=== PATIENT | male | born 1965 | race Caucasian/White ===

== ENCOUNTER 2020-10-07 08:02 | Outpatient (REF) | payer MEDICAID, SELFPAY | END 2020-10-07 08:03 | disposition home or self-care (01) | LOC: HO.LAB 08:02 | PROVIDERS: Visit Provider Internal Medicine | DX: Z20.828 Contact with and (suspected) exposure to other viral communicable diseases (principal) | CPT/HCPCS: C9803; U0003 ==

== ENCOUNTER 2020-10-28 08:08 | Outpatient (REF) | payer MEDICAID, SELFPAY ==
[2020-10-28 09:19] LABS: MANUAL DIFF FLAG NO
[2020-10-28 10:09] LABS: Albumin Level 3.9 g/dL (3.5-5.0); Anion Gap 13 (12-20); Blood Urea Nitrogen 25 mg/dL (9-16); Calcium 8.8 mg/dL (8.4-10.2); Carbon Dioxide 28 mmol/L (22-29); Chloride 103 mmol/L (96-108); Estimated Glomerular Filt Rate 44; Magnesium 1.9 mg/dL (1.6-2.6); Phosphorus 3.6 mg/dL (2.7-4.5); Potassium 5.1 mmol/l (3.3-5.1); Sodium 139 mmol/L (135-145)
[2020-10-28 10:45] LABS: Basophils Percent Auto 0.3 % (0-2); Eosinophils Absolute Auto 0.3 X10*3/uL (0.0-0.4); Eosinophils Percent Auto 3.9 % (0-4); Hematocrit 33.4 % (42-52); Hemoglobin 10.2 g/dl (14.0-18.0); Imm Gran Abs Auto 0.04 X10*3/uL (0.00-0.03); Imm Gran Pct Auto 0.6 % (0.0-0.4); Lymphocytes Absolute Auto 1.5 X10*3/uL (1.2-4.9); Lymphocytes Percent Auto 22.8 % (20-40); Mean Corpuscular HGB Conc 30.5 g/dl (31.0-36.0); Mean Corpuscular Hemoglobin 26.4 pg (27.0-33.0); Mean Corpuscular Volume 86.3 fL (80-98); Mean Platelet Volume 9.9 fL (9.4-12.4); Monocytes Absolute Auto 0.6 X10*3/uL (0.1-1.2); Monocytes Percent Auto 8.5 % (2-11); Neutrophils Absolute Auto 4.1 X10*3/uL (2.0-8.3); Neutrophils Percent Auto 63.9 % (45-73); Platelet Count 298 X10*3/uL (160-400); Red Blood Count 3.87 X10*6/uL (4.60-5.80); Red Cell Distribution Width 15.9 % (11.0-16.0); White Blood Count 6.5 X10*3/uL (4.8-10.8)
== END 2020-10-28 08:09 | disposition home or self-care (01) ==
LOC: HO.LAB 08:08
PROVIDERS: Visit Provider Internal Medicine Hypertension Specialist
DX: I12.9 Hypertensive chronic kidney disease with stage 1 through stage 4 chronic kidney disease, or unspecified chronic kidney disease (principal); N18.30 Chronic kidney disease, stage 3 unspecified
CPT/HCPCS: 36415; 80051; 82040; 82310; 82565; 83735; 84100; 84520; 85025; 87086

== ENCOUNTER 2021-01-02 07:37 | Emergency (ER) | payer MEDICAID, SELFPAY ==
[2021-01-02 07:41] VITALS: BP 167/108; PULSE 93; RESP 18; TEMP 37; O2SAT 99; BMI 31.0
--- NOTE | 2021-01-02 09:16 | ED_ITS ---
HPI - Eye Problem General Chief complaint: Eye Problems Stated complaint: R EYE ISSUE Time Seen by Provider: 01/02/21 07:48 Source: patient Mode of arrival: ambulatory Limitations: no limitations History of Present Illness HPI Narrative: 55-year-old male with a past medical history of hypertension, hyperlipidemia and colitis here with complaints of right eye burning, redness, drainage and itchiness for the last 2-3 days. No vision changes. Does not use contacts. Left eye is unaffected. He tells me that he had some crusting over the eye when he woke this morning. MD chief complaint: eye redness Related Data Previous Rx's Medication Instructions Recorded erythromycin 0.5 inch OPHTHALMIC (EYE) TID #3.5 01/02/21 g olopatadine 1 drp OPHTHALMIC (EYE) DAILY #2.5 01/02/21 ml Allergies Allergy/AdvReac Type Severity Reaction Status Date / Time Iodinated Contrast Media Allergy Intermediate HIVES Unverified 07/30/20 15:19 [IV CONTRAST] prednisone [PREDNISONE] Allergy Mild RASH Unverified 07/30/20 15:19 prednisolone Allergy Unknown rash Verified 06/23/20 00:00 Review of Systems Review of Systems: Yes all other systems are reviewed and are negative Constitutional: Constitutional: Reports no additional constitutional complaints, Denies body ache(s), Denies chills, Denies fever(s), Denies headache(s) and Denies weakness Eyes: Eyes: Reports no additional eye complaints, Denies change in vision, Reports eye discharge, Reports irritation and Reports photophobia ENT: Reports system reviewed and no additional complaints, except as document ed, Denies dizziness, Denies headache(s), Denies nasal congestion, Denies nasal discharge and Denies neck pain Cardiovascular: Cardiovascular: Reports no additional cardiovascular complaints, Denies chest pain, Denies leg edema and Denies dyspnea Respiratory: Respiratory: Reports no additional respiratory complaints, Denies cough and Denies dyspnea Gastrointestinal: Gastrointestinal: Reports no additional gastrointestinal complaints, Denies abdominal pain, Denies diarrhea, Denies nausea and Denies vomiting Genitourinary: Genitourinary: Denies urinary incontinence Musculoskeletal: Musculoskeletal: Reports no additional musculoskeletal complaints, Denies back pain, Denies arthralgias, Denies joint swelling, Denies neck pain, Denies numbness and Denies tingling Integumentary/Breasts: Skin/Breast: Reports system reviewed and no additional complaints, except as docu and Denies rash Neurologic: Reports system reviewed and no additional complaints, except as documented, Denies Abnormal speech present, Denies dizziness, Denies headache(s), Denies numbness, Denies tingling and Denies weakness PMFSH Past Medical History Attestation statement: The following information was validated with the patient. Source: old records reviewed and nursing notes reviewed Medical History Colitis HLD (hyperlipidemia) HTN (hypertension) Social History Social History Alcohol intake: never Smoking Status: Never smoker Use of substances other than those prescribed or required for medical reasons: No Advance Directives: No Advance Directives Information Provided: No Physical Exam Vital Signs: Vital Signs: Last Vital Signs Temp 98.6 F 01/02/21 07:41 Pulse 93 01/02/21 07:41 Resp 18 01/02/21 07:41 BP 167/108 H 01/02/21 07:41 Pulse Ox 99 01/02/21 07:41 Body Mass Index 31.0 Const: General: cooperative, healthy appearing, comfortable and no acute distress Orientation/consciousness: patient oriented x3 Limitations: no limitations HENMT: Head: Yes normal to inspection Ears: hearing grossly normal bilaterally General nose exam: Normal external nose present Face and sinus: Yes normal facial exam Mouth: Normal oral and palatal mucosa present Throat: Yes posterior oropharynx normal Eyes: Other: IOP 14 bilaterally General: appearance normal, both eyes and all related structures Visual Toney: normal visual toney by confrontation Alignment and Position: alignment normal Periorbital: periorbital findings normal Eyelids: Yes other (mild upper right eyelid swelling and erythema) Conjunctivae: conjunctival abnormal right (swelling) conjunctival injection and discharge (clear ) Sclerae: sclerae normal Corneas: corneas normal and fluorescein used (NO FB or abrasion) Pupils: Equal, round and reactive pupils present EOM: EOMs intact bilaterally Direct Ophthalmoscopy: normal light reflex and photophobia Neck: Neck: Yes normal visual inspection Chest: Chest palpation & inspection: normal inspection of the chest Resp: Effort & Inspection: normal respiratory effort Auscultation: clear to auscultation bilaterally Cardio: Rate: regular rate Rhythm: regular rhythm Peripheral pulses: Peripheral pulses 2+ throughout GI: Inspection: Yes normal to inspection Palpation (GI): Soft to palpation and nontender Auscultation: normal bowel sounds Back/Spine/Pelvis: Thoracic/Lumbar Spine: thoracic and lumbar spine normal to inspection Skin: General skin exam: no rashes or lesions noted Neuro: General: patient oriented x3, no focal motor deficits and normal sensation to monofilament Cranial nerves: Yes Equal, round and reactive pupils present Cognition (Neuro): normal cognition Speech: No Abnormal speech present Gait exam (Neuro): Normal gait present Motor exam (neuro): 5/5 motor strength present throughout Extrem: General: Yes normal to inspection Course Course Course Narrative: R eye itching, erythema, clear discharge with photophobia. No vision changes. Exam shows conjunctival injection, erythema and discharge. No visual complaints, IOP normal, no corneal FB or abrasion. Likely allergic conjunctivitis now with bacterial conjunctivitis. Reviewed worrisome signs and symptoms and when to return to the emergency department. Comfortable discharge home. Discharge Plan Discharge Clinical Impression: Bacterial conjunctivitis Allergic conjunctivitis Qualifiers: Laterality: right Qualified Code(s): H10.11 - Acute atopic conjunctivitis, right eye Patient Disposition: Home, Self-Care Instructions: Conjunctivitis (ED) Additional Instructions: Wash your hands after using your medications and prior to touching anything else Cool compresses to the eye Follow-up with opthamology as discussed Return for vision changes, vomiting, severe headache Prescriptions: New erythromycin 5 mg/gram (0.5 %) ointment 0.5 inch ophthalmic (eye) TID Qty: 3.5 RF: 0 olopatadine 0.2 % drops 1 drp ophthalmic (eye) DAILY Qty: 2.5 RF: 0 Referrals: Baldemar Munoz [Physician] - 2 days Interventions: ED Discharge Assessment Last Done: 01/02/21 09:28 Discharge Date/Time: 01/02/21 09:28
[2021-01-02] MEDS: Tetracaine HCl/PF 0.5% Oph Sol 4 ML DROPS 3 DROP EYE-RIGHT (09:17)
[2021-01-02] MEDS: Fluorescein Sodium STRIP 1 STRIP EYE-RIGHT (09:18)
== END 2021-01-02 09:28 | disposition home or self-care (01) ==
PROVIDERS: Emergency Provider Emergency Medicine; PCP Nurse Practitioner Family
DX: H10.11 Acute atopic conjunctivitis, right eye (principal); I10 Essential (primary) hypertension
CPT/HCPCS: 99283; 99284

== ENCOUNTER 2021-01-20 08:07 | Emergency (ER) | payer MEDICAID, SELFPAY ==
[2021-01-20 09:38] VITALS: BP 134/84; PULSE 63; RESP 16; TEMP 36.6; O2SAT 99; BMI 31.0
--- NOTE | 2021-01-20 10:42 | ED_ITS ---
HPI - Skin/Abscess/Foreign Bdy General Chief complaint: Skin/Abscess/Foreign Body Stated complaint: lump on abdomen Time Seen by Provider: 01/20/21 09:44 Source: patient Mode of arrival: ambulatory Limitations: no limitations History of Present Illness HPI narrative: Patient also for the last week he has had a cyst on his lower abdomen which is painful with some slight drainage. No fevers or chills. MD complaint: abscess/boil Related Data Previous Rx's Medication Instructions Recorded erythromycin 0.5 inch OPHTHALMIC (EYE) TID #3.5 01/02/21 g olopatadine 1 drp OPHTHALMIC (EYE) DAILY #2.5 01/02/21 ml acetaminophen 650 mg PO Q4H PRN #20 cap 01/20/21 doxycycline monohydrate 100 mg PO BID #14 cap 01/20/21 Allergies Allergy/AdvReac Type Severity Reaction Status Date / Time Iodinated Contrast Media Allergy Intermediate HIVES Unverified 07/30/20 15:19 [IV CONTRAST] prednisone [PREDNISONE] Allergy Mild RASH Unverified 07/30/20 15:19 prednisolone Allergy Unknown rash Verified 06/23/20 00:00 Review of Systems Review of Systems: Yes all other systems are reviewed and are negative Constitutional: Constitutional: Reports no additional constitutional complaints, Denies body ache(s), Denies chills, Denies fever(s), Denies headache(s) and Denies weakness Eyes: Eyes: Reports no additional eye complaints and Denies change in vision ENT: Reports system reviewed and no additional complaints, except as documented, Denies dizziness, Denies headache(s), Denies nasal congestion, Denies nasal discharge and Denies neck pain Cardiovascular: Cardiovascular: Reports no additional cardiovascular complaints, Denies chest pain, Denies leg edema and Denies dyspnea Respiratory: Respiratory: Reports no additional respiratory complaints, Denies cough and Denies dyspnea Gastrointestinal: Gastrointestinal: Reports no additional gastrointestinal complaints, Denies abdominal pain, Denies diarrhea, Denies nausea and Denies vomiting Genitourinary: Genitourinary: Denies urinary incontinence Musculoskeletal: Musculoskeletal: Reports no additional musculoskeletal complaints, Denies back pain, Denies arthralgias, Denies joint swelling, Denies neck pain, Denies numbness and Denies tingling Integumentary/Breasts: Skin/Breast: Reports system reviewed and no additional complaints, except as docu, Reports swelling, Reports erythema and Denies rash Neurologic: Reports system reviewed and no additional complaints, except as documented, Denies Abnormal speech present, Denies dizziness, Denies headache(s), Denies numbness, Denies tingling and Denies weakness PMFSH Past Medical History Attestation statement: The following information was validated with the patient. Source: old records reviewed and nursing notes reviewed Medical History Colitis HLD (hyperlipidemia) HTN (hypertension) Surgical History History of colostomy reversal Social History Social History Alcohol intake: never Smoking Status: Never smoker Smoked in Last 30 Days: No Use of substances other than those prescribed or required for medical reasons: No Advance Directives: Yes Advance Directives Information Provided: Yes Advance Directives on File: No Physical Exam Vital Signs: Vital Signs: Last Vital Signs Temp 97.9 F 01/20/21 09:38 Pulse 63 01/20/21 09:38 Resp 16 01/20/21 09:38 BP 134/84 01/20/21 09:38 Pulse Ox 99 01/20/21 09:38 Body Mass Index 31.0 Const: General: cooperative, healthy appearing, comfortable and no acute distress Orientation/consciousness: patient oriented x3 Limitations: no limitations HENMT: Head: Yes normal to inspection Ears: hearing grossly normal bilaterally General nose exam: Normal external nose present Face and sinus: Yes normal facial exam Mouth: Normal oral and palatal mucosa present Throat: Yes posterior oropharynx normal Eyes: General: appearance normal, both eyes and all related structures Pupils: Equal, round and reactive pupils present Neck: Neck: Yes normal visual inspection Chest: Chest palpation & inspection: normal inspection of the chest Resp: Effort & Inspection: normal respiratory effort Auscultation: clear to auscultation bilaterally Cardio: Rate: regular rate Rhythm: regular rhythm Peripheral pulses: Peripheral pulses 2+ throughout GI: Inspection: Yes normal to inspection Palpation (GI): Soft to palpation and nontender Auscultation: normal bowel sounds Back/Spine/Pelvis: Thoracic/Lumbar Spine: thoracic and lumbar spine normal to inspection Skin: Other: to the low abdomen there is a small superficial abscess with mild induration. NO fluctuance. General skin exam: no rashes or lesions noted Neuro: General: patient oriented x3, no focal motor deficits and normal sensation to monofilament Cranial nerves: Yes Equal, round and reactive pupils present Cognition (Neuro): normal cognition Speech: No Abnormal speech present Gait exam (Neuro): Normal gait present Motor exam (neuro): 5/5 motor strength present throughout Extrem: General: Yes normal to inspection Course Course Course Narrative: Very small superficial lower abdomen abscess with no fluctuance. Will start patient on oral antibiotics. Recommended warm compresses at home. Reviewed worrisome signs and symptoms of when to return to the emergency department. Comfortable discharge home. Discharge Plan Discharge Clinical Impression: Abscess of skin or subcutaneous tissue Qualifiers: Site of cutaneous abscess: trunk Site of cutaneous abscess of trunk: abdominal wall Qualified Code(s): L02.211 - Cutaneous abscess of abdominal wall Patient Disposition: Home, Self-Care Instructions: Abscess (ED) Additional Instructions: Your cyst is not ready to be drained. Apply a warm compresses or warm tea bags 4 times a day Cover it with topical antibiotic ointment and a bandage. Do not wear your pants directly on the site of the cyst. Take antibiotics as prescribed Prescriptions: New acetaminophen 325 mg capsule 650 mg PO Q4H PRN (Reason: pain) Qty: 20 RF: 0 doxycycline monohydrate 100 mg capsule 100 mg PO BID Qty: 14 RF: 0 No Action erythromycin 5 mg/gram (0.5 %) ointment 0.5 inch ophthalmic (eye) TID Qty: 3.5 RF: 0 olopatadine 0.2 % drops 1 drp ophthalmic (eye) DAILY Qty: 2.5 RF: 0 Referrals: Maikel Montenegro NP [Primary Care Provider] - 2 days Interventions: ED Discharge Assessment Last Done: 01/20/21 10:28 Discharge Date/Time: 01/20/21 10:28 Print Language: Montserratian
== END 2021-01-20 10:28 | disposition home or self-care (01) ==
PROVIDERS: Emergency Provider Emergency Medicine Emergency Medical Services; PCP Nurse Practitioner Family
DX: L02.211 Cutaneous abscess of abdominal wall (principal); I10 Essential (primary) hypertension; Z79.899 Other long term (current) drug therapy
CPT/HCPCS: 99283

== ENCOUNTER 2021-03-03 12:11 | Inpatient (IN) | payer MEDICAID, SELFPAY ==
--- NOTE | ~2021-03-03 | CT_ITS ---
EXAMINATION: CT ABDOMEN AND PELVIS WITHOUT CONTRAST CLINICAL INFORMATION: Severe diarrhea. History of colitis. COMPARISON: December 03, 2019 TECHNIQUE: Multidetector volumetric imaging was performed from the superior aspect of the liver through the pubic symphysis. Sagittal and coronal reformatted images were obtained on the technologist's workstation. This CT examination was performed using dose optimization techniques as appropriate, variously including the following: *Automated exposure control *Adjustment of mA and/or kV according to patient size (this includes techniques or standardized protocols for targeted exams where dose is matched to indication/reason for exam; i.e. extremities or head) *Use of iterative reconstruction technique DLP: 949 mGy-cm FINDINGS: LUNG BASES: There is some mild dependent atelectasis present. No pleural or pericardial effusion. Heart is upper limits of normal in size. Aortic valvular and coronary artery calcifications present. LIVER, GALLBLADDER, AND BILIARY TREE: Hepatomegaly is present with vertical span of approximately 22 cm. No focal hepatic mass or intrahepatic bile duct dilatation is identified. The gallbladder is decompressed without pericholecystic fluid or inflammatory change. PANCREAS: Unremarkable. SPLEEN: Unremarkable. A calcified granuloma is present. ADRENAL GLANDS: Unremarkable. KIDNEYS AND URETERS: The kidneys are normal in size, shape, and attenuation. No hydronephrosis, hydroureter, or calculi seen. No perinephric stranding. BLADDER: Unremarkable. GASTROINTESTINAL TRACT: No dilated loops of large or small bowel are evident. Patient status post there is a subtotal colectomy with anastomosis of small bowel to distal sigmoid colon. No free air or free fluid. There is wall thickening involving the remaining sigmoid colon with no significant adjacent soft tissue stranding. No drainable fluid collection is evident. ABDOMINAL WALL: No significant hernia is appreciated. There is a supraumbilical anterior mesh in place. LYMPH NODES: There is an enlarged but normal-appearing left periaortic lymph node at the level of the left renal vein. VASCULAR: There is mild aortoiliac calcified plaque. No abdominal aortic aneurysm. PELVIC VISCERA: Unremarkable. OSSEOUS STRUCTURES: No suspicious destructive bony lesion identified. There are changes of enthesopathy present about the pelvis. There is degenerative change of the SI joints bilaterally. There is significant degenerative disc disease seen with loss of the disc space and marginal sclerosis and spurring at the L5-S1 level. CT/CT abdomen pelvis wo con IMPRESSION: Status post colectomy with thickened wall of remaining sigmoid colon without drainable abscess collection or significant adjacent inflammatory change. Finding does have the appearance of colitis. Hepatomegaly.
[2021-03-03 12:39] VITALS: BP 110/56; PULSE 75; RESP 18; TEMP 36.7; O2SAT 96; BMI 30.2
[2021-03-03 12:54] LABS: MANUAL DIFF FLAG NO
[2021-03-03 12:59] LABS: Basophils Percent Auto 0.6 % (0-2); Eosinophils Absolute Auto 0.2 X10*3/uL (0.0-0.4); Eosinophils Percent Auto 2.3 % (0-4); Hematocrit 31.7 % (42-52); Hemoglobin 10.1 g/dl (14.0-18.0); Imm Gran Abs Auto 0.03 X10*3/uL (0.00-0.03); Imm Gran Pct Auto 0.5 % (0.0-0.4); Lymphocytes Absolute Auto 1.4 X10*3/uL (1.2-4.9); Mean Corpuscular HGB Conc 31.9 g/dl (31.0-36.0); Mean Corpuscular Hemoglobin 28.8 pg (27.0-33.0); Mean Corpuscular Volume 90.3 fL (80-98); Mean Platelet Volume 10.1 fL (9.4-12.4); Monocytes Absolute Auto 0.8 X10*3/uL (0.1-1.2); Monocytes Percent Auto 12.5 % (2-11); Neutrophils Absolute Auto 4.1 X10*3/uL (2.0-8.3); Neutrophils Percent Auto 63.1 % (45-73); Platelet Count 145 X10*3/uL (160-400); Red Blood Count 3.51 X10*6/uL (4.60-5.80); Red Cell Distribution Width 19.2 % (11.0-16.0); White Blood Count 6.4 X10*3/uL (4.8-10.8)
[2021-03-03 13:26] LABS: Anion Gap 14 (12-20); Blood Urea Nitrogen 40 mg/dL (9-16); Calcium 8.2 mg/dL (8.4-10.2); Carbon Dioxide 21 mmol/L (22-29); Chloride 107 mmol/L (96-108); Creatinine Clr Calc Pharmacy 32.9; Estimated Glomerular Filt Rate 23; Glucose Random 120 mg/dL (60-115); Potassium 3.9 mmol/L (3.3-5.1); Sodium 138 mmol/L (135-145)
[2021-03-03] MEDS: 0.9 % Sodium Chloride 1,000 ML 999 ML IVCONT (13:56)
--- NOTE | 2021-03-03 14:03 | ED_ITS ---
HPI - General Adult General Chief complaint: General Medical Stated complaint: Diarrhea Time Seen by Provider: 03/03/21 13:30 Source: patient Mode of arrival: ambulatory Limitations: no limitations History of Present Illness HPI narrative: 56 y/o male with history of Crohn's disease, s/p total colectomy at [facility] 9 years ago who presents to the ED with 1 week of profuse loose and watery, non-bloody stools. He reports some generalized abdominal discomfort and 9/10 rectal pain from going to the bathroom so frequently. He states it is very painful to wipe. No blood. He denies fever, chills, N/V, chest pain or SOB. He reports 4-5 episodes per day diarrhea. He has been eating less but trying to stay hydrated and drinking water but he is having a hard time keeping up with how often he is going. MD complaint: diarrhea x1 week Onset (ago): week(s) (1) Location: abdomen and buttocks Radiation: non-radiation Severity: severe Severity scale (1-10): 9 Quality: stabbing and aching Pain Consistency: constant Relieving factors: none Exacerbating factors: eating Associated symptoms: weakness (mild generalized) Treatments prior to arrival: none Related Data Home Medications Medication Instructions Recorded Confirmed felodipine 1 tab PO QPM 03/03/21 ferrous sulfate 1 tab PO QAM 03/03/21 gabapentin 1 cap PO TID 03/03/21 ketotifen fumarate 1 drp OPHTHALMIC-RIGHT DAILY 03/03/21 lidocaine patch TOPICAL 03/03/21 mesalamine 2 cap PO QID 03/03/21 metoprolol tartrate 1 tab PO BID 03/03/21 pantoprazole 1 tab PO QAM 03/03/21 zolpidem 1 tab PO BEDTIME 03/03/21 Previous Rx's Medication Instructions Recorded erythromycin 0.5 inch OPHTHALMIC (EYE) TID #3.5 01/02/21 g olopatadine 1 drp OPHTHALMIC (EYE) DAILY #2.5 01/02/21 ml acetaminophen 650 mg PO Q4H PRN #20 cap 01/20/21 doxycycline monohydrate 100 mg PO BID #14 cap 01/20/21 Allergies Allergy/AdvReac Type Severity Reaction Status Date / Time Iodinated Contrast Media Allergy Intermediate HIVES Unverified 07/30/20 15:19 [IV CONTRAST] prednisone [PREDNISONE] Allergy Mild RASH Unverified 07/30/20 15:19 prednisolone Allergy Unknown rash Verified 06/23/20 00:00 Review of Systems Review of Systems: Constitutional: No Fever, No Chills ENT/Mouth: No sore throat, No Rhinorrhea, No Swallowing Difficulty Cardiovascular: No Chest Pain, No SOB Respiratory: No Cough, No Sputum, No Wheezing, No dyspnea Gastrointestinal: No Nausea, No Vomiting, + Diarrhea, + abdominal Pain, No Hematochezia, No Melena Genitourinary: No Dysuria, No Urinary Frequency, No Hematuria Musculoskeletal: No joint pain, No Myalgias Skin: No Skin Lesions, No rash Neuro: + Weakness, No Numbness, No Dizziness, No Headache Psych: No Anxiety/Panic, No Depression Heme/Lymph: No Bruising, No Lymphadenopathy Endocrine: No Polyuria, No Polydipsia PMFSH Past Medical History Attestation statement: The following information was validated with the patient. Medical History (Updated 03/03/21 @ 17:05 by EDU Ayers) CKD (chronic kidney disease) Colitis HLD (hyperlipidemia) HTN (hypertension) Surgical History (Updated 03/03/21 @ 16:58 by Rebecca Houston NP) H/O cervical spine surgery H/O total colectomy History of colostomy reversal Family History Family History (Updated 03/03/21 @ 17:00 by Rebecca Houston NP) Mother Stroke Diabetes mellitus HTN (hypertension), benign Hyperlipidemia Brother Diabetes mellitus Social History Social History Alcohol intake: never Smoking Status: Never smoker Advance Directives: No Advance Directives Information Provided: No Physical Exam Vital Signs: Vital Signs: Last Vital Signs Temp 98.1 F 03/03/21 12:39 Pulse 67 03/03/21 14:10 Resp 16 03/03/21 14:10 BP 108/53 L 03/03/21 14:10 Pulse Ox 98 03/03/21 14:10 Body Mass Index 30.2 Appearance: Alert. Oriented X3. No acute distress. Eyes: Pupils equal, round and reactive to light. ENT: Pharynx normal. Neck: Normal inspection. Neck supple. CVS: Normal heart rate and rhythm. Pulses normal. Respiratory: No respiratory distress. Breath sounds normal. Abdomen: Softly distended with moderate diffuse tenderness, mostly around umbilicus. +guarding and rebound. +hyperactive BS x4, not high pitched. GUDELIA: skin around anus is mildly erythematous and raw, tender to touch, no apprecibale fistula or fissue appreciated. tender rectal examination with normal rectal tone, no masses, no bleeding. Skin: Skin warm and dry. Normal skin color. Normal skin turgor. No rashes. Extremities: No lower extremity edema. Neuro: Oriented X 3. No motor deficit. No sensory deficit. Course Course Course Narrative: 56 y/o male with history of Crohn's disease s/p total colectomy and colostomy reversal several years ago presenting to the ED wtih 5-7 days of progressively worsening diarrhea and abdominal pain. VS stable on arrival, no fevers. He is tender throughout his abdomen but it is soft. Initial labs showing CITLALY on probable CKD. Likely pre-renal due to dehydration and hypovolemia. No leukocytosis. IVF ordered. Will get dry CT for further evaluation. Doubt obstruction without N/V. Reevaluation(s) Reevaluation #1: CT scan showing: Status post colectomy with thickened wall of remaining sigmoid colon without drainable abscess collection or significant adjacent inflammatory change. Finding does have the appearance of colitis. Hepatomegaly. IV antibiotics ordered. Initial dose of IV Fentanyl helped but pain persists. Additional Fentanyl ordered. Dr. Godwin tigertexted on recs. Will plan for admission. Dr. Coreas texted for admission. Patient aware of plan and agrees to admission. Medical Decision Making Lab Data Result diagrams: 03/03/21 12:50 03/03/21 12:50 Labs: Lab Results 03/03/21 03/03/21 Range/Units 12:50 12:50 WBC 6.4 (4.8-10.8) X10*3/uL RBC 3.51 L (4.60-5.80) X10*6/uL Hgb 10.1 L (14.0-18.0) g/dl Hct 31.7 L (42-52) % MCV 90.3 (80-98) fL MCH 28.8 (27.0-33.0) pg MCHC 31.9 (31.0-36.0) g/dl RDW 19.2 H (11.0-16.0) % Plt Count 145 L D (160-400) X10*3/uL MPV 10.1 (9.4-12.4) fL Immature Gran % (Auto) 0.5 H (0.0-0.4) % Neut % (Auto) 63.1 (45-73) % Lymph % (Auto) 21.0 (20-40) % Cotton % (Auto) 12.5 H (2-11) % Eos % (Auto) 2.3 (0-4) % Baso % (Auto) 0.6 (0-2) % Lymph # (Auto) 1.4 (1.2-4.9) X10*3/uL Cotton # (Auto) 0.8 (0.1-1.2) X10*3/uL Eos # (Auto) 0.2 (0.0-0.4) X10*3/uL Baso # (Auto) 0.0 (0.0-0.2) X10*3/uL Abs Immat Gran (auto) 0.03 (0.00-0.03) X10*3/uL Absolute Neuts (auto) 4.1 (2.0-8.3) X10*3/uL Absolute Nucleated RBC 0.000 (0.0-0.012) X10*3/uL Nucleated RBC % (auto) 0.0 (0.0-0.2) /100WBC Sodium 138 (135-145) mmol/L Potassium 3.9 (3.3-5.1) mmol/L Chloride 107 (96-108) mmol/L Carbon Dioxide 21 L (22-29) mmol/L Anion Gap 14 (12-20) BUN 40 H D (9-16) mg/dL Creatinine 2.82 H (0.5-1.4) mg/dL Estim Creat Clear Calc 32.9 Estimated GFR 23 Random Glucose 120 H (60-115) mg/dL Calcium 8.2 L D (8.4-10.2) mg/dL Total Bilirubin 0.5 (0.0-1.0) mg/dL Direct Bilirubin 0.2 (0.0-0.5) mg/dL AST 39 H (5-37) U/L ALT 24 (0-40) U/L Alkaline Phosphatase 68 (39-117) U/L Total Protein 7.2 (6.5-8.0) g/dL Albumin 3.7 (3.5-5.0) g/dL Discharge Plan Discharge Clinical Impression: Colitis, Acute kidney injury superimposed on CKD, Acute dehydration Patient Disposition: Admitted As Inpatient Prescriptions: No Action erythromycin 5 mg/gram (0.5 %) ointment 0.5 inch ophthalmic (eye) TID Qty: 3.5 RF: 0 olopatadine 0.2 % drops 1 drp ophthalmic (eye) DAILY Qty: 2.5 RF: 0 acetaminophen 325 mg capsule 650 mg PO Q4H PRN (Reason: pain) Qty: 20 RF: 0 doxycycline monohydrate 100 mg capsule 100 mg PO BID Qty: 14 RF: 0 ketotifen fumarate 0.025 % (0.035 %) drops 1 drp ophthalmic-Right DAILY RF: 0 felodipine 5 mg tablet extended release 24 hr 1 tab PO QPM RF: 0 pantoprazole 40 mg tablet,delayed release (DR/EC) 1 tab PO QAM RF: 0 ferrous sulfate 325 mg (65 mg iron) tablet 1 tab PO QAM RF: 0 lidocaine 5 % adhesive patch,medicated topical RF: 0 metoprolol tartrate 50 mg tablet 1 tab PO BID RF: 0 gabapentin 100 mg capsule 1 cap PO TID RF: 0 zolpidem 10 mg tablet 1 tab PO BEDTIME RF: 0 mesalamine 400 mg capsule (with del rel tablets) 2 cap PO QID RF: 0
[2021-03-03 14:09] LABS: Alanine Aminotransferase 24 U/L (0-40); Albumin Level 3.7 g/dL (3.5-5.0); Alkaline Phosphatase 68 U/L (39-117); Aspartate Amino Transferase 39 U/L (5-37); Bilirubin Direct 0.2 mg/dL (0.0-0.5); Bilirubin Total 0.5 mg/dL (0.0-1.0); Total Protein 7.2 g/dL (6.5-8.0)
[2021-03-03 14:10] VITALS: BP 108/53; PULSE 67; RESP 16; O2SAT 98
[2021-03-03] MEDS: fentaNYL citrate/PF 100 MCG/2 ML VIAL 50 MCG IVPUSH (14:15)
[2021-03-03 16:50] VITALS: BP 116/61; PULSE 64; O2SAT 99
--- NOTE | 2021-03-03 16:54 | P.HPHOSP_ITS ---
History of Present Illness Date of Service: 03/03/21 <Rebecca Houston NP - Last Filed: 03/03/21 18:04> Chief Complaint: abdominal pain and diarrhea <Rebecca Houston NP - Last Filed: 03/03/21 18:04> 56-year-old man with history of Crohn's disease presents with complaints of diarrhea and abdominal pain over the last week. He denies any recent travel or improperly cooked foods. He has a history of colectomy approximately 9 years ago he reports that he has not had a Crohn's exacerbation in many years. He is on mesalamine chronically. He reports that he started having abdominal pain and cramping and watery stools with gas several times a day and he has been having trouble eating and sleeping. He denied chest pain, shortness of breath, nausea, vomiting. He did report when he has diarrhea he notices some blood on the toilet paper but none in the toilet. abdominal CT shows colitis to the remai leonel sigmoid colon without any abscess or fluid collection. Vital signs are stable. Creatinine is elevated 2.82. He was given Rocephin, Flagyl, IV fluid and pain medicine. He will be admitted for further management and treatment of acute colitis. <Rebecca Houston NP - Last Filed: 03/03/21 18:04> Review of Systems Review of Systems: Denies any recent fever chills or decrease in appetite respiratory denies any shortness of breath coverage production cardiovascular is adjustment of any PND or edema gastrointestinal denies any dysphagia abdominal pain nausea vomiting or diarrhea genitourinary denies any dysuria frequency or hematuria musculoskeletal denies any joint pain or swelling neuropsych denies any weakness or seizures all other systems reviewed are negative <Rebecca Houston NP - Last Filed: 03/03/21 18:04> [facility] Medical History: Medical History CKD (chronic kidney disease) Colitis HLD (hyperlipidemia) HTN (hypertension) <Rebecca Houston NP - Last Filed: 03/03/21 18:04> Family History: Family History (Updated 03/03/21 @ 17:00 by Rebecca Houston NP) Mother Stroke Diabetes mellitus HTN (hypertension), benign Hyperlipidemia Brother Diabetes mellitus <Rebecca Houston NP - Last Filed: 03/03/21 18:04> Surgical History: Surgical History H/O cervical spine surgery H/O total colectomy History of colostomy reversal <Rebecca Houston NP - Last Filed: 03/03/21 18:04> Social History: Social History Household Members: None Housing: House Do you presently have visiting nurse or other home services: No Alcohol intake: never Smoking Status: Never smoker Use of substances other than those prescribed or required for medical reasons: Yes Substance Use Type: Heroin Substance Use Frequency: Daily Last Used Substance: Days (ago) Last Used Substance Other:: 7 days Currently Displaying Signs/Symptoms of Drug Intoxication Withdrawal: No Any prior treatment program specific to substance use: Yes Do you feel safe in your current relationship?: No Current Relationship Is there a partner from a previous relationship who is making you feel unsafe now?: No Are you made to feel afraid or neglected: No Advance Directives: No Advance Directives Information Provided: No Do you have thoughts of harming others: None Do you have a plan to hurt others: No Plan Recently lost weight without trying: No <Rebecca Houston NP - Last Filed: 03/03/21 18:04> Meds Allergies/Adverse reactions: Allergies Allergy/AdvReac Type Severity Reaction Status Date / Time Iodinated Contrast Media Allergy Intermediate HIVES Unverified 07/30/20 15:19 [IV CONTRAST] prednisone [PREDNISONE] Allergy Mild RASH Unverified 07/30/20 15:19 prednisolone Allergy Unknown rash Verified 06/23/20 00:00 <Rebecca Houston NP - Last Filed: 03/03/21 18:04> Active Medications: Current Medications Generic Name Dose Route Start Last Admin Trade Name Freq PRN Reason Stop Dose Admin Ceftriaxone Sodium 1 gm/ 50 mls @ 100 mls/hr 03/04/21 15:00 Sodium Chloride IV Q24H MELVI Metronidazole 500 mg in 100 mls @ 100 mls/hr 03/03/21 22:00 Flagyl IV Q8H MELVI Dextrose/Sodium Chloride 1,000 mls @ 80 mls/hr 03/03/21 17:00 D5ns IVCONT .[id number] MELVI Morphine Sulfate 2 mg 03/03/21 16:53 Morphine Sulfate 2 Mg/Ml Cartridge IVPUSH Q4H PRN Pain, Moderate (Pain Scale 4-6 Ondansetron HCl 4 mg 03/03/21 16:50 Ondansetron Hcl 4 Mg/2 Ml Vial IVPUSH Q8H PRN Nausea and Vomiting Pharmacy Consult 1 each 03/03/21 16:45 Consult Rx Perform Med Rec MISCELLANE ONCE PRN Consult order Sodium Chloride 3 ml 03/04/21 00:00 0.9 % Sodium Chloride Flush 3 Ml Syringe IVFLUSH QSHIFT [facility] <Rebecca Houston NP - Last Filed: 03/03/21 18:04> Home medications: Home Medications Medication Instructions Recorded Confirmed Last Taken Type felodipine 1 tab PO DAILY 03/03/21 03/03/21 03/03/21 History ferrous sulfate 1 tab PO DAILY 03/03/21 03/03/21 03/03/21 History gabapentin 1 cap PO TID 03/03/21 03/03/21 03/03/21 History ketotifen fumarate 1 drp OPHTHALMIC-RIGHT DAILY 03/03/21 03/03/21 03/03/21 History lidocaine 1 patch TOPICAL DAILY 03/03/21 03/03/21 03/02/21 History mesalamine 2 cap PO TID 03/03/21 03/03/21 03/03/21 History metoprolol tartrate 1 tab PO BID 03/03/21 03/03/21 03/03/21 History pantoprazole 1 tab PO DAILY 03/03/21 03/03/21 03/03/21 History rosuvastatin 1 tab PO BEDTIME 03/03/21 03/03/21 03/02/21 History zolpidem 1 tab PO BEDTIME 03/03/21 03/03/21 03/02/21 History <Rebecca Houston NP - Last Filed: 03/03/21 18:04> Physical Exam Vital Signs and Narrative: Vital Signs: Last Vital Signs Temp 98.1 F 03/03/21 12:39 Pulse 67 03/03/21 14:10 Resp 16 03/03/21 14:10 BP 108/53 L 03/03/21 14:10 Pulse Ox 98 03/03/21 14:10 Body Mass Index 30.2 <Rebecca Houston NP - Last Filed: 03/03/21 18:04> Appearing in no acute distress head is normocephalic atraumatic eyes pupils are PERRLA sclera is anicteric mouth throat mucous membranes are intact and moist neck is supple no lymphadenopathy, no JVD noted lung sounds are clear to auscultation heart regular rate rhythm, clear S1, S2 positive bowel sounds, abdomen tender diffuse neuro patient is alert x3, no focal deficits <Rebecca Houston NP - Last Filed: 03/03/21 18:04> Results Labs CBC and Chem 7: : 03/04/21 05:40 03/04/21 05:40 <Rebecca Houston NP - Last Filed: 03/03/21 18:04> Labs: Laboratory Results - last 24 hr 03/03/21 03/03/21 12:50 12:50 MCV 90.3 MCH 28.8 MCHC 31.9 RDW 19.2 H Plt Count 145 L D MPV 10.1 Immature Gran % (Auto) 0.5 H Neut % (Auto) 63.1 Lymph % (Auto) 21.0 [place] % (Auto) 12.5 H Eos % (Auto) 2.3 Baso % (Auto) 0.6 Lymph # (Auto) 1.4 [place] # (Auto) 0.8 Eos # (Auto) 0.2 Baso # (Auto) 0.0 Abs Immat Gran (auto) 0.03 Absolute Neuts (auto) 4.1 Absolute Nucleated RBC 0.000 Nucleated RBC % (auto) 0.0 Anion Gap 14 Estim Creat Clear Calc 32.9 Estimated GFR 23 Random Glucose 120 H Calcium 8.2 L D Total Bilirubin 0.5 Direct Bilirubin 0.2 AST 39 H ALT 24 Alkaline Phosphatase 68 Total Protein 7.2 Albumin 3.7 <Rebecca Houston NP - Last Filed: 03/03/21 18:04> Imaging Radiologist's Impressions: Impressions Abdomen/Pelvis CT 03/03/21 13:30 IMPRESSION: Status post colectomy with thickened wall of remaining sigmoid colon without drainable abscess collection or significant adjacent inflammatory change. Finding does have the appearance of colitis. Hepatomegaly. <Rebecca Houston NP - Last Filed: 03/03/21 18:04> Assessment and Plan (1) Ulcerative colitis: Status: Acute <Rebecca Houston NP - Last Filed: 03/03/21 18:04> 56 year old man admitted with abdominal pain found to have colitis. Patient has had history of Crohn's with colectomy more than 9 years ago at [facility]. Colitis. Multiple episodes of diarrhea over the last week, history of Crohn's. Hold off on steroids for now as per Gastroenterology Nitza Lobo Check stool studies NPO for now IV fluids CITLALY on CKD . Likely related to diarrhea, hypokalemia. IV fluids Follow BMP closely If no improvement seen consider consulting Nephrology. Normocytic anemia /thrombocytopenia. Stool occult negative. Patient reports blood on the toilet paper but none in the stool. Trend Hypertension. Blood pressure on the softer side. Hold felodipine and metoprolol for now. Hyperlipidemia Statin DVT prophylaxis with heparin Attending: Dr. Laird <Rebecca Houston NP - Last Filed: 03/03/21 18:04> (2) Acute kidney injury superimposed on CKD: Status: Acute <Rebecca Houston NP - Last Filed: 03/03/21 18:04> (3) Acute dehydration: Status: Acute <Rebecca Houston NP - Last Filed: 03/03/21 18:04> (4) Colitis: Status: Acute <Rebecca Houston NP - Last Filed: 03/03/21 18:04> Addendum to documentation by midlevel I saw and examined the patient and participated in the arias portion of the E/M service. I agree with the history and exam as documented by EQUIPMENT MECHANIC, patient presents with abdominal pain and has colitis, renal failure. Will admit fo IV Abx, pain management and hydration. O/w I agree with A/P per H and P <Herb Laird MD - Last Filed: 03/04/21 11:16>
--- NOTE | 2021-03-03 17:34 | PC.NURSE ---
pt being admitted for acute colitis flare, came in with abd pain, IV LAC ns bolus given, seen by hospitalist
--- NOTE | 2021-03-03 18:31 | PC.NURSE ---
tech currently at bedside getting blood cultures and lactic
[2021-03-03 19:02] LABS: Lactic Acid 1.3 mmol/L (0.5-2.0)
--- NOTE | 2021-03-03 19:04 | PC.NURSE ---
attempted to call report were unable to take at this time. report given to amaya jimenez
--- NOTE | 2021-03-03 19:11 | PC.NURSE ---
Report received. PT is resting in bed, no apparent distress. PT is waiting to be transferred to a bed upstairs. Report done by NEGRO Wolff.
[2021-03-03] MEDS: Heparin Sodium,Porcine 5,000 UNIT/ML VIAL 5000 UNIT SUBCUT (19:14)
[2021-03-03] MEDS: cefTRIAXone sodium 1 GM in 0.9 % Sodium Chloride 50 ML IV (19:14)
[2021-03-03] MEDS: Morphine Sulfate 2 MG/ML CARTRIDGE IVPUSH (19:18)
[2021-03-03 19:53] VITALS: BP 161/72; PULSE 67; RESP 17; TEMP 36.6; O2SAT 98
[2021-03-03] MEDS: Zolpidem Tartrate 5 MG TABLET 10 MG PO (21:33)
[2021-03-03] MEDS: Gabapentin 100 MG CAPSULE PO (21:33)
[2021-03-03] MEDS: Mesalamine 400 MG CAP.DRTAB. 800 MG PO (21:33)
[2021-03-03] MEDS: metroNIDAZOLE/NS 500 MG/100 ML PIGGYBACK 100 MG IV (21:34)
[2021-03-03] MEDS: Dextrose 5 % and 0.9 % NaCl 1,000 ML 80 ML IVCONT (22:51)
[2021-03-03 23:28] VITALS: BP 101/58; PULSE 75; RESP 20; TEMP 36.7; O2SAT 97
[2021-03-04] MEDS: Morphine Sulfate 2 MG/ML CARTRIDGE IVPUSH ×4 (01:24→22:16)
[2021-03-04 02:46] LABS: Leukocytes Stool Qualitative NEGATIVE (NEGATIVE)
[2021-03-04 03:40] VITALS: BP 145/97; PULSE 84; RESP 20; TEMP 36.3; O2SAT 97
[2021-03-04 04:41] LABS: CDIFF Ag Negative (Negative); CDIFF Internal ctrl Dots and bkg OK (V); CDiff Toxin Negative (Negative)
[2021-03-04] MEDS: Omeprazole 20 MG CAPSULE.DR PO (05:20)
[2021-03-04] MEDS: metroNIDAZOLE/NS 500 MG/100 ML PIGGYBACK 100 MG IV ×3 (05:20→21:06)
[2021-03-04] MEDS: Heparin Sodium,Porcine 5,000 UNIT/ML VIAL 5000 UNIT SUBCUT ×2 (05:21→17:01)
[2021-03-04 06:02] LABS: MANUAL DIFF FLAG NO
[2021-03-04 06:08] LABS: Basophils Percent Auto 0.2 % (0-2); Eosinophils Absolute Auto 0.1 X10*3/uL (0.0-0.4); Eosinophils Percent Auto 2.5 % (0-4); Hematocrit 30.9 % (42-52); Hemoglobin 9.5 g/dl (14.0-18.0); Imm Gran Abs Auto 0.03 X10*3/uL (0.00-0.03); Imm Gran Pct Auto 0.6 % (0.0-0.4); Lymphocytes Absolute Auto 0.8 X10*3/uL (1.2-4.9); Mean Corpuscular HGB Conc 30.7 g/dl (31.0-36.0); Mean Corpuscular Hemoglobin 27.9 pg (27.0-33.0); Mean Corpuscular Volume 90.6 fL (80-98); Mean Platelet Volume 9.3 fL (9.4-12.4); Monocytes Absolute Auto 0.7 X10*3/uL (0.1-1.2); Monocytes Percent Auto 14.6 % (2-11); Neutrophils Absolute Auto 3.1 X10*3/uL (2.0-8.3); Neutrophils Percent Auto 65.1 % (45-73); Platelet Count 109 X10*3/uL (160-400); Red Blood Count 3.41 X10*6/uL (4.60-5.80); Red Cell Distribution Width 19.1 % (11.0-16.0); White Blood Count 4.8 X10*3/uL (4.8-10.8)
[2021-03-04 06:34] LABS: Anion Gap 14 (12-20); Blood Urea Nitrogen 32 mg/dL (9-16); Carbon Dioxide 23 mmol/L (22-29); Chloride 109 mmol/L (96-108); Estimated Glomerular Filt Rate 33; Glucose Random 85 mg/dL (60-115); Potassium 3.9 mmol/L (3.3-5.1); Sodium 142 mmol/L (135-145)
--- NOTE | 2021-03-04 07:35 | P.CDIC_ITS ---
CDI Concurrent Query Service Date: 03/04/21 Documentation Clarification: Please clarify if you are treating a proba ble/suspected/likely or confirmed: CKD, please specify stage, (1, 2, 3a, 3b, 4, 5) ESRD Provider Response: CKD Stage 3 PLEASE DO NOT DELETE/MODIFY EXISTING CONTENT Additional information is needed in order to code to the highest accuracy and appropriate Severity of Illness (SOI). Please clarify the information noted below in your progress notes and discharge summary. Risk Factors/Clinical Indicators/Treatments 56 year old male admitted with diarrhea for one week and weakness PMH: Crohns Disease with colectomy and colostomy reversal, CKD, Hypertension BUN 40 Creatinine 2.82 Per H&P Impression: Acute Ulcerative Colitis, CITLALY on CKD CDS: Kaci Gutierres RN Contact Number: [phone] Please Review the information above and exercise your independent professional judgment in responding to the query. If you concur, pleas document in the PROGRESS NOTES and DISCHARGE SUMMARY. If you do not agree with the query, please document in the query above. THIS QUERY IS PART OF THE PERMANENT MEDICAL RECORD
[2021-03-04 07:52] VITALS: BP 155/91; PULSE 83; RESP 19; TEMP 37.3; O2SAT 97
[2021-03-04] MEDS: 0.9 % Sodium Chloride Flush 3 ML SYRINGE IVFLUSH ×2 (07:55→16:26)
[2021-03-04] MEDS: Gabapentin 100 MG CAPSULE PO ×3 (07:55→21:01)
[2021-03-04] MEDS: Mesalamine 400 MG CAP.DRTAB. 800 MG PO ×3 (07:55→21:00)
[2021-03-04 08:07] LABS: Glucose, Whole Blood 86 mg/dL (60-115)
[2021-03-04] MEDS: Ketotifen Fumarate 0.025% Oph 5 ML DRPBTL 1 DROP EYE-RIGHT (11:11)
--- NOTE | 2021-03-04 11:19 | P.PNIM_ITS ---
Subjective Subjective Date of Service: 03/05/21 Interval History: Seen in f/u for colitis, citlaly/ckd. He has back pain that he attributes to covid vac[place]. Abdominal pain is better Review of Systems Gen: no fever Resp: no sob, no cough CV: no chest, no GEORGE, no leg edema GI: No n/v, no abd pain Neuro: No confusion Physical Exam Vital Signs: Vital Signs: Last Vital Signs Temp 99.2 F 03/04/21 07:52 Pulse 83 03/04/21 07:52 Resp 19 03/04/21 07:52 BP 155/91 H 03/04/21 07:52 Pulse Ox 97 03/04/21 07:52 Body Mass Index 30.2 General: AO X 3, no acute distress Resp: CTA bilateral CVS: S1,S2,RRR GI: +BS, NT, mild mid abdominal tenderness Skin: No rash Neuro: motor grossly intact Psych: appropriate affect Objective Data Current Medications Generic Name Dose Route Start Last Admin Trade Name Freq PRN Reason Stop Dose Admin Gabapentin 100 mg 03/03/21 21:00 03/04/21 07:55 Gabapentin 100 Mg Capsule PO 100 mg TID MELVI Administration Heparin Sodium (Porcine) 5,000 unit 03/03/21 18:15 03/04/21 05:21 Heparin Sodium,Porcine 5,000 Unit/Ml Vial SUBCUT 5,000 unit Q12H MELVI Administration Ceftriaxone Sodium 1 gm/ 50 mls @ 100 mls/hr 03/04/21 15:00 Sodium Chloride IV Q24H MELVI Metronidazole 500 mg in 100 mls @ 100 mls/hr 03/03/21 22:00 03/04/21 06:26 Flagyl IV Infused Q8H MELVI Infusion Dextrose/Sodium Chloride 1,000 mls @ 80 mls/hr 03/03/21 17:00 03/04/21 07:54 D5ns IVCONT Not Given .[id number] MELVI Ketotifen Fumarate 1 drop 03/04/21 09:00 03/04/21 11:11 Ketotifen Fumarate 0.025% Oph 5 Ml Drpbtl EYE-RIGHT 1 drop DAILY MELVI Administration Mesalamine 800 mg 03/03/21 21:00 03/04/21 07:55 Mesalamine 400 Mg Cap.Drtab. PO 800 mg TID MELVI Administration Morphine Sulfate 2 mg 03/03/21 16:53 03/04/21 08:00 Morphine Sulfate 2 Mg/Ml Cartridge IVPUSH 2 mg Q4H PRN Administration Pain, Moderate (Pain Scale 4-6 Omeprazole 20 mg 03/04/21 06:30 03/04/21 05:20 Omeprazole 20 Mg Capsule. PO 20 mg DAILY@0630 MELVI Administration Ondansetron HCl 4 mg 03/03/21 16:50 Ondansetron Hcl 4 Mg/2 Ml Vial IVPUSH Q8H PRN Nausea and Vomiting Pharmacy Consult 1 each 03/03/21 16:45 Consult Rx Perform Med Rec MISCELLANE ONCE PRN Consult order Sodium Chloride 3 ml 03/04/21 00:00 03/04/21 07:55 0.9 % Sodium Chloride Flush 3 Ml Syringe IVFLUSH 3 ml QSHIFT MELVI Administration Zolpidem Tartrate 10 mg 03/03/21 21:00 03/03/21 21:33 Zolpidem Tartrate 5 Mg Tablet PO 10 mg BEDTIME MELVI Administration Labs CBC & Chem 7: 03/04/21 05:40 03/04/21 05:40 Assessment and Plan (1) Ulcerative colitis: Status: Acute (2) Acute kidney injury superimposed on CKD: Status: Acute (3) Acute dehydration: Status: Acute (4) Colitis: Status: Acute Assessment and Plan: 56 year old man admitted with abdominal pain found to have colitis. Patient has had history of Crohn's with colectomy more than 9 years ago at [facility]. Colitis. stool studies penind contineu ceftriaxone and falgy gi eval CITLALY on CKD 3 . d/t pre renal from diaarrhe, Cr is presently within baseline Normocytic anemia /thrombocytopenia. Stool occult negative. Hypertension. Restart Metoporolol Hyperlipidemia Statin DVT prophylaxis with heparin
[2021-03-04 11:56] VITALS: BP 149/91; PULSE 75; RESP 17; TEMP 37.3; O2SAT 97
[2021-03-04] MEDS: Dextrose 5 % and 0.9 % NaCl 1,000 ML 80 ML IVCONT (12:13)
--- NOTE | 2021-03-04 12:45 | MHC.CM.PN ---
CM MET WITH PT WHO REPORTS HE LIVES ALONE AND IS INDEPENDENT WITH CARE AND MOBILITY. PT DENIES THE USE OF DME OR HOME SERVICES. PT COMPLETED A HCP TODAY NAMING HIS S/O, LEONCIO MOREL ([phone]) HIS AGENT. PT CONFIRMS HIS PCP IS AROLDO MAXWELL. CURRENT DC PLAN IS HOME WITH NO SERVICES PT TO SELF ARRANGE TRANSPORT
--- NOTE | 2021-03-04 13:46 | PM.GICN ---
History of Present Illness Data of Consult Service Date: 03/04/21 Requesting physician: [facility] Primary Care Provider: Maikel Montenegro NP [facility] Reason for consult: colitis 56 yr old m with hx of opioid use, HTN, and crohns disease with hx of total colectomy with stoma then reversal and anastomosis with rectum who I am asked to see for evaluation of diarrhea. He has been having numerous diarrheal stools for the last 1-2 weeks associated with RLQ discomfort and cramps. Blood noted on wiping, but not in the toilet. He denies any recent travel or improperly cooked foods, no sick contacts or recent antibiotics. He denied chest pain, shortness of breath, nausea, vomiting. He is on asacol for his crohns disease but unsure if it helps him or not. He was given Rocephin, Flagyl, IV fluid and pain medicine and today says that he has not had further diarrhea. He is worried about making sure he gets his daily methadone. Abdominal CT reported by radiologist as showing colitis to the remaining sigmoid colon without any abscess or fluid collection. His last colonoscopy was 01/2020 and he appeared to have a pouch without any sigmoid colona s noted in the CT scan, the bx of small bowel were normal, as were the pouch. There did appear to be inflammation around ileo anal area but bx were ok. I gave him cipro at the time and anti fungal cream due to maceration of anal skin due to diarrhea. Review of Systems Review of Systems: Gen: no fever Resp: no sob, no cough CV: no chest, no GEORGE, no leg edema GI: No n/v, no abd pain Neuro: No confusion Constitutional: Constitutional: Reports as per HPI [facility] Past Medical History Medical History (Updated 03/04/21 @ 16:11 by Margot Silva MD) CKD (chronic kidney disease) Colitis HLD (hyperlipidemia) HTN (hypertension) Family History Family History (Updated 03/03/21 @ 17:00 by Rebecca Houston NP) Mother Stroke Diabetes mellitus HTN (hypertension), benign Hyperlipidemia Brother Diabetes mellitus Surgical History Surgical History H/O cervical spine surgery H/O total colectomy History of colostomy reversal Social History Social History Household Members: None Housing: House Do you presently have visiting nurse or other home services: No Alcohol intake: never Smoking Status: Never smoker Use of substances other than those prescribed or required for medical reasons: Yes Substance Use Type: Heroin Substance Use Frequency: Daily Last Used Substance: Days (ago) Last Used Substance Other:: 7 days Currently Displaying Signs/Symptoms of Drug Intoxication Withdrawal: No Any prior treatment program specific to substance use: Yes Do you feel safe in your current relationship?: No Current Relationship Is there a partner from a previous relationship who is making you feel unsafe now?: No Are you made to feel afraid or neglected: No Advance Directives: No Advance Directives Information Provided: No Do you have thoughts of harming others: None Do you have a plan to hurt others: No Plan Recently lost weight without trying: No service: No Current occupational status: unemployed Meds Allergies Allergy/AdvReac Type Severity Reaction Status Date / Time Iodinated Contrast Media Allergy Intermediate HIVES Unverified 07/30/20 15:19 [IV CONTRAST] prednisone [PREDNISONE] Allergy Mild RASH Unverified 07/30/20 15:19 prednisolone Allergy Unknown rash Verified 06/23/20 00:00 Active Medications: Current Medications Generic Name Dose Route Start Last Admin Trade Name Evie PRN Reason Stop Dose Admin Gabapentin 100 mg 03/03/21 21:00 03/04/21 07:55 Gabapentin 100 Mg Capsule PO 100 mg TID MELVI Administration Heparin Sodium (Porcine) 5,000 unit 03/03/21 18:15 03/04/21 05:21 Heparin Sodium,Porcine 5,000 Unit/Ml Vial SUBCUT 5,000 unit Q12H MELVI Administration Ceftriaxone Sodium 1 gm/ 50 mls @ 100 mls/hr 03/04/21 15:00 Sodium Chloride IV Q24H MELVI Metronidazole 500 mg in 100 mls @ 100 mls/hr 03/03/21 22:00 03/04/21 06:26 Flagyl IV Infused Q8H MELVI Infusion Dextrose/Sodium Chloride 1,000 mls @ 80 mls/hr 03/03/21 17:00 03/04/21 12:13 D5ns IVCONT 80 mls/hr .[id number] MELVI Administration Ketotifen Fumarate 1 drop 03/04/21 09:00 03/04/21 11:11 Ketotifen Fumarate 0.025% Oph 5 Ml Drpbtl EYE-RIGHT 1 drop DAILY MELVI Administration Mesalamine 800 mg 03/03/21 21:00 03/04/21 07:55 Mesalamine 400 Mg Cap.Drtab. PO 800 mg TID MELVI Administration Morphine Sulfate 2 mg 03/03/21 16:53 03/04/21 12:09 Morphine Sulfate 2 Mg/Ml Cartridge IVPUSH 2 mg Q4H PRN Administration Pain, Moderate (Pain Scale 4-6 Omeprazole 20 mg 03/04/21 06:30 03/04/21 05:20 Omeprazole 20 Mg Capsule.Dr PO 20 mg DAILY@0630 MELVI Administration Ondansetron HCl 4 mg 03/03/21 16:50 Ondansetron Hcl 4 Mg/2 Ml Vial IVPUSH Q8H PRN Nausea and Vomiting Pharmacy Consult 1 each 03/03/21 16:45 Consult Rx Perform Med Rec MISCELLANE ONCE PRN Consult order Sodium Chloride 3 ml 03/04/21 00:00 03/04/21 07:55 0.9 % Sodium Chloride Flush 3 Ml Syringe IVFLUSH 3 ml QSHIFT MELVI Administration Zolpidem Tartrate 10 mg 03/03/21 21:00 03/03/21 21:33 Zolpidem Tartrate 5 Mg Tablet PO 10 mg BEDTIME MELVI Administration Home Medications Medication Instructions Recorded Confirmed Last Taken Type felodipine 1 tab PO DAILY 03/03/21 03/03/21 03/03/21 History ferrous sulfate 1 tab PO DAILY 03/03/21 03/03/21 03/03/21 History gabapentin 1 cap PO TID 03/03/21 03/03/21 03/03/21 History ketotifen fumarate 1 drp OPHTHALMIC-RIGHT DAILY 03/03/21 03/03/21 03/03/21 History lidocaine 1 patch TOPICAL DAILY 03/03/21 03/03/21 03/02/21 History mesalamine 2 cap PO TID 03/03/21 03/03/21 03/03/21 History metoprolol tartrate 1 tab PO BID 03/03/21 03/03/21 03/03/21 History pantoprazole 1 tab PO DAILY 03/03/21 03/03/21 03/03/21 History rosuvastatin 1 tab PO BEDTIME 03/03/21 03/03/21 03/02/21 History zolpidem 1 tab PO BEDTIME 03/03/21 03/03/21 03/02/21 History methadone [Methadone Intensol] 50 mg PO DAILY 03/04/21 03/04/21 Unknown History Physical Exam Vital Signs: Vital Signs: Last Vital Signs Temp 99.1 F 03/04/21 11:56 Pulse 75 03/04/21 11:56 Resp 17 03/04/21 11:56 BP 149/91 H 03/04/21 11:56 Pulse Ox 97 03/04/21 11:56 Body Mass Index 30.2 EXAM: GENERAL: The patient is well developed and nontoxic. VITAL SIGNS:see workflow HEENT: Nonicteric sclerae, PERRLA, EOMI. Oropharynx clear. Moist mucous membranes. Conjunctivae appear well perfused. No thyroid mass. CHEST: Chest wall is nontender. HEART: Regular rate and rhythm without murmurs. LUNGS: Clear to auscultation bilaterally. ABDOMEN: Soft, positive bowel sounds, nontender, no organomegaly.no flank tenderness SKIN: No rash, no excessive bruising, petechiae, or purpura. NEUROLOGIC: Cranial nerves II-XII intact without motor/sensory deficit. Psych-normal affect Extrem: General: Yes full ROM Results Labs CBC & Chem 7: 03/04/21 05:40 03/04/21 05:40 Labs: Short CBC 03/04/21 Range/Units 05:40 WBC 4.8 (4.8-10.8) X10*3/uL Hgb 9.5 L (14.0-18.0) g/dl Hct 30.9 L (42-52) % Plt Count 109 L (160-400) X10*3/uL BMP 03/04/21 05:40 Sodium 142 Potassium 3.9 Chloride 109 H Carbon Dioxide 23 BUN 32 H Creatinine 2.11 H Calcium 8.0 L Liver Function 03/03/21 Range/Units 12:50 Total Bilirubin 0.5 (0.0-1.0) mg/dL Direct Bilirubin 0.2 (0.0-0.5) mg/dL AST 39 H (5-37) U/L ALT 24 (0-40) U/L Alkaline Phosphatase 68 (39-117) U/L Albumin 3.7 (3.5-5.0) g/dL c diff negative CT personally reviewed, thickened distal intestine, atherosclerosis in aorta, hepatomeagly Assessment and Plan (1) Crohn's disease of both small and large intestine: Status: Acute 1/ Recent worsening diarrhea sx with abdominal cramps, c diff negative, could be infectious enteritis or recurrence of crohns however he reports improvement since being on ABX. 2/ Chronic anemia, could be nutritional due to malabsorption or due to chronic disease PLAN: 1/ Cont with ABX as doing, if remains in remission then would complete 7 d course of current ab rx. If sx recur or worsen then can add prednisone 40 mg with short taper and consider pouchoscopy/ileoscopy. 2/ check iron studies and b12/folic acid. 3/ check crp and trend
[2021-03-04 15:18] VITALS: BP 178/95; PULSE 69; RESP 16; TEMP 36.9; O2SAT 100
[2021-03-04] MEDS: cefTRIAXone sodium 1 GM in 0.9 % Sodium Chloride 50 ML IV (16:26)
[2021-03-04 18:17] LABS: Iron 29 mcg/dL (45-160); Percent Iron Saturation 8 % (15-50); Total Iron Binding Capacity 343 mcg/dL (228-428); Unsaturated Iron Binding 314 ug/dL
[2021-03-04 18:36] LABS: Ferritin 92 ng/mL (20-250)
[2021-03-04 18:50] LABS: Folate 13.7 ng/mL (> or = 4.0); Vitamin B12 195 pg/mL (200-900)
[2021-03-04 18:52] VITALS: BP 156/86; PULSE 77; RESP 16; TEMP 37.1; O2SAT 99
[2021-03-04] MEDS: Zolpidem Tartrate 5 MG TABLET 10 MG PO (21:01)
[2021-03-04] MEDS: Cyanocobalamin (Vitamin B-12) 1,000 MCG/ML VIAL 1000 MCG IM (21:21)
[2021-03-04 23:10] VITALS: BP 154/87; PULSE 81; RESP 20; TEMP 36.4; O2SAT 99
[2021-03-05 03:57] VITALS: BP 145/81; PULSE 76; RESP 20; TEMP 36.3; O2SAT 98
[2021-03-05] MEDS: Dextrose 5 % and 0.9 % NaCl 1,000 ML 80 ML IVCONT (04:36)
[2021-03-05] MEDS: Heparin Sodium,Porcine 5,000 UNIT/ML VIAL 5000 UNIT SUBCUT (05:57)
[2021-03-05] MEDS: Omeprazole 20 MG CAPSULE.DR PO (05:58)
[2021-03-05] MEDS: metroNIDAZOLE/NS 500 MG/100 ML PIGGYBACK 100 MG IV (05:59)
[2021-03-05 07:32] VITALS: BP 174/81; PULSE 68; RESP 20; TEMP 36.7; O2SAT 98
[2021-03-05] MEDS: Mesalamine 400 MG CAP.DRTAB. 800 MG PO ×2 (07:41→14:15)
[2021-03-05] MEDS: Gabapentin 100 MG CAPSULE PO ×2 (07:41→14:15)
[2021-03-05] MEDS: Ketotifen Fumarate 0.025% Oph 5 ML DRPBTL 1 DROP EYE-RIGHT (08:25)
--- NOTE | 2021-03-05 10:22 | P.DS_ITS ---
DS: Providers Provider Date of Service: 03/16/21 Date of admission: 03/03/21 16:50 Primary care physician: Maikel Montenegro NP Consults: 03/03/21 15:58 Consult to Gastroenterology Stat Consulting Provider: J Luis Godwin Reason for consultation: hx crohns s/p colectomy w/ diarrhea and sigmoid colitis, [place] Has provider been notified: Yes 03/03/21 18:10 Consult to Gastroenterology Routine Consulting Provider: J Luis Godwin Reason for consultation: colitis Has provider been notified: No 03/04/21 14:43 Addiction Medicine Routine Consulting Provider: Dariela Mata Reason for consultation: we can get hold of methadone clinic to verify DS: Diagnosis Discharge Diagnosis (1) Ulcerative colitis: Status: Acute (2) Acute kidney injury superimposed on CKD: Status: Acute (3) Acute dehydration: Status: Acute (4) Colitis: Status: Acute DS: Medications Discharge Medications Home Medications: Home Medications Medication Instructions Recorded Confirmed felodipine 1 tab PO DAILY 03/03/21 03/03/21 ferrous sulfate 1 tab PO DAILY 03/03/21 03/03/21 gabapentin 1 cap PO TID 03/03/21 03/03/21 ketotifen fumarate 1 drp OPHTHALMIC-RIGHT DAILY 03/03/21 03/03/21 lidocaine 1 patch TOPICAL DAILY 03/03/21 03/03/21 mesalamine 2 cap PO TID 03/03/21 03/03/21 metoprolol tartrate 1 tab PO BID 03/03/21 03/03/21 pantoprazole 1 tab PO DAILY 03/03/21 03/03/21 rosuvastatin 1 tab PO BEDTIME 03/03/21 03/03/21 zolpidem 1 tab PO BEDTIME 03/03/21 03/03/21 methadone [Methadone Intensol] 50 mg PO DAILY 03/04/21 03/04/21 Previous Rx's Medication Instructions Recorded acetaminophen 650 mg PO Q4H PRN #20 cap 01/20/21 DS: Summary Hospital Course Hospital Course: 56-year-old man with history of Crohn's disease presents with complaints of diarrhea and abdominal pain over the last week. He denies any recent travel or improperly cooked foods. He has a history of colectomy approximately 9 years ago he reports that he has not had a Crohn's exacerbation in many years. He is on mesalamine chronically. He reports that he started having abdominal pain and cramping and watery stools with gas several times a day and he has been having trouble eating and sleeping. He denied chest pain, shortness of breath, nausea, vomiting. He did report when he has diarrhea he notices some blood on the toilet paper but none in the toilet. abdominal CT shows colitis to the remaining sigmoid colon without any abscess or fluid collection. Vital signs are stable. Creatinine is elevated 2.82. He was given Rocephin, Flagyl, IV fluid and pain medicine. He will be admitted for further management and treatment Hospital course: Acute colitis in history setting of history of ulcerative colitis--He has reponded well to IV antibiotics without steroid. He has been on Flagyl and Ceftiaxone and pain has significantly improved. He has no fever and last WBC was notmal. He has been evaluated by Dr. Silva and at this point will hold of steroid, transition to oral Ceftin and Flayl for total of 7 days and to follow up with Dr. Silva of note has low Iron level and low B12 level likely from malapsorption and will get iron and Vitamin 12 replacement upon discharge. Time Spent with Patient Time attestation: Total time spent providing and/or coordinating discharge services: Discharge coordination time: Greater than 30 minutes Physical Exam Vital Signs: Vital Signs: Last Vital Signs Temp 98.0 F 03/05/21 07:32 Pulse 68 03/05/21 07:32 Resp 20 03/05/21 07:32 BP 174/81 H 03/05/21 07:32 Pulse Ox 98 03/05/21 07:32 Body Mass Index 30.2 General: AO X 3, no acute distress Resp: CTA bilateral CVS: S1,S2,RRR GI: +BS, NT, no distention Skin: No rash Neuro: motor grossly intact Psych: appropriate affect DS: Data Data Completed and Pending Labs on day of discharge: Laboratory Results - last 24 hr 03/04/21 03/04/21 17:41 17:41 Iron 29 L TIBC 343 % Saturation 8 L Unsat Iron Binding 314 Ferritin 92 Vitamin B12 195 L Folate 13.7 Preliminary micro results at discharge 03/04/21 01:29 Stool Culture - Preliminary Stool Normal so far. 03/03/21 18:34 Blood Culture - Preliminary Blood - Venous No growth after 24 hours. 03/03/21 18:29 Blood Culture - Preliminary Blood - Venous No growth after 24 hours. Discharge Plan Discharge Anticipated Discharge Date/Time: 03/05/21 10:26 Patient Disposition: Home, Self-Care Discharge Diagnosis: acute colitis Referrals: Maikel Montenegro, DENTAL SCHEDULING COORDINATOR [Primary Care Provider] - 1 Week Discharge Medications: New metronidazole [Flagyl] 500 mg tablet 500 mg PO Q8H Qty: 15 RF: 0 cefuroxime axetil 500 mg tablet 500 mg PO BID 7 Days Qty: 10 RF: 0 Continued acetaminophen 325 mg capsule 650 mg PO Q4H PRN (Reason: pain) Qty: 20 RF: 0 ketotifen fumarate 0.025 % (0.035 %) drops 1 drp ophthalmic-Right DAILY RF: 0 felodipine 5 mg tablet extended release 24 hr 1 tab PO DAILY RF: 0 pantoprazole 40 mg tablet,delayed release (DR/EC) 1 tab PO DAILY RF: 0 ferrous sulfate 325 mg (65 mg iron) tablet 1 tab PO DAILY RF: 0 lidocaine 5 % adhesive patch,medicated 1 patch topical DAILY RF: 0 metoprolol tartrate 50 mg tablet 1 tab PO BID RF: 0 gabapentin 100 mg capsule 1 cap PO TID RF: 0 zolpidem 10 mg tablet 1 tab PO BEDTIME RF: 0 mesalamine 400 mg capsule (with del rel tablets) 2 cap PO TID RF: 0 rosuvastatin 40 mg tablet 1 tab PO BEDTIME RF: 0 methadone [Methadone Intensol] 10 mg/mL Concentrate 50 mg PO DAILY RF: 0 Discharge Orders: Discharge Order (Routine); Ordered 03/05/21 Ordered By: Herb Laird Diet: advance to usual diet Activity on Discharge: As tolerated Stand Alone Forms: Patient Portal Discharge page Care Plan Goals: control of colitis Health Concerns: colitis Plan of Treatment: Take ceftin and flagyl for colitis Take Iron for iron deficiency and Vitamin B12 for vitamin 12 deficiency, follow up with Dr. Silva Assessment: Ulcerative colitis that is better with antibiotics Discharge Date/Time: 03/05/21 14:30
[2021-03-05 11:33] VITALS: BP 154/80; PULSE 74; RESP 18; TEMP 37.2; O2SAT 96
--- NOTE | 2021-03-05 14:18 | MHC.CM.PN ---
Pt will DC home today with no services.
[2021-03-06 13:51] LABS: CRP High Sensitivity >10.0 mg/L
[2021-03-07 11:36] LABS: Red Blood Cell Folate 920 ng/mL RBC (>280)
[2021-03-08 23:41] LABS: Zinc 72 mcg/dL (60-130)
== END 2021-03-05 14:30 | disposition home or self-care (01) | DRG 245 ==
LOC: HO.ED 17:05 → HO.S3 18:37
PROVIDERS: Internal Medicine Gastroenterology; Nurse Practitioner Acute Care; Physician Assistant; Admitting Provider Internal Medicine; Emergency Provider Emergency Medicine; PCP Nurse Practitioner Family; Visit Provider Internal Medicine
DX: K50.80 Crohn's disease of both small and large intestine without complications (principal); D69.6 Thrombocytopenia, unspecified; N17.9 Acute kidney failure, unspecified; F11.20 Opioid dependence, uncomplicated; N18.30 Chronic kidney disease, stage 3 unspecified; E86.0 Dehydration; E87.6 Hypokalemia; E78.5 Hyperlipidemia, unspecified; I12.9 Hypertensive chronic kidney disease with stage 1 through stage 4 chronic kidney disease, or unspecified chronic kidney disease; D63.1 Anemia in chronic kidney disease; Z79.899 Other long term (current) drug therapy
CPT/HCPCS: 36415; 74176; 80048; 80076; 82607; 82728; 82746; 82747; 82947; 83540; 83605; 84630; 85025; 86141; 87040; 87045; 87046; 87324; 87449; 87635; 89055; 96365; 96368; 96375; 99218; 99285; J0696; J2270; J3010

== ENCOUNTER 2021-05-01 20:30 | Emergency (ER) | payer MEDICAID, SELFPAY ==
--- NOTE | ~2021-05-01 | CT_ITS ---
EXAMINATION: CT ABDOMEN AND PELVIS WITHOUT CONTRAST CLINICAL INFORMATION: Diffuse abdominal pain. History of Crohn's disease. COMPARISON: 03/03/2021 TECHNIQUE: Multidetector volumetric imaging was performed from the superior aspect of the liver through the pubic symphysis. Sagittal and coronal reformatted images were obtained on the technologist's workstation. This CT examination was performed using dose optimization techniques as appropriate, variously including the following: *Automated exposure control *Adjustment of mA and/or kV according to patient size (this includes techniques or standardized protocols for targeted exams where dose is matched to indication/reason for exam; i.e. extremities or head) *Use of iterative reconstruction technique DLP: 912 mGy-cm FINDINGS: LUNG BASES: c mild hepatomegaly. Triple vessel coronary calcifications. LIVER, GALLBLADDER, AND BILIARY TREE: Liver normal in size, contour and morphology. No focal liver lesions. No intra or extrahepatic biliary dilatation. Gallbladder unremarkable. PANCREAS: Unremarkable. SPLEEN: Calcified granuloma present. Normal size. ADRENAL GLANDS: Unremarkable. KIDNEYS AND URETERS: The kidneys are normal in size, shape, and attenuation. No hydronephrosis, hydroureter, or calculi seen. No perinephric stranding. BLADDER: Unremarkable. GASTROINTESTINAL TRACT: Total colectomy with ileoanal anastomosis. Enteroenteric anastomosis is present within the right mid abdomen. No bowel obstruction. Similar appearance of wall thickening and soft tissue stranding in the region of the ileoanal anastomosis within the deep pelvis. Soft tissue stranding extends posteriorly to the sacrum, stable in appearance from prior. Stomach is unremarkable. ABDOMINAL WALL: Status post mesh ventral herniorrhaphy. No hernias. LYMPH NODES: Normal. VASCULAR: Aorta is atherosclerotic but normal caliber. PELVIC VISCERA: Unremarkable. OSSEOUS STRUCTURES: No acute or suspicious osseous abnormalities. Severe discogenic degenerative disease at L5-S1. CT/CT abdomen pelvis wo con IMPRESSION: Total colectomy with ileoanal anastomosis. There is persistent soft tissue prominence and stranding at the ileoanal anastomosis posteriorly extending to the sacrum which may represent scar tissue or chronic ongoing inflammation. No additional potential sources of inflammation evident within the abdomen or pelvis.
[2021-05-01 20:51] VITALS: BP 159/91; PULSE 64; RESP 16; TEMP 36.9; O2SAT 97; BMI 31.0
--- NOTE | 2021-05-01 22:37 | ED.ABDPAIN ---
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 This is not been associated with any fever, chills, nausea, vomiting, urinary pain/burning/frequency. Patient does have a significant history of Crohn's but does not recall the medication and is status post complete colectomy. Related Data Home Medications Medication Instructions Recorded Confirmed felodipine 1 tab PO DAILY 03/03/21 03/03/21 ferrous sulfate 1 tab PO DAILY 03/03/21 03/03/21 gabapentin 1 cap PO TID 03/03/21 03/03/21 ketotifen fumarate 1 drp OPHTHALMIC-RIGHT DAILY 03/03/21 03/03/21 lidocaine 1 patch TOPICAL DAILY 03/03/21 03/03/21 mesalamine 2 cap PO TID 03/03/21 03/03/21 metoprolol tartrate 1 tab PO BID 03/03/21 03/03/21 pantoprazole 1 tab PO DAILY 03/03/21 03/03/21 rosuvastatin 1 tab PO BEDTIME 03/03/21 03/03/21 zolpidem 1 tab PO BEDTIME 03/03/21 03/03/21 methadone [Methadone Intensol] 50 mg PO DAILY 03/04/21 03/04/21 Previous Rx's Medication Instructions Recorded acetaminophen 650 mg PO Q4H PRN #20 cap 01/20/21 cefuroxime axetil 500 mg PO BID 7 Days #10 tab 03/05/21 metronidazole [Flagyl] 500 mg PO Q8H #15 tab 03/05/21 Allergies Allergy/AdvReac Type Severity Reaction Status Date / Time Iodinated Contrast Media Allergy Intermediate HIVES Unverified 07/30/20 15:19 [IV CONTRAST] prednisone [PREDNISONE] Allergy Mild RASH Unverified 07/30/20 15:19 prednisolone Allergy Unknown rash Verified 06/23/20 00:00 Review of Systems Review of Systems Pertinent positives and negatives as stated in HPI 10 point review of systems otherwise negative. Physical Exam Vital Signs: Vital Signs: Last Vital Signs Temp 98.4 F 05/01/21 20:51 Pulse 70 05/02/21 00:25 Resp 20 05/02/21 00:25 BP 155/86 H 05/02/21 00:25 Pulse Ox 97 05/01/21 20:51 Body Mass Index 31.0 VITAL SIGNS: Reviewed. GENERAL: Well developed, well nourished, in no acute distress. HEAD: Normocephalic/atraumatic EYES: PERRLA, EOMI OROPHARYNX: no oral lesions noted, posterior pharynx clear NECK: Supple, no adenopathy LUNGS: Normal breath sounds. No adventitious sounds or accessory muscle use. SpO2<97> CARDIOVASCULAR: Regular rate and rhythm without noted murmurs, no JVD or lower extremity edema. ABDOMEN: Soft, non-tender, non-distended with bowel sounds. NEUROLOGIC: Alert and oriented x 4. Course Course Course Narrative: 56-year-old male with history and clinical presentation concerning for possible Crohn's flare although he is afebrile, so this is less likely and no evidence to suggest SBO, however there is a likelihood of possible infectious/C diff due to recent hospitalization with antibiotic use. Review of all investigations without acute findings. Diarrhea is likely secondary to patient's antibiotic use but has not resulted in evidence to support C diff. patient is otherwise afebrile, hemodynamically stable, no leukocytosis or left shift. All results were discussed with him at bedside and he was recommended to follow-up on Monday morning with his primary care provider. MDM - Abdominal Pain Lab Data Result diagrams: 05/01/21 22:24 05/01/21 22:24 Labs: Lab Results 05/01/21 05/01/21 05/01/21 Range/Units 22:24 22:24 22:24 WBC 7.0 (4.8-10.8) X10*3/uL RBC 3.74 L (4.60-5.80) X10*6/uL Hgb 10.3 L (14.0-18.0) g/dl Hct 33.2 L (42-52) % MCV 88.8 (80-98) fL MCH 27.5 (27.0-33.0) pg MCHC 31.0 (31.0-36.0) g/dl RDW 16.8 H (11.0-16.0) % Plt Count 205 D (160-400) X10*3/uL MPV 9.5 (9.4-12.4) fL Immature Gran % (Auto) 0.4 (0.0-0.4) % Neut % (Auto) 53.4 (45-73) % Lymph % (Auto) 27.4 (20-40) % [place] % (Auto) 14.5 H (2-11) % Eos % (Auto) 4.0 (0-4) % Baso % (Auto) 0.3 (0-2) % Lymph # (Auto) 1.9 (1.2-4.9) X10*3/uL [place] # (Auto) 1.0 (0.1-1.2) X10*3/uL Eos # (Auto) 0.3 (0.0-0.4) X10*3/uL Baso # (Auto) 0.0 (0.0-0.2) X10*3/uL Abs Immat Gran (auto) 0.03 (0.00-0.03) X10*3/uL Absolute Neuts (auto) 3.7 (2.0-8.3) X10*3/uL Absolute Nucleated RBC 0.000 (0.0-0.012) X10*3/uL Nucleated RBC % (auto) 0.0 (0.0-0.2) /100WBC Sodium 140 (135-145) mmol/L Potassium 4.6 (3.3-5.1) mmol/L Chloride 105 (96-108) mmol/L Carbon Dioxide 24 (22-29) mmol/L Anion Gap 16 (12-20) BUN 18 H (9-16) mg/dL Creatinine 1.93 H (0.5-1.4) mg/dL Estim Creat Clear Calc 48.6 Estimated GFR 36 Random Glucose 96 (60-115) mg/dL Calcium 8.7 D (8.4-10.2) mg/dL Total Bilirubin 0.2 (0.0-1.0) mg/dL AST 25 (5-37) U/L ALT 17 (0-40) U/L Alkaline Phosphatase 73 (39-117) U/L Total Protein 7.4 (6.5-8.0) g/dL Albumin 3.7 (3.5-5.0) g/dL Lipase 65 (8-78) U/L Urine Color YELLOW Urine Appearance CLEAR Urine pH 5.5 (5.0-8.0) Ur Specific [place]ale >= 1.030 H (1.005-1.025) Urine Protein NEG (NEG-TRACE) MG/DL Urine Glucose (UA) NEG (NEG) MG/DL Urine Ketones NEG (NEG) MG/DL Urine Blood NEG (NEG) Urine Nitrite NEG (NEG) Ur Leukocyte Esterase NEG (NEG) Stool Leukocytes, Qual (NEGATIVE) C. difficile Toxin A&B (Negative) C. difficile Antigen (Negative) C. difficile Interpret 05/02/21 05/02/21 Range/Units 01:33 01:33 WBC (4.8-10.8) X10*3/uL RBC (4.60-5.80) X10*6/uL Hgb (14.0-18.0) g/dl Hct (42-52) % MCV (80-98) fL MCH (27.0-33.0) pg MCHC (31.0-36.0) g/dl RDW (11.0-16.0) % Plt Count (160-400) X10*3/uL MPV (9.4-12.4) fL Immature Gran % (Auto) (0.0-0.4) % Neut % (Auto) (45-73) % Lymph % (Auto) (20-40) % [place] % (Auto) (2-11) % Eos % (Auto) (0-4) % Baso % (Auto) (0-2) % Lymph # (Auto) (1.2-4.9) X10*3/uL [place] # (Auto) (0.1-1.2) X10*3/uL Eos # (Auto) (0.0-0.4) X10*3/uL Baso # (Auto) (0.0-0.2) X10*3/uL Abs Immat Gran (auto) (0.00-0.03) X10*3/uL Absolute Neuts (auto) (2.0-8.3) X10*3/uL Absolute Nucleated RBC (0.0-0.012) X10*3/uL Nucleated RBC % (auto) (0.0-0.2) /100WBC Sodium (135-145) mmol/L Potassium (3.3-5.1) mmol/L Chloride (96-108) mmol/L Carbon Dioxide (22-29) mmol/L Anion Gap (12-20) BUN (9-16) mg/dL Creatinine (0.5-1.4) mg/dL Estim Creat Clear Calc Estimated GFR Random Glucose (60-115) mg/dL Calcium (8.4-10.2) mg/dL Total Bilirubin (0.0-1.0) mg/dL AST (5-37) U/L ALT (0-40) U/L Alkaline Phosphatase (39-117) U/L Total Protein (6.5-8.0) g/dL Albumin (3.5-5.0) g/dL Lipase (8-78) U/L Urine Color Urine Appearance Urine pH (5.0-8.0) Ur Specific [place] (1.005-1.025) Urine Protein (NEG-TRACE) MG/DL Urine Glucose (UA) (NEG) MG/DL Urine Ketones (NEG) MG/DL Urine Blood (NEG) Urine Nitrite (NEG) Ur Leukocyte Esterase (NEG) Stool Leukocytes, Qual NEGATIVE (NEGATIVE) C. difficile Toxin A&B Negative (Negative) C. difficile Antigen Negative (Negative) C. difficile Interpret SEE NOTE Discharge Plan Discharge Clinical Impression: Abdominal discomfort Patient Disposition: Home, Self-Care Instructions: Abdominal Pain (ED) Additional Instructions: 1. Reanude todos los medicamentos caseros seg?n lo recetado. 2. Aumente la hidrataci?n de los l?quidos, especialmente con agua. 3. Misael un seguimiento con viramontes proveedor de atenci?n primaria el lunes por la ma?camron para adan reevaluaci?n y manejo ambulatorio. Regrese a la felix de emergencias si tammy s?ntomas empeoran de manera aguda. Prescriptions: No Action acetaminophen 325 mg capsule 650 mg PO Q4H PRN (Reason: pain) Qty: 20 RF: 0 ketotifen fumarate 0.025 % (0.035 %) drops 1 drp ophthalmic-Right DAILY RF: 0 felodipine 5 mg tablet extended release 24 hr 1 tab PO DAILY RF: 0 pantoprazole 40 mg tablet,delayed release (DR/EC) 1 tab PO DAILY RF: 0 ferrous sulfate 325 mg (65 mg iron) tablet 1 tab PO DAILY RF: 0 lidocaine 5 % adhesive patch,medicated 1 patch topical DAILY RF: 0 metoprolol tartrate 50 mg tablet 1 tab PO BID RF: 0 gabapentin 100 mg capsule 1 cap PO TID RF: 0 zolpidem 10 mg tablet 1 tab PO BEDTIME RF: 0 mesalamine 400 mg capsule (with del rel tablets) 2 cap PO TID RF: 0 rosuvastatin 40 mg tablet 1 tab PO BEDTIME RF: 0 methadone [Methadone Intensol] 10 mg/mL Concentrate 50 mg PO DAILY RF: 0 metronidazole [Flagyl] 500 mg tablet 500 mg PO Q8H Qty: 15 RF: 0 cefuroxime axetil 500 mg tablet 500 mg PO BID 7 Days Qty: 10 RF: 0 Referrals: [facility] [Primary Care Provider] - 2 days Print Language: English [facility] Past Medical History Source: nursing notes reviewed Medical History CKD (chronic kidney disease) Colitis Crohn's disease of both small and large intestine HLD (hyperlipidemia) HTN (hypertension) Surgical History H/O cervical spine surgery H/O total colectomy History of colostomy reversal Family History Family History Mother Stroke Diabetes mellitus HTN (hypertension), benign Hyperlipidemia Brother Diabetes mellitus Social History Social History Household Members: None Housing: House Do you presently have visiting nurse or other home services: No Alcohol intake: never Substance Use Type: Heroin Advance Directives: No Advance Directives Information Provided: Yes service: No Current occupational status: unemployed
[2021-05-01 22:43] LABS: Basophils Percent Auto 0.3 % (0-2); Eosinophils Absolute Auto 0.3 X10*3/uL (0.0-0.4); Hematocrit 33.2 % (42-52); Hemoglobin 10.3 g/dl (14.0-18.0); Imm Gran Abs Auto 0.03 X10*3/uL (0.00-0.03); Imm Gran Pct Auto 0.4 % (0.0-0.4); Lymphocytes Absolute Auto 1.9 X10*3/uL (1.2-4.9); Lymphocytes Percent Auto 27.4 % (20-40); MANUAL DIFF FLAG NO; Mean Corpuscular Hemoglobin 27.5 pg (27.0-33.0); Mean Corpuscular Volume 88.8 fL (80-98); Mean Platelet Volume 9.5 fL (9.4-12.4); Monocytes Percent Auto 14.5 % (2-11); Neutrophils Absolute Auto 3.7 X10*3/uL (2.0-8.3); Neutrophils Percent Auto 53.4 % (45-73); Platelet Count 205 X10*3/uL (160-400); Red Blood Count 3.74 X10*6/uL (4.60-5.80); Red Cell Distribution Width 16.8 % (11.0-16.0)
[2021-05-01 23:09] LABS: Alanine Aminotransferase 17 U/L (0-40); Albumin Level 3.7 g/dL (3.5-5.0); Alkaline Phosphatase 73 U/L (39-117); Anion Gap 16 (12-20); Aspartate Amino Transferase 25 U/L (5-37); Bilirubin Total 0.2 mg/dL (0.0-1.0); Blood Urea Nitrogen 18 mg/dL (9-16); Calcium 8.7 mg/dL (8.4-10.2); Carbon Dioxide 24 mmol/L (22-29); Chloride 105 mmol/L (96-108); Creatinine Clr Calc Pharmacy 48.6; Estimated Glomerular Filt Rate 36; Glucose Random 96 mg/dL (60-115); Lipase 65 U/L (8-78); Potassium 4.6 mmol/L (3.3-5.1); Sodium 140 mmol/L (135-145); Total Protein 7.4 g/dL (6.5-8.0)
--- NOTE | 2021-05-01 23:16 | PC.NURSE ---
UA obtained and sent by program technician.
[2021-05-01 23:23] LABS: Glucose Urine UA NEG (NEG); Leukocyte Esterase Urine NEG (NEG); Nitrite Urine NEG (NEG); PH 5.5 (5.0-8.0); Specific Gravity - Urine >= 1.030 (1.005-1.025); Urine Blood NEG (NEG); Urine Ketones NEG (NEG); Urine Protein NEG (NEG-TRACE)
[2021-05-01 23:25] LABS: Appearance Urine CLEAR; Color Urine YELLOW
--- NOTE | 2021-05-02 00:03 | PC.NURSE ---
Off to CT on hospital bed.
[2021-05-02 00:25] VITALS: BP 155/86; PULSE 70; RESP 20
[2021-05-02] MEDS: Acetaminophen 325 MG TABLET PO (01:10)
[2021-05-02] MEDS: Acetaminophen 325 MG TABLET 650 MG PO (01:10)
--- NOTE | 2021-05-02 01:16 | PC.NURSE ---
Pt medicated with Tylenol for pain. Aware of pending stool sample.
[2021-05-02 02:29] LABS: CDIFF Ag Negative (Negative); CDIFF Internal ctrl Dots and bkg OK (V); CDiff Toxin Negative (Negative); Leukocytes Stool Qualitative NEGATIVE (NEGATIVE)
[2021-05-02 02:39] VITALS: BP 148/90; PULSE 70; RESP 20
== END 2021-05-02 03:07 | disposition home or self-care (01) ==
PROVIDERS: Emergency Provider Student in an Organized Health Care Education/Training Program
DX: R10.9 Unspecified abdominal pain (principal); K50.90 Crohn's disease, unspecified, without complications
CPT/HCPCS: 36415; 74176; 80053; 81003; 83690; 85025; 87324; 87449; 89055; 99284

== ENCOUNTER 2021-06-30 08:25 | Inpatient (IN) | payer MEDICAID, SELFPAY ==
[2021-06-30] VITALS (10 sets, daily range): BP systolic 122–166; BP diastolic 64–92; PULSE 60–70; RESP 15–18; TEMP 36.1–37.1; O2SAT 95–100; BMI 31.0
--- NOTE | ~2021-06-30 | CT_ITS ---
EXAMINATION: CT ABDOMEN AND PELVIS WITHOUT CONTRAST CLINICAL INFORMATION: Constipation. Pain. Evaluate for obstruction. COMPARISON: Multiple priors, most recent CT abdomen/pelvis dated 05/02/2021 TECHNIQUE: Multidetector volumetric imaging was performed from the superior aspect of the liver through the pubic symphysis. Sagittal and coronal reformatted images were obtained on the technologist's workstation. This CT examination was performed using dose optimization techniques as appropriate, variously including the following: *Automated exposure control *Adjustment of mA and/or kV according to patient size (this includes techniques or standardized protocols for targeted exams where dose is matched to indication/reason for exam; i.e. extremities or head) *Use of iterative reconstruction technique DLP: 1022 mGy-cm FINDINGS: LUNG BASES: The visualized lung bases are unremarkable. LIVER, GALLBLADDER, AND BILIARY TREE: The liver is normal in size and shape. Parenchymal hypoattenuation, consistent with steatosis. No focal hepatic lesion or biliary ductal dilatation is present. The gallbladder is nondistended with no evidence of radiopaque gallstones, gallbladder wall thickening, or obvious pericholecystic inflammatory changes. PANCREAS: Unremarkable. SPLEEN: Unremarkable. ADRENAL GLANDS: Unremarkable. KIDNEYS AND URETERS: The kidneys are normal in size, shape, and attenuation. No hydronephrosis, hydroureter, or calculi seen. No perinephric stranding. BLADDER: Nondistended. GASTROINTESTINAL TRACT: Redemonstration of a total colectomy. A bowel anastomosis is again seen within the pelvis without evidence of leak or obstruction. Redemonstration of mild wall thickening and adjacent stranding in the pelvis, similar when compared to the prior examination. Soft tissue redemonstrated extending to the sacrum, similar when compared to the prior examination. No small bowel obstruction. PERITONEAL CAVITY: No intra-abdominal free air or free fluid. ABDOMINAL WALL: Anterior abdominal wall postsurgical change consistent with mesh hernia repair. No new, recurrent abdominal wall hernia. LYMPH NODES: Redemonstration of multiple mesenteric and pelvic lymph nodes. The largest mesenteric lymph node measures 1.2 x 2.4 cm (axial image 51/95), unchanged. Right and left pelvic lymph nodes measuring up to 1.5 x 2.1 cm along the right external iliac, unchanged and 1.4 x 2.2 cm along the left pelvic wall, unchanged. No new or increasing lymphadenopathy. VASCULAR: No abdominal aortic dilatation. Scattered atherosclerotic calcifications. Unremarkable IVC. PELVIC VISCERA: The prostate and seminal vesicles are unremarkable. OSSEOUS STRUCTURES: No new lytic or blastic osseous lesion. Prominent degenerative disc disease at L5-S1, unchanged. CT/CT abdomen pelvis wo con IMPRESSION: 1. Redemonstration of postsurgical change related to a total colectomy. The ileorectal anastomosis is again noted to have circumferential wall thickening with mild adjacent stranding and posterior soft tissue, similar when compared to the prior examination. No evidence of leak or obstruction. 2. Multiple enlarged pelvic and mesenteric lymph nodes are again seen, not significantly changed when compared to the prior examination. No new or increasing lymphadenopathy. 3. No new intra-abdominal mass or ascites. 4. Hepatic steatosis is redemonstrated. No new hepatic parenchymal lesion or biliary ductal dilatation.
--- NOTE | 2021-06-30 08:32 | ED.ABDPAIN ---
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 Mode of arrival: EMS Limitations: no limitations History of Present Illness MD elicited complaint: abdominal pain Pertinent past history: other (crohn's / colitis) Onset (ago): day(s) (2) Pain Consistency: intermittent Location: suprapubic Severity: similar to previous episodes Quality: cramping Radiation: none Migration to: no migration Exacerbating factors: nothing Relieving factors: nothing Context: history of similar episodes (constipation states [employer] is not working) Associated symptoms: nausea and constipation Related Data Home Medications Medication Instructions Recorded Confirmed felodipine 5 mg tablet,extended 1 tab PO DAILY 03/03/21 03/03/21 release 24 hr ferrous sulfate 325 mg (65 mg 1 tab PO DAILY 03/03/21 03/03/21 iron) tablet gabapentin 100 mg capsule 1 cap PO TID 03/03/21 03/03/21 ketotifen fumarate 0.025 % (0.035 1 drp OPHTHALMIC-RIGHT DAILY 03/03/21 03/03/21 %) eye drops lidocaine 5 % topical patch 1 patch TOPICAL DAILY 03/03/21 03/03/21 mesalamine 400 mg capsule (with 2 cap PO TID 03/03/21 03/03/21 delayed release tablets inside) metoprolol tartrate 50 mg tablet 1 tab PO BID 03/03/21 03/03/21 pantoprazole 40 mg tablet,delayed 1 tab PO DAILY 03/03/21 03/03/21 release rosuvastatin 40 mg tablet 1 tab PO BEDTIME 03/03/21 03/03/21 zolpidem 10 mg tablet 1 tab PO BEDTIME 03/03/21 03/03/21 methadone 10 mg/mL oral 50 mg PO DAILY 03/04/21 03/04/21 concentrate (Methadone Intensol) Previous Rx's Medication Instructions Recorded acetaminophen 325 mg capsule 650 mg PO Q4H PRN #20 cap 01/20/21 cefuroxime axetil 500 mg tablet 500 mg PO BID 7 Days #10 tab 03/05/21 metronidazole 500 mg tablet 500 mg PO Q8H #15 tab 03/05/21 (Flagyl) Allergies Allergy/AdvReac Type Severity Reaction Status Date / Time Iodinated Contrast Media Allergy Intermediate HIVES Verified 06/30/21 08:33 [IV CONTRAST] prednisone [PREDNISONE] Allergy Mild RASH Verified 06/30/21 08:33 prednisolone Allergy Unknown rash Verified 06/30/21 08:33 Review of Systems Review of Systems Constitutional : No Weight loss, No Fever, No Chills ENT/Mouth : No sore throat, No Rhinorrhea Eyes: No Swelling, No Redness Cardiovascular : No Chest Pain, No SOB, NoEdema Respiratory : No Cough, No Sputum, No Wheezing Gastrointestinal : Positive Nausea, no Vomiting, no Diarrhea, positive abdominal Pain, No Hematochezia, No Melena, pos constipation Genitourinary : No Dysuria, No Urinary Frequency, No Hematuria, No Urgency Musculoskeletal : No joint pain, No Myalgias, No Joint Swelling Skin : No Skin Lesions, No rash Neuro : No Weakness, No Numbness, No Dizziness, No Headache Psych : No Anxiety/Panic, No Depression Heme/Lymph: No Bruising, No Lymphadenopathy Endocrine : No Polyuria, No Polydipsia All other systems reviewed and are negative. Physical Exam Vital Signs: Vital Signs: Last Vital Signs Temp 98.8 F 06/30/21 08:28 Pulse 70 06/30/21 09:23 Resp 18 06/30/21 09:23 BP 141/83 H 06/30/21 09:23 Pulse Ox 97 06/30/21 09:23 Body Mass Index 31.0 Appearance: Alert. Oriented X3. No acute distress. Eyes: Pupils equal, round and reactive to light. ENT: Pharynx normal. Neck: Normal inspection. Neck supple. CVS: Normal heart rate and rhythm. Pulses normal. Respiratory: No respiratory distress. Breath sounds normal. Abdomen: Soft and mmoderate ttp in LLQ no rebound or guarding Skin: Skin warm and dry. Normal skin color. Normal skin turgor. Extremities: No lower extremity edema. No calf ttp Neuro: Oriented X 3. No motor deficit. No sensory deficit. Course Course Course Narrative: no WBC count, no diarrhea, no bloody stools, no fever, unchanged CT scan from April likely chronic inflammation, no obstruction message sent to his GI doctor Shira. discussed with Dr. Silva 1155am - would admit for pain control, steroids IV solumedrol patient has allergy, IV antibiotics, Dr. Turner can see tomorrow. message forwarded to Dr. Manning renal failure is chronic not related to infection or severe sepsis, no fevers, no signs of sepsis no WBC count - IV flagyl and levofloxacin ordered MDM - Abdominal Pain MDM Narrative Medical decision making narrative: 56 yo male with hx of crohn's/colectomy on mesalamine reports constipation but flatus and nausea x 2 days hx of frequent bouts of the same in past - at this time will obtain labs, CT scan for obstruction, he states he has linzess at home but it doesn't work, dispo per results and findings. Lab Data Result diagrams: 06/30/21 08:51 06/30/21 08:51 Labs: Lab Results 06/30/21 06/30/21 Range/Units 08:51 08:51 WBC 7.8 (4.8-10.8) X10*3/uL RBC 3.92 L (4.60-5.80) X10*6/uL Hgb 10.6 L (14.0-18.0) g/dl Hct 34.1 L (42-52) % MCV 87.0 (80-98) fL MCH 27.0 (27.0-33.0) pg MCHC 31.1 (31.0-36.0) g/dl RDW 16.3 H (11.0-16.0) % Plt Count 250 (160-400) X10*3/uL MPV 9.4 (9.4-12.4) fL Immature Gran % (Auto) 0.3 (0.0-0.4) % Neut % (Auto) 72.8 (45-73) % Lymph % (Auto) 14.5 L (20-40) % [place] % (Auto) 9.8 (2-11) % Eos % (Auto) 2.3 (0-4) % Baso % (Auto) 0.3 (0-2) % Lymph # (Auto) 1.1 L (1.2-4.9) X10*3/uL [place] # (Auto) 0.8 (0.1-1.2) X10*3/uL Eos # (Auto) 0.2 (0.0-0.4) X10*3/uL Baso # (Auto) 0.0 (0.0-0.2) X10*3/uL Abs Immat Gran (auto) 0.02 (0.00-0.03) X10*3/uL Absolute Neuts (auto) 5.7 (2.0-8.3) X10*3/uL Absolute Nucleated RBC 0.000 (0.0-0.012) X10*3/uL Nucleated RBC % (auto) 0.0 (0.0-0.2) /100WBC Sodium 138 (135-145) mmol/L Potassium 4.6 (3.3-5.1) mmol/L Chloride 105 (96-108) mmol/L Carbon Dioxide 24 (22-29) mmol/L Anion Gap 14 (12-20) BUN 20 H (9-16) mg/dL Creatinine 2.06 H (0.5-1.4) mg/dL Estim Creat Clear Calc 45.6 Estimated GFR 34 Random Glucose 135 H D (60-115) mg/dL Calcium 9.0 (8.4-10.2) mg/dL Magnesium 1.8 (1.6-2.6) mg/dL Total Bilirubin 0.3 (0.0-1.0) mg/dL Direct Bilirubin < 0.2 (0.0-0.5) mg/dL AST 17 (5-37) U/L ALT 15 (0-40) U/L Alkaline Phosphatase 70 (39-117) U/L Total Protein 7.8 (6.5-8.0) g/dL Albumin 3.8 (3.5-5.0) g/dL Lipase 60 (8-78) U/L ECG Data Attestation: I personally reviewed and interpreted this ECG as follows: ECG interpretation date: 06/30/21 ECG interpretation time: 09:07 Interpretation: Rate: 64 Rhythm: NSR with 1st degree AVB [place]: left, LVH Normal P waves. Normal MARIA DE JESUS. Normal QRS complex. ST T wave : normal no PILAR qTC: normal prior studies: no acute ischemia The study has been interpreted contemporaneously by me. . Discharge Plan Discharge Clinical Impression: Abdominal pain Qualifiers: Abdominal location: left lower quadrant Qualified Code(s): R10.32 - Left lower quadrant pain Constipation Qualifiers: Constipation type: other constipation type Qualified Code(s): K59.09 - Other constipation Crohn's disease Qualifiers: Gastrointestinal tract location: unspecified location Digestive disease complication type: without complication Qualified Code(s): K50.90 - Crohn's disease, unspecified, without complications Patient Disposition: Admitted As Inpatient [facility] Past Medical History Attestation statement: The following information was validated with the patient. Medical History CKD (chronic kidney disease) Colitis Crohn's disease of both small and large intestine HLD (hyperlipidemia) HTN (hypertension) Surgical History H/O cervical spine surgery H/O total colectomy History of colostomy reversal Family History Family History Mother Stroke Diabetes mellitus HTN (hypertension), benign Hyperlipidemia Brother Diabetes mellitus Social History Social History (Updated 06/30/21 @ 08:56 by Kinza Guardado DO) Household Members: None Housing: House Do you presently have visiting nurse or other home services: No Alcohol intake: never Patient Tobacco Use Status: Never used Tobacco Substance Use Type: Heroin Advance Directives: Yes Advance Directives Information Provided: Yes Advance Directives on File: No service: No Current occupational status: unemployed
--- NOTE | 2021-06-30 08:36 | ECG_ITS ---
Test Reason : AB PAIN Blood Pressure : / mmHG Vent. Rate : 064 BPM Atrial Rate : 064 BPM P-R Int : 204 ms QRS Dur : 086 ms QT Int : 422 ms P-R-T Axes : 033 -25 -01 degrees QTc Int : 435 ms Normal sinus rhythm Minimal voltage criteria for LVH, may be normal variant Borderline ECG When compared with ECG of 12-JAN-2019 13:17, No significant change was found Referred By: Kinza Guardado Electronically Signed By:MIKE METZGER
[2021-06-30 08:58] LABS: MANUAL DIFF FLAG NO
[2021-06-30] MEDS: ondansetron HCL 4 MG/2 ML VIAL IVPUSH (08:59)
[2021-06-30 09:03] LABS: Basophils Percent Auto 0.3 % (0-2); Eosinophils Absolute Auto 0.2 X10*3/uL (0.0-0.4); Eosinophils Percent Auto 2.3 % (0-4); Hematocrit 34.1 % (42-52); Hemoglobin 10.6 g/dl (14.0-18.0); Imm Gran Abs Auto 0.02 X10*3/uL (0.00-0.03); Imm Gran Pct Auto 0.3 % (0.0-0.4); Lymphocytes Absolute Auto 1.1 X10*3/uL (1.2-4.9); Lymphocytes Percent Auto 14.5 % (20-40); Mean Corpuscular HGB Conc 31.1 g/dl (31.0-36.0); Mean Platelet Volume 9.4 fL (9.4-12.4); Monocytes Absolute Auto 0.8 X10*3/uL (0.1-1.2); Monocytes Percent Auto 9.8 % (2-11); Neutrophils Absolute Auto 5.7 X10*3/uL (2.0-8.3); Neutrophils Percent Auto 72.8 % (45-73); Platelet Count 250 X10*3/uL (160-400); Red Blood Count 3.92 X10*6/uL (4.60-5.80); Red Cell Distribution Width 16.3 % (11.0-16.0); White Blood Count 7.8 X10*3/uL (4.8-10.8)
[2021-06-30 09:57] LABS: Alanine Aminotransferase 15 U/L (0-40); Albumin Level 3.8 g/dL (3.5-5.0); Alkaline Phosphatase 70 U/L (39-117); Anion Gap 14 (12-20); Aspartate Amino Transferase 17 U/L (5-37); Bilirubin Direct < 0.2 mg/dL (0.0-0.5); Bilirubin Total 0.3 mg/dL (0.0-1.0); Blood Urea Nitrogen 20 mg/dL (9-16); Carbon Dioxide 24 mmol/L (22-29); Chloride 105 mmol/L (96-108); Creatinine Clr Calc Pharmacy 45.6; Estimated Glomerular Filt Rate 34; Glucose Random 135 mg/dL (60-115); Lipase 60 U/L (8-78); Magnesium 1.8 mg/dL (1.6-2.6); Potassium 4.6 mmol/L (3.3-5.1); Sodium 138 mmol/L (135-145); Total Protein 7.8 g/dL (6.5-8.0)
[2021-06-30] MEDS: methylPREDNISolone Sod Succ 40 MG/ML VIAL 20 MG IVPUSH (12:26)
[2021-06-30] MEDS: levoFLOXacin/D5W 250 MG/50 ML PIGGYBACK 50 MG IV (12:28)
--- NOTE | 2021-06-30 12:58 | PHA.MEDREC ---
Pharmacy Consult ? Medication Reconciliation Pharmacy has completed the medication reconciliation.spoke with patient in ED
[2021-06-30 13:29] LABS: COVID-19 Test Negative (Negative)
--- NOTE | 2021-06-30 14:59 | P.HPHOSP_ITS ---
History of Present Illness Date of Service: 06/30/21 Chief Complaint: Abdominal pain 56 year male with history of 1. Ulcerative colitis, status post total colectomy with ileal pouch-anal anastomosis in 2007. 2. Chronic kidney disease. Baseline creat in the 2?s. 3. Depression. 4. Hypertension. 5. Hyperlipide serena. 6. History of opiate use who presents to the hospital with abdominal pain that started 2 days ago, 8 to 10/10, no associated diarrhea or bloody bowel movment or diarrhea. He says this is fairly similar to past flairs of colitis. CT of the abdomen shows some bowel thickening around Anastamosis. WBC is normas , no fever. Treate with empric levaquin and flagyl and steroid. Review of Systems Review of Systems: Gen: no fever Resp: no sob, no cough CV: no chest, no GEORGE, no leg edema GI: no n/v, + abd pain Neuro: No confusion [facility] Medical History (Updated 06/30/21 @ 15:08 by Herb Laird MD) CKD (chronic kidney disease) Colitis Crohn's disease of both small and large intestine HLD (hyperlipidemia) HTN (hypertension) Family History Mother Stroke Diabetes mellitus HTN (hypertension), benign Hyperlipidemia Brother Diabetes mellitus Surgical History H/O cervical spine surgery H/O total colectomy History of colostomy reversal Social History (Updated 06/30/21 @ 08:56 by Kinza Guardado DO) Household Members: None Housing: House Do you presently have visiting nurse or other home services: No Alcohol intake: never Patient Tobacco Use Status: Never used Tobacco Substance Use Type: Heroin Advance Directives: Yes Advance Directives Information Provided: Yes Advance Directives on File: No service: No Current occupational status: unemployed Meds Allergies Allergy/AdvReac Type Severity Reaction Status Date / Time Iodinated Contrast Media Allergy Intermediate HIVES Verified 06/30/21 08:33 [IV CONTRAST] prednisone [PREDNISONE] Allergy Mild RASH Verified 06/30/21 08:33 prednisolone Allergy Unknown rash Verified 06/30/21 08:33 Active Medications: Current Medications Generic Name Dose Route Start Last Admin Trade Name Freq PRN Reason Stop Dose Admin Pharmacy Consult 1 each 06/30/21 11:52 Consult Rx Perform Med Rec MISCELLANE ONCE PRN Consult order Home Medications Medication Instructions Recorded Confirmed Last Taken Type felodipine 5 mg tablet,extended 1 tab PO DAILY 03/03/21 06/30/21 06/30/21 History release 24 hr gabapentin 100 mg capsule 1 cap PO TID 03/03/21 06/30/21 06/30/21 History ketotifen fumarate 0.025 % (0.035 1 drp OPHTHALMIC (EYE) BID 03/03/21 06/30/21 06/30/21 History %) eye drops lidocaine 5 % topical patch 1 patch TOPICAL DAILY 03/03/21 06/30/21 03/02/21 History mesalamine 400 mg capsule (with 2 cap PO TID 03/03/21 06/30/21 06/30/21 History delayed release tablets inside) metoprolol tartrate 50 mg tablet 1 tab PO BID 03/03/21 06/30/21 06/30/21 History pantoprazole 40 mg tablet,delayed 1 tab PO DAILY@0630 03/03/21 06/30/21 06/30/21 History release rosuvastatin 40 mg tablet 1 tab PO BEDTIME 03/03/21 06/30/21 06/29/21 History zolpidem 10 mg tablet 1 tab PO BEDTIME 03/03/21 06/30/21 06/29/21 History methadone 10 mg/mL oral 40 mg PO DAILY 03/04/21 06/30/21 06/29/21 History concentrate (Methadone Intensol) clotrimazole 1 % topical cream 1 appl TOPICAL BID PRN 06/30/21 06/30/21 Unknown History cyanocobalamin (vitamin B-12) 1 tab PO QAM 06/30/21 06/30/21 06/30/21 History 1,000 mcg tablet ferrous gluconate 324 mg (38 mg 1 tab PO QAM 06/30/21 06/30/21 06/30/21 History iron) tablet Physical Exam Vital Signs and Narrative: Vital Signs: Last Vital Signs Temp 98.8 F 06/30/21 12:17 Pulse 61 06/30/21 12:33 Resp 18 06/30/21 12:33 BP 138/77 06/30/21 12:33 Pulse Ox 98 06/30/21 12:33 Body Mass Index 31.0 Constitutional Awake and Alert, No apparent distress HEENT anicteric Neck Supple, No lymphadenopathy Cardiovascular RRR, No M/R/G, S1 S2, No S3 S4, No pedal edema Respiratory Lungs clear, No respiratory distress Gastrointestinal mild abdominal tenderness, Non-distended Skin No rash Neurological Alert & oriented x3 Psychological Appropriate affect Results Labs CBC and Chem 7: 06/30/21 08:51 06/30/21 08:51 Labs: Laboratory Results - last 24 hr 06/30/21 06/30/21 06/30/21 08:51 08:51 12:56 MCV 87.0 MCH 27.0 MCHC 31.1 RDW 16.3 H Plt Count 250 MPV 9.4 Immature Gran % (Auto) 0.3 Neut % (Auto) 72.8 Lymph % (Auto) 14.5 L [place] % (Auto) 9.8 Eos % (Auto) 2.3 Baso % (Auto) 0.3 Lymph # (Auto) 1.1 L [place] # (Auto) 0.8 Eos # (Auto) 0.2 Baso # (Auto) 0.0 Abs Immat Gran (auto) 0.02 Absolute Neuts (auto) 5.7 Absolute Nucleated RBC 0.000 Nucleated RBC % (auto) 0.0 Anion Gap 14 Estim Creat Clear Calc 45.6 Estimated GFR 34 Random Glucose 135 H D Calcium 9.0 Magnesium 1.8 Total Bilirubin 0.3 Direct Bilirubin < 0.2 AST 17 ALT 15 Alkaline Phosphatase 70 Total Protein 7.8 Albumin 3.8 Lipase 60 COVID-19 (NANCY) Negative COVID-19 Clin Com See Note Imaging Radiologist's Impressions: Impressions Abdomen/Pelvis CT 06/30/21 08:36 IMPRESSION: 1. Redemonstration of postsurgical change related to a total colectomy. The ileorectal anastomosis is again noted to have circumferential wall thickening with mild adjacent stranding and posterior soft tissue, similar when compared to the prior examination. No evidence of leak or obstruction. 2. Multiple enlarged pelvic and mesenteric lymph nodes are again seen, not significantly changed when compared to the prior examination. No new or increasing lymphadenopathy. 3. No new intra-abdominal mass or ascites. 4. Hepatic steatosis is redemonstrated. No new hepatic parenchymal lesion or biliary ductal dilatation. Assessment and Plan (1) Abdominal pain: Qualifiers: Abdominal location: left lower quadrant Qualified Code(s): R10.32 - Left lower quadrant pain Status: Acute (2) Ulcerative colitis: Status: Acute (3) HLD (hyperlipidemia): Status: Acute (4) HTN (hypertension): Status: Acute ?56 year old man admitted with abdominal pain found to have colitis.? Patient has had history of ulcerative colitis with colectomy more than 9 years ago at [facility]. Colitis. likely flair of ulcerative colitis -Continue Levaquin and Flagyl D1 -IVF -Morphine for pain -IV solumedrol -Check C dif if gets diarrhea -GI consult. CKD3--Creatinine within baseline, monitor Normocytic anemia--likely anemia of chronic disease, stable Hypertension. continue Metoporolol Hyperlipidemia--Statin H/o opioid dependence--Methadone once dose verified. Quality Stroke Does the patient have a stroke diagnosis?: No VTE Prior VTE?: No VTE Risk Level:: Medical - moderate - high VTE Device Contraindication: N/A - Device Ordered VTE Drug Contraindication: N/A - Med Ordered
--- NOTE | 2021-06-30 15:03 | PC.NURSE ---
pt needs frequent queuing to keep arm with iv straight.
[2021-06-30] MEDS: metroNIDAZOLE/NS 500 MG/100 ML PIGGYBACK 100 MG IV ×2 (15:15→22:17)
--- NOTE | 2021-06-30 16:26 | PC.NURSE ---
1st call to [facility]
[2021-06-30] MEDS: Heparin Sodium,Porcine 5,000 UNIT/ML VIAL 5000 UNIT SUBCUT (17:18)
[2021-06-30] MEDS: Morphine Sulfate 4 MG/ML CARTRIDGE 3 MG IVPUSH ×2 (17:18→22:14)
[2021-06-30] MEDS: 0.9 % Sodium Chloride Flush 3 ML SYRINGE IVFLUSH (17:19)
[2021-06-30] MEDS: Dextrose 5 % and 0.45 % NaCl 1,000 ML 100 ML IVCONT (17:19)
[2021-06-30] MEDS: Metoprolol Tartrate 50 MG TABLET PO (20:38)
[2021-06-30] MEDS: Mesalamine 400 MG CAP.DRTAB. 800 MG PO (20:38)
[2021-06-30] MEDS: Zolpidem Tartrate 5 MG TABLET 10 MG PO (20:38)
[2021-06-30] MEDS: Atorvastatin Calcium 80 MG TABLET PO (20:38)
[2021-06-30] MEDS: Gabapentin 100 MG CAPSULE PO (20:38)
[2021-06-30] MEDS: Ketotifen Fumarate 0.025% Oph 5 ML DRPBTL 1 DROP EYE-BOTH (22:24)
[2021-07-01] VITALS (11 sets, daily range): BP systolic 122–178; BP diastolic 66–90; PULSE 56–90; RESP 16–19; TEMP 36.1–36.4; O2SAT 97–100
[2021-07-01] MEDS: Omeprazole 20 MG CAPSULE.DR PO (05:29)
[2021-07-01] MEDS: Heparin Sodium,Porcine 5,000 UNIT/ML VIAL 5000 UNIT SUBCUT ×2 (05:29→17:24)
[2021-07-01] MEDS: Morphine Sulfate 4 MG/ML CARTRIDGE 3 MG IVPUSH ×3 (05:29→17:25)
[2021-07-01] MEDS: metroNIDAZOLE/NS 500 MG/100 ML PIGGYBACK 100 MG IV ×3 (06:32→22:28)
[2021-07-01] MEDS: methADONE HCl 20 MG/2 ML ORAL.CONC 40 MG PO (08:56)
[2021-07-01] MEDS: Mesalamine 400 MG CAP.DRTAB. 800 MG PO ×3 (08:56→22:27)
[2021-07-01] MEDS: Lidocaine 4 % Patch ADH..PATCH 1 PATCH TRANSDERMA (08:57)
[2021-07-01] MEDS: Metoprolol Tartrate 50 MG TABLET PO ×2 (08:57→22:28)
[2021-07-01] MEDS: Cyanocobalamin (Vitamin B-12) 1,000 MCG TABLET 1000 MCG PO (08:57)
[2021-07-01] MEDS: Ketotifen Fumarate 0.025% Oph 5 ML DRPBTL 1 DROP EYE-BOTH ×2 (08:57→22:40)
[2021-07-01] MEDS: amLODIPine Besylate 5 MG TABLET PO (08:57)
[2021-07-01] MEDS: Gabapentin 100 MG CAPSULE PO ×3 (08:57→22:27)
[2021-07-01] MEDS: Ferrous Sulfate 324 MG TABLET.DR PO (08:57)
[2021-07-01 09:38] LABS: Hematocrit 30.9 % (42-52); Hemoglobin 9.6 g/dl (14.0-18.0); Mean Corpuscular HGB Conc 31.1 g/dl (31.0-36.0); Mean Platelet Volume 9.4 fL (9.4-12.4); Platelet Count 229 X10*3/uL (160-400); Red Blood Count 3.55 X10*6/uL (4.60-5.80); Red Cell Distribution Width 15.9 % (11.0-16.0); White Blood Count 6.8 X10*3/uL (4.8-10.8)
[2021-07-01 10:00] LABS: Anion Gap 10 (12-20); Blood Urea Nitrogen 20 mg/dL (9-16); Calcium 8.9 mg/dL (8.4-10.2); Carbon Dioxide 28 mmol/L (22-29); Chloride 102 mmol/L (96-108); Creatinine Clr Calc Pharmacy 54.3; Estimated Glomerular Filt Rate 41; Glucose Random 130 mg/dL (60-115); Potassium 4.2 mmol/L (3.3-5.1); Sodium 136 mmol/L (135-145)
--- NOTE | 2021-07-01 11:07 | HO.PM.IMPN ---
Subjective Subjective Date of Service: 07/01/21 Interval History: Patient seen and examined at bedside, he reports some improvement in his pain but continues to have she constant pressure sent pain. He continues to have diarrhea, nonbloody. Review of Systems No fever no chills, No chest pain No shortness of breath , no cough No urinary symptom No lower extremity edema Physical Exam Vital Signs: Vital Signs: Last Vital Signs Temp 97.1 F 07/01/21 07:35 Pulse 57 07/01/21 08:57 Resp 19 07/01/21 07:35 BP 156/76 H 07/01/21 08:57 Pulse Ox 98 07/01/21 07:35 Body Mass Index 31.0 Const: General: cooperative and no acute distress Orientation/consciousness: patient oriented x3 Resp: Effort & Inspection: normal respiratory effort, able to speak in complete sentences and abnormal respiratory pattern Auscultation: clear to auscultation bilaterally Cardio: Rate: regular rate Rhythm: regular rhythm GI: Other: Moderate abdominal tenderness in the right lower quadrant Palpation (GI): Soft to palpation Auscultation: normal bowel sounds Neuro: General: patient oriented x3 Extrem: General: Yes normal to inspection and Yes no pedal edema Objective Data Current Medications Generic Name Dose Route Start Last Admin Trade Name Freq PRN Reason Stop Dose Admin Amlodipine Besylate 5 mg 07/01/21 09:00 07/01/21 08:57 Amlodipine Besylate 5 Mg Tablet PO 5 mg DAILY MELVI Administration Atorvastatin Calcium 80 mg 06/30/21 21:00 06/30/21 20:38 Atorvastatin Calcium 80 Mg Tablet PO 80 mg BEDTIME MELVI Administration Clotrimazole 1 appl 06/30/21 15:16 Clotrimazole 1 % Cream 15 Gm Tube TOPICAL BID PRN Rash Protocol Cyanocobalamin 1,000 mcg 07/01/21 09:00 07/01/21 08:57 Cyanocobalamin (Vitamin B-12) 1,000 Mcg Tablet PO 1,000 mcg DAILY MELVI Administration Ferrous Sulfate 324 mg 07/01/21 09:00 07/01/21 08:57 Ferrous Sulfate 324 Mg Tablet. PO 324 mg DAILY MELVI Administration Gabapentin 100 mg 06/30/21 21:00 07/01/21 08:57 Gabapentin 100 Mg Capsule PO 100 mg TID MELVI Administration Heparin Sodium (Porcine) 5,000 unit 06/30/21 18:00 07/01/21 05:29 Heparin Sodium,Porcine 5,000 Unit/Ml Vial SUBCUT 5,000 unit Q12H MELVI Administration Dextrose/Sodium Chloride 1,000 mls @ 100 mls/hr 06/30/21 15:15 07/01/21 03:31 D51/2ns IVCONT Infused .Q10H MELVI Infusion Metronidazole 500 mg in 100 mls @ 100 mls/hr 06/30/21 23:00 07/01/21 07:53 Flagyl IV Infused Q8H MELVI Infusion Levofloxacin 500 mg in 100 mls @ 100 mls/hr 07/01/21 12:00 Levaquin IV Q24H MELVI Ketotifen Fumarate 1 drop 06/30/21 21:00 07/01/21 08:57 Ketotifen Fumarate 0.025% Oph 5 Ml Drpbtl EYE-BOTH 1 drop BID MELVI Administration Lidocaine 1 patch 07/01/21 09:00 07/01/21 08:57 Lidocaine 4 % Patch Adh..Patch TRANSDERMA 1 patch DAILY MELVI Administration Magnesium Hydroxide 30 ml 06/30/21 15:13 Milk Of Magnesia 30 Ml Oral.Susp PO DAILY PRN Constipation Melatonin 6 mg 06/30/21 15:13 Melatonin 3 Mg Tablet PO BEDTIME PRN Insomnia Mesalamine 800 mg 06/30/21 21:00 07/01/21 08:56 Mesalamine 400 Mg Cap.Drtab. PO 800 mg TID MELVI Administration Methadone HCl 40 mg 07/01/21 09:00 07/01/21 08:56 Methadone Hcl 20 Mg/2 Ml Oral.Conc PO 40 mg DAILY MELVI Administration Metoprolol Tartrate 50 mg 06/30/21 21:00 07/01/21 08:57 Metoprolol Tartrate 50 Mg Tablet PO 50 mg BID MELVI Administration Protocol Morphine Sulfate 3 mg 06/30/21 16:45 07/01/21 05:29 Morphine Sulfate 4 Mg/Ml Cartridge IVPUSH 3 mg Q4H PRN Administration Pain, Severe (Pain Scale 7-10) Protocol Omeprazole 20 mg 07/01/21 06:30 07/01/21 05:29 Omeprazole 20 Mg Capsule.Dr PO 20 mg DAILY@0630 MELVI Administration Ondansetron HCl 4 mg 06/30/21 15:13 Ondansetron Hcl 4 Mg/2 Ml Vial IVPUSH Q8H PRN Nausea and Vomiting Pharmacy Consult 1 each 06/30/21 11:52 Consult Rx Perform Med Rec MISCELLANE ONCE PRN Consult order Sodium Chloride 3 ml 06/30/21 16:00 07/01/21 08:57 0.9 % Sodium Chloride Flush 3 Ml Syringe IVFLUSH Not Given QSHIFT MELVI Zolpidem Tartrate 10 mg 06/30/21 21:00 06/30/21 20:38 Zolpidem Tartrate 5 Mg Tablet PO 10 mg BEDTIME MELVI Administration Labs CBC & Chem 7: 07/01/21 09:29 07/01/21 09:29 Labs: Laboratory Results - last 24 hr 06/30/21 07/01/21 07/01/21 12:56 09:29 09:29 MCV 87.0 MCH 27.0 MCHC 31.1 RDW 15.9 Plt Count 229 MPV 9.4 Absolute Nucleated RBC 0.000 Nucleated RBC % (auto) 0.0 Anion Gap 10 L Estim Creat Clear Calc 54.3 Estimated GFR 41 Random Glucose 130 H Calcium 8.9 COVID-19 (NANCY) Negative COVID-19 Clin Com See Note Assessment and Plan (1) Abdominal pain: Status: Acute (2) Ulcerative colitis: Status: Acute (3) Colitis: Status: Acute (4) HTN (hypertension): Status: Acute (5) HLD (hyperlipidemia): Status: Acute (6) Constipation: Status: Acute Assessment and Plan: 56 year old man admitted with abdominal pain found to have colitis.? Patient has had history of ulcerative colitis with colectomy more than 9 years ago at [facility]. # Colitis. likely flair of ulcerative colitis -Continue Levaquin and Flagyl D2 -IVF -Morphine for pain -IV solumedrol - C diff pending -GI consult. # CKD3--Creatinine within baseline, monitor # Normocytic anemia--likely anemia of chronic disease, stable # Hypertension. continue Metoporolol # Hyperlipidemia--Statin # H/o opioid dependence--Methadone once dose verified. Quality Stroke Does the patient have a stroke diagnosis?: No VTE Prior VTE?: No VTE Risk Level:: Medical - moderate - high VTE Device Contraindication: N/A - Device Ordered VTE Drug Contraindication: N/A - Med Ordered
[2021-07-01 12:19] LABS: CDiff Gene PCR NEGATIVE (Negative)
[2021-07-01] MEDS: levoFLOXacin/D5W 500 MG/100 ML PIGGYBACK 100 MG IV (12:21)
--- NOTE | 2021-07-01 12:43 | MHC.CM.PN ---
CM MET WITH PT WHO REPORTS HE LIVES ALONE AND IS INDEPENDENT WITH SELF CARE. PT CURRENTLY HAS NO SERVICES AND NO DME ALTHOUGH HE REPORTS HE DOES NEED A HOSPITAL BED DUE TO A NECK INJURY. CM EXPLAINED HE WOULD NEED A REFERRAL FROM HIS PCP FOR THIS TO BE COVERED BY HIS INSURANCE. PT HAS A HCP ON FILE THAT HE CONFIRMS HIS ACCURATE. PT REPORTS HE DOES NOT KNOW THE NAME OF HIS PCP BUT HE GOES TO [facility]. CM WILL CALL FOR PCP INFORMATION. CURRENT DC PLAN IS HOME WITH NO SERVICES PT WILL NEED ASSISTANCE WITH TRANSPORTATION
--- NOTE | 2021-07-01 17:02 | PM.EVENT ---
Event Note Date of Service: 07/01/21 Event Note: GI Consult-Full note dictated--Hx via patient and EMR. 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 He seems to be much improved after about 24 hours of IV Levaquin and Flagyl. He received a single does of IV steroids yesterday in the ER. His lower GI sx have presently resolved and his abdominal exam is benign. Rec: I don't think he needs any steroids at this time. I would send him home on a coure of oral antibiotics with Flagyl and either Cipro or Levaquin for 7 days. He should continue his mesalamine. I told him to call to make a F/U appointment with Dr. Silva as well. He was comfortable with this plan. Thanks
[2021-07-01] MEDS: Zolpidem Tartrate 5 MG TABLET 10 MG PO (22:27)
[2021-07-01] MEDS: Dextrose 5 % and 0.45 % NaCl 1,000 ML 100 ML IVCONT (22:27)
[2021-07-01] MEDS: Atorvastatin Calcium 80 MG TABLET PO (22:27)
[2021-07-01] MEDS: 0.9 % Sodium Chloride Flush 3 ML SYRINGE IVFLUSH (22:28)
--- NOTE | 2021-07-01 23:59 | CONS_ITS ---
DATE OF SERVICE: 07/01/2021 REASON FOR CONSULTATION: Change in bowel habits with associated diarrhea and urgency. HISTORY OF PRESENT ILLNESS: This has been obtained from the patient and the medical record. The patient is a 56-year-old male, who describes a previous history of long-standing inflammatory bowel disease, for which he underwent eventual colectomy and temporary colostomy in the early at [facility] with Dr. Johns. At that time, he was being followed by Dr. Johns and Dr. Chase. More recently, has had his care here in [place]. Most recently, has been seen by Dr. Silva. 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 His last procedure with Dr. Silva was in January of 2020. This involved both upper endoscopy and pouchoscopy. The upper endoscopy did not reveal any significant findings. The pouchoscopy revealed some granularity and friability in the pouch consistent with pouchitis. At that time, he was treated with a course of Cipro. Biopsies from those procedures did reveal some nonspecific inflammation, but were negative for granulomas. The upper endoscopy biopsies did not reveal any celiac disease, H pylori, no granulomas. He was last admitted here in February. At that time, it appears he was treated with a course of some initial IV and then oral antibiotics for pouchitis symptoms. Since discharge from his February admission, he describes intermittent symptoms of some loose stool and urgency. This became particularly pronounced over the past few days, prompting his ER visit and admission. He has not noticed any hematochezia. He denies any particular abdominal pain other than cramps. He denies any nausea nor vomiting. He denies any abdominal distention. He denies any antibiotics at home, travel, nor ill contacts. He denies use of any significant NSAIDs. Since admission here, he is feeling much better after 24 hours of IV Levaquin and Flagyl. He did receive a single dose of steroids in the ER, but has not needed any further steroids. Today, he is tolerating his diet and feels much improved. MEDICATIONS: His present medications include atorvastatin, vitamin B12, iron, gabapentin, subcu heparin, eyedrops, IV Levaquin, melatonin p.r.n., mesalamine 800 mg t.i.d., methadone, metoprolol, IV Flagyl, morphine p.r.n., omeprazole, Zofran p.r.n., and Ambien. PAST MEDICAL HISTORY: Colectomy with temporary colostomy in the early as described above. Inflammatory bowel disease. History of pouchitis. Hypertension. Hyperlipidemia. Anemia. Renal insufficiency. C-spine surgery. He denies history of KS or stroke. SOCIAL HISTORY: He denies any significant alcohol use nor tobacco. FAMILY HISTORY: Noncontributory. REVIEW OF SYSTEMS: CONSTITUTIONAL: In general, he had been feeling fairly well at home other than his GI symptoms. His appetite has been good. SKIN: No rash. No pruritus. CARDIAC: No chest pain. PULMONARY: No cough. No hemoptysis. GASTROINTESTINAL: As above. He denies any significant heartburn nor dysphagia. PHYSICAL EXAMINATION: GENERAL: The patient is a pleasant, alert, comfortable appearing male, in no distress. SKIN: Warm and dry. NECK: Supple. CARDIAC: Normal S1, S2. ABDOMEN: Soft, nondistended, nontender without palpable mass nor organomegaly. LABORATORY DATA: White blood cell count 6.8, hemoglobin 9.6, MCV 87, platelets 229,000. Normal electrolytes. BUN 20, creatinine 1.7, total bilirubin 0.3, AST 17, ALT 15, alkaline phosphatase 70, albumin 3.8, lipase 60. Stool for C diff was negative. COVID was negative. He had a CAT scan of the abdomen and pelvis yesterday that did not show any sign of bowel obstruction. The anastomosis from his previous colectomy and pouch formation appeared normal. There was some mild bowel wall thickening and stranding in the region of his pelvis and previous surgery. There was no sign of any fluid collections nor abscess. Fatty liver was noted, but no other liver disease nor biliary disease was described. IMPRESSION: Given the patient's clinical history, this seems consistent with some increased symptomatology in relation to his known pouchitis. At this point, he seems to have had a significant improvement after 24 hours of IV antibiotics. At this point, I do not think he needs any further intervention such as steroids. Since he is doing well, I think he could be switched over to oral antibiotics by tomorrow and most likely be discharged at that time. I would recommend him going home on a course of Flagyl and either Cipro or Levaquin. I did advise him to continue his mesalamine as an outpatient. I do not think he needs to go home on a prednisone. I do not think any type of endoscopic intervention is presently required. I did advise him to make a followup appoint with Dr. Silva as well. I did review all this with him in detail, and he is comfortable with this plan. Thank you for the consultation. MD JUAN DANIEL Colon/CHAD / [id number]
[2021-07-02 03:50] VITALS: BP 176/77; PULSE 101; RESP 18; TEMP 36.8; O2SAT 98
[2021-07-02] MEDS: metroNIDAZOLE/NS 500 MG/100 ML PIGGYBACK 100 MG IV (06:22)
[2021-07-02] MEDS: Omeprazole 20 MG CAPSULE.DR PO (06:22)
[2021-07-02 08:00] VITALS: BP 152/96; PULSE 64; RESP 18; TEMP 36.9; O2SAT 98
[2021-07-02] MEDS: Mesalamine 400 MG CAP.DRTAB. 800 MG PO (08:56)
[2021-07-02 08:57] VITALS: BP 152/96; PULSE 64
[2021-07-02] MEDS: Metoprolol Tartrate 50 MG TABLET PO (08:57)
[2021-07-02] MEDS: Cyanocobalamin (Vitamin B-12) 1,000 MCG TABLET 1000 MCG PO (08:57)
[2021-07-02] MEDS: Gabapentin 100 MG CAPSULE PO (08:57)
[2021-07-02] MEDS: amLODIPine Besylate 5 MG TABLET PO (08:57)
[2021-07-02] MEDS: Lidocaine 4 % Patch ADH..PATCH 1 PATCH TRANSDERMA (08:57)
[2021-07-02] MEDS: Ferrous Sulfate 324 MG TABLET.DR PO (08:57)
[2021-07-02] MEDS: methADONE HCl 20 MG/2 ML ORAL.CONC 40 MG PO (08:58)
[2021-07-02] MEDS: Ketotifen Fumarate 0.025% Oph 5 ML DRPBTL 1 DROP EYE-BOTH (09:04)
--- NOTE | 2021-07-02 10:27 | P.DS_ITS ---
DS: Providers Provider Date of Service: 07/02/21 Date of admission: 06/30/21 15:13 Primary care physician: [facility] Consults: 06/30/21 12:02 Consult to Gastroenterology Routine Consulting Provider: Ramila Turner Reason for consultation: abdominal pain Has provider been notified: No DS: Diagnosis Discharge Diagnosis (1) Abdominal pain: Status: Acute (2) Ulcerative colitis: Status: Acute (3) Colitis: Status: Acute (4) HTN (hypertension): Status: Acute (5) HLD (hyperlipidemia): Status: Acute (6) Constipation: Status: Acute DS: Medications Discharge Medications Home Medications: Home Medications Medication Instructions Recorded Confirmed felodipine 5 mg tablet,extended 1 tab PO DAILY 03/03/21 06/30/21 release 24 hr gabapentin 100 mg capsule 1 cap PO TID 03/03/21 06/30/21 ketotifen fumarate 0.025 % (0.035 1 drp OPHTHALMIC (EYE) BID 03/03/21 06/30/21 %) eye drops lidocaine 5 % topical patch 1 patch TOPICAL DAILY 03/03/21 06/30/21 mesalamine 400 mg capsule (with 2 cap PO TID 03/03/21 06/30/21 delayed release tablets inside) metoprolol tartrate 50 mg tablet 1 tab PO BID 03/03/21 06/30/21 pantoprazole 40 mg tablet,delayed 1 tab PO DAILY@0630 03/03/21 06/30/21 release rosuvastatin 40 mg tablet 1 tab PO BEDTIME 03/03/21 06/30/21 zolpidem 10 mg tablet 1 tab PO BEDTIME 03/03/21 06/30/21 methadone 10 mg/mL oral 40 mg PO DAILY 03/04/21 06/30/21 concentrate (Methadone Intensol) clotrimazole 1 % topical cream 1 appl TOPICAL BID PRN 06/30/21 06/30/21 cyanocobalamin (vitamin B-12) 1 tab PO QAM 06/30/21 06/30/21 1,000 mcg tablet ferrous gluconate 324 mg (38 mg 1 tab PO QAM 06/30/21 06/30/21 iron) tablet DS: Summary Hospital Course Hospital Course: This is a 56-year-old male with past medical history of ulcerative colitis status post total colectomy with ileal pouch and anastomosis in 2007, chronic kidney disease, with a baseline creatinine of 2, depression and hypertension presents to the hospital with complaints of abdominal pain. Nausea vomiting, CT of the abdomen showed thickening around the anastomosis, and patient was treated with Levaquin and Flagyl. Patient's symptoms improved, he was evaluated by GI who recommended continuing Flagyl and Levaquin for the next 7 days. Patient able to tolerate p.o., he will be discharged home on 7 day course of Levaquin and Flagyl. Continue mesalamine. Time Spent with Patient Time attestation: Total time spent providing and/or coordinating discharge services: Discharge coordination time: Greater than 30 minutes Quality: Stroke Does the patient have a stroke diagnosis?: No Physical Exam Vital Signs: Vital Signs: Last Vital Signs Temp 98.4 F 07/02/21 08:00 Pulse 64 07/02/21 08:57 Resp 18 07/02/21 08:00 BP 152/96 H 07/02/21 08:57 Pulse Ox 98 07/02/21 08:00 Body Mass Index 31.0 Const: General: cooperative and no acute distress Resp: Effort & Inspection: normal respiratory effort, able to speak in complete sentences and abnormal respiratory pattern Auscultation: clear to auscultation bilaterally Cardio: Rate: regular rate Rhythm: regular rhythm GI: Palpation (GI): Soft to palpation Auscultation: normal bowel sounds DS: Data Data Completed and Pending Labs on day of discharge: Laboratory Results - last 24 hr 07/01/21 10:55 C. difficile Tox B Gene NEGATIVE Discharge Plan Discharge Patient Disposition: Home, Self-Care Discharge Diagnosis: Colitis Referrals: [facility] [Primary Care Provider] - 1 Week Ramila Turner MD [Physician] - 1 Week Discharge Medications: New metronidazole [Flagyl] 500 mg tablet 500 mg PO BID 7 Days Qty: 14 RF: 0 levofloxacin 750 mg tablet 750 mg PO DAILY 7 Days Qty: 7 RF: 0 polyethylene glycol 3350 [Miralax] 17 gram/dose powder 17 g PO DAILY 30 Days Qty: 510 RF: 0 Continued ketotifen fumarate 0.025 % (0.035 %) drops 1 drp ophthalmic (eye) BID RF: 0 felodipine 5 mg tablet extended release 24 hr 1 tab PO DAILY RF: 0 pantoprazole 40 mg tablet,delayed release (DR/EC) 1 tab PO DAILY@0630 RF: 0 lidocaine 5 % adhesive patch,medicated 1 patch topical DAILY RF: 0 metoprolol tartrate 50 mg tablet 1 tab PO BID RF: 0 gabapentin 100 mg capsule 1 cap PO TID RF: 0 zolpidem 10 mg tablet 1 tab PO BEDTIME RF: 0 mesalamine 400 mg capsule (with del rel tablets) 2 cap PO TID RF: 0 rosuvastatin 40 mg tablet 1 tab PO BEDTIME RF: 0 methadone [Methadone Intensol] 10 mg/mL Concentrate 40 mg PO DAILY RF: 0 cyanocobalamin (vitamin B-12) 1,000 mcg tablet 1 tab PO QAM RF: 0 ferrous gluconate 324 mg (38 mg iron) tablet 1 tab PO QAM RF: 0 clotrimazole 1 % cream 1 appl topical BID PRN (Reason: Rash) RF: 0 Discharge Orders: Discharge Order (Routine); Ordered 07/02/21 Ordered By: Beatrice Dias Diet: advance to usual diet and other Activity on Discharge: As tolerated Stand Alone Forms: Patient Portal Discharge page Care Plan Goals: Avoid hospitalilzation follow up with PCP follow up with rigger chief Health Concerns: Colitis flare Plan of Treatment: You were admitted and treated for acute colitis. You received IV antibiotics and pain medications Assessment: Please continue your antibiotics for 7 days follow up with gastroenterology in 7 days Discharge Date/Time: 07/02/21 12:02
[2021-07-02 10:52] VITALS: BP 143/93; PULSE 65; RESP 20; TEMP 36.2; O2SAT 99
--- NOTE | 2021-07-02 10:53 | PC.NURSE ---
Skin assessment completed today. No skin issues noted. Patient being discharged today.
--- NOTE | 2021-07-02 11:10 | MHC.CM.PN ---
Addendum entered by Ximena Villegas 07/02/21 11:44: CM INFORMED PT DID NOT HAVE TRANSPORTATION HOME. CM CONTACTED [facility] AND WAS INFORMED THEY COULD TAKE THE PT HOME AT 1200 HOURS. CM BROUGHT A SHUTTLE VOUCHER TO THE PT AND INFORMED HIM OF THE TIME. HE REPORTED BEING CONCERNED THAT HE WOULD NOT BE ABLE TO GO TO THE [facility] TODAY TO BOWL SANDER HIS WEEKS WORTH OF MEDICATION. [facility] STAYED WITH PT WHILE HE CALLED [facility]. THE NURSE AT [facility] INFORMED THE PT HE SHOULD GO TO THE CLINIC TOMORROW MORNING. PT WILL DC HOME TODAY AND RESUME OP [facility] TOMORROW PT WILL TAKE THE [facility] AT 1200 Original Note: PT CLEARED TO DC HOME TODAY WITH NO SERVICES
== END 2021-07-02 12:02 | disposition home or self-care (01) | DRG 245 ==
LOC: HO.ED 11:57 → HO.EDOVER 16:02 → HO.S3 16:17
PROVIDERS: Admitting Provider Internal Medicine; Emergency Provider Emergency Medicine; Visit Provider Internal Medicine
DX: K51.90 Ulcerative colitis, unspecified, without complications (principal); N18.30 Chronic kidney disease, stage 3 unspecified; F11.20 Opioid dependence, uncomplicated; K59.00 Constipation, unspecified; I12.9 Hypertensive chronic kidney disease with stage 1 through stage 4 chronic kidney disease, or unspecified chronic kidney disease; D63.1 Anemia in chronic kidney disease; E78.5 Hyperlipidemia, unspecified; Z20.822 Contact with and (suspected) exposure to COVID-19; Z79.899 Other long term (current) drug therapy
CPT/HCPCS: 36415; 74176; 80048; 80076; 83690; 83735; 85025; 85027; 87493; 87635; 93005; 96365; 96375; 96376; 99218; 99285; J1956; J2270; J2405; J2920

== ENCOUNTER 2021-07-31 08:44 | Emergency (ER) | payer MEDICAID, SELFPAY ==
--- NOTE | ~2021-07-31 | CT_ITS ---
EXAMINATION: CT ABDOMEN AND PELVIS WITHOUT CONTRAST CLINICAL INFORMATION: Abdominal pain COMPARISON: Previous CT scans most recent June 2021 TECHNIQUE: Multidetector volumetric imaging was performed from the superior aspect of the liver through the pubic symphysis. Sagittal and coronal reformatted images were obtained on the technologist's workstation. This CT examination was performed using dose optimization techniques as appropriate, variously including the following: *Automated exposure control *Adjustment of mA and/or kV according to patient size (this includes techniques or standardized protocols for targeted exams where dose is matched to indication/reason for exam; i.e. extremities or head) *Use of iterative reconstruction technique DLP: 1059 mGy-cm FINDINGS: LUNG BASES: The visualized lung bases are unremarkable. LIVER, GALLBLADDER, AND BILIARY TREE: The liver is normal in size, shape, and attenuation. No focal hepatic lesion or biliary ductal dilatation is present. The gallbladder is unremarkable with no evidence of radiopaque gallstones, gallbladder wall thickening, or obvious pericholecystic inflammatory changes. PANCREAS: Unremarkable. SPLEEN: There is a small calcification in the spleen. ADRENAL GLANDS: Unremarkable. KIDNEYS AND URETERS: The kidneys are normal in size, shape, and attenuation. No hydronephrosis, hydroureter, or calculi seen. No perinephric stranding. BLADDER: Unremarkable. GASTROINTESTINAL TRACT: There are postsurgical changes, again question total colectomy and ileoanal anastomosis. The distal small bowel in the pelvis proximal to the ileoanal anastomosis appears dilated and filled and filled stool. There is wall thickening at the ileoanal anastomosis, stranding of the surrounding fat and some thickening of the soft tissues in the presacral space. This all appears unchanged from prior exams. There is more proximal small bowel dilatation with air-fluid levels seen. Again small bowel loops are located in the right side of the abdomen. This is unchanged from previous exams. No free fluid or free air is seen. ABDOMINAL WALL: There is previous ventral hernia repair with mesh. No recurrent hernia is seen. LYMPH NODES: There is stable retroperitoneal lymphadenopathy in the abdomen and pelvis. There is no ascites. VASCULAR: Unremarkable. PELVIC VISCERA: Uterus appears to have been removed. No pelvic mass is seen. OSSEOUS STRUCTURES: There are degenerative changes of the spine. There is increased sclerosis at sacroiliac joints suggestive of sacroiliitis. CT/CT abdomen pelvis wo con IMPRESSION: Postsurgical changes from probable total colectomy and ileoanal anastomosis. There are dilated stool-filled loops of distal small bowel proximal to the ileoanal anastomosis and wall thickening at the anastomosis and stranding of the adjacent fat. This is similar to prior exams. There is dilatation of more proximal loops of small bowel with air-fluid levels. Appearance is suggestive of distal small bowel obstruction at the ileoanal anastomosis.
--- NOTE | 2021-07-31 11:07 | ED_ITS ---
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 Mode of arrival: ambulatory Limitations: no limitations History of Present Illness MD elicited complaint: abdominal pain Pertinent past history: other (ulcerative colitis s/p total colectomy with pouch anastamosis previous bouts of pouchitis last one in june treated with levofloxacin and flagyl) Onset (ago): day(s) (2) Pain Consistency: constant Location: periumbilical Severity: similar to previous episodes Quality: stabbing Radiation: none Migration to: no migration Exacerbating factors: movement Relieving factors: nothing Context: history of similar episodes Associated symptoms: nausea and constipation Related Data Home Medications Medication Instructions Recorded Confirmed felodipine 5 mg tablet,extended 1 tab PO DAILY 03/03/21 07/31/21 release 24 hr gabapentin 100 mg capsule 1 cap PO TID 03/03/21 07/31/21 ketotifen fumarate 0.025 % (0.035 1 drp OPHTHALMIC (EYE) BID 03/03/21 07/31/21 %) eye drops lidocaine 5 % topical patch 1 patch TOPICAL DAILY 03/03/21 07/31/21 mesalamine 400 mg capsule (with 2 cap PO TID 03/03/21 07/31/21 delayed release tablets inside) metoprolol tartrate 50 mg tablet 1 tab PO BID 03/03/21 07/31/21 pantoprazole 40 mg tablet,delayed 1 tab PO DAILY@0630 03/03/21 07/31/21 release rosuvastatin 40 mg tablet 1 tab PO BEDTIME 03/03/21 07/31/21 zolpidem 10 mg tablet 1 tab PO BEDTIME 03/03/21 07/31/21 methadone 10 mg/mL oral 40 mg PO DAILY 03/04/21 06/30/21 concentrate (Methadone Intensol) clotrimazole 1 % topical cream 1 appl TOPICAL BID PRN 06/30/21 07/31/21 cyanocobalamin (vitamin B-12) 1 tab PO QAM 06/30/21 07/31/21 1,000 mcg tablet ferrous gluconate 324 mg (38 mg 1 tab PO QAM 06/30/21 07/31/21 iron) tablet Previous Rx's Medication Instructions Recorded polyethylene glycol 3350 17 17 g PO DAILY 30 Days #510 g 07/02/21 gram/dose oral powder (Miralax) levofloxacin 500 mg tablet 500 mg PO DAILY #7 tab 07/31/21 metronidazole 500 mg tablet 500 mg PO BID #14 tab 07/31/21 (Flagyl) pramoxine 1 % topical foam 1 appl OK BID #15 g 07/31/21 (Proctofoam) Allergies Allergy/AdvReac Type Severity Reaction Status Date / Time Iodinated Contrast Media Allergy Intermediate HIVES Verified 06/30/21 08:33 [IV CONTRAST] prednisone [PREDNISONE] Allergy Mild RASH Verified 06/30/21 08:33 prednisolone Allergy Unknown rash Verified 06/30/21 08:33 Review of Systems Review of Systems Constitutional : No Weight loss, No Fever, No Chills ENT/Mouth : No sore throat, No Rhinorrhea Eyes: No Swelling, No Redness Cardiovascular : No Chest Pain, No SOB, NoEdema Respiratory : No Cough, No Sputum, No Wheezing Gastrointestinal : Positive Nausea, no Vomiting, no Diarrhea, positive abdominal Pain, No Hematochezia, No Melena, pos constipation Genitourinary : No Dysuria, No Urinary Frequency, No Hematuria, No Urgency Musculoskeletal : No joint pain, No Myalgias, No Joint Swelling Skin : No Skin Lesions, No rash Neuro : No Weakness, No Numbness, No Dizziness, No Headache Psych : No Anxiety/Panic, No Depression Heme/Lymph: No Bruising, No Lymphadenopathy Endocrine : No Polyuria, No Polydipsia All other systems reviewed and are negative. Physical Exam Vital Signs: Vital Signs: Last Vital Signs Temp 98 F 07/31/21 11:14 Pulse 77 07/31/21 11:14 Resp 16 07/31/21 11:14 BP 179/109 H 07/31/21 11:14 Pulse Ox 98 07/31/21 11:14 Body Mass Index 32.5 Appearance: Alert. Oriented X3. No acute distress. Eyes: Pupils equal, round and reactive to light. ENT: Pharynx normal. Neck: Normal inspection. Neck supple. CVS: Normal heart rate and rhythm. Pulses normal. Respiratory: No respiratory distress. Breath sounds normal. Abdomen: Soft and no distention diffuse lower abdominal pain no rebound or guarding Skin: Skin warm and dry. Normal skin color. Normal skin turgor. Extremities: No lower extremity edema. No calf ttp Neuro: Oriented X 3. No motor deficit. No sensory deficit. Course Course Course Narrative: surgery has seen not consistent with bowel obstruction will discuss with GI - call to Dr. Lemon likely pouchitis at this time he has no n/v no WBC count I do no think he requires admission walking around ED, told GI he had BM yesterday, passing gas not consistent with obstruction and seen by Dr. Lopez in the ED who states no obstruction MDM - Abdominal Pain MDM Narrative Medical decision making narrative: 56 yo male with UC s/p colectomy here with recurrent abdominal pain reports constipation and no flatus for 2 days. Main complaint is pain, he is on methadone at home. At this time will need labs, CT scan for obstruction, IV dilaudid for pain, will discuss with GI results. Lab Data Result diagrams: 07/31/21 12:10 07/31/21 12:34 Labs: Lab Results 07/31/21 07/31/21 07/31/21 Range/Units 12:00 12:10 12:10 WBC 10.5 (4.8-10.8) X10*3/uL RBC 4.55 L D (4.60-5.80) X10*6/uL Hgb 12.2 L D (14.0-18.0) g/dl Hct 39.0 L D (42-52) % MCV 85.7 (80-98) fL MCH 26.8 L (27.0-33.0) pg MCHC 31.3 (31.0-36.0) g/dl RDW 15.6 (11.0-16.0) % Plt Count 257 (160-400) X10*3/uL MPV 9.3 L (9.4-12.4) fL Immature Gran % (Auto) 0.3 (0.0-0.4) % Neut % (Auto) 84.9 H (45-73) % Lymph % (Auto) 8.3 L (20-40) % [place] % (Auto) 6.1 (2-11) % Eos % (Auto) 0.3 (0-4) % Baso % (Auto) 0.1 (0-2) % Lymph # (Auto) 0.9 L (1.2-4.9) X10*3/uL [place] # (Auto) 0.6 (0.1-1.2) X10*3/uL Eos # (Auto) 0.0 (0.0-0.4) X10*3/uL Baso # (Auto) 0.0 (0.0-0.2) X10*3/uL Abs Immat Gran (auto) 0.03 (0.00-0.03) X10*3/uL Absolute Neuts (auto) 8.9 H (2.0-8.3) X10*3/uL Absolute Nucleated RBC 0.000 (0.0-0.012) X10*3/uL Nucleated RBC % (auto) 0.0 (0.0-0.2) /100WBC Sodium (135-145) mmol/L Potassium (3.3-5.1) mmol/L Chloride (96-108) mmol/L Carbon Dioxide (22-29) mmol/L Anion Gap (12-20) BUN (9-16) mg/dL Creatinine (0.5-1.4) mg/dL Estim Creat Clear Calc Estimated GFR Random Glucose (60-115) mg/dL Lactic Acid 1.2 (0.5-2.0) mmol/L Calcium (8.4-10.2) mg/dL Magnesium (1.6-2.6) mg/dL Total Bilirubin (0.0-1.0) mg/dL Direct Bilirubin (0.0-0.5) mg/dL AST (5-37) U/L ALT (0-40) U/L Alkaline Phosphatase (39-117) U/L Total Protein (6.5-8.0) g/dL Albumin (3.5-5.0) g/dL Lipase (8-78) U/L COVID-19 (NANCY) Negative (Negative) COVID-19 Clin Com See Note 07/31/21 Range/Units 12:34 WBC (4.8-10.8) X10*3/uL RBC (4.60-5.80) X10*6/uL Hgb (14.0-18.0) g/dl Hct (42-52) % MCV (80-98) fL MCH (27.0-33.0) pg MCHC (31.0-36.0) g/dl RDW (11.0-16.0) % Plt Count (160-400) X10*3/uL MPV (9.4-12.4) fL Immature Gran % (Auto) (0.0-0.4) % Neut % (Auto) (45-73) % Lymph % (Auto) (20-40) % [place] % (Auto) (2-11) % Eos % (Auto) (0-4) % Baso % (Auto) (0-2) % Lymph # (Auto) (1.2-4.9) X10*3/uL [place] # (Auto) (0.1-1.2) X10*3/uL Eos # (Auto) (0.0-0.4) X10*3/uL Baso # (Auto) (0.0-0.2) X10*3/uL Abs Immat Gran (auto) (0.00-0.03) X10*3/uL Absolute Neuts (auto) (2.0-8.3) X10*3/uL Absolute Nucleated RBC (0.0-0.012) X10*3/uL Nucleated RBC % (auto) (0.0-0.2) /100WBC Sodium 137 (135-145) mmol/L Potassium 5.4 H D (3.3-5.1) mmol/L Chloride 105 (96-108) mmol/L Carbon Dioxide 20 L (22-29) mmol/L Anion Gap 17 (12-20) BUN 20 H (9-16) mg/dL Creatinine 2.04 H (0.5-1.4) mg/dL Estim Creat Clear Calc 47.0 Estimated GFR 34 Random Glucose 103 (60-115) mg/dL Lactic Acid (0.5-2.0) mmol/L Calcium 9.1 (8.4-10.2) mg/dL Magnesium 1.7 (1.6-2.6) mg/dL Total Bilirubin 0.2 (0.0-1.0) mg/dL Direct Bilirubin < 0.2 (0.0-0.5) mg/dL AST 24 D (5-37) U/L ALT 18 (0-40) U/L Alkaline Phosphatase 80 (39-117) U/L Total Protein 8.1 H (6.5-8.0) g/dL Albumin 4.0 (3.5-5.0) g/dL Lipase 48 (8-78) U/L COVID-19 (NANCY) (Negative) COVID-19 Clin Com Discharge Plan Discharge Clinical Impression: Ileal pouchitis Abdominal pain Qualifiers: Abdominal location: periumbilical Qualified Code(s): R10.33 - Periumbilical pain Patient Disposition: Home, Self-Care Instructions: Abdominal Pain (ED) Additional Instructions: return to ED for any worsening symptoms or concerns call your GI doctor this week Prescriptions: New metronidazole [Flagyl] 500 mg tablet 500 mg PO BID Qty: 14 RF: 0 levofloxacin 500 mg tablet 500 mg PO DAILY Qty: 7 RF: 0 pramoxine [Proctofoam] 1 % foam 1 appl OK BID Qty: 15 RF: 0 No Action ketotifen fumarate 0.025 % (0.035 %) drops 1 drp ophthalmic (eye) BID RF: 0 felodipine 5 mg tablet extended release 24 hr 1 tab PO DAILY RF: 0 pantoprazole 40 mg tablet,delayed release (DR/EC) 1 tab PO DAILY@0630 RF: 0 lidocaine 5 % adhesive patch,medicated 1 patch topical DAILY RF: 0 metoprolol tartrate 50 mg tablet 1 tab PO BID RF: 0 gabapentin 100 mg capsule 1 cap PO TID RF: 0 zolpidem 10 mg tablet 1 tab PO BEDTIME RF: 0 mesalamine 400 mg capsule (with del rel tablets) 2 cap PO TID RF: 0 rosuvastatin 40 mg tablet 1 tab PO BEDTIME RF: 0 methadone [Methadone Intensol] 10 mg/mL Concentrate 40 mg PO DAILY RF: 0 cyanocobalamin (vitamin B-12) 1,000 mcg tablet 1 tab PO QAM RF: 0 ferrous gluconate 324 mg (38 mg iron) tablet 1 tab PO QAM RF: 0 clotrimazole 1 % cream 1 appl topical BID PRN (Reason: Rash) RF: 0 polyethylene glycol 3350 [Miralax] 17 gram/dose powder 17 g PO DAILY 30 Days Qty: 510 RF: 0 PMFSH Past Medical History Attestation statement: The following information was validated with the patient. Medical History CKD (chronic kidney disease) Colitis Constipation Crohn's disease of both small and large intestine HLD (hyperlipidemia) HTN (hypertension) Ulcerative colitis Surgical History H/O cervical spine surgery H/O total colectomy History of colostomy reversal Family History Family History Mother Stroke Diabetes mellitus HTN (hypertension), benign Hyperlipidemia Brother Diabetes mellitus Social History Social History Household Members: None Housing: Other Housing Other:: Rents a room Do you presently have visiting nurse or other home services: No Alcohol intake: never Patient Tobacco Use Status: Never used Tobacco Substance Use Type: Heroin Advance Directives: Yes Advance Directives on File: Yes Advance Directives Date on File: 03/08/21 service: No Current occupational status: unemployed
[2021-07-31 11:14] VITALS: BP 179/109; PULSE 77; RESP 16; TEMP 36.6; O2SAT 98; BMI 32.5
[2021-07-31] MEDS: HYDROmorphone HCl 1 MG/ML SYRINGE IVPUSH ×2 (12:12→14:31)
[2021-07-31] MEDS: ondansetron HCL 4 MG/2 ML VIAL IVPUSH (12:12)
[2021-07-31] MEDS: 0.9 % Sodium Chloride 1,000 ML 999 ML IVCONT (12:13)
[2021-07-31 12:14] LABS: MANUAL DIFF FLAG NO
[2021-07-31 12:16] LABS: Basophils Percent Auto 0.1 % (0-2); Eosinophils Percent Auto 0.3 % (0-4); Hemoglobin 12.2 g/dl (14.0-18.0); Imm Gran Abs Auto 0.03 X10*3/uL (0.00-0.03); Imm Gran Pct Auto 0.3 % (0.0-0.4); Lymphocytes Absolute Auto 0.9 X10*3/uL (1.2-4.9); Lymphocytes Percent Auto 8.3 % (20-40); Mean Corpuscular HGB Conc 31.3 g/dl (31.0-36.0); Mean Corpuscular Hemoglobin 26.8 pg (27.0-33.0); Mean Corpuscular Volume 85.7 fL (80-98); Mean Platelet Volume 9.3 fL (9.4-12.4); Monocytes Absolute Auto 0.6 X10*3/uL (0.1-1.2); Monocytes Percent Auto 6.1 % (2-11); Neutrophils Absolute Auto 8.9 X10*3/uL (2.0-8.3); Neutrophils Percent Auto 84.9 % (45-73); Platelet Count 257 X10*3/uL (160-400); Red Blood Count 4.55 X10*6/uL (4.60-5.80); Red Cell Distribution Width 15.6 % (11.0-16.0); White Blood Count 10.5 X10*3/uL (4.8-10.8)
[2021-07-31 12:26] LABS: Lactic Acid 1.2 mmol/L (0.5-2.0)
[2021-07-31 12:32] LABS: COVID-19 Test Negative (Negative); IDNOW Serial# 08D9AD1C
--- NOTE | 2021-07-31 12:59 | MHC.RECOVSUP ---
Recovery Support note: Patient is a 56 year old [place] speaking male who presented to [facility] ED due to constipation and abdominal pain. This freelance writer met with patient to discuss his methadone dosing. Patient reports he goes to [facility] and gets 30mg. This freelance writer spoke with Anoop TOM at [facility] and she reports that patient was dosed 30mg on 07/29 and that he was provided with six take home bottles. Patient confirms this and reports that he took his bottle prior to coming to the hospital. If patient remains in the hospital, patient will need his methadone on 08/01. Verification form faxed to pharmacy.
[2021-07-31 13:16] LABS: Alanine Aminotransferase 18 U/L (0-40); Alkaline Phosphatase 80 U/L (39-117); Anion Gap 17 (12-20); Aspartate Amino Transferase 24 U/L (5-37); Bilirubin Direct < 0.2 mg/dL (0.0-0.5); Bilirubin Total 0.2 mg/dL (0.0-1.0); Blood Urea Nitrogen 20 mg/dL (9-16); Calcium 9.1 mg/dL (8.4-10.2); Carbon Dioxide 20 mmol/L (22-29); Chloride 105 mmol/L (96-108); Estimated Glomerular Filt Rate 34; Glucose Random 103 mg/dL (60-115); Lipase 48 U/L (8-78); Magnesium 1.7 mg/dL (1.6-2.6); Potassium 5.4 mmol/L (3.3-5.1); Sodium 137 mmol/L (135-145); Total Protein 8.1 g/dL (6.5-8.0)
--- NOTE | 2021-07-31 14:35 | P.CONGS_ITS ---
History of Present Illness Consult details Consult date: 07/31/21 Narrative: 56-year-old male seen in the ER because of abdominal pain. The patient has a history of ulcerative colitis, and underwent total colectomy with a diverting ileostomy in the in [facility]. He had the ileostomy eventually reversed and he has had a pouch since then. He said he has had problems with and constipation since the pouch. He seems that he has had worsening problems for the past several months now. He also had been admitted the hospital twice for abdominal pain last January and June,. He had a pouchoscopy with Dr. Mcallister for which showed suggestion of pouchitis. He has been on multiple courses of Cipro and Flagyl for this. He says he started abdominal pain today. He did state that he had bowel movements yesterday, as well as flatus. He says that his pain is mostly diffu se. He has had no nausea or vomiting. He denies any fever or chills. He says he has had no blood per rectum. Review of Systems Constitutional: Constitutional: Denies chills and Denies fever(s) Cardiovascular: Cardiovascular: Denies chest pain, Denies dyspnea and Denies dyspnea on exertion Respiratory: Respiratory: Denies cough, Denies dyspnea and Denies dyspnea on exertion Gastrointestinal: Gastrointestinal: Denies hematochezia and Denies change in bowel habits Genitourinary: Genitourinary: Denies hematuria and Denies difficulty urinating Musculoskeletal: Musculoskeletal: Denies back pain and Denies limited range of motion Neurologic: Denies focal weakness and Denies convulsions Psychiatric: Psychiatric: Denies depression and Denies mood swings [facility] Past Medical History Medical History CKD (chronic kidney disease) Colitis Constipation Crohn's disease of both small and large intestine HLD (hyperlipidemia) HTN (hypertension) Ulcerative colitis Family History Family History Mother Stroke Diabetes mellitus HTN (hypertension), benign Hyperlipidemia Brother Diabetes mellitus Surgical History Surgical History H/O cervical spine surgery H/O total colectomy History of colostomy reversal Social History Social History Household Members: None Housing: Other Housing Other:: Rents a room Do you presently have visiting nurse or other home services: No Alcohol intake: never Patient Tobacco Use Status: Never used Tobacco Substance Use Type: Heroin Advance Directives: Yes Advance Directives on File: Yes Advance Directives Date on File: 03/08/21 service: No Current occupational status: unemployed Meds Allergies Allergy/AdvReac Type Severity Reaction Status Date / Time Iodinated Contrast Media Allergy Intermediate HIVES Verified 06/30/21 08:33 [IV CONTRAST] prednisone [PREDNISONE] Allergy Mild RASH Verified 06/30/21 08:33 prednisolone Allergy Unknown rash Verified 06/30/21 08:33 Active Medications: Current Medications Pharmacy Consult (Consult Rx Perform Med Rec) 1 each MISCELLANE ONCE PRN PRN Reason: Consult order Home Medications Medication Instructions Recorded Confirmed Last Taken Type felodipine 5 mg tablet,extended 1 tab PO DAILY 03/03/21 07/31/21 06/30/21 History release 24 hr gabapentin 100 mg capsule 1 cap PO TID 03/03/21 07/31/21 06/30/21 History ketotifen fumarate 0.025 % (0.035 1 drp OPHTHALMIC (EYE) BID 03/03/21 07/31/21 06/30/21 History %) eye drops lidocaine 5 % topical patch 1 patch TOPICAL DAILY 03/03/21 07/31/21 03/02/21 History mesalamine 400 mg capsule (with 2 cap PO TID 03/03/21 07/31/21 06/30/21 History delayed release tablets inside) metoprolol tartrate 50 mg tablet 1 tab PO BID 03/03/21 07/31/21 06/30/21 History pantoprazole 40 mg tablet,delayed 1 tab PO DAILY@0630 03/03/21 07/31/21 06/30/21 History release rosuvastatin 40 mg tablet 1 tab PO BEDTIME 03/03/21 07/31/21 06/29/21 History zolpidem 10 mg tablet 1 tab PO BEDTIME 03/03/21 07/31/21 06/29/21 History methadone 10 mg/mL oral 40 mg PO DAILY 03/04/21 06/30/21 06/29/21 History concentrate (Methadone Intensol) clotrimazole 1 % topical cream 1 appl TOPICAL BID PRN 06/30/21 07/31/21 Unknown History cyanocobalamin (vitamin B-12) 1 tab PO QAM 06/30/21 07/31/21 06/30/21 History 1,000 mcg tablet ferrous gluconate 324 mg (38 mg 1 tab PO QAM 06/30/21 07/31/21 06/30/21 History iron) tablet Physical Exam Vital Signs: Vital Signs: Last Vital Signs Temp 98 F 07/31/21 11:14 Pulse 77 07/31/21 11:14 Resp 16 07/31/21 11:14 BP 179/109 H 07/31/21 11:14 Pulse Ox 98 07/31/21 11:14 Body Mass Index 32.5 Const: Other: Appears morbidly obese General: no acute distress Orientation/consciousness: patient oriented x3 Neck: Neck: Yes no lymphadenopathy Resp: Auscultation: clear to auscultation bilaterally Cardio: Rhythm: regular rhythm GI: Other: Distended but soft, long midline laparotomy scar and right-sided scar, mild tenderness diffusely Palpation (GI): Soft to palpation and no guarding Neuro: General: patient oriented x3 Results Labs Result diagrams: 07/31/21 12:10 07/31/21 12:34 Labs: Abnormal lab results 07/31/21 07/31/21 Range/Units 12:10 12:34 RBC 4.55 L D (4.60-5.80) X10*6/uL Hgb 12.2 L D (14.0-18.0) g/dl Hct 39.0 L D (42-52) % MCH 26.8 L (27.0-33.0) pg MPV 9.3 L (9.4-12.4) fL Neut % (Auto) 84.9 H (45-73) % Lymph % (Auto) 8.3 L (20-40) % Lymph # (Auto) 0.9 L (1.2-4.9) X10*3/uL Absolute Neuts (auto) 8.9 H (2.0-8.3) X10*3/uL Potassium 5.4 H D (3.3-5.1) mmol/L Carbon Dioxide 20 L (22-29) mmol/L BUN 20 H (9-16) mg/dL Creatinine 2.04 H (0.5-1.4) mg/dL Total Protein 8.1 H (6.5-8.0) g/dL Short CBC 07/31/21 Range/Units 12:10 WBC 10.5 (4.8-10.8) X10*3/uL Hgb 12.2 L D (14.0-18.0) g/dl Hct 39.0 L D (42-52) % Plt Count 257 (160-400) X10*3/uL BMP 07/31/21 12:34 Sodium 137 Potassium 5.4 H D Chloride 105 Carbon Dioxide 20 L BUN 20 H Creatinine 2.04 H Calcium 9.1 Liver Function 07/31/21 Range/Units 12:34 Total Bilirubin 0.2 (0.0-1.0) mg/dL Direct Bilirubin < 0.2 (0.0-0.5) mg/dL AST 24 D (5-37) U/L ALT 18 (0-40) U/L Alkaline Phosphatase 80 (39-117) U/L Albumin 4.0 (3.5-5.0) g/dL All other labs normal. Imaging Abdomen CT scan report/results: report reviewed and image reviewed CT scan - pelvis: report reviewed and image reviewed Assessment and Plan (1) Abdominal pain: Qualifiers: Abdominal location: periumbilical Qualified Code(s): R10.33 - Periumbilical pain Status: Acute He comes in today because of diffuse abdominal pain. He says that this is similar to his previous abdominal pain when he was admitted to the hospital. I have reviewed his CAT scan. This shows similar thickening of the area of the pouch and the ileal pouch-anal anastomosis seen on previous CT scan as well. There is however some small bowel dilatation proximal to this suggestive of ileus versus partial obstruction. Had bowel movements yesterday. Digital exam today shows a tight anal sphincter and low anastomosis with tenderness. He likely has pouchitis again at this time. I would recommend keeping him NPO for now. We can consult the GI service. I did tell him that if he continues to have recurrent problems, 1 option is to proceed with permanent ileostomy. He is against that at this time. I will follow along while he is in the hospital. Procedures Date of Service Date of Service: 07/31/21
== END 2021-07-31 14:40 | disposition home or self-care (01) ==
PROVIDERS: Emergency Provider Emergency Medicine
DX: K91.850 Pouchitis (principal); R10.33 Periumbilical pain; F11.90 Opioid use, unspecified, uncomplicated; I10 Essential (primary) hypertension; Z20.822 Contact with and (suspected) exposure to COVID-19; Z79.899 Other long term (current) drug therapy
CPT/HCPCS: 36415; 74176; 80048; 80076; 83605; 83690; 83735; 85025; 87040; 87635; 96361; 96374; 96375; 96376; 99283; 99284; J1170; J2405

== ENCOUNTER → 2021-08-09 10:11 | Outpatient (BNVA) | payer MEDICAID, SELFPAY | PROVIDERS: PCP Internal Medicine; Visit Provider Internal Medicine Gastroenterology ==

== ENCOUNTER 2021-08-19 11:51 | Observation (INO) | payer MEDICAID, SELFPAY ==
--- NOTE | ~2021-08-19 | CT_ITS ---
EXAMINATION: CT ABDOMEN AND PELVIS WITHOUT CONTRAST CLINICAL INFORMATION: Lower abdominal pain. Crohn's disease. COMPARISON: Previous CT scan of the abdomen and pelvis most recent July 2018 TECHNIQUE: Multidetector volumetric imaging was performed from the superior aspect of the liver through the pubic symphysis. Sagittal and coronal reformatted images were obtained on the technologist's workstation. This CT examination was performed using dose optimization techniques as appropriate, variously including the following: *Automated exposure control *Adjustment of mA and/or kV according to patient size (this includes techniques or standardized protocols for targeted exams where dose is matched to indication/reason for exam; i.e. extremities or head) *Use of iterative reconstruction technique DLP: 434 mGy-cm FINDINGS: LUNG BASES: The visualized lung bases are unremarkable. LIVER, GALLBLADDER, AND BILIARY TREE: The liver is normal in size, shape, and attenuation. No focal hepatic lesion or biliary ductal dilatation is present. The gallbladder is contracted. PANCREAS: Unremarkable. SPLEEN: There is a small calcification spleen. ADRENAL GLANDS: Unremarkable. KIDNEYS AND URETERS: The kidneys are normal in size, shape, and attenuation. No hydronephrosis, hydroureter, or calculi seen. No perinephric stranding. BLADDER: Unremarkable. GASTROINTESTINAL TRACT: There are postsurgical changes, again from question total colectomy and ileoanal anastomosis. There are dilated fluid-filled loops of proximal small bowel in the left mid and lower abdomen. More distal small bowel loops right side of the abdomen do not appear dilated. The previously identified dilated stool-filled distal small bowel at the ileoanal anastomosis on July 2021 exam is no longer seen. There is wall thickening at the ileoanal anastomosis and some stranding of the soft tissues in the presacral space that is unchanged. The stomach is dilated and fluid-filled. No free air or ascites is seen. ABDOMINAL WALL: There is evidence of previous ventral hernia repair with mesh. LYMPH NODES: There are small retroperitoneal lymph nodes and small bowel mesentery lymph nodes. VASCULAR: Unremarkable. PELVIC VISCERA: The prostate gland does not appear enlarged. OSSEOUS STRUCTURES: There are degenerative changes of the spine. Marked degenerative disc disease at L5-S1. There is increased sclerosis of the sacroiliac joints estimate of sacroiliitis. CT/CT abdomen pelvis wo con IMPRESSION: Dilated fluid-filled stomach and proximal small bowel suggestive of small bowel obstruction. Stable mild wall thickening and inflammatory changes at the ileoanal anastomosis.
--- NOTE | ~2021-08-19 | XR_ITS ---
EXAMINATION: XR ABDOMEN WITH DECUBITUS VIEWS CLINICAL INDICATION: Crohn's disease. Follow-up small bowel obstruction. COMPARISON: Previous CT of the abdomen and pelvis 08/19/2021 TECHNIQUE: Supine and upright views of the abdomen and pelvis FINDINGS: There are still dilated loops of small bowel and air-fluid levels. There may be slight interval decrease in small bowel dilatation compared to previous CT scan. There are surgical staple line in the pelvis. There is no evidence of free air. No calcifications are seen. Bony structures are unremarkable. XR/XR abdomen w decubitus IMPRESSION: Dilated small bowel and air-fluid levels. Small bowel loops may be slightly less dilated compared to 08/19/2021 CT scan.
[2021-08-19 12:19] VITALS: BP 145/99; PULSE 82; RESP 16; TEMP 36.7; O2SAT 95; BMI 31.0
--- NOTE | 2021-08-19 13:26 | ED_ITS ---
HPI - Abdominal Pain General Chief Complaint: Abdominal Pain Stated Complaint: ABD PAIN FOR 20 MINUTES PER EMS Time Seen by Provider: 08/19/21 13:17 Source: patient Limitations: no limitations History of Present Illness HPI narrative: This is a 56-year-old male with history of Crohn's disease who complains of abdominal pain that started yesterday. He says the pain is severe and constant, worse with movement. He denies any fever. Patient reports some nausea as well as vomiting at home.He has had a little diarrhea. Denies any blood in his stool. He denies any urinary symptoms. He states this is worse than prior episodes of Crohn's. He cannot say what medicines he is on for Crohn's but states he has been taking his medications. Pain is described as sharp, not worse with movement Related Data Home Medications Medication Instructions Recorded Confirmed felodipine 5 mg tablet,extended 1 tab PO DAILY 03/03/21 07/31/21 release 24 hr gabapentin 100 mg capsule 1 cap PO TID 03/03/21 07/31/21 mesalamine 400 mg capsule (with 2 cap PO TID 03/03/21 07/31/21 delayed release tablets inside) metoprolol tartrate 50 mg tablet 1 tab PO BID 03/03/21 07/31/21 pantoprazole 40 mg tablet,delayed 1 tab PO DAILY@0630 03/03/21 07/31/21 release rosuvastatin 40 mg tablet 1 tab PO BEDTIME 03/03/21 07/31/21 zolpidem 10 mg tablet 1 tab PO BEDTIME 03/03/21 07/31/21 clotrimazole 1 % topical cream 1 appl TOPICAL BID PRN 06/30/21 07/31/21 cyanocobalamin (vitamin B-12) 1 tab PO QAM 06/30/21 07/31/21 1,000 mcg tablet ferrous gluconate 324 mg (38 mg 1 tab PO QAM 06/30/21 07/31/21 iron) tablet methadone 10 mg/mL oral 28 mg PO DAILY ml 08/09/21 concentrate (Methadone Intensol) Previous Rx's Medication Instructions Recorded pramoxine 1 % topical foam 1 appl SD BID #15 g 07/31/21 (Proctofoam) tinidazole 500 mg tablet 500 mg PO BID 10 Days #20 tab 08/09/21 Allergies Allergy/AdvReac Type Severity Reaction Status Date / Time Iodinated Contrast Media Allergy Intermediate HIVES Verified 06/30/21 08:33 [IV CONTRAST] prednisone [PREDNISONE] Allergy Mild RASH Verified 06/30/21 08:33 prednisolone Allergy Unknown rash Verified 06/30/21 08:33 Review of Systems Review of Systems Yes all other systems are reviewed and are negative Constitutional: Reports as per HPI and Denies fever(s) Eyes: Reports as per HPI and Reports no additional eye complaints Reports system reviewed and no additional complaints, except as documented, Reports as per HPI, Denies nasal congestion, Denies nasal discharge and Denies sore throat Cardiovascular: Reports as per HPI, Denies chest pain and Denies dyspnea Respiratory: Reports as per HPI, Denies cough and Denies dyspnea Gastrointestinal: Reports as per HPI, Reports abdominal pain, Reports diarrhea and Denies vomiting Genitourinary: Reports as per HPI, Denies hematuria, Denies dysuria and Denies urinary frequency Musculoskeletal: Reports no additional musculoskeletal complaints and Denies numbness Skin/Breast: Reports as per HPI and Denies rash Reports as per HPI, Denies focal weakness, Denies numbness and Denies Sensory deficit (Neuro) Psychiatric: Reports no additional psychiatric complaints and Reports as per HPI Endocrine: Reports no additional endocrine complaints and Reports as per HPI Hematologic/Lymphatic: Reports no additional hematologic/lymphatic complaints, Reports as per HPI and Reports other (No peripheral edema) Physical Exam 2 Vital Signs: Vital Signs: Last Vital Signs Temp 98.9 F 08/19/21 16:35 Pulse 69 08/19/21 20:37 Resp 16 08/19/21 20:37 BP 138/86 08/19/21 20:37 Pulse Ox 95 08/19/21 20:37 Body Mass Index 31.0 Const: General: cooperative, no acute distress and alert Orientation/consciousness: patient oriented x3 HENMT: Head: Yes normal to inspection Eyes: General: appearance normal, both eyes and all related structures Eyelids: Yes eyelids normal Conjunctivae: conjunctivae normal Pupils: Equal, round and reactive pupils present Neck: Neck: Yes normal visual inspection and Yes supple Chest: Chest palpation & inspection: normal inspection of the chest Resp: Effort & Inspection: normal respiratory effort Auscultation: clear to auscultation bilaterally Cardio: Rate: regular rate Rhythm: regular rhythm Heart sounds: S1 normal heart sound present, S2 normal heart sound present, no gallops, no murmurs and no rubs GI: Inspection: Yes distended (Mild) Palpation (GI): Soft to palpation, Tenderness to palpation present (GI) (Diffusely, worse lower quadrant) and Other GI palpation findings present (Non-distended) Auscultation: bowels sounds not normal and Absent bowel sounds Skin: General skin exam: no rashes or lesions noted Neuro: General: patient oriented x3, no focal motor deficits and CN's II-XI intact bilaterally Cranial nerves: Yes Equal, round and reactive pupils present Cognition (Neuro): normal cognition Motor exam (neuro): 5/5 motor strength present throughout Sensory Exam: No Sensory deficit (Neuro) Extrem: General: Yes normal to inspection and Yes no pedal edema Psych: Appearance: grossly normal Affect: normal affect Procedures EJ/Peripheral Line Neck R: Time Out Performed: Yes Skin Cleansed in Sterile Fashion: Yes Size (gauge): 20 IV Secured and Dressing Applied: Yes Patient Tolerated Procedure: well Additional Comments: EJ by ED MD MDM - Abdominal Pain MDM Narrative Medical decision making narrative: Review the patient's records reveals he has been seen in the ED as recently as June for abdominal pain, was found to have colitis. Patient did follow-up with Gastroenterology and was put on tinidazole. Patient had previously been on Asacol without improvement. Patient has been treated in the past with Cipro and Flagyl. Patient was not vomiting in the ED, reported some nausea and few episodes of vomiting at home, a CT scan of the abdomen pelvis did show evidence of possible small bowel obstruction. Upon re-evaluation patient did have mild hyperactive bowel sounds but they are not high-pitched heard tinkly. Case was discussed with Dr. Lopez as who initially felt that the patient could be admitted to Medicine, given his Crohn's disease. Medicine however felt the patient should be admitted to surgery since he seemed to primarily have small-bowel obstruction Medical Records Attestation: I reviewed the patient's medical records. Lab Data Attestation: I reviewed the patient's lab results. Result diagrams: 08/19/21 16:08 08/19/21 16:08 Labs: Lab Results 08/19/21 08/19/21 08/19/21 Range/Units 14:21 14:21 16:08 WBC Cancelled RBC Cancelled Hgb Cancelled Hct Cancelled MCV Cancelled MCH Cancelled MCHC Cancelled RDW Cancelled Plt Count Cancelled MPV Cancelled Immature Gran % (Auto) Cancelled Neut % (Auto) Cancelled Lymph % (Auto) Cancelled [place] % (Auto) Cancelled Eos % (Auto) Cancelled Baso % (Auto) Cancelled Lymph # (Auto) Cancelled [place] # (Auto) Cancelled Eos # (Auto) Cancelled Baso # (Auto) Cancelled Abs Immat Gran (auto) Cancelled Absolute Neuts (auto) Cancelled Absolute Nucleated RBC Cancelled Nucleated RBC % (auto) Cancelled Smear Tech's Comments Cancelled Sodium 139 (135-145) mmol/L Potassium 4.2 D (3.3-5.1) mmol/L Chloride 100 (96-108) mmol/L Carbon Dioxide 29 (22-29) mmol/L Anion Gap 14 (12-20) BUN 26 H (9-16) mg/dL Creatinine 1.48 H (0.5-1.4) mg/dL Estim Creat Clear Calc 63.4 Estimated GFR 49 Random Glucose 117 H (60-115) mg/dL Calcium 9.2 (8.4-10.2) mg/dL Total Bilirubin 0.5 (0.0-1.0) mg/dL AST 18 (5-37) U/L ALT 11 (0-40) U/L Alkaline Phosphatase 62 D (39-117) U/L Total Protein 7.7 (6.5-8.0) g/dL Albumin 3.9 (3.5-5.0) g/dL Urine Color YELLOW Urine Appearance HAZY Urine pH 6.0 (5.0-8.0) Ur Specific [place] >= 1.030 H (1.005-1.025) Urine Protein 2+ H (NEG-TRACE) MG/DL Urine Glucose (UA) NEG (NEG) MG/DL Urine Ketones NEG (NEG) MG/DL Urine Blood TRACE (NEG) Urine Nitrite NEG (NEG) Ur Leukocyte Esterase NEG (NEG) Urine RBC 1-4 (0) /HPF Urine WBC 0-2 (0-4) /HPF Ur Squamous Epith Cells TRACE /LPF Urine Bacteria 1+ /LPF Hyaline Casts 0-2 /LPF 08/19/21 Range/Units 16:08 WBC 9.8 RBC 4.22 L Hgb 11.3 L Hct 36.0 L MCV 85.3 MCH 26.8 L MCHC 31.4 RDW 15.8 Plt Count 288 MPV 9.3 L Immature Gran % (Auto) 0.4 Neut % (Auto) 83.9 H Lymph % (Auto) 7.4 L [place] % (Auto) 8.2 Eos % (Auto) 0.0 Baso % (Auto) 0.1 Lymph # (Auto) 0.7 L [place] # (Auto) 0.8 Eos # (Auto) 0.0 Baso # (Auto) 0.0 Abs Immat Gran (auto) 0.04 H Absolute Neuts (auto) 8.2 Absolute Nucleated RBC 0.000 Nucleated RBC % (auto) 0.0 Smear Tech's Comments Sodium (135-145) mmol/L Potassium (3.3-5.1) mmol/L Chloride (96-108) mmol/L Carbon Dioxide (22-29) mmol/L Anion Gap (12-20) BUN (9-16) mg/dL Creatinine (0.5-1.4) mg/dL Estim Creat Clear Calc Estimated GFR Random Glucose (60-115) mg/dL Calcium (8.4-10.2) mg/dL Total Bilirubin (0.0-1.0) mg/dL AST (5-37) U/L ALT (0-40) U/L Alkaline Phosphatase (39-117) U/L Total Protein (6.5-8.0) g/dL Albumin (3.5-5.0) g/dL Urine Color Urine Appearance Urine pH (5.0-8.0) Ur Specific [place] (1.005-1.025) Urine Protein (NEG-TRACE) MG/DL Urine Glucose (UA) (NEG) MG/DL Urine Ketones (NEG) MG/DL Urine Blood (NEG) Urine Nitrite (NEG) Ur Leukocyte Esterase (NEG) Urine RBC (0) /HPF Urine WBC (0-4) /HPF Ur Squamous Epith Cells /LPF Urine Bacteria /LPF Hyaline Casts /LPF Imaging Data CT scan - abdomen: Radiologist's impression: Dilated fluid-filled stomach and proximal small bowel suggestive of small bowel obstruction. Stable mild wall thickening and inflammatory changes at the ileoanal anastomosis. Discharge Plan Discharge Clinical Impression: Abdominal pain, SBO (small bowel obstruction) Patient Disposition: Admitted as Observation [facility] Past Medical History Medical History (Updated 08/19/21 @ 18:23 by Jericho Garcia MD) CKD (chronic kidney disease) Colitis Constipation Crohn's disease of both small and large intestine HLD (hyperlipidemia) HTN (hypertension) Ulcerative colitis Surgical History (Updated 08/09/21 @ 10:12 by CACHORRO [place]) H/O cervical spine surgery H/O total colectomy History of colostomy reversal History of esophagogastroduodenoscopy (EGD) Hx of colonoscopy Family History Family History Mother Stroke Diabetes mellitus HTN (hypertension), benign Hyperlipidemia Brother Diabetes mellitus Social History Social History Household Members: None Housing: Other Housing Other:: Rents a room Do you presently have visiting nurse or other home services: No Alcohol intake: never Patient Tobacco Use Status: Never used Tobacco Substance Use Type: Heroin Advance Directives: Yes Advance Directives on File: Yes Advance Directives Date on File: 03/08/21 service: No Current occupational status: unemployed
[2021-08-19 14:33] LABS: Appearance Urine HAZY; Color Urine YELLOW; Glucose Urine UA NEG (NEG); Leukocyte Esterase Urine NEG (NEG); Nitrite Urine NEG (NEG); Specific Gravity - Urine >= 1.030 (1.005-1.025); UACC Culture Trigger NO; Urine Blood TRACE (NEG); Urine Ketones NEG (NEG); Urine Protein 2+ MG/DL (NEG-TRACE)
[2021-08-19 14:52] LABS: Bacteria Urine 1+ /LPF; Squamous Epithelial Cell Urine TRACE /LPF; WBC Urine 0-2 /HPF (0-4)
[2021-08-19 14:53] LABS: Hyaline Casts Urine 0-2 /LPF
[2021-08-19] MEDS: ondansetron HCL 4 MG/2 ML VIAL IVPUSH ×2 (15:28→18:57)
[2021-08-19] MEDS: Morphine Sulfate 4 MG/ML CARTRIDGE IVPUSH ×2 (15:28→18:57)
[2021-08-19] MEDS: 0.9 % Sodium Chloride 1,000 ML 999 ML IV (15:28)
[2021-08-19 15:35] VITALS: BP 166/101; PULSE 80; RESP 16; O2SAT 94
--- NOTE | 2021-08-19 15:36 | PC.NURSE ---
md amato initiates ij r neck. pt abd is soft and nontender with no discoloration, no bruit noted. no facial grimace or abd guarding. appears to nod of but easily arousable.
[2021-08-19 16:11] LABS: MANUAL DIFF FLAG NO
[2021-08-19 16:13] LABS: Basophils Percent Auto 0.1 % (0-2); Hemoglobin 11.3 g/dl (14.0-18.0); Imm Gran Abs Auto 0.04 X10*3/uL (0.00-0.03); Imm Gran Pct Auto 0.4 % (0.0-0.4); Lymphocytes Absolute Auto 0.7 X10*3/uL (1.2-4.9); Lymphocytes Percent Auto 7.4 % (20-40); Mean Corpuscular HGB Conc 31.4 g/dl (31.0-36.0); Mean Corpuscular Hemoglobin 26.8 pg (27.0-33.0); Mean Corpuscular Volume 85.3 fL (80-98); Mean Platelet Volume 9.3 fL (9.4-12.4); Monocytes Absolute Auto 0.8 X10*3/uL (0.1-1.2); Monocytes Percent Auto 8.2 % (2-11); Neutrophils Absolute Auto 8.2 X10*3/uL (2.0-8.3); Neutrophils Percent Auto 83.9 % (45-73); Platelet Count 288 X10*3/uL (160-400); Red Blood Count 4.22 X10*6/uL (4.60-5.80); Red Cell Distribution Width 15.8 % (11.0-16.0); White Blood Count 9.8 X10*3/uL (4.8-10.8)
[2021-08-19 16:31] LABS: Alanine Aminotransferase 11 U/L (0-40); Albumin Level 3.9 g/dL (3.5-5.0); Alkaline Phosphatase 62 U/L (39-117); Anion Gap 14 (12-20); Aspartate Amino Transferase 18 U/L (5-37); Bilirubin Total 0.5 mg/dL (0.0-1.0); Blood Urea Nitrogen 26 mg/dL (9-16); Calcium 9.2 mg/dL (8.4-10.2); Carbon Dioxide 29 mmol/L (22-29); Chloride 100 mmol/L (96-108); Creatinine Clr Calc Pharmacy 63.4; Estimated Glomerular Filt Rate 49; Glucose Random 117 mg/dL (60-115); Potassium 4.2 mmol/L (3.3-5.1); Sodium 139 mmol/L (135-145); Total Protein 7.7 g/dL (6.5-8.0)
[2021-08-19 16:35] VITALS: BP 175/107; PULSE 77; RESP 18; TEMP 37.2; O2SAT 97
--- NOTE | 2021-08-19 17:11 | PC.NURSE ---
pt resting comfortably, awaiting ct report.
--- NOTE | 2021-08-19 18:41 | PC.NURSE ---
pt reports p[ain back up to 04/22. md amato has spoken with surgery regarding admission, pt is updated as to plan of care.
[2021-08-19] MEDS: 0.9 % Sodium Chloride 1,000 ML 80 ML IVCONT (20:36)
[2021-08-19] MEDS: Heparin Sodium,Porcine 5,000 UNIT/ML VIAL 5000 UNIT SUBCUT (20:36)
[2021-08-19 20:37] VITALS: BP 138/86; PULSE 69; RESP 16; O2SAT 95
--- NOTE | 2021-08-19 20:47 | PC.NURSE ---
pt a&o no sob or chest pain. pt having loose stool at this time, provider is aware. Will continue to monitor. medicated per jan.
--- NOTE | 2021-08-19 22:11 | PM.IMHP ---
History of Present Illness Date of Service: 08/19/21 Chief Complaint: abdominal pain PMFSH Medical History (Updated 08/19/21 @ 18:23 by Jericho Garcia MD) CKD (chronic kidney disease) Colitis Constipation Crohn's disease of both small and large intestine HLD (hyperlipidemia) HTN (hypertension) Ulcerative colitis Family History Mother Stroke Diabetes mellitus HTN (hypertension), benign Hyperlipidemia Brother Diabetes mellitus Surgical History (Updated 08/09/21 @ 10:12 by CACHORRO [place]) H/O cervical spine surgery H/O total colectomy History of colostomy reversal History of esophagogastroduodenoscopy (EGD) Hx of colonoscopy Social History Household Members: None Housing: Other Housing Other:: Rents a room Do you presently have visiting nurse or other home services: No Alcohol intake: never Patient Tobacco Use Status: Never used Tobacco Substance Use Type: Heroin Advance Directives: Yes Advance Directives on File: Yes Advance Directives Date on File: 03/08/21 service: No Current occupational status: unemployed Meds Allergies Allergy/AdvReac Type Severity Reaction Status Date / Time Iodinated Contrast Media Allergy Intermediate HIVES Verified 06/30/21 08:33 [IV CONTRAST] prednisone [PREDNISONE] Allergy Mild RASH Verified 06/30/21 08:33 prednisolone Allergy Unknown rash Verified 06/30/21 08:33 Active Medications: Current Medications Heparin Sodium (Porcine) (Heparin Sodium,Porcine 5,000 Unit/Ml Vial) 5,000 unit SUBCUT Q8H COUNT INCLUDES THE [facility] Last Admin: 08/19/21 20:36 Dose: 5,000 unit Documented by: Sodium Chloride (Ns) 1,000 mls @ 80 mls/hr IVCONT .[id number] COUNT INCLUDES THE [facility] Last Admin: 08/19/21 20:36 Dose: 80 mls/hr Documented by: Morphine Sulfate (Morphine Sulfate 4 Mg/Ml Cartridge) 3 mg IVPUSH Q3H PRN; Protocol PRN Reason: pain, severe Sodium Chloride (0.9 % Sodium Chloride Flush 3 Ml Syringe) 3 ml IVFLUSH QSHIFT COUNT INCLUDES THE [facility] Zolpidem Tartrate (Zolpidem Tartrate 5 Mg Tablet) 5 mg PO BEDTIME PRN PRN Reason: Insomnia Home Medications Medication Instructions Recorded Confirmed Last Taken Type felodipine 5 mg tablet,extended 1 tab PO DAILY 03/03/21 07/31/21 06/30/21 History release 24 hr gabapentin 100 mg capsule 1 cap PO TID 03/03/21 07/31/21 06/30/21 History mesalamine 400 mg capsule (with 2 cap PO TID 03/03/21 07/31/21 06/30/21 History delayed release tablets inside) metoprolol tartrate 50 mg tablet 1 tab PO BID 03/03/21 07/31/21 06/30/21 History pantoprazole 40 mg tablet,delayed 1 tab PO DAILY@0630 03/03/21 07/31/21 06/30/21 History release rosuvastatin 40 mg tablet 1 tab PO BEDTIME 03/03/21 07/31/21 06/29/21 History zolpidem 10 mg tablet 1 tab PO BEDTIME 03/03/21 07/31/21 06/29/21 History clotrimazole 1 % topical cream 1 appl TOPICAL BID PRN 06/30/21 07/31/21 Unknown History cyanocobalamin (vitamin B-12) 1 tab PO QAM 06/30/21 07/31/21 06/30/21 History 1,000 mcg tablet ferrous gluconate 324 mg (38 mg 1 tab PO QAM 06/30/21 07/31/21 06/30/21 History iron) tablet methadone 10 mg/mL oral 28 mg PO DAILY ml 08/09/21 Unknown History concentrate (Methadone Intensol) Physical Exam Vital Signs and Narrative: Vital Signs: Last Vital Signs Temp 98.9 F 08/19/21 16:35 Pulse 69 08/19/21 20:37 Resp 16 08/19/21 20:37 BP 138/86 08/19/21 20:37 Pulse Ox 95 08/19/21 20:37 Body Mass Index 31.0 Results Labs CBC and Chem 7: 08/19/21 16:08 08/19/21 16:08 Labs: Laboratory Results - last 24 hr 08/19/21 08/19/21 08/19/21 14:21 14:21 16:08 MCV Cancelled MCH Cancelled MCHC Cancelled RDW Cancelled Plt Count Cancelled MPV Cancelled Immature Gran % (Auto) Cancelled Neut % (Auto) Cancelled Lymph % (Auto) Cancelled [place] % (Auto) Cancelled Eos % (Auto) Cancelled Baso % (Auto) Cancelled Lymph # (Auto) Cancelled [place] # (Auto) Cancelled Eos # (Auto) Cancelled Baso # (Auto) Cancelled Abs Immat Gran (auto) Cancelled Absolute Neuts (auto) Cancelled Absolute Nucleated RBC Cancelled Nucleated RBC % (auto) Cancelled Smear Tech's Comments Cancelled Anion Gap 14 Estim Creat Clear Calc 63.4 Estimated GFR 49 Random Glucose 117 H Calcium 9.2 Total Bilirubin 0.5 AST 18 ALT 11 Alkaline Phosphatase 62 D Total Protein 7.7 Albumin 3.9 Urine Color YELLOW Urine Appearance HAZY Urine pH 6.0 Ur Specific [place] >= 1.030 H Urine Protein 2+ H Urine Glucose (UA) NEG Urine Ketones NEG Urine Blood TRACE Urine Nitrite NEG Ur Leukocyte Esterase NEG Urine RBC 1-4 Urine WBC 0-2 Ur Squamous Epith Cells TRACE Urine Bacteria 1+ Hyaline Casts 0-2 08/19/21 16:08 MCV 85.3 MCH 26.8 L MCHC 31.4 RDW 15.8 Plt Count 288 MPV 9.3 L Immature Gran % (Auto) 0.4 Neut % (Auto) 83.9 H Lymph % (Auto) 7.4 L [place] % (Auto) 8.2 Eos % (Auto) 0.0 Baso % (Auto) 0.1 Lymph # (Auto) 0.7 L [place] # (Auto) 0.8 Eos # (Auto) 0.0 Baso # (Auto) 0.0 Abs Immat Gran (auto) 0.04 H Absolute Neuts (auto) 8.2 Absolute Nucleated RBC 0.000 Nucleated RBC % (auto) 0.0 Smear Tech's Comments Anion Gap Estim Creat Clear Calc Estimated GFR Random Glucose Calcium Total Bilirubin AST ALT Alkaline Phosphatase Total Protein Albumin Urine Color Urine Appearance Urine pH Ur Specific [place] Urine Protein Urine Glucose (UA) Urine Ketones Urine Blood Urine Nitrite Ur Leukocyte Esterase Urine RBC Urine WBC Ur Squamous Epith Cells Urine Bacteria Hyaline Casts Imaging Radiologist's Impressions: Impressions Abdomen/Pelvis CT 08/19/21 13:24 IMPRESSION: Dilated fluid-filled stomach and proximal small bowel suggestive of small bowel obstruction. Stable mild wall thickening and inflammatory changes at the ileoanal anastomosis. Quality VTE VTE Risk Level:: Medical - moderate - high VTE Device Contraindication: N/A - Device Ordered VTE Drug Contraindication: N/A - Med Ordered
--- NOTE | 2021-08-19 22:20 | P.CONHOSP_ITS ---
History of Present Illness Data of Consult Service Date: 08/19/21 Primary Care Provider: Unknown Physician HPI Is a 56-year-old male with past medical history of Crohn's disease, CKD, HLD, HTN, who presents to the hospital with abdominal pain. Patient found to have small-bowel obstruction for CT and will be admitted to surgical team with a consult to our team due to history of Crohn's disease. Patient reports that the pain started yesterday, sharp, constant, diffuse, worse in his usual abdominal pain associated with his inflammatory bowel disease. Patient reports some diarrhea with no blood, had nausea and few episodes of vomiting at home with no chest pain, no shortness of breath, no urinary symptoms and no lower extremity edema. Review of system otherwise negative except as mentioned Vitals on arrival reviewed which show hypertension with a blood pressure of 145/99 otherwise unremarkable Labs reviewed shows chronic abnormality including CKD and hemoglobin of 11.3 which is also at his baseline Abdominal CT shows dilated fluid-filled stomach and proximal small bowel suggestive of small bowel obstruction. Stable mild wall thickening and inflammatory changes at the ileal anal anastomosis- no changes there Patient is being admitted to surgical team for further management of small-bowel obstruction Review of Systems Review of Systems: Yes all other systems are reviewed and are negative PMFSH Medical History CKD (chronic kidney disease) Colitis Constipation Crohn's disease of both small and large intestine HLD (hyperlipidemia) HTN (hypertension) Ulcerative colitis Family History Mother Stroke Diabetes mellitus HTN (hypertension), benign Hyperlipidemia Brother Diabetes mellitus Pertinent family history: No pertinent history Surgical History H/O cervical spine surgery H/O total colectomy History of colostomy reversal History of esophagogastroduodenoscopy (EGD) Hx of colonoscopy Social History Household Members: None Housing: Other Housing Other:: Rents a room Do you presently have visiting nurse or other home services: No Alcohol intake: never Patient Tobacco Use Status: Never used Tobacco Use of substances other than those prescribed or required for medical reasons: No Substance Use Type: Heroin Advance Directives: Yes Advance Directives on File: Yes Advance Directives Date on File: 03/08/21 service: No Current occupational status: unemployed Meds Allergies Allergy/AdvReac Type Severity Reaction Status Date / Time Iodinated Contrast Media Allergy Intermediate HIVES Verified 06/30/21 08:33 [IV CONTRAST] prednisone [PREDNISONE] Allergy Mild RASH Verified 06/30/21 08:33 prednisolone Allergy Unknown rash Verified 06/30/21 08:33 Active Medications: Current Medications Heparin Sodium (Porcine) (Heparin Sodium,Porcine 5,000 Unit/Ml Vial) 5,000 unit SUBCUT Q8H [facility] Last Admin: 08/19/21 20:36 Dose: 5,000 unit Documented by: Sodium Chloride (Ns) 1,000 mls @ 80 mls/hr IVCONT .[id number] [facility] Last Admin: 08/19/21 20:36 Dose: 80 mls/hr Documented by: Morphine Sulfate (Morphine Sulfate 4 Mg/Ml Cartridge) 3 mg IVPUSH Q3H PRN; Protocol PRN Reason: pain, severe Sodium Chloride (0.9 % Sodium Chloride Flush 3 Ml Syringe) 3 ml IVFLUSH QSHIFT [facility] Zolpidem Tartrate (Zolpidem Tartrate 5 Mg Tablet) 5 mg PO BEDTIME PRN PRN Reason: Insomnia Home Medications Medication Instructions Recorded Confirmed Last Taken Type felodipine 5 mg tablet,extended 1 tab PO DAILY 03/03/21 07/31/21 06/30/21 History release 24 hr gabapentin 100 mg capsule 1 cap PO TID 03/03/21 07/31/21 06/30/21 History mesalamine 400 mg capsule (with 2 cap PO TID 03/03/21 07/31/21 06/30/21 History delayed release tablets inside) metoprolol tartrate 50 mg tablet 1 tab PO BID 03/03/21 07/31/21 06/30/21 History pantoprazole 40 mg tablet,delayed 1 tab PO DAILY@0630 03/03/21 07/31/21 06/30/21 History release rosuvastatin 40 mg tablet 1 tab PO BEDTIME 03/03/21 07/31/21 06/29/21 History zolpidem 10 mg tablet 1 tab PO BEDTIME 03/03/21 07/31/21 06/29/21 History clotrimazole 1 % topical cream 1 appl TOPICAL BID PRN 06/30/21 07/31/21 Unknown History cyanocobalamin (vitamin B-12) 1 tab PO QAM 06/30/21 07/31/21 06/30/21 History 1,000 mcg tablet ferrous gluconate 324 mg (38 mg 1 tab PO QAM 06/30/21 07/31/21 06/30/21 History iron) tablet methadone 10 mg/mL oral 28 mg PO DAILY ml 08/09/21 Unknown History concentrate (Methadone Intensol) Physical Exam Vital Signs and Narrative: Vital Signs: Last Vital Signs Temp 98.9 F 08/19/21 16:35 Pulse 69 08/19/21 20:37 Resp 16 08/19/21 20:37 BP 138/86 08/19/21 20:37 Pulse Ox 95 08/19/21 20:37 Body Mass Index 31.0 Const: General: cooperative and no acute distress Orientation/consciousness: patient oriented x3 Eyes: General: appearance normal, both eyes and all related structures Resp: Effort & Inspection: normal respiratory effort Auscultation: clear to auscultation bilaterally Cardio: Rate: regular rate Rhythm: regular rhythm GI: Other: Distended abdom, diffuse tenderness, no rebound or guarding Hyperactive bowel sounds Palpation (GI): Soft to palpation Auscultation: normal bowel sounds Skin: General skin exam: no rashes or lesions noted Neuro: General: patient oriented x3 Cognition (Neuro): normal cognition Extrem: General: Yes normal to inspection and Yes no pedal edema Results Labs CBC and Chem 7: 08/19/21 16:08 08/19/21 16:08 Labs: Laboratory Results - last 24 hr 08/19/21 08/19/21 08/19/21 14:21 14:21 16:08 MCV Cancelled MCH Cancelled MCHC Cancelled RDW Cancelled Plt Count Cancelled MPV Cancelled Immature Gran % (Auto) Cancelled Neut % (Auto) Cancelled Lymph % (Auto) Cancelled [place] % (Auto) Cancelled Eos % (Auto) Cancelled Baso % (Auto) Cancelled Lymph # (Auto) Cancelled [place] # (Auto) Cancelled Eos # (Auto) Cancelled Baso # (Auto) Cancelled Abs Immat Gran (auto) Cancelled Absolute Neuts (auto) Cancelled Absolute Nucleated RBC Cancelled Nucleated RBC % (auto) Cancelled Smear Tech's Comments Cancelled Anion Gap 14 Estim Creat Clear Calc 63.4 Estimated GFR 49 Random Glucose 117 H Calcium 9.2 Total Bilirubin 0.5 AST 18 ALT 11 Alkaline Phosphatase 62 D Total Protein 7.7 Albumin 3.9 Urine Color YELLOW Urine Appearance HAZY Urine pH 6.0 Ur Specific [place] >= 1.030 H Urine Protein 2+ H Urine Glucose (UA) NEG Urine Ketones NEG Urine Blood TRACE Urine Nitrite NEG Ur Leukocyte Esterase NEG Urine RBC 1-4 Urine WBC 0-2 Ur Squamous Epith Cells TRACE Urine Bacteria 1+ Hyaline Casts 0-2 08/19/21 16:08 MCV 85.3 MCH 26.8 L MCHC 31.4 RDW 15.8 Plt Count 288 MPV 9.3 L Immature Gran % (Auto) 0.4 Neut % (Auto) 83.9 H Lymph % (Auto) 7.4 L [place] % (Auto) 8.2 Eos % (Auto) 0.0 Baso % (Auto) 0.1 Lymph # (Auto) 0.7 L [place] # (Auto) 0.8 Eos # (Auto) 0.0 Baso # (Auto) 0.0 Abs Immat Gran (auto) 0.04 H Absolute Neuts (auto) 8.2 Absolute Nucleated RBC 0.000 Nucleated RBC % (auto) 0.0 Smear Tech's Comments Anion Gap Estim Creat Clear Calc Estimated GFR Random Glucose Calcium Total Bilirubin AST ALT Alkaline Phosphatase Total Protein Albumin Urine Color Urine Appearance Urine pH Ur Specific [place] Urine Protein Urine Glucose (UA) Urine Ketones Urine Blood Urine Nitrite Ur Leukocyte Esterase Urine RBC Urine WBC Ur Squamous Epith Cells Urine Bacteria Hyaline Casts Imaging Radiologist's Impressions: Impressions Abdomen/Pelvis CT 08/19/21 13:24 IMPRESSION: Dilated fluid-filled stomach and proximal small bowel suggestive of small bowel obstruction. Stable mild wall thickening and inflammatory changes at the ileoanal anastomosis. Assessment and Plan (1) Abdominal pain: Status: Acute (2) SBO (small bowel obstruction): Status: Acute (3) Diarrhea: Status: Acute 56-year-old male with past medical history of inflammatory bowel disease, hyperlipidemia, presents the hospital with abdominal pain found to have small- bowel obstruction # abdominal pain - secondary to small-bowel obstruction - abdominal CT showing small-bowel obstruction with stable Crohn's changes - pain control per surgical team # small-bowel obstruction - patient NPO - further management per surgical team # diarrhea - most likely secondary to his chronic Crohn's - nonbloody - C diff negative - continue his home medications of mesalamine # hypertension - elevated - most likely secondary to pain - improved spontaneously - continue home antihypertensives once patient able to take p.o. # hyperlipidemia - continue statin Thank you for this consult continue to follow patient along with you DVT prophylaxis: Per surgical team
--- NOTE | 2021-08-19 23:25 | PC.NURSE ---
pt a&O, no sob or chest pain at this time. pt is sleeping at this no apparent distress.
--- NOTE | 2021-08-19 23:35 | PC.NURSE ---
Pt is sleeping at this time, will continue to monitor. pt has had several loose stool. Hospitalist is aware.
[2021-08-19 23:52] VITALS: BP 129/82; PULSE 76; RESP 14; TEMP 36.9; O2SAT 93
[2021-08-20] VITALS (8 sets, daily range): BP systolic 131–161; BP diastolic 73–88; PULSE 56–76; RESP 15–18; TEMP 36.5–37.1; O2SAT 94–97
[2021-08-20] MEDS: Heparin Sodium,Porcine 5,000 UNIT/ML VIAL 5000 UNIT SUBCUT ×3 (04:16→20:06)
[2021-08-20] MEDS: Morphine Sulfate 4 MG/ML CARTRIDGE 3 MG IVPUSH ×4 (04:32→20:06)
--- NOTE | 2021-08-20 04:43 | PC.NURSE ---
medicated for pain. IV flushed.
[2021-08-20 05:12] LABS: CDiff Gene PCR NEGATIVE (Negative)
[2021-08-20 06:49] LABS: COVID-19 Test Negative (Negative); IDNOW Serial# 9DD0AD1C
--- NOTE | 2021-08-20 08:01 | PC.NURSE ---
Rn to RN with lucie on MEd surg
--- NOTE | 2021-08-20 08:05 | PC.NURSE ---
report recieved at 7am from Caitlyn TOM. Pt resting quietly, ringing to request morning methadone. Pharmacy present and in to speak with patient. no vomiting. no grimace. awaits transfer upstairs.
--- NOTE | 2021-08-20 08:26 | PHA.MEDREC ---
Pharmacy Consult ? Medication Reconciliation Pharmacy has completed the medication reconciliation. Patient recieved methadone from [facility]. Last dose was 27 mg on 08/19/21, confirmed with Mary. Isamar Manuel, ShruthiD
--- NOTE | 2021-08-20 08:27 | MHC.CM.PN ---
CM met with Patient at bedside. Patient lives alone in an apartment and he is functionally independent. Patient's goal is home/no services and CM has initiated and will follow for dc planning/HCP is on file and PCP is through [facility].
--- NOTE | 2021-08-20 09:00 | PM.HPGS ---
History of Present Illness History of Present Illness Date of Service: 08/20/21 <Kira Morrow PA-C - Last Filed: 08/20/21 09:39> 08/20/21 <Richard Lopez MD - Last Filed: 08/20/21 14:15> Chief complaint: abdominal pain <Kira Morrow PA-C - Last Filed: 08/20/21 09:39> Narrative: Jayden Pierce is a 56 year old male with an extensive surgical history and multiple medical comorbidities who presented to the ED with complaints of abdominal pain. The patient has a history of ulcerative colitis and underwent total colectomy with a diverting ileostomy in the at [facility], ultimately had the ileostomy reversed, and has had an ileoanal pouch since then. The patient has had multiple admissions for abdominal pain in 2020, with the most recent in July. He reports problems with constipation since the pouch with more frequent episodes of abdominal pain for the past several months. He had a pouchoscopy with Dr. Silva which showed suggestion of pouchitis.?He has been on multiple courses of Cipro and Flagyl for this. He reports he is scheduled to have another pouchoscopy with Dr. Silva soon. This current episode of pain began two days prior. It was associated with bloating and his abdomen becoming rock hard . The pain was diffuse but most significant periumbilically. He developed nausea and had one episode of vomiting in the ED. He reports his last bowel movement was last night and then he had multiple episodes of loose stool in the ED. Since this, he feels much better with less pain and bloating. He has been passing flatus occasionally. This episode of pain feels similar to his previous. In the ED, work up included a CT scan which demonstrated dilated, fluid-filled stomach and loops of proximal small bowel in the left mid and lower abdomen with wall thickening at the ileoanal anastomosis and some stranding of the soft tissues in the presacral space which is similar and unchanged to prior exams. <Kira Morrow PA-C - Last Filed: 08/20/21 09:39> Review of Systems Constitutional: Constitutional: Denies anorexia, Denies fever(s) and Denies malaise <Kira Morrow PA-C - Last Filed: 08/20/21 09:39> ENT: Denies dizziness <Kira Morrow PA-C Last Filed: 08/20/21 09:39> Cardiovascular: Cardiovascular: Denies chest pain and Denies dyspnea <Kira Morrow PA-C Last Filed: 08/20/21 09:39> Respiratory: Respiratory: Denies cough and Denies dyspnea <Kira Morrow PA-C Last Filed: 08/20/21 09:39> Gastrointestinal: Gastrointestinal: Reports as per HPI, Reports abdominal pain, Denies hematochezia, Reports loose stools, Reports nausea and Reports vomiting <Kira Morrow PA-C Last Filed: 08/20/21 09:39> Genitourinary: Genitourinary: Denies hematuria and Denies dysuria <Kira Morrow PA-C Filed: 08/20/21 09:39> Integumentary/Breasts: Skin/Breast: Denies rash <Kira Morrow PA-C Last Filed: 08/20/21 09:39> Neurologic: Denies dizziness and Denies focal weakness <Kira Morrow PA-C Last Filed: 08/20/21 09:39> PMFSH Past Medical History Medical History: Medical History CKD (chronic kidney disease) Colitis Constipation Crohn's disease of both small and large intestine HLD (hyperlipidemia) HTN (hypertension) Ulcerative colitis <Kira Morrow PA-C Filed: 08/20/21 09:39> Family History Family History: Family History Mother Stroke Diabetes mellitus HTN (hypertension), benign Hyperlipidemia Brother Diabetes mellitus <Kira Morrow PA-C Last Filed: 08/20/21 09:39> Surgical History Surgical History: Surgical History H/O cervical spine surgery H/O total colectomy History of colostomy reversal History of esophagogastroduodenoscopy (EGD) Hx of colonoscopy <Kira Morrow PA-C - Last Filed: 08/20/21 09:39> Social History Social History: Social History Household Members: None Housing: Other Housing Other:: Rents a room Do you presently have visiting nurse or other home services: No Alcohol intake: never Patient Tobacco Use Status: Never used Tobacco Substance Use Type: Heroin Advance Directives Date on File: 03/08/21 service: No Current occupational status: disabled <MILAGRO Chow Last Filed: 08/20/21 09:39> Meds Allergies/Adverse reactions: Allergies Allergy/AdvReac Type Severity Reaction Status Date / Time Iodinated Contrast Media Allergy Intermediate HIVES Verified 08/20/21 08:37 [IV CONTRAST] prednisone [PREDNISONE] Allergy Mild RASH Verified 08/20/21 08:37 prednisolone Allergy Unknown rash Verified 08/20/21 08:37 <MILAGRO Chow Last Filed: 08/20/21 09:39> Active Medications: Current Medications Heparin Sodium (Porcine) (Heparin Sodium,Porcine 5,000 Unit/Ml Vial) 5,000 unit SUBCUT Q8H [facility] Last Admin: 08/20/21 04:16 Dose: 5,000 unit Documented by: Sodium Chloride (Ns) 1,000 mls @ 80 mls/hr IVCONT .[id number] [facility] Last Admin: 08/20/21 08:23 Dose: Not Given Documented by: Morphine Sulfate (Morphine Sulfate 4 Mg/Ml Cartridge) 3 mg IVPUSH Q3H PRN; Protocol PRN Reason: pain, severe Last Admin: 08/20/21 04:32 Dose: 3 mg Documented by: Sodium Chloride (0.9 % Sodium Chloride Flush 3 Ml Syringe) 3 ml IVFLUSH QSHIFT [facility] Last Admin: 08/20/21 08:05 Dose: Not Given Documented by: Zolpidem Tartrate (Zolpidem Tartrate 5 Mg Tablet) 5 mg PO BEDTIME PRN PRN Reason: Insomnia <MILAGRO Chow Last Filed: 08/20/21 09:39> Home medications: Home Medications Medication Instructions Recorded Confirmed Last Taken Type felodipine 5 mg tablet,extended 1 tab PO DAILY 03/03/21 08/20/2121 History release 24 hr gabapentin 100 mg capsule 1 cap PO TID 03/03/21 08/20/21 08/19/21 History mesalamine 400 mg capsule (with 2 cap PO TID 03/03/21 08/20/21 08/19/21 History delayed release tablets inside) metoprolol tartrate 50 mg tablet 1 tab PO BID 03/03/21 08/20/21 08/19/21 History pantoprazole 40 mg tablet,delayed 1 tab PO DAILY@0630 03/03/21 08/20/21 08/19/21 History release rosuvastatin 40 mg tablet 1 tab PO BEDTIME 03/03/21 08/20/21 08/19/21 History zolpidem 10 mg tablet 1 tab PO BEDTIME 03/03/21 08/20/21 08/19/21 History clotrimazole 1 % topical cream 1 appl TOPICAL BID PRN 06/30/21 08/20/21 08/19/21 History cyanocobalamin (vitamin B-12) 1 tab PO QAM 06/30/21 08/20/21 08/19/21 History 1,000 mcg tablet ferrous gluconate 324 mg (38 mg 1 tab PO QAM 06/30/21 08/20/21 08/19/21 History iron) tablet methadone 10 mg/mL oral 27 mg PO DAILY ml 08/09/21 08/20/21 08/19/21 History concentrate (Methadone Intensol) lidocaine 5 % topical patch 1 patch TOPICAL DAILY 08/20/21 08/20/21 08/19/21 History <Kira Morrow PA-C - Last Filed: 08/20/21 09:39> Physical Exam Vital Signs: Vital Signs: Last Vital Signs Temp 98.6 F 08/20/21 08:28 Pulse 76 08/20/21 08:28 Resp 18 08/20/21 08:28 BP 145/83 H 08/20/21 08:28 Pulse Ox 97 08/20/21 08:28 Body Mass Index 31.0 <Kira Morrow PA-C - Last Filed: 08/20/21 09:39> Const: General: comfortable, no acute distress, well developed and alert <Kira Morrow PA-C - Last Filed: 08/20/21 09:39> Orientation/consciousness: patient oriented x3 <Kira Yuandeau MILAGRO Villalobos Last Filed: 08/20/21 09:39> Eyes: Sclerae: sclerae normal <Kira Yuandeau MILAGRO Villalobos Last Filed: 08/20/21 09:39> Resp: Effort & Inspection: normal respiratory effort <Kira YuandeauEDULeonor Villalobos Last Filed: 08/20/21 09:39> GI: Inspection: Yes distended and Yes scar <Kira Yuandeau MILAGRO Villalobos Last Filed: 08/20/21 09:39> Palpation (GI): Soft to palpation, Tenderness to palpation present (GI) periumbilically; Negative for with no rebound tenderness, no guarding and not rigid <Kira Francoemy MILAGRO Villalobos Last Filed: 08/20/21 09:39> Skin: General skin exam: no rashes or lesions noted <Kira FrancoEDU quevedoLeonor Villalobos Last Filed: 08/20/21 09:39> Neuro: General: patient oriented x3 <Kira Francobodeau MILAGRO Villalobos Last Filed: 08/20/21 09:39> Extrem: General: Yes no clubbing, cyanosis or edema <Kira Francoemy MILAGRO Villalobos Last Filed: 08/20/21 09:39> Results Results Labs: Short CBC 08/19/21 08/19/21 Range/Units 14:21 16:08 WBC Cancelled 9.8 Hgb Cancelled 11.3 L Hct Cancelled 36.0 L Plt Count Cancelled 288 BMP 08/19/21 16:08 Sodium 139 Potassium 4.2 D Chloride 100 Carbon Dioxide 29 BUN 26 H Creatinine 1.48 H Calcium 9.2 Liver Function 08/19/21 Range/Units 16:08 Total Bilirubin 0.5 (0.0-1.0) mg/dL AST 18 (5-37) U/L ALT 11 (0-40) U/L Alkaline Phosphatase 62 D (39-117) U/L Albumin 3.9 (3.5-5.0) g/dL Urine 08/19/21 Range/Units 14:21 Urine Color YELLOW Urine Appearance HAZY Urine pH 6.0 (5.0-8.0) Ur Specific [place] >= 1.030 H (1.005-1.025) Urine Protein 2+ H (NEG-TRACE) MG/DL Urine Glucose (UA) NEG (NEG) MG/DL <Kira Morrow PA-C - Last Filed: 08/20/21 09:39> Assessment and Plan (1) SBO (small bowel obstruction): Status: Acute <Kira Morrow PA-C - Last Filed: 08/20/21 09:39> Patient admitted last night Seen and examined early this morning Has chronic similar symptoms Feels better this morning Review of CT scan suggests chronic proctitis, but may have narrowing in the ileal pouch anal anastomosis Keep on clear liquids for today GI consult - patient is being followed by Dr. Silva Agree with EDU Morrow <Richard Lopez MD - Last Filed: 08/20/21 14:15> (2) Inflammation of ileoanal pouch: Status: Acute <Kira Morrow PA-C - Last Filed: 08/20/21 09:39> 56-year-old male with past medical history of CKD, HLD, HTN and Crohns disease requiring total colectomy and ileostomy which was subsequently reversed and now has ileoanal pouch. He has underwent pouchoscopy with Dr. 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 He has had ongoing problems with abdominal pain with increasing frequency of episodes within the last year. Currently, he also seems to have a SBO as this episode of abdominal pain is associated with nausea, vomiting and distention. His CT scan shows dilated, fluid filled stomach and small bowel and unchanged wall thickening at the ileoanal anastomosis and some stranding of the soft tissues in the presacral space. The obstruction is likely partial and appears to be resolving now as he has had multiple episodes of loose stools and reports improvement in his abdominal pain. His abdomen is benign. Will continue nonoperative measures and begin clear liquids and gentle IVF. Will also obtain GI consult. He reports plans for repeat pouchoscopy with biopsy with Dr. Silva. Appreciate hospitalist input. <Kira Morrow PA-C - Last Filed: 08/20/21 09:39> Quality Stroke Does the patient have a stroke diagnosis?: No <Kira Morrow PA-C - Last Filed: 08/20/21 09:39> VTE Prior VTE?: No <Kira Morrow PA-C - Last Filed: 08/20/21 09:39> VTE Risk Level:: Medical - moderate - high <Kira Morrow PA-C - Last Filed: 08/20/21 09:39> VTE Device Contraindication: N/A - Device Ordered <Kira Morrow PA-C - Last Filed: 08/20/21 09:39> VTE Drug Contraindication: N/A - Med Ordered <Kira Morrow PA-C - Last Filed: 08/20/21 09:39> Procedures Date of Service Date of Service: 08/20/21 <Kira Morrow PA-C - Last Filed: 08/20/21 09:39>
--- NOTE | 2021-08-20 10:12 | P.PNIM_ITS ---
Subjective Subjective Date of Service: 08/20/21 Interval History: Seen and examined this morning Follow-up for medical consultation Abdominal pain improved as compared to yesterday Reports 3 or 4 episodes of diarrhea. Vomiting resolved Review of Systems Review of Systems: Yes all other systems are reviewed and are negative Constitutional Constitutional: Denies chills and Denies fever(s) Cardiovascular Cardiovascular: Denies chest pain Respiratory Respiratory: Denies cough Physical Exam Vital Signs: Vital Signs: Last Vital Signs Temp 98.6 F 08/20/21 08:28 Pulse 76 08/20/21 08:28 Resp 18 08/20/21 08:28 BP 145/83 H 08/20/21 08:28 Pulse Ox 97 08/20/21 08:28 Body Mass Index 31.0 Const: Nutritional Appearance: well nourished Orientation/consciousness: patient oriented x3 HENMT: Head: Yes normocephalic and Yes atraumatic Eyes: Sclerae: sclerae normal Chest: Chest palpation & inspection: normal inspection of the chest Resp: Effort & Inspection: normal respiratory effort and no respiratory distress Cardio: Rate: regular rate Rhythm: regular rhythm GI: Other: generalized TTP, soft, non-distended; hyperactive bowel sounds Neuro: General: patient oriented x3 Cranial nerves: Yes CN's II-XII intact bilaterally and Yes Bilaterally intact EOM present Objective Data Active Medications Heparin Sodium (Porcine) (Heparin Sodium,Porcine 5,000 Unit/Ml Vial) 5,000 unit SUBCUT Q8H [facility] Last Admin: 08/20/21 04:16 Dose: 5,000 unit Documented by: NATASHA Sodium Chloride (Ns) 1,000 mls @ 80 mls/hr IVCONT .[id number] [facility] Last Infusion: 08/20/21 09:15 Dose: 0 mls/hr Documented by: AZEB Morphine Sulfate (Morphine Sulfate 4 Mg/Ml Cartridge) 3 mg IVPUSH Q3H PRN; Protocol PRN Reason: pain, severe Last Admin: 08/20/21 09:51 Dose: 3 mg Documented by: AZEB Sodium Chloride (0.9 % Sodium Chloride Flush 3 Ml Syringe) 3 ml IVFLUSH QSHIFT [facility] Last Admin: 08/20/21 08:05 Dose: Not Given Documented by: JUAN Non-Admin Reason: Not In Room Zolpidem Tartrate (Zolpidem Tartrate 5 Mg Tablet) 5 mg PO BEDTIME PRN PRN Reason: Insomnia Labs CBC & Chem 7: 08/19/21 16:08 08/19/21 16:08 Labs: Laboratory Results - last 24 hr 08/19/21 08/19/21 08/19/21 14:21 14:21 16:08 MCV Cancelled MCH Cancelled MCHC Cancelled RDW Cancelled Plt Count Cancelled MPV Cancelled Immature Gran % (Auto) Cancelled Neut % (Auto) Cancelled Lymph % (Auto) Cancelled [place] % (Auto) Cancelled Eos % (Auto) Cancelled Baso % (Auto) Cancelled Lymph # (Auto) Cancelled [place] # (Auto) Cancelled Eos # (Auto) Cancelled Baso # (Auto) Cancelled Abs Immat Gran (auto) Cancelled Absolute Neuts (auto) Cancelled Absolute Nucleated RBC Cancelled Nucleated RBC % (auto) Cancelled Smear Tech's Comments Cancelled Anion Gap 14 Estim Creat Clear Calc 63.4 Estimated GFR 49 Random Glucose 117 H Calcium 9.2 Total Bilirubin 0.5 AST 18 ALT 11 Alkaline Phosphatase 62 D Total Protein 7.7 Albumin 3.9 Urine Color YELLOW Urine Appearance HAZY Urine pH 6.0 Ur Specific [place] >= 1.030 H Urine Protein 2+ H Urine Glucose (UA) NEG Urine Ketones NEG Urine Blood TRACE Urine Nitrite NEG Ur Leukocyte Esterase NEG Urine RBC 1-4 Urine WBC 0-2 Ur Squamous Epith Cells TRACE Urine Bacteria 1+ Hyaline Casts 0-2 C. difficile Tox B Gene COVID-19 ([facility]) COVID-19 Clin Com 08/19/21 08/20/21 08/20/21 16:08 04:19 06:31 MCV 85.3 MCH 26.8 L MCHC 31.4 RDW 15.8 Plt Count 288 MPV 9.3 L Immature Gran % (Auto) 0.4 Neut % (Auto) 83.9 H Lymph % (Auto) 7.4 L [place] % (Auto) 8.2 Eos % (Auto) 0.0 Baso % (Auto) 0.1 Lymph # (Auto) 0.7 L [place] # (Auto) 0.8 Eos # (Auto) 0.0 Baso # (Auto) 0.0 Abs Immat Gran (auto) 0.04 H Absolute Neuts (auto) 8.2 Absolute Nucleated RBC 0.000 Nucleated RBC % (auto) 0.0 Smear Tech's Comments Anion Gap Estim Creat Clear Calc Estimated GFR Random Glucose Calcium Total Bilirubin AST ALT Alkaline Phosphatase Total Protein Albumin Urine Color Urine Appearance Urine pH Ur Specific [place] Urine Protein Urine Glucose (UA) Urine Ketones Urine Blood Urine Nitrite Ur Leukocyte Esterase Urine RBC Urine WBC Ur Squamous Epith Cells Urine Bacteria Hyaline Casts C. difficile Tox B Gene NEGATIVE COVID-19 ([facility]) Negative COVID-19 Clin Com See Note Assessment and Plan (1) Diarrhea: Status: Acute (2) Abdominal pain: Status: Acute (3) SBO (small bowel obstruction): Status: Acute Assessment and Plan: 56-year-old male with past medical history of inflammatory bowel disease, hyperlipidemia, presents the hospital with abdominal pain found to have small- bowel obstruction small-bowel obstruction h/o underlying IBD, agree with GI consult on clear liquids diarrhea h/o IBD C diff negative continue mesalamine hypertension BP improved. Continue formulary equivalent for felodipine, metoprolol CKD3 Creatinine at baseline hyperlipidemia -hold statin h/o OUD -continue methadone Attending: Dr. Pederson Quality Stroke Does the patient have a stroke diagnosis?: No VTE Prior VTE?: No VTE Risk Level:: Medical - moderate - high VTE Device Contraindication: N/A - Device Ordered VTE Drug Contraindication: N/A - Med Ordered
[2021-08-20] MEDS: methADONE HCl 20 MG/2 ML ORAL.CONC 25 MG PO (10:56)
--- NOTE | 2021-08-20 14:15 | PM.EVENT ---
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
[2021-08-20] MEDS: Gabapentin 100 MG CAPSULE PO ×2 (14:54→20:15)
[2021-08-20] MEDS: Mesalamine 400 MG CAP.DRTAB. 800 MG PO ×2 (14:54→20:06)
[2021-08-20] MEDS: 0.9 % Sodium Chloride 1,000 ML 80 ML IVCONT (14:55)
--- NOTE | 2021-08-20 15:23 | PM.GICN ---
History of Present Illness Data of Consult Service Date: 08/20/21 Requesting physician: Kira Morrow Primary Care Provider: Unknown Physician HPI Reason for consult: Crohn's disease 56 YM with hx of opioid use, HTN, and crohns disease with hx of total colectomy with stoma then reversal and anastomosis with rectum. Dxed with Crohn's disease > 10 yrs ago and had total colectomy with stoma then reversal and anastomosis with rectum He has been followed in Gi by Dr Silva since Nov, 2019. [place] [facility] [place]: HPI narrative: This is a 56-year-old male with history of Crohn's disease who complains of abdominal pain that started yesterday.? He says the pain is severe and constant, worse with movement.? He denies any fever.? Patient reports some nausea as well as vomiting at home.He has had a little diarrhea.? Denies any blood in his stool.? He denies any urinary symptoms.? He states this is worse than prior episodes of Crohn's.? He cannot say what medicines he is on for Crohn's but states he has been taking his medications.? Pain is described as sharp, not worse with movement Pt was admitted for management of SBO. He notes partial improvement in abd pain today and has been passing gas and has a BM earlier today. Abdominal distention has improved. Patient denies symptoms of heartburn, dysphagia, nausea, vomiting, change in appetite or weight. He has 3-4 soft BM daily (prior to current episode of SBO) and denies black stools or rectal bleeding. Patient denies major cardiac or pulmonary problems. Denies being on chronic anticoagulation. Patient denies known family history of IBD, colon polyps, colon cancer or other GI malignancies. ENDOSCOPIC STUDIES: 01/2020 EGD AND POUCHOSCOPY SHOWED: Mild gastritis. There was granular appearance and friability to pouch and some mild ulceration, biopsies taken. Afferent and efferent limbs appeared normal, bx taken. some inflammation around the ileoanal area, bx taken. Anal skin macerated and slightly irriated probably from diarrhea. Pt was treated with Ciprofloxacin for pouchitis. BIOPSIES SHOWED: A. Duodenum, biopsies: Mild, focal active duodenitis; negative for granulomas; negative for dysplasia/malignancy. B. Stomach, biopsies: Gastric mucosa with moderate chronic, inactive gastritis; negative for Helicobacter; negative for intestinal metaplasia/dysplasia. C. Pouch, biopsies: Mild active inflammation; no overt evidence of chronic changes; negative for granulomas; negative for dysplasia/malignancy. D. Small-bowel, afferent, biopsies: Small bowel mucosa with mild active inflammation; no overt evidence of chronic changes; negative for granulomas; negative dysplasia/malignancy. E. Small bowel, efferent, biopsies: Small bowel mucosa within normal limits; negative for granulomas; negative for dysplasia/malignancy. F. Ileo-anal junction, biopsies: Mild active inflammation; no overt evidence of chronic changes; negative for granulomas; negative for dysplasia/malignancy. IMAGING STUDIES: 08/19/[address] SCAN SHOWED: Dilated fluid-filled stomach and proximal small bowel suggestive of small bowel obstruction. Stable mild wall thickening and inflammatory changes at the ileoanal anastomosis. PAST GI HX BY REVIEW OF MEDICAL RECORDS: Elevated CRP 0.72 and Sed rate 39 in the past Elevated fecal calprotectin of 255.7 in 2019 C Diff toxin was negative Fecal pancreatic elastase >500 08/09/21 Pt had a TV with Dr Silva: RECAP: ? He had been having numerous diarrheal stools for 1-2 weeks associated with RLQ discomfort and cramps. Blood noted on wiping, but not in the toilet. He denies any recent travel or improperly cooked foods, no sick contacts or recent antibiotics. He denied chest pain, shortness of breath, nausea, vomiting. He was on asacol for his crohns disease but unsure if it helps him or not. He was given Rocephin, Flagyl, IV fluid and pain medicine and his sx improved. Abdominal CT reported by radiologist as showing colitis to the remaining sigmoid colon without any abscess or fluid collection. His last colonoscopy was 01/2020 and he appeared to have a pouch without any sigmoid colon as noted in the CT scan, the bx of small bowel were normal, as were the pouch. There did appear to be inflammation around ileo anal area but bx were ok. I gave him cipro at the time and anti fungal cream due to maceration of anal skin due to diarrhea. He had repeat admission for diarrhea and treated for pouchitis 06/2021--wiht Ct revealing mild bowel wall thickening and stranding in pelvis. He went to Ed again for abdo pain and nausea and was givne ABx again INTERIM: He finished the ABx and feels the sx are worse again but had bene good for as long as he was on ABX pain is sharp in the lower abdomen he has urgency and tenesmus no blood in stool food can make the pain worse denies nausea or vomting feels he is constipated as well he still takes methadone --going down on dose A/P: 1/ Recurrent pouchitis, possibly infectious vs recurrence of IBD in pouch or crohns PLAN: 1/ repat ABx and try tinidazole for 10 d instead 2/ Add probiotic VSL #5 indefinitely 3/ repeat pouchoscopy wt biopsy, might need bioloigic if IBD still suspected? --prep for this is enemas Review of Systems Constitutional: Constitutional: Denies fever(s), Denies headache(s) and Denies weight loss Eyes: Eyes: Denies eye discharge and Denies irritation ENT: Reports Normal hearing present, Denies dysphagia, Denies dizziness and Denies headache(s) Cardiovascular: Cardiovascular: Denies chest pain, Denies leg edema and Denies dyspnea on exertion Respiratory: Respiratory: Denies cough, Denies dyspnea on exertion and Denies wheezing Gastrointestinal: Gastrointestinal: Reports abdominal pain, Reports bloating, Denies change in bowel habits, Denies dysphagia, Denies heartburn and Reports nausea Genitourinary: Genitourinary: Denies dysuria Musculoskeletal: Musculoskeletal: Denies back pain and Denies arthralgias Integumentary/Breasts: Skin/Breast: Denies pruritus, Denies rash and Denies jaundice Neurologic: Reports Normal hearing present, Denies Abnormal speech present, Denies dizziness, Denies headache(s) and Denies seizure-like activity Psychiatric: Psychiatric: Denies anxiety, Denies depression and Denies panic attacks Endocrine: Endocrine: Denies cold intolerance, Denies flushing and Denies heat intolerance Hematologic/Lymphatic: Hematologic/Lymphatic: Denies easy bleeding and Denies easy bruising Allergic/Immunologic: Allergic/Immunologic: Denies wheezing PMFSH Past Medical History Medical History CKD (chronic kidney disease) Colitis Constipation Crohn's disease of both small and large intestine HLD (hyperlipidemia) HTN (hypertension) Opioid use disorder Ulcerative colitis Family History Family History Mother Stroke Diabetes mellitus HTN (hypertension), benign Hyperlipidemia Brother Diabetes mellitus Surgical History Surgical History H/O cervical spine surgery H/O total colectomy History of colostomy reversal History of esophagogastroduodenoscopy (EGD) Hx of colonoscopy Social History Social History Household Members: None Housing: Other Housing Other:: Rents a room Do you presently have visiting nurse or other home services: No Alcohol intake: never Patient Tobacco Use Status: Never used Tobacco Substance Use Type: Heroin Advance Directives Date on File: 03/08/21 service: No Current occupational status: disabled Meds Allergies Allergy/AdvReac Type Severity Reaction Status Date / Time Iodinated Contrast Media Allergy Intermediate HIVES Verified 12/27/21 10:21 [IV CONTRAST] prednisone [PREDNISONE] Allergy Mild RASH Verified 12/27/21 10:21 Active Medications: Current Medications Amlodipine Besylate (Amlodipine Besylate 5 Mg Tablet) 5 mg PO DAILY [facility] Gabapentin (Gabapentin 100 Mg Capsule) 100 mg PO TID [facility] Last Admin: 08/20/21 14:54 Dose: 100 mg Documented by: Heparin Sodium (Porcine) (Heparin Sodium,Porcine 5,000 Unit/Ml Vial) 5,000 unit SUBCUT Q8H [facility] Last Admin: 08/20/21 14:54 Dose: 5,000 unit Documented by: Sodium Chloride (Ns) 1,000 mls @ 80 mls/hr IVCONT .[id number] [facility] Last Admin: 08/20/21 14:55 Dose: 80 mls/hr Documented by: Lidocaine (Lidocaine 4 % Patch Adh..Patch) 1 patch TRANSDERMA DAILY [facility] Mesalamine (Mesalamine 400 Mg Cap.Drtab.) 800 mg PO TID [facility] Last Admin: 08/20/21 14:54 Dose: 800 mg Documented by: Methadone HCl (Methadone Hcl 20 Mg/2 Ml Oral.Conc) 25 mg PO DAILY [facility] Last Admin: 08/20/21 10:56 Dose: 25 mg Documented by: Metoprolol Tartrate (Metoprolol Tartrate 50 Mg Tablet) 50 mg PO BID [facility]ELVI; Protocol Morphine Sulfate (Morphine Sulfate 4 Mg/Ml Cartridge) 3 mg IVPUSH Q3H PRN; Protocol PRN Reason: pain, severe Last Admin: 08/20/21 09:51 Dose: 3 mg Documented by: Omeprazole (Omeprazole 20 Mg Capsule.Dr) 20 mg PO DAILY@0630 [facility] Sodium Chloride (0.9 % Sodium Chloride Flush 3 Ml Syringe) 3 ml IVFLUSH QSHIFT [facility] Last Admin: 08/20/21 08:05 Dose: Not Given Documented by: Zolpidem Tartrate (Zolpidem Tartrate 5 Mg Tablet) 5 mg PO BEDTIME PRN PRN Reason: Insomnia Zolpidem Tartrate (Zolpidem Tartrate 5 Mg Tablet) 5 mg PO BEDTIME [facility] Home Medications Medication Instructions Recorded Confirmed Last Taken Type felodipine 5 mg tablet,extended 1 tab PO DAILY 03/03/21 08/20/21 08/19/21 History release 24 hr gabapentin 100 mg capsule 1 cap PO TID 03/03/21 08/20/21 08/19/21 History mesalamine 400 mg capsule (with 2 cap PO TID 03/03/21 08/20/21 08/19/21 History delayed release tablets inside) metoprolol tartrate 50 mg tablet 1 tab PO BID 03/03/21 08/20/21 08/19/21 History pantoprazole 40 mg tablet,delayed 1 tab PO DAILY@0630 03/03/21 08/20/21 08/19/21 History release rosuvastatin 40 mg tablet 1 tab PO BEDTIME 03/03/21 08/20/21 08/19/21 History zolpidem 10 mg tablet 1 tab PO BEDTIME 03/03/21 08/20/21 08/19/21 History clotrimazole 1 % topical cream 1 appl TOPICAL BID PRN 06/30/21 08/20/21 08/19/21 History cyanocobalamin (vitamin B-12) 1 tab PO QAM 06/30/21 08/20/21 08/19/21 History 1,000 mcg tablet ferrous gluconate 324 mg (38 mg 1 tab PO QAM 06/30/21 08/20/21 08/19/21 History iron) tablet lidocaine 5 % topical patch 1 patch TOPICAL DAILY 08/20/21 08/20/21 08/19/21 History Physical Exam Vital Signs: Vital Signs: Last Vital Signs Temp 98.6 F 08/20/21 08:28 Pulse 76 08/20/21 08:28 Resp 18 08/20/21 08:28 BP 145/83 H 08/20/21 08:28 Pulse Ox 97 08/20/21 08:28 Body Mass Index 31.0 Const: General: healthy appearing and no acute distress Nutritional Appearance: obese Orientation/consciousness: patient oriented x3 Limitations: no limitations HENMT: Head: Yes normal to inspection Ears: hearing grossly normal bilaterally Mouth: Normal oral and palatal mucosa present Eyes: Sclerae: sclerae normal Pupils: Equal, round and reactive pupils present Neck: Neck: Yes normal visual inspection Chest: Chest palpation & inspection: normal inspection of the chest Resp: Effort & Inspection: normal respiratory effort Auscultation: clear to auscultation bilaterally Cardio: Palpation: normal PMI Rate: regular rate Rhythm: regular rhythm Heart sounds: S1 normal heart sound present, S2 normal heart sound present and no murmurs GI: Inspection: Yes distended and Yes scar (Healed RLQ scar of past ileostomy, lower midline scar of past colectomy.) Palpation (GI): Soft to palpation, Tenderness to palpation present (GI) (Mild diffuse abdominal tenderness without rebound) and No hepatosplenomegaly present Auscultation: normal bowel sounds Rectal Exam - Male: Yes deferred Skin: General skin exam: no rashes or lesions noted Neuro: General: patient oriented x3, gait normal and moves all extremities Cranial nerves: Yes Equal, round and reactive pupils present and Yes Normal hearing present Speech: No Abnormal speech present Psych: Appearance: grossly normal Mental Status: mental status grossly normal Results Labs CBC & Chem 7: 08/22/21 05:24 08/22/21 05:24 Labs: Short CBC 08/19/21 Range/Units 16:08 WBC 9.8 (4.8-10.8) X10*3/uL Hgb 11.3 L (14.0-18.0) g/dl Hct 36.0 L (42-52) % Plt Count 288 (160-400) X10*3/uL BMP 08/19/21 16:08 Sodium 139 Potassium 4.2 D Chloride 100 Carbon Dioxide 29 BUN 26 H Creatinine 1.48 H Calcium 9.2 Liver Function 08/19/21 Range/Units 16:08 Total Bilirubin 0.5 (0.0-1.0) mg/dL AST 18 (5-37) U/L ALT 11 (0-40) U/L Alkaline Phosphatase 62 D (39-117) U/L Albumin 3.9 (3.5-5.0) g/dL Assessment and Plan (1) Inflammation of ileoanal pouch: Status: Acute (2) Abdominal pain: Status: Resolved (3) SBO (small bowel obstruction): Status: Resolved Plan 56 YM with hx of opioid use, HTN, and crohns disease admitted with SBO - likely related to adhesions from past abd surgeries. Dxed with Crohn's disease > 10 yrs ago and had total colectomy with stoma then reversal and anastomosis with rectum He has been followed in GI by Dr Silva since Nov, 2019. Pt has been passing gas and had a BM earlier today with improvement in abdominal pain and distension. He has been tolerating a clear liquid diet. RECOMMENDATIONS: 1. Continue to advance diet slowly as tolerated. 2. Pain control with IV pain medications 3. Resume mesalamine 800 mg TID. 4. CRP and Sed rate with am labs to determine if he has active CD - order placed. 5. Pt has a FU appt on 09/20/21 in the GI clinic with Dr Silva Procedures Date of Service Date of Service: 08/20/21
[2021-08-20] MEDS: amLODIPine Besylate 5 MG TABLET PO (16:19)
[2021-08-20] MEDS: Metoprolol Tartrate 50 MG TABLET PO ×2 (16:19→20:13)
[2021-08-20] MEDS: 0.9 % Sodium Chloride Flush 3 ML SYRINGE IVFLUSH (20:07)
[2021-08-20] MEDS: Zolpidem Tartrate 5 MG TABLET PO (20:14)
[2021-08-21] VITALS (8 sets, daily range): BP systolic 140–159; BP diastolic 77–81; PULSE 56–59; RESP 16–18; TEMP 36.2–36.8; O2SAT 96–98
[2021-08-21] MEDS: Heparin Sodium,Porcine 5,000 UNIT/ML VIAL 5000 UNIT SUBCUT ×3 (03:34→17:59)
[2021-08-21] MEDS: Omeprazole 20 MG CAPSULE.DR PO (07:01)
[2021-08-21 07:19] LABS: C Reactive Protein 4.03 mg/dL (< or = 0.50)
[2021-08-21 07:35] LABS: Erythrocyte Sedimentation Rate 44 MM/HR (0-15)
--- NOTE | 2021-08-21 07:52 | P.PNGS_ITS ---
Subjective Subjective Date of Service: 08/21/21 Interval history: Reports abdominal pain, but passing flatus; no BM other than a small amount of liquid. Feels bloated; was able to tolerate clear liquids and asking for more food. He lost his IV last night, and his access is difficult. He is currently off IVFs. Physical Exam Vital Signs: Vital Signs: Last Vital Signs Temp 98.0 F 08/21/21 07:47 Pulse 59 08/21/21 07:47 Resp 18 08/21/21 07:47 BP 149/81 H 08/21/21 07:47 Pulse Ox 96 08/21/21 07:47 Body Mass Index 31.0 Const: Other: appear uncomfortable, but in no acute distress Resp: Other: breathing comfortably on room air GI: Other: distended, mild tympany to percussion. High-pitched bowel sounds present Skin: Other: warm, dry, no rash Procedures Date of Service Date of Service: 08/21/21 Progress Note: A&P Assessment and plan (1) Abdominal pain: Status: Acute (2) Inflammation of ileoanal pouch: Status: Acute (3) SBO (small bowel obstruction): Status: Acute Assessment and Plan: The patient has persistent abdominal pain but is passing flatus and a small amount of liquid stool. Abdomen is distended today with tympany to percussion. Will check an abdominal x-ray. The patient is requesting an increase in food. I will advance him to a full liquid diet but cautioned him to eat slowly. He was encouraged to get out of bed and ambulate. He will need a new IV. Fall Risk Details Current Medications: Current Medications Amlodipine Besylate (Amlodipine Besylate 5 Mg Tablet) 5 mg PO DAILY [facility] Last Admin: 08/20/21 16:19 Dose: 5 mg Documented by: Gabapentin (Gabapentin 100 Mg Capsule) 100 mg PO TID [facility] Last Admin: 08/20/21 20:15 Dose: 100 mg Documented by: Heparin Sodium (Porcine) (Heparin Sodium,Porcine 5,000 Unit/Ml Vial) 5,000 unit SUBCUT Q8H [facility] Last Admin: 08/21/21 03:34 Dose: 5,000 unit Documented by: Sodium Chloride (Ns) 1,000 mls @ 80 mls/hr IVCONT .[id number] [facility] Last Infusion: 08/21/21 07:21 Dose: Infused Documented by: Lidocaine (Lidocaine 4 % Patch Adh..Patch) 1 patch TRANSDERMA DAILY [facility] Mesalamine (Mesalamine 400 Mg Cap.Drtab.) 800 mg PO TID [facility] Last Admin: 08/20/21 20:06 Dose: 800 mg Documented by: Methadone HCl (Methadone Hcl 20 Mg/2 Ml Oral.Conc) 25 mg PO DAILY [facility] Last Admin: 08/20/21 10:56 Dose: 25 mg Documented by: Metoprolol Tartrate (Metoprolol Tartrate 50 Mg Tablet) 50 mg PO BID [facility]; Protocol Last Admin: 08/20/21 20:13 Dose: 50 mg Documented by: Morphine Sulfate (Morphine Sulfate 4 Mg/Ml Cartridge) 3 mg IVPUSH Q3H PRN; Protocol PRN Reason: pain, severe Last Admin: 08/20/21 20:06 Dose: 3 mg Documented by: Omeprazole (Omeprazole 20 Mg Capsule.Dr) 20 mg PO DAILY@0630 [facility] Last Admin: 08/21/21 07:01 Dose: 20 mg Documented by: Sodium Chloride (0.9 % Sodium Chloride Flush 3 Ml Syringe) [facility] Last Admin: 08/21/21 07:21 Dose: Not Given Documented by: Zolpidem Tartrate (Zolpidem Tartrate 5 Mg Tablet) 5 mg PO BEDTIME PRN PRN Reason: Insomnia Zolpidem Tartrate (Zolpidem Tartrate 5 Mg Tablet) 5 mg PO BEDTIME [facility] Last Admin: 08/20/21 20:14 Dose: 5 mg Documented by: Time Spent With Patient Time: Total time spent is greater than 50% in coordination of care (as documented) at patient's floor/unit and/or counseling patient: Time with patient: 15 - 24 minutes Quality Stroke Does the patient have a stroke diagnosis?: No VTE Prior VTE?: No VTE Risk Level:: Medical - moderate - high VTE Device Contraindication: N/A - Device Ordered VTE Drug Contraindication: N/A - Med Ordered
[2021-08-21] MEDS: Gabapentin 100 MG CAPSULE PO ×3 (09:53→21:05)
[2021-08-21] MEDS: Mesalamine 400 MG CAP.DRTAB. 800 MG PO ×3 (09:53→21:05)
[2021-08-21] MEDS: Lidocaine 4 % Patch ADH..PATCH 1 PATCH TRANSDERMA (09:53)
[2021-08-21] MEDS: amLODIPine Besylate 5 MG TABLET PO (09:54)
[2021-08-21] MEDS: methADONE HCl 20 MG/2 ML ORAL.CONC 25 MG PO (09:54)
[2021-08-21] MEDS: Metoprolol Tartrate 50 MG TABLET PO ×2 (09:54→21:05)
[2021-08-21] MEDS: Morphine Sulfate 4 MG/ML CARTRIDGE 3 MG IVPUSH ×4 (10:01→21:13)
[2021-08-21] MEDS: 0.9 % Sodium Chloride 1,000 ML 80 ML IVCONT ×3 (10:02→22:07)
--- NOTE | 2021-08-21 11:37 | HO.PM.IMPN ---
Subjective Subjective Date of Service: 08/21/21 <EDU Mitchell - Last Filed: 08/21/21 11:43> 08/21/21 <Herb Laird MD - Last Filed: 08/21/21 12:29> Interval History: Seen and examined this morning Follow-up consult for abdominal pain, SBO no overnight events abdominal pain improving; passing flatus, liquid stool <EDU Mitchell - Last Filed: 08/21/21 11:43> Review of Systems Review of Systems: Yes all other systems are reviewed and are negative <EDU Mitchell - Last Filed: 08/21/21 11:43> Constitutional Constitutional: Denies chills and Denies fever(s) <EDU Mitchell - Last Filed: 08/21/21 11:43> Cardiovascular Cardiovascular: Denies chest pain <EDU Mitchell - Last Filed: 08/21/21 11:43> Respiratory Respiratory: Denies cough <EDU Mitchell - Last Filed: 08/21/21 11:43> Physical Exam Vital Signs: Vital Signs: Last Vital Signs Temp 98.0 F 08/21/21 07:47 Pulse 59 08/21/21 09:54 Resp 17 08/21/21 10:01 BP 149/81 H 08/21/21 09:54 Pulse Ox 96 08/21/21 07:47 Body Mass Index 31.0 <EDU Mitchell - Last Filed: 08/21/21 11:43> Const: Nutritional Appearance: well nourished <EDU Mitchell - Last Filed: 08/21/21 11:43> Orientation/consciousness: patient oriented x3 <EDU Mitchell Last Filed: 08/21/21 11:43> HENMT: Head: Yes normocephalic and Yes atraumatic <EDU Mitchell Last Filed: 08/21/21 11:43> Eyes: Sclerae: sclerae normal <EDU Mitchell Last Filed: 08/21/21 11:43> Chest: Chest palpation & inspection: normal inspection of the chest <EDU Mitchell - Last Filed: 08/21/21 11:43> Resp: Effort & Inspection: normal respiratory effort and no respiratory distress <EDU Mitchell Last Filed: 08/21/21 11:43> Cardio: Rate: regular rate <EDU Mitchell Last Filed: 08/21/21 11:43> Rhythm: regular rhythm <EDU Mitchell Last Filed: 08/21/21 11:43> GI: Other: generalized TTP, soft, non-distended; hyperactive bowel sounds <EDU Mitchell Last Filed: 08/21/21 11:43> Neuro: General: patient oriented x3 <EDU Mitchell Last Filed: 08/21/21 11:43> Cranial nerves: Yes CN's II-XII intact bilaterally and Yes Bilaterally intact EOM present <EDU Mitchell Last Filed: 08/21/21 11:43> Objective Data Active Medications Amlodipine Besylate (Amlodipine Besylate 5 Mg Tablet) 5 mg PO DAILY [facility] Last Admin: 08/21/21 09:54 Dose: 5 mg Documented by: COTEMA Gabapentin (Gabapentin 100 Mg Capsule) 100 mg PO TID [facility] Last Admin: 08/21/21 09:53 Dose: 100 mg Documented by: COTEMA Heparin Sodium (Porcine) (Heparin Sodium,Porcine 5,000 Unit/Ml Vial) 5,000 unit SUBCUT Q8H [facility] Last Admin: 08/21/21 11:25 Dose: 5,000 unit Documented by: COTEMA Sodium Chloride (Ns) 1,000 mls @ 80 mls/hr IVCONT .[id number] [facility] Last Admin: 08/21/21 10:02 Dose: 80 mls/hr Documented by: FELIPEEMA Lidocaine (Lidocaine 4 % Patch Adh..Patch) 1 patch TRANSDERMA DAILY [facility] Last Admin: 08/21/21 09:53 Dose: 1 patch Documented by: COTEMA Mesalamine (Mesalamine 400 Mg Cap.Drtab.) 800 mg PO TID [facility] Last Admin: 08/21/21 09:53 Dose: 800 mg Documented by: COTEMA Methadone HCl (Methadone Hcl 20 Mg/2 Ml Oral.Conc) 25 mg PO DAILY [facility] Last Admin: 08/21/21 09:54 Dose: 25 mg Documented by: COTEMA Metoprolol Tartrate (Metoprolol Tartrate 50 Mg Tablet) 50 mg PO BID [facility]; Protocol Last Admin: 08/21/21 09:54 Dose: 50 mg Documented by: COTEMA Morphine Sulfate (Morphine Sulfate 4 Mg/Ml Cartridge) 3 mg IVPUSH Q3H PRN; Protocol PRN Reason: pain, severe Last Admin: 08/21/21 10:01 Dose: 3 mg Documented by: COTEMA Omeprazole (Omeprazole 20 Mg Capsule.Dr) 20 mg PO DAILY@0630 [facility] Last Admin: 08/21/21 07:01 Dose: 20 mg Documented by: LABELLN Sodium Chloride (0.9 % Sodium Chloride Flush 3 Ml Syringe) 3 ml IVFLUSH QSHIFT [facility] Last Admin: 08/21/21 07:21 Dose: Not Given Documented by: COTEMA Non-Admin Reason: No Access Zolpidem Tartrate (Zolpidem Tartrate 5 Mg Tablet) 5 mg PO BEDTIME PRN PRN Reason: Insomnia Zolpidem Tartrate (Zolpidem Tartrate 5 Mg Tablet) 5 mg PO BEDTIME [facility] Last Admin: 08/20/21 20:14 Dose: 5 mg Documented by: LABELLN <EDU Mitchell - Last Filed: 08/21/21 11:43> Labs CBC & Chem 7: : 08/19/21 16:08 08/19/21 16:08 <EDU Mitchell - Last Filed: 08/21/21 11:43> Labs: Laboratory Results - last 24 hr 08/21/21 08/21/21 05:49 05:50 ESR 44 H C-Reactive Protein 4.03 H <EDU Mitchell - Last Filed: 08/21/21 11:43> Assessment and Plan (1) HTN (hypertension): Status: Acute <EDU Mitchell - Last Filed: 08/21/21 11:43> Assessment and Plan: 56-year-old male with past medical history of inflammatory bowel disease, hyperlipidemia, OUD on methadone presents the hospital with abdominal pain found to have small-bowel obstruction, admitted to the surgical service hospitalists were consulted for small-bowel obstruction Management per surgical team GI following hypertension BP stable Continue formulary equivalent for felodipine (amlodipine) and metoprolol CKD3 Creatinine at baseline Follow BMP hyperlipidemia -hold statin h/o OUD -continue methadone Attending: Dr. Laird <EDU Mitchell - Last Filed: 08/21/21 11:43> 56-year-old male with past medical history of inflammatory bowel disease, hyperlipidemia, OUD on methadone presents the hospital with abdominal pain found to have small-bowel obstruction, admitted to the surgical service hospitalists were consulted for small-bowel obstruction Management per surgical team GI following hypertension BP stable Continue formulary equivalent for felodipine (amlodipine) and metoprolol CKD3 Creatinine at baseline Follow BMP hyperlipidemia -hold statin h/o OUD -continue methadone Attending: Dr. Laird Patient and examined and discussed all finding with EDU and I agree with above. --MD Tracee <Herb Laird MD - Last Filed: 08/21/21 12:29> Quality Stroke Does the patient have a stroke diagnosis?: No <EDU Mitchell - Last Filed: 08/21/21 11:43> VTE Prior VTE?: No <EDU Mitchell - Last Filed: 08/21/21 11:43> VTE Risk Level:: Medical - moderate - high <EDU Mitchell - Last Filed: 08/21/21 11:43> VTE Device Contraindication: N/A - Device Ordered <EDU Mitchell - Last Filed: 08/21/21 11:43> VTE Drug Contraindication: N/A - Med Ordered <EDU Mitchell - Last Filed: 08/21/21 11:43>
[2021-08-21] MEDS: Zolpidem Tartrate 5 MG TABLET PO (21:05)
[2021-08-22] VITALS (7 sets, daily range): BP systolic 135–170; BP diastolic 76–91; PULSE 60–65; RESP 16–18; TEMP 36.3–37.1; O2SAT 96–99
[2021-08-22] MEDS: Heparin Sodium,Porcine 5,000 UNIT/ML VIAL 5000 UNIT SUBCUT ×3 (02:51→20:47)
[2021-08-22] MEDS: Morphine Sulfate 4 MG/ML CARTRIDGE 3 MG IVPUSH ×3 (02:51→10:19)
[2021-08-22] MEDS: Omeprazole 20 MG CAPSULE.DR PO (05:41)
[2021-08-22 05:57] LABS: MANUAL DIFF FLAG NO
[2021-08-22 06:29] LABS: Basophils Percent Auto 0.3 % (0-2); Eosinophils Absolute Auto 0.2 X10*3/uL (0.0-0.4); Eosinophils Percent Auto 4.9 % (0-4); Hematocrit 32.5 % (42-52); Hemoglobin 10.3 g/dl (14.0-18.0); Imm Gran Abs Auto 0.01 X10*3/uL (0.00-0.03); Imm Gran Pct Auto 0.3 % (0.0-0.4); Lymphocytes Absolute Auto 1.5 X10*3/uL (1.2-4.9); Lymphocytes Percent Auto 38.8 % (20-40); Mean Corpuscular HGB Conc 31.7 g/dl (31.0-36.0); Mean Corpuscular Hemoglobin 26.9 pg (27.0-33.0); Mean Corpuscular Volume 84.9 fL (80-98); Mean Platelet Volume 9.5 fL (9.4-12.4); Monocytes Absolute Auto 0.4 X10*3/uL (0.1-1.2); Monocytes Percent Auto 10.6 % (2-11); Neutrophils Absolute Auto 1.8 X10*3/uL (2.0-8.3); Neutrophils Percent Auto 45.1 % (45-73); Platelet Count 241 X10*3/uL (160-400); Red Blood Count 3.83 X10*6/uL (4.60-5.80); Red Cell Distribution Width 15.4 % (11.0-16.0); White Blood Count 3.9 X10*3/uL (4.8-10.8)
[2021-08-22 06:36] LABS: Anion Gap 12 (12-20); Blood Urea Nitrogen 16 mg/dL (9-16); Calcium 8.7 mg/dL (8.4-10.2); Carbon Dioxide 28 mmol/L (22-29); Chloride 103 mmol/L (96-108); Creatinine Clr Calc Pharmacy 71.1; Estimated Glomerular Filt Rate 56; Glucose Random 85 mg/dL (60-115); Potassium 4.1 mmol/L (3.3-5.1); Sodium 139 mmol/L (135-145)
[2021-08-22] MEDS: 0.9 % Sodium Chloride 1,000 ML 80 ML IVCONT (07:46)
--- NOTE | 2021-08-22 08:20 | P.PNGS_ITS ---
Subjective Subjective Date of Service: 08/22/21 Interval history: Patient feels improved with decreased abdominal pain, moving bowels passing flatus. He tolerated a full liquid diet yesterday and is hungry. Physical Exam Vital Signs: Vital Signs: Last Vital Signs Temp 97.4 F 08/22/21 07:38 Pulse 61 08/22/21 07:38 Resp 18 08/22/21 07:38 BP 135/76 08/22/21 07:38 Pulse Ox 99 08/22/21 07:38 Body Mass Index 31.0 Resp: Other: Breathing comfortably on room air, no respiratory distress GI: Other: much softer, nontender to deep palpation, no tympany to percussion, normal bowel sounds. Skin: Other: Warm, dry, no rash Extrem: Other: no edema Procedures Date of Service Date of Service: 08/22/21 Progress Note: A&P Assessment and plan (1) Inflammation of ileoanal pouch: Status: Acute (2) Abdominal pain: Status: Acute (3) SBO (small bowel obstruction): Status: Acute Assessment and Plan: patient is much improved with decreased abdominal pain and decreased abdominal distension. He is now moving his bowels better and feels much improved. I will advance him to a regular diet. Possible discharge in a.m. if this is well tolerated. Fall Risk Details Current Medications: Current Medications Amlodipine Besylate (Amlodipine Besylate 5 Mg Tablet) 5 mg PO DAILY [facility] Last Admin: 08/21/21 09:54 Dose: 5 mg Documented by: Gabapentin (Gabapentin 100 Mg Capsule) 100 mg PO TID [facility] Last Admin: 08/21/21 21:05 Dose: 100 mg Documented by: Heparin Sodium (Porcine) (Heparin Sodium,Porcine 5,000 Unit/Ml Vial) 5,000 unit SUBCUT Q8H [facility] Last Admin: 08/22/21 02:51 Dose: 5,000 unit Documented by: Sodium Chloride (Ns) 1,000 mls @ 80 mls/hr IVCONT .[id number] [facility] Last Admin: 08/22/21 07:46 Dose: 80 mls/hr Documented by: Lidocaine (Lidocaine 4 % Patch Adh..Patch) 1 patch TRANSDERMA DAILY [facility] Last Admin: 08/21/21 09:53 Dose: 1 patch Documented by: Mesalamine (Mesalamine 400 Mg Cap.Drtab.) 800 mg PO TID [facility] Last Admin: 08/21/21 21:05 Dose: 800 mg Documented by: Methadone HCl (Methadone Hcl 20 Mg/2 Ml Oral.Conc) 25 mg PO DAILY [facility] Last Admin: 08/21/21 09:54 Dose: 25 mg Documented by: Metoprolol Tartrate (Metoprolol Tartrate 50 Mg Tablet) 50 mg PO BID [facility]; Protocol Last Admin: 08/21/21 21:05 Dose: 50 mg Documented by: Morphine Sulfate (Morphine Sulfate 4 Mg/Ml Cartridge) 3 mg IVPUSH Q3H PRN; Protocol PRN Reason: pain, severe Last Admin: 08/22/21 05:55 Dose: 3 mg Documented by: Omeprazole (Omeprazole 20 Mg Capsule.Dr) 20 mg PO DAILY@0630 [facility] Last Admin: 08/22/21 05:41 Dose: 20 mg Documented by: Sodium Chloride (0.9 % Sodium Chloride Flush 3 Ml Syringe) 3 ml IVFLUSH QSHIFT [facility] Last Admin: 08/22/21 07:08 Dose: Not Given Documented by: Zolpidem Tartrate (Zolpidem Tartrate 5 Mg Tablet) 5 mg PO BEDTIME PRN PRN Reason: Insomnia Zolpidem Tartrate (Zolpidem Tartrate 5 Mg Tablet) 5 mg PO BEDTIME [facility] Last Admin: 08/21/21 21:05 Dose: 5 mg Documented by: Time Spent With Patient Time: Total time spent is greater than 50% in coordination of care (as documented) at patient's floor/unit and/or counseling patient: Time with patient: 15 - 24 minutes Quality Stroke Does the patient have a stroke diagnosis?: No VTE Prior VTE?: No VTE Risk Level:: Medical - moderate - high VTE Device Contraindication: N/A - Device Ordered VTE Drug Contraindication: N/A - Med Ordered
[2021-08-22] MEDS: Metoprolol Tartrate 50 MG TABLET PO ×2 (08:32→20:47)
[2021-08-22] MEDS: Gabapentin 100 MG CAPSULE PO ×3 (08:32→20:48)
[2021-08-22] MEDS: methADONE HCl 20 MG/2 ML ORAL.CONC 25 MG PO (08:32)
[2021-08-22] MEDS: Lidocaine 4 % Patch ADH..PATCH 1 PATCH TRANSDERMA (08:32)
[2021-08-22] MEDS: Mesalamine 400 MG CAP.DRTAB. 800 MG PO ×3 (08:32→20:47)
[2021-08-22] MEDS: amLODIPine Besylate 5 MG TABLET PO (08:32)
--- NOTE | 2021-08-22 10:26 | P.PNIM_ITS ---
Subjective Subjective Date of Service: 08/22/21 Interval History: seen and and this morning Abdominal pain improved, was able to tolerate full liquid diet No specific complaints Review of Systems Review of Systems: Yes all other systems are reviewed and are negative Constitutional Constitutional: Denies chills and Denies fever(s) Cardiovascular Cardiovascular: Denies chest pain Respiratory Respiratory: Denies cough Physical Exam Vital Signs: Vital Signs: Last Vital Signs Temp 97.4 F 08/22/21 07:38 Pulse 61 08/22/21 08:32 Resp 18 08/22/21 10:19 BP 135/76 08/22/21 08:32 Pulse Ox 99 08/22/21 07:38 Body Mass Index 31.0 Const: Nutritional Appearance: well nourished Orientation/consciousness: patient oriented x3 HENMT: Head: Yes normocephalic and Yes atraumatic Eyes: Sclerae: sclerae normal Chest: Chest palpation & inspection: normal inspection of the chest Resp: Effort & Inspection: normal respiratory effort and no respiratory distress Cardio: Rate: regular rate Rhythm: regular rhythm GI: Other: soft, non-distended; non-tender Neuro: General: patient oriented x3 Cranial nerves: Yes CN's II-XII intact bilaterally and Yes Bilaterally intact EOM present Objective Data Active Medications Amlodipine Besylate (Amlodipine Besylate 5 Mg Tablet) 5 mg PO DAILY [facility] Last Admin: 08/22/21 08:32 Dose: 5 mg Documented by: COTEMA Gabapentin (Gabapentin 100 Mg Capsule) 100 mg PO TID [facility] Last Admin: 08/22/21 08:32 Dose: 100 mg Documented by: COTEMA Heparin Sodium (Porcine) (Heparin Sodium,Porcine 5,000 Unit/Ml Vial) 5,000 unit SUBCUT Q8H [facility] Last Admin: 08/22/21 10:19 Dose: 5,000 unit Documented by: COTEMA Sodium Chloride (Ns) 1,000 mls @ 80 mls/hr IVCONT .[id number] [facility] Last Admin: 08/22/21 07:46 Dose: 80 mls/hr Documented by: FELIPEEMA Lidocaine (Lidocaine 4 % Patch Adh..Patch) 1 patch TRANSDERMA DAILY [facility] Last Admin: 08/22/21 08:32 Dose: 1 patch Documented by: COTEMA Mesalamine (Mesalamine 400 Mg Cap.Drtab.) 800 mg PO TID [facility] Last Admin: 08/22/21 08:32 Dose: 800 mg Documented by: COTEMA Methadone HCl (Methadone Hcl 20 Mg/2 Ml Oral.Conc) 25 mg PO DAILY [facility] Last Admin: 08/22/21 08:32 Dose: 25 mg Documented by: COTEMA Metoprolol Tartrate (Metoprolol Tartrate 50 Mg Tablet) 50 mg PO BID [facility]; Prot ocol Last Admin: 08/22/21 08:32 Dose: 50 mg Documented by: COTEMA Morphine Sulfate (Morphine Sulfate 4 Mg/Ml Cartridge) 3 mg IVPUSH Q3H PRN; Protocol PRN Reason: pain, severe Last Admin: 08/22/21 10:19 Dose: 3 mg Documented by: COTEMA Omeprazole (Omeprazole 20 Mg Capsule.Dr) 20 mg PO DAILY@0630 [facility] Last Admin: 08/22/21 05:41 Dose: 20 mg Documented by: KYLEE Sodium Chloride (0.9 % Sodium Chloride Flush 3 Ml Syringe) [facility] Last Admin: 08/22/21 07:08 Dose: Not Given Documented by: PAWAN Non-Admin Reason: IV Running Zolpidem Tartrate (Zolpidem Tartrate 5 Mg Tablet) 5 mg PO BEDTIME PRN PRN Reason: Insomnia Zolpidem Tartrate (Zolpidem Tartrate 5 Mg Tablet) 5 mg PO BEDTIME [facility] Last Admin: 08/21/21 21:05 Dose: 5 mg Documented by: KYLEE Labs CBC & Chem 7: 08/22/21 05:24 08/22/21 05:24 Labs: Laboratory Results - last 24 hr 08/22/21 08/22/21 05:24 05:24 MCV 84.9 MCH 26.9 L MCHC 31.7 RDW 15.4 Plt Count 241 MPV 9.5 Immature Gran % (Auto) 0.3 Neut % (Auto) 45.1 Lymph % (Auto) 38.8 [place] % (Auto) 10.6 Eos % (Auto) 4.9 H Baso % (Auto) 0.3 Lymph # (Auto) 1.5 [place] # (Auto) 0.4 Eos # (Auto) 0.2 Baso # (Auto) 0.0 Abs Immat Gran (auto) 0.01 Absolute Neuts (auto) 1.8 L Absolute Nucleated RBC 0.000 Nucleated RBC % (auto) 0.0 Anion Gap 12 Estim Creat Clear Calc 71.1 Estimated GFR 56 Random Glucose 85 Calcium 8.7 Assessment and Plan (1) Inflammation of ileoanal pouch: Status: Acute (2) SBO (small bowel obstruction): Status: Acute Assessment and Plan: 56-year-old male with past medical history of inflammatory bowel disease, hyperlipidemia, OUD on methadone presents the hospital with abdominal pain found to have small-bowel obstruction, admitted to the surgical service hospitalists were consulted for small-bowel obstruction Management per surgical team GI following Improving with conservative management hypertension BP stable Continue formulary equivalent for felodipine (amlodipine) and metoprolol CKD3 Creatinine at baseline Follow BMP hyperlipidemia -hold statin h/o OUD -continue methadone No other acute medication conditions at this time. Will sign off. Please feel free to us of any other medical issues arise. Attending: Dr. Alvarez Quality Stroke Does the patient have a stroke diagnosis?: No VTE Prior VTE?: No VTE Risk Level:: Medical - moderate - high VTE Device Contraindication: N/A - Device Ordered VTE Drug Contraindication: N/A - Med Ordered
--- NOTE | 2021-08-22 11:28 | PC.NURSE ---
Patient IV access infiltrated, IV fluids disconnected and IV removed. Patient is difficult to obtain IV access. Patient is tolerating regular diet, drinking fluids, and pain is decreased. Dr. Briceno made aware, IV fluids discontinued, pain medications changed to PO. Per Dr. Briceno patient is okay to not have IV access.
[2021-08-22] MEDS: oxyCODONE HCl Immed Release 5 MG TABLET PO (14:12)
[2021-08-22] MEDS: oxyCODONE HCl Immed Release 5 MG TABLET 10 MG PO (20:02)
[2021-08-22] MEDS: Zolpidem Tartrate 5 MG TABLET PO (20:47)
[2021-08-23] MEDS: oxyCODONE HCl Immed Release 5 MG TABLET 10 MG PO ×3 (01:54→09:41)
[2021-08-23] MEDS: Heparin Sodium,Porcine 5,000 UNIT/ML VIAL 5000 UNIT SUBCUT (05:14)
[2021-08-23] MEDS: Omeprazole 20 MG CAPSULE.DR PO (05:14)
[2021-08-23 07:33] VITALS: BP 149/71; PULSE 58; RESP 18; TEMP 36.6; O2SAT 96
[2021-08-23 08:08] VITALS: BP 149/71; PULSE 58
[2021-08-23] MEDS: Mesalamine 400 MG CAP.DRTAB. 800 MG PO (08:08)
[2021-08-23] MEDS: amLODIPine Besylate 5 MG TABLET PO (08:08)
[2021-08-23 08:09] VITALS: BP 149/71; PULSE 58
[2021-08-23] MEDS: Gabapentin 100 MG CAPSULE PO (08:09)
[2021-08-23] MEDS: Metoprolol Tartrate 50 MG TABLET PO (08:09)
[2021-08-23] MEDS: Lidocaine 4 % Patch ADH..PATCH 1 PATCH TRANSDERMA (08:09)
[2021-08-23] MEDS: methADONE HCl 20 MG/2 ML ORAL.CONC 25 MG PO (08:09)
--- NOTE | 2021-08-23 09:09 | P.PNGS_ITS ---
Subjective Subjective Date of Service: 08/23/21 Interval history: says he continues to do well passing flatus, has BMs tolerating diet Physical Exam Vital Signs: Vital Signs: Last Vital Signs Temp 97.9 F 08/23/21 07:33 Pulse 58 08/23/21 08:09 Resp 18 08/23/21 07:33 BP 149/71 H 08/23/21 08:09 Pulse Ox 96 08/23/21 07:33 Body Mass Index 31.0 Const: Other: Chemistry 08/22/21 05:24 Sodium 139 Potassium 4.1 Carbon Dioxide 28 BUN 16 Creatinine 1.32 Calcium 8.7 Hematology 08/22/21 05:24 WBC 3.9 L Hgb 10.3 L Plt Count 241 General: comfortable and no acute distress Nutritional Appearance: malnourished and obese Resp: Effort & Inspection: normal respiratory effort and able to speak in complete sentences Cardio: Rate: regular rate GI: Palpation (GI): Soft to palpation, not firm, nontender and no guarding Procedures Date of Service Date of Service: 08/23/21 Progress Note: A&P Assessment and plan (1) Inflammation of ileoanal pouch: Status: Acute Assessment and Plan: much improved clinically tolerating diet good GI function wants to go home instructed him to ffup with his GI - Dr. Silva he understands that he may need permanent ileostomy if this becomes a recurrent problem Fall Risk Details Current Medications: Current Medications Amlodipine Besylate (Amlodipine Besylate 5 Mg Tablet) 5 mg PO DAILY [facility] Last Admin: 08/23/21 08:08 Dose: 5 mg Documented by: Gabapentin (Gabapentin 100 Mg Capsule) 100 mg PO TID [facility] Last Admin: 08/23/21 08:09 Dose: 100 mg Documented by: Heparin Sodium (Porcine) (Heparin Sodium,Porcine 5,000 Unit/Ml Vial) 5,000 unit SUBCUT Q8H [facility] Last Admin: 08/23/21 05:14 Dose: 5,000 unit Documented by: Lidocaine (Lidocaine 4 % Patch Adh..Patch) 1 patch TRANSDERMA DAILY [facility] Last Admin: 08/23/21 08:09 Dose: 1 patch Documented by: Mesalamine (Mesalamine 400 Mg Cap.Drtab.) 800 mg PO TID [facility] Last Admin: 08/23/21 08:08 Dose: 800 mg Documented by: Methadone HCl (Methadone Hcl 20 Mg/2 Ml Oral.Conc) 25 mg PO DAILY [facility] Last Admin: 08/23/21 08:09 Dose: 25 mg Documented by: Metoprolol Tartrate (Metoprolol Tartrate 50 Mg Tablet) 50 mg PO BID [facility]; Protocol Last Admin: 08/23/21 08:09 Dose: 50 mg Documented by: Omeprazole (Omeprazole 20 Mg Capsule.Dr) 20 mg PO DAILY@0630 [facility] Last Admin: 08/23/21 05:14 Dose: 20 mg Documented by: Oxycodone HCl (Oxycodone Hcl Immed Release 5 Mg Tablet) 10 mg PO Q4H PRN PRN Reason: Pain, Severe (Pain Scale 7-10) Last Admin: 08/23/21 05:57 Dose: 10 mg Documented by: Oxycodone HCl (Oxycodone Hcl Immed Release 5 Mg Tablet) 5 mg PO Q4H PRN PRN Reason: Pain, Moderate (Pain Scale 4-6 Last Admin: 08/22/21 14:12 Dose: 5 mg Documented by: Zolpidem Tartrate (Zolpidem Tartrate 5 Mg Tablet) 5 mg PO BEDTIME PRN PRN Reason: Insomnia Zolpidem Tartrate (Zolpidem Tartrate 5 Mg Tablet) 5 mg PO BEDTIME [facility] Last Admin: 08/22/21 20:47 Dose: 5 mg Documented by: Time Spent With Patient Time: Total time spent is greater than 50% in coordination of care (as documented) at patient's floor/unit and/or counseling patient: Time with patient: 15 - 24 minutes Quality Stroke Does the patient have a stroke diagnosis?: No VTE Prior VTE?: No VTE Risk Level:: Medical - moderate - high VTE Device Contraindication: N/A - Device Ordered VTE Drug Contraindication: N/A - Med Ordered
--- NOTE | 2021-08-23 09:33 | MHC.CM.PN ---
PATIENT IS DISCHARGED HOME - SELF CARE. NO C TRANSPORT AVAILABLE TODAY AND PATIENT TELLS RN THAT HE IS WALKING HOME.
--- NOTE | 2021-08-24 15:04 | PM.DS ---
DS: Providers Provider Date of Service: 08/23/21 Date of admission: 08/19/21 19:39 Primary care physician: Unknown Physician Attending physician on admission: Richard Lopez Consults: 08/19/21 19:43 Consult to Hospitalist Routine Consulting Provider: Hospitalist Reason For Exam: hypertension 08/20/21 08:15 Consult to Gastroenterology Routine Consulting Provider: Margot Silva Reason for consultation: pt known to you, ileoanal anastomosis Has provider been notified: No Attending physician on discharge: Richard Lopez DS: Diagnosis Discharge Diagnosis (1) Inflammation of ileoanal pouch: Status: Acute DS: Summary Hospital Course Hospital Course: BRIEF HPI: ? Jayden Pierce is a 56 year old male with an extensive surgical history and multiple medical comorbidities who presented to the ED with complaints of abdominal pain. The patient has a history of ulcerative colitis and underwent total colectomy with a diverting ileostomy in the at [facility], ultimately had the ileostomy reversed, and has had an ileoanal pouch since then. The patient has had multiple admissions for abdominal pain in 2020, with the most recent in July.? He reports problems with constipation since the pouch with more frequent episodes of abdominal pain for the past several months. He had a pouchoscopy with Dr. Silva which showed suggestion of pouchitis.?He has been on multiple courses of Cipro and Flagyl for this. He reports he is scheduled to have another pouchoscopy with Dr. Silva soon. This current episode of pain began two days prior. It was associated with bloating and his abdomen becoming rock hard . The pain was diffuse but most significant periumbilically. He developed nausea and had one episode of vomiting in the ED. He reports his last bowel movement was last night and then he had multiple episodes of loose stool in the ED. Since this, he feels much better with less pain and bloating. He has been passing flatus occasionally. This episode of pain feels similar to his previous. In the ED, work up included a CT scan which demonstrated dilated, fluid-filled stomach and loops of proximal small bowel in the left mid and lower abdomen with wall thickening at the ileoanal anastomosis and some stranding of the soft tissues in the presacral space which is similar and unchanged to prior exams. HOSPITAL COURSE: A hospitalist and GI consult were obtained. His home medications were resumed. The patient had an uncomplicated hospital stay. He slowly improved symptomatically and clinically with decreasing abdominal pain and distention with conservative management. He began to pass more flatus and eventually bowel movements. His diet was advanced to full liquid and then low residue. On the day of discharge, he was tolerating a solid diet without any abdominal pain, N/V. He had good GI function. His abdomen was benign. He felt ready for discharge. He was discharged to home on 08/23/21 in stable condition. He has a follow up appointment with Dr. Silva in a few weeks. Status at Discharge Functional status at discharge: independent ambulation Overall status at discharge: patient is back to baseline Time Spent with Patient Time attestation: Total time spent providing and/or coordinating discharge services: Discharge coordination time: Greater than 30 minutes Quality: Stroke Does the patient have a stroke diagnosis?: No Physical Exam Vital Signs: Vital Signs: Last Vital Signs Temp 97.9 F 08/23/21 07:33 Pulse 58 08/23/21 08:09 Resp 18 08/23/21 07:33 BP 149/71 H 08/23/21 08:09 Pulse Ox 96 08/23/21 07:33 Body Mass Index 31.0 Discharge Plan Discharge Patient Disposition: Home, Self-Care Discharge Diagnosis: inflammation of ileal pouch Referrals: Margot Silva MD [Physician] - 1 Week Physician,Unknown J [Primary Care Provider] - 1 Week Discharge Medications: New oxycodone 5 mg tablet 5 mg PO Q6H PRN (Reason: pain) Qty: 10 RF: 0 Continued pramoxine [Proctofoam] 1 % foam 1 appl [place] BID Qty: 15 RF: 0 felodipine 5 mg tablet extended release 24 hr 1 tab PO DAILY RF: 0 pantoprazole 40 mg tablet,delayed release (DR/EC) 1 tab PO DAILY@0630 RF: 0 metoprolol tartrate 50 mg tablet 1 tab PO BID RF: 0 gabapentin 100 mg capsule 1 cap PO TID RF: 0 zolpidem 10 mg tablet 1 tab PO BEDTIME RF: 0 mesalamine 400 mg capsule (with del rel tablets) 2 cap PO TID RF: 0 rosuvastatin 40 mg tablet 1 tab PO BEDTIME RF: 0 methadone [Methadone Intensol] 10 mg/mL concentrate 27 mg PO DAILY RF: 0 cyanocobalamin (vitamin B-12) 1,000 mcg tablet 1 tab PO QAM RF: 0 ferrous gluconate 324 mg (38 mg iron) tablet 1 tab PO QAM RF: 0 clotrimazole 1 % cream 1 appl topical BID PRN (Reason: Rash) RF: 0 lidocaine 5 % adhesive patch,medicated 1 patch topical DAILY RF: 0 tinidazole 500 mg tablet 500 mg PO BID 10 Days Qty: 20 RF: 0 Discharge Orders: Discharge Order (Routine); Ordered 08/23/21 Ordered By: Richard Lopez Diet: other Activity on Discharge: As tolerated Stand Alone Forms: Patient Portal Discharge page Care Plan Goals: Control pouchitis and recurrent abdominal pain Health Concerns: Recurrent abdominal pain Plan of Treatment: Follow-up with GI Assessment: Doing well overall Discharge Date/Time: 08/23/21 09:42
== END 2021-08-23 09:42 | disposition home or self-care (01) ==
LOC: HO.ED 12:59 → HO.EDOVER 19:50 → HO.S3 08-20 07:15
PROVIDERS: Emergency Medicine Emergency Medical Services; Internal Medicine; Internal Medicine Gastroenterology; Surgery; Admitting Provider Surgery; Emergency Provider Emergency Medicine; Visit Provider Surgery
DX: R10.9 Unspecified abdominal pain (principal); K56.609 Unspecified intestinal obstruction, unspecified as to partial versus complete obstruction; R19.7 Diarrhea, unspecified; K91.850 Pouchitis; K51.90 Ulcerative colitis, unspecified, without complications; I12.9 Hypertensive chronic kidney disease with stage 1 through stage 4 chronic kidney disease, or unspecified chronic kidney disease; N18.9 Chronic kidney disease, unspecified; E78.5 Hyperlipidemia, unspecified; F11.20 Opioid dependence, uncomplicated; Z90.49 Acquired absence of other specified parts of digestive tract; Z88.8 Allergy status to other drugs, medicaments and biological substances; Z91.041 Radiographic dye allergy status; Z79.899 Other long term (current) drug therapy
CPT/HCPCS: 36415; 74021; 74176; 80048; 80053; 81001; 85025; 85652; 86140; 87493; 87635; 96361; 96372; 96374; 96375; 96376; 99218; 99285; J2270; J2405

== ENCOUNTER → 2021-10-19 09:47 | Outpatient (BNVA) | payer MEDICAID, SELFPAY | PROVIDERS: Visit Provider Internal Medicine | DX: Z51.81 Encounter for therapeutic drug level monitoring (principal); F11.20 Opioid dependence, uncomplicated | CPT/HCPCS: 80305; 99212 ==

== ENCOUNTER 2021-10-27 13:28 | Outpatient (REF) | payer MEDICAID, SELFPAY ==
[2021-10-27 17:31] LABS: Fentanyl, urine POSITIVE (Not Detect)
== END 2021-10-27 13:29 | disposition home or self-care (01) ==
LOC: HO.LNP 13:28
PROVIDERS: Visit Provider Internal Medicine
DX: F11.20 Opioid dependence, uncomplicated (principal); Z79.899 Other long term (current) drug therapy
CPT/HCPCS: 80305; 80307; 99212

== ENCOUNTER → 2021-11-01 10:43 | Outpatient (BNVA) | payer MEDICAID, SELFPAY | PROVIDERS: Visit Provider Internal Medicine | DX: Z51.81 Encounter for therapeutic drug level monitoring (principal); F11.20 Opioid dependence, uncomplicated | CPT/HCPCS: 80305; 99212 ==

== ENCOUNTER 2021-11-08 10:33 | Emergency (ER) | payer MEDICAID, SELFPAY | END 2021-11-08 13:35 | disposition left against medical advice (07) | PROVIDERS: Emergency Provider Emergency Medicine | DX: R68.89 Other general symptoms and signs (principal) ==

== ENCOUNTER → 2021-11-15 09:44 | Outpatient (BNVA) | payer MEDICAID, SELFPAY | DX: Z51.81 Encounter for therapeutic drug level monitoring (principal); F11.20 Opioid dependence, uncomplicated | CPT/HCPCS: 80305; 99211 ==

== ENCOUNTER 2021-11-22 10:38 | Outpatient (REF) | payer MEDICAID, SELFPAY ==
[2021-11-22 17:18] LABS: Fentanyl, urine POSITIVE (Not Detect)
== END 2021-11-22 10:39 | disposition home or self-care (01) ==
LOC: HO.LNP 10:38
PROVIDERS: Visit Provider Internal Medicine
DX: F11.20 Opioid dependence, uncomplicated (principal)
CPT/HCPCS: 80305; 80307; 99212

== ENCOUNTER → 2021-11-29 10:51 | Outpatient (BNVA) | payer MEDICAID, SELFPAY | PROVIDERS: Visit Provider Internal Medicine | DX: Z51.81 Encounter for therapeutic drug level monitoring (principal); F11.20 Opioid dependence, uncomplicated | CPT/HCPCS: 99212 ==

== ENCOUNTER 2021-12-13 10:33 | Outpatient (REF) | payer MEDICAID, SELFPAY ==
[2021-12-13 17:48] LABS: Fentanyl, urine POSITIVE (Not Detect)
== END 2021-12-13 10:34 | disposition home or self-care (01) ==
LOC: HO.LNP 10:33
PROVIDERS: Visit Provider Internal Medicine
DX: F11.20 Opioid dependence, uncomplicated (principal); Z51.81 Encounter for therapeutic drug level monitoring; Z79.899 Other long term (current) drug therapy
CPT/HCPCS: 80305; 80307; 99212

== ENCOUNTER 2021-12-27 10:18 | Outpatient (REF) | payer MEDICAID, SELFPAY ==
[2021-12-27 18:32] LABS: Fentanyl, urine POSITIVE (Not Detect)
[2022-01-05 08:13] LABS: Buprenorphine >2000; Naloxone >2000; Norbuprenorphine 56
== END 2021-12-27 10:19 | disposition home or self-care (01) ==
LOC: HO.LNP 10:18
PROVIDERS: Visit Provider Internal Medicine
DX: F11.20 Opioid dependence, uncomplicated (principal); Z79.899 Other long term (current) drug therapy
CPT/HCPCS: 80305; 80307; 80348; 80362; 99212

== ENCOUNTER → 2022-04-04 10:50 | Outpatient (BNVA) | payer MEDICAID, SELFPAY | PROVIDERS: Visit Provider Internal Medicine | DX: Z51.81 Encounter for therapeutic drug level monitoring (principal); F11.20 Opioid dependence, uncomplicated | CPT/HCPCS: 80305; 99212 ==

== ENCOUNTER → 2022-04-12 12:56 | Outpatient (BNVA) | payer MEDICAID, SELFPAY | PROVIDERS: Visit Provider Internal Medicine | DX: Z51.81 Encounter for therapeutic drug level monitoring (principal); F11.20 Opioid dependence, uncomplicated | CPT/HCPCS: 80305; 99212 ==

== ENCOUNTER 2022-04-22 11:12 | Emergency (ER) | payer MEDICAID, SELFPAY ==
[2022-04-22 11:24] VITALS: BP 170/90; PULSE 110
[2022-04-22 11:29] VITALS: BP 150/105; PULSE 119; RESP 18; TEMP 37.8; O2SAT 89; BMI 31.3
--- NOTE | 2022-04-22 11:45 | ED.OVERDOSE ---
HPI - Overdose General Chief Complaint: General Medical Stated Complaint: ?od Time Seen by Provider: 04/22/22 11:18 Source: patient and EMS Mode of arrival: EMS Limitations: other (Poor historian Singaporean-speaking) History of Present Illness HPI Narrative: 57-year-old male who is Singaporean-speaking and poor historian c a PMHx of ulcerative colitis status post total colectomy with pouch anastomosis previous bouts of pouchitis, Crohn's disease, HTN, HLD, CKD and opioid use disorder who is currently on an ankle monitoring bracelet presenting to the ED via EMS after possible accidental overdose although patient reports he does not do any drugs or alcohol. Reports he feels completely fine. Reports that he would like to be discharged as he has the renal appointment at 02:30 today. Reports that he just sat down because he was tired and did not sleep well last night. He denies any SI/HI/auditory visualizations thoughts of self-injury. He denies any dizziness, headaches, recent falls or trauma, chest pain or shortness of breath, sore throat, cough, dyspnea on exertion, orthopnea, palpitations, paresthesias, nausea/vomiting/diarrhea constipation, black or bloody stools, dysuria, hematuria, abnormal penile discharge, rashes, lower extremity edema or calf tenderness, recent travel or sick contacts or any other symptoms complaints or concerns at this time. 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) Timing confirmed by: other (Bystander) Treatments Prior to Arrival: none Related Data Home Medications Medication Instructions Recorded Confirmed felodipine 5 mg tablet,extended 1 tab PO DAILY 03/03/21 08/20/21 release 24 hr gabapentin 100 mg capsule 1 cap PO TID 03/03/21 08/20/21 mesalamine 400 mg capsule (with 2 cap PO TID 03/03/21 08/20/21 delayed release tablets inside) metoprolol tartrate 50 mg tablet 1 tab PO BID 03/03/21 08/20/21 pantoprazole 40 mg tablet,delayed 1 tab PO DAILY@0630 03/03/21 08/20/21 release rosuvastatin 40 mg tablet 1 tab PO BEDTIME 03/03/21 08/20/21 zolpidem 10 mg tablet 1 tab PO BEDTIME 03/03/21 08/20/21 ferrous gluconate 324 mg (38 mg 1 tab PO QAM 06/30/21 08/20/21 iron) tablet lidocaine 5 % topical patch 1 patch topical DAILY 08/20/21 08/20/21 Previous Rx's Medication Instructions Recorded tinidazole 500 mg tablet 500 mg PO BID 10 days #20 tabs 08/09/21 hydroxyzine pamoate 25 mg capsule 25 mg PO TID PRN itching 1 day #3 10/19/21 (Vistaril) caps buprenorphine 8 mg-naloxone 2 mg 2 film sublingual DAILY 14 days 04/12/22 sublingual film (Suboxone) #28 ea Allergies Allergy/AdvReac Type Severity Reaction Status Date / Time Iodinated Contrast Media Allergy Intermediate HIVES Verified 04/22/22 11:29 [IV CONTRAST] prednisone [PREDNISONE] Allergy Mild RASH Verified 04/22/22 11:29 Review of Systems Review of Systems: Constitutional : No Weight loss, No Fever, No Chills, No Night Sweats, No Fatigue, No Malaise ENT/Mouth : No Hearing loss, No Ear Pain, No Nasal Congestion, No Sinus Pain, No Hoarseness, No sore throat, No Rhinorrhea, No Swallowing Difficulty Eyes: No Eye Pain, No Swelling, No Redness, No Foreign Body, No Discharge, No Vision Changes Cardiovascular : No Chest Pain, No SOB, No Dyspnea on Exertion, No Orthopnea, No Edema, No Palpitations Respiratory : No Cough, No Sputum, No Wheezing, No Smoke Exposure, No Dyspnea Gastrointestinal : No Nausea, No Vomiting, No Diarrhea, No Constipation, No abdominal Pain, No Hematochezia, No Melena Genitourinary : no irregular bleeding, No Dysuria, No Urinary Frequency, No Hematuria, No Urinary Incontinence, No Urgency, No Flank Pain, No Urinary Flow Changes, No Hesitancy Musculoskeletal : No joint pain, No Myalgias, No Joint Swelling Skin : No Skin Lesions, No rash Neuro : No Weakness, No Numbness, No Paresthesias, No Loss of Consciousness, No Dizziness, No Headache Psych : No Anxiety/Panic, No Depression, No SI/HI/AH/VH, No Social Issues, Heme/Lymph: No Bruising, No Bleeding,No Lymphadenopathy Endocrine : No Polyuria, No Polydipsia, No Temperature Intolerance Yes all other systems are reviewed and are negative PMFSH Past Medical History Attestation statement: The following information was validated with the patient. Source: old records reviewed and nursing notes reviewed Medical History CKD (chronic kidney disease) Colitis Constipation Crohn's disease of both small and large intestine HLD (hyperlipidemia) HTN (hypertension) Opioid use disorder Ulcerative colitis Surgical History H/O cervical spine surgery H/O total colectomy History of colostomy reversal History of esophagogastroduodenoscopy (EGD) Hx of colonoscopy Family History Family History Mother Stroke Diabetes mellitus HTN (hypertension), benign Hyperlipidemia Brother Diabetes mellitus Social History Social History Household Members: None Housing: Other Housing Other:: Rents a room Do you presently have visiting nurse or other home services: No Alcohol intake: never Patient Tobacco Use Status: Never used Tobacco Substance Use Type: Heroin Advance Directives: Yes Advance Directives on File: Yes Advance Directives Date on File: 03/08/21 service: No Current occupational status: disabled Physical Exam Vital Signs: Vital Signs: Last Vital Signs Temp 100.1 F 04/22/22 11:29 Pulse 119 H 04/22/22 11:29 Resp 18 04/22/22 11:29 BP 150/105 H 04/22/22 11:29 Pulse Ox 89 L 04/22/22 11:29 O2 Del Method 04/22/22 11:29 BMI result Body Mass Index 31.3 vital signs have been reviewed as normal and appeared to be correct. Blood pressure 150/105. Heart rate 119. Respiration rate normal. Temperature normal. Oxygen saturation 89. Appearance: Alert although intermittently falls asleep in mid conversation/somnolence although easily arousable. Oriented X3. Appears diaphoretic. No acute distress. Head: Normal external exam. Normocephalic. Atraumatic. No [place] signs noted. No raccoon eyes noted Eyes: PERRLA. EOMI. Conjunctiva and sclera normal. Eyelids normal. ENT: EAC normal. TM's Normal. No septal hematoma noted. No hemotympanum noted. Pharynx normal. Uvula midline. Moist mucous membranes. No lesions/ulcerations or masses noted on the tongue. Normal voice. No trismus noted. No drooling noted. No muffled voice noted. Neck: Normal inspection. Neck supple. FROM. No adenopathy. Thyroid Normal. No tracheal deviation noted. No crepitus is noted. No meningeal signs. No neck mass noted. No signs of trauma noted. CVS: Normal heart rate and rhythm. Heart sound normal. Pulses normal throughout. No murmurs/rales/gallops. Respiratory: No respiratory distress. Painless inspiration. Breath sounds normal. No wheezes/rales/rhonchi noted. Chest nontender. No crepitus is noted. No signs of trauma noted. No accessory muscle usage noted or decreased air movement noted. No signs of trauma. Abdomen: Soft and nontender. Bowel sounds normal in all 4 quadrants. No distention noted. No organomegaly noted. No visible injury noted. Back: No CVA tenderness. Full range of motion noted. Nontender. No signs of trauma. Patient neuro intact bilaterally and distally on all 4 extremities. Patient's reflexes intact bilaterally and distally on all 4 extremities. No rashes/lesion/induration/fluctuance or signs of infection noted. Skin: Skin warm and dry. Normal skin color. Normal skin turgor. No rashes/lesions/lacerations noted. Extremities: No lower extremity edema. No calf tenderness is noted. Extremities exhibit normal range of motion and nontender. Neuro: Oriented X 3. No motor deficit. No sensory deficit. Reflexes normal. Normal steady gait. No focal neuro deficits noted. CN's II-XII intact bilaterally? Vascular: + radial pulses/+ 2 distal pedal pulses/+2 dorsalis pedis b/l. Normal cap refill. No cyanosis noted to upper extremity nails and lower extremity toes nails. Course Course Course Narrative: 11:30am - 57-year-old male who is Singaporean-speaking and poor historian c a PMHx of ulcerative colitis status post total colectomy with pouch anastomosis previous bouts of pouchitis, Crohn's disease, HTN, HLD, CKD and opioid use disorder who is currently on an ankle monitoring bracelet presenting to the ED via EMS after possible accidental overdose although patient reports he does not do any drugs or alcohol. Reports he feels completely fine. Reports that he would like to be discharged as he has the renal appointment at 02:30 today. Reports that he just sat down because he was tired and did not sleep well last night. Plan: labs, CXR, EKG, UA, Drug urine screen, covid swab and re-evaluate Reevaluation(s) Reevaluation #1: - we attempted to draw the patient's labs and he is refusing. He did come out positive for fentanyl and opioids. He reports that he has an appointment at 02:30 and he has to get out of here to go to his appointment on time and he does not want any blood work any chest x-ray or an EKG he reports that he knows where he is he knows the date and the president and he is alert oriented to self as well. Clinically sober able to ambulate to the bathroom without any difficulties. I will place the care team consult although patient reports that he does not want to wait for them he wants to leave does not want detox. Will place the order and will also give him a take-home Narcan. Therefore at this time patient will be discharged against medical advice. Time: 12:12 MDM - Overdose Medical Records Attestation: I reviewed the patient's medical records. Lab Data Attestation: I reviewed the patient's lab results. Labs: Lab Results 04/22/22 04/22/22 Range/Units 11:37 11:37 Urine Color YELLOW Urine Appearance CLEAR Urine pH 6.0 (5.0-8.0) Ur Specific [place] >= 1.030 H (1.005-1.025) Urine Protein 2+ H (NEG-TRACE) MG/DL Urine Glucose (UA) NEG (NEG) MG/DL Urine Ketones NEG (NEG) MG/DL Urine Blood NEG (NEG) Urine Nitrite NEG (NEG) Ur Leukocyte Esterase NEG (NEG) Urine RBC 0-2 (0) /HPF Urine WBC 0-2 (0-4) /HPF Ur Squamous Epith Cells TRACE /LPF Urine Bacteria 1+ /LPF Hyaline Casts 0-2 /LPF Granular Casts 0-2 /LPF Urine Opiates Screen POSITIVE H (Not Detect) Urine Fentanyl Screen POSITIVE H (Not Detect) Ur Barbiturates Screen Not Detected (Not Detect) Ur Phencyclidine Scrn Not Detected (Not Detect) Ur Amphetamines Screen Not Detected (Not Detect) U Benzodiazepines Scrn Not Detected (Not Detect) Urine Cocaine Screen Not Detected (Not Detect) U Marijuana (THC) Screen Not Detected (Not Detect) Critical Care Time Critical Care Time Critical Care Time: Yes Total Critical Care Time: 60 Attestation: I personally attest to this time spent taking care of the patient Discharge Plan Discharge Clinical Impression: Active substance abuse, Left against medical advice Patient Disposition: Left Against Medical Advice Prescriptions: No Action felodipine 5 mg tablet extended release 24 hr 1 tab PO DAILY pantoprazole 40 mg tablet,delayed release (DR/EC) 1 tab PO DAILY@0630 metoprolol tartrate 50 mg tablet 1 tab PO BID gabapentin 100 mg capsule 1 cap PO TID zolpidem 10 mg tablet 1 tab PO BEDTIME mesalamine 400 mg capsule (with del rel tablets) 2 cap PO TID rosuvastatin 40 mg tablet 1 tab PO BEDTIME ferrous gluconate 324 mg (38 mg iron) tablet 1 tab PO QAM lidocaine 5 % adhesive patch,medicated 1 patch topical DAILY tinidazole 500 mg tablet 500 mg PO BID 10 Days Qty: 20 0RF hydroxyzine pamoate [Vistaril] 25 mg capsule 25 mg PO TID PRN (Reason: itching) 1 Days Qty: 3 0RF buprenorphine-naloxone [Suboxone] 8-2 mg film 2 film sublingual DAILY 14 Days Qty: 28 0RF Rx Instructions: place 1 strip/tab under (each) side of tongue Interventions: ED Discharge Assessment Last Done: 04/22/22 12:24 Discharge Date/Time: 04/22/22 12:25
[2022-04-22 11:46] LABS: Appearance Urine CLEAR; Color Urine YELLOW; Glucose Urine UA NEG (NEG); Leukocyte Esterase Urine NEG (NEG); Nitrite Urine NEG (NEG); Specific Gravity - Urine >= 1.030 (1.005-1.025); UACC Culture Trigger NO; Urine Blood NEG (NEG); Urine Ketones NEG (NEG); Urine Protein 2+ MG/DL (NEG-TRACE)
[2022-04-22 11:59] LABS: Amphetamine Screen Urine Not Detected (Not Detect); Barbiturates, Urine Not Detected (Not Detect); Benzodiazepines Screen Urine Not Detected (Not Detect); Cannabinoid Screen Urine Not Detected (Not Detect); Cocaine Screen Urine Not Detected (Not Detect); Fentanyl, urine POSITIVE (Not Detect); Opiate Screen Urine POSITIVE (Not Detect); Phencyclidine Screen Urine Not Detected (Not Detect)
[2022-04-22 12:23] LABS: Bacteria Urine 1+ /LPF; Squamous Epithelial Cell Urine TRACE /LPF
[2022-04-22] MEDS: Naloxone HCl Nasal TAKE HOME 4 MG SPRAY NOSTRILALT (12:23)
[2022-04-22 12:24] LABS: RBC Urine 0-2 /HPF (0); WBC Urine 0-2 /HPF (0-4)
[2022-04-22 12:25] LABS: Granular Casts Urine 0-2 /LPF; Hyaline Casts Urine 0-2 /LPF
== END 2022-04-22 12:25 | disposition left against medical advice (07) ==
PROVIDERS: Physician Assistant Medical; Emergency Provider Emergency Medicine
DX: F11.10 Opioid abuse, uncomplicated (principal); I12.9 Hypertensive chronic kidney disease with stage 1 through stage 4 chronic kidney disease, or unspecified chronic kidney disease; N18.9 Chronic kidney disease, unspecified; K50.90 Crohn's disease, unspecified, without complications
CPT/HCPCS: 80307; 81001; 99283

== ENCOUNTER → 2022-04-26 11:32 | Outpatient (BNVA) | payer MEDICAID, SELFPAY | PROVIDERS: Visit Provider Internal Medicine | DX: F11.20 Opioid dependence, uncomplicated (principal) | CPT/HCPCS: 80305; 80307; 99212 ==

== ENCOUNTER 2022-04-26 16:10 | Outpatient (REF) | payer MEDICAID, SELFPAY ==
[2022-04-26 16:47] LABS: Fentanyl, urine POSITIVE (Not Detect)
== END 2022-04-26 16:11 | disposition home or self-care (01) ==
LOC: HO.LNP 16:10
PROVIDERS: Visit Provider Internal Medicine
DX: F11.20 Opioid dependence, uncomplicated (principal); Z79.899 Other long term (current) drug therapy
CPT/HCPCS: 80307

== ENCOUNTER → 2022-05-06 10:49 | Outpatient (BNVA) | payer MEDICAID, SELFPAY | PROVIDERS: Visit Provider Internal Medicine | DX: F11.20 Opioid dependence, uncomplicated (principal) | CPT/HCPCS: 80305; 99212 ==

== ENCOUNTER 2022-05-09 11:46 | Emergency (ER) | payer MEDICAID, SELFPAY ==
[2022-05-09 11:51] VITALS: BP 170/88; PULSE 106; O2SAT 96
[2022-05-09 11:59] VITALS: BP 128/96; PULSE 106; RESP 22; O2SAT 94; BMI 43.7
--- NOTE | 2022-05-09 12:21 | PC.NURSE ---
[place] counter and nodding off. per ems pt denied etoh/substance use. this teletypewriter operator currently at pt's bedside and note pt nodding off during triage. bilateral pupils pin point, pt diaphoretic, speech clear but rapid. he denies etoh/substance use. pt currently requesting to leave stated nothing is wrong with me, I want to go . he also states that he wants to leave on his own will. SHASHI Steele aware.
--- NOTE | 2022-05-09 12:22 | ED_ITS ---
HPI - General Adult General Chief complaint: General Medical Stated complaint: substance abuse Time Seen by Provider: 05/09/22 12:22 Source: patient and EMS Mode of arrival: EMS Limitations: no limitations History of Present Illness HPI narrative: Patient presents to the emergency department via EMS, [place] rubbing his forehead on the counter and nodding off. He denied any substance or alcohol usage to EMS. No Narcan was administered. Patient has been alert and verbal since transfer via EMS. Patient refusing to have any workup at this time, requesting to leave against medical advise Related Data Home Medications Medication Instructions Recorded Confirmed felodipine 5 mg tablet,extended 1 tab PO DAILY 03/03/21 08/20/21 release 24 hr gabapentin 100 mg capsule 1 cap PO TID 03/03/21 08/20/21 mesalamine 400 mg capsule (with 2 cap PO TID 03/03/21 08/20/21 delayed release tablets inside) metoprolol tartrate 50 mg tablet 1 tab PO BID 03/03/21 08/20/21 pantoprazole 40 mg tablet,delayed 1 tab PO DAILY@0630 03/03/21 08/20/21 release rosuvastatin 40 mg tablet 1 tab PO BEDTIME 03/03/21 08/20/21 zolpidem 10 mg tablet 1 tab PO BEDTIME 03/03/21 08/20/21 ferrous gluconate 324 mg (38 mg 1 tab PO QAM 06/30/21 08/20/21 iron) tablet lidocaine 5 % topical patch 1 patch topical DAILY 08/20/21 08/20/21 Previous Rx's Medication Instructions Recorded tinidazole 500 mg tablet 500 mg PO BID 10 days #20 tabs 08/09/21 hydroxyzine pamoate 25 mg capsule 25 mg PO TID PRN itching 1 day #3 10/19/21 (Vistaril) caps buprenorphine 8 mg-naloxone 2 mg 2 film sublingual DAILY 21 days 05/06/22 sublingual film (Suboxone) #42 ea Allergies Allergy/AdvReac Type Severity Reaction Status Date / Time Iodinated Contrast Media Allergy Intermediate HIVES Verified 05/06/22 10:53 [IV CONTRAST] prednisone [PREDNISONE] Allergy Mild RASH Verified 05/06/22 10:53 Review of Systems Review of Systems: Constitutional: No weight loss, fever, chills, weakness or fatigue. Skin: No rash or itching. Cardiovascular: No chest pain Respiratory: No shortness of breath Gastrointestinal: No nausea, vomiting or diarrhea. No abdominal pain Genitourinary: No burning micturition. No urinary frequency or incontinence. Musculoskeletal: No muscle pain, back pain, joint pain or stiffness. Psychiatric: No depression or anxiety. Yes all other systems are reviewed and are negative PMFSH Past Medical History Attestation statement: The following information was validated with the patient. Source: old records reviewed Medical History Colitis Constipation Crohn's disease of both small and large intestine HLD (hyperlipidemia) Ulcerative colitis Surgical History H/O cervical spine surgery H/O total colectomy History of colostomy reversal History of esophagogastroduodenoscopy (EGD) Hx of colonoscopy Family History Family History Mother Stroke Diabetes mellitus HTN (hypertension), benign Hyperlipidemia Brother Diabetes mellitus Social History Social History Household Members: None Housing: Other Housing Other:: Rents a room Do you presently have visiting nurse or other home services: No Alcohol intake: never Patient Tobacco Use Status: Never used Tobacco Substance Use Type: Heroin Advance Directives: Yes Advance Directives on File: Yes Advance Directives Date on File: 03/08/21 service: No Current occupational status: disabled Physical Exam ED Vital Signs: Vital Signs - 24 hr 05/09/22 11:59 Pulse Rate 106 H Respiratory Rate 22 H Blood Pressure 128/96 H Pulse Oximetry 94 Oxygen Delivery Method Room Air BMI result Body Mass Index 43.7 Vital signs have been reviewed and appeared to be correct. Mild hypertension, mild tachycardia..? Respiration rate normal. Temperature normal.? Oxygen saturation normal. Appearance: Alert.?Oriented to person, place and time. Disoriented to events preceding arrival to hospital. No acute distress.?Normal affect. Eyes: Pupils equal, round and reactive to light.? ENT: Pharynx normal.?? Neck: Normal inspection.? Neck supple.?? CVS: Heart sounds normal. Normal heart rate and rhythm.? Pulses normal.? Diaphoretic.? Respiratory: No respiratory distress.? Lung sounds clear to auscultation bilaterally?? Abdomen: Soft and non-tender. Normoactive bowel sounds. Skin: Skin warm and dry.? Normal skin color.? ? Extremities: No lower extremity edema.? Neuro: Moves all extremities spontaneously. Sensation intact bilaterally. CN II- XII intact. No focal neuro deficits. Ambulates with normal steady gait. Course Course Course Narrative: Patient is a 57-year-old male with a past medical history of CKD, colitis, Crohn's disease, hyperlipidemia, hypertension, opioid use disorder, ulcerative colitis. He presents to emergency department [place] lethargic. Upon my exam he is diaphoretic, however he is alert and oriented to person place and time. Disoriented to event stating that he was trying to go and see a friend, denies recollection of being at the bus station. He is refusing any serum labs, urinalysis, EKG. I discussed that without being related to obtain these, I cannot evaluate for any cause of his symptoms, advised that he may be suffering a potentially life-threatening condition. Patient verbalizes understanding of this, he states that he would like to leave on ?his own free will?. patient advised that he is leaving against medical advice at this time, he verbalizes understanding, discussed reasons that he should return back to the emergency department. He has been in the department for 45 minutes has remained alert and verbal, ambulatory with a steady gait. Medical Decision Making Medical Records Medical records reviewed: Yes I reviewed the patient's medical records. Discharge Plan Discharge Clinical Impression: Left against medical advice Patient Disposition: Left Against Medical Advice Instructions: Against Medical Advice (ED) Additional Instructions: You were brought to the emergency department via ambulance because you were found at the bus station rubbing your head on the counter and you were lethargic. As we discussed, the exact cause of your symptoms are unknown, you denied any use of drugs or alcohol today. It is possible that you may have a life-threatening condition, however you declined to have any blood work or EKG performed, therefore the exact cause of your symptoms today are unknown. You requested to leave against medical advice. Please return to the emergency department with any new or worsening symptoms or concerns. Prescriptions: No Action felodipine 5 mg tablet extended release 24 hr 1 tab PO DAILY pantoprazole 40 mg tablet,delayed release (DR/EC) 1 tab PO DAILY@0630 metoprolol tartrate 50 mg tablet 1 tab PO BID gabapentin 100 mg capsule 1 cap PO TID zolpidem 10 mg tablet 1 tab PO BEDTIME mesalamine 400 mg capsule (with del rel tablets) 2 cap PO TID rosuvastatin 40 mg tablet 1 tab PO BEDTIME ferrous gluconate 324 mg (38 mg iron) tablet 1 tab PO QAM lidocaine 5 % adhesive patch,medicated 1 patch topical DAILY tinidazole 500 mg tablet 500 mg PO BID 10 Days Qty: 20 0RF hydroxyzine pamoate [Vistaril] 25 mg capsule 25 mg PO TID PRN (Reason: itching) 1 Days Qty: 3 0RF buprenorphine-naloxone [Suboxone] 8-2 mg film 2 film sublingual DAILY 21 Days Qty: 42 0RF Rx Instructions: place 1 strip/tab under (each) side of tongue Interventions: ED Discharge Assessment Last Done: 05/09/22 12:32 Discharge Date/Time: 05/09/22 12:35
== END 2022-05-09 12:35 | disposition left against medical advice (07) ==
PROVIDERS: Emergency Provider Emergency Medicine Emergency Medical Services
DX: R41.82 Altered mental status, unspecified (principal); Z79.899 Other long term (current) drug therapy
CPT/HCPCS: 99282

== ENCOUNTER 2022-05-09 14:41 | Emergency (ER) | payer MEDICAID, SELFPAY ==
[2022-05-09 14:47] VITALS: BP 90/50; PULSE 111; O2SAT 91
--- NOTE | 2022-05-09 15:16 | ECG_ITS ---
Test Reason : general medical Blood Pressure : / mmHG Vent. Rate : 100 BPM Atrial Rate : 100 BPM P-R Int : 178 ms QRS Dur : 084 ms QT Int : 350 ms P-R-T Axes : 028 -31 019 degrees QTc Int : 451 ms Normal sinus rhythm Left axis deviation Abnormal ECG When compared with ECG of 30-JUN-2021 08:59, Vent. rate has increased BY 36 BPM Referred By: Ivette Villarreal Electronically Signed By:ABDI PAULA
[2022-05-09 15:28] VITALS: BP 126/60; PULSE 100; RESP 16; TEMP 36.3; O2SAT 94; BMI 36.9
--- NOTE | 2022-05-09 15:37 | ED_ITS ---
HPI - Psych General Chief Complaint: ETOH/Substance Use Stated Complaint: drug use Time Seen by Provider: 05/09/22 14:51 Source: patient and EMS Mode of arrival: EMS Limitations: altered mental status History of Present Illness HPI Narrative: Patient was brought to the emergency department by EMS, was reportedly ?acting strange? in the community. Reports a history of substance abuse. Patient currently denies any drug or alcohol usage. He was here in the emergency department earlier today for the same. At that time he left against medical advice refusing any interventions. 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 It proved to have EKG obtain, but is refusing any blood work. Related Data Home Medications Medication Instructions Recorded Confirmed felodipine 5 mg tablet,extended 1 tab PO DAILY 03/03/21 08/20/21 release 24 hr gabapentin 100 mg capsule 1 cap PO TID 03/03/21 08/20/21 mesalamine 400 mg capsule (with 2 cap PO TID 03/03/21 08/20/21 delayed release tablets inside) metoprolol tartrate 50 mg tablet 1 tab PO BID 03/03/21 08/20/21 pantoprazole 40 mg tablet,delayed 1 tab PO DAILY@0630 03/03/21 08/20/21 release rosuvastatin 40 mg tablet 1 tab PO BEDTIME 03/03/21 08/20/21 zolpidem 10 mg tablet 1 tab PO BEDTIME 03/03/21 08/20/21 ferrous gluconate 324 mg (38 mg 1 tab PO QAM 06/30/21 08/20/21 iron) tablet lidocaine 5 % topical patch 1 patch topical DAILY 08/20/21 08/20/21 Previous Rx's Medication Instructions Recorded tinidazole 500 mg tablet 500 mg PO BID 10 days #20 tabs 08/09/21 hydroxyzine pamoate 25 mg capsule 25 mg PO TID PRN itching 1 day #3 10/19/21 (Vistaril) caps buprenorphine 8 mg-naloxone 2 mg 2 film sublingual DAILY 21 days 05/06/22 sublingual film (Suboxone) #42 ea Allergies Allergy/AdvReac Type Severity Reaction Status Date / Time Iodinated Contrast Media Allergy Intermediate HIVES Verified 05/06/22 10:53 [IV CONTRAST] prednisone [PREDNISONE] Allergy Mild RASH Verified 05/06/22 10:53 Review of Systems Review of Systems: Constitutional:?No weight loss, fever, chills, weakness or fatigue. Skin: No rash or itching. Cardiovascular: No chest pain Respiratory:?No shortness of breath Gastrointestinal: No nausea, vomiting or diarrhea. No abdominal pain Genitourinary: No burning micturition. No urinary frequency or incontinence. Musculoskeletal: No muscle pain, back pain, joint pain or stiffness. Psychiatric: No depression or anxiety.? Yes all other systems are reviewed and are negative [facility] Past Medical History Medical History Colitis Constipation Crohn's disease of both small and large intestine HLD (hyperlipidemia) Ulcerative colitis Surgical History H/O cervical spine surgery H/O total colectomy History of colostomy reversal History of esophagogastroduodenoscopy (EGD) Hx of colonoscopy Family History Family History Mother Stroke Diabetes mellitus HTN (hypertension), benign Hyperlipidemia Brother Diabetes mellitus Social History Social History Household Members: None Housing: Other Housing Other:: Rents a room Do you presently have visiting nurse or other home services: No Alcohol intake: never Patient Tobacco Use Status: Never used Tobacco Substance Use Type: Heroin Advance Directives: Yes Advance Directives on File: Yes Advance Directives Date on File: 03/08/21 service: No Current occupational status: disabled Physical Exam Vital Signs: Vital Signs: Last Vital Signs Temp 97.3 F 05/09/22 15:28 Pulse 100 05/09/22 15:28 Resp 16 05/09/22 15:28 BP 126/60 05/09/22 15:28 Pulse Ox 94 05/09/22 15:28 O2 Del Method 05/09/22 15:28 BMI result Body Mass Index 36.9 Appearance:?Alert.?Oriented? to person, place and time. No acute distress.?Normal affect. Eyes:?Pupils equal, round and reactive to light, 2mm bilaterally? ENT: Pharynx normal.?? Neck:?Normal inspection.? Neck supple.?? CVS:? Heart sounds normal. Normal heart rate and rhythm.? Pulses normal.? Diaphoretic.? Respiratory:?No respiratory distress.? Lung sounds clear to auscultation bilaterally?? Abdomen:?Soft and non-tender. Normoactive bowel sounds. Skin:?Skin warm and dry.? Normal skin color.? ? Extremities:?No lower extremity edema.? Neuro:?Moves all extremities spontaneously. Sensation intact bilaterally. No focal neuro deficits. Ambulates with normal steady gait. Course Course Course Narrative: Patient is a 57-year-old male with a past medical history of CKD, colitis, Crohn's disease, hyperlipidemia, hypertension, opioid use disorder, ulcerative colitis.? He presents to emergency department after being found at the bus stati on lethargic. Patient was brought to the emergency department earlier this morning with similar concerns, left against medical advice without any interventions.? Upon my exam he is diaphoretic yet again, he agreed to have an EKG obtained which reveals normal sinus rhythm, no acute ischemic findings. He is alert and oriented to person place and time, ambulatory with a steady gait, tolerating oral fluids without complication, agitated requesting to leave against medical advise. He is refusing any serum labs, urinalysis.? I discussed that without being able to obtain these, I cannot evaluate for any cause of his symptoms, advised that he may be suffering a potentially life-threatening condition.? Patient verbalizes understanding of this, he states that he would like to leave.? patient advised that he is leaving against medical advice at this time, he verbalizes understanding, discussed reasons that he should return back to the emergency department.? I reviewed this case with Dr. Aguirre, who agrees with recommendations, however, disposition is patient leaving AMA. [facility] - Psych Medical Records Attestation: I reviewed the patient's medical records. ECG Data Attestation: I personally reviewed and interpreted this ECG as follows: ECG interpretation date: 05/09/22 Interpretation: Rate: 100 Rhythm:? Normal sinus rhythm [place]:? Left axis deviation Normal P waves.? Normal [facility] [place] JESUS.?? Normal QRS complex.?? ST T wave :??No ST elevation, no ST depression or qTC: 451 The study has been interpreted contemporaneously by me. Discharge Plan Discharge Clinical Impression: Left against medical advice, Bizarre behavior Patient Disposition: Left Against Medical Advice Instructions: Against Medical Advice (ED) Additional Instructions: You were brought to the emergency department via ambulance because you were found acting bizarrely in public. As we discussed, the exact cause of your symptoms are unknown, you denied any use of drugs or alcohol today.? It was recommended that you remain in the hospital for further evaluation, as it is possible that you may have a life-threatening condition, however you declined to have any blood work performed, therefore the exact cause of your symptoms today are unknown.? You requested to leave against medical advice.? Please return to the emergency department with any new or worsening symptoms or concerns. Prescriptions: No Action felodipine 5 mg tablet extended release 24 hr 1 tab PO DAILY pantoprazole 40 mg tablet,delayed release (DR/EC) 1 tab PO DAILY@0630 metoprolol tartrate 50 mg tablet 1 tab PO BID gabapentin 100 mg capsule 1 cap PO TID zolpidem 10 mg tablet 1 tab PO BEDTIME mesalamine 400 mg capsule (with del rel tablets) 2 cap PO TID rosuvastatin 40 mg tablet 1 tab PO BEDTIME ferrous gluconate 324 mg (38 mg iron) tablet 1 tab PO QAM lidocaine 5 % adhesive patch,medicated 1 patch topical DAILY tinidazole 500 mg tablet 500 mg PO BID 10 Days Qty: 20 0RF hydroxyzine pamoate [Vistaril] 25 mg capsule 25 mg PO TID PRN (Reason: itching) 1 Days Qty: 3 0RF buprenorphine-naloxone [Suboxone] 8-2 mg film 2 film sublingual DAILY 21 Days Qty: 42 0RF Rx Instructions: place 1 strip/tab under (each) side of tongue Interventions: ED Discharge Assessment Last Done: 05/09/22 15:49 Discharge Date/Time: 05/09/22 15:52
--- NOTE | 2022-05-09 15:45 | PC.NURSE ---
PT refused bloodwork. RN aware.
--- NOTE | 2022-05-09 15:47 | PC.NURSE ---
PT EVALUATED BY PROVIDER. PT AWAKE, ALERT. ORIENTED. AMBULATORY IN ER, GAIT STEADY. ANSWERING QUESTIONS APPROPRIATELY. TOLERATING PO FLUIDS. EKG COMPLETED. PT REFUSING TO STAY. DENIES SI/HI PROVIDER AT BEDSIDE AND PLAN FOR DC HOME
== END 2022-05-09 15:52 | disposition left against medical advice (07) ==
PROVIDERS: Emergency Provider Emergency Medicine
DX: R53.83 Other fatigue (principal); F11.10 Opioid abuse, uncomplicated; R94.31 Abnormal electrocardiogram [ECG] [EKG]; Z79.899 Other long term (current) drug therapy
CPT/HCPCS: 93005; 99283

== ENCOUNTER → 2022-05-31 11:39 | Outpatient (BNVA) | payer MEDICAID, SELFPAY | PROVIDERS: Visit Provider Internal Medicine | DX: F11.20 Opioid dependence, uncomplicated (principal) | CPT/HCPCS: 80305; 99212 ==

== ENCOUNTER 2022-06-21 14:28 | Outpatient (REF) | payer MEDICAID, SELFPAY ==
[2022-06-21 14:48] LABS: Fentanyl, urine POSITIVE (Not Detect)
== END 2022-06-21 14:29 | disposition home or self-care (01) ==
LOC: HO.LNP 14:28
PROVIDERS: Visit Provider Internal Medicine
DX: F11.20 Opioid dependence, uncomplicated (principal); Z79.899 Other long term (current) drug therapy
CPT/HCPCS: 80307; 99212

== ENCOUNTER 2023-02-17 10:41 | Inpatient (IN) | payer MEDICAID, SELFPAY ==
--- NOTE | ~2023-02-17 | CT_ITS ---
EXAMINATION: CT ABDOMEN AND PELVIS WITHOUT CONTRAST CLINICAL INFORMATION: History of IBD, diffuse abdominal pain. COMPARISON: CT abdomen and pelvis without contrast 08/19/2021 TECHNIQUE: Multidetector volumetric imaging was performed from the superior aspect of the liver through the pubic symphysis. Sagittal and coronal reformatted images were obtained on the technologist's workstation. This CT examination was performed using dose optimization techniques as appropriate, variously including the following: *Automated exposure control *Adjustment of mA and/or kV according to patient size (this includes techniques or standardized protocols for targeted exams where dose is matched to indication/reason for exam; i.e. extremities or head) *Use of iterative reconstruction technique DLP: 696 mGy-cm FINDINGS: LUNG BASES: The visualized lung bases are unremarkable. LIVER, GALLBLADDER, AND BILIARY TREE: The liver is normal in size, shape, and attenuation. No focal hepatic lesion or biliary ductal dilatation is present. The gallbladder is unremarkable with no evidence of radiopaque gallstones, gallbladder wall thickening, or obvious pericholecystic inflammatory changes. PANCREAS: The spleen is unremarkable except for a punctate calcification. SPLEEN: Unremarkable. ADRENAL GLANDS: Unremarkable. KIDNEYS AND URETERS: The kidneys are normal in size, shape, and attenuation. No hydronephrosis, hydroureter, or calculi seen. No perinephric stranding. BLADDER: The bladder is undistended. GASTROINTESTINAL TRACT: There is total colectomy with annular sutures at the proximal ileal rectal anastomosis. The lumen is widely patent. No dilated small bowel loops seen at this time. There is a surgical anastomosis in the right lower abdomen with patent lumen. The stomach is nondistended and appears unremarkable. No free air or free fluid seen. ABDOMINAL WALL: There is anterior abdominal wall hernia repair with mesh in place. LYMPH NODES: Benign lymph nodes are seen in the retroperitoneum. VASCULAR: The abdominal aorta is of normal caliber.. PELVIC VISCERA: No free air or free fluid seen. OSSEOUS STRUCTURES: No aggressive lytic or sclerotic process seen. There are degenerative disc changes with spondylosis and endplate sclerosis L5-S1 disc level. CT/CT abdomen pelvis wo IV con IMPRESSION: Total colectomy with anastomotic sites widely patent. No small bowel distention seen. No free air or free fluid seen. There are degenerative disc changes with spondylosis and endplate sclerosis L5-S1 disc level. Fleischner guidelines were followed.
[2023-02-17 10:51] VITALS: BP 111/75; BP 136/86; PULSE 109; PULSE 119; RESP 13; TEMP 36.8; O2SAT 100; O2SAT 95; BMI 33.7
[2023-02-17 11:42] LABS: MANUAL DIFF FLAG NO
[2023-02-17 11:44] LABS: Basophils Percent Auto 0.2 % (0-2); Eosinophils Percent Auto 0.3 % (0-4); Hematocrit 45.4 % (42.0-52.0); Hemoglobin 14.6 g/dl (14.0-18.0); Imm Gran Abs Auto 0.03 X10*3/uL (0.00-0.03); Imm Gran Pct Auto 0.5 % (0.0-0.4); Lymphocytes Absolute Auto 1.2 X10*3/uL (1.2-4.9); Lymphocytes Percent Auto 17.4 % (20-40); Mean Corpuscular HGB Conc 32.2 g/dl (31.0-36.0); Mean Corpuscular Hemoglobin 28.6 pg (27.0-33.0); Mean Corpuscular Volume 88.8 fL (80.0-98.0); Mean Platelet Volume 10.3 fL (9.4-12.4); Monocytes Absolute Auto 0.7 X10*3/uL (0.1-1.2); Monocytes Percent Auto 10.5 % (2-11); Neutrophils Absolute Auto 4.7 x10*3/uL (2.0-8.3); Neutrophils Percent Auto 71.1 % (45-73); Platelet Count 178 X10*3/uL (160-400); Red Blood Count 5.11 X10*6/uL (4.60-5.80); Red Cell Distribution Width 17.9 % (11.0-16.0); White Blood Count 6.7 X10*3/uL (4.8-10.8)
--- NOTE | 2023-02-17 12:08 | ED_ITS ---
HPI - Abdominal Pain General Chief Complaint: Abdominal Pain Stated Complaint: Abd pain, chest pain, N/V per EMS Time Seen by Provider: 02/17/23 11:22 Source: patient Mode of arrival: ambulatory Limitations: no limitations History of Present Illness MD elicited complaint: abdominal pain Onset (ago): day(s) (3) Pain Consistency: constant Location: other (Generalized) Severity: moderate Quality: dull and other (pressure) Radiation: none Migration to: no migration Exacerbating factors: nothing Relieving factors: eating (soup) Associated symptoms: nausea, vomiting and diarrhea Related Data Home Medications Medication Instructions Recorded Confirmed felodipine 5 mg tablet,extended 1 tab PO BEDTIME 03/03/21 02/17/23 release 24 hr mesalamine 400 mg capsule (with 2 cap PO TID 03/03/21 07/07/22 delayed release tablets inside) metoprolol tartrate 50 mg tablet 1 tab PO BID 03/03/21 02/17/23 pantoprazole 40 mg tablet,delayed 1 tab PO DAILY@0630 03/03/21 07/07/22 release rosuvastatin 40 mg tablet 1 tab PO BEDTIME 03/03/21 02/17/23 zolpidem 10 mg tablet 1 tab PO BEDTIME 03/03/21 02/17/23 ferrous gluconate 324 mg (38 mg 1 tab PO QAM 06/30/21 02/17/23 iron) tablet lidocaine 5 % topical patch 1 patch topical DAILY 08/20/21 02/17/23 cyanocobalamin (vitamin B-12) 1 tab PO QAM 07/07/22 02/17/23 1,000 mcg tablet gabapentin 300 mg capsule 300 mg PO TID 02/17/23 Previous Rx's Medication Instructions Recorded hydroxyzine pamoate 25 mg capsule 25 mg PO TID PRN itching 1 day #3 10/19/21 (Vistaril) caps Allergies Allergy/AdvReac Type Severity Reaction Status Date / Time Iodinated Contrast Media Allergy Intermediate HIVES Verified 07/07/22 14:36 [IV CONTRAST] prednisone [PREDNISONE] Allergy Mild RASH Verified 07/07/22 14:36 PMFSH Past Medical History Medical History CKD (chronic kidney disease) Colitis Constipation Crohn's disease of both small and large intestine HLD (hyperlipidemia) HTN (hypertension) On beta shannon at home Opioid use disorder Ulcerative colitis Surgical History H/O cervical spine surgery H/O total colectomy History of colostomy reversal History of esophagogastroduodenoscopy (EGD) Hx of colonoscopy Family History Family History Mother Stroke Diabetes mellitus HTN (hypertension), benign Hyperlipidemia Brother Diabetes mellitus Social History Social History Household Members: None Housing: Other Housing Other:: Rents a room Do you presently have visiting nurse or other home services: No Alcohol intake: never Patient Tobacco Use Status: Never used Tobacco Substance Use Type: Heroin Advance Directives: Yes Advance Directives on File: Yes Advance Directives Date on File: 03/08/21 service: No Current occupational status: disabled Physical Exam ED Vital Signs: Vital Signs - 24 hr 02/17/23 10:51 Temperature 98.2 F Pulse Rate 109 H Respiratory Rate 13 Blood Pressure 111/75 Pulse Oximetry 95 Oxygen Delivery Method Room Air BMI result Body Mass Index 33.7 GEN: Well developed, no acute distress, alert, oriented HEENT: Normocephalic, atraumatic, normal external ears, nose appears normal, no oropharyngeal edema or exudates Eyes: Normal to appearance Neck: Supple, no lymphadenopathy Respiratory: Talks in complete sentences, no respiratory distress, clear to auscultation bilaterally Cardiovascular: Regular rate and rhythm, no murmurs rubs or gallops Abdomen: Diffusely tender and distended, no rebound or guarding, no palpable masses Back: No CVA tenderness Extremities: No clubbing cyanosis or edema Neurologic: No focal neurologic deficits, cranial nerves 2-12 intact, strength is 5/5 bilaterally, gait normal Skin: No rash Course Course Course Narrative: 57-year-old male presents with abdominal pain, distension, nausea, vomiting and diarrhea. Symptoms have been going on for 3-4 days. He describes symptoms as moderate in nature. Exam revealed distention without rebound or guarding but generalized tenderness. He does have a history of Crohn's disease. He has had non bloody emesis or diarrhea. He has a history of colostomy which was taking down. Will start with an x-ray of the abdomen, routine laboratory analysis, analgesia, antiemetics and IV fluids. Will re-evaluate patient. Would have a low threshold to perform a CT scan. Reevaluation(s) Reevaluation #1: patient to be admitted for acuyte kidney failure. Time: 13:42 Medical Decision Making Medical Decision Making [facility] Narrative: 57-year-old male presents with abdominal pain, distension, nausea, vomiting and diarrhea. Symptoms have been going on for 3-4 days. He describes symptoms as moderate in nature. Exam revealed distention without rebound or guarding but generalized tenderness. He does have a history of Crohn's disease. He has had non bloody emesis or diarrhea. He has a history of colostomy which was taking down. Will start with an x-ray of the abdomen, routine laboratory analysis, analgesia, antiemetics and IV fluids. Will re-evaluate patient. Would have a low threshold to perform a CT scan. Differential Diagnosis Differential Diagnoses: The differential diagnosis associated with the presentation includes (Gastroenteritis, small-bowel obstruction, ulcerative colitis/Crohn's flare up, IBD, IBS, bacterial overgrowth, dysmotility) Admission/Observation Consideration of admission/observation: Escalation of care including admission/observation considered Lab Data [facility] Lab Attestation statement: I reviewed the patient's lab results. 02/17/23 11:33 02/17/23 11:33 Labs: Lab Results 02/17/23 02/17/23 02/17/23 Range/Units 11:33 12:20 12:33 WBC 6.7 (4.8-10.8) X10*3/uL RBC 5.11 (4.60-5.80) X10*6/uL Hgb 14.6 (14.0-18.0) g/dl Hct 45.4 (42.0-52.0) % MCV 88.8 (80.0-98.0) fL MCH 28.6 (27.0-33.0) pg MCHC 32.2 (31.0-36.0) g/dl RDW 17.9 H (11.0-16.0) % Plt Count 178 (160-400) X10*3/uL MPV 10.3 (9.4-12.4) fL Immature Gran % (Auto) 0.5 H (0.0-0.4) % Neut % (Auto) 71.1 (45-73) % Lymph % (Auto) 17.4 L (20-40) % [place] % (Auto) 10.5 (2-11) % Eos % (Auto) 0.3 (0-4) % Baso % (Auto) 0.2 (0-2) % Lymph # (Auto) 1.2 (1.2-4.9) X10*3/uL [place] # (Auto) 0.7 (0.1-1.2) X10*3/uL Eos # (Auto) 0.0 (0.0-0.4) X10*3/uL Baso # (Auto) 0.0 (0.0-0.2) X10*3/uL Abs Immat Gran (auto) 0.03 (0.00-0.03) X10*3/uL Absolute Neuts (auto) 4.7 (2.0-8.3) x10*3/uL Absolute Nucleated RBC 0.000 (0.0-0.012) X10*3/uL Nucleated RBC % (auto) 0.0 (0.0-0.2) /100WBC Sodium 133 L (135-145) mmol/L Potassium 4.0 (3.3-5.1) mmol/L Chloride 104 (96-108) mmol/L Carbon Dioxide 16 L (22-29) mmol/L Anion Gap 17 (12-20) BUN 79 H (9-16) mg/dL Creatinine 10.12 H* (0.5-1.4) mg/dL Estim Creat Clear Calc 9.5 Estimated GFR 5 Random Glucose 113 (60-115) mg/dL Calcium 8.1 L D (8.4-10.2) mg/dL Total Bilirubin 0.7 (0.0-1.0) mg/dL Direct Bilirubin 0.3 (0.0-0.5) mg/dL AST 43 H (5-37) U/L ALT 30 (0-40) U/L Alkaline Phosphatase 92 (39-117) U/L Total Protein 7.9 (6.5-8.0) g/dL Albumin 4.0 (3.5-5.0) g/dL Lipase 286 H (8-78) U/L Urine Color Dark Yellow Urine Appearance Cloudy Urine pH 5.0 (5.0-9.0) Ur Specific [place] 1.020 (1.005-1.025) Urine Protein 100 (2+) H (Neg-Trace) mg/dL Urine Glucose (UA) Negative (Negative) mg/dL Urine Ketones Trace (Negative) mg/dL Urine Blood Small (1+) H (Negative) Urine Nitrite Negative (Negative) Ur Leukocyte Esterase Negative (Negative) Urine RBC 0-2 (0-2) /HPF Urine WBC 0-5 (0-5) /HPF Ur Squamous Epith Cells 6-10 (0-2) /HPF Other Crystals Present Urine Bacteria None Seen (None Seen) Hyaline Casts 11-20 (0-2) /LPF COVID-19 (NANCY) (Negative) COVID-19 Clin Com 02/17/23 Range/Units 13:07 WBC (4.8-10.8) X10*3/uL RBC (4.60-5.80) X10*6/uL Hgb (14.0-18.0) g/dl Hct (42.0-52.0) % MCV (80.0-98.0) fL MCH (27.0-33.0) pg MCHC (31.0-36.0) g/dl RDW (11.0-16.0) % Plt Count (160-400) X10*3/uL MPV (9.4-12.4) fL Immature Gran % (Auto) (0.0-0.4) % Neut % (Auto) (45-73) % Lymph % (Auto) (20-40) % [place] % (Auto) (2-11) % Eos % (Auto) (0-4) % Baso % (Auto) (0-2) % Lymph # (Auto) (1.2-4.9) X10*3/uL [place] # (Auto) (0.1-1.2) X10*3/uL Eos # (Auto) (0.0-0.4) X10*3/uL Baso # (Auto) (0.0-0.2) X10*3/uL Abs Immat Gran (auto) (0.00-0.03) X10*3/uL Absolute Neuts (auto) (2.0-8.3) x10*3/uL Absolute Nucleated RBC (0.0-0.012) X10*3/uL Nucleated RBC % (auto) (0.0-0.2) /100WBC Sodium (135-145) mmol/L Potassium (3.3-5.1) mmol/L Chloride (96-108) mmol/L Carbon Dioxide (22-29) mmol/L Anion Gap (12-20) BUN (9-16) mg/dL Creatinine (0.5-1.4) mg/dL Estim Creat Clear Calc Estimated GFR Random Glucose (60-115) mg/dL Calcium (8.4-10.2) mg/dL Total Bilirubin (0.0-1.0) mg/dL Direct Bilirubin (0.0-0.5) mg/dL AST (5-37) U/L ALT (0-40) U/L Alkaline Phosphatase (39-117) U/L Total Protein (6.5-8.0) g/dL Albumin (3.5-5.0) g/dL Lipase (8-78) U/L Urine Color Urine Appearance Urine pH (5.0-9.0) Ur Specific [place] (1.005-1.025) Urine Protein (Neg-Trace) mg/dL Urine Glucose (UA) (Negative) mg/dL Urine Ketones (Negative) mg/dL Urine Blood (Negative) Urine Nitrite (Negative) Ur Leukocyte Esterase (Negative) Urine RBC (0-2) /HPF Urine WBC (0-5) /HPF Ur Squamous Epith Cells (0-2) /HPF Other Crystals Urine Bacteria (None Seen) Hyaline Casts (0-2) /LPF COVID-19 (NANCY) Negative (Negative) COVID-19 Clin Com See Note Independent Interpretation I performed an independent interpretation of an: Plain X-Ray and CT Scan (NAD) Radiology Impression Discussion of test interpretation with radiology: I have reviewed the radiologist's reading. ( CT/CT abdomen pelvis wo IV con IMPRESSION: Total colectomy with anastomotic sites widely patent. No small bowel distention seen. No free air or free fluid seen. There are degenerative disc changes with spondylosis and endplate sclerosis L5-S1 disc level. Fleischner guidelines we) Tests considered The following testing was considered but not selected: CT scan Prescription Management I considered prescription management with: Pain Medication Chronic Conditions Patient?s care impacted by: Other (IBD) Medications Administered Discontinued Medications Generic Name Dose Route Start Last Admin Trade Name Rudiq PRN Reason Stop Dose Admin Famotidine 20 mg 02/17/23 12:07 02/17/23 12:35 Famotidine/Pf 20 Mg/2 Ml Vial IVPUSH 02/17/23 12:08 20 mg ONCE ONE Administration Sodium Chloride 1,000 mls @ 999 mls/hr 02/17/23 12:15 02/17/23 12:35 Ns IV 02/17/23 13:15 999 mls/hr .Q1H1M MELVI Administration Ketorolac Tromethamine 15 mg 02/17/23 12:07 02/17/23 12:34 Ketorolac Tromethamine 15 Mg/Ml Vial IVPUSH 02/17/23 12:08 15 mg ONCE ONE Administration Ondansetron HCl 4 mg 02/17/23 12:07 02/17/23 12:35 Ondansetron Hcl 4 Mg/2 Ml Vial IVPUSH 02/17/23 12:08 4 mg ONCE ONE Administration Discharge Plan Discharge Clinical Impression: Abdominal pain, Acute kidney failure Patient Disposition: Admitted As Inpatient Prescriptions: No Action felodipine 5 mg tablet extended release 24 hr 1 tab PO BEDTIME pantoprazole 40 mg tablet,delayed release (DR/EC) 1 tab PO DAILY@0630 metoprolol tartrate 50 mg tablet 1 tab PO BID zolpidem 10 mg tablet 1 tab PO BEDTIME mesalamine 400 mg capsule (with del rel tablets) 2 cap PO TID rosuvastatin 40 mg tablet 1 tab PO BEDTIME ferrous gluconate 324 mg (38 mg iron) tablet 1 tab PO QAM cyanocobalamin (vitamin B-12) 1,000 mcg tablet 1 tab PO QAM lidocaine 5 % adhesive patch,medicated 1 patch topical DAILY gabapentin 300 mg capsule 300 mg PO TID hydroxyzine pamoate [Vistaril] 25 mg capsule 25 mg PO TID PRN (Reason: itching) 1 Days Qty: 3 0RF
[2023-02-17] MEDS: Ketorolac Tromethamine 15 MG/ML VIAL IVPUSH (12:34)
[2023-02-17] MEDS: 0.9 % Sodium Chloride 1,000 ML 999 ML IV (12:35)
[2023-02-17] MEDS: ondansetron HCL 4 MG/2 ML VIAL IVPUSH (12:35)
[2023-02-17] MEDS: Famotidine/PF 20 MG/2 ML VIAL IVPUSH (12:35)
[2023-02-17 12:40] LABS: Appearance Urine Cloudy; Color Urine Dark Yellow; Glucose Urine UA Negative (Negative); Leukocyte Esterase Urine Negative (Negative); Nitrite Urine Negative (Negative); UMIC TRIGGER UACC YES; Urine Blood Small (1+) (Negative); Urine Ketones Trace mg/dL (Negative); Urine Protein 100 (2+) mg/dL (Neg-Trace)
[2023-02-17 12:46] LABS: Alanine Aminotransferase 30 U/L (0-40); Alkaline Phosphatase 92 U/L (39-117); Anion Gap 17 (12-20); Aspartate Amino Transferase 43 U/L (5-37); Bilirubin Direct 0.3 mg/dL (0.0-0.5); Bilirubin Total 0.7 mg/dL (0.0-1.0); Blood Urea Nitrogen 79 mg/dL (9-16); Calcium 8.1 mg/dL (8.4-10.2); Carbon Dioxide 16 mmol/L (22-29); Chloride 104 mmol/L (96-108); Creatinine Clr Calc Pharmacy 9.5; Estimated Glomerular Filt Rate 5; Glucose Random 113 mg/dL (60-115); Lipase 286 U/L (8-78); Sodium 133 mmol/L (135-145); Total Protein 7.9 g/dL (6.5-8.0)
[2023-02-17 12:52] LABS: Bacteria Urine None Seen (None Seen); Other Crystals Urine Present; RBC Urine 0-2 /HPF (0-2); WBC Urine 0-5 /HPF (0-5)
[2023-02-17 13:32] LABS: COVID-19 Test Negative (Negative); IDNOW Serial# 6674DD1D
--- NOTE | 2023-02-17 13:58 | PHA.MEDREC ---
Pharmacy Consult ? Medication Reconciliation Pharmacy has completed the medication reconciliation. Patient does not know medication because he uses [facility] at [facility] pharmacy. Contacted pharmacy to confirm medications in [facility]. Isamar Manuel, ShruthiD
--- NOTE | 2023-02-17 14:19 | PM.IMHP ---
History of Present Illness Date of Service: 02/17/23 Attending physician on admission: Mela Bates Chief Complaint: Vomiting and diarrhea Pt is a 57-year-old male with a PMH significant for?ulcerative colitis s/p total colectomy with ileal pouch to anal anastomosis in 2007, CKD, depression, HTN, HLD, and history of opioid use disorder who presents to the ED with?three days of intractable nausea, vomiting, and diarrhea. Patient has an extensive abdominal surgical history and multiple admissions for abdominal pain in the past, though nothing for the past year. Pt states that symptoms began 3 days ago with sudden-onset on intractable nausea, vomiting, and diarrhea. No fever, some chills, but no initial abdominal pain. Vomit was clear liquid without signs of blood. Diarrhea was green-colored without evidence of blood, was experiencing 7-10 episodes daily. Pt eventually developed diffuse abdominal pain after vomiting multiple times. Pt also complains of generalized weakness. He notes he could not eat or drink anything without it immediately going through him. Pt says he is now feeling much better, and is seen eating a sandwich and drinking juice, which he is now tolerating. No current N/V/D. Complains of lower back pain. No chest pain/pressure, palpitations. No shortness of breath In the ED patient was afebrile but tachycardic at 109. Labs were significant for sodium of 133, coronary acid of 16, BUN elevated 79, creatinine elevated 10.12 (up from 1.32 on 08/22/21), lipase elevated at 286. UA negative for UTI but showed elevated hyaline casts at 11-20. CT?of the abdomen and pelvis showed no acute abdominal processes, no free air or free fluid. Did note some degenerative disc changes with spondylolysis and and endplate sclerosis L5 through S1. Pt was treated with ketorolac, IVF, ondansetron, famotidine. Pt will be admitted to the hospital for severe acute kidney failure. Review of Systems Review of Systems: Nausea, vomiting x3 days Intractable diarrhea x3 days Abdominal pain Lower back pain Generalized weakness Denies hematemesis, hematochezia Chills, but no fever Denies chest pain/pressure, palpitations No shortness of breath Yes all other systems are reviewed and are negative PMFSH Medical History CKD (chronic kidney disease) Colitis Constipation Crohn's disease of both small and large intestine HLD (hyperlipidemia) HTN (hypertension) On beta shannon at home Opioid use disorder Ulcerative colitis Family History Mother Stroke Diabetes mellitus HTN (hypertension), benign Hyperlipidemia Brother Diabetes mellitus Surgical History H/O cervical spine surgery H/O total colectomy History of colostomy reversal History of esophagogastroduodenoscopy (EGD) Hx of colonoscopy Social History Household Members: None Housing: Apartment Housing Other:: Rents a room Do you presently have visiting nurse or other home services: No Alcohol intake: never Patient Tobacco Use Status: Never used Tobacco Smoked in Last 30 Days: No e-Cigarette/Vaping Use: Never Used Patient Interested in Nicotine Replacement: No Patient Given Instructions on How to Stop Smoking: No Second Hand Smoke Exposure: No Use of substances other than those prescribed or required for medical reasons: No Substance Use Type: Heroin Currently Displaying Signs/Symptoms of Drug Intoxication Withdrawal: No Any prior treatment program specific to substance use: No Have you been hit, kicked, punched, or otherwise hurt by someone within the past year? If so, by whom?: No Do you feel safe in your current relationship?: No Is there a partner from a previous relationship who is making you feel unsafe now?: No Are you made to feel afraid or neglected: No Advance Directives: Yes Advance Directives on File: Yes Advance Directives Date on File: 03/08/21 Do you have thoughts of harming others: None Recently lost weight without trying: Yes Eating poorly because of decreased appetite: No Nutrition Risks: No Nutritional Risk Poor oral hygiene: No service: No Current occupational status: unemployed Meds Allergies Allergy/AdvReac Type Severity Reaction Status Date / Time Iodinated Contrast Media Allergy Intermediate HIVES Verified 07/07/22 14:36 [IV CONTRAST] prednisone [PREDNISONE] Allergy Mild RASH Verified 07/07/22 14:36 Active Medications: Current Medications Pharmacy Consult (Consult Rx Perform Med Rec) 1 each MISCELLANE ONCE PRN PRN Reason: Consult order Home Medications Medication Instructions Recorded Confirmed Last Taken Type felodipine 5 mg tablet,extended 1 tab PO BEDTIME 03/03/21 02/17/23 08/19/21 History release 24 hr mesalamine 400 mg capsule (with 2 cap PO TID 03/03/21 02/17/23 08/19/21 History delayed release tablets inside) metoprolol tartrate 50 mg tablet 1 tab PO BID 03/03/21 02/17/23 08/19/21 History pantoprazole 40 mg tablet,delayed 1 tab PO DAILY@0630 03/03/21 02/17/23 08/19/21 History release rosuvastatin 40 mg tablet 1 tab PO BEDTIME 03/03/21 02/17/23 08/19/21 History zolpidem 10 mg tablet 1 tab PO BEDTIME 03/03/21 02/17/23 08/19/21 History ferrous gluconate 324 mg (38 mg 1 tab PO QAM 06/30/21 02/17/23 08/19/21 History iron) tablet lidocaine 5 % topical patch 1 patch topical DAILY 08/20/21 02/17/23 08/19/21 History cyanocobalamin (vitamin B-12) 1 tab PO QAM 07/07/22 02/17/23 Unknown History 1,000 mcg tablet gabapentin 300 mg capsule 300 mg PO TID 02/17/23 02/17/23 Unknown History methadone 10 mg/mL oral concentrate 44 mg PO DAILY 02/17/23 02/17/23 02/17/23 History Physical Exam Vital Signs and Narrative: Vital Signs: Last Vital Signs Temp 98.2 F 02/17/23 10:51 Pulse 109 H 02/17/23 10:51 Resp 13 02/17/23 10:51 BP 111/75 02/17/23 10:51 Pulse Ox 95 02/17/23 10:51 O2 Del Method Room Air 02/17/23 10:51 BMI result Body Mass Index 33.7 Constitutional: Alert, in no acute distress. Mental Status: Oriented to person, place and time. Eyes: Pupils are equal, round, and reactive to light. Ear, Nose, and Throat: Oropharynx clear, mucous membranes dry. Ears and nose without deformities. Trachea midline. Respiratory: Clear to auscultation bilaterally. No wheezing, rales, or rhonchi. Cardiovascular: S1, S2 regular. No murmurs, rubs, or gallops. Gastrointestinal: Abdomen soft, obese, non-distended, diffusely tender. Normal bowel sounds. Neurologic: Cranial nerves II-XII are grossly intact bilaterally. No focal neurological deficits. Moves all extremities spontaneously. Skin: No rashes or lesions noted. Musculoskeletal: Diffuse tenderness of lower back, particularly on lower right and left quadrants. Extremities: No edema. Psychiatric: Normal mood and affect. Results Labs 02/17/23 11:33 02/17/23 12:20 Labs: Laboratory Results - last 24 hr 02/17/23 02/17/23 02/17/23 11:33 12:20 12:33 MCV 88.8 MCH 28.6 MCHC 32.2 RDW 17.9 H Plt Count 178 MPV 10.3 Immature Gran % (Auto) 0.5 H Neut % (Auto) 71.1 Lymph % (Auto) 17.4 L Cedar % (Auto) 10.5 Eos % (Auto) 0.3 Baso % (Auto) 0.2 Lymph # (Auto) 1.2 Cedar # (Auto) 0.7 Eos # (Auto) 0.0 Baso # (Auto) 0.0 Abs Immat Gran (auto) 0.03 Absolute Neuts (auto) 4.7 Absolute Nucleated RBC 0.000 Nucleated RBC % (auto) 0.0 Anion Gap 17 Estim Creat Clear Calc 9.5 Estimated GFR 5 Random Glucose 113 Calcium 8.1 L D Total Bilirubin 0.7 Direct Bilirubin 0.3 AST 43 H ALT 30 Alkaline Phosphatase 92 Total Protein 7.9 Albumin 4.0 Lipase 286 H Urine Color Dark Yellow Urine Appearance Cloudy Urine pH 5.0 Ur Specific [place] 1.020 Urine Protein 100 (2+) H Urine Glucose (UA) Negative Urine Ketones Trace Urine Blood Small (1+) H Urine Nitrite Negative Ur Leukocyte Esterase Negative Urine RBC 0-2 Urine WBC 0-5 Ur Squamous Epith Cells 6-10 Other Crystals Present Urine Bacteria None Seen Hyaline Casts 11-20 COVID-19 (NA[facility]) COVID-19 Clin Com 02/17/23 13:07 MCV MCH MCHC RDW Plt Count MPV Immature Gran % (Auto) Neut % (Auto) Lymph % (Auto) Cedar % (Auto) Eos % (Auto) Baso % (Auto) Lymph # (Auto) Cedar # (Auto) Eos # (Auto) Baso # (Auto) Abs Immat Gran (auto) Absolute Neuts (auto) Absolute Nucleated RBC Nucleated RBC % (auto) Anion Gap Estim Creat Clear Calc Estimated GFR Random Glucose Calcium Total Bilirubin Direct Bilirubin AST ALT Alkaline Phosphatase Total Protein Albumin Lipase Urine Color Urine Appearance Urine pH Ur Specific [place] Urine Protein Urine Glucose (UA) Urine Ketones Urine Blood Urine Nitrite Ur Leukocyte Esterase Urine RBC Urine WBC Ur Squamous Epith Cells Other Crystals Urine Bacteria Hyaline Casts COVID-19 (NANC[facility]) Negative COVID-19 Clin Com See Note Imaging Radiologist's Impressions: Impressions Abdomen/Pelvis CT 02/17/23 12:50 IMPRESSION: Total colectomy with anastomotic sites widely patent. No small bowel distention seen. No free air or free fluid seen. There are degenerative disc changes with spondylosis and endplate sclerosis L5-S1 disc level. Fleischner guidelines were followed. Assessment and Plan (1) Diarrhea: Status: Acute (2) Abdominal pain: Status: Acute (3) Acute kidney failure: Status: Acute Plan Pt is a 57-year-old male with a PMH significant for?ulcerative colitis s/p total colectomy with ileal pouch to anal anastomosis in 2007, CKD, depression, HTN, HLD, and history of opioid use disorder who presents to the ED with?three days of intractable nausea, vomiting, and diarrhea. CITLALY superimposed on CKD Patient with creatinine of 10.12, baseline likely somewhere around 2.00 Possibly secondary to dehydration due to vomiting, diarrhea, reduced p.o. intake Patient still making urine Patient given IVF in ED Continue IVF: Lactated Ringer's Nephrology consult Intractable nausea, vomiting, diarrhea Etiology unclear: no obvious source of infection, no WBC, pt afebrile Will check GI panel, C diff Will check ESR, CRP Continue pantroprazole, mesalamine Ondansetron p.r.n. IVF Patient diet as tolerated Peripheral neuropathy Reduce gabapentin to 100mg tid Insomnia Continue zolpidem HLD Continue statin HTN Continue felodipine, metoprolol Full Code Attending:?Dr. Bates DVT Prophylaxis: Heparin Pt will require a hospitalization of at least two nights for treatment of?CITLALY with IVF. Time Spent With Patient Time: Total time managing care of this patient today ____ minutes. Quality Stroke Does the patient have a stroke diagnosis?: No VTE Prior VTE?: No VTE Risk Level:: Medical - moderate - high VTE Device Contraindication: Treatment Not Indicated VTE Drug Contraindication: N/A - Med Ordered
[2023-02-17 14:36] LABS: Sodium Urine Random < 20.0 mmol/L
[2023-02-17 14:37] LABS: Phosphorus 5.9 mg/dL (2.7-4.5)
[2023-02-17 15:37] VITALS: BP 120/71; PULSE 88; RESP 14; TEMP 36.7; O2SAT 97
--- NOTE | 2023-02-17 15:39 | PC.NURSE ---
Alert and oriented, resp even and unlabored. Lower abd pain, 9/10 pain. Awaiting admission orders. Pt sleeping in stretcher at this time with call maria in reach.
[2023-02-17] MEDS: Heparin Sodium,Porcine 5,000 UNIT/ML VIAL 5000 UNIT SUBCUT ×2 (16:24→23:23)
[2023-02-17] MEDS: Lactated Ringers 1,000 ML 100 ML IVCONT (16:24)
--- NOTE | 2023-02-17 16:31 | PC.NURSE ---
LR infusing, sandwich and juice provided for the patient. No complaints at this time, watching tv call maria in reach
[2023-02-17 16:44] LABS: C Reactive Protein 1.24 mg/dL (< or = 0.50)
[2023-02-17 17:03] LABS: Erythrocyte Sedimentation Rate 17 MM/HR (0-15)
[2023-02-17 18:04] VITALS: BP 116/68; PULSE 86; RESP 16; TEMP 36.2; O2SAT 99
[2023-02-17 19:37] VITALS: BP 114/68; PULSE 81; RESP 16; TEMP 36.3; O2SAT 99
[2023-02-17] MEDS: traMADoL HCL 50 MG TABLET PO (19:59)
[2023-02-17] MEDS: 0.9 % Sodium Chloride Flush 3 ML SYRINGE IVFLUSH (20:01)
[2023-02-18] MEDS: Lactated Ringers 1,000 ML 100 ML IVCONT (01:07)
[2023-02-18 03:07] VITALS: BP 114/62; PULSE 82; RESP 16; TEMP 36.6; O2SAT 98
[2023-02-18] MEDS: oxyCODONE HCl Immed Release 5 MG TABLET PO (03:44)
[2023-02-18] MEDS: Acetaminophen 325 MG TABLET 650 MG PO (03:44)
--- NOTE | 2023-02-18 03:59 | MHC.PIE ---
p; 02/17 1930; pt c/o pain 06/22 abd shahana, pt also c/o diarrhea-unable to take sampled/t contamination i; dr shrestha notified; new order ultram now p; 02/18 315; pt c/o apin 08/22 sharp to abd. pt also c/o diarrhea - sample taken and sent to lab i; dr shrestha notified; new order oxy 5mg po now e; will cont to [facility]
[2023-02-18 04:22] LABS: Amphetamine Screen Urine Not Detected (Not Detect); Barbiturates, Urine Not Detected (Not Detect); Benzodiazepines Screen Urine Not Detected (Not Detect); Cannabinoid Screen Urine Not Detected (Not Detect); Cocaine Screen Urine POSITIVE (Not Detect); Fentanyl, urine POSITIVE (Not Detect); Opiate Screen Urine POSITIVE (Not Detect); Phencyclidine Screen Urine Not Detected (Not Detect)
[2023-02-18 05:10] LABS: CDiff Gene PCR POSITIVE (Negative)
[2023-02-18 05:42] LABS: CDIFF Internal ctrl Dots and bkg OK (V); CDiff Toxin Negative (Negative)
[2023-02-18 06:13] LABS: Hematocrit 37.2 % (42.0-52.0); Mean Corpuscular HGB Conc 32.3 g/dl (31.0-36.0); Mean Corpuscular Hemoglobin 28.6 pg (27.0-33.0); Mean Corpuscular Volume 88.8 fL (80.0-98.0); Mean Platelet Volume 10.9 fL (9.4-12.4); Red Blood Count 4.19 X10*6/uL (4.60-5.80); Red Cell Distribution Width 17.8 % (11.0-16.0); White Blood Count 4.2 X10*3/uL (4.8-10.8)
[2023-02-18 06:14] LABS: Platelet Count 96 X10*3/uL (160-400)
[2023-02-18 06:21] LABS: Anion Gap 19 (12-20); Blood Urea Nitrogen 72 mg/dL (9-16); Calcium 7.3 mg/dL (8.4-10.2); Carbon Dioxide 11 mmol/L (22-29); Chloride 110 mmol/L (96-108); Creatinine Clr Calc Pharmacy 12.7; Estimated Glomerular Filt Rate 7; Glucose Random 88 mg/dL (60-115); Potassium 4.1 mmol/L (3.3-5.1); Sodium 136 mmol/L (135-145)
[2023-02-18 06:57] VITALS: BP 120/71; PULSE 80; RESP 18; TEMP 35.8; O2SAT 99
[2023-02-18] MEDS: Lidocaine 4 % Patch ADH..PATCH 1 PATCH TRANSDERMA (08:41)
[2023-02-18] MEDS: Gabapentin 100 MG CAPSULE PO ×3 (08:41→19:45)
[2023-02-18] MEDS: Heparin Sodium,Porcine 5,000 UNIT/ML VIAL 5000 UNIT SUBCUT ×3 (08:41→23:34)
[2023-02-18] MEDS: Cyanocobalamin (Vitamin B-12) 1,000 MCG TABLET 1000 MCG PO (08:41)
[2023-02-18] MEDS: Metoprolol Tartrate 50 MG TABLET PO ×2 (08:41→19:45)
[2023-02-18] MEDS: Omeprazole 20 MG CAPSULE.DR PO (08:41)
[2023-02-18] MEDS: 0.9 % Sodium Chloride Flush 3 ML SYRINGE IVFLUSH (08:41)
[2023-02-18] MEDS: methADONE HCl 20 MG/2 ML ORAL.CONC 44 MG PO (09:22)
[2023-02-18] MEDS: traMADoL HCL 50 MG TABLET PO (09:22)
[2023-02-18] MEDS: Mesalamine 400 MG CAP.DRTAB. 800 MG PO ×3 (09:22→19:45)
[2023-02-18] MEDS: Sodium Bicarbonate 8.4% 150 MEQ in Dextrose 5 % 850 ML 100 MEQ IV ×2 (09:22→18:04)
--- NOTE | 2023-02-18 09:31 | MHC.CM.PN ---
PT REPORTS HE LIVES ALONE AND IS INDEPENDENT WITH CARE HE HAS NO DME AND NO SERVICES HE IS COVID [place] HCP ON FILE PCP @ [facility], HE DOES NOT KNOW NAME DCP: HOME NO SERVICES VIA SELF ARRANGED TRANSPORT
[2023-02-18 11:03] LABS: Adenovirus F 40/41 Not Detected (Not Detect.); Astrovirus Not Detected (Not Detect.); Campylobacter Not Detected (Not Detect.); Cryptosporidium Not Detected (Not Detect.); Cyclospora cayetanensis Not Detected (Not Detect.); E. coli EAEC Not Detected (Not Detect.); E. coli EPEC Not Detected (Not Detect.); E. coli ETEC Not Detected (Not Detect.); E. coli STEC Not Detected (Not Detect.); Entamoeba histolytica Not Detected (Not Detect.); Giardia lamblia Not Detected (Not Detect.); Norovirus GI/GII Not Detected (Not Detect.); Plesiomonas shigelloides Not Detected (Not Detect.); Rotavirus A Detected (Not Detect.); Salmonella Not Detected (Not Detect.); Sapovirus Not Detected (Not Detect.); Shigella sp./EIEC Not Detected (Not Detect.); Vibrio Not Detected (Not Detect.); Vibrio Cholerae Not Detected (Not Detect.); Yersinia enterocolitica Not Detected (Not Detect.)
--- NOTE | 2023-02-18 11:04 | HE.PHANOTE ---
Methadone confirmation from receieved from [facility] fredrick. 44mg last taken 02/16
--- NOTE | 2023-02-18 11:20 | P.PNIM_ITS ---
Subjective Subjective Date of Service: 02/18/23 Interval History: seen and evaluated still reporting diarrhea stoon panel +ve for rota virus Cr improving no other overnight events Review of Systems Review of Systems: Yes all other systems are reviewed and are negative Physical Exam Vital Signs: Vital Signs: Last Vital Signs Temp 96.5 F L 02/18/23 06:57 Pulse 80 02/18/23 06:57 Resp 18 02/18/23 06:57 BP 120/71 02/18/23 06:57 Pulse Ox 99 02/18/23 06:57 O2 Del Method Room Air 02/18/23 06:57 BMI result Body Mass Index 33.7 Const: Other: Constitutional : Awake, interactive, not in distress Neck : Normal inspection, Supple Cardiovascular : RRR, no JVP, no lower extremity edema Respiratory : good bilateral air entry, no crackles, wheezes or rhonchi Gastrointestinal: soft, lax, Normal bowel sounds, Non tender Skin : Warm, Dry Neurological : Alert & oriented x3, No focal deficit Objective Data Active Medications Acetaminophen (Acetaminophen 325 Mg Tablet) 650 mg PO Q6H PRN PRN Reason: Pain, Mild (Pain Scale 1-3) Last Admin: 02/18/23 03:44 Dose: 650 mg Documented By: KIKO Amlodipine Besylate (Amlodipine Besylate 5 Mg Tablet) 5 mg PO BEDTIME [facility] Atorvastatin Calcium (Atorvastatin Calcium 80 Mg Tablet) 80 mg PO BEDTIME [facility] Cyanocobalamin (Cyanocobalamin (Vitamin B-12) 1,000 Mcg Tablet) 1,000 mcg PO DAILY [facility] Last Admin: 02/18/23 08:41 Dose: 1,000 mcg Documented By: FIDE Gabapentin (Gabapentin 100 Mg Capsule) 100 mg PO TID [facility] Last Admin: 02/18/23 08:41 Dose: 100 mg Documented By: FIDE Heparin Sodium (Porcine) (Heparin Sodium,Porcine 5,000 Unit/Ml Vial) 5,000 unit SUBCUT Q8H [facility] Last Admin: 02/18/23 08:41 Dose: 5,000 unit Documented By: FIDE Hydroxyzine HCl (Hydroxyzine Hcl 25 Mg Tablet) 25 mg PO TID PRN PRN Reason: itching Sodium Bicarbonate 150 meq/ (Dextrose) 1,000 mls @ 100 mls/hr IV .Q10H [facility] Last Admin: 02/18/23 09:22 Dose: 100 mls/hr Documented By: FIDE Lidocaine (Lidocaine 4 % Patch Adh..Patch) 1 patch TRANSDERMA DAILY [facility] Last Admin: 02/18/23 08:41 Dose: 1 patch Documented By: FIDE Mesalamine (Mesalamine 400 Mg Cap.Drtab.) 800 mg PO TID [facility] Last Admin: 02/18/23 09:22 Dose: 800 mg Documented By: FIDE Methadone HCl (Methadone Hcl 20 Mg/2 Ml Oral.Conc) 44 mg PO DAILY [facility] Last Admin: 02/18/23 09:22 Dose: 44 mg Documented By: FIDE Metoprolol Tartrate (Metoprolol Tartrate 50 Mg Tablet) 50 mg PO BID [facility]; Protocol Last Admin: 02/18/23 08:41 Dose: 50 mg Documented By: FIDE Omeprazole (Omeprazole 20 Mg Capsule.Dr) 20 mg PO DAILY@0630 [facility] Last Admin: 02/18/23 08:41 Dose: 20 mg Documented By: FIDE Ondansetron HCl (Ondansetron Hcl 4 Mg/2 Ml Vial) 4 mg IVPUSH Q8H PRN PRN Reason: Nausea and Vomiting Pharmacy Consult (Consult Rx Perform Med Rec) 1 each MISCELLANE ONCE PRN PRN Reason: Consult order Sodium Chloride (0.9 % Sodium Chloride Flush 3 Ml Syringe) 3 ml IVFLUSH QSHIFT [facility] Last Admin: 02/18/23 08:41 Dose: 3 ml Documented By: FIDE Tramadol HCl (Tramadol Hcl 50 Mg Tablet) 50 mg PO Q6H PRN PRN Reason: Pain, Severe (Pain Scale 7-10) Last Admin: 02/18/23 09:22 Dose: 50 mg Documented By: FIDE Zolpidem Tartrate (Zolpidem Tartrate 5 Mg Tablet) 10 mg PO BEDTIME [facility] Labs 02/18/23 05:17 02/18/23 05:17 Labs: Laboratory Results - last 24 hr 02/17/23 02/17/23 02/17/23 11:33 11:33 12:20 MCV 88.8 MCH 28.6 MCHC 32.2 RDW 17.9 H Plt Count 178 MPV 10.3 Immature Gran % (Auto) 0.5 H Neut % (Auto) 71.1 Lymph % (Auto) 17.4 L [place] % (Auto) 10.5 Eos % (Auto) 0.3 Baso % (Auto) 0.2 Lymph # (Auto) 1.2 [place] # (Auto) 0.7 Eos # (Auto) 0.0 Baso # (Auto) 0.0 Abs Immat Gran (auto) 0.03 Absolute Neuts (auto) 4.7 Absolute Nucleated RBC 0.000 Nucleated RBC % (auto) 0.0 ESR 17 H Anion Gap 17 Estim Creat Clear Calc 9.5 Estimated GFR 5 Random Glucose 113 Calcium 8.1 L D Phosphorus 5.9 H Total Bilirubin 0.7 Direct Bilirubin 0.3 AST 43 H ALT 30 Alkaline Phosphatase 92 Total Creatine Kinase C-Reactive Protein 1.24 H Total Protein 7.9 Albumin 4.0 Lipase 286 H Urine Color Urine Appearance Urine pH Ur Specific [place] Urine Protein Urine Glucose (UA) Urine Ketones Urine Blood Urine Nitrite Ur Leukocyte Esterase Urine RBC Urine WBC Ur Squamous Epith Cells Other Crystals Urine Bacteria Hyaline Casts Ur Random Sodium Urine Creatinine Stl C. cayetanensis PCR Stool Rotavirus A PCR Stl Adenov F 40/41 PCR Stool Astrovirus (PCR) Stool Campylobacter PCR Stool Cryptosporidium PCR Stl Sh Tox Pr E STEC PCR Stool E coli O157 PCR Stl Enterotoxigenic E PCR Stool EPEC (PCR) Stool EAEC (PCR) Stl E. histolytica PCR Stool Giardia Lamblia PCR Stl P. shigelloides PCR Stool Salmonella PCR Stool Sapovirus (PCR) Stl Shigella/EIEC PCR St Y.enterocolitica PCR Stool Vibrio (PCR) Stl Vibrio cholerae PCR Stl Norovirus GI/GII PCR Urine Opiates Screen Urine Fentanyl Screen Ur Barbiturates Screen Ur Phencyclidine Scrn Ur Amphetamines Screen U Benzodiazepines Scrn Urine Cocaine Screen U Marijuana (THC) Screen C. difficile Tox B Gene C. difficile Toxin A&B C. difficile Interpret COVID-19 ([facility]) COVID-19 Clin Com 02/17/23 02/17/23 02/17/23 12:33 12:33 13:07 MCV MCH MCHC RDW Plt Count MPV Immature Gran % (Auto) Neut % (Auto) Lymph % (Auto) [place] % (Auto) Eos % (Auto) Baso % (Auto) Lymph # (Auto) [place] # (Auto) Eos # (Auto) Baso # (Auto) Abs Immat Gran (auto) Absolute Neuts (auto) Absolute Nucleated RBC Nucleated RBC % (auto) ESR Anion Gap Estim Creat Clear Calc Estimated GFR Random Glucose Calcium Phosphorus Total Bilirubin Direct Bilirubin AST ALT Alkaline Phosphatase Total Creatine Kinase C-Reactive Protein Total Protein Albumin Lipase Urine Color Dark Yellow Urine Appearance Cloudy Urine pH 5.0 Ur Specific [place] 1.020 Urine Protein 100 (2+) H Urine Glucose (UA) Negative Urine Ketones Trace Urine Blood Small (1+) H Urine Nitrite Negative Ur Leukocyte Esterase Negative Urine RBC 0-2 Urine WBC 0-5 Ur Squamous Epith Cells 6-10 Other Crystals Present Urine Bacteria None Seen Hyaline Casts 11-20 Ur Random Sodium < 20.0 Urine Creatinine 379.60 Stl C. cayetanensis PCR Stool Rotavirus A PCR Stl Adenov F 40/ PCR Stool Astrovirus (PCR) Stool Campylobacter PCR Stool Cryptosporidium PCR Stl Sh Tox Pr E STEC PCR Stool E coli O157 PCR Stl Enterotoxigenic E PCR Stool EPEC (PCR) Stool EAEC (PCR) Stl E. histolytica PCR Stool Giardia Lamblia PCR Stl P. shigelloides PCR Stool Salmonella PCR Stool Sapovirus (PCR) Stl Shigella/EIEC PCR St Y.enterocolitica PCR Stool Vibrio (PCR) Stl Vibrio cholerae PCR Stl Norovirus GI/GII PCR Urine Opiates Screen Urine Fentanyl Screen Ur Barbiturates Screen Ur Phencyclidine Scrn Ur Amphetamines Screen U Benzodiazepines Scrn Urine Cocaine Screen U Marijuana (THC) Screen C. difficile Tox B Gene C. difficile Toxin A&B C. difficile Interpret COVID-19 ([facility]) Negative COVID-19 Clin Com See Note 02/18/23 02/18/23 02/18/23 03:50 03:50 03:50 MCV MCH MCHC RDW Plt Count MPV Immature Gran % (Auto) Neut % (Auto) Lymph % (Auto) [place] % (Auto) Eos % (Auto) Baso % (Auto) Lymph # (Auto) [place] # (Auto) Eos # (Auto) Baso # (Auto) Abs Immat Gran (auto) Absolute Neuts (auto) Absolute Nucleated RBC Nucleated RBC % (auto) ESR Anion Gap Estim Creat Clear Calc Estimated GFR Random Glucose Calcium Phosphorus Total Bilirubin Direct Bilirubin AST ALT Alkaline Phosphatase Total Creatine Kinase C-Reactive Protein Total Protein Albumin Lipase Urine Color Urine Appearance Urine pH Ur Specific [place] Urine Protein Urine Glucose (UA) Urine Ketones Urine Blood Urine Nitrite Ur Leukocyte Esterase Urine RBC Urine WBC Ur Squamous Epith Cells Other Crystals Urine Bacteria Hyaline Casts Ur Random Sodium Urine Creatinine Stl C. cayetanensis PCR Not Detected Stool Rotavirus A PCR Detected A Stl Adenov F 40/41 PCR Not Detected Stool Astrovirus (PCR) Not Detected Stool Campylobacter PCR Not Detected Stool Cryptosporidium PCR Not Detected Stl Sh Tox Pr E STEC PCR Not Detected Stool E coli O157 PCR Not applicable Stl Enterotoxigenic E PCR Not Detected Stool EPEC (PCR) Not Detected Stool EAEC (PCR) Not Detected Stl E. histolytica PCR Not Detected Stool Giardia Lamblia PCR Not Detected Stl P. shigelloides PCR Not Detected Stool Salmonella PCR Not Detected Stool Sapovirus (PCR) Not Detected Stl Shigella/EIEC PCR Not Detected St Y.enterocolitica PCR Not Detected Stool Vibrio (PCR) Not Detected Stl Vibrio cholerae PCR Not Detected Stl Norovirus GI/GII PCR Not Detected Urine Opiates Screen POSITIVE H Urine Fentanyl Screen POSITIVE H Ur Barbiturates Screen Not Detected Ur Phencyclidine Scrn Not Detected Ur Amphetamines Screen Not Detected U Benzodiazepines Scrn Not Detected Urine Cocaine Screen POSITIVE H U Marijuana (THC) Screen Not Detected C. difficile Tox B Gene POSITIVE A* C. difficile Toxin A&B Negative C. difficile Interpret SEE NOTE COVID-19 ([facility]) COVID-19 Clin Com 02/18/23 02/18/23 05:17 05:17 MCV 88.8 MCH 28.6 MCHC 32.3 RDW 17.8 H Plt Count 96 L D MPV 10.9 Immature Gran % (Auto) Neut % (Auto) Lymph % (Auto) [place] % (Auto) Eos % (Auto) Baso % (Auto) Lymph # (Auto) [place] # (Auto) Eos # (Auto) Baso # (Auto) Abs Immat Gran (auto) Absolute Neuts (auto) Absolute Nucleated RBC 0.000 Nucleated RBC % (auto) 0.0 ESR Anion Gap 19 Estim Creat Clear Calc 12.7 Estimated GFR 7 Random Glucose 88 Calcium 7.3 L D Phosphorus Total Bilirubin Direct Bilirubin AST ALT Alkaline Phosphatase Total Creatine Kinase 212 H C-Reactive Protein Total Protein Albumin Lipase Urine Color Urine Appearance Urine pH Ur Specific [place] Urine Protein Urine Glucose (UA) Urine Ketones Urine Blood Urine Nitrite Ur Leukocyte Esterase Urine RBC Urine WBC Ur Squamous Epith Cells Other Crystals Urine Bacteria Hyaline Casts Ur Random Sodium Urine Creatinine Stl C. cayetanensis PCR Stool Rotavirus A PCR Stl Adenov F 40/41 PCR Stool Astrovirus (PCR) Stool Campylobacter PCR Stool Cryptosporidium PCR Stl Sh Tox Pr E STEC PCR Stool E coli O157 PCR Stl Enterotoxigenic E PCR Stool EPEC (PCR) Stool EAEC (PCR) Stl E. histolytica PCR Stool Giardia Lamblia PCR Stl P. shigelloides PCR Stool Salmonella PCR Stool Sapovirus (PCR) Stl Shigella/EIEC PCR St Y.enterocolitica PCR Stool Vibrio (PCR) Stl Vibrio cholerae PCR Stl Norovirus GI/GII PCR Urine Opiates Screen Urine Fentanyl Screen Ur Barbiturates Screen Ur Phencyclidine Scrn Ur Amphetamines Screen U Benzodiazepines Scrn Urine Cocaine Screen U Marijuana (THC) Screen C. difficile Tox B Gene C. difficile Toxin A&B C. difficile Interpret COVID-19 ([facility]) COVID-19 Clin Com Assessment and Plan (1) Acute kidney failure: Status: Acute (2) Diarrhea: Status: Acute Plan Pt is a 57-year-old male with a PMH significant for?ulcerative colitis s/p total colectomy with ileal pouch to anal anastomosis in 2007, CKD, depression, HTN, HLD, and history of opioid use disorder who presents to the ED with?three days of intractable nausea, vomiting, and diarrhea. CITLALY superimposed on CKD with metabolic acidosis likely secondary to dehydration , drug usage improving to 7.8 still making urine Change IVF to NaHCo3 Nephrology consult follow BMP Intractable nausea, vomiting, diarrhea 2/2 rota virus infx Continue pantroprazole, mesalamine Ondansetron p.r.n. Patient diet as tolerated Peripheral neuropathy Reduce gabapentin to 100mg tid Insomnia Continue zolpidem HLD Continue statin HTN Continue felodipine, metoprolol Full Code DVT Prophylaxis: Heparin Pt will require a hospitalization of overnight for treatment of?CITLALY pending nephrology evaluation Time Spent With Patient Time: Total time managing care of this patient today ____ minutes. Quality Stroke Does the patient have a stroke diagnosis?: No VTE Prior VTE?: No VTE Risk Level:: Medical - moderate - high VTE Device Contraindication: Treatment Not Indicated VTE Drug Contraindication: N/A - Med Ordered
[2023-02-18] MEDS: vancomycin HCL 125 MG CAPSULE PO ×3 (13:56→23:34)
[2023-02-18 14:59] LABS: Anion Gap 14 (12-20); Blood Urea Nitrogen 69 mg/dL (9-16); Calcium 7.2 mg/dL (8.4-10.2); Carbon Dioxide 18 mmol/L (22-29); Chloride 110 mmol/L (96-108); Creatinine Clr Calc Pharmacy 14.3; Estimated Glomerular Filt Rate 9; Glucose Random 89 mg/dL (60-115); Potassium 3.6 mmol/L (3.3-5.1); Sodium 138 mmol/L (135-145)
[2023-02-18 15:01] VITALS: BP 110/64; PULSE 65; RESP 16; TEMP 36.9; O2SAT 98
--- NOTE | 2023-02-18 15:14 | P.EN_ITS ---
Event Note Date of Service: 02/18/23 Event Note: Pt seen and examined Full consult dictated Pt is a 57-year-old male with a PMH significant for?ulcerative colitis s/p total colectomy with ileal pouch to anal anastomosis in 2007, CKD3 , depression, HTN, HLD, and history of opioid use disorder who presents to the ED with?three days of intractable nausea, vomiting, and diarrhea. CITLALY - Prerenal No [place] on CT CKD 3 at baseline- Cr around 1.3 - 1.5 AG metabolic acidosis CR improving to 7.8 Making urine IVF with NaHCo3 Urine studies ordered [place] Nephrotoxins follow BMP Time Spent With Patient Time: Total time managing care of this patient today ____ minutes.
[2023-02-18 19:27] VITALS: BP 116/74; PULSE 70; RESP 16; TEMP 36.6; O2SAT 98
[2023-02-18] MEDS: Zolpidem Tartrate 5 MG TABLET 10 MG PO (19:45)
[2023-02-18] MEDS: amLODIPine Besylate 5 MG TABLET PO (19:45)
[2023-02-18] MEDS: Atorvastatin Calcium 80 MG TABLET PO (19:45)
[2023-02-19] MEDS: Sodium Bicarbonate 8.4% 150 MEQ in Dextrose 5 % 850 ML 100 MEQ IV (02:22)
[2023-02-19 04:02] VITALS: BP 140/80; PULSE 68; RESP 16; TEMP 36
[2023-02-19 05:29] LABS: Hematocrit 37.3 % (42.0-52.0); Hemoglobin 12.1 g/dl (14.0-18.0); Mean Corpuscular HGB Conc 32.4 g/dl (31.0-36.0); Mean Corpuscular Hemoglobin 28.3 pg (27.0-33.0); Mean Corpuscular Volume 87.4 fL (80.0-98.0); Mean Platelet Volume 9.8 fL (9.4-12.4); Platelet Count 127 X10*3/uL (160-400); Red Blood Count 4.27 X10*6/uL (4.60-5.80); Red Cell Distribution Width 17.9 % (11.0-16.0); White Blood Count 5.2 X10*3/uL (4.8-10.8)
[2023-02-19] MEDS: Omeprazole 20 MG CAPSULE.DR PO (05:55)
[2023-02-19] MEDS: vancomycin HCL 125 MG CAPSULE PO ×4 (05:55→23:48)
[2023-02-19 06:15] LABS: Anion Gap 13 (12-20); Blood Urea Nitrogen 59 mg/dL (9-16); Calcium 7.1 mg/dL (8.4-10.2); Carbon Dioxide 27 mmol/L (22-29); Chloride 103 mmol/L (96-108); Creatinine Clr Calc Pharmacy 19.2; Estimated Glomerular Filt Rate 12; Glucose Random 84 mg/dL (60-115); Potassium 3.1 mmol/L (3.3-5.1); Sodium 140 mmol/L (135-145)
[2023-02-19 07:38] VITALS: BP 132/81; PULSE 65; RESP 18; O2SAT 100
[2023-02-19] MEDS: Cyanocobalamin (Vitamin B-12) 1,000 MCG TABLET 1000 MCG PO (07:39)
[2023-02-19] MEDS: methADONE HCl 20 MG/2 ML ORAL.CONC 44 MG PO (07:39)
[2023-02-19] MEDS: Heparin Sodium,Porcine 5,000 UNIT/ML VIAL 5000 UNIT SUBCUT ×3 (07:39→23:48)
[2023-02-19] MEDS: Lidocaine 4 % Patch ADH..PATCH 1 PATCH TRANSDERMA (07:40)
[2023-02-19] MEDS: Metoprolol Tartrate 50 MG TABLET PO ×2 (07:40→19:51)
[2023-02-19] MEDS: Mesalamine 400 MG CAP.DRTAB. 800 MG PO ×3 (07:40→19:51)
[2023-02-19] MEDS: Gabapentin 100 MG CAPSULE PO ×3 (07:40→19:51)
[2023-02-19] MEDS: Potassium Chloride Packet 20 MEQ PACKET 40 MEQ PO ×2 (09:01→10:33)
[2023-02-19] MEDS: traMADoL HCL 50 MG TABLET PO (09:01)
[2023-02-19] MEDS: Lactated Ringers 1,000 ML 100 ML IVCONT ×2 (09:01→18:20)
--- NOTE | 2023-02-19 11:31 | P.PNIM_ITS ---
Subjective Subjective Date of Service: 02/19/23 Interval History: seen and evaluated still reporting diarrhea stoon panel +ve for rota virus and C.Diff carrier Cr improving no other overnight events Review of Systems Review of Systems: Yes all other systems are reviewed and are negative Physical Exam Vital Signs: Vital Signs: Last Vital Signs Temp 96.8 F 02/19/23 04:02 Pulse 65 02/19/23 07:38 Resp 18 02/19/23 07:38 BP 132/81 02/19/23 07:38 Pulse Ox 100 02/19/23 07:38 O2 Del Method Room Air 02/19/23 07:38 BMI result Body Mass Index 33.7 Const: Other: Constitutional : Awake, interactive, not in distress Neck : Normal inspection, Supple Cardiovascular : RRR, no JVP, no lower extremity edema Respiratory : good bilateral air entry, no crackles, wheezes or rhonchi Gastrointestinal: soft, lax, Normal bowel sounds, Non tender Skin : Warm, Dry Neurological : Alert & oriented x3, No focal deficit Objective Data Active Medications Acetaminophen (Acetaminophen 325 Mg Tablet) 650 mg PO Q6H PRN PRN Reason: Pain, Mild (Pain Scale 1-3) Last Admin: 02/18/23 03:44 Dose: 650 mg Documented By: KIKO Amlodipine Besylate (Amlodipine Besylate 5 Mg Tablet) 5 mg PO BEDTIME [facility] Last Admin: 02/18/23 19:45 Dose: 5 mg Documented By: KIKO Atorvastatin Calcium (Atorvastatin Calcium 80 Mg Tablet) 80 mg PO BEDTIME [facility] Last Admin: 02/18/23 19:45 Dose: 80 mg Documented By: KIKO Cyanocobalamin (Cyanocobalamin (Vitamin B-12) 1,000 Mcg Tablet) 1,000 mcg PO DAILY [facility] Last Admin: 02/19/23 07:39 Dose: 1,000 mcg Documented By: FIDE Gabapentin (Gabapentin 100 Mg Capsule) 100 mg PO TID [facility] Last Admin: 02/19/23 07:40 Dose: 100 mg Documented By: FIDE Heparin Sodium (Porcine) (Heparin Sodium,Porcine 5,000 Unit/Ml Vial) 5,000 unit SUBCUT Q8H [facility] Last Admin: 02/19/23 07:39 Dose: 5,000 unit Documented By: FIDE Hydroxyzine HCl (Hydroxyzine Hcl 25 Mg Tablet) 25 mg PO TID PRN PRN Reason: itching Lactated Ringer's (Lr) 1,000 mls @ 100 mls/hr IVCONT .Q10H [facility] Last Admin: 02/19/23 09:01 Dose: 100 mls/hr Documented By: FIDE Lidocaine (Lidocaine 4 % Patch Adh..Patch) 1 patch TRANSDERMA DAILY [facility] Last Admin: 02/19/23 07:40 Dose: 1 patch Documented By: FIDE Mesalamine (Mesalamine 400 Mg Cap.Drtab.) 800 mg PO TID [facility] Last Admin: 02/19/23 07:40 Dose: 800 mg Documented By: FIDE Methadone HCl (Methadone Hcl 20 Mg/2 Ml Oral.Conc) 44 mg PO DAILY [facility] Last Admin: 02/19/23 07:39 Dose: 44 mg Documented By: FIDE Metoprolol Tartrate (Metoprolol Tartrate 50 Mg Tablet) 50 mg PO BID [facility]; Protocol Last Admin: 02/19/23 07:40 Dose: 50 mg Documented By: FIDE Omeprazole (Omeprazole 20 Mg Capsule.Dr) 20 mg PO DAILY@0630 [facility] Last Admin: 02/19/23 05:55 Dose: 20 mg Documented By: KIKO Ondansetron HCl (Ondansetron Hcl 4 Mg/2 Ml Vial) 4 mg IVPUSH Q8H PRN PRN Reason: Nausea and Vomiting Pharmacy Consult (Consult Rx Perform Med Rec) 1 each MISCELLANE ONCE PRN PRN Reason: Consult order Sodium Chloride (0.9 % Sodium Chloride Flush 3 Ml Syringe) 3 ml IVFLUSH QSHIFT [facility] Last Admin: 02/19/23 07:47 Dose: Not Given Documented By: FIDE Non-Admin Reason: IV Running Tramadol HCl (Tramadol Hcl 50 Mg Tablet) 50 mg PO Q6H PRN PRN Reason: Pain, Severe (Pain Scale 7-10) Last Admin: 02/19/23 09:01 Dose: 50 mg Documented By: FIDE Vancomycin HCl (Vancomycin Hcl 125 Mg Capsule) 125 mg PO Q6H [facility] Last Admin: 02/19/23 05:55 Dose: 125 mg Documented By: KIKO Zolpidem Tartrate (Zolpidem Tartrate 5 Mg Tablet) 10 mg PO BEDTIME [facility] Last Admin: 02/18/23 19:45 Dose: 10 mg Documented By: KIKO Labs 02/19/23 05:18 02/19/23 05:18 Labs: Laboratory Results - last 24 hr 02/18/23 02/19/23 02/19/23 14:02 05:18 05:18 MCV 87.4 MCH 28.3 MCHC 32.4 RDW 17.9 H Plt Count 127 L D MPV 9.8 Absolute Nucleated RBC 0.000 Nucleated RBC % (auto) 0.0 Anion Gap 14 13 Estim Creat Clear Calc 14.3 19.2 Estimated GFR 9 12 Random Glucose 89 84 Calcium 7.2 L 7.1 L Assessment and Plan (1) Diarrhea: Status: Acute (2) Acute kidney failure: Status: Acute Plan Pt is a 57-year-old male with a PMH significant for?ulcerative colitis s/p total colectomy with ileal pouch to anal anastomosis in 2007, CKD, depression, HTN, HLD, and history of opioid use disorder who presents to the ED with?three days of intractable nausea, vomiting, and diarrhea. CITLALY superimposed on CKD with metabolic acidosis likely secondary to dehydration , drug usage improving to 5 still making urine Change IVF to LR Nephrology consult follow BMP Intractable nausea, vomiting, diarrhea 2/2 rota virus infx Continue pantroprazole, mesalamine Ondansetron p.r.n. Patient diet as tolerated C.Diff carrier no evidence of colitis to cover with po Vanco given ongoing diarrhea acute hypokalemia replacement follow BMP Peripheral neuropathy Reduce gabapentin to 100mg tid Insomnia Continue zolpidem HLD Continue statin HTN Continue felodipine, metoprolol Full Code DVT Prophylaxis: Heparin Pt will require a hospitalization of overnight for treatment of?CITLALY pending improvement Time Spent With Patient Time: Total time managing care of this patient today ____ minutes. Quality Stroke Does the patient have a stroke diagnosis?: No VTE Prior VTE?: No VTE Risk Level:: Medical - moderate - high VTE Device Contraindication: Treatment Not Indicated VTE Drug Contraindication: N/A - Med Ordered
--- NOTE | 2023-02-19 14:13 | PM.PNNEP ---
Subjective Subjective Date of Service: 02/19/23 Interval history: seen and evaluated + diarrhea Cr improving no other overnight events Physical Exam Vital Signs: Vital Signs: Last Vital Signs Temp 96.8 F 02/19/23 04:02 Pulse 65 02/19/23 07:38 Resp 18 02/19/23 07:38 BP 132/81 02/19/23 07:38 Pulse Ox 100 02/19/23 07:38 O2 Del Method Room Air 02/19/23 07:38 BMI result Body Mass Index 33.7 Const: Other: Constitutional : Awake, interactive, not in distress Neck : Normal inspection, Supple Cardiovascular : RRR, no JVP, no lower extremity edema Respiratory : good bilateral air entry, no crackles, wheezes or rhonchi Gastrointestinal: soft, lax, Normal bowel sounds, Non tender Skin : Warm, Dry Neurological : Alert & oriented x3, No focal deficit Objective Data Labs 02/19/23 05:18 02/19/23 05:18 Labs: Laboratory Results - last 24 hr 02/18/23 02/19/23 02/19/23 14:02 05:18 05:18 WBC 5.2 RBC 4.27 L Hgb 12.1 L Hct 37.3 L MCV 87.4 MCH 28.3 MCHC 32.4 RDW 17.9 H Plt Count 127 L D MPV 9.8 Absolute Nucleated RBC 0.000 Nucleated RBC % (auto) 0.0 Sodium 138 140 Potassium 3.6 3.1 L Chloride 110 H 103 Carbon Dioxide 18 L 27 Anion Gap 14 13 BUN 69 H 59 H Creatinine 6.74 H* 5.02 H* Estim Creat Clear Calc 14.3 19.2 Estimated GFR 9 12 Random Glucose 89 84 Calcium 7.2 L 7.1 L Procedures Date of Service Date of Service: 02/19/23 Assessment & Plan Assessment and plan (1) Acute kidney failure: Status: Acute (2) CKD (chronic kidney disease): Status: Acute (3) Diarrhea: Status: Acute Plan Pt is a 57-year-old male with a PMH significant for?ulcerative colitis s/p total colectomy with ileal pouch to anal anastomosis in 2007, CKD3 , depression, HTN, HLD, and history of opioid use disorder who presents to the ED with?three days of intractable nausea, vomiting, and diarrhea. CITLALY - Prerenal- Cr better No [place] on CT CKD 3 at baseline- Cr around 1.3 - 1.5 AG? metabolic acidosis- resolved Low Ca/ K _ in the setting of Hydration with Bicarb CR improving Making urine D/c IVF with Bicarb - Can Use LR Urine studies reviewed Avoid Nephrotoxins d/w Medical team follow BMP Time Spent With Patient Time: Total time managing care of this patient today ____ minutes. Progress Note: Quality Stroke Does the patient have a stroke diagnosis?: No
--- NOTE | 2023-02-19 14:51 | MHC.RECOVRN ---
This fiction and nonfiction writer prose met w/ patient after addiction consult was placed. Patient was sitting in chair by window, awake, alert. Patient reports on 45mg MTD for past 3 months at [facility]. Patient reports 2 weeks, self directed to decrease from 65mg to 40mg MTD, patient states upon steve, started using opiates. Patient reports past 2 weeks, using daily 3 bags heroin [place], patient reports AQUILINO occasionally. 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 Patient states plans to follow up with [facility] clinic upon discharge to review steve. Patient familiar with accessing recovery supports and levels of treatment, patient reports all set w/ recovery supports.
[2023-02-19] MEDS: 0.9 % Sodium Chloride Flush 3 ML SYRINGE IVFLUSH (15:16)
[2023-02-19 16:00] VITALS: BP 154/91; PULSE 67; RESP 20; TEMP 36.2; O2SAT 98
[2023-02-19] MEDS: Zolpidem Tartrate 5 MG TABLET 10 MG PO (19:51)
[2023-02-19] MEDS: Atorvastatin Calcium 80 MG TABLET PO (19:51)
[2023-02-19] MEDS: amLODIPine Besylate 5 MG TABLET PO (19:52)
[2023-02-19 20:00] VITALS: BP 141/80; PULSE 70; RESP 16; TEMP 36.6; O2SAT 96
[2023-02-20] MEDS: Lactated Ringers 1,000 ML 100 ML IVCONT ×2 (03:10→13:27)
[2023-02-20 03:39] VITALS: BP 145/82; PULSE 85; RESP 16; TEMP 36.4; O2SAT 99
[2023-02-20] MEDS: Omeprazole 20 MG CAPSULE.DR PO (06:26)
[2023-02-20] MEDS: vancomycin HCL 125 MG CAPSULE PO ×3 (06:26→21:14)
[2023-02-20 07:37] VITALS: BP 141/89; PULSE 73; RESP 16; TEMP 36.1; O2SAT 98
[2023-02-20] MEDS: Heparin Sodium,Porcine 5,000 UNIT/ML VIAL 5000 UNIT SUBCUT ×3 (08:11→23:50)
[2023-02-20] MEDS: Metoprolol Tartrate 50 MG TABLET PO ×2 (08:11→21:15)
[2023-02-20] MEDS: Cyanocobalamin (Vitamin B-12) 1,000 MCG TABLET 1000 MCG PO (08:12)
[2023-02-20] MEDS: methADONE HCl 20 MG/2 ML ORAL.CONC 44 MG PO (08:12)
[2023-02-20] MEDS: Lidocaine 4 % Patch ADH..PATCH 1 PATCH TRANSDERMA (08:12)
[2023-02-20] MEDS: Gabapentin 100 MG CAPSULE PO ×3 (08:12→21:14)
[2023-02-20] MEDS: Mesalamine 400 MG CAP.DRTAB. 800 MG PO ×3 (08:12→21:14)
[2023-02-20 08:27] LABS: Anion Gap 15 (12-20); Blood Urea Nitrogen 39 mg/dL (9-16); Carbon Dioxide 29 mmol/L (22-29); Chloride 104 mmol/L (96-108); Creatinine Clr Calc Pharmacy 34.6; Estimated Glomerular Filt Rate 24; Glucose Random 127 mg/dL (60-115); Potassium 3.7 mmol/L (3.3-5.1); Sodium 144 mmol/L (135-145)
--- NOTE | 2023-02-20 09:15 | CONS_ITS ---
DATE OF SERVICE: 02/18/2023 REASON FOR CONSULTATION: Consult requested by the medical team to evaluate and help in management of patient with severe acute kidney injury. HISTORY OF PRESENT ILLNESS: The patient is a 57-year-old male with past medical history of ulcerative colitis, status post total colectomy, ileal pouch-anal anastomosis in 2007, chronic kidney disease, depression, hypertension, who presents to the hospital with complaints of 3 days of intractable nausea, vomiting, and diarrhea. He has had extensive abdominal surgeries and multiple admissions for abdominal pain in the past. The patient stated that the symptoms began 3 days ago with sudden onset of intractable nausea, vomiting, and diarrhea. There is no fever. There was some chills, but no abdominal pain. Vomitus was apparently clear without signs of blood. Diarrhea was green colored without evidence of blood. The patient eventually developed diffuse abdominal pain after vomiting multiple times. In the ER, patient was tachycardic. His sodium was low at 133. BUN is significantly elevated at 79 with a creatinine of 10.12. His creatinine at baseline was around 1.3 in 2000. He had elevated lipase. Urine suggestive of UTI. CT of the abdomen did not show any acute process. There was no hydronephrosis. The patient was given IV fluids, famotidine, and unfortunately he was also given ketorolac. He was admitted for further evaluation. His creatinine is hemodynamically stable at the present time when I saw him and he is continuing to have diarrhea. He is nonoliguric with output of around 1800 cc. His creatinine had improved to 6.74. There is no history of renal stones. REVIEW OF SYSTEMS: As noted above. Other systems reviewed and negative. PAST MEDICAL HISTORY: History of chronic kidney disease stage 3 at baseline, colitis, constipation, Crohn disease with both small and large intestine, hyperlipidemia, hypertension, beta-blockers at home, opioid use, and ulcerative colitis. FAMILY HISTORY: Includes history of mother having stroke, diabetes, hypertension, hyperlipidemia. Brother having diabetes mellitus. PAST SURGICAL HISTORY: History of cervical spine surgery, total colectomy, history of colorectal reversal, esophagogastrojejunostomy, and history of colonoscopy. PERSONAL AND SOCIAL HISTORY: Patient does not drink alcohol, does not smoke, does not use drugs. ALLERGIES: PATIENT HAS ALLERGIES TO IV CONTRAST AND PREDNISONE. MEDICATIONS: At home include felodipine, mesalamine, metoprolol, pantoprazole, rosuvastatin, zolpidem, ferrous gluconate, lidocaine, cyanocobalamin, gabapentin, methadone. PHYSICAL EXAMINATION: GENERAL: Patient is resting in the bed. Awake, alert, oriented x3. VITAL SIGNS: Blood pressure was 120/71, pulse 80, afebrile. HEENT: Shows pupils equal bilaterally to light. No jugular venous distention is noted. Mucosa dry. There is no scleral icterus or conjunctival congestion. NECK: Supple. No thyromegaly is noted. CARDIOVASCULAR SYSTEM: S1, S2 without rub or murmur. RESPIRATORY SYSTEM: Decreased in bases. ABDOMEN: Distended, soft, nontender. No guarding. No rigidity. Bowel sounds normal. EXTREMITIES: Showed no edema. There is no peripheral cyanosis or clubbing. LABORATORY DATA: Done recently; sodium 136, potassium 4.1, chloride 110, CO2 of 11, BUN 72, creatinine 7.58 and repeat later today was 6.74. Hemoglobin 12, hematocrit 37, platelets were 96. IMPRESSION: 1. A 57-year-old male with acute kidney injury. Acute kidney injury in this patient likely secondary to severe prerenal azotemia/dehydration in the setting of GI fluid losses. He is not on any nephrotoxic agents based on the information available to me. Imaging studies of his kidneys, which include CT scan of the abdomen and pelvis did not show any evidence of hydronephrosis. There are no renal calculi. Urine testing did not show any evidence of acute GN/interstitial disease. Urine sodium was also low, which is pointing towards prerenal state and his renal function improved with hydration. 2. Chronic kidney disease stage 3 at baseline in the setting of longstanding hypertension and hypertensive nephrosclerosis. 3. Non-anion gap metabolic acidosis. At the present time, initially anion-gap metabolic acidosis which is improving. 4. Hyponatremia which is hypovolemic, which is again improved. 5. Rotavirus infection will cause GI fluid losses. 6. Hypertension. Blood pressure was acceptable. RECOMMENDATIONS: At this juncture, I would recommend continuation of aggressive IV dehydration. I agree with using bicarbonate in the IV fluids as the patient has bicarb loss with diarrhea. We should avoid using nephrotoxic agents and continue the present antihypertensive regimen. I would recommend checking renal function and electrolytes closely. We should also check and replace as needed. Check renal function again in a.m. There is no immediate need for renal replacement therapy at this juncture. Thank you for allowing me to participate in medical management of the patient. MD SONAL Benavides/CHAD / [phone]
--- NOTE | 2023-02-20 10:38 | P.PNNP_ITS ---
Subjective Subjective Date of Service: 02/20/23 Interval history: Events noted; All recent labs reviewed. Renal functions better Physical Exam Vital Signs: Vital Signs: Last Vital Signs Temp 97.0 F 02/20/23 07:37 Pulse 73 02/20/23 07:37 Resp 16 02/20/23 07:37 BP 141/89 H 02/20/23 07:37 Pulse Ox 98 02/20/23 07:37 O2 Del Method Room Air 02/20/23 07:37 BMI result Body Mass Index 33.7 Const: General: no acute distress Eyes: EOM: EOMs intact bilaterally Neck: Neck: Yes supple Resp: Auscultation: diminished lung sounds Cardio: Rate: regular rate GI: Palpation (GI): Soft to palpation Neuro: General: moves all extremities Objective Data Labs 02/19/23 05:18 02/20/23 08:03 Labs: Laboratory Results - last 24 hr 02/20/23 08:03 Sodium 144 Potassium 3.7 Chloride 104 Carbon Dioxide 29 Anion Gap 15 BUN 39 H Creatinine 2.79 H Estim Creat Clear Calc 34.6 Estimated GFR 24 Random Glucose 127 H Calcium 7.0 L Procedures Date of Service Date of Service: 02/20/23 Assessment & Plan Assessment and plan (1) Acute kidney failure: Status: Acute Assessment and Plan: 57-year-old male with a PMH significant for?ulcerative colitis s/p total colectomy with ileal pouch to anal anastomosis in 2007, CKD3 , depression, HTN, HLD, and history of opioid use disorder who presents to the ED with?three days of intractable nausea, vomiting, and diarrhea. Renal function improving No [place] on CT CKD 3 at baseline(1.3 - 1.5) No indication for renal replacement C/w rest of current management Progress Note: Quality Stroke Does the patient have a stroke diagnosis?: No
--- NOTE | 2023-02-20 10:55 | P.PNIM_ITS ---
Subjective Subjective Date of Service: 02/20/23 Interval History: seen and evaluated Creatinine improving still reporting diarrhea stoon panel +ve for rota virus and C.Diff carrier no other overnight events Review of Systems Review of Systems: Yes all other systems are reviewed and are negative Physical Exam Vital Signs: Vital Signs: Last Vital Signs Temp 97.0 F 02/20/23 07:37 Pulse 73 02/20/23 07:37 Resp 16 02/20/23 07:37 BP 141/89 H 02/20/23 07:37 Pulse Ox 98 02/20/23 07:37 O2 Del Method Room Air 02/20/23 07:37 BMI result Body Mass Index 33.7 Const: Other: Constitutional : Awake, interactive, not in distress Neck : Normal inspection, Supple Cardiovascular : RRR, no JVP, no lower extremity edema Respiratory : good bilateral air entry, no crackles, wheezes or rhonchi Gastrointestinal: soft, lax, Normal bowel sounds, Non tender Skin : Warm, Dry Neurological : Alert & oriented x3, No focal deficit Objective Data Active Medications Acetaminophen (Acetaminophen 325 Mg Tablet) 650 mg PO Q6H PRN PRN Reason: Pain, Mild (Pain Scale 1-3) Last Admin: 02/18/23 03:44 Dose: 650 mg Documented By: KIKO Amlodipine Besylate (Amlodipine Besylate 5 Mg Tablet) 5 mg PO BEDTIME [facility] Last Admin: 02/19/23 19:52 Dose: 5 mg Documented By: KIKO Atorvastatin Calcium (Atorvastatin Calcium 80 Mg Tablet) 80 mg PO BEDTIME [facility] Last Admin: 02/19/23 19:51 Dose: 80 mg Documented By: KIKO Cyanocobalamin (Cyanocobalamin (Vitamin B-12) 1,000 Mcg Tablet) 1,000 mcg PO DAILY [facility] Last Admin: 02/20/23 08:12 Dose: 1,000 mcg Documented By: HILLARY Gabapentin (Gabapentin 100 Mg Capsule) 100 mg PO TID [facility] Last Admin: 02/20/23 08:12 Dose: 100 mg Documented By: HILLARY Heparin Sodium (Porcine) (Heparin Sodium,Porcine 5,000 Unit/Ml Vial) 5,000 unit SUBCUT Q8H [facility] Last Admin: 02/20/23 08:11 Dose: 5,000 unit Documented By: HILLARY Hydroxyzine HCl (Hydroxyzine Hcl 25 Mg Tablet) 25 mg PO TID PRN PRN Reason: itching Lactated Ringer's (Lr) 1,000 mls @ 100 mls/hr IVCONT .Q10H [facility] Last Admin: 02/20/23 03:10 Dose: 100 mls/hr Documented By: KIKO Lidocaine (Lidocaine 4 % Patch Adh..Patch) 1 patch TRANSDERMA DAILY [facility] Last Admin: 02/20/23 08:12 Dose: 1 patch Documented By: HILLARY Mesalamine (Mesalamine 400 Mg Cap.Drtab.) 800 mg PO TID [facility] Last Admin: 02/20/23 08:12 Dose: 800 mg Documented By: HILLARY Methadone HCl (Methadone Hcl 20 Mg/2 Ml Oral.Conc) 44 mg PO DAILY [facility] Last Admin: 02/20/23 08:12 Dose: 44 mg Documented By: HILLARY Metoprolol Tartrate (Metoprolol Tartrate 50 Mg Tablet) 50 mg PO BID [facility]; Gisselle col Last Admin: 02/20/23 08:11 Dose: 50 mg Documented By: HILLARY Omeprazole (Omeprazole 20 Mg Capsule.Dr) 20 mg PO DAILY@0630 [facility] Last Admin: 02/20/23 06:26 Dose: 20 mg Documented By: KIKO Ondansetron HCl (Ondansetron Hcl 4 Mg/2 Ml Vial) 4 mg IVPUSH Q8H PRN PRN Reason: Nausea and Vomiting Pharmacy Consult (Consult Rx Perform Med Rec) 1 each MISCELLANE ONCE PRN PRN Reason: Consult order Sodium Chloride (0.9 % Sodium Chloride Flush 3 Ml Syringe) 3 ml IVFLUSH QSHIFT [facility] Last Admin: 02/20/23 07:39 Dose: Not Given Documented By: HILLARY Non-Admin Reason: IV Running Tramadol HCl (Tramadol Hcl 50 Mg Tablet) 50 mg PO Q6H PRN PRN Reason: Pain, Severe (Pain Scale 7-10) Last Admin: 02/19/23 09:01 Dose: 50 mg Documented By: FIDE Vancomycin HCl (Vancomycin Hcl 125 Mg Capsule) 125 mg PO Q6H [facility] Last Admin: 02/20/23 06:26 Dose: 125 mg Documented By: KIKO Zolpidem Tartrate (Zolpidem Tartrate 5 Mg Tablet) 10 mg PO BEDTIME [facility] Last Admin: 02/19/23 19:51 Dose: 10 mg Documented By: KIKO Labs 02/19/23 05:18 02/20/23 08:03 Labs: Laboratory Results - last 24 hr 02/20/23 08:03 Anion Gap 15 Estim Creat Clear Calc 34.6 Estimated GFR 24 Random Glucose 127 H Calcium 7.0 L Assessment and Plan (1) Diarrhea: Status: Acute (2) Acute kidney failure: Status: Acute Plan Pt is a 57-year-old male with a PMH significant for?ulcerative colitis s/p total colectomy with ileal pouch to anal anastomosis in 2007, CKD, depression, HTN, HLD, and history of opioid use disorder who presents to the ED with?three days of intractable nausea, vomiting, and diarrhea. CITLALY superimposed on CKD with metabolic acidosis likely secondary to dehydration , drug usage improving to 2.8 still making urine continue LR Nephrology consult follow BMP Intractable nausea, vomiting, diarrhea still having up to 10 episodes of diarrhea daily 2/2 rota virus infx Continue pantroprazole, mesalamine Ondansetron p.r.n. Patient diet as tolerated C.Diff carrier no evidence of colitis to cover with po Vanco given ongoing diarrhea acute hypokalemia replacement follow BMP Peripheral neuropathy Reduce gabapentin to 100mg tid Insomnia Continue zolpidem HLD Continue statin HTN Continue felodipine, metoprolol Full Code DVT Prophylaxis: Heparin Pt will require a hospitalization of overnight for treatment of?CITLALY pending improvement Time Spent With Patient Time: Total time managing care of this patient today ____ minutes. Quality Stroke Does the patient have a stroke diagnosis?: No VTE Prior VTE?: No VTE Risk Level:: Medical - moderate - high VTE Device Contraindication: Treatment Not Indicated VTE Drug Contraindication: N/A - Med Ordered
--- NOTE | 2023-02-20 15:02 | MHC.CM.PN ---
per rounds today pt will likely be dcd monday dc plan remains home no servceis
[2023-02-20] MEDS: 0.9 % Sodium Chloride Flush 3 ML SYRINGE IVFLUSH (16:44)
[2023-02-20 19:23] VITALS: BP 165/92; PULSE 76; RESP 18; TEMP 36.4; O2SAT 100
[2023-02-20] MEDS: amLODIPine Besylate 5 MG TABLET PO (21:14)
[2023-02-20] MEDS: Zolpidem Tartrate 5 MG TABLET 10 MG PO (21:14)
[2023-02-20] MEDS: Atorvastatin Calcium 80 MG TABLET PO (21:14)
[2023-02-21] MEDS: vancomycin HCL 125 MG CAPSULE PO ×2 (01:18→06:38)
[2023-02-21] MEDS: Lactated Ringers 1,000 ML 100 ML IVCONT (02:00)
[2023-02-21 03:28] VITALS: BP 158/88; PULSE 77; RESP 18; TEMP 36.3; O2SAT 98
[2023-02-21 06:23] LABS: Anion Gap 15 (12-20); Blood Urea Nitrogen 31 mg/dL (9-16); Carbon Dioxide 27 mmol/L (22-29); Chloride 105 mmol/L (96-108); Creatinine Clr Calc Pharmacy 46.3; Estimated Glomerular Filt Rate 33; Glucose Random 87 mg/dL (60-115); Potassium 3.9 mmol/L (3.3-5.1); Sodium 143 mmol/L (135-145)
[2023-02-21] MEDS: Omeprazole 20 MG CAPSULE.DR PO (06:38)
[2023-02-21 07:32] VITALS: BP 148/82; PULSE 75; RESP 18; TEMP 36.7; O2SAT 98
--- NOTE | 2023-02-21 07:34 | P.CDIM_ITS ---
PROVIDER RESPONSE TEXT: To clarify, the appropriate diagnosis supported by the clinical indicators: Acute QUERY TEXT: PHYSICIAN'S DOCUMENTATION REQUEST Date of Query: 02/20/2023 02:18 PM EDT Patient Name: Jayden Pierce Admit Date: 02/17/2023 Dear Mela Bates, A review of the medical record indicates additional documentation may be needed. Please review below and update the documentation accordingly. Clinical Indicators: Per MD progress note 02/20/23: metabolic acidosis Clarify which of the following accurately represents the acuity of the metabolic acidosis. Possible options might include: Acute Acute on chronic Compensated Chronic stable condition Remission Other (explain) Clinically unable to determine (explain) Thank you, Kaci Gutierres RN Use of terms such as suspected, likely, concern for, or probable (associated with a specific diagnosi s that is being evaluated, monitored, or treated as if it exists) are acceptable and can be coded in the inpatient se tting, when documented at the time of discharge. Please use your independent medical judgment in providing your response. THIS QUERY IS PART OF THE PERMANENT MEDICAL RECORD
[2023-02-21] MEDS: Mesalamine 400 MG CAP.DRTAB. 800 MG PO (08:21)
[2023-02-21] MEDS: Lidocaine 4 % Patch ADH..PATCH 1 PATCH TRANSDERMA (08:21)
[2023-02-21] MEDS: Metoprolol Tartrate 50 MG TABLET PO (08:21)
[2023-02-21] MEDS: Heparin Sodium,Porcine 5,000 UNIT/ML VIAL 5000 UNIT SUBCUT (08:21)
[2023-02-21] MEDS: Gabapentin 100 MG CAPSULE PO (08:21)
[2023-02-21] MEDS: Cyanocobalamin (Vitamin B-12) 1,000 MCG TABLET 1000 MCG PO (08:22)
[2023-02-21] MEDS: methADONE HCl 20 MG/2 ML ORAL.CONC 44 MG PO (08:22)
--- NOTE | 2023-02-21 10:09 | P.DS_ITS ---
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 DS: Diagnosis Discharge Diagnosis (1) Diarrhea: Status: Acute (2) Acute kidney failure: Status: Acute (3) Clostridium difficile carrier: Status: Acute DS: Summary Hospital Course Hospital Course: Admission note HPI Pt is a 57-year-old male with a PMH significant for?ulcerative colitis s/p total colectomy with ileal pouch to anal anastomosis in 2007, CKD, depression, HTN, HLD, and history of opioid use disorder who presents to the ED with?three days of intractable nausea, vomiting, and diarrhea. Patient has an extensive abdominal surgical history and multiple admissions for abdominal pain in the past, though nothing for the past year. Pt states that symptoms began 3 days ago with sudden-onset on intractable nausea, vomiting, and diarrhea. No fever, some chills, but no initial abdominal pain. Vomit was clear liquid without signs of blood. Diarrhea was green-colored without evidence of blood, was experiencing 7- 10 episodes daily. Pt eventually developed diffuse abdominal pain after vomiting multiple times. Pt also complains of generalized weakness. He notes he could not eat or drink anything without it immediately going through him. Pt says he is now feeling much better, and is seen eating a sandwich and drinking juice, which he is now tolerating. No current N/V/D. Complains of lower back pain. No chest pain/pressure, palpitations.? No shortness of breath In the ED patient was afebrile but tachycardic at 109.? Labs were significant for sodium of 133, coronary acid of 16, BUN elevated 79, creatinine elevated 10.12 (up from 1.32 on 08/22/21), lipase elevated at 286.? UA negative for UTI but showed elevated hyaline casts at 11-20. CT?of the abdomen and pelvis showed no acute abdominal processes, no free air or free fluid.? Did note some degenerative disc changes with spondylolysis and and endplate sclerosis L5 through S1. Pt was treated with ketorolac, IVF, ondansetron, famotidine. Pt will be admitted to the hospital for severe acute kidney failure. Hospital course The patient was admitted to the hospital with CITLALY superimposed on CKD with metabolic acidosis with creatinine of 10. believed to be secondary to dehydration from ongoing diarrhea secondary to Rota virus infection and evidence of C.Diff carrier status. treated with IV fluids, nausea meds and oral vancomycin with improvement over the course of hispital stay as Cr improved to 2. followed by nephrology team who recommended outpatient follow up. Acute hypokalemia corrected as he was able to tolerate diet. Continue Antibiotics as prescribed drink plenty of fluids To follow up with dr George as outpatient for chronic kidney disease To repeat blood test next week Time Spent with Patient Time attestation: Total time managing care of this patient today ____ minutes. Discharge coordination time: Greater than 30 minutes Quality: Safe Use of Opioids Does Pt have an Active Cancer Diagnosis on the Problem List?: No Quality: Stroke Does the patient have a stroke diagnosis?: No Physical Exam Vital Signs: Vital Signs: Last Vital Signs Temp 98.0 F 02/21/23 07:32 Pulse 75 02/21/23 07:32 Resp 18 02/21/23 07:32 BP 148/82 H 02/21/23 07:32 Pulse Ox 98 02/21/23 07:32 O2 Del Method Room Air 02/21/23 07:32 BMI result Body Mass Index 33.7 Const: Other: Constitutional : Awake, interactive, not in distress Neck : Normal inspection, Supple Cardiovascular : RRR, no JVP, no lower extremity edema Respiratory : good bilateral air entry, no crackles, wheezes or rhonchi Gastrointestinal: soft, lax, Normal bowel sounds, Non tender Skin : Warm, Dry Neurological : Alert & oriented x3, No focal deficit , CN 2-12 within normal DS: Data Data Completed and Pending Labs on day of discharge: Laboratory Results - last 24 hr 02/21/23 05:00 Sodium 143 Potassium 3.9 Chloride 105 Carbon Dioxide 27 Anion Gap 15 BUN 31 H Creatinine 2.09 H Estim Creat Clear Calc 46.3 Estimated GFR 33 Random Glucose 87 Calcium 7.0 L Imaging US - abdomen: Radiologist's impression: ITS Impressions Abdomen/Pelvis CT 02/17/23 12:50 IMPRESSION: Total colectomy with anastomotic sites widely patent. No small bowel distention seen. No free air or free fluid seen. There are degenerative disc changes with spondylosis and endplate sclerosis L5-S1 disc level. Fleischner guidelines were followed. Discharge Plan Discharge Anticipated Discharge Date/Time: 02/21/23 09:46 Patient Disposition: Home, Self-Care Discharge Diagnosis: Acute kidney injury Referrals: [facility] [Primary Care Provider] - 1 Week Discharge Medications: New vancomycin 125 mg Capsule 125 mg PO Q6H 10 Days Qty: 40 0RF Continued felodipine 5 mg tablet extended release 24 hr 1 tab PO BEDTIME pantoprazole 40 mg tablet,delayed release (DR/EC) 1 tab PO DAILY@0630 metoprolol tartrate 50 mg tablet 1 tab PO BID zolpidem 10 mg tablet 1 tab PO BEDTIME mesalamine 400 mg capsule (with del rel tablets) 2 cap PO TID rosuvastatin 40 mg tablet 1 tab PO BEDTIME ferrous gluconate 324 mg (38 mg iron) tablet 1 tab PO QAM cyanocobalamin (vitamin B-12) 1,000 mcg tablet 1 tab PO QAM lidocaine 5 % adhesive patch,medicated 1 patch topical DAILY gabapentin 300 mg capsule 300 mg PO TID methadone 10 mg/mL Concentrate 44 mg PO DAILY hydroxyzine pamoate [Vistaril] 25 mg capsule 25 mg PO TID PRN (Reason: itching) 1 Days Qty: 3 0RF Discharge Orders: Discharge Order (Routine); Ordered 02/21/23 Ordered By: Mela Bates Diet: Advance to usual diet Activity on Discharge: As tolerated Stand Alone Forms: Patient Portal Discharge page Other Ambulatory Orders: Basic Metabolic Panel (Routine) Timeframe: 1 Week Facility: [facility] - Location: Laboratory Ordered By: Mela Bates Care Plan Goals: Read below Health Concerns: Read below Plan of Treatment: Read below Assessment: You were admitted to the hospital for evaluation of acute kidney injury and diarrhea. Found to have infection of Rota virus and evidence of Clostridum difficle carrier status. treated with IV fluids, Oral antibiotics and seen by cutter operator brick. your kidney function improved during the hospital stay as diarrhea resolved. Continue Antibiotics as prescribed drink plenty of fluids To follow up with dr George as outpatient for chronic kidney disease To repeat blood test next week
--- NOTE | 2023-02-21 10:13 | MHC.CM.PN ---
pt dcd home no skilled servcies ordered by
--- NOTE | 2023-02-21 11:46 | P.PNNP_ITS ---
Subjective Subjective Date of Service: 02/21/23 Interval history: Events noted; Creatinine improving Physical Exam Vital Signs: Vital Signs: Last Vital Signs Temp 98.0 F 02/21/23 07:32 Pulse 75 02/21/23 07:32 Resp 18 02/21/23 07:32 BP 148/82 H 02/21/23 07:32 Pulse Ox 98 02/21/23 07:32 O2 Del Method Room Air 02/21/23 07:32 BMI result Body Mass Index 33.7 Const: General: no acute distress Orientation/consciousness: patient oriented x3 Eyes: EOM: EOMs intact bilaterally Neck: Neck: Yes supple Resp: Auscultation: diminished lung sounds Cardio: Rate: regular rate GI: Palpation (GI): Soft to palpation Skin: General skin exam: no rashes or lesions noted Neuro: General: patient oriented x3 Objective Data Labs 02/19/23 05:18 02/21/23 05:00 Labs: Laboratory Results - last 24 hr 02/21/23 05:00 Sodium 143 Potassium 3.9 Chloride 105 Carbon Dioxide 27 Anion Gap 15 BUN 31 H Creatinine 2.09 H Estim Creat Clear Calc 46.3 Estimated GFR 33 Random Glucose 87 Calcium 7.0 L Procedures Date of Service Date of Service: 02/21/23 Assessment & Plan Assessment and plan (1) Acute kidney failure: Status: Acute Plan 57-year-old male with a PMH significant for?ulcerative colitis s/p total colectomy with ileal pouch to anal anastomosis in 2007, CKD3 , depression, HTN, HLD, and history of opioid use disorder who presents to the ED with?three days of intractable nausea, vomiting, and diarrhea. Renal function improving No [place] on CT CKD 3 at baseline(1.3 - 1.5) No indication for renal replacement C/w rest of current management Shall arrange office F/U when D/Eric Progress Note: Quality Stroke Does the patient have a stroke diagnosis?: No
== END 2023-02-21 12:05 | disposition home or self-care (01) | DRG 249 ==
LOC: HO.ED 13:53 → HO.EDOVER 16:01 → HO.S3 16:03
PROVIDERS: Admitting Provider Student in an Organized Health Care Education/Training Program; Emergency Provider Emergency Medicine; PCP Internal Medicine; Visit Provider Student in an Organized Health Care Education/Training Program
DX: A08.0 Rotaviral enteritis (principal); N17.9 Acute kidney failure, unspecified; E87.1 Hypo-osmolality and hyponatremia; I12.9 Hypertensive chronic kidney disease with stage 1 through stage 4 chronic kidney disease, or unspecified chronic kidney disease; F11.20 Opioid dependence, uncomplicated; N18.30 Chronic kidney disease, stage 3 unspecified; E86.0 Dehydration; E78.5 Hyperlipidemia, unspecified; E87.21 Acute metabolic acidosis; E87.6 Hypokalemia; G47.00 Insomnia, unspecified; G62.9 Polyneuropathy, unspecified; Z22.1 Carrier of other intestinal infectious diseases; Z20.822 Contact with and (suspected) exposure to COVID-19; Z91.041 Radiographic dye allergy status; Z88.8 Allergy status to other drugs, medicaments and biological substances; Z79.899 Other long term (current) drug therapy
CPT/HCPCS: 36415; 74176; 80048; 80053; 80076; 80307; 81001; 82550; 83690; 84100; 84300; 85025; 85027; 85652; 86140; 87324; 87493; 87507; 87635; 99285; J1643; J1885; J2405

== ENCOUNTER 2023-05-02 10:59 | Observation (INO) | payer MEDICAID, SELFPAY ==
[2023-05-02] VITALS (8 sets, daily range): BP systolic 131–168; BP diastolic 77–107; PULSE 57–87; RESP 16–19; TEMP 36.4–37.1; O2SAT 96–99; BMI 31.0
--- NOTE | ~2023-05-02 | CT_ITS ---
EXAMINATION: CT ABDOMEN AND PELVIS WITHOUT CONTRAST CLINICAL INFORMATION: Rule out obstruction COMPARISON: Previous CT of the abdomen and pelvis most recent February 2023 TECHNIQUE: Multidetector volumetric imaging was performed from the superior aspect of the liver through the pubic symphysis. Sagittal and coronal reformatted images were obtained on the technologist's workstation. This CT examination was performed using dose optimization techniques as appropriate, variously including the following: *Automated exposure control *Adjustment of mA and/or kV according to patient size (this includes techniques or standardized protocols for targeted exams where dose is matched to indication/reason for exam; i.e. extremities or head) *Use of iterative reconstruction technique DLP: 789 mGy-cm FINDINGS: LUNG BASES: The visualized lung bases are unremarkable. LIVER, GALLBLADDER, AND BILIARY TREE: Mild fatty infiltration of the liver.. No focal hepatic lesion or biliary ductal dilatation is present. The gallbladder is unremarkable with no evidence of radiopaque gallstones, gallbladder wall thickening, or obvious pericholecystic inflammatory changes. PANCREAS: Unremarkable. SPLEEN: Small calcification in the spleen. ADRENAL GLANDS: Unremarkable. KIDNEYS AND URETERS: The kidneys are normal in size, shape, and attenuation. No hydronephrosis, hydroureter, or calculi seen. No perinephric stranding. BLADDER: Not optimally distended. GASTROINTESTINAL TRACT: Postsurgical changes from total colectomy. There is dilatation of distal small bowel. There is fecalization and wall thickening of the distal small bowel extending to the ileoanal anastomosis. Appearances are questionable for obstruction or stricture at the ileoanal anastomosis. There are numerous small adjacent lymph nodes. There is some stranding of the adjacent fat. No free air or abscess. There is chronic stranding of the fat in the presacral space that appears unchanged. There are surgical clips suggestive of previous surgery to the more proximal small bowel. The small bowel is otherwise normal. The stomach is normal. ABDOMINAL WALL: Previous ventral hernia repair with mesh. LYMPH NODES: Small lower abdominal and pelvic retroperitoneal lymph nodes. Small lymph nodes adjacent to the VASCULAR: Unremarkable. PELVIC VISCERA: Unremarkable. OSSEOUS STRUCTURES: Degenerative changes CT/CT abdomen pelvis wo IV con IMPRESSION: Dilated stool-filled distal small bowel down to the ileoanal anastomosis questionable for obstruction at the ileoanal anastomosis. Fleischner guidelines were followed.
--- NOTE | 2023-05-02 11:01 | ED.GENADULT ---
HPI - General Adult General Chief complaint: Abdominal Pain Stated complaint: constipated Time Seen by Provider: 05/02/23 11:28 Source: patient, RN notes reviewed and old records reviewed Mode of arrival: ambulatory History of Present Illness HPI narrative: 50-year-old male with a past medical history of CKD, Crohn's s/p colectomy with reversal, HLD, HTN, presenting to the ED complaining of abdominal pain and constipation without BM x2 days. Denies fever, chills, nausea/vomiting, diarrhea, dysuria/hematuria, melena, bloody stools Onset (ago): day(s) Related Data Home Medications Medication Instructions Recorded Confirmed felodipine 5 mg tablet,extended 1 tab PO BEDTIME 03/03/21 05/02/23 release 24 hr mesalamine 400 mg capsule (with 2 cap PO TID 03/03/21 05/02/23 delayed release tablets inside) metoprolol tartrate 50 mg tablet 1 tab PO BID 03/03/21 05/02/23 pantoprazole 40 mg tablet,delayed 1 tab PO DAILY@0630 03/03/21 05/02/23 release rosuvastatin 40 mg tablet 1 tab PO BEDTIME 03/03/21 05/02/23 zolpidem 10 mg tablet 1 tab PO BEDTIME 03/03/21 05/02/23 ferrous gluconate 324 mg (38 mg 1 tab PO QAM 06/30/21 05/02/23 iron) tablet lidocaine 5 % topical patch 1 patch topical DAILY 08/20/21 05/02/23 cyanocobalamin (vitamin B-12) 1 tab PO DAILY 07/07/22 05/02/23 1,000 mcg tablet gabapentin 300 mg capsule 300 mg PO TID 02/17/23 05/02/23 methadone 10 mg/mL oral concentrate 44 mg PO DAILY 02/17/23 02/17/23 Allergies Allergy/AdvReac Type Severity Reaction Status Date / Time Iodinated Contrast Media Allergy Intermediate HIVES Verified 05/02/23 11:04 [IV CONTRAST] prednisone [PREDNISONE] Allergy Mild RASH Verified 05/02/23 11:04 Review of Systems Review of Systems: Constitutional:No Fever, No Chills, No Fatigue, No Malaise ENT/Mouth: No Ear Pain, No sore throat, No Rhinorrhea, No Swallowing Difficulty Eyes: No Eye Pain, No Swelling, No Redness, No Vision Changes Cardiovascular: No Chest Pain, No SOB, No Edema, No Palpitations Respiratory: No Cough, No Sputum, No Dyspnea Gastrointestinal: No Nausea, No Vomiting, No Diarrhea, + Constipation, + Abdominal pain, No Hematochezia, No Melena Genitourinary: No Dysuria, No Urinary Frequency, No Hematuria, No Flank Pain Musculoskeletal: No joint pain, No Myalgias, No Joint Swelling Skin: No Skin Lesions, No rash Neuro: No Weakness, No Dizziness, No Headache Yes all other systems are reviewed and are negative Constitutional: Constitutional: Reports as per [facility] Past Medical History Attestation statement: The following information was validated with the patient. Source: old records reviewed Medical History (Updated 05/02/23 @ 14:20 by Kenrick Barakat MD) CKD (chronic kidney disease) Colitis Constipation Crohn's disease of both small and large intestine HLD (hyperlipidemia) HTN (hypertension) On beta shannon at home Opioid use disorder Ulcerative colitis Surgical History H/O cervical spine surgery H/O total colectomy History of colostomy reversal History of esophagogastroduodenoscopy (EGD) Hx of colonoscopy Family History Family History Mother Stroke Diabetes mellitus HTN (hypertension), benign Hyperlipidemia Brother Diabetes mellitus Social History Social History Household Members: None Housing: Apartment Housing Other:: Rents a room Do you presently have visiting nurse or other home services: No Alcohol intake: never Patient Tobacco Use Status: Never used Tobacco Smoked in Last 30 Days: No e-Cigarette/Vaping Use: Never Used Second Hand Smoke Exposure: No Use of substances other than those prescribed or required for medical reasons: No Substance Use Type: Heroin Advance Directives: Yes Advance Directives on File: Yes Advance Directives Date on File: 03/08/21 service: No Current occupational status: unemployed Physical Exam ED Vital Signs: Vital Signs - 24 hr 05/02/23 11:01 05/02/23 11:32 05/02/23 13:21 Temperature 97.5 F 98.0 F 98.7 F Pulse Rate 71 63 87 Respiratory Rate 18 17 16 Blood Pressure 151/100 H 139/87 131/107 H Pulse Oximetry 96 97 98 Oxygen Delivery Method Room Air Room Air Room Air BMI result Body Mass Index 31.0 Const General: cooperative, healthy appearing and no acute distress Orientation/consciousness: patient oriented x3 Limitations: no limitations HENMT Head: Yes normal to inspection and Yes atraumatic Ears: hearing grossly normal bilaterally General nose exam: Normal external nose present Face and sinus: Yes normal facial exam Eyes General: appearance normal, both eyes and all related structures EOM: EOMs intact bilaterally Neck Neck: Yes normal visual inspection and Yes no meningeal signs Resp Effort & Inspection: normal respiratory effort and no respiratory distress Auscultation: clear to auscultation bilaterally Cardio Rate: regular rate Heart sounds: S1 normal heart sound present and S2 normal heart sound present GI Other: Old incisional scars noted Inspection: Yes normal to inspection and No distended Palpation (GI): Soft to palpation, nontender, no guarding and not rigid Skin Rashes: no rashes Wounds: no wounds Neuro General: patient oriented x3, tone normal and no meningeal signs Gait exam (Neuro): Normal gait present Extrem General: Yes normal to inspection Course Course Course Narrative: RME- 58-year-old male presents for evaluation of constipation. He reports that he has bowel movement 2 days. He states he is still passing gas. Reports a history of colectomy/colostomy status post reversal related to Crohn's disease. Plan for labs, CT scan the abdomen pelvis. He has IV contrast allergy so he will be scan without contrast -1255--no leukocytosis. H&H stable. Chronic CKD (better than baseline) -1346--CT abdomen pelvis wo IV con IMPRESSION: Dilated stool-filled distal small bowel down to the ileoanal anastomosis questionable for obstruction at the ileoanal anastomosis. ? Fleischner guidelines were followed. > surgery, Dr. Barakat consulted and evaluated patient, reports patient not surgical candidate at this time, recommended GI consult, he left a message with Dr. Lazcano, GI >1523--spoke with Dr. Lazcano will schedule patient for flex sigmoidoscopy tomorrow. plan to admit for further management Medications Administered Discontinued Medications Generic Name Dose Route Start Last Admin Trade Name Freq PRN Reason Stop Dose Admin Barium Sulfate 900 ml 05/02/23 12:06 05/02/23 12:06 Barium Sulfate Oral (Vanilla) 450 Ml Oral.Susp PO 05/02/23 12:07 900 ml ONCE ONE Administration Sodium Chloride 1,000 mls @ 999 mls/hr 05/02/23 13:00 05/02/23 13:07 Ns IV 05/02/23 14:00 999 mls/hr .Q1H1M MELVI Administration Morphine Sulfate 2 mg 05/02/23 13:14 05/02/23 13:56 Morphine Sulfate 2 Mg/Ml Cartridge IVPUSH 05/02/23 13:15 2 mg ONCE ONE Administration Protocol Medical Decision Making Medical Decision Making MDM Narrative: 50-year-old male with a past medical history of CKD, Crohn's s/p colectomy with reversal, HLD, HTN, presenting to the ED complaining of abdominal pain and constipation without BM x2 days. On exam initially hypertensive likely from discomfort, NAD, nontoxic appearing, abdomen soft, nontender, nondistended, old surgical scars noted without erythema. Concern for colitis vs diverticulitis vs constipation or SBO. Lower suspicion for appendicitis, or UTI or ACS Plan: Labs, UA, CT AP Please refer to course for remaining clinical decision making, interpretation of labs/imaging results, and discussions with consultants and/or family members. Differential Diagnosis Differential Diagnoses: The differential diagnosis associated with the presentation includes As above Admission/Observation Consideration of admission/observation: Escalation of care including admission/observation considered Lab Data [facility] Lab Attestation statement: I reviewed the patient's lab results. 05/02/23 11:48 05/02/23 11:48 Labs: Lab Results 05/02/23 05/02/23 05/02/23 Range/Units 11:48 11:48 11:48 WBC 6.8 (4.8-10.8) X10*3/uL RBC 4.04 L (4.60-5.80) X10*6/uL Hgb 11.7 L (14.0-18.0) g/dl Hct 36.4 L (42.0-52.0) % MCV 90.1 (80.0-98.0) fL MCH 29.0 (27.0-33.0) pg MCHC 32.1 (31.0-36.0) g/dl RDW 14.4 (11.0-16.0) % Plt Count 243 D (160-400) X10*3/uL MPV 9.4 (9.4-12.4) fL Immature Gran % (Auto) 0.3 (0.0-0.4) % Neut % (Auto) 60.2 (45-73) % Lymph % (Auto) 26.6 (20-40) % Jack % (Auto) 8.4 (2-11) % Eos % (Auto) 4.1 H (0-4) % Baso % (Auto) 0.4 (0-2) % Lymph # (Auto) 1.8 (1.2-4.9) X10*3/uL Jack # (Auto) 0.6 (0.1-1.2) X10*3/uL Eos # (Auto) 0.3 (0.0-0.4) X10*3/uL Baso # (Auto) 0.0 (0.0-0.2) X10*3/uL Abs Immat Gran (auto) 0.02 (0.00-0.03) X10*3/uL Absolute Neuts (auto) 4.1 (2.0-8.3) x10*3/uL Absolute Nucleated RBC 0.000 (0.0-0.012) X10*3/uL Nucleated RBC % (auto) 0.0 (0.0-0.2) /100WBC PT 10.5 (10.0-13.1) SEC INR 0.9 (0.9-1.1) APTT 26.6 (26.0-36.4) SEC Sodium 139 (135-145) mmol/L Potassium 4.3 (3.3-5.1) mmol/L Chloride 105 (96-108) mmol/L Carbon Dioxide 23 (22-29) mmol/L Anion Gap 15 (12-20) BUN 19 H (9-16) mg/dL Creatinine 1.65 H (0.5-1.4) mg/dL Estim Creat Clear Calc 55.5 Estimated GFR 43 Random Glucose 99 (60-115) mg/dL Calcium 9.5 D (8.4-10.2) mg/dL Total Bilirubin 0.3 (0.0-1.0) mg/dL AST 22 (5-37) U/L ALT 16 (0-40) U/L Alkaline Phosphatase 74 (39-117) U/L Total Protein 8.0 (6.5-8.0) g/dL Albumin 3.7 (3.5-5.0) g/dL Lipase 46 (8-78) U/L Blood Type Antibody Screen 05/02/23 Range/Units 11:48 WBC (4.8-10.8) X10*3/uL RBC (4.60-5.80) X10*6/uL Hgb (14.0-18.0) g/dl Hct (42.0-52.0) % MCV (80.0-98.0) fL MCH (27.0-33.0) pg MCHC (31.0-36.0) g/dl RDW (11.0-16.0) % Plt Count (160-400) X10*3/uL MPV (9.4-12.4) fL Immature Gran % (Auto) (0.0-0.4) % Neut % (Auto) (45-73) % Lymph % (Auto) (20-40) % Jack % (Auto) (2-11) % Eos % (Auto) (0-4) % Baso % (Auto) (0-2) % Lymph # (Auto) (1.2-4.9) X10*3/uL Jack # (Auto) (0.1-1.2) X10*3/uL Eos # (Auto) (0.0-0.4) X10*3/uL Baso # (Auto) (0.0-0.2) X10*3/uL Abs Immat Gran (auto) (0.00-0.03) X10*3/uL Absolute Neuts (auto) (2.0-8.3) x10*3/uL Absolute Nucleated RBC (0.0-0.012) X10*3/uL Nucleated RBC % (auto) (0.0-0.2) /100WBC PT (10.0-13.1) SEC INR (0.9-1.1) APTT (26.0-36.4) SEC Sodium (135-145) mmol/L Potassium (3.3-5.1) mmol/L Chloride (96-108) mmol/L Carbon Dioxide (22-29) mmol/L Anion Gap (12-20) BUN (9-16) mg/dL Creatinine (0.5-1.4) mg/dL Estim Creat Clear Calc Estimated GFR Random Glucose (60-115) mg/dL Calcium (8.4-10.2) mg/dL Total Bilirubin (0.0-1.0) mg/dL AST (5-37) U/L ALT (0-40) U/L Alkaline Phosphatase (39-117) U/L Total Protein (6.5-8.0) g/dL Albumin (3.5-5.0) g/dL Lipase (8-78) U/L Blood Type A Negative Antibody Screen NEGATIVE Radiology Impression Discussion of test interpretation with radiology: I have reviewed the radiologist's reading. External Record Review External record reviewed: Inpatient record, Office record, Outpatient record, Prior outpatient labs, Prior outpatient radiology, Primary care record and Outside ED record Tests considered The following testing was considered but not selected: As above Discharge Plan Discharge Clinical Impression: Small bowel obstruction Patient Disposition: Admitted As Inpatient
[2023-05-02 11:53] LABS: MANUAL DIFF FLAG NO
[2023-05-02 11:55] LABS: Basophils Percent Auto 0.4 % (0-2); Eosinophils Absolute Auto 0.3 X10*3/uL (0.0-0.4); Eosinophils Percent Auto 4.1 % (0-4); Hematocrit 36.4 % (42.0-52.0); Hemoglobin 11.7 g/dl (14.0-18.0); Imm Gran Abs Auto 0.02 X10*3/uL (0.00-0.03); Imm Gran Pct Auto 0.3 % (0.0-0.4); Lymphocytes Absolute Auto 1.8 X10*3/uL (1.2-4.9); Lymphocytes Percent Auto 26.6 % (20-40); Mean Corpuscular HGB Conc 32.1 g/dl (31.0-36.0); Mean Corpuscular Volume 90.1 fL (80.0-98.0); Mean Platelet Volume 9.4 fL (9.4-12.4); Monocytes Absolute Auto 0.6 X10*3/uL (0.1-1.2); Monocytes Percent Auto 8.4 % (2-11); Neutrophils Absolute Auto 4.1 x10*3/uL (2.0-8.3); Neutrophils Percent Auto 60.2 % (45-73); Platelet Count 243 X10*3/uL (160-400); Red Blood Count 4.04 X10*6/uL (4.60-5.80); Red Cell Distribution Width 14.4 % (11.0-16.0); White Blood Count 6.8 X10*3/uL (4.8-10.8)
[2023-05-02 12:05] LABS: INTERNATIONAL NORM RATIO 0.9 (0.9-1.1); Prothrombin Time 10.5 SEC (10.0-13.1)
[2023-05-02] MEDS: Barium Sulfate Oral (Vanilla) 450 ML ORAL.SUSP 900 ML PO (12:06)
[2023-05-02 12:07] LABS: Partial Thromboplastin Time 26.6 SEC (26.0-36.4)
[2023-05-02 12:21] LABS: Alanine Aminotransferase 16 U/L (0-40); Albumin Level 3.7 g/dL (3.5-5.0); Alkaline Phosphatase 74 U/L (39-117); Anion Gap 15 (12-20); Aspartate Amino Transferase 22 U/L (5-37); Bilirubin Total 0.3 mg/dL (0.0-1.0); Blood Urea Nitrogen 19 mg/dL (9-16); Calcium 9.5 mg/dL (8.4-10.2); Carbon Dioxide 23 mmol/L (22-29); Chloride 105 mmol/L (96-108); Creatinine Clr Calc Pharmacy 55.5; Estimated Glomerular Filt Rate 43; Glucose Random 99 mg/dL (60-115); Lipase 46 U/L (8-78); Potassium 4.3 mmol/L (3.3-5.1); Sodium 139 mmol/L (135-145)
--- NOTE | 2023-05-02 13:01 | MHC.EDTECH ---
PT REFUSED SECOND BLOOD DRAW. RN AND PROVIDER AWARE.
[2023-05-02] MEDS: 0.9 % Sodium Chloride 1,000 ML 999 ML IV (13:07)
[2023-05-02] MEDS: Morphine Sulfate 2 MG/ML CARTRIDGE IVPUSH (13:56)
--- NOTE | 2023-05-02 14:15 | PM.CNGS ---
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 Patient notes that he is passing gas and been having problems with multiple episodes of diarrhea/loose stool 6-7 times at night. His is at the bedside and he notes that even with his Asacol, he is having symptoms. His last bowel movement was yesterday and he denies any rectal bleeding. He has requested a medication to deal with his nightly frequent diarrhea and notes that he has not followed up with anyone at [place] or locally since his last hospitalization. Review of Systems Review of Systems: Yes all other systems are reviewed and are negative Constitutional: Constitutional: Reports as per [facility] Past Medical History Medical History (Updated 05/02/23 @ 14:20 by Kenrick Barakat MD) CKD (chronic kidney disease) Colitis Constipation Crohn's disease of both small and large intestine HLD (hyperlipidemia) HTN (hypertension) On beta shannon at home Opioid use disorder Ulcerative colitis Family History Family History Mother Stroke Diabetes mellitus HTN (hypertension), benign Hyperlipidemia Brother Diabetes mellitus Surgical History Surgical History H/O cervical spine surgery H/O total colectomy History of colostomy reversal History of esophagogastroduodenoscopy (EGD) Hx of colonoscopy Social History Social History Household Members: None Housing: Apartment Housing Other:: Rents a room Do you presently have visiting nurse or other home services: No Alcohol intake: never Patient Tobacco Use Status: Never used Tobacco Smoked in Last 30 Days: No e-Cigarette/Vaping Use: Never Used Second Hand Smoke Exposure: No Use of substances other than those prescribed or required for medical reasons: No Substance Use Type: Heroin Advance Directives: Yes Advance Directives on File: Yes Advance Directives Date on File: 03/08/21 service: No Current occupational status: unemployed Meds Allergies Allergy/AdvReac Type Severity Reaction Status Date / Time Iodinated Contrast Media Allergy Intermediate HIVES Verified 05/02/23 11:04 [IV CONTRAST] prednisone [PREDNISONE] Allergy Mild RASH Verified 05/02/23 11:04 Home Medications Medication Instructions Recorded Confirmed Last Taken Type felodipine 5 mg tablet,extended 1 tab PO BEDTIME 03/03/21 02/17/23 08/19/21 History release 24 hr mesalamine 400 mg capsule (with 2 cap PO TID 03/03/21 02/17/23 08/19/21 History delayed release tablets inside) metoprolol tartrate 50 mg tablet 1 tab PO BID 03/03/21 02/17/23 08/19/21 History pantoprazole 40 mg tablet,delayed 1 tab PO DAILY@0630 03/03/21 02/17/23 08/19/21 History release rosuvastatin 40 mg tablet 1 tab PO BEDTIME 03/03/21 02/17/23 08/19/21 History zolpidem 10 mg tablet 1 tab PO BEDTIME 03/03/21 02/17/23 08/19/21 History ferrous gluconate 324 mg (38 mg 1 tab PO QAM 06/30/21 02/17/23 08/19/21 History iron) tablet lidocaine 5 % topical patch 1 patch topical DAILY 08/20/21 02/17/23 08/19/21 History cyanocobalamin (vitamin B-12) 1 tab PO QAM 07/07/22 02/17/23 Unknown History 1,000 mcg tablet gabapentin 300 mg capsule 300 mg PO TID 02/17/23 02/17/23 Unknown History methadone 10 mg/mL oral concentrate 44 mg PO DAILY 02/17/23 02/17/23 02/17/23 History Physical Exam Vital Signs: Vital Signs: Last Vital Signs Temp 98.0 F 05/02/23 11:32 Pulse 63 05/02/23 11:32 Resp 17 05/02/23 11:32 BP 139/87 05/02/23 11:32 Pulse Ox 97 05/02/23 11:32 O2 Del Method Room Air 05/02/23 11:32 BMI result Body Mass Index 31.0 The patient is non-toxic & in no acute distress NC/AT, PERRLA, EOMI Mood, affect & judgment all appear appropriate Sclera anicteric conjunctiva pink and moist Oropharynx is clear with no aphthous ulcers, Mallampati class 4, mucous membranes moist Neck is supple with no masses, adenopathy or bruits Heart is regular, normal S1-S2 no rubs or murmurs Lungs are clear and equal anteriorly with no audible wheezing, rubs or dullness to percussion Abdomen is obese with no demonstrable hernias. He has vague diffuse discomfort and no HSM, rebound, rigidity, guarding, masses or bruits are present. No inguinal or incisional hernias are appreciated Rectal exam is deferred Skin has good turgor and is free of rashes Extremities free of cyanosis clubbing edema Results Labs 05/02/23 11:48 05/02/23 11:48 Labs: Abnormal lab results 05/02/23 05/02/23 Range/Units 11:48 11:48 RBC 4.04 L (4.60-5.80) X10*6/uL Hgb 11.7 L (14.0-18.0) g/dl Hct 36.4 L (42.0-52.0) % Eos % (Auto) 4.1 H (0-4) % BUN 19 H (9-16) mg/dL Creatinine 1.65 H (0.5-1.4) mg/dL Short CBC 05/02/23 Range/Units 11:48 WBC 6.8 (4.8-10.8) X10*3/uL Hgb 11.7 L (14.0-18.0) g/dl Hct 36.4 L (42.0-52.0) % Plt Count 243 D (160-400) X10*3/uL BMP 05/02/23 11:48 Sodium 139 Potassium 4.3 Chloride 105 Carbon Dioxide 23 BUN 19 H Creatinine 1.65 H Calcium 9.5 D Liver Function 05/02/23 Range/Units 11:48 Total Bilirubin 0.3 (0.0-1.0) mg/dL AST 22 (5-37) U/L ALT 16 (0-40) U/L Alkaline Phosphatase 74 (39-117) U/L Albumin 3.7 (3.5-5.0) g/dL All other labs normal. Imaging Abdomen CT scan report/results: report reviewed and image reviewed CT scan - pelvis: report reviewed and image reviewed Assessment and Plan (1) Pouchitis: Status: Acute (2) Crohn's disease of both small and large intestine: Status: Acute (3) HTN (hypertension): Status: Acute (4) Inflammation of ileoanal pouch: Status: Acute Plan Clinically, the patient states he is passing gas and has been having frequent stools. This is likely consistent with his prior history of pouchitis and I have recommended a consultation to Gastroenterology. There is no acute surgical pathology requiring exploration and antibiotics and possible medical management of this presentation is in order. Please call me if there is specific surgical questions. Will follow while he is in the hospital. Time Spent With Patient Time: Total time managing care of this patient today ____ minutes. Procedures Date of Service Date of Service: 05/02/23
--- NOTE | 2023-05-02 14:40 | PHA.MEDREC ---
Pharmacy Consult ? Medication Reconciliation Pharmacy has completed the medication reconciliation.
--- NOTE | 2023-05-02 15:25 | P.CNGI_ITS ---
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 Pt reports that for a month he has been having intermittent abdominal pain and cramping tyra shortly after a meal associated with small but frequent watery BMs up to 6-7 times a day. Night time sx +. No blood in stool that he has noted. Appetite is unchanged with this, no N/V. Yesterday, he had sudden onset of lower abdominal pain with cramping associated with nausea and constipation. States has not had any BM in a day, but is passing flatus. No vomiting, was tolerating diet before coming to ER. Had a similar admission In terms of therapy, he is in PO Asacol. 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 Has also had similar admissions in the past for partial SBO which has been man aged with conservative measures. Last endoscopic evaluation 2020: Gastritis. Friability and ulceration of pouch. Path: A.? Duodenum, biopsies:? Mild, focal active duodenitis; negative for granulomas ;? negative for dysplasia/malignancy. B.? Stomach, biopsies:? Gastric mucosa with moderate chronic, inactive gastritis;? negative for Helicobacter; negative for intestinal metaplasia/dysplasia. C.? Pouch, biopsies:? Mild active inflammation; no overt evidence of chronic changes; ?negative for granulomas; negative for dysplasia/malignancy. ???D.? Small-bowel, afferent, biopsies:? Small bowel mucosa with mild active inflammation; ?no overt evidence of chronic changes; negative for granulomas; negative dysplasia/malignancy. ???E.? Small bowel, efferent, biopsies:? Small bowel mucosa within normal limits; negative for granulomas; negative for dysplasia/malignancy. ? F.? Ileo-anal junction, biopsies:? Mild active inflammation; no overt evidence of chronic changes; negative for granulomas; negative for dysplasia/malignancy. Review of Systems Review of Systems: Yes all other systems are reviewed and are negative [facility] Past Medical History Medical History CKD (chronic kidney disease) Colitis Constipation Crohn's disease of both small and large intestine HLD (hyperlipidemia) HTN (hypertension) Opioid use disorder Ulcerative colitis Family History Family History Mother Stroke Diabetes mellitus HTN (hypertension), benign Hyperlipidemia Brother Diabetes mellitus Surgical History Surgical History H/O cervical spine surgery H/O total colectomy History of colostomy reversal History of esophagogastroduodenoscopy (EGD) Hx of colonoscopy Social History Social History Household Members: None Housing: Apartment Housing Other:: Rents a room Do you presently have visiting nurse or other home services: No Alcohol intake: never Patient Tobacco Use Status: Never used Tobacco Smoked in Last 30 Days: No e-Cigarette/Vaping Use: Never Used Second Hand Smoke Exposure: No Use of substances other than those prescribed or required for medical reasons: No Substance Use Type: Heroin Advance Directives: Yes Advance Directives on File: Yes Advance Directives Date on File: 03/08/21 service: No Current occupational status: unemployed Meds Allergies Allergy/AdvReac Type Severity Reaction Status Date / Time Iodinated Contrast Media Allergy Intermediate HIVES Verified 05/02/23 11:04 [IV CONTRAST] prednisone [PREDNISONE] Allergy Mild RASH Verified 05/02/23 11:04 Home Medications Medication Instructions Recorded Confirmed Last Taken Type felodipine 5 mg tablet,extended 1 tab PO BEDTIME 03/03/21 05/02/23 05/01/23 History release 24 hr mesalamine 400 mg capsule (with 2 cap PO TID 03/03/21 05/02/23 05/02/23 History delayed release tablets inside) metoprolol tartrate 50 mg tablet 1 tab PO BID 03/03/21 05/02/23 05/02/23 History pantoprazole 40 mg tablet,delayed 1 tab PO DAILY@0630 03/03/21 05/02/23 05/02/23 History release rosuvastatin 40 mg tablet 1 tab PO BEDTIME 03/03/21 05/02/23 05/02/23 History zolpidem 10 mg tablet 1 tab PO BEDTIME 03/03/21 05/02/23 05/01/23 History ferrous gluconate 324 mg (38 mg 1 tab PO QAM 06/30/21 05/02/23 05/02/23 History iron) tablet lidocaine 5 % topical patch 1 patch topical DAILY 08/20/21 05/02/23 05/02/23 History cyanocobalamin (vitamin B-12) 1 tab PO DAILY 07/07/22 05/02/23 05/02/23 History 1,000 mcg tablet gabapentin 300 mg capsule 300 mg PO TID 02/17/23 05/02/23 05/02/23 History methadone 10 mg/mL oral concentrate 44 mg PO DAILY 02/17/23 02/17/23 05/02/23 History Physical Exam Vital Signs: Vital Signs: Last Vital Signs Temp 97.6 F 05/02/23 15:21 Pulse 67 05/02/23 15:21 Resp 17 05/02/23 15:21 BP 146/81 H 05/02/23 15:21 Pulse Ox 98 05/02/23 15:21 O2 Del Method Room Air 05/02/23 15:21 BMI result Body Mass Index 31.0 Gen appear: No acute distress, nontoxic appearing HEENT: no icterus, no cervical lymphadenopathy Chest: No overt resp distress CVS: S1/S2, regular Abd: soft, tender, distended, bowel sounds present Psych: Stable affect, answering questions appropriately Neuro: A/Ox3 noted to move all extremities spontaneously Ext: no peripheral edema Results Labs 05/02/23 11:48 05/02/23 11:48 Labs: Short CBC 05/02/23 Range/Units 11:48 WBC 6.8 (4.8-10.8) X10*3/uL Hgb 11.7 L (14.0-18.0) g/dl Hct 36.4 L (42.0-52.0) % Plt Count 243 D (160-400) X10*3/uL BMP 05/02/23 11:48 Sodium 139 Potassium 4.3 Chloride 105 Carbon Dioxide 23 BUN 19 H Creatinine 1.65 H Calcium 9.5 D Liver Function 05/02/23 Range/Units 11:48 Total Bilirubin 0.3 (0.0-1.0) mg/dL AST 22 (5-37) U/L ALT 16 (0-40) U/L Alkaline Phosphatase 74 (39-117) U/L Albumin 3.7 (3.5-5.0) g/dL Imaging CT scan - abdomen: Radiologist's impression: Postsurgical changes from total colectomy. There is dilatation of distal small bowel. There is fecalization and wall thickening of the distal small bowel extending to the ileoanal anastomosis. Appearances are questionable for obstruction or stricture at the ileoanal anastomosis. There are numerous small adjacent lymph nodes. There is some s tranding of the adjacent fat. No free air or abscess. There is chronic stranding of the fat in the presacral space that appears unchanged. There are surgical clips suggestive of previous surgery to the more proximal small bowel. The small bowel is otherwise normal. The stomach is normal. Assessment and Plan (1) Pouchitis: Status: Acute (2) Small bowel obstruction: Status: Acute (3) Crohn's disease: Qualifiers: Digestive disease complication type: without complication Gastrointestinal tract location: unspecified location Qualified Code(s): K50.90 - Crohn's disease, unspecified, without complications Status: Inactive Plan Presentation consistent with partial SBO due to inflammation of the pouch tyra near the ileoanal anastomosis. Ddx includes idiopathic pouchitis vs cuffitis vs crohns of pouch (although despite reported hx of crohns no chronic inflammation noted on small bowel bx on pouchoscopy 2019.) and ischemic pouchitis tyra as findings most prominent at the site of ileoanal anastomosis. Plan: - Diagnostic flex sig tomorrow - can receive one tap water enema if pt able to tolerate prior to procedure (avoid fleets due to kidney injury) - Start Cipro 500mg BID - Start VSL enemas - again if able to tolerate - Keep NPO - Low threshold to place NGT if pt develops vomiting. - Check CRP. - If pt passes BM, pls send for fecal calpro, C Diff and GI panel Thank you for the consultation. Please do not hesitate to contact for any questi ons or concerns. Time Spent With Patient Time: Total time managing care of this patient today ____ minutes. Procedures Date of Service Date of Service: 05/02/23
--- NOTE | 2023-05-02 15:42 | P.HPHOSP_ITS ---
History of Present Illness Date of Service: 05/02/23 Chief Complaint: Abdominal pain Review of Systems Review of Systems: Denies any recent fever chills or decrease in appetite respiratory denies any shortness of breath coverage production cardiovascular is adjustment of any PND or edema gastrointestinal denies any dysphagia abdominal pain nausea vomiting or diarrhea genitourinary denies any dysuria frequency or hematuria musculoskeletal denies any joint pain or swelling neuropsych denies any weakness or seizures all other systems reviewed are negative [facility] Medical History (Updated 05/02/23 @ 15:43 by Rebecca Houston NP) CKD (chronic kidney disease) Colitis Constipation Crohn's disease of both small and large intestine HLD (hyperlipidemia) HTN (hypertension) Opioid use disorder Ulcerative colitis Family History Mother Stroke Diabetes mellitus HTN (hypertension), benign Hyperlipidemia Brother Diabetes mellitus Surgical History H/O cervical spine surgery H/O total colectomy History of colostomy reversal History of esophagogastroduodenoscopy (EGD) Hx of colonoscopy Social History Household Members: None Housing: Apartment Housing Other:: Rents a room Do you presently have visiting nurse or other home services: No Alcohol intake: never Patient Tobacco Use Status: Never used Tobacco Smoked in Last 30 Days: No e-Cigarette/Vaping Use: Never Used Second Hand Smoke Exposure: No Use of substances other than those prescribed or required for medical reasons: No Substance Use Type: Heroin Advance Directives: Yes Advance Directives on File: Yes Advance Directives Date on File: 03/08/21 service: No Current occupational status: unemployed Meds Allergies Allergy/AdvReac Type Severity Reaction Status Date / Time Iodinated Contrast Media Allergy Intermediate HIVES Verified 05/02/23 11:04 [IV CONTRAST] prednisone [PREDNISONE] Allergy Mild RASH Verified 05/02/23 11:04 Home Medications Medication Instructions Recorded Confirmed Last Taken Type felodipine 5 mg tablet,extended 1 tab PO BEDTIME 03/03/21 05/02/23 05/01/23 History release 24 hr mesalamine 400 mg capsule (with 2 cap PO TID 03/03/21 05/02/23 05/02/23 History delayed release tablets inside) metoprolol tartrate 50 mg tablet 1 tab PO BID 03/03/21 05/02/23 05/02/23 History pantoprazole 40 mg tablet,delayed 1 tab PO DAILY@0630 03/03/21 05/02/23 05/02/23 History release rosuvastatin 40 mg tablet 1 tab PO BEDTIME 03/03/21 05/02/23 05/02/23 History zolpidem 10 mg tablet 1 tab PO BEDTIME 03/03/21 05/02/23 05/01/23 History ferrous gluconate 324 mg (38 mg 1 tab PO QAM 06/30/21 05/02/23 05/02/23 History iron) tablet lidocaine 5 % topical patch 1 patch topical DAILY 08/20/21 05/02/23 05/02/23 History cyanocobalamin (vitamin B-12) 1 tab PO DAILY 07/07/22 05/02/23 05/02/23 History 1,000 mcg tablet gabapentin 300 mg capsule 300 mg PO TID 02/17/23 05/02/23 05/02/23 History methadone 10 mg/mL oral concentrate 44 mg PO DAILY 02/17/23 02/17/23 05/02/23 History Physical Exam Vital Signs and Narrative: Vital Signs: Last Vital Signs Temp 97.6 F 05/02/23 15:21 Pulse 67 05/02/23 15:21 Resp 17 05/02/23 15:21 BP 146/81 H 05/02/23 15:21 Pulse Ox 98 05/02/23 15:21 O2 Del Method Room Air 05/02/23 15:21 BMI result Body Mass Index 31.0 Appearing in no acute distress head is normocephalic atraumatic eyes pupils are PERRLA sclera is anicteric mouth throat mucous membranes are intact and moist neck is supple no lymphadenopathy, no JVD noted lung sounds are clear to auscultation heart regular rate rhythm, clear S1, S2 positive bowel sounds, abdomen is soft, nontender neuro patient is alert x3, no focal deficits Results Labs 05/02/23 11:48 05/02/23 11:48 Labs: Laboratory Results - last 24 hr 05/02/23 05/02/23 05/02/23 11:48 11:48 11:48 MCV 90.1 MCH 29.0 MCHC 32.1 RDW 14.4 Plt Count 243 D MPV 9.4 Immature Gran % (Auto) 0.3 Neut % (Auto) 60.2 Lymph % (Auto) 26.6 [place] % (Auto) 8.4 Eos % (Auto) 4.1 H Baso % (Auto) 0.4 Lymph # (Auto) 1.8 [place] # (Auto) 0.6 Eos # (Auto) 0.3 Baso # (Auto) 0.0 Abs Immat Gran (auto) 0.02 Absolute Neuts (auto) 4.1 Absolute Nucleated RBC 0.000 Nucleated RBC % (auto) 0.0 PT 10.5 INR 0.9 APTT 26.6 Anion Gap 15 Estim Creat Clear Calc 55.5 Estimated GFR 43 Random Glucose 99 Calcium 9.5 D Total Bilirubin 0.3 AST 22 ALT 16 Alkaline Phosphatase 74 Total Protein 8.0 Albumin 3.7 Lipase 46 Blood Type Antibody Screen 05/02/23 11:48 MCV MCH MCHC RDW Plt Count MPV Immature Gran % (Auto) Neut % (Auto) Lymph % (Auto) [place] % (Auto) Eos % (Auto) Baso % (Auto) Lymph # (Auto) [place] # (Auto) Eos # (Auto) Baso # (Auto) Abs Immat Gran (auto) Absolute Neuts (auto) Absolute Nucleated RBC Nucleated RBC % (auto) PT INR APTT Anion Gap Estim Creat Clear Calc Estimated GFR Random Glucose Calcium Total Bilirubin AST ALT Alkaline Phosphatase Total Protein Albumin Lipase Blood Type A Negative Antibody Screen NEGATIVE Imaging Radiologist's Impressions: Impressions Abdomen/Pelvis CT 05/02/23 12:10 IMPRESSION: Dilated stool-filled distal small bowel down to the ileoanal anastomosis questionable for obstruction at the ileoanal anastomosis. Fleischner guidelines were followed. Assessment and Plan Plan 58 year old man admitted with possible SBO SBO seen and evaluated by general surgery, not thought to be SBO Plan for flex sig in the am as per GI NPO for now pain management IV fluids PPI HTN Stable BP continue DVT prophylaxis with Attending Dr. Bates Full code Time Spent With Patient Time: Total time managing care of this patient today ____ minutes.
--- NOTE | 2023-05-02 15:59 | PM.IMHP ---
History of Present Illness Date of Service: 05/02/23 Chief Complaint: Abd pain a 57-year-old male with a PMH significant for?ulcerative colitis s/p total colectomy with ileal pouch to anal anastomosis in 2007, CKD, depression, HTN, HLD, and history of opioid use disorder on methadone who presents to the ED with?three days of abdominal pain. he reports doing fairly well until 3 days ago when he started to have abdominal pain, sharp, mid-abdomen, not radiating, related with nausea but no vomiting or diarrhea. No fever, chills or urinary symptoms. In ED CT scan was consistent with possible obstruction of small bowel. evaluated by surgeon who felt it is more of pouchitis than actual obstruction. Admitted for observation and GI eval. Review of Systems Review of Systems: No fever, chills or weakness No chest pain, palpitation No shortness of breath or coughing having abdominal pain, no nausea or vomiting No urinary symptoms No any rash or wounds PMFSH Medical History CKD (chronic kidney disease) Colitis Constipation Crohn's disease of both small and large intestine HLD (hyperlipidemia) HTN (hypertension) Opioid use disorder Ulcerative colitis Family History Mother Stroke Diabetes mellitus HTN (hypertension), benign Hyperlipidemia Brother Diabetes mellitus Surgical History H/O cervical spine surgery H/O total colectomy History of colostomy reversal History of esophagogastroduodenoscopy (EGD) Hx of colonoscopy Social History Household Members: None Housing: Apartment Housing Other:: Rents a room Do you presently have visiting nurse or other home services: No Alcohol intake: never Patient Tobacco Use Status: Never used Tobacco Smoked in Last 30 Days: No e-Cigarette/Vaping Use: Never Used Second Hand Smoke Exposure: No Use of substances other than those prescribed or required for medical reasons: No Substance Use Type: Heroin Advance Directives: Yes Advance Directives on File: Yes Advance Directives Date on File: 03/08/21 service: No Current occupational status: unemployed Meds Allergies Allergy/AdvReac Type Severity Reaction Status Date / Time Iodinated Contrast Media Allergy Intermediate HIVES Verified 05/02/23 11:04 [IV CONTRAST] prednisone [PREDNISONE] Allergy Mild RASH Verified 05/02/23 11:04 Active Medications: Current Medications Acetaminophen (Acetaminophen 325 Mg Tablet) 650 mg PO Q6H PRN PRN Reason: Pain, Mild (Pain Scale 1-3) Enoxaparin Sodium (Enoxaparin Sodium 40 Mg/0.4 Ml Syringe) 40 mg SUBCUT Q24H [facility] Gabapentin (Gabapentin 300 Mg Capsule) 300 mg PO TID [facility] Sodium Chloride (Ns) 1,000 mls @ 100 mls/hr IVCONT .Q10H [facility] Mesalamine (Mesalamine 400 Mg Cap.Drtab.) 800 mg PO TID [facility] Metoprolol Tartrate (Metoprolol Tartrate 50 Mg Tablet) 50 mg PO BID [facility]; Protocol Morphine Sulfate (Morphine Sulfate 4 Mg/Ml Cartridge) 2 mg IVPUSH Q4H PRN; Protocol PRN Reason: Pain, Severe (Pain Scale 7-10) Non-Formulary Medication (Felodipine) 1 tab PO BEDTIME [facility] Non-Formulary Medication (Lidocaine) 1 patch TOPICAL DAILY [facility] Non-Formulary Medication (Pantoprazole) 1 tab PO DAILY@0630 [facility] Non-Formulary Medication (Rosuvastatin) 1 tab PO BEDTIME [facility] Ondansetron HCl (Ondansetron Hcl 4 Mg/2 Ml Vial) 4 mg IVPUSH Q8H PRN PRN Reason: Nausea and Vomiting Sodium Chloride (0.9 % Sodium Chloride Flush 3 Ml Syringe) [facility] Zolpidem Tartrate (Zolpidem Tartrate 5 Mg Tablet) 10 mg PO BEDTIME [facility] Home Medications Medication Instructions Recorded Confirmed Last Taken Type felodipine 5 mg tablet,extended 1 tab PO BEDTIME 03/03/21 05/02/23 05/01/23 History release 24 hr mesalamine 400 mg capsule (with 2 cap PO TID 03/03/21 05/02/23 05/02/23 History delayed release tablets inside) metoprolol tartrate 50 mg tablet 1 tab PO BID 03/03/21 05/02/23 05/02/23 History pantoprazole 40 mg tablet,delayed 1 tab PO DAILY@0630 03/03/21 05/02/2305/02/23 History release rosuvastatin 40 mg tablet 1 tab PO BEDTIME 03/03/21 05/02/23 05/02/23 History zolpidem 10 mg tablet 1 tab PO BEDTIME 03/03/21 05/02/23 05/01/23 History ferrous gluconate 324 mg (38 mg 1 tab PO QAM 06/30/21 05/02/23 05/02/23 History iron) tablet lidocaine 5 % topical patch 1 patch topical DAILY 08/20/21 05/02/23 05/02/23 History cyanocobalamin (vitamin B-12) 1 tab PO DAILY 07/07/22 05/02/23 05/02/23 History 1,000 mcg tablet gabapentin 300 mg capsule 300 mg PO TID 02/17/23 05/02/23 05/02/23 History methadone 10 mg/mL oral concentrate 44 mg PO DAILY 02/17/23 02/17/23 05/02/23 History Physical Exam Vital Signs and Narrative: Vital Signs: Last Vital Signs Temp 97.6 F 05/02/23 15:21 Pulse 67 05/02/23 15:21 Resp 17 05/02/23 15:21 BP 146/81 H 05/02/23 15:21 Pulse Ox 98 05/02/23 15:21 O2 Del Method Room Air 05/02/23 15:21 BMI result Body Mass Index 31.0 Const: Other: Constitutional : Awake, interactive, not in distress Neck : Normal inspection, Supple Cardiovascular : RRR, no JVP, no lower extremity edema Respiratory : good bilateral air entry, no crackles, wheezes or rhonchi Gastrointestinal: soft, lax, Normal bowel sounds, mild gen abd tenderness, no surgical signs Skin : Warm, Dry Neurological : Alert & oriented x3, No focal deficit Results Labs 05/02/23 11:48 05/02/23 11:48 Labs: Laboratory Results - last 24 hr 05/02/23 05/02/23 05/02/23 11:48 11:48 11:48 MCV 90.1 MCH 29.0 MCHC 32.1 RDW 14.4 Plt Count 243 D MPV 9.4 Immature Gran % (Auto) 0.3 Neut % (Auto) 60.2 Lymph % (Auto) 26.6 [place] % (Auto) 8.4 Eos % (Auto) 4.1 H Baso % (Auto) 0.4 Lymph # (Auto) 1.8 [place] # (Auto) 0.6 Eos # (Auto) 0.3 Baso # (Auto) 0.0 Abs Immat Gran (auto) 0.02 Absolute Neuts (auto) 4.1 Absolute Nucleated RBC 0.000 Nucleated RBC % (auto) 0.0 PT 10.5 INR 0.9 APTT 26.6 Anion Gap 15 Estim Creat Clear Calc 55.5 Estimated GFR 43 Random Glucose 99 Calcium 9.5 D Total Bilirubin 0.3 AST 22 ALT 16 Alkaline Phosphatase 74 Total Protein 8.0 Albumin 3.7 Lipase 46 Blood Type Antibody Screen 05/02/23 11:48 MCV MCH MCHC RDW Plt Count MPV Immature Gran % (Auto) Neut % (Auto) Lymph % (Auto) [place] % (Auto) Eos % (Auto) Baso % (Auto) Lymph # (Auto) [place] # (Auto) Eos # (Auto) Baso # (Auto) Abs Immat Gran (auto) Absolute Neuts (auto) Absolute Nucleated RBC Nucleated RBC % (auto) PT INR APTT Anion Gap Estim Creat Clear Calc Estimated GFR Random Glucose Calcium Total Bilirubin AST ALT Alkaline Phosphatase Total Protein Albumin Lipase Blood Type A Negative Antibody Screen NEGATIVE Imaging Radiologist's Impressions: Impressions Abdomen/Pelvis CT 05/02/23 12:10 IMPRESSION: Dilated stool-filled distal small bowel down to the ileoanal anastomosis questionable for obstruction at the ileoanal anastomosis. Fleischner guidelines were followed. Assessment and Plan (1) Pouchitis: Status: Acute Plan a 58-year-old male with a PMH significant for?ulcerative colitis s/p total colectomy with ileal pouch to anal anastomosis in 2007, CKD, depression, HTN, HLD, and history of opioid use disorder on methadone who presents to the ED with?three days of abdominal pain. Abdominal pain 2/[address] scan reporting possible small bowel obstruction No surgical cause per surgery team, likely pouchitis Keep NPO Gentle IVF Zofran PRN GI eval advance diet as tolerated C.Diff carrier no evidence of colitis Peripheral neuropathy gabapentin tid Insomnia Continue zolpidem HLD Continue statin HTN Continue felodipine, metoprolol Full Code DVT Prophylaxis: Lovenox Time Spent With Patient Time: Total time managing care of this patient today ____ minutes. Quality Stroke Does the patient have a stroke diagnosis?: No VTE Prior VTE?: No VTE Risk Level:: Medical - moderate - high VTE Device Contraindication: Treatment Not Indicated VTE Drug Contraindication: N/A - Med Ordered
[2023-05-02] MEDS: Acetaminophen 325 MG TABLET 650 MG PO (16:51)
[2023-05-02] MEDS: Morphine Sulfate 4 MG/ML CARTRIDGE 2 MG IVPUSH ×2 (16:51→22:44)
[2023-05-02] MEDS: 0.9 % Sodium Chloride Flush 3 ML SYRINGE IVFLUSH (16:52)
[2023-05-02] MEDS: 0.9 % Sodium Chloride 1,000 ML 100 ML IVCONT (16:52)
[2023-05-02] MEDS: Enoxaparin Sodium 30 MG/0.3 ML SYRINGE SUBCUT (17:06)
--- NOTE | 2023-05-02 18:15 | PC.NURSE ---
rn to rn report given to negrito. pt aware of plan of care for admission
[2023-05-02] MEDS: Zolpidem Tartrate 5 MG TABLET PO (20:28)
[2023-05-02] MEDS: amLODIPine Besylate 5 MG TABLET PO (20:28)
[2023-05-02] MEDS: Atorvastatin Calcium 80 MG TABLET PO (20:30)
[2023-05-02] MEDS: Mesalamine 400 MG CAP.DRTAB. 800 MG PO (20:30)
[2023-05-02] MEDS: Gabapentin 300 MG CAPSULE PO (20:32)
[2023-05-02] MEDS: Metoprolol Tartrate 50 MG TABLET PO (20:41)
[2023-05-03] VITALS (11 sets, daily range): BP systolic 130–169; BP diastolic 79–96; PULSE 60–74; RESP 16–18; TEMP 36.1–36.9; O2SAT 94–100
--- NOTE | 2023-05-03 | ECG_ITS ---
Test Reason : qtc check Blood Pressure : / mmHG Vent. Rate : 065 BPM Atrial Rate : 065 BPM P-R Int : 206 ms QRS Dur : 092 ms QT Int : 442 ms P-R-T Axes : 037 -30 005 degrees QTc Int : 459 ms Normal sinus rhythm Left axis deviation Moderate voltage criteria for LVH, may be normal variant ( R in aVL , Noble product ) Abnormal ECG When compared with ECG of 09-MAY-2022 15:27, Vent. rate has decreased BY 35 BPM Referred By: Mela Bates Electronically Signed By:ABDI PAULA
[2023-05-03 04:04] LABS: Appearance Urine Clear; Color Urine Yellow; Glucose Urine UA Negative (Negative); Leukocyte Esterase Urine Moderate (2+) (Negative); Nitrite Urine Negative (Negative); UMIC TRIGGER UACC YES; Urine Blood Negative (Negative); Urine Ketones Negative (Negative); Urine Protein Trace mg/dL (Neg-Trace)
[2023-05-03 04:09] LABS: Bacteria Urine None Seen (None Seen); Hyaline Casts Urine 0-2 /LPF (0-2); RBC Urine 0-2 /HPF (0-2); Squamous Epithelial Cell Urine 0-2 /HPF (0-2); UACC Culture Trigger YES
[2023-05-03] MEDS: 0.9 % Sodium Chloride 1,000 ML 100 ML IVCONT ×2 (05:35→17:54)
[2023-05-03] MEDS: Omeprazole 20 MG CAPSULE.DR PO (05:37)
[2023-05-03 05:50] LABS: Hematocrit 35.6 % (42.0-52.0); Hemoglobin 11.6 g/dl (14.0-18.0); Mean Corpuscular HGB Conc 32.6 g/dl (31.0-36.0); Mean Corpuscular Hemoglobin 29.6 pg (27.0-33.0); Mean Corpuscular Volume 90.8 fL (80.0-98.0); Mean Platelet Volume 9.5 fL (9.4-12.4); Platelet Count 228 X10*3/uL (160-400); Red Blood Count 3.92 X10*6/uL (4.60-5.80); Red Cell Distribution Width 14.6 % (11.0-16.0); White Blood Count 5.8 X10*3/uL (4.8-10.8)
[2023-05-03 06:07] LABS: Anion Gap 13 (12-20); Blood Urea Nitrogen 19 mg/dL (9-16); Calcium 9.3 mg/dL (8.4-10.2); Carbon Dioxide 25 mmol/L (22-29); Chloride 105 mmol/L (96-108); Creatinine Clr Calc Pharmacy 59.9; Estimated Glomerular Filt Rate 47; Glucose Random 77 mg/dL (60-115); Potassium 4.3 mmol/L (3.3-5.1); Sodium 139 mmol/L (135-145)
--- NOTE | 2023-05-03 07:54 | P.PNGS_ITS ---
Subjective Subjective Date of Service: 05/03/23 Patient reports: no new complaints and feels better Interval history: The patient reports that he has had liquidy bowel movements overnight and denies any significant pain. He otherwise denies chest pain, difficulty breathing or shortness of breath. We discussed current treatment plan including a flexible sigmoidoscopy to assess his pouch and evidence of ongoing Crohn's that may require medication change. We also discussed surgical options including diversion ileostomy which he vehemently refused stating that he does not want to wear a bag again. He has not seen a colorectal surgeon who did his pouch proceed, but if his desire to avoid an ileostomy persists, the other option is for him to talk to a colorectal surgeon about a low stricturoplasty, which is beyond my skill level. Physical Exam Vital Signs: Vital Signs: Last Vital Signs Temp 98.4 F 05/03/23 07:26 Pulse 74 05/03/23 07:26 Resp 18 05/03/23 07:26 BP 151/96 H 05/03/23 07:26 Pulse Ox 97 05/03/23 07:26 O2 Del Method Room Air 05/03/23 07:26 BMI result Body Mass Index 31.0 The patient appears comfortable He is in no acute respiratory distress His abdomen remains obese and soft with no significant tenderness or peritoneal sign Objective Data Active Medications Acetaminophen (Acetaminophen 325 Mg Tablet) 650 mg PO Q6H PRN PRN Reason: Pain, Mild (Pain Scale 1-3) Last Admin: 05/02/23 16:51 Dose: 650 mg Documented By: JADA Amlodipine Besylate (Amlodipine Besylate 5 Mg Tablet) 5 mg PO BEDTIME [facility] Last Admin: 05/02/23 20:28 Dose: 5 mg Documented By: HIWOT Atorvastatin Calcium (Atorvastatin Calcium 80 Mg Tablet) 80 mg PO BEDTIME [facility] Last Admin: 05/02/23 20:30 Dose: 80 mg Documented By: HIWOT Enoxaparin Sodium (Enoxaparin Sodium 30 Mg/0.3 Ml Syringe) 30 mg SUBCUT Q24H [facility] Last Admin: 05/02/23 17:06 Dose: 30 mg Documented By: JADA Gabapentin (Gabapentin 300 Mg Capsule) 300 mg PO TID [facility] Last Admin: 05/02/23 20:32 Dose: 300 mg Documented By: HIWOT Sodium Chloride (Ns) 1,000 mls @ 100 mls/hr IVCONT .Q10H [facility] Last Admin: 05/03/23 05:35 Dose: 100 mls/hr Documented By: HIWOT Levofloxacin (Levaquin) 500 mg in 100 mls @ 100 mls/hr IV Q24H [facility] Lidocaine (Lidocaine 4 % Patch Adh..Patch) 1 patch TRANSDERMA DAILY [facility] Mesalamine (Mesalamine 400 Mg Cap.Drtab.) 800 mg PO TID [facility] Last Admin: 05/02/23 20:30 Dose: 800 mg Documented By: HIWOT Metoprolol Tartrate (Metoprolol Tartrate 50 Mg Tablet) 50 mg PO BID [facility]; Protocol Last Admin: 05/02/23 20:41 Dose: 50 mg Documented By: HIWOT Morphine Sulfate (Morphine Sulfate 4 Mg/Ml Cartridge) 2 mg IVPUSH Q4H PRN; Protocol PRN Reason: Pain, Severe (Pain Scale 7-10) Last Admin: 05/02/23 22:44 Dose: 2 mg Documented By: HIWOT Omeprazole (Omeprazole 20 Mg Capsule.Dr) 20 mg PO DAILY@0630 [facility] Last Admin: 05/03/23 05:37 Dose: 20 mg Documented By: HIWOT Ondansetron HCl (Ondansetron Hcl 4 Mg/2 Ml Vial) 4 mg IVPUSH Q8H PRN PRN Reason: Nausea and Vomiting Sodium Chloride (0.9 % Sodium Chloride Flush 3 Ml Syringe) 3 ml IVFLUSH QSHIFT [facility] Last Admin: 05/02/23 23:21 Dose: Not Given Documented By: HIWOT Non-Admin Reason: IV Running Zolpidem Tartrate (Zolpidem Tartrate 5 Mg Tablet) 5 mg PO BEDTIME [facility] Last Admin: 05/02/23 20:28 Dose: 5 mg Documented By: HIWOT Labs 05/03/23 05:34 05/03/23 05:34 Labs: Laboratory Results - last 24 hr 05/02/23 05/02/23 05/02/23 11:48 11:48 11:48 MCV 90.1 MCH 29.0 MCHC 32.1 RDW 14.4 Plt Count 243 D MPV 9.4 Immature Gran % (Auto) 0.3 Neut % (Auto) 60.2 Lymph % (Auto) 26.6 [place] % (Auto) 8.4 Eos % (Auto) 4.1 H Baso % (Auto) 0.4 Lymph # (Auto) 1.8 [place] # (Auto) 0.6 Eos # (Auto) 0.3 Baso # (Auto) 0.0 Abs Immat Gran (auto) 0.02 Absolute Neuts (auto) 4.1 Absolute Nucleated RBC 0.000 Nucleated RBC % (auto) 0.0 PT 10.5 INR 0.9 APTT 26.6 Anion Gap 15 Estim Creat Clear Calc 55.5 Estimated GFR 43 Random Glucose 99 Calcium 9.5 D Total Bilirubin 0.3 AST 22 ALT 16 Alkaline Phosphatase 74 Total Protein 8.0 Albumin 3.7 Lipase 46 Urine Color Urine Appearance Urine pH Ur Specific [place] Urine Protein Urine Glucose (UA) Urine Ketones Urine Blood Urine Nitrite Ur Leukocyte Esterase Urine RBC Urine WBC Urine WBC Clumps Ur Squamous Epith Cells Ur Transition Epith Cell Ur Renal Epithelial Cell Calcium Oxalate Crystal Leucine Crystals Cystine Crystals Tyrosine Crystals Other Crystals Urine Bacteria Urine Parasites Bilirubin Casts Epithelial Casts Fatty Casts Hyaline Casts Granular Casts Waxy Casts Broad Casts RBC Casts WBC Casts Other Casts Urine Trichomonas Urine Yeast Blood Type Antibody Screen 05/02/23 05/03/23 05/03/23 11:48 03:46 03:46 MCV MCH MCHC RDW Plt Count MPV Immature Gran % (Auto) Neut % (Auto) Lymph % (Auto) [place] % (Auto) Eos % (Auto) Baso % (Auto) Lymph # (Auto) [place] # (Auto) Eos # (Auto) Baso # (Auto) Abs Immat Gran (auto) Absolute Neuts (auto) Absolute Nucleated RBC Nucleated RBC % (auto) PT INR APTT Anion Gap Estim Creat Clear Calc Estimated GFR Random Glucose Calcium Total Bilirubin AST ALT Alkaline Phosphatase Total Protein Albumin Lipase Urine Color Yellow Cancelled Urine Appearance Clear Cancelled Urine pH 6.0 Cancelled Ur Specific [place] 1.020 Cancelled Urine Protein Trace Cancelled Urine Glucose (UA) Negative Cancelled Urine Ketones Negative Cancelled Urine Blood Negative Cancelled Urine Nitrite Negative Cancelled Ur Leukocyte Esterase Moderate (2+) H Cancelled Urine RBC 0-2 Cancelled Urine WBC 11-20 H Cancelled Urine WBC Clumps Cancelled Ur Squamous Epith Cells 0-2 Cancelled Ur Transition Epith Cell Cancelled Ur Renal Epithelial Cell Cancelled Calcium Oxalate Crystal Cancelled Leucine Crystals Cancelled Cystine Crystals Cancelled Tyrosine Crystals Cancelled Other Crystals Cancelled Urine Bacteria None Seen Cancelled Urine Parasites Cancelled Bilirubin Casts Cancelled Epithelial Casts Cancelled Fatty Casts Cancelled Hyaline Casts 0-2 Cancelled Granular Casts Cancelled Waxy Casts Cancelled Broad Casts Cancelled RBC Casts Cancelled WBC Casts Cancelled Other Casts Cancelled Urine Trichomonas Cancelled Urine Yeast Cancelled Blood Type A Negative Antibody Screen NEGATIVE 05/03/23 05/03/23 05:34 05:34 MCV 90.8 MCH 29.6 MCHC 32.6 RDW 14.6 Plt Count 228 MPV 9.5 Immature Gran % (Auto) Neut % (Auto) Lymph % (Auto) [place] % (Auto) Eos % (Auto) Baso % (Auto) Lymph # (Auto) [place] # (Auto) Eos # (Auto) Baso # (Auto) Abs Immat Gran (auto) Absolute Neuts (auto) Absolute Nucleated RBC 0.000 Nucleated RBC % (auto) 0.0 PT INR APTT Anion Gap 13 Estim Creat Clear Calc 59.9 Estimated GFR 47 Random Glucose 77 Calcium 9.3 Total Bilirubin AST ALT Alkaline Phosphatase Total Protein Albumin Lipase Urine Color Urine Appearance Urine pH Ur Specific [place] Urine Protein Urine Glucose (UA) Urine Ketones Urine Blood Urine Nitrite Ur Leukocyte Esterase Urine RBC Urine WBC Urine WBC Clumps Ur Squamous Epith Cells Ur Transition Epith Cell Ur Renal Epithelial Cell Calcium Oxalate Crystal Leucine Crystals Cystine Crystals Tyrosine Crystals Other Crystals Urine Bacteria Urine Parasites Bilirubin Casts Epithelial Casts Fatty Casts Hyaline Casts Granular Casts Waxy Casts Broad Casts RBC Casts WBC Casts Other Casts Urine Trichomonas Urine Yeast Blood Type Antibody Screen Procedures Date of Service Date of Service: 05/03/23 Progress Note: A&P Assessment and plan (1) Crohn's disease of both small and large intestine: Status: Acute (2) Pouchitis: Status: Acute (3) Inflammation of ileoanal pouch: Status: Acute (4) HTN (hypertension): Status: Acute Plan Await results of endoscopy today. Continue medical management. The patient is not interested in discussing surgical options. Time Spent With Patient Time: Total time managing care of this patient today ____ minutes. Quality Stroke Does the patient have a stroke diagnosis?: No VTE Prior VTE?: No VTE Risk Level:: Medical - moderate - high VTE Device Contraindication: Treatment Not Indicated VTE Drug Contraindication: N/A - Med Ordered
[2023-05-03] MEDS: levoFLOXacin/D5W 500 MG/100 ML PIGGYBACK 100 MG IV (08:05)
[2023-05-03] MEDS: Lidocaine 4 % Patch ADH..PATCH 1 PATCH TRANSDERMA (08:05)
[2023-05-03] MEDS: Mesalamine 400 MG CAP.DRTAB. 800 MG PO ×2 (08:05→21:13)
[2023-05-03] MEDS: Metoprolol Tartrate 50 MG TABLET PO ×2 (08:05→21:12)
[2023-05-03] MEDS: Gabapentin 300 MG CAPSULE PO ×2 (08:05→21:12)
[2023-05-03 08:15] LABS: C Reactive Protein 0.82 mg/dL (< or = 0.50)
[2023-05-03] MEDS: Morphine Sulfate 4 MG/ML CARTRIDGE 2 MG IVPUSH ×2 (08:25→18:02)
--- NOTE | 2023-05-03 08:46 | HE.PHANOTE ---
Methadone verification form received 05/03/23, patient dose 40 mg and last taken 05/02/23
--- NOTE | 2023-05-03 09:54 | P.PNIM_ITS ---
Subjective Subjective Date of Service: 05/03/23 Interval History: Seen and evaluated this morning passing less gas No fever or chills Abd pain around the same Plan for colonoscopy today no other overnight events Review of Systems Review of Systems: Yes all other systems are reviewed and are negative Physical Exam Vital Signs: Vital Signs: Last Vital Signs Temp 98.4 F 05/03/23 07:26 Pulse 74 05/03/23 07:26 Resp 18 05/03/23 07:26 BP 146/81 H 05/03/23 08:58 Pulse Ox 97 05/03/23 07:26 O2 Del Method Room Air 05/03/23 07:26 BMI result Body Mass Index 31.0 Const: Other: Constitutional : Awake, interactive, not in distress Neck : Normal inspection, Supple Cardiovascular : RRR, no JVP, no lower extremity edema Respiratory : good bilateral air entry, no crackles, wheezes or rhonchi Gastrointestinal: soft, lax, Normal bowel sounds, mild gen abd tenderness, no surgical signs Skin : Warm, Dry Neurological : Alert & oriented x3, No focal deficit Objective Data Active Medications Acetaminophen (Acetaminophen 325 Mg Tablet) 650 mg PO Q6H PRN PRN Reason: Pain, Mild (Pain Scale 1-3) Last Admin: 05/02/23 16:51 Dose: 650 mg Documented By: JADA Amlodipine Besylate (Amlodipine Besylate 5 Mg Tablet) 5 mg PO BEDTIME [facility] Last Admin: 05/02/23 20:28 Dose: 5 mg Documented By: HIWOT Atorvastatin Calcium (Atorvastatin Calcium 80 Mg Tablet) 80 mg PO BEDTIME [facility] Last Admin: 05/02/23 20:30 Dose: 80 mg Documented By: HIWOT Enoxaparin Sodium (Enoxaparin Sodium 30 Mg/0.3 Ml Syringe) 30 mg SUBCUT Q24H [facility] Last Admin: 05/02/23 17:06 Dose: 30 mg Documented By: JADA Gabapentin (Gabapentin 300 Mg Capsule) 300 mg PO TID [facility] Last Admin: 05/03/23 08:05 Dose: 300 mg Documented By: KANE Sodium Chloride (Ns) 1,000 mls @ 100 mls/hr IVCONT .Q10H [facility] Last Admin: 05/03/23 05:35 Dose: 100 mls/hr Documented By: HIWOT Levofloxacin (Levaquin) 500 mg in 100 mls @ 100 mls/hr IV Q24H [facility] Last Infusion: 05/03/23 09:09 Dose: 0 mls/hr Documented By: KANE Lidocaine (Lidocaine 4 % Patch Adh..Patch) 1 patch TRANSDERMA DAILY [facility] Last Admin: 05/03/23 08:05 Dose: 1 patch Documented By: KANE Mesalamine (Mesalamine 400 Mg Cap.Drtab.) 800 mg PO TID [facility] Last Admin: 05/03/23 08:05 Dose: 800 mg Documented By: KANE Methadone HCl (Methadone Hcl 20 Mg/2 Ml Oral.Conc) 40 mg PO DAILY [facility] Metoprolol Tartrate (Metoprolol Tartrate 50 Mg Tablet) 50 mg PO BID [facility]; Protocol Last Admin: 05/03/23 08:05 Dose: 50 mg Documented By: KANE Morphine Sulfate (Morphine Sulfate 4 Mg/Ml Cartridge) 2 mg IVPUSH Q4H PRN; Protocol PRN Reason: Pain, Severe (Pain Scale 7-10) Last Admin: 05/03/23 08:25 Dose: 2 mg Documented By: KANE Omeprazole (Omeprazole 20 Mg Capsule.Dr) 20 mg PO DAILY@0630 [facility] Last Admin: 05/03/23 05:37 Dose: 20 mg Documented By: HIWOT Ondansetron HCl (Ondansetron Hcl 4 Mg/2 Ml Vial) 4 mg IVPUSH Q8H PRN PRN Reason: Nausea and Vomiting Sodium Chloride (0.9 % Sodium Chloride Flush 3 Ml Syringe) 3 ml IVFLUSH QSHIFT [facility] Last Admin: 05/03/23 08:05 Dose: Not Given Documented By: KANE Non-Admin Reason: IV Running Zolpidem Tartrate (Zolpidem Tartrate 5 Mg Tablet) 5 mg PO BEDTIME [facility] Last Admin: 05/02/23 20:28 Dose: 5 mg Documented By: HIWOT Labs 05/03/23 05:34 05/03/23 05:34 Labs: Laboratory Results - last 24 hr 05/02/23 05/02/23 05/02/23 11:48 11:48 11:48 MCV 90.1 MCH 29.0 MCHC 32.1 RDW 14.4 Plt Count 243 D MPV 9.4 Immature Gran % (Auto) 0.3 Neut % (Auto) 60.2 Lymph % (Auto) 26.6 [place] % (Auto) 8.4 Eos % (Auto) 4.1 H Baso % (Auto) 0.4 Lymph # (Auto) 1.8 [place] # (Auto) 0.6 Eos # (Auto) 0.3 Baso # (Auto) 0.0 Abs Immat Gran (auto) 0.02 Absolute Neuts (auto) 4.1 Absolute Nucleated RBC 0.000 Nucleated RBC % (auto) 0.0 PT 10.5 INR 0.9 APTT 26.6 Anion Gap 15 Estim Creat Clear Calc 55.5 Estimated GFR 43 Random Glucose 99 Calcium 9.5 D Total Bilirubin 0.3 AST 22 ALT 16 Alkaline Phosphatase 74 C-Reactive Protein Total Protein 8.0 Albumin 3.7 Lipase 46 Urine Color Urine Appearance Urine pH Ur Specific [place] Urine Protein Urine Glucose (UA) Urine Ketones Urine Blood Urine Nitrite Ur Leukocyte Esterase Urine RBC Urine WBC Urine WBC Clumps Ur Squamous Epith Cells Ur Transition Epith Cell Ur Renal Epithelial Cell Calcium Oxalate Crystal Leucine Crystals Cystine Crystals Tyrosine Crystals Other Crystals Urine Bacteria Urine Parasites Bilirubin Casts Epithelial Casts Fatty Casts Hyaline Casts Granular Casts Waxy Casts Broad Casts RBC Casts WBC Casts Other Casts Urine Trichomonas Urine Yeast Blood Type Antibody Screen 05/02/23 05/03/23 05/03/23 11:48 03:46 03:46 MCV MCH MCHC RDW Plt Count MPV Immature Gran % (Auto) Neut % (Auto) Lymph % (Auto) [place] % (Auto) Eos % (Auto) Baso % (Auto) Lymph # (Auto) [place] # (Auto) Eos # (Auto) Baso # (Auto) Abs Immat Gran (auto) Absolute Neuts (auto) Absolute Nucleated RBC Nucleated RBC % (auto) PT INR APTT Anion Gap Estim Creat Clear Calc Estimated GFR Random Glucose Calcium Total Bilirubin AST ALT Alkaline Phosphatase C-Reactive Protein Total Protein Albumin Lipase Urine Color Yellow Cancelled Urine Appearance Clear Cancelled Urine pH 6.0 Cancelled Ur Specific [place] 1.020 Cancelled Urine Protein Trace Cancelled Urine Glucose (UA) Negative Cancelled Urine Ketones Negative Cancelled Urine Blood Negative Cancelled Urine Nitrite Negative Cancelled Ur Leukocyte Esterase Moderate (2+) H Cancelled Urine RBC 0-2 Cancelled Urine WBC 11-20 H Cancelled Urine WBC Clumps Cancelled Ur Squamous Epith Cells 0-2 Cancelled Ur Transition Epith Cell Cancelled Ur Renal Epithelial Cell Cancelled Calcium Oxalate Crystal Cancelled Leucine Crystals Cancelled Cystine Crystals Cancelled Tyrosine Crystals Cancelled Other Crystals Cancelled Urine Bacteria None Seen Cancelled Urine Parasites Cancelled Bilirubin Casts Cancelled Epithelial Casts Cancelled Fatty Casts Cancelled Hyaline Casts 0-2 Cancelled Granular Casts Cancelled Waxy Casts Cancelled Broad Casts Cancelled RBC Casts Cancelled WBC Casts Cancelled Other Casts Cancelled Urine Trichomonas Cancelled Urine Yeast Cancelled Blood Type A Negative Antibody Screen NEGATIVE 05/03/23 05/03/23 05:34 05:34 MCV 90.8 MCH 29.6 MCHC 32.6 RDW 14.6 Plt Count 228 MPV 9.5 Immature Gran % (Auto) Neut % (Auto) Lymph % (Auto) [place] % (Auto) Eos % (Auto) Baso % (Auto) Lymph # (Auto) [place] # (Auto) Eos # (Auto) Baso # (Auto) Abs Immat Gran (auto) Absolute Neuts (auto) Absolute Nucleated RBC 0.000 Nucleated RBC % (auto) 0.0 PT INR APTT Anion Gap 13 Estim Creat Clear Calc 59.9 Estimated GFR 47 Random Glucose 77 Calcium 9.3 Total Bilirubin AST ALT Alkaline Phosphatase C-Reactive Protein 0.82 H Total Protein Albumin Lipase Urine Color Urine Appearance Urine pH Ur Specific [place] Urine Protein Urine Glucose (UA) Urine Ketones Urine Blood Urine Nitrite Ur Leukocyte Esterase Urine RBC Urine WBC Urine WBC Clumps Ur Squamous Epith Cells Ur Transition Epith Cell Ur Renal Epithelial Cell Calcium Oxalate Crystal Leucine Crystals Cystine Crystals Tyrosine Crystals Other Crystals Urine Bacteria Urine Parasites Bilirubin Casts Epithelial Casts Fatty Casts Hyaline Casts Granular Casts Waxy Casts Broad Casts RBC Casts WBC Casts Other Casts Urine Trichomonas Urine Yeast Blood Type Antibody Screen Assessment and Plan (1) Pouchitis: Status: Acute (2) Clostridium difficile carrier: Status: Acute Plan a 58-year-old male with a PMH significant for?ulcerative colitis s/p total colectomy with ileal pouch to anal anastomosis in 2007, CKD, depression, HTN, HLD, and history of opioid use disorder on methadone who presents to the ED with?three days of abdominal pain. Abdominal pain 2/[address] scan reporting possible small bowel obstruction No surgical cause per surgery team, likely pouchitis Keep NPO Gentle IVF Zofran PRN Levaquin IV Stool studies GI input appreciated, to do colonoscopy advance diet as tolerated C.Diff carrier no evidence of colitis prophylactic Vancomycin while on Abx Peripheral neuropathy gabapentin tid Insomnia Continue zolpidem HLD Continue statin HTN Continue felodipine, metoprolol Full Code DVT Prophylaxis: Lovenox Time Spent With Patient Time: Total time managing care of this patient today ____ minutes. Quality Stroke Does the patient have a stroke diagnosis?: No VTE Prior VTE?: No VTE Risk Level:: Medical - moderate - high VTE Device Contraindication: Treatment Not Indicated VTE Drug Contraindication: N/A - Med Ordered
[2023-05-03] MEDS: methADONE HCl 20 MG/2 ML ORAL.CONC 40 MG PO (10:14)
--- NOTE | 2023-05-03 10:41 | MHC.CM.PN ---
Addendum entered by Justine Washburn 05/03/23 10:46: MTD @ [facility]. Original Note: EDITH 05/03/23 Male 58 DX Abdominal pain. He lives w .. He states that he is independent with all functional mobility. A HCP is on file. Patient MTD 45MG Methadone QD. PT will need a last dose letter. DP home self care. Patient will arrange for transport home.
[2023-05-03 14:46] LABS: Adenovirus F 40/41 Not Detected (Not Detect.); Astrovirus Not Detected (Not Detect.); Campylobacter Not Detected (Not Detect.); Cryptosporidium Not Detected (Not Detect.); Cyclospora cayetanensis Not Detected (Not Detect.); E. coli EAEC Not Detected (Not Detect.); E. coli EPEC Not Detected (Not Detect.); E. coli ETEC Not Detected (Not Detect.); E. coli STEC Not Detected (Not Detect.); Entamoeba histolytica Not Detected (Not Detect.); Giardia lamblia Not Detected (Not Detect.); Norovirus GI/GII Detected (Not Detect.); Plesiomonas shigelloides Not Detected (Not Detect.); Rotavirus A Not Detected (Not Detect.); Salmonella Not Detected (Not Detect.); Shigella sp./EIEC Not Detected (Not Detect.); Vibrio Not Detected (Not Detect.); Vibrio Cholerae Not Detected (Not Detect.); Yersinia enterocolitica Not Detected (Not Detect.)
--- NOTE | 2023-05-03 14:49 | MHC.IC ---
Patient is positive for NOROVIRUS. Strict handwashing with soap and water after all contact and use bleach to clean surfaces.
[2023-05-03 14:52] LABS: Sapovirus Not Detected (Not Detect.)
--- NOTE | 2023-05-03 15:04 | MHC.SHP ---
Pre-Procedural Eval Section A Date of Service: 05/03/23 The patient is an INPATIENT: Yes The History & Physical has been completed within 30 days and I have reviewed it.: Yes Section B Chief Complaint: Ileoanal anastomosis stricture Allergies: Allergies Allergy/AdvReac Type Severity Reaction Status Date / Time Iodinated Contrast Media Allergy Intermediate HIVES Verified 05/02/23 11:04 [IV CONTRAST] prednisone [PREDNISONE] Allergy Mild RASH Verified 05/02/23 11:04 Plan Diagnosis/Plan: Unchanged I have reviewed the history and physical and performed a pertinent physical examination on my patient. No changes have occurred unless specified. Time Spent With Patient Time: Total time managing care of this patient today ____ minutes.
--- NOTE | 2023-05-03 15:06 | P.OP_ITS ---
Operative Note Operative Note Date of Service: 05/03/23 Narrative: Procedure: Flexible sigmoidoscopy Indication: Pouchitis Endoscopist: Taryn Lazcano MD Anesthesia Provider: Dr Elaine Armas Anesthesia type: MAC Instrument: Olympus [id number] Consent: Indication, risks vs benefits, and alternatives were discussed with the patient who gave written informed consent to proceed. EKG, pulse, pulse oximetry and blood pressure were monitored throughout the procedure. Please see anesthesia flowsheet. Procedure: The patient was brought to the procedure room and placed in the left lateral decubitus position. IV medications were administered by the anesthesia provider in attendance. A digital rectal exam was performed which was abnormal for tight anal canal. The gastroscope was then inserted through the anus and advanced through the ileum at 50 cm. Mucosa was carefully examined under high de finition white light as the instrument was slowly withdrawn in a retrograde panoramic fashion. Retroflexion was performed in the J pouch. The procedure was not difficult. There were no immediate obvious complications. Limitations: No limitations. Findings: Mucosa: The ileoanal anastomosis was tight but could be traversed with the gastroscope. The length of the J pouch was measured at 16 cm. The mucosa of the J pouch was normal appearing however there was friability and ulceration at the at the inlet at 20 cm. The mucosa of afferent and efferent limb appeared normal. There was a small fistulous/sinus tract opening noted just distal to dentate line in the rectal cuff. Cold forceps biopsies were taken from afferent and efferent limb, pouch as well as inlet (labeled as anastomosis). Additional intervention: A wire guided balloon was used (measured 5.5 cm in length) with the guidewire removed, to dilate the ileoanal canal gradually from 10 mm to 12 mm. Impression: 1. J pouch inlet with erythema, friability and ulceration (biopsy) 2. Pouch, efferent and afferent limb appeared endoscopically normal (biopsy) 3. 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 Narrowing at ileoanal anastamosis (dilation) Recommendations: - Appearance highly suggestive of crohns disease - Will likely need therapy escalated to anti-TNF vs Vedo. TSPOT and hep serologies ordered. - Would also recommend MRI pelvis for further evaluation of the fistula - Can advance diet to clears and progress as tolerated - Cont VSL enema and Cipro
--- NOTE | 2023-05-03 15:31 | P.CONAN_ITS ---
HPI - Anesthesia Eval Consult details Narrative: pouchitis PMFSH Active Problems Active Problems: All Active Problems (Updated 05/02/23 @ 15:43 by Rebecca Houston NP) Pouchitis (Acute) Crohn's disease of both small and large intestine (Acute) Small bowel obstruction (Acute) Clostridium difficile carrier (Acute) Inflammation of ileoanal pouch (Acute) Opioid use disorder (Acute) HTN (hypertension) (Acute) Past Medical History Medical History CKD (chronic kidney disease) Colitis Constipation Crohn's disease of both small and large intestine HLD (hyperlipidemia) HTN (hypertension) Opioid use disorder Ulcerative colitis Family History Family History Mother Stroke Diabetes mellitus HTN (hypertension), benign Hyperlipidemia Brother Diabetes mellitus Family history of problems with anesthesia: No Surgical History Surgical History H/O cervical spine surgery H/O total colectomy History of colostomy reversal History of esophagogastroduodenoscopy (EGD) Hx of colonoscopy History of Problems with Anesthesia: No Social History Social History Household Members: None Housing: Apartment Housing Other:: Rents a room Do you presently have visiting nurse or other home services: No Alcohol intake: never Patient Tobacco Use Status: Never used Tobacco e-Cigarette/Vaping Use: Never Used Second Hand Smoke Exposure: No Substance Use Type: Heroin Advance Directives Date on File: 03/08/21 service: No Current occupational status: unemployed Meds Allergies Allergy/AdvReac Type Severity Reaction Status Date / Time Iodinated Contrast Media Allergy Intermediate HIVES Verified 05/02/23 11:04 [IV CONTRAST] prednisone [PREDNISONE] Allergy Mild RASH Verified 05/02/23 11:04 Active Medications: Current Medications Acetaminophen (Acetaminophen 325 Mg Tablet) 650 mg PO Q6H PRN PRN Reason: Pain, Mild (Pain Scale 1-3) Last Admin: 05/02/23 16:51 Dose: 650 mg Amlodipine Besylate (Amlodipine Besylate 5 Mg Tablet) 5 mg PO BEDTIME MELVI Last Admin: 05/02/23 20:28 Dose: 5 mg Atorvastatin Calcium (Atorvastatin Calcium 80 Mg Tablet) 80 mg PO BEDTIME [facility] Last Admin: 05/02/23 20:30 Dose: 80 mg Enoxaparin Sodium (Enoxaparin Sodium 30 Mg/0.3 Ml Syringe) 30 mg SUBCUT Q24H [facility] Last Admin: 05/02/23 17:06 Dose: 30 mg Gabapentin (Gabapentin 300 Mg Capsule) 300 mg PO TID [facility] Last Admin: 05/03/23 08:05 Dose: 300 mg Sodium Chloride (Ns) 1,000 mls @ 100 mls/hr IVCONT .Q10H [facility] Last Admin: 05/03/23 15:02 Dose: Not Given Levofloxacin (Levaquin) 500 mg in 100 mls @ 100 mls/hr IV Q24H [facility] Last Infusion: 05/03/23 09:09 Dose: Infused Lidocaine (Lidocaine 4 % Patch Adh..Patch) 1 patch TRANSDERMA DAILY [facility] Last Admin: 05/03/23 08:05 Dose: 1 patch Mesalamine (Mesalamine 400 Mg Cap.Drtab.) 800 mg PO TID [facility] Last Admin: 05/03/23 08:05 Dose: 800 mg Methadone HCl (Methadone Hcl 20 Mg/2 Ml Oral.Conc) 40 mg PO DAILY [facility] Last Admin: 05/03/23 10:14 Dose: 40 mg Metoprolol Tartrate (Metoprolol Tartrate 50 Mg Tablet) 50 mg PO BID [facility]; Protocol Last Admin: 05/03/23 08:05 Dose: 50 mg Morphine Sulfate (Morphine Sulfate 4 Mg/Ml Cartridge) 2 mg IVPUSH Q4H PRN; Protocol PRN Reason: Pain, Severe (Pain Scale 7-10) Last Admin: 05/03/23 08:25 Dose: 2 mg Omeprazole (Omeprazole 20 Mg Capsule.Dr) 20 mg PO DAILY@0630 [facility] Last Admin: 05/03/23 05:37 Dose: 20 mg Ondansetron HCl (Ondansetron Hcl 4 Mg/2 Ml Vial) 4 mg IVPUSH Q8H PRN PRN Reason: Nausea and Vomiting Sodium Chloride (0.9 % Sodium Chloride Flush 3 Ml Syringe) 3 ml IVFLUSH QSHIFT [facility] Last Admin: 05/03/23 08:05 Dose: Not Given Vancomycin HCl (Vancomycin Hcl 125 Mg Capsule) 125 mg PO Q6H [facility] Last Admin: 05/03/23 15:02 Dose: Not Given Zolpidem Tartrate (Zolpidem Tartrate 5 Mg Tablet) 5 mg PO BEDTIME [facility] Last Admin: 05/02/23 20:28 Dose: 5 mg Home Medications Medication Instructions Recorded Confirmed Last Taken Type felodipine 5 mg tablet,extended 1 tab PO BEDTIME 03/03/21 05/02/23 05/01/23 History release 24 hr mesalamine 400 mg capsule (with 2 cap PO TID 03/03/21 05/02/23 05/02/23 History delayed release tablets inside) metoprolol tartrate 50 mg tablet 1 tab PO BID 03/03/21 05/02/23 05/02/23 History pantoprazole 40 mg tablet,delayed 1 tab PO DAILY@0630 03/03/21 05/02/23 05/02/23 History release rosuvastatin 40 mg tablet 1 tab PO BEDTIME 03/03/21 05/02/23 05/02/23 History zolpidem 10 mg tablet 1 tab PO BEDTIME 03/03/21 05/02/23 05/01/23 History ferrous gluconate 324 mg (38 mg 1 tab PO QAM 06/30/21 05/02/23 05/02/23 History iron) tablet lidocaine 5 % topical patch 1 patch topical DAILY 08/20/21 05/02/23 05/02/23 History cyanocobalamin (vitamin B-12) 1 tab PO DAILY 07/07/22 05/02/23 05/02/23 History 1,000 mcg tablet gabapentin 300 mg capsule 300 mg PO TID 02/17/23 05/02/23 05/02/23 History methadone 10 mg/mL oral concentrate 44 mg PO DAILY 02/17/23 02/17/23 05/02/23 History Exam Exam Date and Time: May 03, 2023 1531 Height,Weight and Vital Signs: Height 5 ft 9 in Weight 95.254 kg Last Vital Signs Temp 98.0 F 05/03/23 14:38 Pulse 72 05/03/23 14:38 Resp 16 05/03/23 14:38 BP 169/94 H 05/03/23 14:38 Pulse Ox 95 05/03/23 14:38 O2 Del Method Room Air 05/03/23 14:38 Pertinent Lab Results Pertinent Lab Results: Laboratory Tests 05/02/23 05/02/23 05/02/23 11:48 11:48 11:48 WBC 6.8 RBC 4.04 L Hgb 11.7 L Hct 36.4 L MCV 90.1 MCH 29.0 MCHC 32.1 RDW 14.4 Plt Count 243 D MPV 9.4 Immature Gran % (Auto) 0.3 Neut % (Auto) 60.2 Lymph % (Auto) 26.6 [place] % (Auto) 8.4 Eos % (Auto) 4.1 H Baso % (Auto) 0.4 Lymph # (Auto) 1.8 [place] # (Auto) 0.6 Eos # (Auto) 0.3 Baso # (Auto) 0.0 Abs Immat Gran (auto) 0.02 Absolute Neuts (auto) 4.1 Absolute Nucleated RBC 0.000 Nucleated RBC % (auto) 0.0 PT 10.5 INR 0.9 APTT 26.6 Sodium 139 Potassium 4.3 Chloride 105 Carbon Dioxide 23 Anion Gap 15 BUN 19 H Creatinine 1.65 H Estim Creat Clear Calc 55.5 Estimated GFR 43 Random Glucose 99 Calcium 9.5 D Total Bilirubin 0.3 AST 22 ALT 16 Alkaline Phosphatase 74 C-Reactive Protein Total Protein 8.0 Albumin 3.7 Lipase 46 Urine Color Urine Appearance Urine pH Ur Specific [place] Urine Protein Urine Glucose (UA) Urine Ketones Urine Blood Urine Nitrite Ur Leukocyte Esterase Urine RBC Urine WBC Urine WBC Clumps Ur Squamous Epith Cells Ur Transition Epith Cell Ur Renal Epithelial Cell Calcium Oxalate Crystal Leucine Crystals Cystine Crystals Tyrosine Crystals Other Crystals Urine Bacteria Urine Parasites Bilirubin Casts Epithelial Casts Fatty Casts Hyaline Casts Granular Casts Waxy Casts Broad Casts RBC Casts WBC Casts Other Casts Urine Trichomonas Urine Yeast Stl C. cayetanensis PCR Stool Rotavirus A PCR Stl Adenov F 40/41 PCR Stool Astrovirus (PCR) Stool Campylobacter PCR Stool Cryptosporidium PCR Stl Sh Tox Pr E STEC PCR Stool E coli O157 PCR Stl Enterotoxigenic E PCR Stool EPEC (PCR) Stool EAEC (PCR) Stl E. histolytica PCR Stool Giardia Lamblia PCR Stl P. shigelloides PCR Stool Salmonella PCR Stool Sapovirus (PCR) Stl Shigella/EIEC PCR St Y.enterocolitica PCR Stool Vibrio (PCR) Stl Vibrio cholerae PCR Stl Norovirus GI/GII PCR Blood Type Antibody Screen 05/02/23 05/03/23 05/03/23 11:48 03:46 03:46 WBC RBC Hgb Hct MCV MCH MCHC RDW Plt Count MPV Immature Gran % (Auto) Neut % (Auto) Lymph % (Auto) [place] % (Auto) Eos % (Auto) Baso % (Auto) Lymph # (Auto) [place] # (Auto) Eos # (Auto) Baso # (Auto) Abs Immat Gran (auto) Absolute Neuts (auto) Absolute Nucleated RBC Nucleated RBC % (auto) PT INR APTT Sodium Potassium Chloride Carbon Dioxide Anion Gap BUN Creatinine Estim Creat Clear Calc Estimated GFR Random Glucose Calcium Total Bilirubin AST ALT Alkaline Phosphatase C-Reactive Protein Total Protein Albumin Lipase Urine Color Yellow Cancelled Urine Appearance Clear Cancelled Urine pH 6.0 Cancelled Ur Specific [place] 1.020 Cancelled Urine Protein Trace Cancelled Urine Glucose (UA) Negative Cancelled Urine Ketones Negative Cancelled Urine Blood Negative Cancelled Urine Nitrite Negative Cancelled Ur Leukocyte Esterase Moderate (2+) H Cancelled Urine RBC 0-2 Cancelled Urine WBC 11-20 H Cancelled Urine WBC Clumps Cancelled Ur Squamous Epith Cells 0-2 Cancelled Ur Transition Epith Cell Cancelled Ur Renal Epithelial Cell Cancelled Calcium Oxalate Crystal Cancelled Leucine Crystals Cancelled Cystine Crystals Cancelled Tyrosine Crystals Cancelled Other Crystals Cancelled Urine Bacteria None Seen Cancelled Urine Parasites Cancelled Bilirubin Casts Cancelled Epithelial Casts Cancelled Fatty Casts Cancelled Hyaline Casts 0-2 Cancelled Granular Casts Cancelled Waxy Casts Cancelled Broad Casts Cancelled RBC Casts Cancelled WBC Casts Cancelled Other Casts Cancelled Urine Trichomonas Cancelled Urine Yeast Cancelled Stl C. cayetanensis PCR Stool Rotavirus A PCR Stl Adenov F 40/41 PCR Stool Astrovirus (PCR) Stool Campylobacter PCR Stool Cryptosporidium PCR Stl Sh Tox Pr E STEC PCR Stool E coli O157 PCR Stl Enterotoxigenic E PCR Stool EPEC (PCR) Stool EAEC (PCR) Stl E. histolytica PCR Stool Giardia Lamblia PCR Stl P. shigelloides PCR Stool Salmonella PCR Stool Sapovirus (PCR) Stl Shigella/EIEC PCR St Y.enterocolitica PCR Stool Vibrio (PCR) Stl Vibrio cholerae PCR Stl Norovirus GI/GII PCR Blood Type A Negative Antibody Screen NEGATIVE 05/03/23 05/03/23 05/03/23 05:34 05:34 10:55 WBC 5.8 RBC 3.92 L Hgb 11.6 L Hct 35.6 L MCV 90.8 MCH 29.6 MCHC 32.6 RDW 14.6 Plt Count 228 MPV 9.5 Immature Gran % (Auto) Neut % (Auto) Lymph % (Auto) [place] % (Auto) Eos % (Auto) Baso % (Auto) Lymph # (Auto) [place] # (Auto) Eos # (Auto) Baso # (Auto) Abs Immat Gran (auto) Absolute Neuts (auto) Absolute Nucleated RBC 0.000 Nucleated RBC % (auto) 0.0 PT INR APTT Sodium 139 Potassium 4.3 Chloride 105 Carbon Dioxide 25 Anion Gap 13 BUN 19 H Creatinine 1.53 H Estim Creat Clear Calc 59.9 Estimated GFR 47 Random Glucose 77 Calcium 9.3 Total Bilirubin AST ALT Alkaline Phosphatase C-Reactive Protein 0.82 H Total Protein Albumin Lipase Urine Color Urine Appearance Urine pH Ur Specific [place] Urine Protein Urine Glucose (UA) Urine Ketones Urine Blood Urine Nitrite Ur Leukocyte Esterase Urine RBC Urine WBC Urine WBC Clumps Ur Squamous Epith Cells Ur Transition Epith Cell Ur Renal Epithelial Cell Calcium Oxalate Crystal Leucine Crystals Cystine Crystals Tyrosine Crystals Other Crystals Urine Bacteria Urine Parasites Bilirubin Casts Epithelial Casts Fatty Casts Hyaline Casts Granular Casts Waxy Casts Broad Casts RBC Casts WBC Casts Other Casts Urine Trichomonas Urine Yeast Stl C. cayetanensis PCR Not Detected Stool Rotavirus A PCR Not Detected Stl Adenov F 40/41 PCR Not Detected Stool Astrovirus (PCR) Not Detected Stool Campylobacter PCR Not Detected Stool Cryptosporidium PCR Not Detected Stl Sh Tox Pr E STEC PCR Not Detected Stool E coli O157 PCR Not applicable Stl Enterotoxigenic E PCR Not Detected Stool EPEC (PCR) Not Detected Stool EAEC (PCR) Not Detected Stl E. histolytica PCR Not Detected Stool Giardia Lamblia PCR Not Detected Stl P. shigelloides PCR Not Detected Stool Salmonella PCR Not Detected Stool Sapovirus (PCR) Not Detected Stl Shigella/EIEC PCR Not Detected St Y.enterocolitica PCR Not Detected Stool Vibrio (PCR) Not Detected Stl Vibrio cholerae PCR Not Detected Stl Norovirus GI/GII PCR Detected A Blood Type Antibody Screen Airway Mallampati Class: III TM Dist: >3cm Neck ROM: Full Loose/Missing/Broken Teeth: No Heart: rr Lungs: cta Assessment and Plan Assessment Anesthesia Assessment: Anesthesia Plan Discussed and Chart Reviewed Final Anesthetic Review Family History of Problems with Anesthesia: No History of Problems with Anesthesia: No NPO: Yes ASA Class: III and Emergency Final Preanesthetic Review: No Changes in Pt Med Stat, Meds/Allgs Chart Reviewed, Consent Obtained/Reviewed and Anes Risks/Benef Reviewed Patient Risk: Intermediate Procedure Risk: Low Anesthetic Plan Anesthetic Plan: MAC: Disposition: Standard PACU
[2023-05-03] MEDS: Enoxaparin Sodium 30 MG/0.3 ML SYRINGE SUBCUT (18:20)
[2023-05-03] MEDS: vancomycin HCL 125 MG CAPSULE PO (18:20)
[2023-05-03] MEDS: Atorvastatin Calcium 80 MG TABLET PO (21:12)
[2023-05-03] MEDS: Zolpidem Tartrate 5 MG TABLET PO (21:12)
[2023-05-03] MEDS: amLODIPine Besylate 5 MG TABLET PO (21:13)
[2023-05-04] MEDS: vancomycin HCL 125 MG CAPSULE PO ×3 (00:04→11:02)
[2023-05-04 04:00] VITALS: BP 154/82; PULSE 69; RESP 18; TEMP 36.7; O2SAT 96
[2023-05-04] MEDS: 0.9 % Sodium Chloride 1,000 ML 100 ML IVCONT (04:25)
[2023-05-04] MEDS: Omeprazole 20 MG CAPSULE.DR PO (06:07)
[2023-05-04 07:38] VITALS: BP 167/83; PULSE 69; RESP 18; TEMP 37.1; O2SAT 95
[2023-05-04] MEDS: levoFLOXacin/D5W 500 MG/100 ML PIGGYBACK 100 MG IV (08:42)
[2023-05-04] MEDS: Metoprolol Tartrate 50 MG TABLET PO (08:42)
[2023-05-04] MEDS: Mesalamine 400 MG CAP.DRTAB. 800 MG PO (08:42)
[2023-05-04] MEDS: methADONE HCl 20 MG/2 ML ORAL.CONC 40 MG PO (08:42)
[2023-05-04] MEDS: Gabapentin 300 MG CAPSULE PO (08:42)
[2023-05-04] MEDS: Lidocaine 4 % Patch ADH..PATCH 1 PATCH TRANSDERMA (11:02)
[2023-05-04 11:30] VITALS: BP 158/83; PULSE 68; RESP 19; TEMP 36.7
--- NOTE | 2023-05-04 11:30 | PM.DS ---
DS: Providers Provider Date of Service: 05/04/23 Date of admission: 05/02/23 15:51 Primary care physician: Dariela Scott MD Consults: 05/02/23 15:51 Consult to Gastroenterology Routine Consulting Provider: Taryn Lazcano Reason for consultation: Abd pain, suspected pouchitis DS: Diagnosis Discharge Diagnosis (1) Pouchitis: Status: Acute (2) Clostridium difficile carrier: Status: Acute (3) Crohn's disease of both small and large intestine: Status: Acute (4) Inflammation of ileoanal pouch: Status: Acute DS: Summary Hospital Course Hospital Course: Admission note HPI a 57-year-old male with a PMH significant for?ulcerative colitis s/p total colectomy with ileal pouch to anal anastomosis in 2007, CKD, depression, HTN, HLD, and history of opioid use disorder on methadone who presents to the ED with?three days of abdominal pain. he reports doing fairly well until 3 days ago when he started to have abdominal pain, sharp, mid-abdomen, not radiating, related with nausea but no vomiting or diarrhea. No fever, chills or urinary symptoms. In ED CT scan was consistent with possible obstruction of small bowel. evaluated by surgeon who felt it is more of pouchitis than actual obstruction. Admitted for observation and GI eval. Hospital course The patient was admitted for treatment of abdominal pain secondary to acute pouchitis as CT scan reporting possible small bowel obstruction that was not a surgical cause per surgery team who believed it was likely pouchitis. Kept NPO and treated with IV fluids and IV antibiotics. Vancomycin PO added as prophylaxis for CDiff as he is a carrier. evaluated by cattle dehorner who did a colonoscopy showing evidence of pouchitis, suspected fistula\sinus and narrowing of the anastamosis area that was dilated with appearance suggestive of crohns disease, Biopsies were taken and still pending. tolerated diet well and had bowel movements. To do pelvis MRI as outpatient for evaluation of possible fistula. Continue Ciprofloxacin for 2 weeks Continue Vancomycin for 2 weeks as a prophylaxis To follow with GI after the 2 weeks for biopsy results and further management Time Spent with Patient Time attestation: Total time managing care of this patient today ____ minutes. Discharge coordination time: Greater than 30 minutes Quality: Safe Use of Opioids Does Pt have an Active Cancer Diagnosis on the Problem List?: No Quality: Stroke Does the patient have a stroke diagnosis?: No Physical Exam Vital Signs: Vital Signs: Last Vital Signs Temp 98.8 F 05/04/23 07:38 Pulse 69 05/04/23 07:38 Resp 18 05/04/23 07:38 BP 167/83 H 05/04/23 07:38 Pulse Ox 95 05/04/23 07:38 O2 Del Method Room Air 05/04/23 07:38 O2 Flow Rate 6 05/03/23 15:57 BMI result Body Mass Index 31.0 Const: Other: Constitutional : Awake, interactive, not in distress Neck : Normal inspection, Supple Cardiovascular : RRR, no JVP, no lower extremity edema Respiratory : good bilateral air entry, no crackles, wheezes or rhonchi Gastrointestinal: soft, lax, Normal bowel sounds, no tenderness, no surgical signs Skin : Warm, Dry Neurological : Alert & oriented x3, No focal deficit DS: Data Data Completed and Pending Pending studies at discharge: Pending at discharge 05/03/23 15:33 Surgical [PTH] Routine Labs on day of discharge: Laboratory Results - last 24 hr 05/03/23 10:55 Stl C. cayetanensis PCR Not Detected Stool Rotavirus A PCR Not Detected Stl Adenov F 40/41 PCR Not Detected Stool Astrovirus (PCR) Not Detected Stool Campylobacter PCR Not Detected Stool Cryptosporidium PCR Not Detected Stl Sh Tox Pr E STEC PCR Not Detected Stool E coli O157 PCR Not applicable Stl Enterotoxigenic E PCR Not Detected Stool EPEC (PCR) Not Detected Stool EAEC (PCR) Not Detected Stl E. histolytica PCR Not Detected Stool Giardia Lamblia PCR Not Detected Stl P. shigelloides PCR Not Detected Stool Salmonella PCR Not Detected Stool Sapovirus (PCR) Not Detected Stl Shigella/EIEC PCR Not Detected St Y.enterocolitica PCR Not Detected Stool Vibrio (PCR) Not Detected Stl Vibrio cholerae PCR Not Detected Stl Norovirus GI/GII PCR Detected A Imaging CT scan - abdomen: Radiologist's impression: ITS Impressions Abdomen/Pelvis CT 05/02/23 12:10 IMPRESSION: Dilated stool-filled distal small bowel down to the ileoanal anastomosis questionable for obstruction at the ileoanal anastomosis. Fleischner guidelines were followed. Discharge Plan Discharge Anticipated Discharge Date/Time: 05/04/23 11:26 Patient Disposition: Home, Self-Care Discharge Diagnosis: Acute Pouchitis Referrals: Dariela Zapata MD [Primary Care Provider] - 1 Week Discharge Medications: New vancomycin 125 mg Capsule 125 mg PO Q6H 12 Days Qty: 48 0RF ciprofloxacin HCl 500 mg tablet 500 mg PO BID Qty: 24 0RF Continued felodipine 5 mg tablet extended release 24 hr 1 tab PO BEDTIME pantoprazole 40 mg tablet,delayed release (DR/EC) 1 tab PO DAILY@0630 metoprolol tartrate 50 mg tablet 1 tab PO BID zolpidem 10 mg tablet 1 tab PO BEDTIME mesalamine 400 mg capsule (with del rel tablets) 2 cap PO TID rosuvastatin 40 mg tablet 1 tab PO BEDTIME ferrous gluconate 324 mg (38 mg iron) tablet 1 tab PO QAM cyanocobalamin (vitamin B-12) 1,000 mcg tablet 1 tab PO DAILY lidocaine 5 % adhesive patch,medicated 1 patch topical DAILY gabapentin 300 mg capsule 300 mg PO TID methadone 10 mg/mL Concentrate 44 mg PO DAILY Discharge Orders: Discharge Order (Routine); Ordered 05/04/23 Ordered By: Mela Bates Diet: Advance to usual diet Activity on Discharge: As tolerated Stand Alone Forms: Patient Portal Discharge page Care Plan Goals: Read below Health Concerns: Read below Plan of Treatment: Read below Assessment: You were admitted to the hospital for evaluation of abdominal pain. CT abdomen showed small bowel inflammation evaluated by surgery and gastroenterology as a colonoscopy was done showing an evidence of inflammation in the anatamosis area. treated with IV antibiotics and fluids with good response. Continue Ciprofloxacin for 2 weeks Continue Vancomycin for 2 weeks as a prophylaxis To follow with GI after the 2 weeks for biopsy results and further management
--- NOTE | 2023-05-04 13:00 | MHC.CM.PN ---
Patient is tolerating advanced diet. Discharge today to home self care. Patient will arrange for a ride home.
--- NOTE | 2023-05-04 13:59 | HO.POSTANES ---
Post Anesthesia Evaluation Post Anesthesia Evaluation Date of Service: 05/04/23 Vital Signs: Vital Signs Temp Pulse Resp BP Pulse Ox O2 Del Method 05/04/23 11:30 98.0 F 68 19 158/83 H 05/04/23 07:38 98.8 F 69 18 167/83 H 95 Room Air 05/04/23 04:00 98.1 F 69 18 154/82 H 96 Room Air Anesthesia: Monitored Mental Status: Awake Pain Control: Satisfactory Nausea/Vomiting: None Hydration: Adequate Anesthesia-Related Issues: No Anes. Related Issues
[2023-05-05 05:48] LABS: HBS Num1 127.84 mIU/mL (0-7.99); HBsAGNum1 0.44 S/CO (0.00-0.99); Hepatitis B Core Antibody Nonreactive (Nonreactive); Hepatitis B Surface Antigen Negative (Negative); ~HepC Num1 0.39 S/CO (0.00-0.79); ~Hepatitis B Surface Antibody REACTIVE (Nonreactive); ~Hepatitis C Antibody Nonreactive (Nonreactive)
[2023-05-06 16:29] LABS: TS Negative Control Passed; TS Panel A 0; TS Panel B 1; TS Positive Control Passed; TSpotTB Negative (Negative)
[2023-05-09 18:38] LABS: Calprotectin, Fecal 1500 mcg/g
== END 2023-05-04 13:18 | disposition home or self-care (01) ==
LOC: HO.ED 13:50 → HO.EDOVER 16:01 → HO.S3 17:18
PROVIDERS: Internal Medicine; Physician Assistant; Admitting Provider Student in an Organized Health Care Education/Training Program; Emergency Provider Emergency Medicine; PCP Internal Medicine; Visit Provider Student in an Organized Health Care Education/Training Program
PROC: 0DJD8ZZ Inspection of Lower Intestinal Tract, Via Natural or Artificial Opening Endoscopic (ICD-10-PCS; CPT 45330; principal; 2023-05-03 15:00)
DX: K91.850 Pouchitis (principal); K50.80 Crohn's disease of both small and large intestine without complications; K56.609 Unspecified intestinal obstruction, unspecified as to partial versus complete obstruction; Z22.1 Carrier of other intestinal infectious diseases; I12.9 Hypertensive chronic kidney disease with stage 1 through stage 4 chronic kidney disease, or unspecified chronic kidney disease; N18.9 Chronic kidney disease, unspecified; E78.5 Hyperlipidemia, unspecified; Z98.0 Intestinal bypass and anastomosis status; F11.20 Opioid dependence, uncomplicated
CPT/HCPCS: 45331; 45340; 36415; 74176; 80048; 80053; 81001; 83690; 83993; 85025; 85027; 85610; 85730; 86140; 86481; 86704; 86706; 86803; 86850; 86900; 86901; 87086; 87340; 87507; 88305; 88342; 93005; 96361; 96365; 96366; 96372; 96375; 96376; 99221; 99285; C1726; J1650; J1956; J2270

== ENCOUNTER 2023-07-24 13:46 | Outpatient (REF) | payer MEDICAID, SELFPAY | END 2023-07-24 13:47 | disposition home or self-care (01) | LOC: HO.LAB 13:46 | PROVIDERS: PCP Internal Medicine; Visit Provider Internal Medicine Gastroenterology | DX: K50.10 Crohn's disease of large intestine without complications (principal) | CPT/HCPCS: 99212 ==

== ENCOUNTER 2023-07-24 13:46 | Outpatient (AMB) | payer MEDICAID, SELFPAY ==
[2023-07-24 13:53] VITALS: BP 139/81; PULSE 78; BMI 37.8
--- NOTE | 2023-07-24 13:53 | MHC.OFFVIS ---
Intake Vital Signs 07/24/23 13:53 Height 5 ft 9 in Weight 255 lb 11.779 oz BMI 37.8 BP 139/81 Blood Pressure Location Lt brachial Position Sitting Pulse 78 Intake Visit Reasons: [facility] [place] Intake Note: Jayden presents in the office as a follow up colonoscopy. CC: He states that he is here for results and he wants to know if he can have something loose stools at night and it is making him have a hard time sleeping. He ran out of medications and needs refills. Enamel Dipper Required: Yes Enamel Dipper Name: [id number] Jesika Allergies Iodinated Contrast Media [IV CONTRAST] Allergy (Intermediate, Verified 07/24/23 13:56) HIVES prednisone [PREDNISONE] Allergy (Mild, Verified 07/24/23 13:56) RASH HPI [facility] [place] HPI Details 58 yr old m here for f/u RECAP: I last saw him 07/2021 ? He had been having numerous diarrheal stools for 1-2 weeks associated with RLQ discomfort and cramps. Blood noted on wiping, but not in the toilet. He was on asacol for his crohns disease He was given Rocephin, Flagyl, IV fluid and pain medicine and his sx improved with in patient treatment ?Abdominal CT reported by radiologist as showing colitis to the remaining sigmoid colon without any abscess or fluid collection. Colonoscopy: 01/2020 appeared to have a pouch without any sigmoid colon a s noted in the CT scan, the bx of small bowel were normal, as were the pouch. There did appear to be inflammation around ileo anal area but bx were ok. I gave him cipro at the time and anti fungal cream due to maceration of anal skin due to diarrhea. He had repeat admission for diarrhea and treated for pouchitis 06/2021--wiht Ct revealing mild bowel wall thickening and stranding in pelvis. He went to Ed again for abdo pain and nausea and was givne ABx again He was admitted with suspected SBO vs pouchitis 04/2023 and had pouchoscopy done by Dr Lazcano with possible fistula noted and tight J pouch needed dilation --Bx revealed chronic ileocolitis INTERIM: he has diarrhea and abdominal pain no nausea no vomiting no fevers no joint pains stopped smoking and drus 5-6 months ago EXAM: GENERAL: The patient is well developed and nontoxic. VITAL SIGNS:see workflow HEENT: Nonicteric sclerae, PERRLA, EOMI. Oropharynx clear. Moist mucous membranes. Conjunctivae appear well perfused. No thyroid mass. CHEST: Chest wall is nontender. HEART: Regular rate and rhythm without murmurs. LUNGS: Clear to auscultation bilaterally. ABDOMEN: Soft, positive bowel sounds, nontender, no organomegaly.no flank tenderness SKIN: No rash, no excessive bruising, petechiae, or purpura. NEUROLOGIC: Cranial nerves II-XII intact without motor/sensory deficit. Psych: nml A/P: 1/ Recurrent pouchitis, recent path consistent with crohns PLAN: 1/ open capsule budesonide 2/ apply for entyvio 3/ check labs incl stool lacto for baseline and to monitor response [facility] Medical History CKD (chronic kidney disease) Colitis Constipation Crohn's disease of both small and large intestine HLD (hyperlipidemia) HTN (hypertension) Opioid use disorder Ulcerative colitis Surgical History H/O cervical spine surgery H/O total colectomy History of colostomy reversal History of esophagogastroduodenoscopy (EGD) Hx of colonoscopy Family History Mother Stroke Diabetes mellitus HTN (hypertension), benign Hyperlipidemia Brother Diabetes mellitus Social History Household Members: None Housing: Apartment Housing Other:: Rents a room Do you presently have visiting nurse or other home services: No Alcohol intake: never Patient Tobacco Use Status: Never used Tobacco e-Cigarette/Vaping Use: Never Used Second Hand Smoke Exposure: No Substance Use Type: Heroin Advance Directives Date on File: 03/08/21 service: No Current occupational status: unemployed Physical Exam Vital Signs: Last Vital Signs Pulse 78 07/24/23 13:53 BP 139/81 07/24/23 13:53 BMI result Body Mass Index 37.8 Assessment & Plan Assessment & Plan (1) Crohn's colitis: Code(s): K50.10 - Crohn's disease of large intestine without complications Orders: Orders Hepatitis A,B,C Profile Today K50.10 - Crohn's disease of large intestine without complications Comprehensive Met. Panel Today K50.10 - Crohn's disease of large intestine without complications, K75.81 - Nonalcoholic steatohepatitis (WEST) Lactoferrin, Fecal, Quant. Today K50.10 - Crohn's disease of large intestine without complications, K51.50 - Left sided colitis without complications CDiff Gene PCR Today K50.10 - Crohn's disease of large intestine without complications Giardia Ag Stool EIA Today K50.10 - Crohn's disease of large intestine without complications Vitamin C Today K50.10 - Crohn's disease of large intestine without complications Vitamin B12 and Folate Today K50.10 - Crohn's disease of large intestine without complications Vitamin B1 Today K50.10 - Crohn's disease of large intestine without complications Vitamin A Today K50.10 - Crohn's disease of large intestine without complications T Spot TB Today K50.10 - Crohn's disease of large intestine without complications Complete Blood Count Auto Diff Today K50.10 - Crohn's disease of large intestine without complications C Reactive Protein Today K50.10 - Crohn's disease of large intestine without complications GI Panel Today K50.10 - Crohn's disease of large intestine without complications, R19.7 - Diarrhea, unspecified Zinc Today K50.10 - Crohn's disease of large intestine without complications Medications: New budesonide ER open capsules and mix with apple sauce 9 mg (3 x 3 mg) PO DAILY 90 ea 1RF Coding Level of Care Code Est Pt Level 4 (60707) Diagnoses Crohn's colitis K50.10
== END 2023-07-24 14:13 | disposition home or self-care (01) ==
PROVIDERS: PCP Internal Medicine; Visit Provider Internal Medicine Gastroenterology
DX: K50.10 Crohn's disease of large intestine without complications (principal)
CPT/HCPCS: 99214

== ENCOUNTER 2023-08-01 11:45 | Outpatient (REF) | payer MEDICAID, SELFPAY ==
[2023-08-01 12:13] LABS: MANUAL DIFF FLAG NO
[2023-08-01 12:53] LABS: Basophils Percent Auto 0.5 % (0-2); Eosinophils Absolute Auto 0.2 X10*3/uL (0.0-0.4); Eosinophils Percent Auto 2.2 % (0-4); Hematocrit 35.4 % (42.0-52.0); Hemoglobin 11.1 g/dl (14.0-18.0); Imm Gran Abs Auto 0.08 X10*3/uL (0.00-0.03); Lymphocytes Absolute Auto 1.9 X10*3/uL (1.2-4.9); Lymphocytes Percent Auto 23.2 % (20-40); Mean Corpuscular HGB Conc 31.4 g/dl (31.0-36.0); Mean Corpuscular Hemoglobin 28.1 pg (27.0-33.0); Mean Corpuscular Volume 89.6 fL (80.0-98.0); Mean Platelet Volume 9.6 fL (9.4-12.4); Monocytes Absolute Auto 0.8 X10*3/uL (0.1-1.2); Neutrophils Absolute Auto 5.2 x10*3/uL (2.0-8.3); Neutrophils Percent Auto 63.1 % (45-73); Platelet Count 219 X10*3/uL (160-400); Red Blood Count 3.95 X10*6/uL (4.60-5.80); Red Cell Distribution Width 14.7 % (11.0-16.0); White Blood Count 8.2 X10*3/uL (4.8-10.8)
[2023-08-01 14:05] LABS: Alanine Aminotransferase 45 U/L (0-40); Albumin Level 3.8 g/dL (3.5-5.0); Alkaline Phosphatase 81 U/L (39-117); Anion Gap 13 (12-20); Aspartate Amino Transferase 34 U/L (5-37); Bilirubin Total 0.2 mg/dL (0.0-1.0); Blood Urea Nitrogen 22 mg/dL (9-16); C Reactive Protein 0.37 mg/dL (< or = 0.50); Calcium 8.6 mg/dL (8.4-10.2); Carbon Dioxide 26 mmol/L (22-29); Chloride 103 mmol/L (96-108); Estimated Glomerular Filt Rate 40; Glucose Random 228 mg/dL (60-115); Potassium 4.5 mmol/L (3.3-5.1); Sodium 137 mmol/L (135-145); Total Protein 7.8 g/dL (6.5-8.0)
[2023-08-01 14:36] LABS: Folate 11.9 ng/mL (> or = 4.0); Vitamin B12 911 pg/mL (200-900)
[2023-08-02 08:54] LABS: HBS Num1 111.74 mIU/mL (0-7.99); HBc Num1 0.94 S/CO (0.00-0.79); Hepatitis A Antibody IgM 0.25 Index (0-0.79); Hepatitis B Surface Antigen Negative (Negative); ~HepC Num1 0.71 S/CO (0.00-0.79); ~Hepatitis A Antibody IgM Nonreactive (Nonreactive); ~Hepatitis B Surface Antibody REACTIVE (Nonreactive); ~Hepatitis C Antibody Nonreactive (Nonreactive)
[2023-08-02 11:04] LABS: HBc Num2 0.13 S/CO; HBc Num3 0.34 S/CO; Hepatitis B Core Antibody Nonreactive (Nonreactive)
[2023-08-03 20:15] LABS: TS Negative Control Passed; TS Panel A 0; TS Panel B 0; TS Positive Control Passed; TSpotTB Negative (Negative)
[2023-08-04 07:13] LABS: Zinc 65 mcg/dL (60-130)
[2023-08-07 00:14] LABS: Vitamin C 0.4 mg/dL (0.2-2.1)
[2023-08-08 05:54] LABS: Vitamin B1 29 nmol/L (8-30)
[2023-08-08 17:14] LABS: Vitamin A 57 mcg/dL (38-98)
== END 2023-08-01 11:46 | disposition home or self-care (01) ==
LOC: HO.LAB 11:45
PROVIDERS: Student in an Organized Health Care Education/Training Program; Visit Provider Internal Medicine Gastroenterology
DX: Z11.1 Encounter for screening for respiratory tuberculosis (principal); K50.10 Crohn's disease of large intestine without complications; K75.81 Nonalcoholic steatohepatitis (NASH)
CPT/HCPCS: 36415; 80053; 82180; 82607; 82746; 84425; 84590; 84630; 85025; 86140; 86481; 86704; 86706; 86709; 86803; 87340

== ENCOUNTER 2023-08-04 15:44 | Outpatient (REF) | payer MEDICAID, SELFPAY ==
[2023-08-04 16:57] LABS: CDiff Gene PCR NEGATIVE (Negative)
[2023-08-05 11:51] LABS: Adenovirus F 40/41 Not Detected (Not Detect.); Astrovirus Not Detected (Not Detect.); Campylobacter Not Detected (Not Detect.); Cryptosporidium Not Detected (Not Detect.); Cyclospora cayetanensis Not Detected (Not Detect.); E. coli EAEC Not Detected (Not Detect.); E. coli EPEC Not Detected (Not Detect.); E. coli ETEC Not Detected (Not Detect.); E. coli STEC Not Detected (Not Detect.); Entamoeba histolytica Not Detected (Not Detect.); Giardia lamblia Not Detected (Not Detect.); Norovirus GI/GII Not Detected (Not Detect.); Plesiomonas shigelloides Not Detected (Not Detect.); Rotavirus A Not Detected (Not Detect.); Salmonella Not Detected (Not Detect.); Sapovirus Not Detected (Not Detect.); Shigella sp./EIEC Not Detected (Not Detect.); Vibrio Not Detected (Not Detect.); Vibrio Cholerae Not Detected (Not Detect.); Yersinia enterocolitica Not Detected (Not Detect.)
[2023-08-12 17:13] LABS: Lactoferrin, Fecal, Quant. 36.29 mcg/mL (<7.25)
== END 2023-08-04 15:45 | disposition home or self-care (01) ==
LOC: HO.LNP 15:44
PROVIDERS: Visit Provider Internal Medicine Gastroenterology
DX: K51.50 Left sided colitis without complications (principal); K50.10 Crohn's disease of large intestine without complications
CPT/HCPCS: 83631; 87329; 87493; 87507

== ENCOUNTER 2023-09-19 13:44 | Outpatient (REF) | payer MEDICAID, SELFPAY | END 2023-09-19 13:45 | disposition home or self-care (01) | LOC: HO.MDS 13:44 | PROVIDERS: Visit Provider Internal Medicine Gastroenterology | DX: K50.10 Crohn's disease of large intestine without complications (principal) | CPT/HCPCS: 96365; J3380 ==

== ENCOUNTER 2023-10-03 12:19 | Outpatient (REF) | payer MEDICAID, SELFPAY | END 2023-10-03 12:20 | disposition home or self-care (01) | LOC: HO.MDS 12:19 | PROVIDERS: Visit Provider Internal Medicine Gastroenterology | DX: K50.10 Crohn's disease of large intestine without complications (principal) | CPT/HCPCS: 96365; J3380 ==

== ENCOUNTER 2023-10-26 23:36 | Emergency (ER) | payer MEDICAID, SELFPAY ==
[2023-10-26 23:51] VITALS: PULSE 120; O2SAT 95; BMI 40.3
[2023-10-27 00:19] VITALS: BP 144/97; PULSE 102; RESP 18; TEMP 36.9; O2SAT 93
--- NOTE | 2023-10-27 00:21 | PC.NURSE ---
security at bedside doing pt post exchange manager- pt belongings in [place]
--- NOTE | 2023-10-27 00:23 | PC.NURSE ---
pt denying drug use at this time. pt denies si/hi.
--- NOTE | 2023-10-27 00:29 | ED_ITS ---
HPI - Overdose General Chief Complaint: ETOH/Substance Use Stated Complaint: ETOH/shortness of breath Time Seen by Provider: 10/27/23 00:19 Source: patient Mode of arrival: EMS Limitations: no limitations History of Present Illness HPI Narrative: Patient with history of cocaine abuse with cocaine outdated reports anxiety shortness of breath initial saturating 95% on 4 L during stay in the ER saturating 93% at room air patient also complaining of chronic diarrhea which is going on for last few months 6 to 7 times a day watery without any significant abdominal cramps also patient has skin lesions on the abdomen or which been coming off and on no fever no chills Related Data Home Medications Medication Instructions Recorded Confirmed felodipine 5 mg tablet,extended 1 tab PO BEDTIME 03/03/21 05/02/23 release 24 hr metoprolol tartrate 50 mg tablet 1 tab PO BID 03/03/21 05/02/23 rosuvastatin 40 mg tablet 1 tab PO BEDTIME 03/03/21 05/02/23 zolpidem 10 mg tablet 1 tab PO BEDTIME 03/03/21 05/02/23 ferrous gluconate 324 mg (38 mg 1 tab PO QAM 06/30/21 05/02/23 iron) tablet lidocaine 5 % topical patch 1 patch topical DAILY 08/20/21 05/02/23 cyanocobalamin (vitamin B-12) 1 tab PO DAILY 07/07/22 05/02/23 1,000 mcg tablet gabapentin 300 mg capsule 300 mg PO TID 02/17/23 05/02/23 methadone 10 mg/mL oral concentrate 44 mg PO DAILY 02/17/23 02/17/23 vancomycin 125 mg capsule 125 mg PO Q6H 07/24/23 Previous Rx's Medication Instructions Recorded budesonide 3 mg 9 mg (3 x 3 mg) PO DAILY #90 caps 09/21/23 capsule,delayed,extended release doxycycline hyclate 100 mg tablet 100 mg PO BID #20 tabs 10/27/23 loperamide 2 mg tablet (Imodium 2 mg PO Q8H PRN loose stool #30 10/27/23 A-D) tabs Allergies Allergy/AdvReac Type Severity Reaction Status Date / Time Iodinated Contrast Media Allergy Intermediate HIVES Verified 10/27/23 00:04 [IV CONTRAST] prednisone [PREDNISONE] Allergy Mild RASH Verified 10/27/23 00:04 Review of Systems Review of Systems: Yes all other systems are reviewed and are negative [facility] Past Medical History Medical History Clostridium difficile carrier Opioid use disorder Constipation Crohn's disease of both small and large intestine CKD (chronic kidney disease) Ulcerative colitis HLD (hyperlipidemia) Colitis HTN (hypertension) Surgical History History of esophagogastroduodenoscopy (EGD) Hx of colonoscopy H/O total colectomy H/O cervical spine surgery History of colostomy reversal Family History Family History Mother Stroke Diabetes mellitus HTN (hypertension), benign Hyperlipidemia Brother Diabetes mellitus Social History Social History Household Members: None Housing: Apartment Housing Other:: Rents a room Do you presently have visiting nurse or other home services: No Alcohol intake: never Patient Tobacco Use Status: Never used Tobacco Smoked in Last 30 Days: No e-Cigarette/Vaping Use: Never Used Second Hand Smoke Exposure: No Use of substances other than those prescribed or required for medical reasons: No Substance Use Type: Heroin Advance Directives: Yes Advance Directives on File: Yes Advance Directives Date on File: 03/08/21 service: No Current occupational status: unemployed Physical Exam Vital Signs: Vital Signs: Last Vital Signs Temp 98.5 F 10/27/23 00:19 Pulse 102 H 10/27/23 00:19 Resp 18 10/27/23 00:19 BP 144/97 H 10/27/23 00:19 Pulse Ox 93 10/27/23 00:19 O2 Del Method Room Air 10/27/23 00:19 BMI result Body Mass Index 40.3 Appearance: Alert. Oriented X3. No acute distress. Eyes: PERRLA, No Nystagmus ENT: Pharynx normal. Oral Mucosa moist Neck: Normal inspection. Neck supple. CVS: Normal heart rate and rhythm. Pulses normal. Respiratory: No respiratory distress. Equal air entry bilateral, no wheezing/rales/rhonchi Abdomen: Soft and nontender. Bowel sounds are present, no mass palpable, no CVA tenderness Skin: Skin warm and dry. Normal skin color. Normal skin turgor. Suspicious skin lesions on the abdominal wall likely MRSA infection Extremities: No lower extremity edema. No calf tenderness Neuro: Oriented X 3. No motor deficit. No sensory deficit.No cerebellar signs , cranial nerves II-XII intact Medical Decision Making Medical Decision Making MDM Narrative: Patient with substance abuse alert oriented x3 at this time does not want any detox at this time discharge patient home Discharge Plan Discharge Clinical Impression: Cocaine abuse, Chronic diarrhea, MRSA (methicillin resistant Staphylococcus aureus) infection Patient Disposition: Home, Self-Care Instructions: MRSA (Methicillin-Resistant Staphylococcus Aureus) (ED), Cocaine Abuse (ED), Chronic Diarrhea (ED) Additional Instructions: You possibly have MRSA infection Take antibiotic as prescribed Imodium for diarrhea as prescribed Stop using cocaine If indeed help follow with detox Prescriptions: New loperamide [Imodium A-D] 2 mg tablet 2 mg PO Q8H PRN (Reason: loose stool) Qty: 30 0RF doxycycline hyclate 100 mg tablet 100 mg PO BID Qty: 20 0RF No Action budesonide 3 mg capsule,delayed,extend.release 9 mg PO DAILY Qty: 90 1RF felodipine 5 mg tablet extended release 24 hr 1 tab PO BEDTIME metoprolol tartrate 50 mg tablet 1 tab PO BID zolpidem 10 mg tablet 1 tab PO BEDTIME rosuvastatin 40 mg tablet 1 tab PO BEDTIME ferrous gluconate 324 mg (38 mg iron) tablet 1 tab PO QAM cyanocobalamin (vitamin B-12) 1,000 mcg tablet 1 tab PO DAILY lidocaine 5 % adhesive patch,medicated 1 patch topical DAILY gabapentin 300 mg capsule 300 mg PO TID methadone 10 mg/mL Concentrate 44 mg PO DAILY vancomycin 125 mg capsule 125 mg PO Q6H
[2023-10-27] MEDS: Doxycycline Monohydrate 100 MG CAPSULE PO (01:19)
[2023-10-27] MEDS: Loperamide HCl 2 MG CAPSULE PO (01:19)
[2023-10-27 01:24] VITALS: PULSE 99; RESP 18; O2SAT 94
== END 2023-10-27 01:24 | disposition home or self-care (01) ==
PROVIDERS: Emergency Provider Internal Medicine
DX: F14.10 Cocaine abuse, uncomplicated (principal); R19.7 Diarrhea, unspecified; A49.02 Methicillin resistant Staphylococcus aureus infection, unspecified site; R06.02 Shortness of breath; Z79.899 Other long term (current) drug therapy
CPT/HCPCS: 99283; 99284

== ENCOUNTER 2023-10-31 11:48 | Outpatient (REF) | payer MEDICAID, SELFPAY | END 2023-10-31 11:49 | disposition home or self-care (01) | LOC: HO.MDS 11:48 | PROVIDERS: Visit Provider Internal Medicine Gastroenterology | DX: K50.10 Crohn's disease of large intestine without complications (principal) | CPT/HCPCS: 96365; J3380 ==

== ENCOUNTER 2023-12-26 | Outpatient (REF) | payer MEDICAID, SELFPAY | END 2023-12-26 00:01 | disposition home or self-care (01) | LOC: HO.MDS | PROVIDERS: Visit Provider Internal Medicine Gastroenterology | DX: K50.10 Crohn's disease of large intestine without complications (principal) | CPT/HCPCS: 96365; J3380 ==

== ENCOUNTER 2024-01-10 12:40 | Emergency (ER) | payer MEDICAID, SELFPAY ==
--- NOTE | 2024-01-10 12:46 | ED.GENADULT ---
HPI - General Adult General Chief complaint: Wound/Laceration Stated complaint: Cyst in Buttock Area Time Seen by Provider: 01/10/24 13:01 Source: patient Mode of arrival: ambulatory Limitations: no limitations History of Present Illness HPI narrative: Patient is a 58 year old male with a history Crohn's disease and OUD, presenting with a 3-4 month history of rectal pain. Patient endorses having hard stools and pain in the area with defecation. Patient also endorses that the site will intermittently leak puss or a clear liquid that causes a burning pain to the surrounding rectal tissue. Patient reports a history of pilonidal cysts that have been drained in the past. MD complaint: Rectal pain Onset (ago): month(s) (3-4 month history) Location: buttocks (entry way to rectal orifice) Radiation: non-radiation Severity: mild Severity scale (1-10): 3 Quality: burning Pain Consistency: intermittent Relieving factors: none Exacerbating factors: none Associated symptoms: denies other symptoms Treatments prior to arrival: none Related Data Home Medications Medication Instructions Recorded Confirmed felodipine 5 mg tablet,extended 1 tab PO BEDTIME 03/03/21 05/02/23 release 24 hr metoprolol tartrate 50 mg tablet 1 tab PO BID 03/03/21 05/02/23 rosuvastatin 40 mg tablet 1 tab PO BEDTIME 03/03/21 05/02/23 zolpidem 10 mg tablet 1 tab PO BEDTIME 03/03/21 05/02/23 ferrous gluconate 324 mg (38 mg 1 tab PO QAM 06/30/21 05/02/23 iron) tablet lidocaine 5 % topical patch 1 patch topical DAILY 08/20/21 05/02/23 cyanocobalamin (vitamin B-12) 1 tab PO DAILY 07/07/22 05/02/23 1,000 mcg tablet gabapentin 300 mg capsule 300 mg PO TID 02/17/23 05/02/23 methadone 10 mg/mL oral concentrate 44 mg PO DAILY 02/17/23 02/17/23 vancomycin 125 mg capsule 125 mg PO Q6H 07/24/23 Previous Rx's Medication Instructions Recorded budesonide 3 mg 9 mg (3 x 3 mg) PO DAILY #90 caps 09/21/23 capsule,delayed,extended release doxycycline hyclate 100 mg tablet 100 mg PO BID #20 tabs 10/27/23 loperamide 2 mg tablet (Imodium 2 mg PO Q8H PRN loose stool #30 10/27/23 A-D) tabs lidocaine HCl 2 % mucosal solution 1.2 ml mucous membrane TID PRN 01/10/24 (Lidocaine Viscous) pain #100 mL pramoxine 1 % topical foam 1 appl VT TID #15 grams 01/10/24 (Proctofoam) Allergies Allergy/AdvReac Type Severity Reaction Status Date / Time Iodinated Contrast Media Allergy Intermediate HIVES Verified 01/10/24 12:47 [IV CONTRAST] prednisone [PREDNISONE] Allergy Mild RASH Verified 01/10/24 12:47 Review of Systems Constitutional: Constitutional: Reports no additional constitutional complaints, Denies chills, Denies fever(s) and Denies night sweats Eyes: Eyes: Reports no additional eye complaints, Denies blurry vision, Denies change in vision, Denies diplopia, Denies eye discharge, Denies loss of vision and Denies eye pain ENT: Denies dizziness Cardiovascular: Cardiovascular: Reports no additional cardiovascular complaints, Denies chest pain, Denies lightheadedness, Denies Loss of Consciousness and Denies dyspnea Respiratory: Respiratory: Reports no additional respiratory complaints and Denies dyspnea Gastrointestinal: Gastrointestinal: Reports no additional gastrointestinal complaints, Denies abdominal pain, Denies melena, Denies hematochezia, Denies change in bowel habits and Denies change in stool character Comments: rectal pain, hard stools Genitourinary: Genitourinary: Reports no additional male genitourinary complaints, Denies hematuria, Denies oliguria, Denies difficulty urinating, Denies dysuria, Denies urinary frequency, Denies urinary hesitancy, Denies urinary incontinence and Denies urinary urgency Musculoskeletal: Musculoskeletal: Reports no additional musculoskeletal complaints, Denies numbness and Denies tingling Neurologic: Denies dizziness, Denies loss of vision, Denies numbness and Denies tingling Psychiatric: Psychiatric: Reports no additional psychiatric complaints Endocrine: Endocrine: Reports no additional endocrine complaints Hematologic/Lymphatic: Hematologic/Lymphatic: Reports no additional hematologic/lymphatic complaints Allergic/Immunologic: Allergic/Immunologic: Reports no additional allergic/immunologic complaints PMFSH Past Medical History Attestation statement: The following information was validated with the patient. Source: old records reviewed and nursing notes reviewed Medical History Clostridium difficile carrier Opioid use disorder Constipation Crohn's disease of both small and large intestine CKD (chronic kidney disease) Ulcerative colitis HLD (hyperlipidemia) Colitis HTN (hypertension) Surgical History History of esophagogastroduodenoscopy (EGD) Hx of colonoscopy H/O total colectomy H/O cervical spine surgery History of colostomy reversal Family History Family History Mother Stroke Diabetes mellitus HTN (hypertension), benign Hyperlipidemia Brother Diabetes mellitus Social History Social History Household Members: None Housing: Apartment Housing Other:: Rents a room Do you presently have visiting nurse or other home services: No Alcohol intake: never Patient Tobacco Use Status: Never used Tobacco e-Cigarette/Vaping Use: Never Used Second Hand Smoke Exposure: No Substance Use Type: Heroin Advance Directives: Yes Advance Directives on File: Yes Advance Directives Date on File: 03/08/21 service: No Current occupational status: unemployed Physical Exam ED Vital Signs: Vital Signs - 24 hr 01/10/24 12:47 Temperature 98 F Pulse Rate 89 Respiratory Rate 19 Blood Pressure 151/108 H Pulse Oximetry 98 Oxygen Delivery Method Room Air BMI result Body Mass Index 31.6 Const General: cooperative, no acute distress, alert and awake Nutritional Appearance: well nourished Orientation/consciousness: patient oriented x3 Limitations: no limitations HENMT Head: Yes normal to inspection and Yes atraumatic Ears: hearing grossly normal bilaterally and external ears normal General nose exam: Normal external nose present, no nasal discharge noted and no epistaxis Face and sinus: Yes normal facial exam, No abrasion and No laceration Mouth: Normal oral and palatal mucosa present, no drooling and no muffled voice Eyes General: appearance normal, both eyes and all related structures Periorbital: periorbital findings normal Eyelids: Yes eyelids normal Conjunctivae: conjunctivae normal Pupils: Equal, round and reactive pupils present EOM: EOMs intact bilaterally Neck Neck: Yes normal visual inspection, Yes full ROM and Yes no lymphadenopathy Chest Chest palpation & inspection: normal inspection of the chest Resp Effort & Inspection: normal respiratory effort and able to speak in complete sentences GI Inspection: Yes normal to inspection Rectal Exam - Male: Yes other (sheering of the skin around the anus) Neuro General: patient oriented x3 and moves all extremities Cranial nerves: Yes Equal, round and reactive pupils present Cognition (Neuro): normal cognition Motor exam (neuro): 5/5 motor strength present throughout Sensory Exam: Normal double simultaneous stimulation for sensation Coordination: [id number] test normal Extrem General: Yes normal to inspection, Yes full ROM and Yes capillary refill normal Psych Appearance: grossly normal Mental Status: mental status grossly normal Affect: normal affect Attitude: cooperative Thought process: Normal thought process present Thought content: Normal thought content present Insight: Good insight present (Psych) Course Course Course Narrative: This is a rapid medical exam: Additional HPI, ROS, PE not included below will be deferred to primary provider. Patient is a 58-year-old Armenian speaking male with history of Crohn's colitis presenting to the ED with complaint of area on left side of anus draining purulent/bloody fluid for 3-4 months. Denies fevers. Area not visualized in triage due to privacy concerns. Plan: labs Medical Decision Making Medical Decision Making MDM Narrative: Patient is a 58 year old assigned male at with a history of crohn's disease and OUD presenting to the emergency department today with anal pain. Patient's physical exam showed sheering of the skin around the anus with no evidence of fluctuance or infection. I explained my physical exam findings to the patient. I answered all questions asked by the patient. I stressed the importance of the patient taking his medication as prescribed. I stressed the importance of the patient following up with his primary care provider and GI Specailist. I stressed the importance of the patient returning to the emergency department immediately if his symptoms were to worsen or if he were to develop any dizziness, shortness of breath, difficulty breathing, chest pain, blurry vision, loss of vision, nausea, vomiting, abdominal pain, fever, chills, back pain, or any other complaints. Patient verbalized agreement and understanding with this treatment plan and discharge. Differential Diagnosis Differential Diagnoses: The differential diagnosis associated with the presentation includes Rectal pain Anal pain Abrasion Admission/Observation Consideration of admission/observation: Escalation of care including admission/observation considered Patient would have been admitted to the hospital had his clinical presentation warranted hospital admission. Discharge Plan Discharge Clinical Impression: Anal pain Patient Disposition: Home, Self-Care Instructions: Rectal Pain (ED) Additional Instructions: Follow up with your primary care provider and GI specialist. Return to the emergency department immediately if your symptoms worsen or if you develop any dizziness, shortness of breath, difficulty breathing, chest pain, blurry vision, loss of vision, nausea, vomiting, abdominal pain, fever, chills, back pain, or any other complaints. Prescriptions: New pramoxine [Proctofoam] 1 % foam 1 appl VT TID Qty: 15 0RF lidocaine HCl [Lidocaine Viscous] 2 % solution 1.2 ml mucous membrane TID PRN (Reason: pain) Qty: 100 0RF Rx Instructions: Apply to the outside of the anus for pain. No Action budesonide 3 mg capsule,delayed,extend.release 9 mg PO DAILY Qty: 90 1RF felodipine 5 mg tablet extended release 24 hr 1 tab PO BEDTIME metoprolol tartrate 50 mg tablet 1 tab PO BID zolpidem 10 mg tablet 1 tab PO BEDTIME rosuvastatin 40 mg tablet 1 tab PO BEDTIME ferrous gluconate 324 mg (38 mg iron) tablet 1 tab PO QAM cyanocobalamin (vitamin B-12) 1,000 mcg tablet 1 tab PO DAILY lidocaine 5 % adhesive patch,medicated 1 patch topical DAILY gabapentin 300 mg capsule 300 mg PO TID methadone 10 mg/mL Concentrate 44 mg PO DAILY loperamide [Imodium A-D] 2 mg tablet 2 mg PO Q8H PRN (Reason: loose stool) Qty: 30 0RF doxycycline hyclate 100 mg tablet 100 mg PO BID Qty: 20 0RF vancomycin 125 mg capsule 125 mg PO Q6H Referrals: [facility] [Primary Care Provider] - Print Language: Armenian
[2024-01-10 12:47] VITALS: BP 151/108; PULSE 89; RESP 19; TEMP 36.6; O2SAT 98; BMI 31.6
== END 2024-01-10 13:45 | disposition home or self-care (01) ==
PROVIDERS: Emergency Provider Emergency Medicine
DX: K62.89 Other specified diseases of anus and rectum (principal); K50.90 Crohn's disease, unspecified, without complications; I12.9 Hypertensive chronic kidney disease with stage 1 through stage 4 chronic kidney disease, or unspecified chronic kidney disease; N18.9 Chronic kidney disease, unspecified; F11.90 Opioid use, unspecified, uncomplicated
CPT/HCPCS: 99281

== ENCOUNTER 2024-05-13 09:02 | Outpatient (REF) | payer MEDICAID, SELFPAY ==
[2024-05-13 11:46] LABS: MANUAL DIFF FLAG NO
[2024-05-13 12:01] LABS: Basophils Percent Auto 0.4 % (0-2); Eosinophils Absolute Auto 0.1 X10*3/uL (0.0-0.4); Eosinophils Percent Auto 1.5 % (0-4); Hemoglobin 14.4 g/dl (14.0-18.0); Imm Gran Abs Auto 0.03 X10*3/uL (0.00-0.03); Imm Gran Pct Auto 0.3 % (0.0-0.4); Lymphocytes Percent Auto 22.3 % (20-40); Mean Corpuscular Volume 90.5 fL (80.0-98.0); Mean Platelet Volume 10.7 fL (9.4-12.4); Monocytes Absolute Auto 0.6 X10*3/uL (0.1-1.2); Neutrophils Absolute Auto 6.2 x10*3/uL (2.0-8.3); Neutrophils Percent Auto 68.5 % (45-73); Platelet Count 263 X10*3/uL (160-400); Red Blood Count 4.97 X10*6/uL (4.60-5.80); Red Cell Distribution Width 14.2 % (11.0-16.0); White Blood Count 9.1 X10*3/uL (4.8-10.8)
[2024-05-13 12:12] LABS: Estimated Average Glucose 123 mg/dL; Hemoglobin A1c % 5.9 % (<6.0)
[2024-05-13 12:27] LABS: Alanine Aminotransferase 21 U/L (0-40); Albumin Level 4.4 g/dL (3.5-5.0); Alkaline Phosphatase 75 U/L (39-117); Anion Gap 16 (12-20); Aspartate Amino Transferase 27 U/L (5-37); Bilirubin Direct 0.1 mg/dL (0.0-0.5); Bilirubin Total 0.3 mg/dL (0.0-1.0); Blood Urea Nitrogen 21 mg/dL (9-16); Calcium 10.1 mg/dL (8.4-10.2); Carbon Dioxide 23 mmol/L (22-29); Chloride 106 mmol/L (96-108); Cholesterol 320 mg/dL (<200); Estimated Glomerular Filt Rate 24; Glucose Random 101 mg/dL (60-115); HDL Cholesterol 35 mg/dL (>40); LDL Cholesterol Calculated 223 mg/dL (<100); Potassium 3.8 mmol/L (3.3-5.1); Sodium 141 mmol/L (135-145); Total Protein 9.2 g/dL (6.5-8.0); Triglycerides 310 mg/dL (<150)
[2024-05-13 12:36] LABS: TSH reflex Free T4 2.37 uIU/mL (0.32-4.0)
[2024-05-13 12:43] LABS: ~HepC Num1 0.61 S/CO (0.00-0.79); ~Hepatitis C Antibody Nonreactive (Nonreactive)
[2024-05-16 16:54] LABS: HIV RNA PCR Qn Copies Not Detected Copies/mL; HIV RNA PCR Qn Log Copies Not Detected Log cps/mL
== END 2024-05-13 09:03 | disposition home or self-care (01) ==
LOC: HO.HHCL 09:02
PROVIDERS: Visit Provider Internal Medicine
DX: Z00.00 Encounter for general adult medical examination without abnormal findings (principal)
CPT/HCPCS: 36415; 80048; 80061; 80076; 83036; 84443; 85025; 86803; 87536; 87900

== ENCOUNTER 2024-09-06 11:59 | Outpatient (REF) | payer MEDICAID, SELFPAY ==
[2024-09-09 18:14] LABS: TS Negative Control Passed; TS Panel A 0; TS Panel B 0; TS Positive Control Passed; TSpotTB Negative (Negative)
== END 2024-09-06 12:00 | disposition home or self-care (01) ==
LOC: HO.LAB 11:59
PROVIDERS: PCP Internal Medicine; Visit Provider Internal Medicine
DX: Z11.1 Encounter for screening for respiratory tuberculosis (principal)
CPT/HCPCS: 36415; 86481

== ENCOUNTER 2024-09-24 09:47 | Emergency (ER) | payer MEDICAID, SELFPAY ==
--- NOTE | ~2024-09-24 | XR_ITS ---
EXAMINATION: XR CHEST CLINICAL INFORMATION: Cough COMPARISON: 05/23/2020. 03/13/2020. TECHNIQUE: Frontal view of the chest was obtained. FINDINGS: The cardiac, hilar, and mediastinal contours are normal. There is opacity in the superior segment left lower lobe as well as the lateral and basal regions. Findings are highly suspicious for pneumonia. Cannot exclude underlying mass given the appearance. Probable small left effusion, likely parapneumonic. Right lung is clear. 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 No suspicious bony abnormalities. XR/XR chest 1V IMPRESSION: 1. Opacity in the superior segment left lower lobe with associated small effusion highly suspicious for left lower lobe pneumonia with a small parapneumonic effusion. Cannot definitively exclude mass given the appearance of the left perihilar abnormality, and would correlate with patient's clinical presentation. 2. 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 Electronically signed by: Rojelio Julien MD 09/24/2024 10:44 AM [facility]
[2024-09-24 10:14] VITALS: BP 159/91; PULSE 98; RESP 18; TEMP 37.4; O2SAT 91; BMI 33.2
[2024-09-24 11:11] LABS: Influenza A PCR NEGATIVE (Negative); Influenza B PCR NEGATIVE (Negative); Resp Syncy Virus RNA Qual PCR NEGATIVE (Negative); SARS COV2 PCR INHOUSE NEGATIVE (Negative)
[2024-09-24 18:52] VITALS: BP 140/84; PULSE 96; RESP 16; TEMP 36.4; O2SAT 94
--- NOTE | 2024-09-24 19:48 | ED_ITS ---
HPI - General Adult General Chief complaint: Upper Respiratory Symptoms Stated complaint: coughing green stuff Time Seen by Provider: 09/24/24 19:00 History of Present Illness HPI narrative: Patient complains of 3 days of productive cough with green sputum and frequent cough, possible fever for 1 day no shortness of breath no chest pain no nausea vomiting or diarrhea no fainting no feeling faint no sore throat, he is eating and drinking normally, no history of smoking He has no nausea vomiting or diarrhea, he does have a mild runny nose, he has a mild intermittent frontal headache but no stiff neck no abrupt onset headache, no confusion no loss of balance no weakness no changes to bowel or bladder Related Data Home Medications ?Medication ?Instructions ?Recorded ?Confirmed felodipine 5 mg tablet,extended 1 tab PO BEDTIME 03/03/21 05/02/23 release 24 hr metoprolol tartrate 50 mg tablet 1 tab PO BID 03/03/21 05/02/23 rosuvastatin 40 mg tablet 1 tab PO BEDTIME 03/03/21 05/02/23 zolpidem 10 mg tablet 1 tab PO BEDTIME 03/03/21 05/02/23 ferrous gluconate 324 mg (38 mg 1 tab PO QAM 06/30/21 05/02/23 iron) tablet lidocaine 5 % topical patch 1 patch topical DAILY 08/20/21 05/02/23 cyanocobalamin (vitamin B-12) 1 tab PO DAILY 07/07/22 05/02/23 1,000 mcg tablet gabapentin 300 mg capsule 300 mg PO TID 02/17/23 05/02/23 methadone 10 mg/mL oral concentrate 44 mg PO DAILY 02/17/23 02/17/23 vancomycin 125 mg capsule 125 mg PO Q6H 07/24/23 Previous Rx's ?Medication ?Instructions ?Recorded budesonide 3 mg 9 mg (3 x 3 mg) PO DAILY #90 caps 09/21/23 capsule,delayed,extended release doxycycline hyclate 100 mg tablet 100 mg PO BID #20 tabs 10/27/23 loperamide 2 mg tablet (Imodium 2 mg PO Q8H PRN loose stool #30 10/27/23 A-D) tabs lidocaine HCl 2 % mucosal solution 1.2 ml mucous membrane TID PRN 01/10/24 (Lidocaine Viscous) pain #100 mL pramoxine 1 % topical foam 1 appl TX TID #15 grams 01/10/24 (Proctofoam) amoxicillin 875 mg-potassium 1 tab PO BID #20 tabs 09/24/24 clavulanate 125 mg tablet doxycycline hyclate 100 mg tablet 100 mg PO BID 10 days #20 tabs 09/24/24 Allergies Allergy/AdvReac Type Severity Reaction Status Date / Time Iodinated Contrast Media Allergy Intermediate HIVES Verified 09/24/24 10:15 [IV CONTRAST] prednisone [PREDNISONE] Allergy Mild RASH Verified 09/24/24 10:15 PMF Past Medical History Source: nursing notes reviewed Medical History Clostridium difficile carrier Opioid use disorder Constipation Crohn's disease of both small and large intestine CKD (chronic kidney disease) Ulcerative colitis HLD (hyperlipidemia) Colitis HTN (hypertension) Surgical History History of esophagogastroduodenoscopy (EGD) Hx of colonoscopy H/O total colectomy H/O cervical spine surgery History of colostomy reversal Family History Family History Mother Stroke Diabetes mellitus HTN (hypertension), benign Hyperlipidemia Brother Diabetes mellitus Social History Social History Household Members: None Housing: Apartment Housing Other:: Rents a room Do you presently have visiting nurse or other home services: No Alcohol intake: never Patient Tobacco Use Status: Never used Tobacco e-Cigarette/Vaping Use: Never Used Second Hand Smoke Exposure: No Substance Use Type: Heroin Advance Directives: Yes Advance Directives on File: Yes Advance Directives Date on File: 03/08/21 Do you have a plan to hurt others: No Plan service: No Current occupational status: unemployed Physical Exam ED Vital Signs: Vital Signs - 24 hr 09/24/24 10:14 09/24/24 18:52 09/24/24 19:56 Temperature 99.4 F 97.6 F 97.8 F Pulse Rate 98 96 91 Respiratory Rate 18 16 16 Blood Pressure 159/91 H 140/84 H 148/78 H Pulse Oximetry 91 L 94 92 Oxygen Delivery Method Room Air Room Air Room Air 09/24/24 20:15 Temperature 97.8 F Pulse Rate 91 Respiratory Rate 16 Blood Pressure 148/78 H Pulse Oximetry 92 Oxygen Delivery Method Room Air BMI result Body Mass Index 33.2 O2 sat of 92% is noted, over the course of the visit it waned between 91% to 94% with no complaint of difficulty breathing or respiratory distress General appearance comfortable no distress speaking full sentences The sinuses are nontender The pharynx is clear without redness swelling or exudate, membranes are moist, voice is normal The neck is supple The chest is clear to auscultation bilateral no wheezing The heart no murmur Abdomen is soft and nontender Extremities full range of motion x4, no edema no calf tenderness or swelling Neuro gait and balance are normal, comprehension and expression are normal, motor is 5/5 x4, cranial nerves 2-12 intact as tested Course Course Course Narrative: Patient had chest x-ray which showed opacity in the superior segment of the left lower lobe as well as the lateral and basal regions, findings highly suspicious for pneumonia but can not exclude underlying mass given the appearance as well as a possible small left effusion likely from the pneumonia Patient has good follow-up with primary care and he is informed he will need a repeat x-ray to make sure that as pneumonia gets better the spot is cleared and he understood this, he is otherwise well-appearing breathing comfortably speaking full sentences no respiratory distress His O2 sat fluctuated between 91 and 94% throughout the visit with a respiratory rate around 18-20 with no subjective feeling of shortness of breath, no respiratory distress I observed him being tested as he walked to see if he developed respiratory distress or significant drop in his oxygen saturation and he walked up and down the [place] with the O2 sat remaining comfortably within 91 and 93, he did not develop any shortness of breath with walking and felt very safe to go home and wanted to go home Patient is discharged diagnosis pneumonia COVID and flu testing were negative Medications Administered Discontinued Medications Generic Name Dose Route Start Last Admin Trade Name Freq PRN Reason Stop Dose Admin Amoxicillin/Clavulanate Potassium 875 mg 09/24/24 19:52 09/24/24 19:57 Amoxicillin/Potassium Clav 875 Mg Tablet PO 09/24/24 19:53 875 mg ONCE ONE Administration Doxycycline Monohydrate 100 mg 09/24/24 19:52 09/24/24 19:57 Doxycycline Monohydrate 100 Mg Capsule PO 09/24/24 19:53 100 mg ONCE ONE Administration Medical Decision Making Lab Data Labs: Lab Results 09/24/24 Range/Units 10:25 Influenza Type A (PCR) NEGATIVE (Negative) Influenza Type B (PCR) NEGATIVE (Negative) RSV RNA Qual (PCR) NEGATIVE (Negative) SARS-CoV-2 RNA (RT-PCR) NEGATIVE (Negative) Discharge Plan Discharge Clinical Impression: Pneumonia Patient Disposition: Home, Self-Care Additional Instructions: X-ray showed a likely pneumonia, but radiologist recommended repeat imaging to make sure the spot clears and to confirm there is no underlying malignancy or cancer So call primary doctor and make an appointment for several weeks and he will order a follow-up x-ray Return to the ER at any time for difficulty breathing feeling faint chest pain any worse condition or any concerns Make sure to take full course of antibiotics Prescriptions: New doxycycline hyclate 100 mg tablet 100 mg PO BID 10 Days Qty: 20 0RF amoxicillin-pot clavulanate 875-125 mg tablet 1 tab PO BID Qty: 20 0RF No Action budesonide 3 mg capsule,delayed,extend.release 9 mg PO DAILY Qty: 90 1RF felodipine 5 mg tablet extended release 24 hr 1 tab PO BEDTIME metoprolol tartrate 50 mg tablet 1 tab PO BID zolpidem 10 mg tablet 1 tab PO BEDTIME rosuvastatin 40 mg tablet 1 tab PO BEDTIME ferrous gluconate 324 mg (38 mg iron) tablet 1 tab PO QAM cyanocobalamin (vitamin B-12) 1,000 mcg tablet 1 tab PO DAILY lidocaine 5 % adhesive patch,medicated 1 patch topical DAILY gabapentin 300 mg capsule 300 mg PO TID methadone 10 mg/mL Concentrate 44 mg PO DAILY pramoxine [Proctofoam] 1 % foam 1 appl TX TID Qty: 15 0RF lidocaine HCl [Lidocaine Viscous] 2 % solution 1.2 ml mucous membrane TID PRN (Reason: pain) Qty: 100 0RF Rx Instructions: Apply to the outside of the anus for pain. loperamide [Imodium A-D] 2 mg tablet 2 mg PO Q8H PRN (Reason: loose stool) Qty: 30 0RF doxycycline hyclate 100 mg tablet 100 mg PO BID Qty: 20 0RF vancomycin 125 mg capsule 125 mg PO Q6H Interventions: ED Discharge Assessment Last Done: 09/24/24 20:15 Print Language: [place]
[2024-09-24 19:56] VITALS: BP 148/78; PULSE 91; RESP 16; TEMP 36.6; O2SAT 92
[2024-09-24] MEDS: Doxycycline Monohydrate 100 MG CAPSULE PO (19:57)
[2024-09-24] MEDS: Amoxicillin/Potassium Clav 875 MG TABLET PO (19:57)
[2024-09-24 20:15] VITALS: BP 148/78; PULSE 91; RESP 16; TEMP 36.6; O2SAT 92
== END 2024-09-24 20:21 | disposition home or self-care (01) ==
PROVIDERS: Emergency Provider Emergency Medicine; PCP Internal Medicine
DX: J18.9 Pneumonia, unspecified organism (principal); R05.9 Cough, unspecified; R50.9 Fever, unspecified; R51.9 Headache, unspecified; I12.9 Hypertensive chronic kidney disease with stage 1 through stage 4 chronic kidney disease, or unspecified chronic kidney disease; N18.9 Chronic kidney disease, unspecified; K50.90 Crohn's disease, unspecified, without complications; Z79.899 Other long term (current) drug therapy
CPT/HCPCS: 0241U; 71045; 99283

== ENCOUNTER → 2024-09-24 10:28 | Outpatient (BNV) | payer MEDICAID, SELFPAY | PROVIDERS: PCP Internal Medicine; Visit Provider Radiology Diagnostic Radiology | DX: R05.9 Cough, unspecified (principal) | CPT/HCPCS: 71045 ==

== ENCOUNTER 2024-10-17 09:50 | Outpatient (REF) | payer MEDICAID, SELFPAY ==
--- NOTE | ~2024-10-17 | XR_ITS ---
EXAMINATION: XR CHEST CLINICAL INFORMATION: Cough. COMPARISON: Chest radiograph dated 09/24/2024. TECHNIQUE: 2 views of the chest were obtained. FINDINGS: Left perihilar and basilar opacities, unchanged which may represent atelectasis versus scarring. An underlying lesion cannot be excluded. No new or increasing airspace consolidation. No pleural effusion or pneumothorax. Stable cardiomediastinal silhouette. XR/XR chest 2V IMPRESSION: 1. Left perihilar and basilar opacities, unchanged which may represent atelectasis versus scarring. An underlying lesion cannot be excluded. 2. No new or increasing airspace consolidation. Electronically signed by: Alexis Kiran MD 10/17/2024 03:04 PM [facility] [place]
== END 2024-10-17 09:51 | disposition home or self-care (01) ==
LOC: HO.HHCX 09:50
PROVIDERS: Visit Provider General Practice
DX: Z87.01 Personal history of pneumonia (recurrent) (principal); R05.9 Cough, unspecified
CPT/HCPCS: 71046

== ENCOUNTER 2024-11-01 08:56 | Outpatient (AMB) | payer MEDICAID, SELFPAY ==
[2024-11-01 09:28] VITALS: BP 134/84; PULSE 92; BMI 35.7
--- NOTE | 2024-11-01 09:28 | A.OFFVIS_ITS ---
Vital Signs 11/01/24 09:28 Height 5 ft 9 in Weight 242 lb BMI 35.7 BP 134/84 Blood Pressure Location Lt brachial Position Sitting Pulse 92 Intake Visit Reasons: f/u crohns Intake Note: Patient in office today in follow up of Cron's and lab results. CC: Patient reports that he wakes up 6-7 times at night to go to the bathroom and has loose stools. He c/o lower abdominal pain and a lot of gas. [employer] Required: Yes [employer] Language: Hebrew Allergies Iodinated Contrast Media [IV CONTRAST] Allergy (Intermediate, Verified 11/01/24 09:32) HIVES prednisone [PREDNISONE] Allergy (Mild, Verified 11/01/24 09:32) RASH HPI HPI f/u crohns: Details: 58 yr old m here for f/u RECAP: I last saw him 07/2021 He had been having numerous diarrheal stools for 1-2 weeks associated with RLQ discomfort and cramps. Blood noted on wiping, but not in the toilet. He was on asacol for his crohns disease He was given Rocephin, Flagyl, IV fluid and pain medicine and his sx improved with in patient treatment Abdominal CT reported by radiologist as showing colitis to the remaining sigmoid colon without any abscess or fluid collection. Colonoscopy: 01/2020 appeared to have a pouch without any sigmoid colon a s noted in the CT scan, the bx of small bowel were normal, as were the pouch. There did appear to be inflammation around ileo anal area but bx were ok. I gave him cipro at the time and anti fungal cream due to maceration of anal skin due to diarrhea. He had repeat admission for diarrhea and treated for pouchitis 06/2021--wiht Ct revealing mild bowel wall thickening and stranding in pelvis. He went to Ed again for abdo pain and nausea and was givne ABx again He was admitted with suspected SBO vs pouchitis 04/2023 and had pouchoscopy done by Dr Lazcano with possible fistula noted and tight J pouch needed dilation --Bx revealed chronic ileocolitis INTERIM: he has been on entyvio for 6 months or so he has diarrhea 4-6 times a day and abdominal pain same as before, no nausea no vomiting no fevers no joint pains no longer smoking and taking drugs EXAM: GENERAL: The patient is well developed and nontoxic. VITAL SIGNS:see workflow HEENT: Nonicteric sclerae, PERRLA, EOMI. Oropharynx clear. Moist mucous membranes. Conjunctivae appear well perfused. No thyroid mass. CHEST: Chest wall is nontender. HEART: Regular rate and rhythm without murmurs. LUNGS: Clear to auscultation bilaterally. ABDOMEN: Soft, positive bowel sounds, nontender, no organomegaly.no flank tenderness SKIN: No rash, no excessive bruising, petechiae, or purpura. NEUROLOGIC: Cranial nerves II-XII intact without motor/sensory deficit. Psych: nml A/P: 1/ Recurrent pouchitis, recent path consistent with crohns--on entyvio now, he actually looks much better, might have irritable pouch PLAN: 1/ recheck fecal lactoferrin, c diff, GI panle-- depedning on that will decide on further w/u- with CT or pouchoscopy [facility] Medical History Clostridium difficile carrier Opioid use disorder Constipation Crohn's disease of both small and large intestine CKD (chronic kidney disease) Ulcerative colitis HLD (hyperlipidemia) Colitis HTN (hypertension) Surgical History History of esophagogastroduodenoscopy (EGD) Hx of colonoscopy H/O total colectomy H/O cervical spine surgery History of colostomy reversal Family History Mother Stroke Diabetes mellitus HTN (hypertension), benign Hyperlipidemia Brother Diabetes mellitus Social History Household Members: None Housing: Apartment Housing Other:: Rents a room Do you presently have visiting nurse or other home services: No Alcohol intake: never Patient Tobacco Use Status: Never used Tobacco e-Cigarette/Vaping Use: Never Used Second Hand Smoke Exposure: No Substance Use Type: Heroin Advance Directives Date on File: 03/08/21 service: No Current occupational status: unemployed Physical Exam Vital Signs: Last Vital Signs Pulse 92 11/01/24 09:28 BP 134/84 11/01/24 09:28 BMI result Body Mass Index 35.7 Assessment & Plan Assessment & Plan (1) Crohn's colitis: Code(s): K50.10 - Crohn's disease of large intestine without complications Category: Medical Plan: see above Orders: Orders Lactoferrin, Fecal, Quant. Today K51.50 - Left sided colitis without comp lications CDiff Gene PCR Today R19.7 - Diarrhea, unspecified GI Panel Today R19.7 - Diarrhea, unspecified Coding Level of Care Code Est Pt Level 3 (15461) Diagnoses Crohn's colitis K50.10
== END 2024-11-01 10:49 | disposition home or self-care (01) ==
PROVIDERS: Visit Provider Internal Medicine Gastroenterology
DX: K50.10 Crohn's disease of large intestine without complications (principal)
CPT/HCPCS: 99213

== ENCOUNTER → 2024-11-01 08:56 | Outpatient (BNVA) | payer MEDICAID, SELFPAY | PROVIDERS: Visit Provider Internal Medicine Gastroenterology | DX: K50.10 Crohn's disease of large intestine without complications (principal) | CPT/HCPCS: 99212 ==

== ENCOUNTER 2024-11-11 13:46 | Outpatient (REF) | payer MEDICAID, SELFPAY ==
[2024-11-11 15:37] LABS: Adenovirus F 40/41 Not Detected (Not Detect.); Astrovirus Not Detected (Not Detect.); Campylobacter Not Detected (Not Detect.); Cryptosporidium Not Detected (Not Detect.); Cyclospora cayetanensis Not Detected (Not Detect.); E. coli EAEC Not Detected (Not Detect.); E. coli EPEC Not Detected (Not Detect.); E. coli ETEC Not Detected (Not Detect.); E. coli STEC Not Detected (Not Detect.); Entamoeba histolytica Not Detected (Not Detect.); Giardia lamblia Not Detected (Not Detect.); Norovirus GI/GII Not Detected (Not Detect.); Plesiomonas shigelloides Not Detected (Not Detect.); Rotavirus A Not Detected (Not Detect.); Salmonella Not Detected (Not Detect.); Sapovirus Not Detected (Not Detect.); Shigella sp./EIEC Not Detected (Not Detect.); Vibrio Not Detected (Not Detect.); Vibrio Cholerae Not Detected (Not Detect.); Yersinia enterocolitica Not Detected (Not Detect.)
== END 2024-11-11 13:47 | disposition home or self-care (01) ==
LOC: HO.LNP 13:46
PROVIDERS: Visit Provider Internal Medicine Gastroenterology
DX: R19.7 Diarrhea, unspecified (principal)
CPT/HCPCS: 87507

== ENCOUNTER 2024-11-12 13:18 | Outpatient (REF) | payer MEDICAID, SELFPAY ==
[2024-11-12 14:43] LABS: CDiff Gene PCR NEGATIVE (Negative)
[2024-11-16 13:43] LABS: Lactoferrin, Fecal, Quant. 20.35 mcg/mL (<7.25)
== END 2024-11-12 13:19 | disposition home or self-care (01) ==
LOC: HO.LNP 13:18
PROVIDERS: Visit Provider Internal Medicine Gastroenterology
DX: K51.50 Left sided colitis without complications (principal); R19.7 Diarrhea, unspecified
CPT/HCPCS: 83631; 87493

== ENCOUNTER 2024-12-23 10:00 | Outpatient (RCR) | payer MEDICAID, SELFPAY ==
[2024-03-05 10:53] VITALS: BP 144/85; PULSE 81; RESP 20; TEMP 36.9; O2SAT 98
[2024-03-05] MEDS: 0.9 % Sodium Chloride Flush 10 ML SYRINGE 5 ML IVFLUSH (11:04)
[2024-03-05] MEDS: Vedolizumab 300 MG in 0.9 % Sodium Chloride 250 ML 510 MG IV (12:05)
[2024-03-05 12:11] VITALS: BP 156/78; PULSE 72; RESP 16; TEMP 37.1; O2SAT 97
[2024-05-02 13:50] VITALS: BP 117/56; PULSE 63; RESP 16; TEMP 36.9; O2SAT 94
[2024-05-02] MEDS: Vedolizumab 300 MG in 0.9 % Sodium Chloride 250 ML 510 MG IV (15:13)
[2024-05-02] MEDS: 0.9 % Sodium Chloride Flush 10 ML SYRINGE 5 ML IVFLUSH (15:44)
[2024-05-24 11:10] VITALS: BP 155/72; PULSE 63; RESP 18; TEMP 36.6
[2024-05-24] MEDS: Vedolizumab 300 MG in 0.9 % Sodium Chloride 250 ML 510 MG IV (12:07)
[2024-05-24] MEDS: Acetaminophen 325 MG TABLET 650 MG PO (12:12)
[2024-07-08 10:15] VITALS: BP 135/68; PULSE 64; RESP 16; TEMP 36.6; O2SAT 96
[2024-07-08] MEDS: Acetaminophen 325 MG TABLET 650 MG PO (10:20)
[2024-07-08] MEDS: Vedolizumab 300 MG in 0.9 % Sodium Chloride 250 ML 510 MG IV (11:24)
[2024-07-08] MEDS: 0.9 % Sodium Chloride Flush 10 ML SYRINGE 5 ML IVFLUSH (12:02)
[2024-09-02 09:44] VITALS: BP 173/85; PULSE 54; RESP 14; TEMP 36.4; O2SAT 87
[2024-09-02] MEDS: Vedolizumab 300 MG in 0.9 % Sodium Chloride 250 ML 510 MG IV (10:34)
[2024-09-02] MEDS: 0.9 % Sodium Chloride Flush 10 ML SYRINGE 5 ML IVFLUSH (11:24)
[2024-10-28 10:32] VITALS: BP 169/85; PULSE 98; RESP 16; TEMP 36.8; O2SAT 94
[2024-10-28] MEDS: Vedolizumab 300 MG in 0.9 % Sodium Chloride 250 ML 510 MG IV (11:18)
[2024-12-23 08:57] VITALS: BP 144/68; PULSE 74; RESP 20; TEMP 37.2; O2SAT 96
[2024-12-23] MEDS: Vedolizumab 300 MG in 0.9 % Sodium Chloride 250 ML 510 MG IV (09:57)
[2024-12-23] MEDS: 0.9 % Sodium Chloride Flush 10 ML SYRINGE 5 ML IVFLUSH (10:34)
== END 2025-01-06 14:41 | disposition home or self-care (01) ==
LOC: HO.INF 10:00
PROVIDERS: Visit Provider Internal Medicine Gastroenterology
DX: K50.10 Crohn's disease of large intestine without complications (principal)
CPT/HCPCS: 36415; 80280; 82542; 96365; J3380

== ENCOUNTER 2025-01-13 08:58 | Outpatient (RCR) | payer MEDICAID, SELFPAY ==
[2025-01-13 09:09] VITALS: BP 99/56; PULSE 69; RESP 16; TEMP 36.6; O2SAT 94
[2025-01-13] MEDS: Ustekinumab 520 MG in 0.9 % Sodium Chloride 146 ML 250 MG IV (09:58)
== END 2025-01-13 11:09 | disposition home or self-care (01) ==
LOC: HO.INF 08:58
PROVIDERS: Visit Provider Internal Medicine Gastroenterology
DX: K50.10 Crohn's disease of large intestine without complications (principal)
CPT/HCPCS: 96365; J3358

== ENCOUNTER 2025-05-07 11:41 | Inpatient (IN) | payer MEDICAID, SELFPAY ==
--- NOTE | ~2025-05-07 | XR_ITS ---
EXAMINATION: XR CHEST CLINICAL INFORMATION: cough, CP COMPARISON: 10/17/2024, 09/24/2024. TECHNIQUE: PA view of the chest was obtained. FINDINGS: The cardiac, hilar, and mediastinal contours are normal. Mild aortic calcifications. Lungs demonstrate subtle increased bibasilar opacities. Mid and upper lungs clear. No pneumothorax or effusion. No focal osseous or soft tissue abnormality. There are degenerative changes in the spine and involving the right greater than left shoulder joints. XR/XR chest 1V IMPRESSION: Subtly increased bibasilar opacities suspicious for bibasilar pneumonia in the appropriate clinical setting. Electronically signed by: Rojelio Julien MD 05/07/2025 12:10 PM EDT
--- NOTE | ~2025-05-07 | CT_ITS ---
EXAMINATION: CT CHEST WITHOUT IV CONTRAST INDICATION: PNA COMPARISON: Correlation is made with an AP portable view of the chest dated 05/07/2025. TECHNIQUE: Helical CT scan of the chest was performed without intravenous contrast. Coronal and sagittal reformatted images were generated and reviewed. This CT exam was performed with one or more of the following dose reduction techniques: automated exposure control, adjustment of the mA and/or kV according to patient size, use of iterative reconstruction technique. DLP: 304 mGy-cm CHEST: THYROID: The thyroid is unremarkable. LUNGS: There is bronchial wall thickening in both lower lobes with associated patchy airspace opacities, consistent with pneumonia. The upper lobes are clear. MEDIASTINUM: There are subcentimeter paratracheal and AP window lymph nodes. MARGUERITE: Evaluation of the hilar regions is limited by lack of intravenous contrast material. CARDIOVASCULATURE: The heart is normal in size. There is no pericardial effusion. The thoracic aorta is normal in caliber. DEGREE OF CORONARY CALCIFICATION: moderate PLEURA: There is no pleural effusion. No pneumothorax. AXILLA: There is no axillary lymphadenopathy. BONES AND SOFT TISSUES: There is degenerative disc disease of the spine. UPPER ABDOMEN: The visualized portions of the liver, spleen, and adrenals have an unremarkable unenhanced appearance. CT/CT chest wo IV con IMPRESSION: Bronchial wall thickening in both lower lobes with associated patchy airspace opacities, compatible with pneumonia. Follow-up is recommended to document resolution. Electronically signed by: J Luis Hugo MD 05/08/2025 12:11 PM EDT
--- NOTE | 2025-05-07 11:44 | ECG_ITS ---
Test Reason : cp Blood Pressure : */* mmHG Vent. Rate : 103 BPM Atrial Rate : 103 BPM P-R Int : 180 ms QRS Dur : 88 ms QT Int : 352 ms P-R-T Axes : 35 -38 44 degrees QTcB Int : 461 ms Sinus tachycardia Left axis deviation Minimal voltage criteria for LVH, may be normal variant ( [place] product ) Abnormal ECG When compared with ECG of 03-May-2023 08:43, Vent. rate has increased by 38 bpm Nonspecific T wave abnormality no longer evident in Inferior leads Referred By: Gerardo Navarro Electronically Signed By: ABDI PAULA
--- NOTE | 2025-05-07 11:44 | ED.CHESTPAIN ---
HPI - Chest Pain General Chief Complaint: Chest Pain Stated Complaint: Chest Pain, coughing, weak, Heat exaution? Time Seen by Provider: 05/07/25 13:35 Source: patient Mode of arrival: ambulatory Limitations: no limitations History of Present Illness ED Provider: LYNDON BRUNER PA-C HPI narrative: 60-year-old Malay-speaking male with pmhx significant for HTN, HLD, GERD, Crohn's disease, opioid use disorder on methadone, heroin and cocaine abuse, stage 3 CKD, presents to the ED today for evaluation of chest pain, cough and shortness of breath x2-3 days. Cough is productive of yellow/white sputum. Chest pain is present at all times not just on coughing. No know sick contacts. Denies fever, chills. Denies history of asthma/COPD. Denies tobacco use. Admits to drinking 3-4 beers daily. Denies history of withdrawal or withdrawal seizures. Admits to abusing heroin and cocaine, last used these 2 weeks ago. Denies IV drug use. Related Data Home Medications ?Medication ?Instructions ?Recorded ?Confirmed metoprolol tartrate 50 mg tablet 1 tab PO BID 03/03/21 05/02/23 rosuvastatin 40 mg tablet 1 tab PO BEDTIME 03/03/21 05/02/23 zolpidem 10 mg tablet 1 tab PO BEDTIME 03/03/21 05/02/23 ferrous gluconate 324 mg (38 mg 1 tab PO QAM 06/30/21 05/02/23 iron) tablet lidocaine 5 % topical patch 1 patch topical DAILY 08/20/21 05/02/23 cyanocobalamin (vitamin B-12) 1 tab PO DAILY 07/07/22 05/02/23 1,000 mcg tablet gabapentin 300 mg capsule 300 mg PO TID 02/17/23 05/02/23 methadone 10 mg/mL oral concentrate 44 mg PO DAILY 02/17/23 02/17/23 vancomycin 125 mg capsule 125 mg PO Q6H 07/24/23 lisinopril 20 mg tablet 20 mg PO QAM 11/01/24 pantoprazole 40 mg tablet,delayed 40 mg PO QAM 11/01/24 release Previous Rx's ?Medication ?Instructions ?Recorded budesonide 3 mg 9 mg (3 x 3 mg) PO DAILY #90 caps 09/21/23 capsule,delayed,extended release doxycycline hyclate 100 mg tablet 100 mg PO BID #20 tabs 10/27/23 loperamide 2 mg tablet (Imodium 2 mg PO Q8H PRN loose stool #30 10/27/23 A-D) tabs lidocaine HCl 2 % mucosal solution 1.2 ml mucous membrane TID PRN 01/10/24 (Lidocaine Viscous) pain #100 mL pramoxine 1 % topical foam 1 appl CA TID #15 grams 01/10/24 (Proctofoam) Allergies Allergy/AdvReac Type Severity Reaction Status Date / Time Iodinated Contrast Media (IV Allergy Intermediate HIVES Verified 05/07/25 11:56 CONTRAST) prednisone (PREDNISONE) Allergy Mild RASH Verified 05/07/25 11:56 Review of Systems Review of Systems: Constitutional: No fever, chills, fatigue, night sweats, weight changes ENT/Mouth: No ear pain, hearing loss, nasal congestion, sinus pain, rhinorrhea, sore throat Eyes: No eye pain, swelling, redness, vision changes, discharge Cardio: No palpitations, GEORGE, orthopnea, peripheral edema, +chest pain Pulm: No wheezing, dyspnea, hemoptysis, +productive cough, +shortness of breath GI: No nausea, vomiting, hematemesis, abdominal pain, diarrhea, constipation, hematochezia, melena : No irregular bleeding, dysuria, frequency, urgency, hesitancy, hematuria, flank pain, urinary flow changes, urinary incontinence or retention MSK: No back pain, neck pain, joint pain, myalgias Skin: No lesions, rashes Neuro: No weakness, numbness, paresthesias, LOC, dizziness, headache Psych: No anxiety/panic, depression, SI/HI, AH/VH All other systems reviewed and are negative. [facility] Past Medical History Attestation statement: The following information was validated with the patient. Source: old records reviewed and nursing notes reviewed Medical History Clostridium difficile carrier Opioid use disorder Constipation Crohn's disease of both small and large intestine CKD (chronic kidney disease) Ulcerative colitis HLD (hyperlipidemia) Colitis HTN (hypertension) Surgical History History of esophagogastroduodenoscopy (EGD) Hx of colonoscopy H/O total colectomy H/O cervical spine surgery History of colostomy reversal Family History Family History Mother Stroke Diabetes mellitus HTN (hypertension), benign Hyperlipidemia Brother Diabetes mellitus Social History Social History Household Members: None Housing: Apartment Housing Other:: Rents a room Do you presently have visiting nurse or other home services: No Alcohol intake: current Alcohol intake frequency: does not drink Patient Tobacco Use Status: Never used Tobacco Smoked in Last 30 Days: No e-Cigarette/Vaping Use: Never Used Second Hand Smoke Exposure: No Use of substances other than those prescribed or required for medical reasons: No Substance Use Type: Heroin Advance Directives: Yes Advance Directives on File: Yes Advance Directives Date on File: 03/08/21 service: No Current occupational status: unemployed Physical Exam Vital Signs: Vital Signs: Last Vital Signs Temp 98.3 F 05/07/25 15:06 Pulse 86 05/07/25 15:06 Resp 19 05/07/25 15:06 BP 121/74 05/07/25 15:06 Pulse Ox 94 05/07/25 15:06 O2 Del Method Room Air 05/07/25 15:06 BMI result Body Mass Index 33.4 Satting 93% on room air at rest General: Well appearing, in no acute distress. Skin: Warm, dry, intact. No rashes or lesions. Head: Normocephalic, atraumatic. EENT: Hearing is intact b/l. Conjunctiva clear. PERRLA. EOM intact. Moist mucous membranes.? Neck: Supple without LAD Cardiac: Chest wall symmetric. RRR Lungs: Normal respiratory effort, no accessory muscle use, no tripoding. Congested cough noted. Lungs with diffuse expiratory wheezes and rhonchi. Abdomen: Soft, non-tender, non-distended. No rebound tenderness or guarding. Positive BS x4. Back: No midline spinous or paraspinal tenderness. No step off deformity. Ext: Upper and lower extremities atraumatic, without tenderness, deformity, swelling or erythema. No pitting edema. No calf tenderness bilaterally. Neuro: AOx3. Normal speech. Ambulating with steady gait Course Course Course Narrative: This is an RME: Additional HPI, ROS, PE not included below will be deferred to primary provider. RME assessment and note performed by: Gerardo Navarro PA-C 60 yo M coming in for cough and yellow sputum. Was evaluated 11/05 and was encouraged to follow up with PCP for evaluation, has not done so. Still having cough with phlegm, denies SOB. Plan: Labs, CXR, viral serology Reevaluation(s) Reevaluation #1: CBC without leukocytosis or left shift. Normocytic anemia, H and H appears to be around patient's baseline when compared to priors. Chemistry without acute electrolyte abnormality requiring intervention. Acute on chronic kidney injury with a BUN of 33 and creatinine of 3.25. Troponin wnl. EKG showing sinus tachycardia with a rate of 103 beats per minute, no acute ischemic changes or ST elevations. Chest x-ray consistent with pneumonia. Sepsis alert called at 2:24 p.m. IV ceftriaxone and azithromycin ordered. Fluids running. Lactic/blood cultures pending. UA/urine drug screen pending. 1511 -- lactic WNL at 1.3. Spoke with hospitalist Dr. Bates. Patient will be admitted to medicine for acute hypoxic respiratory failure in the setting of pneumonia along with acute on chronic kidney injury. patient is agreeable. Medications Administered Discontinued Medications Generic Name Dose Route Start Last Admin Trade Name Freq PRN Reason Stop Dose Admin Ceftriaxone Sodium 1 gm 05/07/25 14:03 05/07/25 15:10 Ceftriaxone Sodium 1 Gm Vial IVPUSH 05/07/25 14:04 1 gm ONCE ONE Administration Albuterol Sulfate 2.5 mg/ 0 mg 05/07/25 14:28 05/07/25 14:35 Albuterol/Ipratropium 3 ml INHALE 05/07/25 14:29 5 dose ONCE ONE Administration Sodium Chloride 1,000 mls @ 999 mls/hr 05/07/25 13:45 05/07/25 15:00 Ns IV 05/07/25 14:45 999 mls/hr .Q1H1M MELVI Administration Magnesium Sulfate 2 gm in 50 mls @ 150 mls/hr 05/07/25 14:17 05/07/25 15:13 Magnesium Sulfate/H2o IV 05/07/25 14:36 150 mls/hr ONCE ONE Administration Methylprednisolone Sodium Succinate 125 mg 05/07/25 14:22 05/07/25 15:12 Methylprednisolone Sod Succ 125 Mg/2 Ml Vial IVPUSH 05/07/25 14:23 125 mg ONCE ONE Administration Medical Decision Making Medical Decision Making [facility] Narrative: 60-year-old Malay-speaking male with pmhx significant for HTN, HLD, GERD, Crohn's disease, opioid use disorder on methadone, heroin and cocaine abuse, stage 3 CKD, presents to the ED today for evaluation of chest pain, cough and shortness of breath x2-3 days. BP soft on arrival, 95/59. Tachycardic to 105. Satting 93% on room air. On ambulatory O2 trial, patient desatted to 87-88% and endorsed feeling short of breath. On exam, normal respiratory effort, no accessory muscle use, no tripoding. Congested cough noted. Lungs with diffuse expiratory wheezes and rhonchi. There is no peripheral edema or calf tenderness bilaterally. No JVD. Differential diagnosis includes anemia, electrolyte abnormality, bronchitis, pneumonia, viral syndrome, ACS, arrhythmia, pleural effusion. Lower suspicion for PE. Plan for labs, EKG, chest x-ray, viral swabs, UA, re-evaluation. Differential Diagnosis Differential Diagnoses: The differential diagnosis associated with the presentation includes as above Admission/Observation Consideration of admission/observation: Escalation of care including admission/observation considered Patient admitted to medicine for management of acute hypoxic respiratory failure in the setting of pneumonia along with acute on chronic kidney injury Consult Healthcare Provider Management of the patient was discussed with: Hospitalist (dr. bates) Lab Data [facility] Lab Attestation statement: I reviewed the patient's lab results. as above. 05/07/25 12:30 05/07/25 12:30 Labs: Lab Results 05/07/25 05/07/25 Range/Units 12:30 14:31 WBC 5.5 (4.8-10.8) X10*3/uL RBC 3.99 L (4.60-5.80) X10*6/uL Hgb 12.0 L (14.0-18.0) g/dl Hct 37.2 L (42.0-52.0) % MCV 93.2 (80.0-98.0) fL MCH 30.1 (27.0-33.0) pg MCHC 32.3 (31.0-36.0) g/dl RDW 15.5 (11.0-16.0) % Plt Count 130 L D (160-400) X10*3/uL MPV 9.6 (9.4-12.4) fL Immature Gran % (Auto) 0.4 (0.0-0.4) % Neut % (Auto) 58.7 (45-73) % Lymph % (Auto) 27.8 (20-40) % [place] % (Auto) 10.5 (2-11) % Eos % (Auto) 2.2 (0-4) % Baso % (Auto) 0.4 (0-2) % Lymph # (Auto) 1.5 (1.2-4.9) X10*3/uL [place] # (Auto) 0.6 (0.1-1.2) X10*3/uL Eos # (Auto) 0.1 (0.0-0.4) X10*3/uL Baso # (Auto) 0.0 (0.0-0.2) X10*3/uL Abs Immat Gran (auto) 0.02 (0.00-0.03) X10*3/uL Absolute Neuts (auto) 3.2 (2.0-8.3) x10*3/uL Absolute Nucleated RBC 0.000 (0.0-0.012) X10*3/uL Nucleated RBC % (auto) 0.0 (0.0-0.2) /100WBC Sodium 141 (135-145) mmol/L Potassium 4.3 (3.3-5.1) mmol/L Chloride 113 H (96-108) mmol/L Carbon Dioxide 17 L (22-29) mmol/L Anion Gap 15 (12-20) BUN 33 H (9-16) mg/dL Creatinine 3.25 H (0.5-1.4) mg/dL Estim Creat Clear Calc 28.5 Estimated GFR 20 Random Glucose 103 (60-115) mg/dL Lactic Acid 1.3 (0.5-2.0) mmol/L Calcium 8.7 D (8.4-10.2) mg/dL Magnesium 1.6 (1.6-2.6) mg/dL Total Bilirubin 0.5 (0.0-1.0) mg/dL AST 25 (5-37) U/L ALT 14 (0-40) U/L Alkaline Phosphatase 80 (39-117) U/L Troponin I High Sens 5.3 (<3.5-35.0) ng/L Total Protein 8.1 H (6.5-8.0) g/dL Albumin 4.0 (3.5-5.0) g/dL Independent Interpretation I performed an independent interpretation of an: EKG and Plain X-Ray Interpretation: EKG showing sinus tachycardia rate of 103 beats per minute, QT 334, QTC 461, no acute ischemic changes or ST elevations Chest x-ray with bibasilar opacities Radiology Impression Discussion of test interpretation with radiology: I have reviewed the radiologist's reading. Radiologist Impression: Date of Service: 05/07/25 Procedure(s): XR chest 1V Accession Number(s): [id number] cc: Gerardo Navarro PA-C; [facility] EXAMINATION: XR CHEST CLINICAL INFORMATION: cough, CP COMPARISON: 10/17/2024, 09/24/2024. TECHNIQUE: PA view of the chest was obtained. FINDINGS: The cardiac, hilar, and mediastinal contours are normal. Mild aortic calcifications. Lungs demonstrate subtle increased bibasilar opacities. Mid and upper lungs clear. No pneumothorax or effusion. No focal osseous or soft tissue abnormality. There are degenerative changes in the spine and involving the right greater than left shoulder joints. XR/XR chest 1V IMPRESSION: Subtly increased bibasilar opacities suspicious for bibasilar pneumonia in the appropriate clinical setting. Electronically signed by: Rojelio Julien MD 05/07/2025 12:10 PM EDT External Record Review External record reviewed: Inpatient record Prescription Management I considered prescription management with: Antibiotic Chronic Conditions Patient?s care impacted by: Other (polysubstance use) Social Determinants Patient?s care significantly limited by Social Determinants of Health including: Alcoholism and drug addiction in family and Other Social Determinant of Health Critical Care Time Critical Care Time Critical Care Time: Yes Total Critical Care Time: 35 Attestation: Critical care time in the amount of 35 minutes has been provided to the patient in terms of direct patient care, frequent reevaluation, consultation with hospitalist, review and interpretation of medical data and results, and management of potentially life-threatening conditions. This is all outside of any medical procedures. Discharge Plan Discharge Clinical Impression: Acute hypoxic respiratory failure, Bilateral pneumonia, Acute kidney injury superimposed on CKD Patient Disposition: Admitted As Inpatient Print Language: Malay
[2025-05-07 11:52] VITALS: BP 95/59; PULSE 105; RESP 20; TEMP 36.8; O2SAT 93; BMI 33.4
[2025-05-07 12:33] LABS: MANUAL DIFF FLAG NO
[2025-05-07 12:48] LABS: Basophils Percent Auto 0.4 % (0-2); Eosinophils Absolute Auto 0.1 X10*3/uL (0.0-0.4); Eosinophils Percent Auto 2.2 % (0-4); Hematocrit 37.2 % (42.0-52.0); Imm Gran Abs Auto 0.02 X10*3/uL (0.00-0.03); Imm Gran Pct Auto 0.4 % (0.0-0.4); Lymphocytes Absolute Auto 1.5 X10*3/uL (1.2-4.9); Lymphocytes Percent Auto 27.8 % (20-40); Mean Corpuscular HGB Conc 32.3 g/dl (31.0-36.0); Mean Corpuscular Hemoglobin 30.1 pg (27.0-33.0); Mean Corpuscular Volume 93.2 fL (80.0-98.0); Mean Platelet Volume 9.6 fL (9.4-12.4); Monocytes Absolute Auto 0.6 X10*3/uL (0.1-1.2); Monocytes Percent Auto 10.5 % (2-11); Neutrophils Absolute Auto 3.2 x10*3/uL (2.0-8.3); Neutrophils Percent Auto 58.7 % (45-73); Platelet Count 130 X10*3/uL (160-400); Red Blood Count 3.99 X10*6/uL (4.60-5.80); Red Cell Distribution Width 15.5 % (11.0-16.0); White Blood Count 5.5 X10*3/uL (4.8-10.8)
[2025-05-07 12:53] LABS: Alanine Aminotransferase 14 U/L (0-40); Alkaline Phosphatase 80 U/L (39-117); Anion Gap 15 (12-20); Aspartate Amino Transferase 25 U/L (5-37); Bilirubin Total 0.5 mg/dL (0.0-1.0); Blood Urea Nitrogen 33 mg/dL (9-16); Calcium 8.7 mg/dL (8.4-10.2); Carbon Dioxide 17 mmol/L (22-29); Chloride 113 mmol/L (96-108); Creatinine Clr Calc Pharmacy 28.5; Estimated Glomerular Filt Rate 20; Glucose Random 103 mg/dL (60-115); Magnesium 1.6 mg/dL (1.6-2.6); Potassium 4.3 mmol/L (3.3-5.1); Sodium 141 mmol/L (135-145); Total Protein 8.1 g/dL (6.5-8.0)
[2025-05-07] MEDS: Albuterol Sulfate 2.5 MG, Albuterol/Iprat 2.5/0.5MG 3 ML 3 ML INHALE (14:35)
[2025-05-07 14:36] VITALS: PULSE 90; RESP 17; O2SAT 99
[2025-05-07 14:50] LABS: Troponin-I High Sensitivity 5.3 ng/L (<3.5-35.0)
[2025-05-07 14:55] LABS: Lactic Acid 1.3 mmol/L (0.5-2.0)
[2025-05-07] MEDS: 0.9 % Sodium Chloride 1,000 ML 999 ML IV (15:00)
[2025-05-07 15:06] VITALS: BP 121/74; PULSE 86; RESP 19; TEMP 36.8; O2SAT 94
[2025-05-07] MEDS: cefTRIAXone sodium 1 GM VIAL IVPUSH (15:10)
[2025-05-07] MEDS: methylPREDNISolone Sod Succ 125 MG/2 ML VIAL IVPUSH (15:12)
[2025-05-07] MEDS: Magnesium Sulfate/H2O 2 GM/50 ML PIGGYBACK IV (15:13)
[2025-05-07] MEDS: Azithromycin 500 MG in 0.9 % Sodium Chloride 250 ML 125 MG IV (15:19)
[2025-05-07 15:20] LABS: Appearance Urine Clear; Color Urine Yellow; Glucose Urine UA Negative (Negative); Leukocyte Esterase Urine Negative (Negative); Nitrite Urine Negative (Negative); Specific Gravity - Urine >= 1.030 (1.005-1.025); UMIC TRIGGER UACC YES; Urine Blood Negative (Negative); Urine Ketones Negative (Negative); Urine Protein 100 (2+) mg/dL (Neg-Trace)
--- NOTE | 2025-05-07 15:27 | PC.NURSE ---
Delay in administration of abx d/t pt being diff stick and not having iv access.
[2025-05-07 15:31] LABS: Amphetamine Screen Urine Not Detected (Not Detect); Barbiturates, Urine Not Detected (Not Detect); Benzodiazepines Screen Urine Not Detected (Not Detect); Buprenorphine Scr Not Detected (Not Detect); Cannabinoid Screen Urine Not Detected (Not Detect); Cocaine Screen Urine POSITIVE (Not Detect); Fentanyl, urine POSITIVE (Not Detect); Methadone Screen, Urine Positive (Not Detect); Opiate Screen Urine POSITIVE (Not Detect); Oxycodone Screen Urine Not Detected (Not Detect); Phencyclidine Screen Urine Not Detected (Not Detect)
[2025-05-07 15:38] LABS: Bacteria Urine None Seen (None Seen); RBC Urine 0-2 /HPF (0-2); WBC Urine 0-5 /HPF (0-5)
--- NOTE | 2025-05-07 16:02 | PM.IMHP ---
History of Present Illness Date of Service: 05/07/25 Chief Complaint: PNA 60-year-old Cook Islander-speaking male with PMH significant for HTN, HLD, GERD, Crohn's disease, SP reversal of ileostomy 10 years ago, total colectomy, opioid use disorder on methadone, heroin and cocaine abuse, stage 3 CKD, presents to the ED today for evaluation of chest pain, cough and shortness of breath x2-3 days. Patient reports that he developed a cough with yellow white sputum approximately 2-3 days ago, no sick contacts, reports that he had chest pain when he came to the ED which is now improved. Patient denies any history of asthma, COPD, prior pneumonia. Denies any tobacco use, does not smoke marijuana, does not smoke any cocaine. Patient reports that he has frequent diarrhea at baseline, but reports up to 7-8 X day which is more than usual for him. In the ED was tachycardic, desatting to the high 80s on room air, lactic acid was 1.3, BUN 33, creatinine 3.25, blood cultures were sent. Viral panel negative. he received IV fluids, ceftriaxone, azithromycin, and respiratory treatments as well as Solu-Medrol and magnesium in the ER. He will be admitted for further care. Review of Systems Review of Systems: Denies any shortness of breath, chest pain, dizziness, lightheadedness, abdominal pain or discomfort, nausea vomiting or diarrhea PMFSH Medical History Clostridium difficile carrier Opioid use disorder Constipation Crohn's disease of both small and large intestine CKD (chronic kidney disease) Ulcerative colitis HLD (hyperlipidemia) Colitis HTN (hypertension) Family History Mother Stroke Diabetes mellitus HTN (hypertension), benign Hyperlipidemia Brother Diabetes mellitus Surgical History History of esophagogastroduodenoscopy (EGD) Hx of colonoscopy H/O total colectomy H/O cervical spine surgery History of colostomy reversal Social History Household Members: None Housing: Apartment Housing Other:: Rents a room Do you presently have visiting nurse or other home services: No Alcohol intake: current Alcohol intake frequency: does not drink Patient Tobacco Use Status: Never used Tobacco Smoked in Last 30 Days: No e-Cigarette/Vaping Use: Never Used Second Hand Smoke Exposure: No Use of substances other than those prescribed or required for medical reasons: No Substance Use Type: Heroin Advance Directives: Yes Advance Directives on File: Yes Advance Directives Date on File: 03/08/21 service: No Current occupational status: unemployed Meds Allergies Allergy/AdvReac Type Severity Reaction Status Date / Time Iodinated Contrast Media (IV Allergy Intermediate HIVES Verified 05/07/25 11:56 CONTRAST) prednisone (PREDNISONE) Allergy Mild RASH Verified 05/07/25 11:56 Active Medications: Current Medications Azithromycin 500 mg/ Sodium (Chloride) 250 mls @ 125 mls/hr IV ONCE ONE Stop: 05/07/25 16:02 Last Admin: 05/07/25 15:19 Dose: 125 mls/hr Home Medications ?Medication ?Instructions ?Recorded ?Confirmed ?Last Taken ?Type metoprolol tartrate 50 mg tablet 50 mg PO BID 03/03/21 05/02/23 05/02/23 History rosuvastatin 40 mg tablet 40 mg PO BEDTIME 03/03/21 05/02/23 05/02/23 History zolpidem 10 mg tablet 1 tab PO BEDTIME 03/03/21 05/02/23 05/01/23 History ferrous gluconate 324 mg (38 mg 1 tab PO QAM 06/30/21 05/02/23 05/02/23 History iron) tablet lidocaine 5 % topical patch 1 patch topical DAILY 08/20/21 05/02/23 05/02/23 History cyanocobalamin (vitamin B-12) 1 tab PO DAILY 07/07/22 05/02/23 05/02/23 History 1,000 mcg tablet gabapentin 300 mg capsule 300 mg PO TID 02/17/23 05/02/23 05/02/23 History methadone 10 mg/mL oral concentrate 44 mg PO DAILY 02/17/23 02/17/23 05/02/23 History lisinopril 20 mg tablet 20 mg PO DAILY 11/01/24 Unknown History pantoprazole 40 mg tablet,delayed 40 mg PO DAILY@0630 11/01/24 Unknown History release acetaminophen 650 mg 650 mg PO Q8H PRN mild pain 05/07/25 Unknown History tablet,extended release felodipine 5 mg tablet,extended 5 mg PO QPM 05/07/25 Unknown History release 24 hr Physical Exam Vital Signs and Narrative: Vital Signs: Last Vital Signs Temp 98.3 F 05/07/25 15:06 Pulse 86 05/07/25 15:06 Resp 19 05/07/25 15:06 BP 121/74 05/07/25 15:06 Pulse Ox 94 05/07/25 15:06 O2 Del Method Room Air 05/07/25 15:06 BMI result Body Mass Index 33.4 CONST: Alert and oriented, in NAD. Well nourished HEENT: Normocephalic, atraumatic, MMM, Eyes clear, Neck supple RESP: Lungs with wheezing throughout. No use of accessory muscles, no increased work of breathing. Continues to cough HEART:,RRR, S1, S2. No murmur, no edema GI:Abdomen Soft NT, ND. + BS times four :Deferred SKIN: Warm dry and intact, no visible lesions or rashes NEURO:CN II-XII Intact bilaterally, Sensation intact. Speech clear PSYCH: Normal affect Results Labs 05/07/25 12:30 05/07/25 12:30 Labs: Laboratory Results - last 24 hr 05/07/25 05/07/25 05/07/25 12:30 14:31 15:03 MCV 93.2 MCH 30.1 MCHC 32.3 RDW 15.5 Plt Count 130 L D MPV 9.6 Immature Gran % (Auto) 0.4 Neut % (Auto) 58.7 Lymph % (Auto) 27.8 [place] % (Auto) 10.5 Eos % (Auto) 2.2 Baso % (Auto) 0.4 Lymph # (Auto) 1.5 [place] # (Auto) 0.6 Eos # (Auto) 0.1 Baso # (Auto) 0.0 Abs Immat Gran (auto) 0.02 Absolute Neuts (auto) 3.2 Absolute Nucleated RBC 0.000 Nucleated RBC % (auto) 0.0 Anion Gap 15 Estim Creat Clear Calc 28.5 Estimated GFR 20 Random Glucose 103 Lactic Acid 1.3 Calcium 8.7 D Magnesium 1.6 Total Bilirubin 0.5 AST 25 ALT 14 Alkaline Phosphatase 80 Troponin I High Sens 5.3 Total Protein 8.1 H Albumin 4.0 Urine Color Yellow Urine Appearance Clear Urine pH 6.0 Ur Specific Muse >= 1.030 H Urine Protein 100 (2+) H Urine Glucose (UA) Negative Urine Ketones Negative Urine Blood Negative Urine Nitrite Negative Ur Leukocyte Esterase Negative Urine RBC 0-2 Urine WBC 0-5 Ur Squamous Epith Cells 6-10 Urine Bacteria None Seen Hyaline Casts 6-10 Urine Opiates Screen POSITIVE H Ur Buprenorphine Scrn Not Detected Ur Oxycodone Screen Not Detected Urine Methadone Screen Positive H Urine Fentanyl Screen POSITIVE H Ur Barbiturates Screen Not Detected Ur Phencyclidine Scrn Not Detected Ur Amphetamines Screen Not Detected U Benzodiazepines Scrn Not Detected Urine Cocaine Screen POSITIVE H U Marijuana (THC) Screen Not Detected Imaging Radiologist's Impressions: Impressions Chest X-Ray 05/07/25 11:04 IMPRESSION: Subtly increased bibasilar opacities suspicious for bibasilar pneumonia in the appropriate clinical setting. Electronically signed by: Rojelio Julien MD 05/07/2025 12:10 PM EDT RP Assessment and Plan (1) Bilateral pneumonia: Status: Acute Plan 60-year-old male with past medical history of hypertension, hyperlipidemia, GERD, Crohn's disease, status post reversal of ileostomy 10 years ago, total colectomy, chronic diarrhea, opioid use disorder on methadone, states she kind of kidney disease presents to the ED for chest pain, cough and shortness of breath for 2-3 days. He was found to have a bibasilar pneumonia, we will be admitted for further care. Medications not reconciled at time of dictation. Acute hypoxic respiratory failure secondary to pneumonia Patient with no history of COPD, asthma or smoking. Chest x-ray demonstrated bibasilar opacities suspicious for pneumonia, no leukocytosis Blood cultures pending, Lactate 1.3, no leukocytosis. Continue with wheezing throughout Continue ceftriaxone and azithromycin Continue oxygen as needed Continue Solu-Medrol twice daily Acute on chronic renal failure Creatinine increased to 3.25 Last creatinine done May 2024 noted to be 2.71, patient has not followed up with renal Baseline creatinine noted to be 1.3 to 1.5 per last Nephrology note in 2022. Will consult nephrology Continue IVF Diarrhea.History of CDIFF Patient with a history of Chrohn's, Total colectomy and reversal of ileostomy, now with chronic diarrhea Per patient has been having increase in diarrhea GI panel and CDIFF pending Hypertension/HLD Continue home meds Polysubstance abuse on methadone Reports history of heroin and cocaine abuse Patient denies history of smoking Continue methadone home dosing CODE STATUS: FULL CODE VTE Prophylaxis: Lovenox. Quality Stroke Does the patient have a stroke diagnosis?: No VTE Prior VTE?: No VTE Risk Level:: Medical - moderate - high VTE Device Contraindication: Treatment Not Indicated VTE Drug Contraindication: N/A - Med Ordered
[2025-05-07 16:21] VITALS: BP 135/79; PULSE 91; RESP 12; TEMP 37.1; O2SAT 95
--- OUTSIDE RECORDS SUMMARY | 2025-05-07 16:35 | XMS_ITS | Encounter Summary ---
Author Organization [employer] Address [address] [facility] [address] [place] [address] Care Team Providers Care Library Clerical Assistant Name Role Phone Dariela Zapata MD Primary Care Provide r Reason for Visit * Reason Onset Date Comments mail appt slip 03/11/2025 Encounter Details Date Type Department Care Team ([facility] st Contact Info) Description 03/11/2025 Telephone [facility] ADULT DENTAL [address] [place] [address] Leroy Joel DDS [address] [place] [address] mail appt slip Social History Tobacco Use Types Packs/Day Years Used Date Smoking Tobacco: Never Passive Smoke Exposure: Never Smokeless Tobacco: Never Alcohol Use Standard Drinks/Week Comments Not Currently 0 (1 standard drink = 0.6 oz pur e alcohol) Depression Answer Date Recorded Patient Health Questionnaire-9 Score 0 03/25/2024 Patient Health Questionnaire-9 Score 0 03/25/2024 Last PHQ-9: Questionnaire Data Not on file 0 03/25/2024 Housing Stability Answer Date Recorded What is your housing situation today? I have carlos cardona 09/19/[address] you li ve. Do you have problems with any of the following? None of the above 09/19/2024 Food Insecurity Answer Date Recorded Within the past 12 months, y ou worried that your food would run out before you got money to buy more: Sometimes True 2023 Within the past 12 months,th e food you bought just didn't last and you didn't have enough money to get more: Sometimes True 09/19/2024 Transportation Answer Date Recorded In the past 12 months, has l ack of transportation kept you from medical appts, meetings, work or from getting things needed for daily living? No 09/19/2024 Utilities Answer Date Recorded In the past 12 months, has t he electric, gas, oil or water company threatened to shut off services in your home? No 09/19/2024 Depression Answer Date Recorded Patient Health Questionnaire-2 Score 0 03/25/2024 Internet Access Answer Date Recorded Internet Access Q1 No 09/19/2024 Internet Access Q2 I cannot afford it 09/19/2024 Sex and Gender Information Value Date Recorded Sex Assigned at Male 09/12/2022 10:23 AM EDT Legal Sex Male 10:23 AM EDT Gender Identity Male 09/12/2022 10:23 AM EDT Sexual Orientation Straight 09/12/2022 10 :23 AM EDT documented as of this encounter Miscellaneous Notes * Telephone Encounter - Alona Reagan - 03/11/2025 3:12 PM EDT Patient would like appt slip mailed to his home DR documented in this encounter Plan of Treatment Upcoming Encounters Date Type Department Care Team (Late st Contact Info) Description 07/15/2025 9:30 AM EDT Office Visit [facility] MEDICINE [address] [place] [address] Dariela Zapata MD [address] [place] [address] documented as of this encounter Visit Diagnoses Not on filedocumented in this encounter Additional Health Concerns Assessment Noted Time PHQ-9 Depression Total Score: 0 03/25/20 24 2:34 PM EDT documented as of this encounter Care Teams Library Clerical Assistant Relationship Specialty Start Date End Date Dariela Zapata MD [address] [place] [address] PCP - General Family Medicine 10/14/19 documented as of this encounter
[2025-05-07 17:05] VITALS: BMI 33.4
--- NOTE | 2025-05-07 17:14 | PHA.MEDREC ---
Addendum entered by Bárbara Garcia RPh 05/07/25 17:38: REVIEWED BY [facility] Original Note: Pharmacy Consult ? Medication Reconciliation Pharmacy has completed the medication reconciliation. Spoke with pt and he was able to confirm his medicaitons. Pt confirmed his Methadone and confirmed he takes 50mg of that daily. He also confirmed he is still taking Mesalamine 400mg tab 2 TID as needed for flare up's with his Crohns.
[2025-05-07 17:16] VITALS: BP 135/75; PULSE 93; RESP 18; TEMP 36.5; O2SAT 94
[2025-05-07] MEDS: 0.9 % Sodium Chloride 1,000 ML 100 ML IVCONT (17:38)
[2025-05-07] MEDS: Enoxaparin Sodium 40 MG/0.4 ML SYRINGE SUBCUT (17:40)
--- NOTE | 2025-05-07 17:50 | PC.NURSE ---
Sepsis fluids infusing upon transfer, accepting RN made aware will have to follow up with two bp's following completion of infusion.
[2025-05-07 19:24] VITALS: BP 160/84; PULSE 82; RESP 18; TEMP 36.8; O2SAT 93
[2025-05-07] MEDS: Mesalamine 400 MG CAP.DRTAB. 800 MG PO (20:56)
[2025-05-07] MEDS: Metoprolol Tartrate 50 MG TABLET PO (20:56)
[2025-05-07] MEDS: Atorvastatin Calcium 80 MG TABLET PO (20:56)
[2025-05-07] MEDS: Gabapentin 300 MG CAPSULE PO (20:57)
[2025-05-07] MEDS: Zolpidem Tartrate 5 MG TABLET PO (20:59)
[2025-05-07 22:21] LABS: CDiff Gene PCR NEGATIVE (Negative)
[2025-05-07] MEDS: methylPREDNISolone Sod Succ 40 MG VIAL IVPUSH (23:48)
[2025-05-07] MEDS: Melatonin 3 MG TABLET PO (23:48)
[2025-05-08] MEDS: 0.9 % Sodium Chloride 1,000 ML 100 ML IVCONT (02:56)
[2025-05-08 03:29] VITALS: PULSE 76; RESP 18; O2SAT 95
[2025-05-08] MEDS: Albuterol/Iprat 2.5/0.5MG 3 ML AMPUL.NEB INHALE ×2 (03:29→20:34)
[2025-05-08 03:42] VITALS: BP 166/78; PULSE 75; RESP 17; TEMP 36.4; O2SAT 95
[2025-05-08] MEDS: Omeprazole 20 MG CAPSULE.DR PO (05:13)
[2025-05-08 06:01] LABS: MANUAL DIFF FLAG NO
[2025-05-08 06:20] LABS: Basophils Percent Auto 0.2 % (0-2); Hematocrit 34.2 % (42.0-52.0); Hemoglobin 11.1 g/dl (14.0-18.0); Imm Gran Abs Auto 0.04 X10*3/uL (0.00-0.03); Imm Gran Pct Auto 0.9 % (0.0-0.4); Lymphocytes Absolute Auto 0.5 X10*3/uL (1.2-4.9); Lymphocytes Percent Auto 11.3 % (20-40); Mean Corpuscular HGB Conc 32.5 g/dl (31.0-36.0); Mean Corpuscular Hemoglobin 29.8 pg (27.0-33.0); Mean Corpuscular Volume 91.7 fL (80.0-98.0); Mean Platelet Volume 9.4 fL (9.4-12.4); Monocytes Absolute Auto 0.1 X10*3/uL (0.1-1.2); Monocytes Percent Auto 2.6 % (2-11); Platelet Count 121 X10*3/uL (160-400); Red Blood Count 3.73 X10*6/uL (4.60-5.80); Red Cell Distribution Width 14.9 % (11.0-16.0); White Blood Count 4.7 X10*3/uL (4.8-10.8)
[2025-05-08 06:30] LABS: Anion Gap 16 (12-20); Blood Urea Nitrogen 32 mg/dL (9-16); Calcium 8.2 mg/dL (8.4-10.2); Carbon Dioxide 17 mmol/L (22-29); Chloride 107 mmol/L (96-108); Creatinine Clr Calc Pharmacy 43.3; Estimated Glomerular Filt Rate 32; Glucose Random 217 mg/dL (60-115); Potassium 4.6 mmol/L (3.3-5.1); Sodium 135 mmol/L (135-145)
--- NOTE | 2025-05-08 07:12 | PC.NURSE ---
verify Methadone 50mg, [facility] in [place]. Faxed to Pharmacy.
--- NOTE | 2025-05-08 07:16 | HE.PHANOTE ---
Re Methadone Received dose verification from nursing. Pt gets 50mg from [facility] [address], and was given 5 take home bottles on 05/02/2025.
[2025-05-08 07:29] VITALS: BP 167/86; PULSE 78; RESP 18; TEMP 36.6; O2SAT 96
[2025-05-08] MEDS: methADONE HCl 20 MG/2 ML ORAL.CONC 50 MG PO (07:46)
[2025-05-08] MEDS: Mesalamine 400 MG CAP.DRTAB. 800 MG PO ×3 (07:47→20:27)
[2025-05-08] MEDS: lisinopriL 20 MG TABLET PO (07:48)
[2025-05-08] MEDS: Gabapentin 300 MG CAPSULE PO ×3 (07:48→20:26)
[2025-05-08] MEDS: Cyanocobalamin (Vitamin B-12) 1,000 MCG TABLET 1000 MCG PO (07:48)
[2025-05-08] MEDS: Metoprolol Tartrate 50 MG TABLET PO ×2 (07:48→20:26)
[2025-05-08 08:57] LABS: Adenovirus F 40/41 Not Detected (Not Detect.); Astrovirus Not Detected (Not Detect.); Campylobacter Not Detected (Not Detect.); Cryptosporidium Not Detected (Not Detect.); Cyclospora cayetanensis Not Detected (Not Detect.); E. coli EAEC Not Detected (Not Detect.); E. coli EPEC Not Detected (Not Detect.); E. coli ETEC Not Detected (Not Detect.); E. coli STEC Not Detected (Not Detect.); Entamoeba histolytica Not Detected (Not Detect.); Giardia lamblia Not Detected (Not Detect.); Norovirus GI/GII Not Detected (Not Detect.); Plesiomonas shigelloides Not Detected (Not Detect.); Rotavirus A Not Detected (Not Detect.); Salmonella Not Detected (Not Detect.); Sapovirus Not Detected (Not Detect.); Shigella sp./EIEC Not Detected (Not Detect.); Vibrio Not Detected (Not Detect.); Vibrio Cholerae Not Detected (Not Detect.); Yersinia enterocolitica Not Detected (Not Detect.)
--- NOTE | 2025-05-08 09:05 | P.CONNP_ITS ---
History of Present Illness Reason for Consult Consult date: 05/08/25 Chief Complaint Chief complaint: Hypoxemia,Pneumonia History of Present Illness Narrative: 60 y/o male with HTN, HLD, GERD, Crohn's disease, SP reversal of ileostomy 10 years ago, total colectomy, opioid use disorder on methadone, heroin and cocaine abuse, stage 3 CKD. Presented 05/07 with 3 days of chest pain, cough and shortness of breath. Creatinine elevated to 3.25, baseline 1.5-2.0 Nephrology consulted for CITLALY. patient states he was is feeling better, though still wheezing. patient has been receiving IVF, creatinine 2.14 this a.m. he denies additional concerns/complaints. Review of Systems Constitutional: Reports no additional constitutional complaints Denies dizziness Cardiovascular: Denies chest pain, Denies leg edema, Denies lightheadedness and Reports dyspnea Respiratory: Reports cough and Reports dyspnea Gastrointestinal: Denies abdominal pain, Denies diarrhea, Denies nausea and Denies vomiting Genitourinary: Denies hematuria, Denies oliguria, Denies difficulty urinating, Denies dysuria and Denies flank pain Musculoskeletal: Denies arthralgias and Denies joint swelling Skin/Breast: Denies rash Denies dizziness and Denies tremor(s) [facility] Past Medical History Medical History Clostridium difficile carrier Opioid use disorder Constipation Crohn's disease of both small and large intestine CKD (chronic kidney disease) Ulcerative colitis HLD (hyperlipidemia) Colitis HTN (hypertension) Family History Family History Mother Stroke Diabetes mellitus HTN (hypertension), benign Hyperlipidemia Brother Diabetes mellitus Surgical History Surgical History History of esophagogastroduodenoscopy (EGD) Hx of colonoscopy H/O total colectomy H/O cervical spine surgery History of colostomy reversal Social History Social History Household Members: None Housing: Apartment Housing Other:: Rents a room Do you presently have visiting nurse or other home services: No Alcohol intake: current Alcohol intake frequency: does not drink Comment: Christopher Patient Tobacco Use Status: Never used Tobacco Smoked in Last 30 Days: No e-Cigarette/Vaping Use: Never Used Second Hand Smoke Exposure: No Use of substances other than those prescribed or required for medical reasons: No Substance Use Type: Heroin Currently Displaying Signs/Symptoms of Drug Intoxication Withdrawal: No Have you been hit, kicked, punched, or otherwise hurt by someone within the past year? If so, by whom?: No Do you feel safe in your current relationship?: Yes Is there a partner from a previous relationship who is making you feel unsafe now?: No Are you made to feel afraid or neglected: No Advance Directives: Yes Advance Directives on File: Yes Advance Directives Date on File: 03/08/21 Do you have a plan to hurt others: No Plan Recently lost weight without trying: No How much weight loss: Not applicable Eating poorly because of decreased appetite: No Nutrition screen score: 0 Nutrition Risks: No Nutritional Risk Poor oral hygiene: No service: No Current occupational status: unemployed Meds Allergies Allergy/AdvReac Type Severity Reaction Status Date / Time Iodinated Contrast Media (IV Allergy Intermediate HIVES Verified 05/07/25 11:56 CONTRAST) prednisone (PREDNISONE) Allergy Mild RASH Verified 05/07/25 11:56 Active Medications: Current Medications Acetaminophen (Acetaminophen 325 Mg Tablet) 650 mg PO Q6H PRN PRN Reason: Pain, Mild 1-3,fever,headache Albuterol/Ipratropium (Albuterol/Iprat 2.5/0.5mg 3 Ml Ampul.Neb) 3 ml INHALE Q6H PRN PRN Reason: Shortness of Breath/Wheezing Last Admin: 05/08/25 03:29 Dose: 3 ml Atorvastatin Calcium (Atorvastatin Calcium 80 Mg Tablet) 80 mg PO BEDTIME [facility] Last Admin: 05/07/25 20:56 Dose: 80 mg Calcium Carbonate (Calcium Carbonate 750 Mg Tab.Chew) 750 mg PO Q4H PRN PRN Reason: Heartburn Ceftriaxone Sodium (Ceftriaxone Sodium 1 Gm Vial) 1 gm IVPUSH Q24H [facility] Cyanocobalamin (Cyanocobalamin (Vitamin B-12) 1,000 Mcg Tablet) 1,000 mcg PO DAILY [facility] Last Admin: 05/08/25 07:48 Dose: 1,000 mcg Enoxaparin Sodium (Enoxaparin Sodium 40 Mg/0.4 Ml Syringe) 40 mg SUBCUT Q24H [facility] Last Admin: 05/07/25 17:40 Dose: 40 mg Gabapentin (Gabapentin 300 Mg Capsule) 300 mg PO TID [facility] Last Admin: 05/08/25 07:48 Dose: 300 mg Azithromycin 250 mg/ Sodium (Chloride) 250 mls @ 125 mls/hr IV Q24H [facility] Sodium Chloride (Ns) 1,000 mls @ 100 mls/hr IVCONT .Q10H [facility] Last Admin: 05/08/25 02:56 Dose: 100 mls/hr Lisinopril (Lisinopril 20 Mg Tablet) 20 mg PO DAILY [facility]; Protocol Last Admin: 05/08/25 07:48 Dose: 20 mg Magnesium Hydroxide (Milk Of Magnesia 30 Ml Oral.Susp) 30 ml PO DAILY PRN PRN Reason: Constipation Melatonin (Melatonin 3 Mg Tablet) 3 mg PO BEDTIME PRN PRN Reason: Insomnia Last Admin: 05/07/25 23:48 Dose: 3 mg Mesalamine (Mesalamine 400 Mg Cap.Drtab.) 800 mg PO TID [facility] Last Admin: 05/08/25 07:47 Dose: 800 mg Methadone HCl (Methadone Hcl 20 Mg/2 Ml Oral.Conc) 50 mg PO DAILY [facility] Last Admin: 05/08/25 07:46 Dose: 50 mg Methylprednisolone Sodium Succinate (Methylprednisolone Sod Succ 40 Mg Vial) 40 mg IVPUSH Q12H [facility] Last Admin: 05/07/25 23:48 Dose: 40 mg Metoprolol Tartrate (Metoprolol Tartrate 50 Mg Tablet) 50 mg PO BID [facility]; Protocol Last Admin: 05/08/25 07:48 Dose: 50 mg Omeprazole (Omeprazole 20 Mg Capsule.Dr) 20 mg PO DAILY@0630 [facility] Last Admin: 05/08/25 05:13 Dose: 20 mg Sodium Chloride (0.9 % Sodium Chloride Flush 3 Ml Syringe) 3 ml IVFLUSH QSHIFT [facility] Last Admin: 05/08/25 07:48 Dose: Not Given Zolpidem Tartrate (Zolpidem Tartrate 5 Mg Tablet) 5 mg PO BEDTIME [facility] Last Admin: 05/07/25 20:59 Dose: 5 mg Home Medications ?Medication ?Instructions ?Recorded ?Confirmed ?Last Taken ?Type metoprolol tartrate 50 mg tablet 50 mg PO BID 03/03/21 05/07/25 05/06/25 History rosuvastatin 40 mg tablet 40 mg PO BEDTIME 03/03/2105/06/25 History zolpidem 10 mg tablet 1 tab PO BEDTIME 03/03/2105/06/25 History ferrous gluconate 324 mg (38 mg 1 tab PO DAILY 1 05/07/25 05/06/25 History iron) tablet lidocaine 5 % topical patch 1 patch topical DAILY 07/0305/07/25 05/06/25 History cyanocobalamin (vitamin B-12) 1 tab PO DAILY 07/07/22 05/07/25 05/06/25 History 1,000 mcg tablet gabapentin 300 mg capsule 300 mg PO TID 02/17/2305/0705/06/25 History methadone 10 mg/mL oral concentrate 50 mg PO DAILY 06/0405/08/25 05/07/25 History lisinopril 20 mg tablet 20 mg PO DAILY 11/01/2404/1405/06/25 History pantoprazole 40 mg tablet,delayed 40 mg PO DAILY@0630 11/01/24 05/07/25 05/06/25 History release acetaminophen 650 mg 650 mg PO Q8H PRN mild pain 05/07/25 05/07/25 Unknown History tablet,extended release felodipine 5 mg tablet,extended 5 mg PO BEDTIME 05/07/25 05/06/25 History release 24 hr mesalamine 400 mg capsule (with 800 mg PO TID 05/07/25 05/07/25 05/06/25 History delayed release tablets inside) Physical Exam Vital Signs: Last Vital Signs Temp 97.8 F 05/08/25 07:29 Pulse 78 05/08/25 07:29 Resp 18 05/08/25 07:29 BP 167/86 H 05/08/25 07:29 Pulse Ox 96 05/08/25 07:29 O2 Del Method Room Air 05/08/25 07:29 BMI result Body Mass Index 33.4 Const General: no acute distress, alert and awake Resp Effort & Inspection: normal respiratory effort and able to speak in complete sentences Auscultation: clear to auscultation bilaterally Cardio Rate: regular rate Rhythm: regular rhythm Heart sounds: S1 normal heart sound present and S2 normal heart sound present GI Palpation (GI): Soft to palpation and nontender General: Yes no CVA tenderness Back/Spine/Pelvis Back: no CVA tenderness Skin Rashes: no rashes Extrem General: No edema and No pedal edema Results Lab Results 05/08/25 05:52 05/08/25 05:52 Lab results: Chemistry 05/07/25 05/08/25 12:30 05:52 Sodium 141 135 Potassium 4.3 4.6 Carbon Dioxide 17 L 17 L BUN 33 H 32 H Creatinine 3.25 H 2.14 H Calcium 8.7 D 8.2 L Hematology 05/07/25 05/08/25 12:30 05:52 WBC 5.5 4.7 L Hgb 12.0 L 11.1 L Plt Count 130 L D 121 L Urinalysis 05/07/25 15:03 Urine Color Yellow Urine Appearance Clear Urine pH 6.0 Ur Specific [place] >= 1.030 H Urine Protein 100 (2+) H Urine Glucose (UA) Negative Urine Ketones Negative Urine Blood Negative Urine Nitrite Negative Ur Leukocyte Esterase Negative Urine RBC 0-2 Urine WBC 0-5 Ur Squamous Epith Cells 6-10 Hyaline Casts 6-10 Assessment and Plan (1) Acute kidney injury superimposed on CKD: Status: Acute Plan CITLALY likely multifactorial- hemodynamic CITLALY in combination with dehydration in setting of almas inhibitor use. improving recommend continuing to encourage hydration recommend avoiding hypotension recommend holding lisinopril until creatinine returns to baseilne may consider adding amlodipine given blood pressure remains suboptimally controlled continue supportive care. Will arrange for outpatient follow up upon discharge. Discussed with Dr Cisneros. Procedures Date of Service Date of Service: 05/08/25
[2025-05-08] MEDS: methylPREDNISolone Sod Succ 40 MG VIAL IVPUSH ×2 (10:26→23:22)
--- NOTE | 2025-05-08 10:29 | HO.PM.IMPN ---
Subjective Subjective Date of Service: 05/08/25 Interval History: Admitted for CITLALY and PNA. Patient reports that he feels hungry. Patient continue with significant wheezing, no increased work of breathing, reports that he feels overall better. Denies any abdominal pain or discomfort. Loose bowels continue at baseline. Renal FX improving. Review of Systems Denies any shortness of breath, chest pain, dizziness, lightheadedness, abdominal pain or discomfort, nausea vomiting or diarrhea Physical Exam Vital Signs: Vital Signs: Last Vital Signs Temp 97.8 F 05/08/25 07:29 Pulse 78 05/08/25 07:29 Resp 18 05/08/25 07:29 BP 167/86 H 05/08/25 07:29 Pulse Ox 96 05/08/25 07:29 O2 Del Method Room Air 05/08/25 07:29 BMI result Body Mass Index 33.4 CONST: Alert and oriented, in NAD. Well nourished HEENT: Normocephalic, atraumatic, MMM, Eyes clear, Neck supple RESP: Lungs with wheezing throughout. No increased WOB. HEART:,RRR, S1, S2. no edema GI:Abdomen Soft NT, ND. + BS times four :Deferred SKIN: Warm dry and intact, no visible lesions or rashes NEURO:CN II-XII Intact bilaterally, Sensation intact. Speech clear PSYCH: Normal affect Objective Data Active Medications Acetaminophen (Acetaminophen 325 Mg Tablet) 650 mg PO Q6H PRN PRN Reason: Pain, Mild 1-3,fever,headache Albuterol/Ipratropium (Albuterol/Iprat 2.5/0.5mg 3 Ml Ampul.Neb) 3 ml INHALE Q6H PRN PRN Reason: Shortness of Breath/Wheezing Last Admin: 05/08/25 03:29 Dose: 3 ml Documented By: VILMA Atorvastatin Calcium (Atorvastatin Calcium 80 Mg Tablet) 80 mg PO BEDTIME [facility] Last Admin: 05/07/25 20:56 Dose: 80 mg Documented By: JOHAN Calcium Carbonate (Calcium Carbonate 750 Mg Tab.Chew) 750 mg PO Q4H PRN PRN Reason: Heartburn Ceftriaxone Sodium (Ceftriaxone Sodium 1 Gm Vial) 1 gm IVPUSH Q24H [facility] Cyanocobalamin (Cyanocobalamin (Vitamin B-12) 1,000 Mcg Tablet) 1,000 mcg PO DAILY [facility] Last Admin: 05/08/25 07:48 Dose: 1,000 mcg Documented By: LAVON Enoxaparin Sodium (Enoxaparin Sodium 40 Mg/0.4 Ml Syringe) 40 mg SUBCUT Q24H [facility] Last Admin: 05/07/25 17:40 Dose: 40 mg Documented By: GRAZIC Gabapentin (Gabapentin 300 Mg Capsule) 300 mg PO TID [facility] Last Admin: 05/08/25 07:48 Dose: 300 mg Documented By: LAVON Azithromycin 250 mg/ Sodium (Chloride) 250 mls @ 125 mls/hr IV Q24H [facility] Sodium Chloride (Ns) 1,000 mls @ 100 mls/hr IVCONT .Q10H [facility] Last Admin: 05/08/25 02:56 Dose: 100 mls/hr Documented By: JOHAN Lisinopril (Lisinopril 20 Mg Tablet) 20 mg PO DAILY [facility]; Protocol Last Admin: 05/08/25 07:48 Dose: 20 mg Documented By: LAVON Magnesium Hydroxide (Milk Of Magnesia 30 Ml Oral.Susp) 30 ml PO DAILY PRN PRN Reason: Constipation Melatonin (Melatonin 3 Mg Tablet) 3 mg PO BEDTIME PRN PRN Reason: Insomnia Last Admin: 05/07/25 23:48 Dose: 3 mg Documented By: JOHAN Mesalamine (Mesalamine 400 Mg Cap.Drtab.) 800 mg PO TID [facility] Last Admin: 05/08/25 07:47 Dose: 800 mg Documented By: LAVON Methadone HCl (Methadone Hcl 20 Mg/2 Ml Oral.Conc) 50 mg PO DAILY [facility] Last Admin: 05/08/25 07:46 Dose: 50 mg Documented By: LAVON Co-signed By: SIMIN Methylprednisolone Sodium Succinate (Methylprednisolone Sod Succ 40 Mg Vial) 40 mg IVPUSH Q12H [facility] Last Admin: 05/08/25 10:26 Dose: 40 mg Documented By: LAVON Metoprolol Tartrate (Metoprolol Tartrate 50 Mg Tablet) 50 mg PO BID [facility]; Protocol Last Admin: 05/08/25 07:48 Dose: 50 mg Documented By: LAVON Omeprazole (Omeprazole 20 Mg Capsule.Dr) 20 mg PO DAILY@0630 [facility] Last Admin: 05/08/25 05:13 Dose: 20 mg Documented By: JOHAN Sodium Chloride (0.9 % Sodium Chloride Flush 3 Ml Syringe) 3 ml IVFLUSH QSHIFT [facility] Last Admin: 05/08/25 07:48 Dose: Not Given Documented By: LAVON Non-Admin Reason: IV Running Zolpidem Tartrate (Zolpidem Tartrate 5 Mg Tablet) 5 mg PO BEDTIME [facility] Last Admin: 05/07/25 20:59 Dose: 5 mg Documented By: JOHAN Labs 05/08/25 05:52 05/08/25 05:52 Labs: Laboratory Results - last 24 hr 05/07/25 05/07/25 05/07/25 12:30 14:31 15:03 MCV 93.2 MCH 30.1 MCHC 32.3 RDW 15.5 Plt Count 130 L D MPV 9.6 Immature Gran % (Auto) 0.4 Neut % (Auto) 58.7 Lymph % (Auto) 27.8 [place] % (Auto) 10.5 Eos % (Auto) 2.2 Baso % (Auto) 0.4 Lymph # (Auto) 1.5 [place] # (Auto) 0.6 Eos # (Auto) 0.1 Baso # (Auto) 0.0 Abs Immat Gran (auto) 0.02 Absolute Neuts (auto) 3.2 Absolute Nucleated RBC 0.000 Nucleated RBC % (auto) 0.0 Anion Gap 15 Estim Creat Clear Calc 28.5 Estimated GFR 20 Random Glucose 103 Lactic Acid 1.3 Calcium 8.7 D Magnesium 1.6 Total Bilirubin 0.5 AST 25 ALT 14 Alkaline Phosphatase 80 Troponin I High Sens 5.3 Total Protein 8.1 H Albumin 4.0 Urine Color Yellow Urine Appearance Clear Urine pH 6.0 Ur Specific [place] >= 1.030 H Urine Protein 100 (2+) H Urine Glucose (UA) Negative Urine Ketones Negative Urine Blood Negative Urine Nitrite Negative Ur Leukocyte Esterase Negative Urine RBC 0-2 Urine WBC 0-5 Ur Squamous Epith Cells 6-10 Urine Bacteria None Seen Hyaline Casts 6-10 Stl C. cayetanensis PCR Stool Rotavirus A PCR Stl Adenov F 40/41 PCR Stool Astrovirus (PCR) Stool Campylobacter PCR Stool Cryptosporidium PCR Stl Sh Tox Pr E STEC PCR Stool E coli O157 PCR Stl Enterotoxigenic E PCR Stool EPEC (PCR) Stool EAEC (PCR) Stl E. histolytica PCR Stool Giardia Lamblia PCR Stl P. shigelloides PCR Stool Salmonella PCR Stool Sapovirus (PCR) Stl Shigella/EIEC PCR St Y.enterocolitica PCR Stool Vibrio (PCR) Stl Vibrio cholerae PCR Stl Norovirus GI/GII PCR Urine Opiates Screen POSITIVE H Ur Buprenorphine Scrn Not Detected Ur Oxycodone Screen Not Detected Urine Methadone Screen Positive H Urine Fentanyl Screen POSITIVE H Ur Barbiturates Screen Not Detected Ur Phencyclidine Scrn Not Detected Ur Amphetamines Screen Not Detected U Benzodiazepines Scrn Not Detected Urine Cocaine Screen POSITIVE H U Marijuana (THC) Screen Not Detected C. difficile Tox B Gene 05/07/25 05/08/25 21:00 05:52 MCV 91.7 MCH 29.8 MCHC 32.5 RDW 14.9 Plt Count 121 L MPV 9.4 Immature Gran % (Auto) 0.9 H Neut % (Auto) 85.0 H Lymph % (Auto) 11.3 L [place] % (Auto) 2.6 Eos % (Auto) 0.0 Baso % (Auto) 0.2 Lymph # (Auto) 0.5 L [place] # (Auto) 0.1 Eos # (Auto) 0.0 Baso # (Auto) 0.0 Abs Immat Gran (auto) 0.04 H Absolute Neuts (auto) 4.0 Absolute Nucleated RBC 0.000 Nucleated RBC % (auto) 0.0 Anion Gap 16 Estim Creat Clear Calc 43.3 Estimated GFR 32 Random Glucose 217 H Lactic Acid Calcium 8.2 L Magnesium Total Bilirubin AST ALT Alkaline Phosphatase Troponin I High Sens Total Protein Albumin Urine Color Urine Appearance Urine pH Ur Specific [place] Urine Protein Urine Glucose (UA) Urine Ketones Urine Blood Urine Nitrite Ur Leukocyte Esterase Urine RBC Urine WBC Ur Squamous Epith Cells Urine Bacteria Hyaline Casts Stl C. cayetanensis PCR Not Detected Stool Rotavirus A PCR Not Detected Stl Adenov F 40/41 PCR Not Detected Stool Astrovirus (PCR) Not Detected Stool Campylobacter PCR Not Detected Stool Cryptosporidium PCR Not Detected Stl Sh Tox Pr E STEC PCR Not Detected Stool E coli O157 PCR Not applicable Stl Enterotoxigenic E PCR Not Detected Stool EPEC (PCR) Not Detected Stool EAEC (PCR) Not Detected Stl E. histolytica PCR Not Detected Stool Giardia Lamblia PCR Not Detected Stl P. shigelloides PCR Not Detected Stool Salmonella PCR Not Detected Stool Sapovirus (PCR) Not Detected Stl Shigella/EIEC PCR Not Detected St Y.enterocolitica PCR Not Detected Stool Vibrio (PCR) Not Detected Stl Vibrio cholerae PCR Not Detected Stl Norovirus GI/GII PCR Not Detected Urine Opiates Screen Ur Buprenorphine Scrn Ur Oxycodone Screen Urine Methadone Screen Urine Fentanyl Screen Ur Barbiturates Screen Ur Phencyclidine Scrn Ur Amphetamines Screen U Benzodiazepines Scrn Urine Cocaine Screen U Marijuana (THC) Screen C. difficile Tox B Gene NEGATIVE Assessment and Plan (1) Acute kidney injury superimposed on CKD: Status: Acute (2) Bilateral pneumonia: Status: Acute Plan 60-year-old male with past medical history of hypertension, hyperlipidemia, GERD, Crohn's disease, status post reversal of ileostomy 10 years ago, total colectomy, chronic diarrhea, opioid use disorder on methadone, states she kind of kidney disease presents to the ED for chest pain, cough and shortness of breath for 2-3 days. He was found to have a bibasilar pneumonia and CITLALY. Acute hypoxic respiratory failure secondary to pneumonia Patient with no history of COPD, asthma or smoking. Chest x-ray demonstrated bibasilar opacities suspicious for pneumonia, no leukocytosis. Will obtain Chest CT Still wheezing Continue ceftriaxone and azithromycin Continue oxygen as needed Continue Solu-Medrol twice daily Pulmonology Consult Acute on chronic renal failure Seen by nephrology- Recommendations appreciated Creatinine improved to 2.14 Baseline creatinine 1.5-2 Continue IVF Hold lisinopril. Will need follow up with nephrology oupatient Diarrhea Patient with a history of Crohn's, Total colectomy and reversal of ileostomy, now with chronic diarrhea CDIFF negative Resume Home immodium Hypertension/HLD Start Feldopine at hs. Lisinopril on hold. Polysubstance abuse on methadone Reports history of heroin and cocaine abuse Patient denies history of smoking Continue methadone home dosing CODE STATUS: FULL CODE VTE Prophylaxis: Lovenox. Quality Stroke Does the patient have a stroke diagnosis?: No VTE Prior VTE?: No VTE Risk Level:: Medical - moderate - high VTE Device Contraindication: Treatment Not Indicated VTE Drug Contraindication: N/A - Med Ordered Quality Stroke Does the patient have a stroke diagnosis?: No VTE Prior VTE?: No VTE Risk Level:: Medical - moderate - high VTE Device Contraindication: Treatment Not Indicated VTE Drug Contraindication: N/A - Med Ordered
[2025-05-08 11:39] LABS: B Type Natriuretic Peptide 171 pg/mL (<100)
[2025-05-08] MEDS: Furosemide 20 MG/2 ML VIAL IVPUSH (12:10)
--- NOTE | 2025-05-08 12:16 | P.CONPL_ITS ---
History of Present Illness History of Present Illness Consult date: 05/08/25 Chief complaint: Hypoxemia,Pneumonia Narrative: 60-year-old gentleman, nonsmoker, with underlying hypertension, hyperlipidemia, Crohn's/uses status post colectomy with ileostomy and ileostomy reversal, polysubstance abuse, CKD admitted on 05/07/2025 with hypoxemia and treated for empiric pneumonia. Today patient with normal O2 saturation on room air, no leukocytosis, and no respiratory complaints, however with adventitious lung sounds for which pulmonary evaluation is requested. Review of Systems 2 Constitutional: Constitutional: Denies daytime sleepiness, Denies excessive sweating, Denies fatigue, Denies fever(s), Denies lethargy, Denies malaise, Denies night sweats, Denies snoring and Denies weight loss Eyes: Eyes: Denies blurry vision and Denies itchy eyes ENT: Denies nasal congestion, Denies post nasal drip, Denies sinus pain, Denies sinus pressure and Denies other ( Thrush) Cardiovascular: Cardiovascular: Denies chest pain, Denies pedal edema, Denies dyspnea, Denies orthopnea and Denies paroxysmal nocturnal dyspnea Respiratory: Respiratory: Denies cough, Denies hemoptysis, Denies excessive phlegm production, Denies dyspnea, Denies snoring and Denies wheezing Gastrointestinal: Gastrointestinal: Denies abdominal pain and Denies heartburn Musculoskeletal: Musculoskeletal: Denies myalgias, Denies arthralgias and Denies joint swelling Integumentary/Breasts: Skin/Breast: Denies rash Neurologic: Denies memory loss and Denies seizure-like activity Psychiatric: Psychiatric: Denies abnormal sleep pattern, Denies anxiety and Denies memory loss Endocrine: Endocrine: Denies excessive sweating, Denies fatigue and Denies heat intolerance Hematologic/Lymphatic: Hematologic/Lymphatic: Denies easy bruising Allergic/Immunologic: Allergic/Immunologic: Denies itchy eyes, Denies seasonal rhinorrhea and Denies wheezing PMFSH Past Medical History Medical History Clostridium difficile carrier Opioid use disorder Constipation Crohn's disease of both small and large intestine CKD (chronic kidney disease) Ulcerative colitis HLD (hyperlipidemia) Colitis HTN (hypertension) Family History Family History Mother Stroke Diabetes mellitus HTN (hypertension), benign Hyperlipidemia Brother Diabetes mellitus Surgical History Surgical History History of esophagogastroduodenoscopy (EGD) Hx of colonoscopy H/O total colectomy H/O cervical spine surgery History of colostomy reversal Social History Social History Household Members: None Housing: Apartment Housing Other:: Rents a room Do you presently have visiting nurse or other home services: No Alcohol intake: current Alcohol intake frequency: does not drink Comment: Chirag Patient Tobacco Use Status: Never used Tobacco Smoked in Last 30 Days: No e-Cigarette/Vaping Use: Never Used Second Hand Smoke Exposure: No Use of substances other than those prescribed or required for medical reasons: No Substance Use Type: Heroin Currently Displaying Signs/Symptoms of Drug Intoxication Withdrawal: No Have you been hit, kicked, punched, or otherwise hurt by someone within the past year? If so, by whom?: No Do you feel safe in your current relationship?: Yes Is there a partner from a previous relationship who is making you feel unsafe now?: No Are you made to feel afraid or neglected: No Advance Directives: Yes Advance Directives on File: Yes Advance Directives Date on File: 03/08/21 Do you have a plan to hurt others: No Plan Recently lost weight without trying: No How much weight loss: Not applicable Eating poorly because of decreased appetite: No Nutrition screen score: 0 Nutrition Risks: No Nutritional Risk Poor oral hygiene: No service: No Current occupational status: unemployed Meds Allergies Allergy/AdvReac Type Severity Reaction Status Date / Time Iodinated Contrast Media (IV Allergy Intermediate HIVES Verified 05/07/25 11:56 CONTRAST) prednisone (PREDNISONE) Allergy Mild RASH Verified 05/07/25 11:56 Active Medications: Current Medications Acetaminophen (Acetaminophen 325 Mg Tablet) 650 mg PO Q6H PRN PRN Reason: Pain, Mild 1-3,fever,headache Albuterol/Ipratropium (Albuterol/Iprat 2.5/0.5mg 3 Ml Ampul.Neb) 3 ml INHALE Q6H PRN PRN Reason: Shortness of Breath/Wheezing Last Admin: 05/08/25 03:29 Dose: 3 ml Amlodipine Besylate (Amlodipine Besylate 5 Mg Tablet) 5 mg PO BEDTIME [facility] Atorvastatin Calcium (Atorvastatin Calcium 80 Mg Tablet) 80 mg PO BEDTIME [facility] Last Admin: 05/07/25 20:56 Dose: 80 mg Calcium Carbonate (Calcium Carbonate 750 Mg Tab.Chew) 750 mg PO Q4H PRN PRN Reason: Heartburn Ceftriaxone Sodium (Ceftriaxone Sodium 1 Gm Vial) 1 gm IVPUSH Q24H [facility] Cyanocobalamin (Cyanocobalamin (Vitamin B-12) 1,000 Mcg Tablet) 1,000 mcg PO DAILY [facility] Last Admin: 05/08/25 07:48 Dose: 1,000 mcg Enoxaparin Sodium (Enoxaparin Sodium 40 Mg/0.4 Ml Syringe) 40 mg SUBCUT Q24H [facility] Last Admin: 05/07/25 17:40 Dose: 40 mg Ferrous Sulfate (Ferrous Sulfate 324 Mg Tablet.Dr) 324 mg PO DAILY [facility] Gabapentin (Gabapentin 300 Mg Capsule) 300 mg PO TID [facility] Last Admin: 05/08/25 07:48 Dose: 300 mg Azithromycin 250 mg/ Sodium (Chloride) 250 mls @ 125 mls/hr IV Q24H [facility] Sodium Chloride (Ns) 1,000 mls @ 100 mls/hr IVCONT .Q10H [facility] Last Admin: 05/08/25 12:12 Dose: Not Given Lisinopril (Lisinopril 20 Mg Tablet) 20 mg PO DAILY [facility]; Protocol On Hold: 05/08/25 10:49 Last Admin: 05/08/25 07:48 Dose: 20 mg Loperamide HCl (Loperamide Hcl 2 Mg Capsule) 2 mg PO Q8H PRN PRN Reason: loose stool Magnesium Hydroxide (Milk Of Magnesia 30 Ml Oral.Susp) 30 ml PO DAILY PRN PRN Reason: Constipation Melatonin (Melatonin 3 Mg Tablet) 3 mg PO BEDTIME PRN PRN Reason: Insomnia Last Admin: 05/07/25 23:48 Dose: 3 mg Mesalamine (Mesalamine 400 Mg Cap.Drtab.) 800 mg PO TID [facility] Last Admin: 05/08/25 07:47 Dose: 800 mg Methadone HCl (Methadone Hcl 20 Mg/2 Ml Oral.Conc) 50 mg PO DAILY [facility] Last Admin: 05/08/25 07:46 Dose: 50 mg Methylprednisolone Sodium Succinate (Methylprednisolone Sod Succ 40 Mg Vial) 40 mg IVPUSH Q12H [facility] Last Admin: 05/08/25 10:26 Dose: 40 mg Metoprolol Tartrate (Metoprolol Tartrate 50 Mg Tablet) 50 mg PO BID [facility]; Protocol Last Admin: 05/08/25 07:48 Dose: 50 mg Omeprazole (Omeprazole 20 Mg Capsule.Dr) 20 mg PO DAILY@0630 [facility] Last Admin: 05/08/25 05:13 Dose: 20 mg Sodium Chloride (0.9 % Sodium Chloride Flush 3 Ml Syringe) 3 ml IVFLUSH QSHIFT [facility] Last Admin: 05/08/25 07:48 Dose: Not Given Zolpidem Tartrate (Zolpidem Tartrate 5 Mg Tablet) 5 mg PO BEDTIME [facility] Last Admin: 05/07/25 20:59 Dose: 5 mg Home Medications ?Medication ?Instructions ?Recorded ?Confirmed ?Last Taken ?Type metoprolol tartrate 50 mg tablet 50 mg PO BID 03/03/21 05/07/25 05/06/25 History rosuvastatin 40 mg tablet 40 mg PO BEDTIME 03/03/2105/06/25 History zolpidem 10 mg tablet 1 tab PO BEDTIME 03/03/2105/06/25 History ferrous gluconate 324 mg (38 mg 1 tab PO DAILY 1 05/07/25 05/06/25 History iron) tablet lidocaine 5 % topical patch 1 patch topical DAILY 07/0305/07/25 05/06/25 History cyanocobalamin (vitamin B-12) 1 tab PO DAILY 07/07/22 05/07/25 05/06/25 History 1,000 mcg tablet gabapentin 300 mg capsule 300 mg PO TID 02/17/2305/0705/06/25 History methadone 10 mg/mL oral concentrate 50 mg PO DAILY 06/0405/08/25 05/07/25 History lisinopril 20 mg tablet 20 mg PO DAILY 11/01/2404/1405/06/25 History pantoprazole 40 mg tablet,delayed 40 mg PO DAILY@0630 11/01/24 05/07/25 05/06/25 History release acetaminophen 650 mg 650 mg PO Q8H PRN mild pain 05/07/25 05/07/25 Unknown History tablet,extended release felodipine 5 mg tablet,extended 5 mg PO BEDTIME 05/07/25 05/06/25 History release 24 hr mesalamine 400 mg capsule (with 800 mg PO TID 05/07/25 05/07/25 05/06/25 History delayed release tablets inside) Physical Exam 2 Vital Signs: Vital Signs: Last Vital Signs Temp 97.8 F 05/08/25 07:29 Pulse 78 05/08/25 07:29 Resp 18 05/08/25 07:29 BP 167/86 H 05/08/25 07:29 Pulse Ox 96 05/08/25 07:29 O2 Del Method Room Air 05/08/25 07:29 BMI result Body Mass Index 33.4 Const: General: no acute distress and alert Nutritional Appearance: not obese Orientation/consciousness: Other orientation findings ( oriented) HEENT: Head: Yes atraumatic Eyes: General: appearance normal, both eyes and all related structures S clerae: sclerae normal EOM: EOMs intact bilaterally Neck: Neck: Yes supple Lymphatic: no lymphadenopathy noted Resp: Effort & Inspection: normal respiratory effort and no use of accessory muscles Auscultation: crackles Cardio: Rate: regular rate Rhythm: regular rhythm Heart sounds: no gallops, no murmurs and no rubs Skin: General skin exam: other ( warm) Extrem: General: No clubbing, No cyanosis and No edema Results Laboratory Findings 05/08/25 05:52 05/08/25 05:52 Abnormal lab findings: Abnormal Labs 05/07/25 05/07/25 05/08/25 12:30 15:03 05:52 WBC 4.7 L RBC 3.99 L 3.73 L Hgb 12.0 L 11.1 L Hct 37.2 L 34.2 L Plt Count 130 L D 121 L Immature Gran % (Auto) 0.9 H Neut % (Auto) 85.0 H Lymph % (Auto) 11.3 L Lymph # (Auto) 0.5 L Abs Immat Gran (auto) 0.04 H Chloride 113 H Carbon Dioxide 17 L 17 L BUN 33 H 32 H Creatinine 3.25 H 2.14 H Random Glucose 217 H Calcium 8.2 L B-Natriuretic Peptide Total Protein 8.1 H Ur Specific [place] >= 1.030 H Urine Protein 100 (2+) H Urine Opiates Screen POSITIVE H Urine Methadone Screen Positive H Urine Fentanyl Screen POSITIVE H Urine Cocaine Screen POSITIVE H 05/08/25 11:13 WBC RBC Hgb Hct Plt Count Immature Gran % (Auto) Neut % (Auto) Lymph % (Auto) Lymph # (Auto) Abs Immat Gran (auto) Chloride Carbon Dioxide BUN Creatinine Random Glucose Calcium B-Natriuretic Peptide 171 H Total Protein Ur Specific [place] Urine Protein Urine Opiates Screen Urine Methadone Screen Urine Fentanyl Screen Urine Cocaine Screen Assessment and Plan (1) Acute hypoxic respiratory failure: Status: Acute Plan Impression: 60-year-old gentleman with underlying CKD, UC/Crohn's, polysubstance abuse admitted with transient hypoxemia that is now resolved. CT chest with no underlying interstitial lung disease or lobar pneumonia. Patient essentially at baseline respiratory status at this time. Initial symptoms may be related to transient aspiration on the background of polysubstance abuse. Currently with no wheezing on respiratory exam, but mild bilateral crackles. Recommendation: No evidence of pneumonia, consider discontinuation of empiric antibiotics, may have had aspiration component initially. Consider 2D echocardiogram, empiric diuresis, and brief systemic glucocorticoids course. Procedures Date of Service Date of Service: 05/08/25
[2025-05-08 12:40] LABS: Influenza A PCR NEGATIVE (Negative); Influenza B PCR NEGATIVE (Negative); Resp Syncy Virus RNA Qual PCR NEGATIVE (Negative); SARS COV2 PCR INHOUSE NEGATIVE (Negative)
--- NOTE | 2025-05-08 13:45 | PM.EVENT ---
Event Note Date of Service: 05/08/25 Event Note: Patient seen by pulmonology, recommendations appreciated. We will DC antibiotics, continue Solu-Medrol, we will obtain 2D echo, BNP mildly elevated 171. Patient received 1 dose of IV Lasix. DC IV fluids Time Spent With Patient Time: Total time managing care of this patient today ____ minutes.
[2025-05-08 15:27] VITALS: BP 180/87; PULSE 70; RESP 16; TEMP 36.6; O2SAT 97
[2025-05-08] MEDS: 0.9 % Sodium Chloride Flush 3 ML SYRINGE IVFLUSH ×2 (15:53→20:31)
[2025-05-08 16:55] LABS: Creatinine Urine 15.69 mg/dL; Total Protein Urine Random < 7 mg/dL (<12)
[2025-05-08] MEDS: Enoxaparin Sodium 40 MG/0.4 ML SYRINGE SUBCUT (16:55)
[2025-05-08 19:34] VITALS: BP 149/98; PULSE 67; RESP 18; TEMP 36.6; O2SAT 96
[2025-05-08] MEDS: Atorvastatin Calcium 80 MG TABLET PO (20:26)
[2025-05-08] MEDS: Zolpidem Tartrate 5 MG TABLET PO (20:26)
[2025-05-08] MEDS: amLODIPine Besylate 5 MG TABLET PO (20:26)
[2025-05-08 20:34] VITALS: PULSE 82; RESP 16; O2SAT 97
--- NOTE | 2025-05-08 20:37 | PC.RT ---
RN called to see pt for increased sob. Pt was sob wtih Exp wheezes and fine crackles. Pt has no copd/asthma but + polysubstance abuse. + lobar PNA as well. pt marcio well. if pt requests another tx tonight, then pt should be on scheduled neb tx's.
[2025-05-08] MEDS: Melatonin 3 MG TABLET PO (23:27)
[2025-05-09 03:24] VITALS: BP 161/73; PULSE 71; RESP 20; TEMP 36.7; O2SAT 98
[2025-05-09 05:13] VITALS: PULSE 66; RESP 20; O2SAT 95
[2025-05-09] MEDS: Albuterol/Iprat 2.5/0.5MG 3 ML AMPUL.NEB INHALE (05:13)
[2025-05-09] MEDS: Omeprazole 20 MG CAPSULE.DR PO (05:42)
--- NOTE | 2025-05-09 07:00 | CA_ITS ---
Transthoracic Echocardiogram Patient (Last, First, Middle): Jayden Pierce, Gender: Male Date of : 1965 Age: 60 Procedure Date: 05/09/2025 Procedure Type: Transthoracic Echocardiogram Location: S3E Height: 175.26 cm Weight: 102.06 kg BSA: 2.17 m2 Heart Rate: bpm BP: 159 / 82 mmHg Manager Cardiac: Referring MD: Malina Mcnally DNP Symptoms: SOB Study Quality: Adequate ECG Rhythm: Sinus Conclusions: - The left ventricular systolic function is normal. The calculated ejection fraction is 63% by biplane method. - No obvious valvular pathology seen on this study. - There is mild dilatation of the ascending aorta measuring 4.20 cm. Findings Left Ventricle Normal left ventricular cavity size. There is mildly increased left ventricular wall thickness. The left ventricular systolic function is normal. The calculated ejection fraction is 63% by biplane method. There is no evidence of regional wall motion abnormalities. Diastolic function is normal for age. Right Ventricle Normal right ventricular cavity size and systolic function. Atria Both atria are normal in size. Aortic Valve The aortic valve structure and function is likely normal. There is a normal trileaflet aortic valve. There is no aortic valve stenosis. There is no aortic valve regurgitation. Mitral Valve The mitral valve appears normal. There is no mitral valve regurgitation. There is no mitral valve stenosis. Pulmonic Valve The pulmonic valve is likely normal. Tricuspid Valve There is trace tricuspid valve regurgitation. There is no evidence of pulmonary hypertension. Great Vessels There is mild dilatation of the ascending aorta measuring 4.20 cm. Venous The inferior vena cava is normal in size and collapses greater than 50% with inspiration. Pericardium/Pleural There is no evidence of pericardial effusion. Prior Study Comparison No prior study available for comparison. Recommendations, Care & Conclusions No obvious valvular pathology seen on this study. Measurements 2D Linear Measurements IVSd: 1.27 0.6-0.9/0.6-1.0 cm LVIDd: 4.78 3.9-5.3/4.2-5.9 cm LVIDd Index: 2.20 2.4-3.2/2.2-3.1 cm/m2 LVIDs: 2.90 2.0-3.6 cm LVPWd: 1.36 0.7-1.1 cm Ao Root: 4.10 2.1-3.5 cm LA Diam: 3.80 2.7-3.8/3.0-4.0 cm LAIDs Index: 1.75 1.5-2.3 cm/m2 LV Mass: 309.56 67-162/88-224 g LV Mass Index: 142.65 43-95/49-115 g/m2 LVOT Diam: 2.20 3.0+(-)1.3 cm 2D Systolic Function EF 4C: 66.40 >55% EF 2C: 58.20 >55% EF BiP: 63.20 >55% Mitral Valve MV Pk E: 0.49 MV PK A: 0.70 MV Decel Time: 199.00 E/A: 0.70 E'Lateral: 4.68 E'Medial: 6.96 E/E' Med: 7.00 E/E' Lat: 10.40 PHT: 58.00 MVA PHT: 3.79 Decel [place]: 2.46 Aortic Valve AoV Pk Fran: 1.37 AoV Mn Fran: 0.89 AoV VTI: 0.32 AoV Pk Grad: 8.00 Aov Mn Grad: 4.00 JEANNA Cont.VTI: 2.71 LVOT LVOT Pk Fran: 0.89 LVOT Mn Fran: 0.63 LVOT VTI: 0.23 LVOT Pk Grad: 3.00 LVOT Mn Grad: 2.00 LVOT Diam: 2.20 LVOT Area: 3.80 Diastolic Function MV Pk E: 0.49 MV Pk A: 0.70 E/A: 0.70 E'Medial: 6.96 E/E' Med: 7.00 E' Laterial: 4.68 E/E' Lat: 10.40 Right Ventricle TAPSE (mm): 21.00 TVS' Fran: 9.00 Tricuspid Valve TR Pk Fran: 1.46 TR Pk Grad: 9.00 RA Press: 3.00 Great Vessels Aorta Ao Root-2D: 4.10 2.0-3.7 cm Ao Asc: 4.20 2.1-3.4 cm Pulmonary Valve PV Pk Fran: 1.01 Peak PV Grad: 4.00 Updated in Other Vendor System with Status of Final Babar Marquez MD electronically signed on 05/09/2025 3:53:19 PM with status of Final
[2025-05-09 07:15] VITALS: BP 159/82; PULSE 74; RESP 16; TEMP 36.7; O2SAT 97
[2025-05-09] MEDS: 0.9 % Sodium Chloride Flush 3 ML SYRINGE IVFLUSH (07:51)
[2025-05-09] MEDS: Mesalamine 400 MG CAP.DRTAB. 800 MG PO (08:00)
[2025-05-09] MEDS: Ferrous Sulfate 324 MG TABLET.DR PO (08:00)
[2025-05-09] MEDS: Metoprolol Tartrate 50 MG TABLET PO (08:00)
[2025-05-09] MEDS: Gabapentin 300 MG CAPSULE PO (08:00)
[2025-05-09] MEDS: Cyanocobalamin (Vitamin B-12) 1,000 MCG TABLET 1000 MCG PO (08:01)
[2025-05-09] MEDS: methADONE HCl 20 MG/2 ML ORAL.CONC 50 MG PO (08:01)
[2025-05-09 09:30] LABS: MANUAL DIFF FLAG NO
[2025-05-09 09:32] LABS: Basophils Percent Auto 0.1 % (0-2); Hematocrit 36.3 % (42.0-52.0); Imm Gran Abs Auto 0.14 X10*3/uL (0.00-0.03); Imm Gran Pct Auto 1.8 % (0.0-0.4); Lymphocytes Absolute Auto 0.8 X10*3/uL (1.2-4.9); Lymphocytes Percent Auto 9.6 % (20-40); Mean Corpuscular HGB Conc 33.1 g/dl (31.0-36.0); Mean Corpuscular Hemoglobin 29.9 pg (27.0-33.0); Mean Corpuscular Volume 90.3 fL (80.0-98.0); Mean Platelet Volume 10.1 fL (9.4-12.4); Monocytes Absolute Auto 0.6 X10*3/uL (0.1-1.2); Monocytes Percent Auto 7.3 % (2-11); Neutrophils Absolute Auto 6.4 x10*3/uL (2.0-8.3); Neutrophils Percent Auto 81.2 % (45-73); Platelet Count 141 X10*3/uL (160-400); Red Blood Count 4.02 X10*6/uL (4.60-5.80); Red Cell Distribution Width 14.8 % (11.0-16.0); White Blood Count 7.9 X10*3/uL (4.8-10.8)
[2025-05-09 09:47] LABS: Anion Gap 15 (12-20); Blood Urea Nitrogen 35 mg/dL (9-16); Calcium 8.3 mg/dL (8.4-10.2); Carbon Dioxide 19 mmol/L (22-29); Chloride 105 mmol/L (96-108); Creatinine Clr Calc Pharmacy 50.1; Estimated Glomerular Filt Rate 37; Glucose Random 114 mg/dL (60-115); Potassium 4.6 mmol/L (3.3-5.1); Sodium 134 mmol/L (135-145)
--- NOTE | 2025-05-09 10:04 | PM.DS ---
DS: Providers Provider Date of Service: 05/09/25 Date of admission: 05/07/25 15:15 Date of discharge: 05/09/25 Primary care physician: [facility] Consults: 05/07/25 16:29 Consult to Nephrology Routine Consulting Provider: [facility] Reason for consultation: Acute on chronic RF 05/08/25 10:37 Consult to Pulmonology Routine Consulting Provider: [facility] Reason for consultation: PNA Has provider been notified: Yes Attending physician on discharge: [facility] Discharging clinician: Malina Mcnally DS: Diagnosis Discharge Diagnosis (1) Acute hypoxic respiratory failure: Start date: 05/07/25 Status: Acute DS: Summary Hospital Course Hospital Course: 60-year-old Barbadian-speaking male with PMH significant for HTN, HLD, GERD, Crohn's disease, SP reversal of ileostomy 10 years ago, total colectomy, opioid use disorder on methadone, heroin and cocaine abuse, stage 3 CKD, presents to the ED today for evaluation of chest pain, cough and shortness of breath x2-3 days. Chest Xray initially suspicious for bibasilar PNA. Patient received Ceftriaxone, azithromycin, steroids and respiratory treatments in the ED. Patient was seen by pulmonology who determined there was no evidence of PNA and AMANDA was discontinued. Patient continued on IV steroids and will be Discharged on a prednisone taper. Additionally patient was found to have an CITLALY. Patient has a history of CKD stage 3 and Creatinine noted to be 3.25. Patient received IVF and Lisinopril was held. Creatinine improved to 1.85 at time of discharge. Patients baseline Creatinine is 1.5-2.0 and Lisinopril can be resumed on DC. CITLALY related to dehydration due to diarrhea and lisinopril. Patient will need followup with nephrology. Patient reported frequent loose stools. Stool studies negative. Final diagnoses: Acute hypoxic respiratory failure due to reactive airway from substance use Citlaly Mild fluid overload Status at Discharge Functional status at discharge: independent ambulation Overall status at discharge: patient is back to baseline Time Attestation Discharge Coordination Time (in mins): 40 Quality: Safe Use of Opioids Does Pt have an Active Cancer Diagnosis on the Problem List?: No Quality: Stroke Does the patient have a stroke diagnosis?: No Physical Exam Vital Signs: Vital Signs: Last Vital Signs Temp 98.0 F 05/09/25 07:15 Pulse 74 05/09/25 07:15 Resp 16 05/09/25 07:15 BP 159/82 H 05/09/25 07:15 Pulse Ox 97 05/09/25 07:15 O2 Del Method Room Air 05/09/25 07:15 BMI result Body Mass Index 33.4 CONST: Alert and oriented, in NAD. Well nourished HEENT: Normocephalic, atraumatic, MMM RESP: Lungs clear, RRR even and regular HEART:,RRR, S1, S2. No murmur, no edema GI:Abdomen Soft NT, ND. + BS times four :Deferred SKIN: Warm dry and intact, no visible lesions or rashes NEURO:CN II-XII Intact bilaterally, Sensation intact. Speech clear PSYCH: Normal affect DS: Data Data Completed and Pending Completed studies during hospitalization [Text1]: ECHO, CHEST XRAY Labs on day of discharge: Laboratory Results - last 24 hr 05/08/25 05/08/25 05/08/25 11:13 11:55 15:00 WBC RBC Hgb Hct MCV MCH MCHC RDW Plt Count MPV Immature Gran % (Auto) Neut % (Auto) Lymph % (Auto) [place] % (Auto) Eos % (Auto) Baso % (Auto) Lymph # (Auto) [place] # (Auto) Eos # (Auto) Baso # (Auto) Abs Immat Gran (auto) Absolute Neuts (auto) Absolute Nucleated RBC Nucleated RBC % (auto) Sodium Potassium Chloride Carbon Dioxide Anion Gap BUN Creatinine Estim Creat Clear Calc Estimated GFR Random Glucose Calcium B-Natriuretic Peptide 171 H U Random Total Protein < 7 Urine Creatinine 15.69 Protein/Creatinin Ratio TNP Influenza Type A (PCR) NEGATIVE Influenza Type B (PCR) NEGATIVE RSV RNA Qual (PCR) NEGATIVE SARS-CoV-2 RNA (RT-PCR) NEGATIVE 05/09/25 08:25 WBC 7.9 RBC 4.02 L Hgb 12.0 L Hct 36.3 L MCV 90.3 MCH 29.9 MCHC 33.1 RDW 14.8 Plt Count 141 L MPV 10.1 Immature Gran % (Auto) 1.8 H Neut % (Auto) 81.2 H Lymph % (Auto) 9.[address] [place] % (Auto) 7.3 Eos % (Auto) 0.0 Baso % (Auto) 0.1 Lymph # (Auto) 0.[address] [place] # (Auto) 0.6 Eos # (Auto) 0.0 Baso # (Auto) 0.0 Abs Immat Gran (auto) 0.14 H Absolute Neuts (auto) 6.4 Absolute Nucleated RBC 0.000 Nucleated RBC % (auto) 0.0 Sodium 134 L Potassium 4.6 Chloride 105 Carbon Dioxide 19 L Anion Gap 15 BUN 35 H Creatinine 1.85 H Estim Creat Clear Calc 50.1 Estimated GFR 37 Random Glucose 114 Calcium 8.3 L B-Natriuretic Peptide U Random Total Protein Urine Creatinine Protein/Creatinin Ratio Influenza Type A (PCR) Influenza Type B (PCR) RSV RNA Qual (PCR) SARS-CoV-2 RNA (RT-PCR) Preliminary micro results at discharge 05/07/25 15:01 Blood Culture - Preliminary Blood - Venous No growth after 24 hours. 05/07/25 14:31 Blood Culture - Preliminary Blood - Venous No growth after 24 hours. Imaging Chest x-ray: Radiologist's impression: ITS Impressions Chest X-Ray 05/07/25 11:04 IMPRESSION: Subtly increased bibasilar opacities suspicious for bibasilar pneumonia in the appropriate clinical setting. Electronically signed by: Rojelio Julien MD 05/07/2025 12:10 PM EDT RP Chest CT 05/08/25 11:31 IMPRESSION: Bronchial wall thickening in both lower lobes with associated patchy airspace opacities, compatible with pneumonia. Follow-up is recommended to document resolution. Electronically signed by: J Luis Hugo MD 05/08/2025 12:11 PM EDT Discharge Plan Discharge Anticipated Discharge Date/Time: 05/09/25 10:26 Patient Disposition: Home, Self-Care Discharge Diagnosis: Aspiration Pneumonitis, CITLALY Referrals: [place] [Primary Care Provider, Medical] - 1 Week Discharge Medications: New methylprednisolone [Medrol (Donavan)] 4 mg tablets,dose pack See Rx Instructions .ROUTE .COMPLEX Qty: 21 0RF Rx Instructions: As directed Continued metoprolol tartrate 50 mg tablet 50 mg PO BID zolpidem 10 mg tablet 1 tab PO BEDTIME rosuvastatin 40 mg tablet 40 mg PO BEDTIME ferrous gluconate 324 mg (38 mg iron) tablet 1 tab PO DAILY cyanocobalamin (vitamin B-12) 1,000 mcg tablet 1 tab PO DAILY lidocaine 5 % adhesive patch,medicated 1 patch topical DAILY gabapentin 300 mg capsule 300 mg PO TID methadone 10 mg/mL Concentrate 50 mg PO DAILY loperamide [Imodium A-D] 2 mg tablet 2 mg PO Q8H PRN (Reason: loose stool) Qty: 30 0RF felodipine 5 mg tablet extended release 24 hr 5 mg PO BEDTIME acetaminophen 650 mg tablet extended release 650 mg PO Q8H PRN (Reason: mild pain) mesalamine 400 mg capsule (with del rel tablets) 800 mg PO TID pantoprazole 40 mg tablet,delayed release (DR/EC) 40 mg PO DAILY@0630 lisinopril 20 mg tablet 20 mg PO DAILY Discharge Orders: Discharge Order (Routine); Ordered 05/09/25 Ordered By: Malina Mcnally Diet: Low fat, low cholesterol Activity on Discharge: As tolerated Stand Alone Forms: Patient Portal Discharge page Print Language: Barbadian Care Plan Goals: recovery from acute hypoxic resp failure d/t reactive airway from drug use Health Concerns: Respiratory failure that has now resolved, Acute on chronic Renal Failure Improved substance use Plan of Treatment: Complete prednisone taper as directed Follow up with Nephrology in 1 week, call to make appointment Assessment: see above Patient Instructions: Pneumonia (DC)
--- NOTE | 2025-05-09 11:06 | MHC.CM.PN ---
Addendum entered by Rosaline Padilla 05/09/25 11:11: DP: PT HAS BEEN MEDICALLY CLEARED FOR DC HOME, NO SERVICES. BROTHER WILL TRANSPORT Original Note: CM MET WITH PT AT BEDSIDE WITH OPERATIONS AND INTELLIGENCE ASSISTANT, PT STATES HE IS ABLE TO SPEAK AND UNDERSTAND [place]. PT LIVES ALONE AND IS FUNCTIONALLY INDEPENDENT. NO DME OR SERVICES. PCP AT [facility]. PT RECEIVES METHADONE FROM [facility]. DP: HOME, NO SERVICES ANTICIPATED. PT 'S BROTHER WILL TRANSPORT HOME. CM WILL CONTINUE TO FOLLOW FOR ANY CHANGE TO DC PLAN.
[2025-05-09] MEDS: methylPREDNISolone Sod Succ 40 MG VIAL IVPUSH (11:07)
== END 2025-05-09 11:59 | disposition home or self-care (01) | DRG 812 ==
LOC: HO.ED 15:18 → HO.EDOVER 15:23 → HO.S3 16:09
PROVIDERS: Internal Medicine; Nurse Practitioner Family; Physician Assistant Medical; Admitting Provider Student in an Organized Health Care Education/Training Program; Emergency Provider Emergency Medicine; PCP General Practice; Visit Provider Nurse Practitioner Family
DX: T50.901A Poisoning by unspecified drugs, medicaments and biological substances, accidental (unintentional), initial encounter (principal); J96.01 Acute respiratory failure with hypoxia; J69.0 Pneumonitis due to inhalation of food and vomit; N17.9 Acute kidney failure, unspecified; I12.9 Hypertensive chronic kidney disease with stage 1 through stage 4 chronic kidney disease, or unspecified chronic kidney disease; E86.0 Dehydration; F19.10 Other psychoactive substance abuse, uncomplicated; F14.10 Cocaine abuse, uncomplicated; N18.30 Chronic kidney disease, stage 3 unspecified; F11.20 Opioid dependence, uncomplicated; Z20.822 Contact with and (suspected) exposure to COVID-19; Z79.899 Other long term (current) drug therapy
CPT/HCPCS: 0241U; 36415; 71045; 71250; 80048; 80053; 80307; 81001; 82570; 83605; 83735; 83880; 84156; 84484; 85025; 87040; 87493; 87507; 93005; 93306; 94640; 99285; J0456; J0696; J1650; J1938; J2919; J3475

== ENCOUNTER → 2025-05-07 11:44 | Outpatient (BNV) | payer MEDICAID, SELFPAY | PROVIDERS: Admitting Provider Student in an Organized Health Care Education/Training Program; Emergency Provider Emergency Medicine; Visit Provider Internal Medicine | DX: R00.0 Tachycardia, unspecified (principal) | CPT/HCPCS: 93010 ==

== ENCOUNTER → 2025-05-07 11:58 | Outpatient (BNV) | payer MEDICAID, SELFPAY | PROVIDERS: Visit Provider Radiology Diagnostic Radiology | DX: R91.8 Other nonspecific abnormal finding of lung field (principal) | CPT/HCPCS: 71045 ==

== ENCOUNTER 2025-05-07 15:15 | Outpatient (BNV) | payer MEDICAID, SELFPAY | END 2025-05-09 07:00 | PROVIDERS: Admitting Provider Student in an Organized Health Care Education/Training Program; Emergency Provider Emergency Medicine; PCP General Practice; Visit Provider Internal Medicine | DX: I71.21 Aneurysm of the ascending aorta, without rupture (principal) | CPT/HCPCS: 93306 ==

== ENCOUNTER 2025-05-07 15:15 | Outpatient (BNV) | payer MEDICAID, SELFPAY | END 2025-05-08 11:31 | PROVIDERS: Admitting Provider Student in an Organized Health Care Education/Training Program; Emergency Provider Emergency Medicine; Visit Provider Radiology Diagnostic Radiology | DX: J98.09 Other diseases of bronchus, not elsewhere classified (principal) | CPT/HCPCS: 71250 ==

== ENCOUNTER → 2025-05-07 15:15 | Outpatient (BNV) | payer MEDICAID, SELFPAY | PROVIDERS: Admitting Provider Student in an Organized Health Care Education/Training Program; Emergency Provider Emergency Medicine; Visit Provider Internal Medicine | DX: N17.9 Acute kidney failure, unspecified (principal); N18.9 Chronic kidney disease, unspecified; J18.9 Pneumonia, unspecified organism | CPT/HCPCS: 99223; 99232; 99499 ==

== ENCOUNTER → 2025-05-07 15:15 | Outpatient (BNV) | payer MEDICAID, SELFPAY | PROVIDERS: Admitting Provider Student in an Organized Health Care Education/Training Program; Emergency Provider Emergency Medicine; Visit Provider Nurse Practitioner Family | DX: N17.9 Acute kidney failure, unspecified (principal); N18.9 Chronic kidney disease, unspecified | CPT/HCPCS: 99221 ==

== ENCOUNTER → 2025-05-07 15:15 | Outpatient (BNV) | payer MEDICAID, SELFPAY | PROVIDERS: Admitting Provider Student in an Organized Health Care Education/Training Program; Emergency Provider Emergency Medicine; Visit Provider Internal Medicine Pulmonary Disease | DX: J96.01 Acute respiratory failure with hypoxia (principal) | CPT/HCPCS: 99223 ==

== ENCOUNTER 2025-07-30 10:40 | Emergency (ER) | payer MEDICAID, SELFPAY ==
[2025-07-30 11:10] VITALS: BP 208/106; PULSE 86; RESP 16; TEMP 36.7; O2SAT 98; BMI 38.4
--- NOTE | 2025-07-30 11:27 | ED.GENADULT ---
HPI - General Adult General Chief complaint: Wound/Laceration Stated complaint: painful ulcer bleeding Time Seen by Provider: 07/30/25 12:33 Source: patient and project developer Mode of arrival: ambulatory Limitations: language barrier History of Present Illness ED Provider: HPI narrative: 60-year-old male has chronic diarrhea, history of Crohn's, presenting with perianal irritation, states has liquid stools 10-12 times a day for the past 3 months, seeing his GI provider early next week. No fevers or chills no abdominal pain. Has been using baby wipes Related Data Home Medications ?Medication ?Instructions ?Recorded ?Confirmed metoprolol tartrate 50 mg tablet 50 mg PO BID 03/03/21 05/07/25 rosuvastatin 40 mg tablet 40 mg PO BEDTIME 03/03/21 05/07/25 zolpidem 10 mg tablet 1 tab PO BEDTIME 03/03/21 05/07/25 ferrous gluconate 324 mg (38 mg 1 tab PO DAILY 06/30/21 05/07/25 iron) tablet lidocaine 5 % topical patch 1 patch topical DAILY 08/20/21 05/07/25 cyanocobalamin (vitamin B-12) 1 tab PO DAILY 07/07/22 05/07/25 1,000 mcg tablet gabapentin 300 mg capsule 300 mg PO TID 02/17/23 05/07/25 methadone 10 mg/mL oral concentrate 50 mg PO DAILY 02/17/23 05/08/25 lisinopril 20 mg tablet 20 mg PO DAILY 11/01/24 05/07/25 pantoprazole 40 mg tablet,delayed 40 mg PO DAILY@0630 11/01/24 05/07/25 release acetaminophen 650 mg 650 mg PO Q8H PRN mild pain 05/07/25 05/07/25 tablet,extended release felodipine 5 mg tablet,extended 5 mg PO BEDTIME 05/07/25 05/07/25 release 24 hr mesalamine 400 mg capsule (with 800 mg PO TID 05/07/25 05/07/25 delayed release tablets inside) Previous Rx's ?Medication ?Instructions ?Recorded loperamide 2 mg tablet (Imodium 2 mg PO Q8H PRN loose stool #30 10/27/23 A-D) tabs methylprednisolone 4 mg tablets in See Rx Instructions .Route 05/09/25 a dose pack (Medrol (Donavan)) .COMPLEX #21 ea pramoxine 1 % topical foam 1 appl TN TID 7 days #15 grams 07/30/25 (Proctofoam) Allergies Allergy/AdvReac Type Severity Reaction Status Date / Time Iodinated Contrast Media (IV Allergy Intermediate HIVES Verified 07/30/25 11:13 CONTRAST) prednisone (PREDNISONE) Allergy Mild RASH Verified 07/30/25 11:13 Review of Systems Constitutional: Constitutional: Reports as per [facility] Past Medical History Medical History Clostridium difficile carrier Opioid use disorder Constipation Crohn's disease of both small and large intestine CKD (chronic kidney disease) Ulcerative colitis HLD (hyperlipidemia) Colitis HTN (hypertension) Surgical History History of esophagogastroduodenoscopy (EGD) Hx of colonoscopy H/O total colectomy H/O cervical spine surgery History of colostomy reversal Family History Family History Mother Stroke Diabetes mellitus HTN (hypertension), benign Hyperlipidemia Brother Diabetes mellitus Social History Social History Household Members: None Housing: Apartment Housing Other:: Rents a room Do you presently have visiting nurse or other home services: No Alcohol intake: current Alcohol intake frequency: does not drink Comment: Chirag Patient Tobacco Use Status: Never used Tobacco e-Cigarette/Vaping Use: Never Used Second Hand Smoke Exposure: No Substance Use Type: Heroin Advance Directives: Yes Advance Directives on File: Yes Advance Directives Date on File: 03/08/21 service: No Current occupational status: unemployed Physical Exam ED Vital Signs: Vital Signs - 24 hr 07/30/25 11:10 07/30/25 12:33 07/30/25 14:37 Temperature 98.0 F 98.1 F 98.1 F Pulse Rate 86 78 78 Respiratory Rate 16 16 16 Blood Pressure 208/106 H 148/92 H 148/92 H Pulse Oximetry 98 97 97 Oxygen Delivery Method Room Air Room Air Room Air BMI result Body Mass Index 38.4 Const Other: Gen: ?Overall well-appearing patient HEENT: PERRLA, EOMI, MMM, Neck: Supple, no LAD CV: RRR, no obvious murmurs appreciated Resp: ?No wheezing rales rhonchi no stridor moving air well Abd: ?Bowel sounds are present, no tenderness no rebound no rigidity Rectal: Perianal irritation and Rivas's, moist appearing skin, no spreading rash, restless exam is unremarkable MSK: FROM, strength 5/5 all extremities Skin: Warm, dry, intact, Neuro: ?Alert and oriented x3, moving upper and lower extremities symmetrically, no obvious facial asymmetry noted Course Course Course Narrative: RME: 60-year-old male presents to ED for painful buttock abscess that is draining and bleeding with yellow pus discharge. Patient states no fever or chills. Patient to be evaluated [facility] Medical Decision Making Medical Decision Making [facility] Narrative: 1:21 PM 07/30/2025 (Dr. Omar Lo): Physical examination is consistent with frequent rubbing, moisture buildup, seeing his GI provider on Monday next week to evaluate why he is having chronic diarrhea, has been seen for the same in the past. Differential Diagnosis Differential Diagnoses: The differential diagnosis associated with the presentation includes (Abscess, cellulitis, herpes, hemorrhoids, colitis flare) Lab Data [facility] Lab Attestation statement: I reviewed the patient's lab results. 07/30/25 12:32 07/30/25 12:32 Labs: Lab Results 07/30/25 Range/Units 12:32 WBC 7.4 (4.8-10.8) X10*3/uL RBC 3.37 L (4.60-5.80) X10*6/uL Hgb 10.2 L (14.0-18.0) g/dl Hct 30.9 L (42.0-52.0) % MCV 91.7 (80.0-98.0) fL MCH 30.3 (27.0-33.0) pg MCHC 33.0 (31.0-36.0) g/dl RDW 14.6 (11.0-16.0) % Plt Count 229 D (160-400) X10*3/uL MPV 9.4 (9.4-12.4) fL Immature Gran % (Auto) 0.5 H (0.0-0.4) % Neut % (Auto) 65.9 (45-73) % Lymph % (Auto) 22.0 (20-40) % [place] % (Auto) 7.9 (2-11) % Eos % (Auto) 3.3 (0-4) % Baso % (Auto) 0.4 (0-2) % Lymph # (Auto) 1.6 (1.2-4.9) X10*3/uL [place] # (Auto) 0.6 (0.1-1.2) X10*3/uL Eos # (Auto) 0.2 (0.0-0.4) X10*3/uL Baso # (Auto) 0.0 (0.0-0.2) X10*3/uL Abs Immat Gran (auto) 0.04 H (0.00-0.03) X10*3/uL Absolute Neuts (auto) 4.9 (2.0-8.3) x10*3/uL Absolute Nucleated RBC 0.000 (0.0-0.012) X10*3/uL Nucleated RBC % (auto) 0.0 (0.0-0.2) /100WBC ESR 64 H (0-15) MM/HR Sodium 142 (135-145) mmol/L Potassium 4.7 (3.3-5.1) mmol/L Chloride 106 (96-108) mmol/L Carbon Dioxide 28 (22-29) mmol/L Anion Gap 13 (12-20) BUN 15 (9-16) mg/dL Creatinine 1.82 H (0.5-1.4) mg/dL Estim Creat Clear Calc 54.6 Estimated GFR 38 Random Glucose 93 (60-115) mg/dL Calcium 8.7 (8.4-10.2) mg/dL Total Bilirubin 0.1 (0.0-1.0) mg/dL AST 26 (5-37) U/L ALT 15 (0-40) U/L Alkaline Phosphatase 63 (39-117) U/L C-Reactive Protein 0.78 H (< or = 0.50) mg/dL Total Protein 7.7 (6.5-8.0) g/dL Albumin 3.7 (3.5-5.0) g/dL Prescription Management I considered prescription management with: Pain Medication and Antibiotic Discharge Plan Discharge Clinical Impression: Anal irritation Patient Disposition: Home, Self-Care Additional Instructions: Use Vaseline after each loose bowel movemen, clean your anal area with water, pat fully dry gently and apply Vaseline, use Proctofoam 3 times a day ( instead of vaseline ) for the next week to decrease irritation See your home health caregiver The rest of the workup has been reassuring Prescriptions: New pramoxine [Proctofoam] 1 % foam 1 appl TN TID 7 Days Qty: 15 0RF No Action metoprolol tartrate 50 mg tablet 50 mg PO BID zolpidem 10 mg tablet 1 tab PO BEDTIME rosuvastatin 40 mg tablet 40 mg PO BEDTIME ferrous gluconate 324 mg (38 mg iron) tablet 1 tab PO DAILY cyanocobalamin (vitamin B-12) 1,000 mcg tablet 1 tab PO DAILY lidocaine 5 % adhesive patch,medicated 1 patch topical DAILY gabapentin 300 mg capsule 300 mg PO TID methadone 10 mg/mL Concentrate 50 mg PO DAILY loperamide [Imodium A-D] 2 mg tablet 2 mg PO Q8H PRN (Reason: loose stool) Qty: 30 0RF felodipine 5 mg tablet extended release 24 hr 5 mg PO BEDTIME acetaminophen 650 mg tablet extended release 650 mg PO Q8H PRN (Reason: mild pain) mesalamine 400 mg capsule (with del rel tablets) 800 mg PO TID methylprednisolone [Medrol (Donavan)] 4 mg tablets,dose pack See Rx Instructions .ROUTE .COMPLEX Qty: 21 0RF Rx Instructions: As directed pantoprazole 40 mg tablet,delayed release (DR/EC) 40 mg PO DAILY@0630 lisinopril 20 mg tablet 20 mg PO DAILY Interventions: ED Discharge Assessment Last Done: 07/30/25 14:37 Discharge Date/Time: 07/30/25 14:38 Print Language: Sami
[2025-07-30 12:33] VITALS: BP 148/92; PULSE 78; RESP 16; TEMP 36.7; O2SAT 97
[2025-07-30 12:40] LABS: MANUAL DIFF FLAG NO
[2025-07-30 12:43] LABS: Hematocrit 30.9 % (42.0-52.0); Hemoglobin 10.2 g/dl (14.0-18.0); Imm Gran Abs Auto 0.04 X10*3/uL (0.00-0.03); Imm Gran Pct Auto 0.5 % (0.0-0.4); Lymphocytes Absolute Auto 1.6 X10*3/uL (1.2-4.9); Mean Corpuscular HGB Conc 33.0 g/dl (31.0-36.0); Mean Corpuscular Hemoglobin 30.3 pg (27.0-33.0); Mean Corpuscular Volume 91.7 fL (80.0-98.0); NRBC Abs Auto 0.000 X10*3/uL (0.0-0.012); NRBC Pct Auto 0.0 /100WBC (0.0-0.2); Platelet Count 229 X10*3/uL (160-400); Red Blood Count 3.37 X10*6/uL (4.60-5.80); White Blood Count 7.4 X10*3/uL (4.8-10.8)
[2025-07-30 12:56] LABS: Alanine Aminotransferase 15 U/L (0-40); Albumin Level 3.7 g/dL (3.5-5.0); Alkaline Phosphatase 63 U/L (39-117); Anion Gap 13 (12-20); Aspartate Amino Transferase 26 U/L (5-37); Blood Urea Nitrogen 15 mg/dL (9-16); Calcium 8.7 mg/dL (8.4-10.2); Carbon Dioxide 28 mmol/L (22-29); Chloride 106 mmol/L (96-108); Creatinine Clr Calc Pharmacy 54.6; Estimated Glomerular Filt Rate 38; Potassium 4.7 mmol/L (3.3-5.1); Sodium 142 mmol/L (135-145); Total Protein 7.7 g/dL (6.5-8.0)
[2025-07-30 14:37] VITALS: BP 148/92; PULSE 78; RESP 16; TEMP 36.7; O2SAT 97
--- OUTSIDE RECORDS SUMMARY | 2025-07-30 15:27 | XMS_ITS | Encounter Summary ---
Author Organization [employer] Address [address] [place] [id number] Care Team Providers Care Copy Operator Name Role Phone Dariela Zapata MD Primary Care Provide r Reason for Visit * Reason Comments Med Refill Encounter Details Date Type Department Care Team ([facility] st Contact Info) Description 01/05/2024 Refill [facility] [address] [place] [address] Dariela Zapata MD [address] [place] [address] Low back pain at multiple sites Social History Tobacco Use Types Packs/Day Years Used Date Smoking Tobacco: Never Assessed Housing Stability Answer Date Recorded What is your housing situation today? I do not have housing (Staying with others, in a hotel, in a senior living, living outside on the street, on a beach, in a car, or in a park 08/20/[address] you li ve. Do you have problems with any of the following? None of the above 08/20/2023 Food Insecurity Answer Date Recorded Within the past 12 months, y ou worried that your food would run out before you got money to buy more: Often true 08/31/2023 Within the past 12 months,th e food you bought just didn't last and you didn't have enough money to get more: Often true Transportation Answer Date Recorded In the past 12 months, has l ack of transportation kept you from medical appts, meetings, work or from getting things needed for daily living? Yes, it has kept me from medical appointments or getting medications. 08/20/2023 Utilities Answer Date Recorded In the past 12 months, has t he electric, gas, oil or water company threatened to shut off services in your home? No 08/31/2023 Sex and Gender Information Value Date Recorded Sex Assigned at Male 09/12/2022 10:23 AM EDT Legal Sex Male 10:23 AM EDT Gender Identity Male 09/12/2022 10:23 AM EDT Sexual Orientation Straight 09/12/2022 10 :23 AM EDT documented as of this encounter Plan of Treatment Not on file documented as of this encounter Visit Diagnoses Diagnosis Low back pain at multiple sites documented in this encounter Care Teams Copy Operator Relationship Specialty Start Date End Date Dariela Zapata MD [address] [place] [id number] PCP - General Family Medicine 10/14/19 documented as of this encounter
--- OUTSIDE RECORDS SUMMARY | 2025-07-30 15:27 | XMS_ITS | Encounter Summary ---
Author Organization [employer] Address [address] [place] [address] [address] [place] [address] Care Team Providers Care Pocket Creaser Name Role Phone Dariela Zapata MD Primary Care Provide r Reason for Visit * Reason Comments Med Refill Encounter Details Date Type Department Care Team ([facility] st Contact Info) Description 07/06/2023 Refill [facility] [address] [place] [address] Dariela Zapata MD [address] [place] [address] Insomnia, unspecified type Social History Tobacco Use Types Packs/Day Years Used Date Smoking Tobacco: Never Assessed Sex and Gender Information Value Date Recorded Sex Assigned at Male 09/12/2022 10:23 AM EDT Legal Sex Male 10:23 AM EDT Gender Identity Male 09/12/2022 10:23 AM EDT Sexual Orientation Straight 09/12/2022 10 :23 AM EDT documented as of this encounter Plan of Treatment Not on file documented as of this encounter Visit Diagnoses Diagnosis Insomnia, unspecified type documented in this encounter Care Teams Pocket Creaser Relationship Specialty Start Date End Date Dariela Zapata MD [address] [place] [address] PCP - General Family Medicine 10/14/19 documented as of this encounter
--- OUTSIDE RECORDS SUMMARY | 2025-07-30 15:27 | XMS_ITS | Encounter Summary ---
Author Organization [facility] Address [address] [facility] 7t [place] [address] Care Team Providers Care Cork Grinder Name Role Phone Dariela Zapata MD Primary Care Provide r Reason for Visit * Reason Onset Date Comments mail appt slip 03/11/2025 Encounter Details Date Type Department Care Team ([facility] st Contact Info) Description 03/11/2025 Telephone [facility] [address] [place] [address] Leroy Joel DDS [address] [place] [address] mail appt slip Social History Tobacco Use [...] documented in this encounter Plan of Treatment Not on file documented as of this encounter Visit Diagnoses Not on filedocumented in this encounter Additional Health Concerns Assessment Noted Time PHQ-9 Depression Total Score: 0 03/25/20 24 2:34 PM EDT documented as of this encounter Care Teams Cork Grinder Relationship Specialty Start Date End Date Dariela Zapata MD [address] [place] [address] PCP - General Family Medicine 10/14/19 documented as of this encounter
--- OUTSIDE RECORDS SUMMARY | 2025-07-30 15:27 | XMS_ITS | Encounter Summary ---
Author Organization [employer] Address [address] [place] [address] 7t [place] [address] Care Team Providers Care Teradata Solution Architect Name Role Phone Dariela Zapata MD Primary Care Provide r Reason for Visit * Reason Comments Med Refill Encounter Details Date Type Department Care Team ([facility] st Contact Info) Description 06/08/2023 Refill [facility] MEDICINE [address] [place] [address] Dariela Zapata MD [address] [place] [address] Insomnia, unspecified type Social History Tobacco Use [...] type documented in this encounter Care Teams Teradata Solution Architect Relationship Specialty Start Date End Date Dariela Zapata MD [address] [place], [place] [phone] PCP - General Family Medicine 10/14/19 documented as of this encounter
--- OUTSIDE RECORDS SUMMARY | 2025-07-30 15:27 | XMS_ITS | Encounter Summary ---
Author Organization [employer] Address [address] [facility] [address]t h Floor [place] [id number] Care Team Providers Care Tipple Repairer Name Role Phone Dariela Zapata MD Primary Care Provide r Reason for Visit * Reason Comments Med Refill Encounter Details Date Type Department Care Team ([facility] st Contact Info) Description 06/16/2024 Refill [facility] MED[facility]INE [address] [place] [address] Dariela Zapata MD [address] [place] [address] Cervicalgia Social History Tobacco Use Types Packs/Day Years Used Date Smoking Tobacco: Never Passive Smoke Exposure: Never Smokeless Tobacco: Never Depression Answer Date Recorded Patient Health Questionnaire-9 [...] off services in your home? No 08/31/2023 Depression Answer Date Recorded Patient Health Questionnaire-2 Score 0 03/25/2024 Sex and Gender Information Value Date Recorded Sex Assigned at Male 09/12/2022 10:23 AM EDT Legal Sex Male 10:23 AM EDT Gender Identity Male 09/12/2022 10:23 AM EDT Sexual Orientation Straight 09/12/2022 10 :23 AM EDT documented as of this encounter Plan of Treatment Not on file documented as of this encounter Visit Diagnoses Diagnosis Cervicalgia documented in this encounter Additional Health Concerns Assessment Noted Time PHQ-9 Depression Total Score: 0 03/25/20 24 2:34 PM EDT documented as of this encounter Care Teams Tipple Repairer Relationship Specialty Start Date End Date Dariela Zapata MD [address] [place] [id number] PCP - General Family Medicine 10/14/19 documented as of this encounter
--- OUTSIDE RECORDS SUMMARY | 2025-07-30 15:27 | XMS_ITS | Encounter Summary ---
Author Organization [employer] Address [address] [facility] 7t [place] [address] Care Team Providers Care Sorter Pricer Name Role Phone Dariela Zapata MD Primary Care Provide r Encounter Details Date Type Department Care Team (Late st Contact Info) Description 01/14/2025 Orders Only [facility] MEDICINE [address] [place] [address] Dariela Zapata MD [address] [place] [address] Social History Tobacco Use Types Packs/Day Years [...] documented as of this encounter Care Teams Sorter Pricer Relationship Specialty Start Date End Date Dariela Zapata MD [address] [place] [id number] PCP - General Family Medicine 10/14/19 documented as of this encounter
--- OUTSIDE RECORDS SUMMARY | 2025-07-30 15:27 | XMS_ITS | Encounter Summary ---
Author Organization [employer] Address [address] [facility] 7t [place] [address] Care Team Providers Care Grails Web Application Developer Name Role Phone Dariela Zapata MD Primary Care Provide r Reason for Visit * Reason Comments Med Refill Encounter Details Date Type Department Care Team ([facility] st Contact Info) Description 11/10/2024 Refill [facility] MEDICINE [address] [place] [address] Dariela Zapata MD [address] [place] [address] Insomnia, unspecified type Social History Tobacco Use [...] Insomnia, unspecified type documented in this encounter Additional Health Concerns Assessment Noted Time PHQ-9 Depression Total Score: 0 03/25/20 24 2:34 PM EDT documented as of this encounter Care Teams Grails Web Application Developer Relationship Specialty Start Date End Date Dariela Zapata MD [address] [place] [phone] PCP - General Family Medicine 10/14/19 documented as of this encounter
--- OUTSIDE RECORDS SUMMARY | 2025-07-30 15:27 | XMS_ITS | Encounter Summary ---
Author Organization [employer] Address [address] [facility] 7t h Floor [place] [id number] Care Team Providers Care Keg Header Name Role Phone Dariela Zapata MD Primary Care Provide r Reason for Visit * Reason Comments Med Refill Encounter Details Date Type Department Care Team ([facility] st Contact Info) Description 01/17/2024 Refill [facility] MEDICINE [address] [place] [address] Dariela Zapata MD [address] [place] [address] Low back pain at multiple sites; Pain; Crohn's disease with complication, unspecified gastrointestinal tract location (CMS/HCC); Insomnia, unspecified type Social History Tobacco Use Types Packs/Day Years Used Date Smoking Tobacco: Never Assessed Housing Stability Answer Date Recorded What is your housing situation today? I do not have housing (Staying with others, in a hotel, in a penitentiary, living outside on the street, on a [...] Diagnosis Low back pain at multiple sites Pain Generalized pain Crohn's disease with complication, unspecified gastrointestinal tract location (CMS/HCC) Insomnia, unspecified type documented in this encounter Care Teams Keg Header Relationship Specialty Start Date End Date Dariela Zapata MD [address] [place] [address] PCP - General Family Medicine 10/14/19 documented as of this encounter
--- OUTSIDE RECORDS SUMMARY | 2025-07-30 15:27 | XMS_ITS | Encounter Summary ---
Author Organization [employer] Address [address] [facility] 7t h Floor [place] [phone] Care Team Providers Care Trust Administrator Name Role Phone Dariela Zapata MD Primary Care Provide r Reason for Visit * Reason Comments Med Refill Encounter Details Date Type Department Care Team ([facility] st Contact Info) Description 01/08/2024 Refill [facility] MEDICINE [address] [place] [address] Dariela Zapata MD [address] [place] [address] Low back pain at multiple sites Social [...] sites documented in this encounter Care Teams Trust Administrator Relationship Specialty Start Date End Date Dariela Zapata MD [address] [place] [phone] PCP - General Family Medicine 10/14/19 documented as of this encounter
--- OUTSIDE RECORDS SUMMARY | 2025-07-30 15:27 | XMS_ITS | Encounter Summary ---
Author Organization [employer] Address 75 [facility] 7t [place] [address] Care Team Providers Care Stem Roller Or Crusher Operator Name Role Phone Dariela Zapata MD Primary Care Provide r Reason for Referral * Imaging (Routine) - Closed Specialty Diagnoses / Procedures Referred By Edwin t Referred To Contact Radiology Diagnoses Abnormal CXR Procedures CT Chest w/o Contrast Rayne Fierro MD [address] [place] [address] Phone: tel: fax: [address] Phone: tel: fax: Referral ID Status Reason Start Date Expiration Date Visits Re quested Visits Authorized [id number] Closed 10/18/2024 10/18/2025 1 1 Encounter Details Date Type Department Care Team (Late st Contact Info) Description 10/18/2024 Orders Only [facility] MEDICINE [address] [place], [place] [phone] Rayne Fierro MD [address] [place], [place] [phone] Abnormal CXR (Primary Dx) Social History Tobacco Use Types Packs/Day Years [...] as of this encounter Plan of Treatment Scheduled Orders Name Type Priority Associated Diagnoses Orde r Schedule CT Chest w/o Contrast Imaging Routine Abnormal CXR Expected: 10/18/2024, Expires: 10/18/2025 documented as of this encounter Visit Diagnoses Diagnosis Abnormal CXR- Primary Nonspecific (abnormal) findings on radiological and other examination of lung field documented in this encounter Additional Health Concerns Assessment Noted Time PHQ-9 Depression Total Score: 0 03/25/20 24 2:34 PM EDT documented as of this encounter Care Teams Stem Roller Or Crusher Operator Relationship Specialty Start Date End Date Dariela Zapata MD [address] [place] [address] PCP - General Family Medicine 10/14/19 documented as of this encounter
--- OUTSIDE RECORDS SUMMARY | 2025-07-30 15:27 | XMS_ITS | Encounter Summary ---
Author Organization [employer] Address [address] [facility] 7t [place] [address] Care Team Providers Care Broomcorn Thresher Name Role Phone Dariela Zapata MD Primary Care Provide r Reason for Visit * Reason Onset Date Comments Med Refill 11/21/2024 Encounter Details Date Type Department Care Team ([facility] st Contact Info) Description 11/21/2024 Telephone [facility] MEDICINE [address] [place] [address] Dariela Zapata MD [address] [place] [address] Med Refill Social History Tobacco Use Types Packs/Day Years [...] encounter Miscellaneous Notes * Telephone Encounter - Celena Cannon LPN - 11/21/2024 8:37 AM EST Gabapentin and tylenol sent to [facility] on 11/20/24. Ambien pended to PCP. * Telephone Encounter - Gretchen Phillips - 11/21/2024 8:13 AM EST TC from pt requesting medication refill. Medications needing refill :gabapentin (Neurontin) 300 MG capsule zolpidem (Ambien) 10 MG tablet acetaminophen (Tylenol 8 Hour) 650 MG ER tablet To be sent to: [facility] documented in this encounter Plan of Treatment Not on file documented as of this encounter Visit Diagnoses Not on filedocumented in this encounter Additional Health Concerns Assessment Noted Time PHQ-9 Depression Total Score: 0 03/25/20 24 2:34 PM EDT documented as of this encounter Care Teams Broomcorn Thresher Relationship Specialty Start Date End Date Dariela Zapata MD [address] [place] [phone] PCP - General Family Medicine 10/14/19 documented as of this encounter
--- OUTSIDE RECORDS SUMMARY | 2025-07-30 15:27 | XMS_ITS | Clinical Summary ---
Author Organization [employer] Address [address] [facility] [address] [place] [address] Care Team Providers Care Index Editor Name Role Phone Dariela Zapata MD Primary Care Provide r Allergies Active Allergy Reactions Criticality Noted Date Comments Iodinated Contrast Media Hives High 05/02/2023 Prednisolone 09/27/2013 Medications * This document contains information received from the source organization and may not represent a complete record from that organization. Blood Pressure Monitoring (Blood Pressure Cuff) miscIndications:Ess ential hypertension 1 each Once daily. 1 each 024 Active doxycycline (Vibra-Tabs) 100 MG tablet Take 100 mg by mouth 2 times daily. 024 Active lidocaine (Xylocaine) 2 % solution PLEASE SEE ATTACHED FOR DETAILED DIRECTIONS 024 Active mesalamine (Delzicol) [address] capsuleIndications: Crohn's disease with complication, unspecified gastrointestinal tract location (CMS/HCC) TAKE 2 CAPSULES BY MOUTH THREE TIMES DAILY IN THE MORNING, AT NOON AND AT BEDTIME ON ON AN EMPTY STOMACH 180 capsule 025 Active chlorhexidine (Peridex) 0.12 % solutionIndications :Dental attrition, excessive, extending into pulp,Pain, dental,Dental abrasion extending into pulp Swish 15 mL morning and night for 1 minute. Spit, do not swallow. Do not eat or drink for 30 minutes following use. 473 mL 025 Active ferrous gluconate (Fergon) 324 (38 Fe) MG tablet TAKE 1 TABLET BY MOUTH EVERY MORNING 90 tablet 1 025 Active lisinopril 20 MG tabletIndications:E ssential hypertension TAKE 1 TABLET BY MOUTH EVERY MORNING 90 tablet 1 025 Active pantoprazole (ProtoNix) 40 MG EC tablet TAKE 1 TABLET BY MOUTH EVERY MORNING 90 tablet 1 Active chlorhexidine (Peridex) 0.12 % solution Swish 15 mL morning and night for 1 minute. Spit, do not swallow. Do not eat or drink for 30 minutes following use. 473 mL 025 Active acetaminophen (Tylenol 8 Hour) 650 MG ER tabletIndications:C ervicalgia TAKE 1 TABLET BY MOUTH EVERY 8 HOURS NEEDED FOR MILD PAIN 30 tablet Active cyanocobalamin (Vitamin B-12) 1000 MCG tablet TAKE 1 TABLET BY MOUTH EVERY MORNING 90 tablet 1 Active felodipine ER (Plendil) 5 MG 24 hr tabletIndications:H ypertension, unspecified type TAKE 1 TABLET BY MOUTH EVERY EVENING 90 tablet 1 025 Active rosuvastatin (Crestor) 40 MG tabletIndications:H ypertension, unspecified type TAKE 1 TABLET BY MOUTH EVERY EVENING 90 tablet 1 025 Active metoprolol tartrate (Lopressor) 50 MG tabletIndications:H ypertension, unspecified type TAKE 1 TABLET BY MOUTH TWICE DAILY IN THE MORNING AND IN THE EVENING 180 tablet 1 025 Active zolpidem (Ambien) 10 MG tabletIndications:I nsomnia, unspecified type Take 1 tablet (10 mg) by mouth at bedtime. 30 tablet 1 Active gabapentin (Neurontin) 300 MG capsuleIndications: Pain Take 1 capsule (300 mg) by mouth 2 times daily. 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 85 g 2 025 Active polycarbophil (FiberCon) 625 MG tabletIndications:C rohn's disease of both small and large intestine with fistula (CMS/HCC) Take 1 tablet (625 mg) by mouth Once per day. 30 tablet 025 2025 Active gabapentin (Neurontin) 300 MG capsuleIndications: Pain TAKE 1 CAPSULE BY MOUTH EVERY 6 HOURS 90 capsule 025 2024 Discontinued zolpidem (Ambien) 10 MG tabletIndications:I nsomnia, unspecified type TAKE 1 TABLET BY MOUTH AT BEDTIME 30 tablet 025 2024 Discontinued(R eorder (will not trigger notification to Pharmacy)) lidocaine (Lidoderm) 5 % patchIndications:Lo w back pain at multiple sites APPLY 1 PATCH TOPICALLY TO SKIN, LEAVE ON FOR 12 HOURS AND OFF FOR 12 HOURS DIRECTED 30 patch 025 2024 Discontinued(R eorder (will not trigger notification to Pharmacy)) amoxicillin (Amoxil) 500 MG capsule Take 1 capsule (500 mg) by mouth every 8 (eight) hours for 7 days. 21 capsule 025 2024 ibuprofen 800 MG tablet Take 1 tablet (800 mg) by mouth every 8 (eight) hours if needed for mild pain for up to 10 days. 15 tablet 025 2024 acetaminophen (Tylenol 8 Hour) 650 MG ER tablet Take 1 tablet (650 mg) by mouth every 8 (eight) hours if needed for moderate pain for up to 10 days. Do not crush, chew, or split. 15 tablet 025 2024 Active Problems Problem Noted Date Diagnosed Date Perianal fistula due to Crohn's disease 07/15/20 25 Assessment & Plan (07/15/2025 10:02 AM EDT): I will refer the patient stat to surgery Fecal incontinence 07/15/2025 Assessment & Plan (07/15/2025 10:01 AM EDT): I will prescribe for patient portable toilet Low back pain at multiple sites 07/15/2025 Assessment & Plan (07/15/2025 10:02 AM EDT): I explained the patient had to reduce the dose of gabapentin in light of his renal function he understood and agreed He may take acetaminophen as needed and use lidocaine patches Stage 3b chronic kidney disease 07/15/2025 Assessment & Plan (07/15/2025 10:06 AM EDT): I advised patient to maintain hydration to drink plenty of water, I also advised not to take medications that are nephrotoxic's like NSAIDs, he tells me he has an upcoming appointment with nephrology advised not to miss his appointment Dental attrition, excessive, extending into pulp 02/19/2025 Pain, dental 02/19/2025 Dental abrasion extending into pulp 02/19/2025 Small bowel obstruction 10/16/2024 Pouchitis 10/16/2024 Crohn's disease of both small and large intestin e 10/16/2024 Inflammation of ileoanal pouch 10/16/2024 Opioid use disorder 10/16/2024 Clostridium difficile carrier 10/16/2024 Encounter for preventive health examination 03/13 Assessment & Plan (03/25/2024 4:56 PM EDT): Se HPI Cervicalgia 03/25/2024 Assessment & Plan (03/25/2024 4:57 PM EDT): Apply heat on affected area Acetaminophen PRN I explain I can not go up on his gabapentin until I see his blood work results Inflammatory bowel diseases (IBD) 04/21/2023 Blurring of visual image 04/20/2023 Colitis 04/20/2023 Constipation 04/20/2023 Hordeolum externum of upper eyelid 04/20/2023 Chronic kidney disease 04/20/2023 Assessment & Plan (03/25/2024 4:58 PM EDT): BMP ordered after results I will possibly refer back patient to nephrology Hypertensive renal disease 03/19/2021 Crohn's disease 06/23/2017 Assessment & Plan (07/15/2025 10:01 AM EDT): I will refer him back to gastroenterology I will prescribe 5 fiber tablets to help with diarrhea and fecal incontinence Assessment & Plan (03/25/2024 4:56 PM EDT): Continue to be follow closely by GI Essential hypertension 06/23/2017 Assessment & Plan (07/15/2025 10:01 AM EDT): Advised low-sodium diet weight reduction and take his medications every day without missing any dose Assessment & Plan (03/25/2024 4:56 PM EDT): Blood pressure is very high today, he tells me he did took his blood pressure medication in the morning, I advise low Na diet and weight reduction, I will add lisinopril 20mg, I advise to pick it up right away and start medciaton, I also prescribed BP cuff and advise to monitor his BP at home and come back for nurse visit for BP check, plan is if BP not at goal to add hydrochlorothiazide Opioid dependence 06/23/2017 Hypertensive disorder 06/05/2013 Encounters Date Type Department Care Team Description 07/30/2025 Orders Only GENERIC EXTERNAL DATA DEPARTMENT Provider, Generic External Data 07/15/2025 9:30 AM EDT Office Visit [facility] [address] [place] [phone] Dariela Zapata MD Essential hypertension (Primary Dx); Crohn's disease of both small and large intestine with fistula (CMS/HCC); Perianal fistula due to Crohn's disease (CMS/HCC); Incontinence of feces, unspecified fecal incontinence type; Insomnia, unspecified type; Pain; Low back pain at multiple sites; Encounter for immunization; Stage 3b chronic kidney disease (CMS/HCC) 07/15/2025 Telephone [facility] [address] [place] [address] Dariela Zapata MD Durable Medical Equipment (DME Order: [employer]) 07/15/2025 Travel 07/11/2025 Telephone [facility] [address], [place] [phone] Dariela Zapata MD Chart Prep 07/07/2025 Patient Outreach [facility] [address], [place] [phone] Dariela Zapata MD Care Coordination (CH[facility] outreach SDOH pest control - LVM ) 07/07/2025 Patient Outreach [facility] [address] [place] [phone] Dariela Zapata MD Pre-visit Planning ((SDOH screening positive tobacco screening negative) ) 07/04/2025 Telephone [facility] [address] [place] [phone] Dariela Zapata MD Durable Medical Equipment 06/24/2025 8:00 AM EDT Office Visit [facility] [address] [place] [address] Aliji, Nunez Pain, dental (Primary Dx); Dental caries; Periapical abscess without sinus 06/23/2025 11:00 AM EDT Office Visit [facility] [address] [place] [address] Aliji, Nunez Pain, dental (Primary Dx) 06/20/2025 Refill [facility] [address] [place] [address] Dariela Zapata MD Low back pain at multiple sites 06/19/2025 Refill [facility] [address] [place] [address] Dariela Zapata MD Insomnia, unspecified type 06/02/2025 Refill [facility] [address] [place] [address] Dariela Zapata MD Hypertension, unspecified type 05/22/2025 Refill [facility] [address] [place] [address] Dariela Zapata MD Cervicalgia 05/19/2025 Refill [facility] [address] [place] [address] Dariela Zapata MD Pain 05/15/2025 Refill [facility] [address] [place] [address] Rayne Fierro MD Insomnia, unspecified type 05/07/2025 Orders Only [facility] External Provider, [facility] from Last 3 Months Immunizations Immunization Administration Dates Next Due Hep A, Adult 01/29/2020 Hep B, adult 09/23/2021, 0,12/04/2018,2017 Influenza Injectable Quadriv alant Preservative Free IIV4 MDCK 10/20/2020 Influenza injectable quadriv alent IIV4 with preservative 09/01/2017 Influenza injectable quadriv alent preservative free 08/25/2023,08/09/2021,11/19/2019 Influenza, IIV3, injectable 09/17/2013 Influenza, injectable, quadr ivalent, preservative free, pediatric 09/17/2013 Moderna Covid-19 Vaccine 6+ Bivalent 11/08/2022 Pneumococcal Conjugate PCV 20 07/15/2025 Tdap 09/26/2017,09/17/2013 Zoster, Recombinant 10/20/2020,08/12/2020 Social History Tobacco Use Types Packs/Day Years Used Date Smoking Tobacco: Never Passive Smoke Exposure: Never Smokeless Tobacco: Never Tobacco Cessation:Counseling Given: Not Answered Alcohol Use Standard Drinks/Week Comments Not Currently 0 (1 standard drink = 0.6 oz pur e alcohol) Depression Answer Date Recorded Patient Health Questionnaire-9 Score 6 07/15/2025 Patient Health Questionnaire-9 Score 6 07/15/2025 Last PHQ-9: Questionnaire Data Not on file 0 07/15/2025 Housing Stability Answer Date Recorded What is your housing situation today? I have carlos cardona 07/07/[address] you li ve. Do you have problems with any of the following? Pests such as bugs, ants, or mice 07/07/2025 Food Insecurity Answer Date Recorded Within the past 12 months, y ou worried that your food would run out before you got money to buy more: Never True 07/07/2025 Within the past 12 months,th e food you bought just didn't last and you didn't have enough money to get more: Never True Transportation Answer Date Recorded In the past 12 months, has l ack of transportation kept you from medical appts, meetings, work or from getting things needed for daily living? No 09/19/2024 Utilities Answer Date Recorded In the past 12 months, has t he electric, gas, oil or water [employer] threatened to shut off services in your home? No 09/19/2024 Depression Answer Date Recorded Patient Health Questionnaire-2 Score 3 07/15/2025 Internet Access Answer Date Recorded Internet Access Q1 Yes 07/07/2025 Internet Access Q2 I cannot afford it 07/07/2025 Sex and Gender Information Value Date Recorded Sex Assigned at Male 09/12/2022 10:23 AM EDT Legal Sex Male 10:23 AM EDT Gender Identity Male 09/12/2022 10:23 AM EDT Sexual Orientation Straight 09/12/2022 10 :23 AM EDT Last Filed Vital Signs Vital Sign Reading Time Taken Comments Blood Pressure 138/86 07/15/2025 9:53 AM EDT Pulse 81 07/15/2025 9:17 AM EDT Temperature 36.9 C (98.5 F) 07/15/2025 9:17 AM EDT Respiratory Rate 20 07/15/2025 9:17 AM EDT Oxygen Saturation 95% 07/15/2025 9:17 AM EDT Inhaled Oxygen Concentration - - Weight 109 kg (241 lb 6.4 oz) 07/15/2025 9:17 AM EDT Height 175.3 cm (5' 9 ) 07/15/2025 9:17 AM EDT Body Mass Index 35.65 07/15/2025 9:17 AM EDT Plan of Treatment Health Maintenance Due Date Last Done Comments CT Colonography 1965 FIT DNA/Cologuard 1965 FIT 1965 FOBT 1965 HIV Screening 1965 Sigmoidoscopy 1965 Dental Prophylaxis 03/17/2015 09/16/2014, 0 03/10/2014, 09/20/2012 Dental X-Ray: Full Mouth 08/24/2015 08/23/2012 Dental Oral Exam 02/20/2016 08/20/2015, 12/2013, 09/04/2013, Additional history exists Colonoscopy 10/26/2021 10/26/2016 Colorectal Cancer Screening 10/26/2021 COVID-19 Vaccine ( season) 2025 11/08/2022, 11/11/2021, 03/03/2021, Additional history exists Dental X-Ray: Bitewings 02/20/2026 02/20/20, 08/20/2015, 09/16/2014, Additional history exists SDOH Screening 07/07/2026 07/07/2025 Alcohol/Substance Use Screening 07/15/2026 07/15/2025 Depression Screening 07/15/2026 07/15/2025, 07/15/20 Disability Screening 07/15/2026 07/15/2025 Tobacco Screening 07/15/2026 07/15/2025 DTaP/Tdap/Td Vaccines (3 - Td or Tdap) 09/26/2027 09/26/2017, 09/17/2013 Lipid Panel 05/13/2029 05/13/2024 RSV Patients and Patients Aged 60 years or older (1 - 1-dose 75+ series) 02/27/2040 Hepatitis A Vaccines Aged Out 01/29/2020 No long er eligible based on patient's age to complete this topic Zoster Vaccines Completed 10/20/2020, 08/12/2020 Hepatitis B Vaccines Completed 09/23/2021, 01/29/2020, 12/04/2018, Additional history exists Hepatitis C Screening Completed 05/13/2024 Influenza Vaccine Completed 07/14/2025, , 08/25/2023, Additional history exists Pneumococcal Vaccine: 50+ Years Completed 07/15/2025 HIB Vaccines Aged Out No longer eligi ble based on patient's age to complete this topic HPV Vaccines Aged Out No longer eligi ble based on patient's age to complete this topic IPV Vaccines Aged Out No longer eligi ble based on patient's age to complete this topic Meningococcal B Vaccine Aged Out No l onger eligible based on patient's age to complete this topic Meningococcal Vaccine Aged Out No corwin afshin eligible based on patient's age to complete this topic RSV under 20 months Aged Out No longe r eligible based on patient's age to complete this topic Rotavirus Vaccines Aged Out No longer eligible based on patient's age to complete this topic Procedures Procedure Name Priority Date/Time Associated Diagnosis Comments SED RATE BY MODIFIED DANIKAERGREN Routine 07/30/2025 12:32 PM EDT C-REACTIVE PROTEIN Routine 07/30/2025 12 :32 PM EDT COMPREHENSIVE METABOLIC PANEL Routine 07/30/2025 12:32 PM EDT CBC WITH AUTO DIFFERENTIAL Routine 07/30/2025 12:32 PM EDT 20 EXTRACTION, ERUPTED TOOTH OR EXPOSED ROOT (ELEVATION/FORCEPS REMOVAL) Routine 06/24/2025 8:00 AM EDT CASE PRESENTATION, DETAILED AND EXTENSIVE TREATMENT PLANNING Routine 06/24/2025 8:00 AM EDT INTRAORAL - PERIAPICAL FIRST RADIOGRAPHIC IMAGE Routine 06/23/2025 11:00 AM EDT CASE PRESENTATION, DETAILED AND EXTENSIVE TREATMENT PLANNING Routine 06/23/2025 11:00 AM EDT LIMITED ORAL EVALUATION - PROBLEM FOCUSED Routine 06/23/2025 11:[address] CHEST WO CONTRAST Routine 05/08/2025 11:31 AM EDT LACTIC ACID Routine 05/07/2025 2:31 PM EDT HIGH SENSITIVITY TROPONIN I Routine 05/07/2025 12:30 PM EDT MAGNESIUM Routine 05/07/2025 12:30 PM EDT COMPREHENSIVE METABOLIC PANEL Routine 05/07/2025 12:30 PM EDT CBC WITH AUTO DIFFERENTIAL Routine 05/07/2025 12:30 PM EDT XR CHEST 1 VIEW Routine 05/07/2025 11:04 AM EDT BITEWING - SINGLE RADIOGRAPHIC IMAGE Routine 02/19/2025 1:00 PM EDT HEPATITIS C AB W/REFL TO HCV RNA, QN, PCR Routine 05/13/2024 9:05 AM EDT Encounter for preventive health examination LIPID PANEL, STANDARD Routine 05/13/2024 9:05 AM EDT Encounter for preventive health examination HM COLONOSCOPY Routine 10/26/2016 PERIODIC ORAL EVALUATION - ESTABLISHED PATIENT Routine 08/20/2015 12:00 AM EDT PROPHYLAXIS - ADULT Routine 09/16/2014 1 2:00 AM EST INTRAORAL - COMPLETE SERIES OF RADIOGRAPHIC IMAGES Routine 08/23/2012 12:00 AM EDT from Last 3 Months or Most Recently Relevant to Health Maintenance Results * (ABNORMAL) CBC auto differential (07/30/2025 12:32 PM EDT) Only the most recent of2 resultswithin the time period is included. White Blood Count 7.4 4.8 - 10.8 X10*3/uL [facility] Red Blood Count 3.37(L) 4.60 - 5.80 X10*6/uL [facility] Hemoglobin 10.2(L) 14.0 - 18.0 g/dl [facility] Hematocrit 30.9(L) 42.0 - 52.0 % [facility] Mean Corpuscular Volume 91.7 80.0 - 98.0 fL [facility] Mean Corpuscular Hemoglobin 30.3 27.0 - 33.0 pg [facility] Mean Corpuscular HGB Conc 33.0 31.0 - 36.0 g/dl [facility] Red Cell Distribution Width 14.6 11.0 - 16.0 % [facility] Platelet Count 229 160 - 400 X10*3/uL [facility] Mean Platelet Volume 9.4 9.4 - 12.4 fL [facility] Neutrophils Percent Auto 65.9 45 - 73 % [facility] Imm Gran Pct Auto 0.5(H) 0.0 - 0.4 % [facility] Lymphocytes Percent Auto 22.0 20 - 40 % [facility] Monocytes Percent Auto 7.9 2 - 11 % [facility] Eosinophils Percent Auto 3.3 0 - 4 % [facility] Basophils Percent Auto 0.4 0 - 2 % [facility] NRBC Pct Auto 0.0 0.0 - 0.2 /100WBC [facility] Neutrophils Absolute Auto 4.9 2.0 - 8.3 x10*3/uL [facility] Imm Gran Abs Auto 0.04(H) 0.00 - 0.03 X10*3/uL [facility] Lymphocytes Absolute Auto 1.6 1.2 - 4.9 X10*3/uL [facility] Monocytes Absolute Auto 0.6 0.1 - 1.2 X10*3/uL [facility] Eosinophils Absolute Auto 0.2 0.0 - 0.4 X10*3/uL [facility] Basophils Absolute Auto 0.0 0.0 - 0.2 X10*3/uL [facility] NRBC Abs Auto 0.000 0.0 - 0.012 X10*3/uL [facility] 07/30/2025 12:3 2 PM EDT 07/30/2025 12:40 PM EDT Generic External Data Provider LAB BLOOD ORDERAB LES Final Result Performing Organization Address [facility] Co de Phone Number [facility] [address] [place] [phone] * (ABNORMAL) Sed Rate by Modified Falguniren (07/30/2025 12:32 PM EDT) Erythrocyte Sedimentation Rate 64(H) 0 - 15 MM/HR [facility] Comment:Patients with polycy themia and many hemoglobin abnormalitiesmay have depressed sed rates whereas patients with anemiamay have elevated sed rates. 07/30/2025 12:3 2 PM EDT 07/30/2025 12:40 PM EDT Generic External Data Provider LAB BLOOD ORDERAB LES Final Result Performing Organization Address [facility] Co de Phone Number [facility] [address] [place] [phone] * (ABNORMAL) C-reactive Protein (07/30/2025 12:32 PM EDT) C Reactive Protein 0.78(H) < or = 0.50 mg/dL [facility] 07/30/2025 12:3 2 PM EDT 07/30/2025 12:40 PM EDT us Generic External Data Provider LAB BLOOD ORDERAB LES Final Result [facility] [address], [place] [phone] * (ABNORMAL) Comprehensive Metabolic Panel (07/30/2025 12:32 PM EDT) Only the most recent of2 resultswithin the time period is included. Sodium 142 135 - 145 mmol/L [facility] Potassium 4.7 3.3 - 5.1 mmol/L [facility] Chloride 106 96 - 108 mmol/L [facility] Carbon Dioxide 28 22 - 29 mmol/L [facility] Anion Gap 13 12 - 20 [facility] Urea Nitrogen (BUN) 15 9 - 16 mg/dL [facility] Creatinine, Serum 1.82(H) 0.5 - 1.4 mg/dL [facility] Creatinine Clr Calc Pharmacy 54.6 [facility] Comment:eGFR (calculated fro m the MDRD study equation) and eCrCl(calculated from the Cockcroft-Gault equation) are based ondifferent parameters and may not yield comparable results.If eCrCl result is absurd, please check patient'sheight/weight. Estimated Glomerular Filt Rate 38 [facility] Comment:Chronic Kidney Disea se: Estimated GFR < 60 mL/min/1.21a4Ghkevk Kidney Disease: Estimated GFR < 15 mL/min/1.73m2 Glucose 93 60 - 115 mg/dL [facility] Calcium 8.7 8.4 - 10.2 mg/dL [facility] Bilirubin, Total 0.1 0.0 - 1.0 mg/dL [facility] Aspartate Amino Transferase 26 5 - 37 U/L [facility] Alanine Aminotransferase 15 0 - 40 U/L [facility] Total Protein 7.7 6.5 - 8.0 g/dL [facility] Albumin Level 3.7 3.5 - 5.0 g/dL [facility] Alkaline Phosphatase 63 39 - 117 U/L [facility] 07/30/2025 12:3 2 PM EDT 07/30/2025 12:40 PM EDT us Generic External Data Provider LAB BLOOD ORDERAB LES Final Result [facility] [address] [place] [phone] * CT Chest w/o Contrast (05/08/2025 11:31 AM EDT) Anatomical Region Laterality Modality Body, Chest Computed Tomogra phy 05/08/2025 11:3 1 AM EDT Narrative 05/08/2025 12:14 PM EDT [address] [address] [address] Scan Report Signed Patient: Jayden Pierce MR#: [id number] : 1965 Acct:[id number] Age/Sex: 60 / M ADM Date: 05/07/25 Loc: HO.S3 363-[address]: Malina Mcnally DNP Ordering Physician: Malina Mcnally DNP Date of Service: 05/08/25 Procedure(s): CT chest wo IV con Accession Number(s): [id number] cc: [facility]; Malina Mcnally DNP Report Number: [id number]: Total DLP = 304.00 mGy-cm EXAMINATION: CT CHEST WITHOUT IV CONTRAST INDICATION: PNA COMPARISON: Correlation is made with an AP portable view of the chest dated 05/07/2025. TECHNIQUE: Helical CT scan of the chest was performed without intravenous contrast. Coronal and sagittal reformatted images were generated and reviewed. This CT exam was performed with one or more of the following dose reduction techniques: automated exposure control, adjustment of the mA and/or kV according to patient size, use of iterative reconstruction technique. DLP: 304 mGy-cm CHEST: THYROID: The thyroid is unremarkable. LUNGS: There is bronchial wall thickening in both lower lobes with associated patchy airspace opacities, consistent with pneumonia. The upper lobes are clear. MEDIASTINUM: There are subcentimeter paratracheal and AP window lymph nodes. MARGUERITE: Evaluation of the hilar regions is limited by lack of intravenous contrast material. CARDIOVASCULATURE: The heart is normal in size. There is no pericardial effusion. The thoracic aorta is normal in caliber. DEGREE OF CORONARY CALCIFICATION: moderate PLEURA: There is no pleural effusion. No pneumothorax. AXILLA: There is no axillary lymphadenopathy. BONES AND SOFT TISSUES: There is degenerative disc disease of the spine. UPPER ABDOMEN: The visualized portions of the liver, spleen, and adrenals have an unremarkable unenhanced appearance. CT/CT chest wo IV con IMPRESSION: Bronchial wall thickening in both lower lobes with associated patchy airspace opacities, compatible with pneumonia. Follow-up is recommended to document resolution. Electronically signed by: J Luis Hugo MD 05/08/2025 12:11 PM EDT RP Dictated By: J Luis Hugo MD Signed By: <Electronically signed by J Luis Hugo MD in OV> 05/08/25 1211 DD/ 1131 TD/TT: 05/08/25 1155 Venue Attendant: Procedure Note Donotuseinterpreter, Image - 05/08/[address] [place] [address] [address] Scan Report Signed Patient: Luisa Pierce#: [id number] : 1965Acct:[id number] Age/Sex: 60 / MADM Date: 05/07/25 Loc: HO.S3 363-[address]: Malina Mcnally DNP Ordering Physician: Malina Mcnally DNP Date of Service: 05/08/25 Procedure(s): CT chest wo IV con Accession Number(s): [id number] cc: [facility]; Malina Mcnally DNP Report Number: [id number]: Total DLP = 304.00 mGy-cm EXAMINATION: CT CHEST WITHOUT IV CONTRAST INDICATION: PNA COMPARISON: Correlation is made with an AP portable view of the chest dated 05/07/2025. TECHNIQUE: Helical CT scan of the chest was performed without intravenous contrast. Coronal and sagittal reformatted images were generated and reviewed. This CT exam was performed with one or more of the following dose reduction techniques: automated exposure control, adjustment of the mA and/or kV according to patient size, use of iterative reconstruction technique. DLP: 304 mGy-cm CHEST: THYROID: The thyroid is unremarkable. LUNGS: There is bronchial wall thickening in both lower lobes with associated patchy airspace opacities, consistent with pneumonia. The upper lobes are clear. MEDIASTINUM: There are subcentimeter paratracheal and AP window lymph nodes. MARGUERITE: Evaluation of the hilar regions is limited by lack of intravenous contrast material. CARDIOVASCULATURE: The heart is normal in size. There is no pericardial effusion. The thoracic aorta is normal in caliber. DEGREE OF CORONARY CALCIFICATION: moderate PLEURA: There is no pleural effusion. No pneumothorax. AXILLA: There is no axillary lymphadenopathy. BONES AND SOFT TISSUES: There is degenerative disc disease of the spine. UPPER ABDOMEN: The visualized portions of the liver, spleen, and adrenals have an unremarkable unenhanced appearance. CT/CT chest wo IV con IMPRESSION: Bronchial wall thickening in both lower lobes with associated patchy airspace opacities, compatible with pneumonia. Follow-up is recommended to document resolution. Electronically signed by: J Luis Hugo MD 05/08/2025 12:11 PM EDT Dictated By: J Luis Hugo MD Signed By: <Electronically signed by J Luis Hugo MD in OV> 05/08/25 1211 DD/ 1131 TD/TT: 05/08/25 1155 Venue Attendant: [facility] External Provider IMG CT PROCEDURES Final Result * Lactic Acid (05/07/2025 2:31 PM EDT) Lactic Acid 1.3 0.5 - 2.0 mmol/L [facility] 05/07/2025 2:31 PM EDT 05/07/2025 2:36 PM EDT Generic External Data Provider LAB BLOOD ORDERAB LES Final Result Performing Organization Address [facility] de Phone Number [facility] [address] [place] [phone] * High Sensitivity Troponin I (05/07/2025 12:30 PM EDT) [facility] TROPONIN I HIGH SENSITIVITY 5.3 <3.5 - 35.0 ng/L [facility] Comment:The [employer] high sens itivity Troponin-I results should beused in conjunction with other diagnostic information suchas ECG, clinical observations and information, and patientsymptoms to aid in the diagnosis of [place]. 05/07/2025 12:3 0 PM EDT 05/07/2025 2:30 PM EDT Generic External Data Provider LAB BLOOD ORDERAB LES Final Result Performing Organization Address [facility] de Phone Number [facility] [address] [place] [phone] * Magnesium (05/07/2025 12:30 PM EDT) [facility] Magnesium 1.6 1.6 - 2.6 mg/dL [facility] 05/07/2025 12:3 0 PM EDT 05/07/2025 12:32 PM EDT Generic External Data Provider LAB BLOOD ORDERAB LES Final Result Performing Organization Address [facility] de Phone Number [facility] [address] [place] [phone] * XR Chest 1 View (05/07/2025 11:04 AM EDT) Anatomical Region Laterality Modality Chest Radiographic Kendra ging 05/07/2025 11:0 4 AM EDT Narrative 05/07/2025 12:13 PM EDT [address] [address] XRay Report Signed Patient: Jayden Pierce MR#: [id number] : 1965 Acct:[id number] Age/Sex: 60 / M ADM Date: 05/07/25 Loc: HO.ED Attending Dr: Ordering Physician: Gerardo Navarro PA-C Date of Service: 05/07/25 Procedure(s): XR chest 1V Accession Number(s): [id number] cc: Gerardo Navarro PA-C; [facility] EXAMINATION: XR CHEST CLINICAL INFORMATION: cough, CP COMPARISON: 10/17/2024, 09/24/2024. TECHNIQUE: PA view of the chest was obtained. FINDINGS: The cardiac, hilar, and mediastinal contours are normal. Mild aortic calcifications. Lungs demonstrate subtle increased bibasilar opacities. Mid and upper lungs clear. No pneumothorax or effusion. No focal osseous or soft tissue abnormality. There are degenerative changes in the spine and involving the right greater than left shoulder joints. XR/XR chest 1V IMPRESSION: Subtly increased bibasilar opacities suspicious for bibasilar pneumonia in the appropriate clinical setting. Electronically signed by: Rojelio Julien MD 05/07/2025 12:10 PM EDT Dictated By: Rojelio Julien MD Signed By: <Electronically signed by Rojelio Julien MD in OV> 05/07/25 1210 DD/ 1104 TD/TT: 05/07/25 1203 Venue Attendant: Procedure Note Donotuseinterpreter, Image - 05/07/2025 [facility] [address] [place] [address] XRay Report Signed Patient: Toshia PierceR#: [id number] : 1965Acct:[id number] Age/Sex: 60 / MADM Date: 05/07/25 Loc: HO.ED Attending Dr: Ordering Physician: Gerardo Navarro PA-C Date of Service: 05/07/25 Procedure(s): XR chest 1V Accession Number(s): [id number] cc: Gerardo Navarro PA-C; [facility] EXAMINATION: XR CHEST CLINICAL INFORMATION: cough, CP COMPARISON: 10/17/2024, 09/24/2024. TECHNIQUE: PA view of the chest was obtained. FINDINGS: The cardiac, hilar, and mediastinal contours are normal. Mild aortic calcifications. Lungs demonstrate subtle increased bibasilar opacities. Mid and upper lungs clear. No pneumothorax or effusion. No focal osseous or soft tissue abnormality. There are degenerative changes in the spine and involving the right greater than left shoulder joints. XR/XR chest 1V IMPRESSION: Subtly increased bibasilar opacities suspicious for bibasilar pneumonia in the appropriate clinical setting. Electronically signed by: Rojelio Julien MD 05/07/2025 12:10 PM EDT RP Dictated By: Rojelio Julien MD Signed By: <Electronically signed by Rojelio Julien MD in OV> 05/07/25 1210 DD/ 1104 TD/TT: 05/07/25 1203 Venue Attendant: [facility] External Provider IMG XR PROCEDURES Final Result * Hepatitis C Antibody with Reflex to HCV, RNA, Quantitative, Real-Time PCR (05/13/2024 9:05 AM EDT) Hepatitis C Antibody Nonreactive Nonreactive [facility] Comment:Antibodies to HCV no t detected; does not exclude early acuteHCV infection. Blood Venous blood specimen / Unknown 05/13/2024 9:05 AM EDT 05/13/2024 11:43 AM EDT Dariela Scott MD LAB BLOOD ORDERABLES Final Result [facility] [address] [place] [phone] * (ABNORMAL) Lipid Panel, Standard (05/13/2024 9:05 AM EDT) Triglycerides 310(H) <150 mg/dL [facility] Comment:Desirable Triglyceri de: less than 150 mg/dLBorderline High Triglyceride 150-199 mg/dLHigh Triglyceride: 200-499 mg/dLVery High Triglyceride: greater than or equal to 5OO mg/dL Cholesterol 320(H) <200 mg/dL [facility] Comment:Desirable Cholestero l: less than 200 mg/dLBorderline High Cholesterol: 200-239 mg/dLHigh Cholesterol: greater than 239 mg/dL LDL Cholesterol Calculated 223(H) <100 mg/dL [facility] Comment:Desirable LDL: less than 100 mg/dLNear Optimal/Above Optimal LDL: 110- 129 mg/dLBorderline High LDL: 130-159 mg/dLHigh LDL: 160-189 mg/dLVery High LDL: greater than or equal to 190 mg/dL HDL Cholesterol 35(L) >40 mg/dL [facility] Comment:Desirable HDL: great er than 40 mg/dL Note: This HDL assay may give artificially low results in patients with liver disease. Blood Venous blood specimen / Unknown 05/13/2024 9:05 AM EDT 05/13/2024 11:39 AM EDT us Dariela Scott MD LAB BLOOD ORDERABLES Final Result [facility] [address] [place] [phone] * Colonoscopy (10/26/2016) us Historical Provider HEALTH MAINTENANCE Final Result from Last 3 Months or Most Recently Relevant to Health Maintenance Insurance [employer] [id number] [facility] STAND ADULT Care Teams Index Editor Relationship Specialty Start Date End Date Dariela Zapata MD [address] [place] [address] PCP - General Family Medicine 10/14/19
--- OUTSIDE RECORDS SUMMARY | 2025-07-30 15:27 | XMS_ITS | Encounter Summary ---
Author Organization [employer] Address [address] 7[address] [place] [address] Care Team Providers Care Manager Plumbing Name Role Phone Dariela Zapata MD Primary Care Provide r Encounter Details Date Type Department Care Team (Late st Contact Info) Description 09/16/2024 Orders Only [facility] [address] [place], [place] [phone] Dariela Zapata MD [address] [place] [address] Social History Tobacco Use Types Packs/Day Years [...] t he electric, gas, oil or water [employer] threatened to shut off services in your [...] on file documented as of this encounter Procedures Procedure Name Priority Date/Time Associated Diagnosis Comments XR CHEST 1 VIEW Routine 09/24/2024 10:28 AM EST SARS COV2/INFLUENZA A/B AND RSV RNA QL NAAT Routine 09/24/2024 10:25 AM EST documented in this encounter Results * XR Chest 1 View (09/24/2024 10:28 AM EST) Anatomical Region Laterality Modality Chest Radiographic Kendra ging 09/24/2024 10:2 8 AM EST Narrative 09/24/2024 10:47 AM EST [place] [address] XRay Report Signed Patient: Jayden Pierce MR#: [id number] : 1965 Acct:[id number] Age/Sex: 59 / M ADM Date: 09/24/24 Loc: HO.ED Attending Dr: Ordering Physician: Generic ED Physician Date of Service: 09/24/24 Procedure(s): XR chest 1V Accession Number(s): [id number] cc: Dariela Zapata MD; Generic ED Physician EXAMINATION: XR CHEST CLINICAL INFORMATION: Cough COMPARISON: 05/23/2020. 03/13/2020. TECHNIQUE: Frontal view of the chest was obtained. FINDINGS: The cardiac, hilar, and mediastinal contours are normal. There is opacity in the superior segment left lower lobe as well as the lateral and basal regions. Findings are highly suspicious for pneumonia. Cannot exclude underlying mass given the appearance. Probable small left effusion, likely parapneumonic. Right lung is clear. 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 No suspicious bony abnormalities. XR/XR chest 1V IMPRESSION: 1. Opacity in the superior segment left lower lobe with associated small effusion highly suspicious for left lower lobe pneumonia with a small parapneumonic effusion. Cannot definitively exclude mass given the appearance of the left perihilar abnormality, and would correlate with patient's clinical presentation. 2. 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 Electronically signed by: Rojelio Julien MD 09/24/2024 10:44 AM EST Dictated By: Rojelio Julien MD Signed By: <Electronically signed by Rojelio Julien MD in OV> 09/24/24 1044 DD/ 1028 TD/TT: 09/24/24 1030 Interior Horticulturist: Procedure Note Donotuseinterpreter, Image - 09/24/2024 [place] [address] XRay Report Signed Patient: Luisa Pierce#: [id number] : 1965Acct:[id number] Age/Sex: 59 / MADM Date: 09/24/24 Loc: .ED Attending Dr: Ordering Physician: Generic ED Physician Date of Service: 09/24/24 Procedure(s): XR chest 1V Accession Number(s): [id number] cc: Dariela Zapata MD; Generic ED Physician EXAMINATION: XR CHEST CLINICAL INFORMATION: Cough COMPARISON: 05/23/2020. 03/13/2020. TECHNIQUE: Frontal view of the chest was obtained. FINDINGS: The cardiac, hilar, and mediastinal contours are normal. There is opacity in the superior segment left lower lobe as well as the lateral and basal regions. Findings are highly suspicious for pneumonia. Cannot exclude underlying mass given the appearance. Probable small left effusion, likely parapneumonic. Right lung is clear. 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 No suspicious bony abnormalities. XR/XR chest 1V IMPRESSION: 1. Opacity in the superior segment left lower lobe with associated small effusion highly suspicious for left lower lobe pneumonia with a small parapneumonic effusion. Cannot definitively exclude mass given the appearance of the left perihilar abnormality, and would correlate with patient's clinical presentation. 2. 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 Electronically signed by: Rojelio Julien MD 09/24/2024 10:44 AM EST Dictated By: Rojelio Julien MD Signed By: <Electronically signed by Rojelio Julien MD in OV> 09/24/24 1044 DD/ 1028 TD/TT: 09/24/24 1030 Interior Horticulturist: [facility] External Provider IMG XR PROCEDURES Final Result * SARS-CoV-2 RNA, Influenza A/B, and RSV RNA, Ql NAAT (09/24/2024 10:25 AM EST) Influenza A PCR NEGATIVE Negative [facility] Influenza B PCR NEGATIVE Negative [facility] Resp Syncy Virus RNA Qual PCR NEGATIVE Negative [facility] SARS COV2 PCR NEGATIVE Negative [facility] Comment:All test results mus t be correlated with clinical findings.Negative results do not preclude SARS-CoV2, influenza Avirus, influenza B virus and/or RSV infectionand should not be used as the sole basis for treatment orother patient management decisions. Negative results must becombined with clinical observations, patient history, andepidemiological information.This test has not been evaluated for monitoring treatment ofinfection.This test has been authorized by the FDA under an EmergencyUse Authorization (EUA) for use by authorized laboratories.Testing performed on the import2 GeneXpert utilizingreal-time RT-PCR.All SARS CoV2 and positive influenza A/B results arereported to [facility]. 09/24/2024 10:2 5 AM EST 09/24/2024 10:28 AM EST Generic External Data Provider LAB MICROBIOLOGY - GENERAL ORDERABLES Final Result [facility] [address] [place] [phone] documented in this encounter Visit Diagnoses Not on filedocumented in this encounter Additional Health Concerns Assessment Noted Time PHQ-9 Depression Total Score: 0 03/25/20 24 2:34 PM EDT documented as of this encounter Care Teams Manager Plumbing Relationship Specialty Start Date End Date Dariela Zapata MD [address] [place] [phone] PCP - General Family Medicine 10/14/19 documented as of this encounter
--- OUTSIDE RECORDS SUMMARY | 2025-07-30 15:27 | XMS_ITS | Encounter Summary ---
Author Organization [employer] Address [address] [facility] 7[address] [place] [address] Care Team Providers Care Jet Mechanic Name Role Phone Dariela Zapata MD Primary Care Provide r Reason for Visit * Reason Comments Med Refill Encounter Details Date Type Department Care Team ([facility] st Contact Info) Description 01/11/2024 Refill [facility] [address] [place] [address] Dariela Zapata MD [address] [place] [address] Insomnia, unspecified type; Pain; Crohn's disease with complication, unspecified gastrointestinal tract location (CMS/HCC) Social History Tobacco Use Types Packs/Day Years Used Date Smoking Tobacco: Never Assessed Housing Stability Answer Date Recorded What is your housing situation today? I do not have housing (Staying with others, in a hotel, in a custodial, living outside on the street, on a [...] encounter Visit Diagnoses Diagnosis Insomnia, unspecified type Pain Generalized pain Crohn's disease with complication, unspecified gastrointestinal tract location (CMS/HCC) documented in this encounter Care Teams Jet Mechanic Relationship Specialty Start Date End Date Dariela Zapata MD [address] [place] [phone] PCP - General Family Medicine 10/14/19 documented as of this encounter
--- OUTSIDE RECORDS SUMMARY | 2025-07-30 15:27 | XMS_ITS | Encounter Summary ---
Author Organization [employer] Address [address] [facility] 7t [place] [address] Care Team Providers Care Correctional Sergeant Name Role Phone Dariela Zapata MD Primary Care Provide r Reason for Visit * Reason Comments Med Refill Encounter Details Date Type Department Care Team ([facility] st Contact Info) Description 11/09/2024 Refill [facility] [address] [place] [address] Dariela Zapata MD [address] [place] [address] Pain Social History Tobacco Use Types Packs/Day Years [...] as of this encounter Visit Diagnoses Diagnosis Pain Generalized pain documented in this encounter Additional Health Concerns Assessment Noted Time PHQ-9 Depression Total Score: 0 03/25/20 24 2:34 PM EDT documented as of this encounter Care Teams Correctional Sergeant Relationship Specialty Start Date End Date Dariela Zapata MD [address] [place] [phone] PCP - General Family Medicine 10/14/19 documented as of this encounter
--- OUTSIDE RECORDS SUMMARY | 2025-07-30 15:27 | XMS_ITS | Encounter Summary ---
Author Organization [employer] Address [address] [facility] 7t [place] [address] Care Team Providers Care Training And Development Director Name Role Phone Dariela Zapata MD Primary Care Provide r Reason for Visit * Reason Onset Date Comments Med Refill 07/23/2024 Encounter Details Date Type Department Care Team ([facility] st Contact Info) Description 07/23/2024 Telephone [facility] [address] [place] [phone] Dariela Zapata MD [address] [place] [address] Med Refill Social History Tobacco Use Types [...] with others, in a hotel, in a intermediate, living outside on the street, on a [...] Telephone Encounter - Celena Cannon LPN - 07/23/2024 9:47 AM EDT Medication pended to provider. * Telephone Encounter - Chaitanya Caballero - 07/23/2024 9:36 AM EDT TC from pt requesting medication refill. Medications needing refill : zolpidem (Ambien) 10 MG tablet and lidocaine (Lidoderm) 5 % patch To be sent to: [facility] [place], [place] - [address] [facility] documented in this encounter Plan of Treatment Not on file documented as of this encounter Visit Diagnoses Not on filedocumented in this encounter Additional Health Concerns Assessment Noted Time PHQ-9 Depression Total Score: 0 03/25/20 24 2:34 PM EDT documented as of this encounter Care Teams Training And Development Director Relationship Specialty Start Date End Date Dariela Zapata MD [address] [facility] [place] [address] PCP - General Family Medicine 10/14/19 documented as of this encounter
--- OUTSIDE RECORDS SUMMARY | 2025-07-30 15:27 | XMS_ITS | Encounter Summary ---
Author Organization [employer] Address [address] [facility] [address] 7[address] [place] [address] Care Team Providers Care Molded Grid And Parts Inspector Name Role Phone Dariela Zapata MD Primary Care Provide r Encounter Details Date Type Department Care Team (Late st Contact Info) Description 02/28/2023 Orders Only [facility] [address] [place] [address] Celena Cannon LPN Social History Tobacco Use Types Packs/Day Years [...] Diagnoses Not on filedocumented in this encounter Care Teams Molded Grid And Parts Inspector Relationship Specialty Start Date End Date Dariela Zapata MD [address] [place] [phone] PCP - General Family Medicine 10/14/19 documented as of this encounter
--- OUTSIDE RECORDS SUMMARY | 2025-07-30 15:27 | XMS_ITS | Encounter Summary ---
Author Organization [employer] Address [address] [facility] 7t [place] [address] Care Team Providers Care Top Bottom Attaching Machine Operator Name Role Phone Dariela Zapata MD Primary Care Provide r Encounter Details Date Type Department Care Team (Late st Contact Info) Description 07/24/2023 Orders Only [facility] [address] [place] [address] Provider, Rajiv, Social History Tobacco Use Types Packs/Day Years [...] Procedure Name Priority Date/Time Associated Diagnosis Comments COLONOSCOPY Routine 10/26/2016 documented in this encounter Results * Hm Colonoscopy (10/26/2016) Historical Provider HEALTH MAINTENANCE Final Result documented in this encounter Visit Diagnoses Not on filedocumented in this encounter Care Teams Top Bottom Attaching Machine Operator Relationship Specialty Start Date End Date Dariela Zapata MD [address] [place] [address] PCP - General Family Medicine 10/14/19 documented as of this encounter
--- OUTSIDE RECORDS SUMMARY | 2025-07-30 15:27 | XMS_ITS | Encounter Summary ---
Author Organization [employer] Address [address] [facility] 7t [place] [address] Care Team Providers Care Electric Wirer Name Role Phone Dariela Zapata MD Primary Care Provide r Reason for Visit * Reason Onset Date Comments Durable Medical Equipment 07/04/2025 Encounter Details Date Type Department Care Team (Late st Contact Info) Description 07/04/2025 Telephone [facility] [address] [place] [address] Dariela Zapata MD [address] [place] [address] Durable Medical Equipment Social History Tobacco Use Types Packs/Day Years [...] encounter Miscellaneous Notes * Telephone Encounter - Peter Huang - 07/04/2025 1:43 PM EDT Tc from pt requesting a DME order for a portable toilet. Pt states he just moved in to an apartmentwhere everyone uses one bathroom and he can not wait till other people come out of bathroom when hehas to go Contact pt at [phone] (english) documented in this encounter Plan of Treatment Not on file documented as of this encounter Visit Diagnoses Not on filedocumented in this encounter Additional Health Concerns Assessment Noted Time PHQ-9 Depression Total Score: 0 03/25/20 24 2:34 PM EDT documented as of this encounter Care Teams Electric Wirer Relationship Specialty Start Date End Date Dariela Zapata MD [address] [place] [phone] PCP - General Family Medicine 10/14/19 documented as of this encounter
--- OUTSIDE RECORDS SUMMARY | 2025-07-30 15:27 | XMS_ITS | Encounter Summary ---
Author Organization [employer] Address [address] [facility] 7t [place] [address] Care Team Providers Care Diesel Engine Pipe Fitter Name Role Phone Dariela Zapata MD Primary Care Provide r Encounter Details Date Type Department Care Team ([facility] st Contact Info) Description 07/30/2025 Orders Only GENERIC EXTERNAL DATA DEPARTMENT Provider, Generic External Data Social History Tobacco Use Types Packs/Day Years [...] Procedure Name Priority Date/Time Associated Diagnosis Comments CBC WITH AUTO DIFFERENTIAL Routine 07/30/2025 12:32 PM EDT SED RATE BY MODIFIED WESTERGREN Routine 07/30/2025 12:32 PM EDT C-REACTIVE PROTEIN Routine 07/30/2025 12 :32 PM EDT COMPREHENSIVE METABOLIC PANEL Routine 07/30/2025 12:32 PM EDT documented in this encounter Results * (ABNORMAL) Sed Rate by Modified Westergren (07/30/2025 12:32 PM EDT) Erythrocyte Sedimentation Rate 64(H) 0 - 15 MM/HR [facility] Comment:Patients with polycy themia and many hemoglobin abnormalitiesmay have depressed sed rates whereas patients with anemiamay have elevated sed rates. 07/30/2025 12:3 2 PM EDT 07/30/2025 12:40 PM EDT us Generic External Data Provider LAB BLOOD ORDERAB LES Final Result [facility] [address] [place] [phone] * (ABNORMAL) C-reactive Protein (07/30/2025 12:32 PM EDT) C Reactive Protein 0.78(H) < or = 0.50 mg/dL [facility] 07/30/2025 12:3 2 PM EDT 07/30/2025 12:40 PM EDT us Generic External Data Provider LAB BLOOD ORDERAB LES Final Result [facility] [address] [place] [phone] * (ABNORMAL) Comprehensive Metabolic Panel (07/30/2025 12:32 PM EDT) Sodium 142 135 - 145 mmol/L [facility] Potassium 4.7 3.3 - 5.1 mmol/L [facility] Chloride 106 96 - 108 mmol/L [facility] Carbon Dioxide 28 22 - 29 mmol/L [facility] Anion Gap 13 12 - 20 [facility] Urea Nitrogen (BUN) 15 9 - 16 mg/dL [facility] Creatinine, Serum 1.82(H) 0.5 - 1.4 mg/dL [facility] Creatinine Clr Calc Pharmacy 54.6 [facility] Comment:eGFR (calculated fro m the MDRD study equation) and eCrCl(calculated from the Cockcroft-Gault equation) are based ondifferent parameters and may not yield comparable results.If eCrCl result is absurd, please check patient'sheight/weight. Estimated Glomerular Filt Rate 38 [facility] Comment:Chronic Kidney Disea se: Estimated GFR < 60 mL/min/1.40i1Rsciiz Kidney Disease: Estimated GFR < 15 mL/min/1.73m2 Glucose 93 60 - 115 mg/dL [facility] Calcium 8.7 8.4 - 10.2 mg/dL [facility] Bilirubin, Total 0.1 0.0 - 1.0 mg/dL [facility] Aspartate Amino Transferase 26 5 - 37 U/L [facility] Alanine Aminotransferase 15 0 - 40 U/L [facility] Total Protein 7.7 6.5 - 8.0 g/dL [facility] Albumin Level 3.7 3.5 - 5.0 g/dL [facility] Alkaline Phosphatase 63 39 - 117 U/L [facility] 07/30/2025 12:3 2 PM EDT 07/30/2025 12:40 PM EDT us Generic External Data Provider LAB BLOOD ORDERAB LES Final Result [facility] [address] [place] [phone] * (ABNORMAL) CBC auto differential (07/30/2025 12:32 PM EDT) White Blood Count 7.4 4.8 - 10.8 X10*3/uL [facility] Red Blood Count 3.37(L) 4.60 - 5.80 X10*6/uL [facility] Hemoglobin 10.2(L) 14.0 - 18.0 g/dl [facility] Hematocrit 30.9(L) 42.0 - 52.0 % [facility] Mean Corpuscular Volume 91.7 80.0 - 98.0 fL [facility] Mean Corpuscular Hemoglobin 30.3 27.0 - 33.0 pg [facility] Mean Corpuscular HGB Conc 33.0 31.0 - 36.0 g/dl [facility] Red Cell Distribution Width 14.6 11.0 - 16.0 % [facility] Platelet Count 229 160 - 400 X10*3/uL [facility] Mean Platelet Volume 9.4 9.4 - 12.4 fL [facility] Neutrophils Percent Auto 65.9 45 - 73 % [facility] Imm Gran Pct Auto 0.5(H) 0.0 - 0.4 % [facility] Lymphocytes Percent Auto 22.0 20 - 40 % [facility] Monocytes Percent Auto 7.9 2 - 11 % [facility] Eosinophils Percent Auto 3.3 0 - 4 % [facility] Basophils Percent Auto 0.4 0 - 2 % [facility] NRBC Pct Auto 0.0 0.0 - 0.2 /100WBC [facility] Neutrophils Absolute Auto 4.9 2.0 - 8.3 x10*3/uL [facility] Imm Gran Abs Auto 0.04(H) 0.00 - 0.03 X10*3/uL [facility] Lymphocytes Absolute Auto 1.6 1.2 - 4.9 X10*3/uL [facility] Monocytes Absolute Auto 0.6 0.1 - 1.2 X10*3/uL [facility] Eosinophils Absolute Auto 0.2 0.0 - 0.4 X10*3/uL [facility] Basophils Absolute Auto 0.0 0.0 - 0.2 X10*3/uL [facility] NRBC Abs Auto 0.000 0.0 - 0.012 X10*3/uL [facility] 07/30/2025 12:3 2 PM EDT 07/30/2025 12:40 PM EDT us Generic External Data Provider LAB BLOOD ORDERAB LES Final Result [facility] [address] [place] [phone] documented in this encounter Visit Diagnoses Not on filedocumented in this encounter Additional Health Concerns Assessment Noted Time PHQ-9 Depression Total Score: 6 07/15/20 25 9:19 AM EDT documented as of this encounter Care Teams Diesel Engine Pipe Fitter Relationship Specialty Start Date End Date Dariela Zapata MD [address] [place] [address] PCP - General Family Medicine 10/14/19 documented as of this encounter
--- OUTSIDE RECORDS SUMMARY | 2025-07-30 15:27 | XMS_ITS | Clinical Summary ---
Author Organization [facility] Address [address] [facility] [address] [place] [address] Phone Care Team Providers Care Land Law Examiner Name Role Phone Lucy Bryant MD Primary Care Provider Unav ailable Allergies Active Allergy Reactions Criticality Noted Date Comments Prednisone Other (see comments) 03/19/2021 Medications gabapentin (NEURONTIN) 400 MG capsule Take 1 capsule by mouth 3 (three) times a day Active ferrous sulfate 325 (65 Fe) MG tablet Take 1 tablet by mouth 1 (one) time each day Active felodipine (PLENDIL) 5 MG 24 hr tablet Take 1 tablet by mouth 1 (one) time each day Active rosuvastatin (CRESTOR) 40 MG tablet Take 1 tablet by mouth 1 (one) time each day Active pantoprazole (PROTONIX) 40 MG EC tablet Take 1 tablet by mouth 1 (one) time each day Active metoprolol tartrate (LOPRESSOR) 50 MG tablet Take 1 tablet by mouth 2 (two) times a day Active mesalamine (DELZICOL) [address] capsule Take 2 capsules by mouth 3 (three) times a day Active amoxicillin (AMOXIL) 500 MG capsule TAKE 1 CAPSULE BY MOUTH EVERY 8 HOURS UNTIL FINISHED 01/12/2021 Active mesalamine (Asacol HD) 800 MG EC tablet Take 1 tablet by mouth Active atorvastatin (LIPITOR) 80 MG tablet Take 1 tablet by mouth Active Active Problems Problem Noted Date Diagnosed Date Crohn's disease of small intestine 01/20/2022 Diarrhea 01/20/2022 Chronic kidney disease stage 3 03/19/2021 Hypertensive renal disease 03/19/2021 Chronic back pain 06/05/2013 Crohn's disease 06/05/2013 Overview (01/20/2022): Partial colectomy, had colostomy bag for years. He is not with a GI specialist at this time Gastroesophageal reflux disease 06/05/2013 Hyperlipidemia 06/05/2013 Hypertensive disorder 06/05/2013 Insomnia 06/05/2013 Family History Medical History Relation Comments Dementia Mother Diabetes Mother Heart disease Mother Hypertension Mother Diabetes Sibling Relation Status Comments Father Unknown Mother Alive Sibling Social History Tobacco Use Types Packs/Day Years Used Date Smoking Tobacco: Never Smokeless Tobacco: Never Sex and Gender Information Value Date Recorded Sex Assigned at Not on file Legal Sex Male 5:08 PM EST Gender Identity Not on file Sexual Orientation Not on file Last Filed Vital Signs Vital Sign Reading Time Taken Comments Blood Pressure 150/90 04/18/2022 1:29 PM EDT Pulse 88 04/18/2022 1:29 PM EDT Temperature - - Respiratory Rate - - Oxygen Saturation 95% 04/18/2022 1:29 PM EDT Inhaled Oxygen Concentration - - Weight 112 kg (247 lb 3.2 oz) 04/18/2022 1:29 PM EDT Height 175.3 cm (5' 9 ) 05/22/2020 12:00 PM EDT Body Mass Index 36.51 05/22/2020 12:00 PM EDT Plan of Treatment Health Maintenance Due Date Last Done Comments Pneumococcal Vaccine: 50+ Ye ars (1 of 2 - PCV) 02/27/1984 Influenza Vaccine (#1) 2025 Hepatitis B Vaccine Aged Out No longe r eligible based on patient's age to complete this topic Insurance Medicaid [place] Medicaid [place] Care Teams Land Law Examiner Relationship Specialty Start Date End Date Lucy Bryant MD PCP - General 11/23/20
--- OUTSIDE RECORDS SUMMARY | 2025-07-30 15:27 | XMS_ITS | Encounter Summary ---
Author Organization [employer] Address [address] [facility] 7t h Floor [place] [id number] Care Team Providers Care Bottle Capper Name Role Phone Dariela Zapata MD Primary Care Provide r Reason for Visit * Reason Onset Date Comments Med Refill 01/22/2024 Encounter Details Date Type Department Care Team ([facility] st Contact Info) Description 01/22/2024 Telephone [facility] MEDICINE [address] [place] [address] Dariela Zapata MD [address] [place] [address] Med Refill Social History Tobacco Use Types [...] Telephone Encounter - Celena Cannon LPN - 01/22/2024 10:30 AM EDT Medication pended to PCP. * Telephone Encounter - Pierre Houser - 01/22/2024 10:24 AM EDT TC from pt requesting medication refill. Medications needing refill : lidocaine (Lidoderm) 5 % patch zolpidem (Ambien) 10 MG tablet To be sent to: [facility] - [place], [place] - [address] [place] [address] documented in this encounter Plan of Treatment Not on file documented as of this encounter Visit Diagnoses Not on filedocumented in this encounter Care Teams Bottle Capper Relationship Specialty Start Date End Date Dariela Zapata MD [address] [place] [address] PCP - General Family Medicine 10/14/19 documented as of this encounter
--- OUTSIDE RECORDS SUMMARY | 2025-07-30 15:27 | XMS_ITS | Encounter Summary ---
Author Organization [employer] Address [address] [facility] 7t [place] [address] Care Team Providers Care Piano Assembler Name Role Phone Dariela Zapata MD Primary Care Provide r Encounter Details Date Type Department Care Team (Late st Contact Info) Description 01/16/[address] [facility] MEDICINE [address] [place] [address] Rayne Fierro MD [address] [place] [address] Low back pain at multiple sites (Primary Dx) Social History Tobacco Use Types [...] Procedure Name Priority Date/Time Associated Diagnosis Comments COVID-19 ID NOW (BETANCOURT) Routine 02/17/2023 1:07 PM EDT Low back pain at multiple sites URINALYSIS, COMPLETE, WITH REFLEX TO CULTURE Routine 02/17/2023 12:33 PM EDT Low back pain at multiple sites SODIUM W/O CREATININE, RANDOM URINE Routine 02/17/2023 12:33 PM EDT Low back pain at multiple sites CREATININE, RANDOM URINE Routine 02/17/2023 12:33 PM EDT Low back pain at multiple sites PHOSPHATE ( PHOSPHORUS) Routine 02/17/2023 12:20 PM EDT Low back pain at multiple sites LIPASE Routine 02/17/2023 12:20 PM EDT Low back pain at multiple sites HEPATIC FUNCTION PANEL Routine 3 12:20 PM EDT Low back pain at multiple sites COMPREHENSIVE METABOLIC PANEL Routine 02/17/2023 12:20 PM EDT Low back pain at multiple sites documented in this encounter Results * COVID-19 ID NOW (Pidefarma) (02/17/2023 1:07 PM EDT) IDNOW SERIAL# [id number] [facility] COVID-19 TEST Negative Negative [facility] COVID-19 NOTE See Note [facility] Comment: Results are for the identification of SARS-CoV2 RNA. TheSARS-CoV2 RNA is generally detectable in respiratory samplesduring the acute phase of infection. Positive results areindicative of the presence of SARS-CoV-2 RNA; clinicalcorrelation with patient history and other diagnosticinformation is necessary to determine patient infectionstatus. Positive results do not rule out bacterial infectionor co- infection with other viruses.Testing facilities within the [facility] and itsterritories are required to report all positive results tothe appropriate public health authorities.Negative results should be treated as presumptive and, ifinconsistent with clinical signs and symptoms or necessaryfor patient management, should be tested with differentauthorized or cleared molecular tests. Negative results donot preclude SARS-CoV2 RNA infection and should not be usedas the sole basis for patient management decisions. Negativeresults should be considered in the context of a patient'srecent exposures, history and the presence of clinical signsand symptoms consistent with COVID-19.This test has been authorized by the FDA under an EmergencyUse Authorization (EUA) for use by authorized laboratories.Testing performed on the in2nite ID NOW utilizing NAAT. 02/17/2023 1:07 PM EDT 02/17/2023 1:09 PM EDT [facility] Exter nal Provider LAB MOLECULAR DIAGNOSTICS ORDERABLES Final Result Performing Organization Address [facility] de Phone Number [facility] [address] [place] [phone] * Sodium Without creatinine, Random Urine (02/17/2023 12:33 PM EDT) Sodium Urine Random <20.0 mmol/L [facility] 02/17/2023 12:3 3 PM EDT 02/17/2023 2:21 PM EDT [facility] External Provider LAB BLO OD ORDERABLES Final Result Performing Organization Address [facility] de Phone Number [facility] [address] [place] [phone] * Creatinine, Random Urine (02/17/2023 12:33 PM EDT) Creatinine, Urine 379.60 mg/dL [facility] 02/17/2023 12:3 3 PM EDT 02/17/2023 2:21 PM EDT [facility] External Provider LAB URI NE ORDERABLES Final Result Performing Organization Address [facility] de Phone Number [facility] [address] [place] [phone] * (ABNORMAL) Urinalysis, Complete, with Reflex to Culture (02/17/2023 12:33 PM EDT) Color Urine Dark Yellow [facility] Appearance Urine Cloudy [facility] PH 5.0 5.0 - 9.0 [facility] Glucose Urine UA Negative Negative mg/dL [facility] Urine Blood Small (1+)(A) Negative [facility] Specific [place] - Urine 1.020 1.005 - 1.025 [facility] Urine Protein 100 (2+)(A) Neg-Trace mg/dL [facility] Urine Ketones Trace Negative mg/dL [facility] Nitrite Urine Negative Negative [facility] Leukocyte Esterase Urine Negative Negative [facility] RBC Urine 0-2 0 - 2 /HPF [facility] Urine WBC 0-5 0 - 5 /HPF [facility] Urine Squamous Epithelial Cell 6-10 0 - 2 /HPF [facility] Other Crystals Urine Present [facility] Urine Bacteria None Seen None Seen [facility] Hyaline Casts, Urine 11-20 0 - 2 /LPF [facility] 02/17/2023 12:3 3 PM EDT 02/17/2023 12:42 PM EDT Narrative [facility] - 02/17/2023 12:54 PM EDT [id number], Clean Catch [facility] External Provider LAB URI NE ORDERABLES Final Result Performing Organization Address City/[facility]/ZIP Co de Phone Number [facility] [address] [place] [phone] * (ABNORMAL) Phosphate (As Phosphorus) (02/17/2023 12:20 PM EDT) Phosphorus 5.9(H) 2.7 - 4.5 mg/dL [facility] 02/17/2023 12:2 0 PM EDT 02/17/2023 12:24 PM EDT [facility] External Provider LAB BLO OD ORDERABLES Final Result Performing Organization Address [facility] Co de Phone Number [facility] [address] [place] [phone] * (ABNORMAL) Lipase (02/17/2023 12:20 PM EDT) Lipase 286(H) 8 - 78 U/L [facility] 02/17/2023 12:2 0 PM EDT 02/17/2023 12:24 PM EDT [facility] External Provider LAB BLO OD ORDERABLES Final Result Performing Organization Address [facility] de Phone Number [facility] [address] [place] [phone] * Hepatic Function Panel (02/17/2023 12:20 PM EDT) Pathologist [facility] Bilirubin, Direct 0.3 0.0 - 0.5 mg/dL [facility] 02/17/2023 12:2 0 PM EDT 02/17/2023 12:24 PM EDT [facility] External Provider LAB BLO OD ORDERABLES Final Result Performing Organization Address [facility] de Phone Number [facility] [address] [place] [phone] * (ABNORMAL) Comprehensive Metabolic Panel (02/17/2023 12:20 PM EDT) Sodium 133(L) 135 - 145 mmol/L [facility] Potassium 4.0 3.3 - 5.1 mmol/L [facility] Chloride 104 96 - 108 mmol/L [facility] Carbon Dioxide 16(L) 22 - 29 mmol/L [facility] Anion Gap 17 12 - 20 [facility] Urea Nitrogen (BUN) 79(H) 9 - 16 mg/dL [facility] Creatinine, Serum 10.12(HH) 0.5 - 1.4 mg/dL [facility] Comment:Critical value for C RES: Results called to and read clarisse MAHAJAN Person calling: CHRISTINAPatricia Date: 02/17/23 Time: 1245 Creatinine Clr Calc Pharmacy 9.5 [facility] Comment:eGFR (calculated fro m the MDRD study equation) and eCrCl(calculated from the Cockcroft-Gault equation) are based ondifferent parameters and may not yield comparable results.If eCrCl result is absurd, please check patient'sheight/weight. Estimated Glomerular Filt Rate 5 [facility] Comment:NOTE: For -Am erican individuals, multiply the result by 1.210.Chronic Kidney Disease: Estimated GFR < 60 mL/min/[id number] Kidney Disease: Estimated GFR < 15 mL/min/1.73m2 Glucose 113 60 - 115 mg/dL [facility] Calcium 8.1(L) 8.4 - 10.2 mg/dL [facility] Bilirubin, Total 0.7 0.0 - 1.0 mg/dL [facility] Aspartate Amino Transferase 43(H) 5 - 37 U/L [facility] Alanine Aminotransferase 30 0 - 40 U/L [facility] Total Protein 7.9 6.5 - 8.0 g/dL [facility] Albumin Level 4.0 3.5 - 5.0 g/dL [facility] Alkaline Phosphatase 92 39 - 117 U/L [facility] 02/17/2023 12:2 0 PM EDT 02/17/2023 12:24 PM EDT [facility] External Provider LAB BLO OD ORDERABLES Final Result [facility] [address] [place] [phone] [phone] documented in this encounter Visit Diagnoses Diagnosis Low back pain at multiple sites- Primary documented in this encounter Care Teams Piano Assembler Relationship Specialty Start Date End Date Dariela Zapata MD [address] [place] [phone] PCP - General Family Medicine 10/14/19 documented as of this encounter
--- OUTSIDE RECORDS SUMMARY | 2025-07-30 15:27 | XMS_ITS | Encounter Summary ---
Author Organization [employer] Address [address] [facility] 7t [place] [address] Care Team Providers Care Diploma Dental Assistant Name Role Phone Dariela Zapata MD Primary Care Provide r Reason for Visit * Reason Comments Med Refill Encounter Details Date Type Department Care Team ([facility] st Contact Info) Description 01/15/2024 Refill [facility] [address] [place], [place] [phone] Dariela Zapata MD [address] [place] [phone] Pain; Crohn's disease with complication, unspecified gastrointestinal tract location (CMS/HCC) Social History Tobacco Use Types Packs/Day Years Used Date Smoking Tobacco: Never Assessed Housing Stability Answer Date Recorded What is your housing situation today? I do not have housing (Staying with others, in a hotel, in a residential, living outside on the street, on a [...] encounter Visit Diagnoses Diagnosis Pain Generalized pain Crohn's disease with complication, unspecified gastrointestinal tract location (CMS/HCC) documented in this encounter Care Teams Diploma Dental Assistant Relationship Specialty Start Date End Date Dariela Zapata MD [address] [place] [phone] PCP - General Family Medicine 10/14/19 documented as of this encounter
== END 2025-07-30 14:38 | disposition home or self-care (01) ==
PROVIDERS: Physician Assistant Medical; Emergency Provider Emergency Medicine; PCP General Practice
DX: K62.89 Other specified diseases of anus and rectum (principal); Z79.899 Other long term (current) drug therapy
CPT/HCPCS: 36415; 80053; 85025; 85652; 86140; 99283

== ENCOUNTER 2025-08-04 13:42 | Outpatient (REF) | payer MEDICAID, SELFPAY ==
[2025-08-04 15:51] LABS: MANUAL DIFF FLAG NO
[2025-08-04 16:33] LABS: Hematocrit 34.2 % (42.0-52.0); Hemoglobin 10.8 g/dl (14.0-18.0); Imm Gran Abs Auto 0.03 X10*3/uL (0.00-0.03); Imm Gran Pct Auto 0.4 % (0.0-0.4); Lymphocytes Absolute Auto 1.5 X10*3/uL (1.2-4.9); Mean Corpuscular HGB Conc 31.6 g/dl (31.0-36.0); Mean Corpuscular Hemoglobin 29.4 pg (27.0-33.0); Mean Corpuscular Volume 93.2 fL (80.0-98.0); NRBC Abs Auto 0.000 X10*3/uL (0.0-0.012); NRBC Pct Auto 0.0 /100WBC (0.0-0.2); Platelet Count 278 X10*3/uL (160-400); Red Blood Count 3.67 X10*6/uL (4.60-5.80); White Blood Count 8.4 X10*3/uL (4.8-10.8)
[2025-08-04 17:03] LABS: Alanine Aminotransferase 15 U/L (0-40); Albumin Level 4.1 g/dL (3.5-5.0); Alkaline Phosphatase 67 U/L (39-117); Anion Gap 14 (12-20); Aspartate Amino Transferase 32 U/L (5-37); Blood Urea Nitrogen 16 mg/dL (9-16); Calcium 9.4 mg/dL (8.4-10.2); Carbon Dioxide 28 mmol/L (22-29); Chloride 102 mmol/L (96-108); Estimated Glomerular Filt Rate 40; Potassium 4.8 mmol/L (3.3-5.1); Sodium 139 mmol/L (135-145); Total Protein 8.7 g/dL (6.5-8.0)
== END 2025-08-04 13:43 | disposition home or self-care (01) ==
LOC: HO.LAB 13:42
PROVIDERS: PCP General Practice; Visit Provider Internal Medicine Gastroenterology
DX: K50.10 Crohn's disease of large intestine without complications (principal); K75.81 Nonalcoholic steatohepatitis (NASH)
CPT/HCPCS: 36415; 80053; 85025; 86140; 99212

== ENCOUNTER 2025-08-04 13:42 | Outpatient (AMB) | payer MEDICAID, SELFPAY ==
--- NOTE | 2025-08-04 13:43 | MHC.OFFVIS ---
Vital Signs 08/04/25 13:44 Height 5 ft 9 in Weight 240 lb 4.862 oz BMI 35.5 BP 183/96 H Blood Pressure Location Lt brachial Position Sitting Pulse 88 Intake Visit Reasons: crohns Intake Note: Jayden presents in the office as a follow up for crohns. CC: Pains in the rectum and states when he wipes he has blood. No constipation or diarrhea. Salesperson Hosiery Required: Yes Allergies Iodinated Contrast Media (IV CONTRAST) Allergy (Intermediate, Verified 08/04/25 13:45) HIVES prednisone (PREDNISONE) Allergy (Mild, Verified 08/04/25 13:45) RASH HPI HPI crohns: Details: 60 yr old m here for f/u RECAP: I last saw him 07/2021 He had been having numerous diarrheal stools for 1-2 weeks associated with RLQ discomfort and cramps. Blood noted on wiping, but not in the toilet. He was on asacol for his crohns disease He was given Rocephin, Flagyl, IV fluid and pain medicine and his sx improved with in patient treatment Abdominal CT reported by radiologist as showing colitis to the remaining sigmoid colon without any abscess or fluid collection. Colonoscopy: 01/2020 appeared to have a pouch without any sigmoid colon a s noted in the CT scan, the bx of small bowel were normal, as were the pouch. There did appear to be inflammation around ileo anal area but bx were ok. I gave him cipro at the time and anti fungal cream due to maceration of anal skin due to diarrhea. He had repeat admission for diarrhea and treated for pouchitis 06/2021--with Ct revealing mild bowel wall thickening and stranding in pelvis. He went to Ed again for abdo pain and nausea and was givne ABx again He was admitted with suspected SBO vs pouchitis 04/2023 and had pouchoscopy done by Dr Lazcano with possible fistula noted and tight J pouch needed dilation --Bx revealed chronic ileocolitis INTERIM: he has been on entyvio for some time over last 1 week he noted pain with defecation feels raw inside he feels like entyvio hasnt really been working and has a lot of diarrhea no fevers EXAM: GENERAL: The patient is well developed and nontoxic. VITAL SIGNS:see workflow HEENT: Nonicteric sclerae, PERRLA, EOMI. Oropharynx clear. Moist mucous membranes. Conjunctivae appear well perfused. No thyroid mass. CHEST: Chest wall is nontender. HEART: Regular rate and rhythm without murmurs. LUNGS: Clear to auscultation bilaterally. ABDOMEN: Soft, positive bowel sounds, nontender, no organomegaly.no flank tenderness SKIN: No rash, no excessive bruising, petechiae, or purpura. anal area: indurated, tender and boggy skin --tender, some d/c NEUROLOGIC: Cranial nerves II-XII intact without motor/sensory deficit. Psych: nml A/P: 1/ Recurrent pouchitis, recent path consistent with crohns--on entyvio--seemed to have been doing better now saying sx are worse 2/ Anal pain, induration and tenderness, bogginess PLAN: 1/ recheck labs incl stool tests 2/ augmentin with calmoseptin 3/ pouchoscopy 4/ refer surgery for eval [facility] Medical History Clostridium difficile carrier Opioid use disorder Constipation Crohn's disease of both small and large intestine CKD (chronic kidney disease) Ulcerative colitis HLD (hyperlipidemia) Colitis HTN (hypertension) Surgical History History of esophagogastroduodenoscopy (EGD) Hx of colonoscopy H/O total colectomy H/O cervical spine surgery History of colostomy reversal Family History Mother Stroke Diabetes mellitus HTN (hypertension), benign Hyperlipidemia Brother Diabetes mellitus Social History Household Members: None Housing: Apartment Housing Other:: Rents a room Do you presently have visiting nurse or other home services: No Alcohol intake: current Alcohol intake frequency: does not drink Comment: Chirag Patient Tobacco Use Status: Never used Tobacco e-Cigarette/Vaping Use: Never Used Second Hand Smoke Exposure: No Substance Use Type: Heroin Advance Directives Date on File: 03/08/21 service: No Current occupational status: unemployed Physical Exam Vital Signs: Last Vital Signs Pulse 88 08/04/25 13:44 BP 183/96 H 08/04/25 13:44 BMI result Body Mass Index 35.5 Assessment & Plan Assessment & Plan (1) Crohn's colitis: Code(s): K50.10 - Crohn's disease of large intestine without complications Category: Medical Plan: as above Orders: Orders C Reactive Protein Today K50.10 - Crohn's disease of large intestine without complications Complete Blood Count Auto Diff Today K50.10 - Crohn's disease of large intestine without complications Comprehensive Met. Panel Today K50.10 - Crohn's disease of large intestine without complications, K75.81 - Nonalcoholic steatohepatitis (WEST) CDiff Gene PCR Today K50.10 - Crohn's disease of large intestine without complications, R19.7 - Diarrhea, unspecified Lactoferrin, Fecal, Quant. Today K50.10 - Crohn's disease of large intestine without complications, K51.50 - Left sided colitis without complications GI Panel Today K50.10 - Crohn's disease of large intestine without complications, R19.7 - Diarrhea, unspecified Medications: New amoxicillin-pot clavulanate 500-125 mg (Augmentin) 1 tab PO TID 21 tabs 0RF amoxicillin-pot clavulanate 500-125 mg (Augmentin) 1 tab PO TID 21 tabs 0RF miscellaneous medical supply As directed 1 ea 0RF menthol-zinc oxide 0.44-20.6 % (Calmoseptine) 1 appl topical QID PRN 113 grams 0RF skin irritation Coding Level of Care Code Est Pt Level 4 (10329) Diagnoses Crohn's colitis K50.10
[2025-08-04 13:44] VITALS: BP 183/96; PULSE 88; BMI 35.5
--- OUTSIDE RECORDS SUMMARY | 2025-08-04 16:10 | XMS_ITS ---
Encounter Summary Created on: August 04, 2025 Jayden Pierce : 1965
--- OUTSIDE RECORDS SUMMARY | 2025-08-04 16:10 | XMS_ITS | Clinical Summary ---
Demographics Address [address] [place] [address] Mobile Phone Home Phone
== END 2025-08-04 15:02 | disposition home or self-care (01) ==
LOC: HO.HGI 13:42
PROVIDERS: PCP General Practice; Visit Provider Internal Medicine Gastroenterology
DX: K50.10 Crohn's disease of large intestine without complications (principal)
CPT/HCPCS: 99214

== ENCOUNTER 2025-08-05 12:02 | Outpatient (REF) | payer MEDICAID, SELFPAY ==
[2025-08-05 13:50] LABS: CDiff Gene PCR NEGATIVE (Negative)
[2025-08-05 14:19] LABS: E. coli EAEC Detected (Not Detect.); E. coli EPEC Not Detected (Not Detect.); E. coli ETEC Not Detected (Not Detect.); E. coli STEC Not Detected (Not Detect.); Shigella sp./EIEC Not Detected (Not Detect.)
--- OUTSIDE RECORDS SUMMARY | 2025-08-05 14:59 | XMS_ITS | Encounter Summary ---
Author Organization [employer] Address [address] [facility] 7t [place] [address] Care Team Providers Care Coffee Host Name Role Phone Dariela Zapata MD Primary Care Provide r Sharon Lyon RN Unavailable [phone] Amelia [place] Unavailable Reason for Visit * Reason Comments Care Coordination CM/CHW outreach Encounter Details Date Type Department Care Team (Latest Contact Info) Description 07/31/2025 Patient Outreach [facility] MEDICINE [address] [place] [address] Dariela Zapata MD [address] [place] [address] Care Coordination (CM/CHW outreach) Social History Tobacco Use Types Packs/Day Years [...] AM EDT documented as of this encounter Progress Notes * Amelia [place] - 07/31/2025 2:12 PM EDT CHW Amelia [place], placed outbound call to patient introducing herself from [facility] CM Department, in regards to offering services. Patient's name and was confirmed. Patient agreesto participate in program. Appt. for initial assessment scheduled for 08/13/25 @ 10AM tele with DILLON Lyon RN. CHW reinforced direct contact information or forany additional questions or concerns and extended clinic hours on Mondays and Wednesdays, and Walk-In Urgent Care Located in [facility] [place] of [facility]. Patient provided with after-hours line for [facility], , which offer night time triage service and option to transfer to filtration plant mechanic provider if needed. Patient verbalizes understanding, and able to repeat back to database report writer. documented in this encounter Plan of Treatment Not on file documented as of this encounter Visit Diagnoses Not on filedocumented in this encounter Additional Health Concerns Assessment Noted Time PHQ-9 Depression Total Score: 6 07/15/20 25 9:19 AM EDT documented as of this encounter Care Teams Coffee Host Relationship Specialty Start Date End Date Dariela Zapata MD [address] [place] [address] PCP - General Family Medicine 10/14/19 Sharon Lyon RN [address] [place] [address] Registered Nurse Family Medicine 07/31/25 Amelia [place] 07/31/25 documented as of this encounter
--- OUTSIDE RECORDS SUMMARY | 2025-08-05 14:59 | XMS_ITS | Encounter Summary ---
Author Organization [employer] Address [address] [facility] 7t [place] [address] Care Team Providers Care Fiscal Analyst Name Role Phone Dariela Zapata MD Primary Care Provide r Sharon Lyon RN Unavailable [phone] Amelia [place] Unavailable Reason for Visit * Reason Onset Date Comments mail appt slip 03/11/2025 Encounter Details Date Type Department Care Team (Late st Contact Info) Description 03/11/2025 Telephone [facility] [address] [place] [address] Leroy Joel DDS [address] [place] [address] mail appt slip Social History Tobacco Use [...] documented as of this encounter Care Teams Fiscal Analyst Relationship Specialty Start Date End Date Dariela Zapata MD [address] [place] [address] PCP - General Family Medicine 10/14/19 Sharon Lyon RN [address] [place] [address] Registered Nurse Family Medicine 07/31/25 Amelia [place] 07/31/25 documented as of this encounter
--- OUTSIDE RECORDS SUMMARY | 2025-08-05 14:59 | XMS_ITS | Clinical Summary ---
Author Organization [employer] [facility] ity Address [address] [place] [address] Care Team Providers Care Cementer Hand Name Role Phone Unavailable Primary Care Provider Unavailabl e Social History Tobacco Use Types Packs/Day Years Used Date Smoking Tobacco: Never Assessed Sex and Gender Information Value Date Recorded Sex Assigned at Not on file Legal Sex Male 9:04 AM EST Gender Identity Not on file Sexual Orientation Not on file Plan of Treatment Health Maintenance Due Date Last Done Comments DTaP,Tdap,and Td Vaccines (1 - Tdap) 02/27/1984 Pneumococcal Vaccine: 50+ Ye ars (1 of 1 - PCV) 2015 Zoster Vaccines (1 of 2) 2015 Depression Screening 11/13/2024 COVID-19 Vaccine (1 - 2023-2 5 season) 2025 Influenza Vaccine (#1) 2025 RSV Immunization Adult Patie nts (1 - 1-dose 75+ series) 02/27/2040 HIB Vaccines Aged Out No longer eligi ble based on patient's age to complete this topic HPV Vaccines Aged Out No longer eligi ble based on patient's age to complete this topic Hepatitis A Vaccines Aged Out No long er eligible based on patient's age to complete this topic Hepatitis B Vaccines Aged Out No long er eligible based on patient's age to complete this topic IPV Vaccines Aged Out No longer eligi ble based on patient's age to complete this topic MMR Vaccines Aged Out No longer eligi ble based on patient's age to complete this topic Meningococcal ACWY Vaccine Aged Out N o longer eligible based on patient's age to complete this topic Meningococcal B Vaccine Aged Out No l onger eligible based on patient's age to complete this topic RSV Immunization Patients Un milton 20 months Aged Out No longer eligible b ased on patient's age to complete this topic Varicella Vaccines Aged Out No longer eligible based on patient's age to complete this topic
--- OUTSIDE RECORDS SUMMARY | 2025-08-05 14:59 | XMS_ITS | Encounter Summary ---
Author Organization [employer] Address [address] [facility] [address] 7t [place] [address] Care Team Providers Care Forest Officer Name Role Phone Dariela Zapata MD Primary Care Provide r Sharon Lyon RN Unavailable [phone] Amelia [place] Unavailable Encounter Details Date Type Department Care Team ([facility] st Contact Info) Description 09/16/2024 Orders Only [facility] [address] [place] [address] Dariela Zapata MD [address] [place] [address] Social History Tobacco Use Types Packs/Day Years [...] AM EST Narrative 09/24/2024 10:47 AM EST [place] [address] XRay Report Signed Patient: Jayden Pierce MR#: [id number] : 1965 Acct:[id number] Age/Sex: 59 / M ADM Date: 09/24/24 Loc: HO.ED Attending Dr: Ordering Physician: Generic ED Physician Date of Service: 09/24/24 Procedure(s): XR chest 1V Accession Number(s): [id number] cc: Dariela Zapata MD; Generic ED Physician [...] 09/24/24 1044 DD/ 1028 TD/TT: 09/24/24 1030 Compensation Agent: Procedure Note Donotuseinterpreter, Image - 09/24/2024 [place] [address] XRay Report Signed Patient: Luisa Pierce#: [id number] : 1965Acct:[id number] Age/Sex: 59 / MADM Date: 09/24/24 Loc: HO.ED Attending Dr: Ordering Physician: Generic ED Physician Date of Service: 09/24/24 Procedure(s): XR chest 1V Accession Number(s): [id number] cc: Dariela Zapata MD; Generic ED Physician [...] 09/24/24 1044 DD/ 1028 TD/TT: 09/24/24 1030 Compensation Agent: [facility] External Provider IMG XR PROCEDURES Final Result * SARS-CoV-2 RNA, Influenza A/B, and RSV RNA, Ql NAAT (09/24/2024 10:25 AM EST) Influenza A PCR NEGATIVE Negative [facility] Influenza B PCR NEGATIVE Negative [facility] Resp Syncy Virus RNA Qual PCR NEGATIVE Negative [facility] SARS COV2 PCR NEGATIVE Negative [facility] Comment:All test results mus t [...] use by authorized laboratories.Testing performed on the [employer] GeneXpert utilizingreal-time RT-PCR.All SARS CoV2 and positive influenza A/B results arereported to [facility]. 09/24/2024 10:2 5 AM EST 09/24/2024 10:28 AM EST us Generic External Data Provider LAB MICROBIOLOGY - GENERAL ORDERABLES Final Result [facility] [address] [place] [address] [phone] documented in this encounter Visit Diagnoses Not on filedocumented in this encounter Additional Health Concerns Assessment Noted Time PHQ-9 Depression Total Score: 0 03/25/20 24 2:34 PM EDT documented as of this encounter Care Teams Forest Officer Relationship Specialty Start Date End Date Dariela Zapata MD [address] [place] [address] PCP - General Family Medicine 10/14/19 Sharon Lyon, NEGRO [address] [place] [address] Registered Nurse Family Medicine 07/31/25 Amelia [place] 07/31/25 documented as of this encounter
--- OUTSIDE RECORDS SUMMARY | 2025-08-05 14:59 | XMS_ITS | Encounter Summary ---
Author Organization [employer] Address [address] [facility] 7t [place] [address] Care Team Providers Care Hop Sorter Name Role Phone Dariela Zapata MD Primary Care Provide r Sharon Lyon RN Unavailable [phone] Amelia [place] Unavailable Reason for Visit * Reason Comments Med Refill Encounter Details Date Type Department Care Team (Late st Contact Info) Description 11/10/2024 Refill [facility] MED[facility] [address] [place] [address] Dariela Zapata MD [address] [place], [place] [phone] Insomnia, unspecified type Social History Tobacco Use [...] documented as of this encounter Care Teams Hop Sorter Relationship Specialty Start Date End Date Dariela Zapata MD [address] [place] [address] PCP - General Family Medicine 10/14/19 Sharon Lyon, NEGRO [address] [place] [address] Registered Nurse Family Medicine 07/31/25 Amelia [place] 07/31/25 documented as of this encounter
--- OUTSIDE RECORDS SUMMARY | 2025-08-05 14:59 | XMS_ITS | Encounter Summary ---
Author Organization [employer] Address [address] [place] [address] 7t [place] [address] Care Team Providers Care Justice Professor Name Role Phone Dariela Zapata MD Primary Care Provide r Sharon Lyon RN Unavailable [phone] Amelia [place] Unavailable Encounter Details Date Type Department Care Team (Late st Contact Info) Description 02/28/2023 Orders Only [facility] [address] [place] [address] Celena Cannon LPN Social History Tobacco Use [...] on filedocumented in this encounter Care Teams Justice Professor Relationship Specialty Start Date End Date Dariela Zapata MD [address] [place] [address] PCP - General Family Medicine 10/14/19 Sahron Lyon RN [address] [place] [address] Registered Nurse Family Medicine 07/31/25 Amelia [place] 07/31/25 documented as of this encounter
--- OUTSIDE RECORDS SUMMARY | 2025-08-05 14:59 | XMS_ITS ---
Author Organization [employer] Address [address] [facility] 7t [place] [address] Care Team Providers Care Parking Enforcer Name Role Phone Dariela Zapata MD Primary Care Provide r Sharon Lyon RN Unavailable [phone] Amelia [place] Unavailable CM Complex Status:Outreach In Progress (Enrolling) Start date:07/31/2025 Enrollment reason:ADT Feed Overview ED- Pt went to [facility] ED on 07/30/25. Case Team Name Relationship Phone Sharon Lyon RN(Responsible Staff) Registered Nurse [phone] Continued Care and Services Coordination
--- OUTSIDE RECORDS SUMMARY | 2025-08-05 14:59 | XMS_ITS | Encounter Summary ---
Author Organization [employer] Address [address] [facility] 7t [place] [address] Care Team Providers Care Rn Clinical Documentation Name Role Phone Dariela Zapata MD Primary Care Provide r Sharon Lyon RN Unavailable [phone] Amelia [place] Unavailable Reason for Visit * Reason Onset Date Comments Durable Medical Equipment 07/04/2025 Encounter Details Date Type Department Care Team (Late st Contact Info) Description 07/04/2025 Telephone [facility] MED[facility]INE [address] [place] [address] Dariela Zapata MD [address] [place], [place] [phone] Durable Medical Equipment Social History Tobacco Use [...] when hehas to go Contact pt at [phone] (romansh) documented in this encounter Plan of Treatment Not on file documented as of this encounter Visit Diagnoses Not on filedocumented in this encounter Additional Health Concerns Assessment Noted Time PHQ-9 Depression Total Score: 0 03/25/20 24 2:34 PM EDT documented as of this encounter Care Teams Rn Clinical Documentation Relationship Specialty Start Date End Date Dariela Zapata MD [address] [place] [address] PCP - General Family Medicine 10/14/19 Sharon Lyon RN [address] [place] [address] Registered Nurse Family Medicine 07/31/25 Amelia [place] 07/31/25 documented as of this encounter
--- OUTSIDE RECORDS SUMMARY | 2025-08-05 14:59 | XMS_ITS | Encounter Summary ---
Author Organization [employer] Address [address] [facility] 7t [place] [address] Care Team Providers Care Primer Supervisor Name Role Phone Dariela Zapata MD Primary Care Provide r Sharon Lyon RN Unavailable [phone] Amelia [place] Unavailable Encounter Details Date Type Department Care Team ([facility] Contact Info) Description 07/31/2025 Patient Outreach [facility] MED[facility]INE [address] [place] [address] Dariela Zapata MD [address] [place] [address] Social History Tobacco Use Types Packs/Day Years [...] documented as of this encounter Care Teams Primer Supervisor Relationship Specialty Start Date End Date Dariela Zapata MD [address] [place] [address] PCP - General Family Medicine 10/14/19 Sharon Lyon RN [address] [place] [address] Registered Nurse Family Medicine 07/31/25 Amelia [place] 07/31/25 documented as of this encounter
--- OUTSIDE RECORDS SUMMARY | 2025-08-05 14:59 | XMS_ITS | Encounter Summary ---
Author Organization [employer] Address [address] [facility] 7t [place] [address] Care Team Providers Care Orthopedic Rn Name Role Phone Dariela Zapata MD Primary Care Provide r Sharon Lyon RN Unavailable [phone] Amelia [place] Unavailable Reason for Visit * Reason Onset Date Comments Med Refill 01/22/2024 Encounter Details Date Type Department Care Team (Late st Contact Info) Description 01/22/2024 Telephone [facility] MEDICINE [address] [place] [address] Dariela Zapata MD [address] [place], [place] [phone] Med Refill Social History Tobacco Use Types Packs/Day Years Used Date Smoking Tobacco: Never Assessed Housing Stability Answer Date Recorded What is your housing situation today? I do not have housing (Staying with others, in a hotel, in a correction, living outside on the street, on a [...] 10 MG tablet To be sent to: [facility] - [place], [place] - [address] [place] [address] documented in this encounter Plan of Treatment Not on file documented as of this encounter Visit Diagnoses Not on filedocumented in this encounter Care Teams Orthopedic Rn Relationship Specialty Start Date End Date Dariela Zapata MD [address] [place] [address] PCP - General Family Medicine 10/14/19 Sharon Lyon, NEGRO [address] [place] [address] Registered Nurse Family Medicine 07/31/25 Amelia [place] 07/31/25 documented as of this encounter
--- OUTSIDE RECORDS SUMMARY | 2025-08-05 14:59 | XMS_ITS | Encounter Summary ---
Author Organization [employer] Address [address] [facility] 7t [place] [address] Care Team Providers Care Or Manager Name Role Phone Dariela Zapata MD Primary Care Provide r Sharon Lyon RN Unavailable [phone] Amelia [place] Unavailable Reason for Visit * Reason Comments Med Refill Encounter Details Date Type Department Care Team (Late st Contact Info) Description 01/17/2024 Refill [facility] MED[facility] [address] [place] [address] Dariela Zapata MD [address] [place], [place] [phone] Low back pain at multiple sites; Pain; Crohn's disease with complication, unspecified gastrointestinal tract location (CMS/HCC); Insomnia, unspecified type Social History Tobacco Use Types Packs/Day Years Used Date Smoking Tobacco: Never Assessed Housing Stability Answer Date Recorded What is your housing situation today? I do not have housing (Staying with others, in a hotel, in a assisted, living outside on the street, on a [...] type documented in this encounter Care Teams Or Manager Relationship Specialty Start Date End Date Dariela Zapata MD [address] [place] [address] PCP - General Family Medicine 10/14/19 Sharon Lyon RN [address] [place] [address] Registered Nurse Family Medicine 07/31/25 Amelia [place] 07/31/25 documented as of this encounter
--- OUTSIDE RECORDS SUMMARY | 2025-08-05 14:59 | XMS_ITS | Encounter Summary ---
Author Organization [employer] Address [address] [facility] 7t [place] [address] Care Team Providers Care Baseball Club Manager Name Role Phone Dariela Zapata MD Primary Care Provide r Sharon Lyon RN Unavailable [phone] Amelia [place] Unavailable Reason for Visit * Reason Comments Care Management C3- chart review Encounter Details Date Type Department Care Team ([facility] st Contact Info) Description 07/31/2025 Patient Outreach [facility] [address] [place] [address] Dariela Zapata MD [address] [place] [address] Care Management (C3CM- chart review) Social History Tobacco Use Types Packs/Day Years [...] as of this encounter Progress Notes * Sharon Lyon RN - 07/31/2025 12:05 PM EDT DILLON Lyon RN, performed chart review, in anticipation of initial assessment with patient, as patient has stratified for C3 Adult Complex Care through the ADT feed. History significant for blurring of visual image, colitis, crohn's disease, constipation, hordeolum externum of upper eyelid, HTN, opioid dependence, CKD, IBD, cervicalgia, small bowel obstruction, pouchitis, C.diff carrier, dental attrition extending into pulp, perianal fistula due to crohn's disease, fecal incontinence, andlow back pain at multiple sites. Specialists include General Surgery, [facility] GI, Nephrology, and [facility] Dental. ED visits within the last 12 months include [facility] ED 07/30/25 Dx anal irritation. Last appointment in PCP office on 07/15/25. No future appointments scheduled at this time. documented in this encounter Plan of Treatment Not on file documented as of this encounter Visit Diagnoses Not on filedocumented in this encounter Additional Health Concerns Assessment Noted Time PHQ-9 Depression Total Score: 6 07/15/20 9:19 AM EDT documented as of this encounter Care Teams Baseball Club Manager Relationship Specialty Start Date End Date Dariela Zapata MD [address] [place] [address] PCP - General Family Medicine 10/14/19 Sharon Lyon RN [address] [place] [address] Registered Nurse Family Medicine 07/31/25 Amelia [place] 07/31/25 documented as of this encounter
--- OUTSIDE RECORDS SUMMARY | 2025-08-05 14:59 | XMS_ITS | Encounter Summary ---
Author Organization [employer] Address 75 [facility] 7t [place] [address] Care Team Providers Care Television Servicer Name Role Phone Dariela Zapata MD Primary Care Provide r [place] Lyon RN Unavailable [phone] Amelia Houston Unavailable Encounter Details Date Type Department Care Team (Late st Contact Info) Description 01/14/2025 Orders Only [facility] MEDICINE 230 [place] [address] Dariela Zapata MD 230 [place], [place] [phone] Social History Tobacco Use Types Packs/Day Years [...] documented as of this encounter Care Teams Television Servicer Relationship Specialty Start Date End Date Dariela Zapata MD 230 [place] [address] PCP - General Family Medicine 10/14/19 [place] Lyon RN [address] [place] [address] Registered Nurse Family Medicine 07/31/25 Amelia Houston 07/31/25 documented as of this encounter
--- OUTSIDE RECORDS SUMMARY | 2025-08-05 14:59 | XMS_ITS | Encounter Summary ---
Author Organization [employer] Address [address] [place] [address] 7t [place] [address] Care Team Providers Care Nipple Threader Name Role Phone Dariela Zapata MD Primary Care Provide r [place] Lyon RN Unavailable [phone] Amelia Houston Unavailable Reason for Visit * Reason Comments Med Refill Encounter Details Date Type Department Care Team (Late st Contact Info) Description 06/08/2023 Refill [facility] MEDICINE 230 [place] [address] Dariela Zapata MD 230 [place] [address] Insomnia, unspecified type Social History Tobacco Use [...] type documented in this encounter Care Teams Nipple Threader Relationship Specialty Start Date End Date Dariela Zapata MD 230 [place] [address] PCP - General Family Medicine 10/14/19 [place] Lyon RN [address] [place] [address] Registered Nurse Family Medicine 07/31/25 Amelia Houston 07/31/25 documented as of this encounter
--- OUTSIDE RECORDS SUMMARY | 2025-08-05 14:59 | XMS_ITS | Encounter Summary ---
Author Organization [employer] Address 75 [facility] 7t [place] [address] Care Team Providers Care Enroute Controller Name Role Phone Dariela Zapata MD Primary Care Provide r [place] Lyon RN Unavailable [phone] Amelia Houston Unavailable Encounter Details Date Type Department Care Team (Late st Contact Info) Description 07/24/2023 Orders Only [facility] MEDICINE 230 [place] [address] Provider, Rajiv, Social History Tobacco Use Types [...] 10/26/2016 documented in this encounter Results * Colonoscopy (10/26/2016) Historical Provider HEALTH MAINTENANCE Final Result documented in this encounter Visit Diagnoses Not on filedocumented in this encounter Care Teams Enroute Controller Relationship Specialty Start Date End Date Dariela Zapata MD 230 [place] [address] PCP - General Family Medicine 10/14/19 [place] Lyon RN [address] [place] [address] Registered Nurse Family Medicine 07/31/25 Amelia Houston 07/31/25 documented as of this encounter
--- OUTSIDE RECORDS SUMMARY | 2025-08-05 14:59 | XMS_ITS | Encounter Summary ---
Author Organization [employer] Address 75 [facility] 7t [place] [address] Care Team Providers Care Garden Consultant Name Role Phone Dariela Zapata MD Primary Care Provide r [place] Lyon RN Unavailable [phone] Amelia Houston Unavailable Reason for Visit * Reason Comments Care Coordination CHW chart review Encounter Details Date Type Department Care Team (Latest Contact Info) Description 07/31/2025 Patient Outreach [facility] MEDICINE 230 [place] [address] Dariela Zapata MD 230 [place] [address] Care Coordination (CHW chart review) Social History Tobacco Use Types [...] Progress Notes * Amelia [place] - 07/31/2025 1:05 PM EDT CM/C3 BEVW Amelia [place] chart review CHW Amelia [place] reviewed chart review completed by DILLON Lyon RN, performed chart review, in [...] at multiple sites. Specialists include General Surgery, [facility], Nephrology, and [facility] Dental. ED visits within the last 12 months include [facility] 07/30/25 Dx anal irritation. Last appointment [...] documented as of this encounter Care Teams Garden Consultant Relationship Specialty Start Date End Date Dariela Zapata MD 230 [place] [address] PCP - General Family Medicine 10/14/19 [place] Lyon RN [address] [place] [address] Registered Nurse Family Medicine 07/31/25 Amelia Houston 07/31/25 documented as of this encounter
--- OUTSIDE RECORDS SUMMARY | 2025-08-05 14:59 | XMS_ITS ---
Author Organization [employer] Address 75 [facility] 7t [place] [address] Care Team Providers Care Mergers And Acquisitions Manager Name Role Phone Dariela Zapata MD Primary Care Provide r [place] Lyno RN Unavailable [phone] Amelia Houston Unavailable CHW Complex Status:Outreach In Progress (Enrolling) Start date:07/31/2025 Enrollment reason:ADT Feed Overview ED- Pt went to [facility] ED on 07/30/25. Please outreach for enrollment. Case Team Name Relationship Phone Amelia [place](Responsible Staff) [phone] Continued Care and Services Coordination
--- OUTSIDE RECORDS SUMMARY | 2025-08-05 14:59 | XMS_ITS | Encounter Summary ---
Author Organization [employer] Address 75 [facility] 7t [place] [address] Care Team Providers Care Steam Powerplant Supervisor Name Role Phone Dariela Zapata MD Primary Care Provide r [place] Lyon RN Unavailable [phone] Amelia Houston Unavailable Reason for Visit * Reason Comments Med Refill Encounter Details Date Type Department Care Team (Late st Contact Info) Description 01/08/2024 Refill [facility] MEDICINE 230 [place] [address] Dariela Zapata MD 230 [place], [place] [phone] Low back pain at multiple sites Social History Tobacco Use Types Packs/Day Years Used Date Smoking Tobacco: Never Assessed Housing Stability Answer Date Recorded What is your housing situation today? I do not have housing (Staying with others, in a hotel, in a chcf, living outside on the street, on a [...] sites documented in this encounter Care Teams Steam Powerplant Supervisor Relationship Specialty Start Date End Date Dariela Zapata MD 230 [place] [address] PCP - General Family Medicine 10/14/19 [place] Lyon RN [address] [place] [address] Registered Nurse Family Medicine 07/31/25 Amelia Houston 07/31/25 documented as of this encounter
--- OUTSIDE RECORDS SUMMARY | 2025-08-05 14:59 | XMS_ITS | Encounter Summary ---
Author Organization [employer] Address 75 [facility] 7t [place] [address] Care Team Providers Care Family Psychologist Name Role Phone Dariela Zapata MD Primary Care Provide r [place] Lyon RN Unavailable [phone] Amelia Houston Unavailable Reason for Referral * Imaging (Routine) - Closed Specialty Diagnoses / Procedures Referred By Contac t Referred To Contact Radiology Diagnoses Abnormal CXR Procedures CT Chest w/o Contrast Rayne Fierro MD 230 [place] [address] Phone: tel: fax: [address] Phone: tel: fax: Referral ID Status Reason Start Date Expiration Date Visits Re quested Visits Authorized [id number] Closed 10/18/2024 10/18/2025 1 1 Encounter Details Date Type Department Care Team (Late st Contact Info) Description 10/18/2024 Orders Only [facility] MEDICINE 230 [place], [place] [phone] Rayne Fierro MD [address] [place] [address] [phone] Abnormal CXR (Primary Dx) Social History Tobacco [...] documented as of this encounter Care Teams Family Psychologist Relationship Specialty Start Date End Date Dariela Zapata MD [address] [place] [address] PCP - General Family Medicine 10/14/19 [place] Lyon RN [address] [place] [address] Registered Nurse Family Medicine 07/31/25 Amelia Houston 07/31/25 documented as of this encounter
--- OUTSIDE RECORDS SUMMARY | 2025-08-05 14:59 | XMS_ITS | Encounter Summary ---
Author Organization [employer] Address 75 [facility] 7t [place] [address] Care Team Providers Care Manager Division Name Role Phone Dariela Zapata MD Primary Care Provide r [place] Lyon RN Unavailable [phone] Amelia Houston Unavailable Reason for Visit * Reason Comments Med Refill Encounter Details Date Type Department Care Team (Late st Contact Info) Description 11/09/2024 Refill [facility] MEDICINE 230 [place] [address] Dariela Zapata MD 230 [place], [place] [phone] Pain Social History Tobacco Use Types Packs/Day [...] as of this encounter Care Teams Manager Division Relationship Specialty Start Date End Date Dariela Zapata MD 230 [place] [address] PCP - General Family Medicine 10/14/19 [place] Lyon RN 505 [place] [address] Registered Nurse Family Medicine 07/31/25 Amelia Houston 07/31/25 documented as of this encounter
--- OUTSIDE RECORDS SUMMARY | 2025-08-05 14:59 | XMS_ITS | Encounter Summary ---
Author Organization [employer] Address 75 [facility] 7t [place] [address] Care Team Providers Care Digital Photographic Printer Name Role Phone Dariela Zapata MD Primary Care Provide r [place] Lyon RN Unavailable [phone] Amelia Houston Unavailable Reason for Visit * Reason Onset Date Comments Med Refill 07/23/2024 Encounter Details Date Type Department Care Team (Late st Contact Info) Description 07/23/2024 Telephone [facility] MEDICINE 230 [place] [address] Dariela Zapata MD 230 [place], [place] [phone] Med Refill Social History Tobacco Use Types [...] 5 % patch To be sent to: [facility] [place], [place] - [address] [place] [address] documented in this encounter Plan of Treatment Not on file documented as of this encounter Visit Diagnoses Not on filedocumented in this encounter Additional Health Concerns Assessment Noted Time PHQ-9 Depression Total Score: 0 03/25/20 24 2:34 PM EDT documented as of this encounter Care Teams Digital Photographic Printer Relationship Specialty Start Date End Date Dariela Zapata MD 230 [facility] [place] [address] PCP - General Family Medicine 10/14/19 [place] Lyon RN [address] [place] [address] Registered Nurse Family Medicine 07/31/25 Amelia Houston 07/31/25 documented as of this encounter
--- OUTSIDE RECORDS SUMMARY | 2025-08-05 14:59 | XMS_ITS | Encounter Summary ---
Author Organization [employer] Address 75 [facility] 7t [place] [address] Care Team Providers Care Bar Supervisor Name Role Phone Dariela Zapata MD Primary Care Provide r [place] Lyon RN Unavailable Amelia Houston Unavailable Reason for Visit * Reason Comments Med Refill Encounter Details Date Type Department Care Team (Late st Contact Info) Description 06/16/2024 Refill [facility] MEDICINE 230 [place] [address] Dariela Zapata MD 230 [place], [place] [phone] Cervicalgia Social History Tobacco Use Types Packs/Day [...] with others, in a hotel, in a care home, living outside on the street, on a [...] documented as of this encounter Care Teams Bar Supervisor Relationship Specialty Start Date End Date Dariela Zapata MD 230 [place] [address] PCP - General Family Medicine 10/14/19 [place] Lyon RN 505 [place] [address] Registered Nurse Family Medicine 07/31/25 Amelia Houston 07/31/25 documented as of this encounter
--- OUTSIDE RECORDS SUMMARY | 2025-08-05 14:59 | XMS_ITS | Encounter Summary ---
Author Organization [employer] Address 75 [facility] 7t [place] [address] Care Team Providers Care Insurance Processor Name Role Phone Dariela Zapata MD Primary Care Provide r [place] Lyon RN Unavailable [phone] Amelia Houston Unavailable Reason for Visit * Reason Comments Med Refill Encounter Details Date Type Department Care Team (Late st Contact Info) Description 01/15/2024 Refill [facility] PEDS [address] [place], [place] [phone] Dariela Zapata MD 230 [place] [address] Pain; Crohn's disease with complication, unspecified gastrointestinal tract location (CMS/HCC) Social History Tobacco Use Types Packs/Day Years Used Date Smoking Tobacco: Never Assessed Housing Stability Answer Date Recorded What is your housing situation today? I do not have housing (Staying with others, in a hotel, in a snf, living outside on the street, on a [...] (CMS/HCC) documented in this encounter Care Teams Insurance Processor Relationship Specialty Start Date End Date Dariela Zapata MD 230 [place] [address] PCP - General Family Medicine 10/14/19 [place] Lyon RN 505 [place] [address] Registered Nurse Family Medicine 07/31/25 Amelia Houston 07/31/25 documented as of this encounter
--- OUTSIDE RECORDS SUMMARY | 2025-08-05 14:59 | XMS_ITS | Encounter Summary ---
Author Organization [employer] Address 75 [facility] 7t [place] [address] Care Team Providers Care Tractor Trailer Mechanic Name Role Phone Dariela Zapata MD Primary Care Provide r [place] Lyon RN Unavailable [phone] Amelia [place] Unavailable Reason for Visit * Reason Comments Med Refill Encounter Details Date Type Department Care Team (Late st Contact Info) Description 01/11/2024 Refill [facility] MEDICINE 230 [place] [address] Dariela Zapata MD 230 [place], [place] [phone] Insomnia, unspecified type; Pain; Crohn's disease with [...] (CMS/HCC) documented in this encounter Care Teams Tractor Trailer Mechanic Relationship Specialty Start Date End Date Dariela Zapata MD 230 [place] [address] PCP - General Family Medicine 10/14/19 [place] Lyon RN 505 [place] [address] Registered Nurse Family Medicine 07/31/25 Amelia Houston 07/31/25 documented as of this encounter
--- OUTSIDE RECORDS SUMMARY | 2025-08-05 14:59 | XMS_ITS | Encounter Summary ---
Author Organization [employer] Address 75 [facility] 7t [place] [address] Care Team Providers Care Clinical Technician Name Role Phone Dariela Zapata MD Primary Care Provide r [place] Lyon RN Unavailable [phone] Amelia Houston Unavailable Reason for Visit * Reason Comments Med Refill Encounter Details Date Type Department Care Team (Late st Contact Info) Description 01/05/2024 Refill [facility] MEDICINE 230 [place] [address] Dariela Zapata MD 230 [place], [place] [phone] Low back pain at multiple sites Social History Tobacco Use Types Packs/Day Years Used Date Smoking Tobacco: Never Assessed Housing Stability Answer Date Recorded What is your housing situation today? I do not have housing (Staying with others, in a hotel, in a mcc, living outside on the street, on a [...] sites documented in this encounter Care Teams Clinical Technician Relationship Specialty Start Date End Date Dariela Zapata MD 230 [place] [address] PCP - General Family Medicine 10/14/19 [place] Lyon RN [address] [place] [address] Registered Nurse Family Medicine 07/31/25 Amelia Houston 07/31/25 documented as of this encounter
--- OUTSIDE RECORDS SUMMARY | 2025-08-05 14:59 | XMS_ITS | Encounter Summary ---
Author Organization [employer] Address [address] [place] [address] 7t [place] [address] Care Team Providers Care Assistant Athletic Trainer Name Role Phone Dariela Zapata MD Primary Care Provide r [place] Lyon RN Unavailable [phone] Amelia [place] Unavailable Reason for Visit * Reason Comments Med Refill Encounter Details Date Type Department Care Team (Late st Contact Info) Description 07/06/2023 Refill [facility] MEDICINE 230 [place] [address] Dariela Zapata MD 230 [place] [address] Insomnia, unspecified type Social History Tobacco Use [...] type documented in this encounter Care Teams Assistant Athletic Trainer Relationship Specialty Start Date End Date Dariela Zapata MD 230 [place] [address] PCP - General Family Medicine 10/14/19 [place] Lyon RN [address] [place] [address] Registered Nurse Family Medicine 07/31/25 Amelia Houston 07/31/25 documented as of this encounter
--- OUTSIDE RECORDS SUMMARY | 2025-08-05 15:00 | XMS_ITS | Encounter Summary ---
Author Organization [employer] Address 75 [facility] 7t [place] [address] Care Team Providers Care Steersman Name Role Phone Dariela Zapata MD Primary Care Provide r [place] Lyon RN Unavailable Amelia Houston Unavailable Reason for Visit * Reason Onset Date Comments Med Refill 11/21/2024 Encounter Details Date Type Department Care Team (Late st Contact Info) Description 11/21/2024 Telephone [facility] MEDICINE 230 [place] [address] Dariela Zapata MD 230 [place], [place] [phone] Med Refill Social History Tobacco Use Types [...] AM EST Gabapentin and tylenol sent to [facility] on 11/20/24. Ambien pended to PCP. * Telephone Encounter - Gretchen Phillips - 11/21/2024 8:13 AM EST TC from pt requesting medication refill. Medications needing refill :gabapentin (Neurontin) 300 MG capsule zolpidem (Ambien) 10 MG tablet acetaminophen (Tylenol 8 Hour) 650 MG ER tablet To be sent to: [facility] documented in this encounter Plan of Treatment Not on file documented as of this encounter Visit Diagnoses Not on filedocumented in this encounter Additional Health Concerns Assessment Noted Time PHQ-9 Depression Total Score: 0 03/25/20 24 2:34 PM EDT documented as of this encounter Care Teams [place] Relationship Specialty Start Date End Date Dariela Zapata MD [address] [place] [address] PCP - General Family Medicine 10/14/19 [place] Lyon, RN [address] [place] [address] [place] [address] Registered Nurse Family Medicine 07/31/25 Amelia Houston 07/31/25 documented as of this encounter
--- OUTSIDE RECORDS SUMMARY | 2025-08-05 15:00 | XMS_ITS | Encounter Summary ---
Author Organization [employer] Address 75 [facility] 7t [place] [address] Care Team Providers Care Copy Cutter Name Role Phone Dariela Zapata MD Primary Care Provide r [place] Lyon RN Unavailable Amelia Houston Unavailable Encounter Details Date Type Department Care Team ([facility] st Contact Info) Description 08/04/2025 Orders Only GENERIC EXTERNAL DATA DEPARTMENT Provider, [...] is your housing situation today? I have carlso cardona 07/07/[address] you [...] Diagnosis Comments CBC WITH AUTO DIFFERENTIAL Routine 08/04/2025 3:50 PM EDT C-REACTIVE PROTEIN Routine 08/04/2025 3: 50 PM EDT COMPREHENSIVE METABOLIC PANEL Routine 08/04/2025 3:50 PM EDT documented in this encounter Results * (ABNORMAL) C-reactive Protein (08/04/2025 3:50 PM EDT) C Reactive Protein 2.82(H) < or = 0.50 mg/dL [facility] 08/04/2025 3:50 PM EDT 08/04/2025 3:50 PM EDT us Generic External Data Provider LAB BLOOD ORDERAB LES Final Result [facility] [address] [place], [place] [phone] * (ABNORMAL) Comprehensive Metabolic Panel (08/04/2025 3:50 PM EDT) Pathologist [facility] Sodium 139 135 - 145 mmol/L [facility] Potassium 4.8 3.3 - 5.1 mmol/L [facility] Comment:Slight Hemolysis.Int erpret result with caution. Chloride 102 96 - 108 mmol/L [facility] Carbon Dioxide 28 22 - 29 mmol/L [facility] Anion Gap 14 12 - 20 [facility] Urea Nitrogen (BUN) 16 9 - 16 mg/dL [facility] Creatinine, Serum 1.76(H) 0.5 - 1.4 mg/dL [facility] Estimated Glomerular Filt Rate 40 [facility] Comment:Chronic Kidney Disea se: Estimated GFR < 60 mL/min/1.23v2Tevmrd Kidney Disease: Estimated GFR < 15 mL/min/1.73m2 Glucose 79 60 - 115 mg/dL [facility] Calcium 9.4 8.4 - 10.2 mg/dL [facility] Bilirubin, Total 0.4 0.0 - 1.0 mg/dL [facility] Aspartate Amino Transferase 32 5 - 37 U/L [facility] Comment:Slight Hemolysis.Int erpret result with caution. Alanine Aminotransferase 15 0 - 40 U/L [facility] Total Protein 8.7(H) 6.5 - 8.0 g/dL [facility] Albumin Level 4.1 3.5 - 5.0 g/dL [facility] Alkaline Phosphatase 67 39 - 117 U/L [facility] 08/04/2025 3:50 PM EDT 08/04/2025 3:50 PM EDT us Generic External Data Provider LAB BLOOD ORDERAB LES Final Result [facility] [address] [place] [phone] * (ABNORMAL) CBC auto differential (08/04/2025 3:50 PM EDT) White Blood Count 8.4 4.8 - 10.8 X10*3/uL [facility] Red Blood Count 3.67(L) 4.60 - 5.80 X10*6/uL [facility] Hemoglobin 10.8(L) 14.0 - 18.0 g/dl [facility] Hematocrit 34.2(L) 42.0 - 52.0 % [facility] Mean Corpuscular Volume 93.2 80.0 - 98.0 fL [facility] Mean Corpuscular Hemoglobin 29.4 27.0 - 33.0 pg [facility] Mean Corpuscular HGB Conc 31.6 31.0 - 36.0 g/dl [facility] Red Cell Distribution Width 14.2 11.0 - 16.0 % [facility] Platelet Count 278 160 - 400 X10*3/uL [facility] Mean Platelet Volume 9.8 9.4 - 12.4 fL [facility] Neutrophils Percent Auto 72.6 45 - 73 % [facility] Imm Gran Pct Auto 0.4 0.0 - 0.4 % [facility] Lymphocytes Percent Auto 17.6(L) 20 - 40 % [facility] Monocytes Percent Auto 7.3 2 - 11 % [facility] Eosinophils Percent Auto 1.7 0 - 4 % [facility] Basophils Percent Auto 0.4 0 - 2 % [facility] NRBC Pct Auto 0.0 0.0 - 0.2 /100WBC [facility] Neutrophils Absolute Auto 6.1 2.0 - 8.3 x10*3/uL [facility] Imm Gran Abs Auto 0.03 0.00 - 0.03 X10*3/uL [facility] Lymphocytes Absolute Auto 1.5 1.2 - 4.9 X10*3/uL [facility] Monocytes Absolute Auto 0.6 0.1 - 1.2 X10*3/uL [facility] Eosinophils Absolute Auto 0.1 0.0 - 0.4 X10*3/uL [facility] Basophils Absolute Auto 0.0 0.0 - 0.2 X10*3/uL [facility] NRBC Abs Auto 0.000 0.0 - 0.012 X10*3/uL [facility] 08/04/2025 3:50 PM EDT 08/04/2025 3:50 PM EDT us Generic External Data Provider LAB BLOOD ORDERAB LES Final Result [facility] [address] [place] [address] [phone] documented in this encounter Visit Diagnoses Not on filedocumented in this encounter Additional Health Concerns Assessment Noted Time PHQ-9 Depression Total Score: 6 07/15/20 25 9:19 AM EDT documented as of this encounter Care Teams Copy Cutter Relationship Specialty Start Date End Date Dariela Zapata MD 230 [place] [address] PCP - General Family Medicine 10/14/19 [place] Lyon RN [address] [place] [address] Registered Nurse Family Medicine 07/31/25 Amelia [place] 07/31/25 documented as of this encounter
--- OUTSIDE RECORDS SUMMARY | 2025-08-05 15:00 | XMS_ITS | Encounter Summary ---
Author Organization [employer] Address [address] [place] [address] Care Team Providers Care Machine Scallop Cutter Name Role Phone Dariela Zapata MD Primary Care Provide r Sharon Lyon RN Unavailable [phone] Amelia Houston Unavailable Encounter Details Date Type Department Care Team (Late st Contact Info) Description 01/16/2023 Orders Only [facility] [address] [place] [address] Rayne Fierro MD [address] [place] [address] Low back pain at multiple sites (Primary [...] this encounter Results * COVID-19 ID NOW (ORVIBO) (02/17/2023 1:07 PM EDT) IDNOW SERIAL# [id number] [facility] COVID-19 TEST Negative Negative [facility] COVID-19 NOTE See Note [facility] Comment: Results are for the identification of SARS-CoV2 RNA. TheSARS-CoV2 RNA is generally detectable in respiratory samplesduring the acute phase of infection. Positive results areindicative of the presence of SARS-CoV-2 RNA; clinicalcorrelation with patient history and other diagnosticinformation is necessary to determine patient infectionstatus. Positive results do not rule out bacterial infectionor co- infection with other viruses.Testing facilities within the [facility] and [facility] are required to report all positive results [...] use by authorized laboratories.Testing performed on the [employer] ID NOW utilizing NAAT. 02/17/2023 1:07 PM EDT 02/17/2023 1:09 PM EDT [facility] Exter nal Provider LAB MOLECULAR DIAGNOSTICS ORDERABLES Final Result Performing Organization Address [facility] Co de Phone Number [facility] [address] [place] [phone] * Sodium Without creatinine, Random Urine (02/17/2023 12:33 PM EDT) Sodium Urine Random <20.0 mmol/L [facility] 02/17/2023 12:3 3 PM EDT 02/17/2023 2:21 PM EDT [facility] External Provider LAB BLO OD ORDERABLES Final Result Performing Organization Address [facility] Co de Phone Number [facility] [address] [place] [phone] * Creatinine, Random Urine (02/17/2023 12:33 PM EDT) Creatinine, Urine 379.60 mg/dL [facility] 02/17/2023 12:3 3 PM EDT 02/17/2023 2:21 PM EDT [facility] External Provider LAB URI NE ORDERABLES Final Result Performing Organization Address [facility] de Phone Number [facility] [address] [place] [phone] * (ABNORMAL) Urinalysis, Complete, with Reflex to Culture (02/17/2023 12:33 PM EDT) Color Urine Dark Yellow [facility] Appearance Urine Cloudy [facility] PH 5.0 5.0 - 9.0 [facility] Glucose Urine UA Negative Negative mg/dL [facility] Urine Blood Small (1+)(A) Negative [facility] Specific [place] - Urine 1.020 1.005 - 1.025 [facility] Urine Protein 100 (2+)(A) Neg-Trace mg/dL [facility] Urine Ketones Trace Negative mg/dL [facility] Nitrite Urine Negative Negative [facility] Leukocyte Esterase Urine Negative Negative [facility] RBC Urine 0-2 0 - 2 /HPF [facility] Urine WBC 0-5 0 - 5 /HPF [facility] Urine Squamous Epithelial Cell 6-10 0 - 2 /HPF [facility] Other Crystals Urine Present [facility] Urine Bacteria None Seen None Seen [facility] Hyaline Casts, Urine 11-20 0 - 2 /LPF [facility] 02/17/2023 12:3 3 PM EDT 02/17/2023 12:42 PM EDT Narrative [facility] - 02/17/2023 12:54 PM EDT [id number], Clean Catch [facility] External Provider LAB URI NE ORDERABLES Final Result Performing Organization Address [facility] Co de Phone Number [facility] [address] [place] [phone] * (ABNORMAL) Phosphate (As Phosphorus) (02/17/2023 12:20 PM EDT) Phosphorus 5.9(H) 2.7 - 4.5 mg/dL [facility] 02/17/2023 12:2 0 PM EDT 02/17/2023 12:24 PM EDT [facility] External Provider LAB BLO OD ORDERABLES Final Result Performing Organization Address [facility] Co de Phone Number [facility] [address] [place] [phone] * (ABNORMAL) Lipase (02/17/2023 12:20 PM EDT) Lipase 286(H) 8 - 78 U/L [facility] 02/17/2023 12:2 0 PM EDT 02/17/2023 12:24 PM EDT [facility] External Provider LAB BLO OD ORDERABLES Final Result Performing Organization Address [facility] Co de Phone Number [facility] [address] [place] [phone] * Hepatic Function Panel (02/17/2023 12:20 PM EDT) Bilirubin, Direct 0.3 0.0 - 0.5 mg/dL [facility] 02/17/2023 12:2 0 PM EDT 02/17/2023 12:24 PM EDT [facility] External Provider LAB BLO OD ORDERABLES Final Result Performing Organization Address [facility] Co de Phone Number [facility] [address] [place] [phone] * (ABNORMAL) Comprehensive Metabolic Panel (02/17/2023 12:20 PM EDT) Sodium 133(L) 135 - 145 mmol/L [facility] Potassium 4.0 3.3 - 5.1 mmol/L [facility] Chloride 104 96 - 108 mmol/L [facility] Carbon Dioxide 16(L) 22 - 29 mmol/L [facility] Anion Gap 17 12 - 20 [facility] Urea Nitrogen (BUN) 79(H) 9 - 16 mg/dL [facility] Creatinine, Serum 10.12(HH) 0.5 - 1.4 mg/dL [facility] Comment:Critical value for C RES: Results called to and read brittneyyMariah MAHAJAN Person calling: RAGHAV Date: 02/17/23 Time: 1245 Creatinine Clr Calc Pharmacy 9.5 [facility] Comment:eGFR (calculated fro m the MDRD study equation) and eCrCl(calculated from the Cockcroft-Gault equation) are based ondifferent parameters and may not yield comparable results.If eCrCl result is absurd, please check patient'sheight/weight. Estimated Glomerular Filt Rate 5 [facility] Comment:NOTE: For -Am erican individuals, multiply the result by 1.210.Chronic Kidney Disease: Estimated GFR < 60 mL/min/1.78t4Ylvwak Kidney Disease: Estimated GFR < 15 mL/min/1.73m2 Glucose 113 60 - 115 mg/dL [facility] Calcium 8.1(L) 8.4 - 10.2 mg/dL [facility] Bilirubin, Total 0.7 0.0 - 1.0 mg/dL [facility] Aspartate Amino Transferase 43(H) 5 - 37 U/L [facility] Alanine Aminotransferase 30 0 - 40 U/L [facility] Total Protein 7.9 6.5 - 8.0 g/dL [facility] Albumin Level 4.0 3.5 - 5.0 g/dL [facility] Alkaline Phosphatase 92 39 - 117 U/L [facility] 02/17/2023 12:2 0 PM EDT 02/17/2023 12:24 PM EDT [facility] External Provider LAB BLO OD ORDERABLES Final Result [facility] [address] [place] [phone] documented in this encounter Visit Diagnoses Diagnosis Low back pain at multiple sites- Primary documented in this encounter Care Teams Machine Scallop Cutter Relationship Specialty Start Date End Date Dariela Zapata MD [address] [place] [address] PCP - General Family Medicine 10/14/19 Sharon Lyon RN [address] [place] [phone] Registered Nurse Family Medicine 07/31/25 Amelia Houston 07/31/25 documented as of this encounter
--- OUTSIDE RECORDS SUMMARY | 2025-08-05 15:00 | XMS_ITS | Clinical Summary ---
Author Organization [facility] Address [address] [facility] [address] [place] [phone] Phone Care Team Providers Care Line Tester Name Role Phone Lucy Bryant MD Primary [...] complete this topic Insurance Medicaid [place] Care Teams Line Tester Relationship Specialty Start Date End Date Lucy Bryant MD PCP - General 11/23/20
--- OUTSIDE RECORDS SUMMARY | 2025-08-05 15:00 | XMS_ITS | Clinical Summary ---
Author Organization [email or web address] Address [address] [facility] 7[address] [place] [address] Care Team Providers Care Therapeutic Sales Specialist Name Role Phone Dariela Zapata MD Primary Care Provide r Sharon Lyon RN Unavailable [phone] Amelia Houston Unavailable Allergies Active Allergy Reactions Criticality Noted Date [...] BY MOUTH EVERY MORNING 90 tablet 1 04/28/2 025 Active lisinopril 20 MG tabletIndications:E ssential hypertension TAKE 1 TABLET BY MOUTH EVERY MORNING 90 tablet Active pantoprazole (ProtoNix) 40 MG EC tablet TAKE 1 TABLET BY MOUTH EVERY MORNING 90 tablet Active chlorhexidine (Peridex) 0.12 % solution Swish [...] TABLET BY MOUTH EVERY MORNING 90 tablet Active felodipine ER (Plendil) 5 MG 24 hr tabletIndications:H ypertension, unspecified type TAKE 1 TABLET BY MOUTH EVERY EVENING 90 tablet Active rosuvastatin (Crestor) 40 MG tabletIndications:H ypertension, unspecified type TAKE 1 TABLET BY MOUTH EVERY EVENING 90 tablet 025 Active metoprolol tartrate (Lopressor) 50 MG tabletIndications:H ypertension, unspecified type TAKE 1 TABLET BY MOUTH TWICE DAILY IN THE MORNING AND IN THE EVENING 180 tablet 025 Active zolpidem (Ambien) 10 MG tabletIndications:I nsomnia, unspecified type Take 1 tablet (10 mg) by mouth at bedtime. 30 tablet Active gabapentin (Neurontin) 300 MG capsuleIndications: Pain Take 1 capsule (300 mg) by mouth 2 times daily. 60 capsule 2 025 Active lidocaine (Lidoderm) 5 % patchIndications:Lo w [...] eorder (will not trigger notification to Pharmacy)) Active Problems Problem Noted Date Diagnosed Date [...] Encounters Date Type Department Care Team Description 08/04/2025 Orders Only GENERIC EXTERNAL DATA DEPARTMENT Provider, Generic External Data 07/31/2025 Patient Outreach [address] [address] Dariela Zapata MD Care Coordination (CM/CHW outreach) 07/31/2025 Patient Outreach [address] [address] Dariela Zapata MD Care Coordination (CHW chart review) 07/31/2025 Patient Outreach [address] [address] Dariela Zapata MD Care Management ([facility]- chart review) 07/31/2025 Patient Outreach [address] [address] Dariela Zapata MD 07/30/2025 Orders Only GENERIC EXTERNAL DATA DEPARTMENT Provider, Generic External Data 07/15/2025 9:30 AM EDT Office Visit [address] [address] Dariela Zapata MD Essential hypertension (Primary Dx); Crohn's disease of both small and large intestine with fistula (CMS/HCC); Perianal fistula due to Crohn's disease (CMS/HCC); Incontinence of feces, unspecified fecal incontinence type; Insomnia, unspecified type; Pain; Low back pain at multiple sites; Encounter for immunization; Stage 3b chronic kidney disease (CMS/HCC) 07/15/[address] [address] Dariela Zapata MD Durable Medical Equipment (DME Order: [employer]) 07/15/2025 Travel 07/11/2025 Telephone [facility] [address] [place] [address] Dariela Zapata MD Chart Prep 07/07/2025 Patient Outreach [facility] [address] [place] [address] Dariela Zapata MD Care Coordination (CHW outreach SDOH pest control - LVM ) 07/07/2025 Patient Outreach [facility] [address] [place] [address] Dariela Zapata MD Pre-visit Planning ((SDOH screening positive tobacco screening negative) ) 07/04/2025 Telephone [facility] [address] [place] [phone] Dariela Zapata MD Durable Medical Equipment 06/24/2025 8:00 AM EDT Office Visit [facility] [address] [place] [address] Aliji, Nunez Pain, dental (Primary Dx); Dental caries; Periapical abscess without sinus 06/23/2025 11:00 AM EDT Office Visit [facility] [address] [place] [address] Aliji, Nunez Pain, dental (Primary Dx) 06/20/2025 Refill [facility] [address] [place] [address] Dariela Zapata MD Low back pain at multiple sites 06/19/2025 Refill [facility] [address] [place] [address] Dariela Zapata MD Insomnia, unspecified type 06/02/2025 Refill [facility] [address] [place] [address] Dariela Zapata MD Hypertension, unspecified type 05/22/2025 Refill [facility] [address] [place] [address] Dariela Zapata MD Cervicalgia 05/19/2025 Refill [facility] [address] [place] [address] Dariela Zapata MD Pain 05/15/2025 Refill [facility] [address] [place] [address] Rayne Fierro MD Insomnia, unspecified type 05/07/2025 Orders Only [facility] External Provider, [facility] from Last 3 Months Immunizations Immunization Administration [...] your housing situation today? I have carlos dulce 07/07/[address] you li [...] Additional history exists Dental X-Ray: [facility] 02/20/2026 02/20/20 25, 08/20/2015, 09/16/2014, Additional history exists SDOH Screening [...] Procedure Name Priority Date/Time Associated Diagnosis Comments C-REACTIVE PROTEIN Routine 08/04/2025 3: 50 PM EDT COMPREHENSIVE METABOLIC PANEL Routine 08/04/2025 3:50 PM EDT CBC WITH AUTO DIFFERENTIAL Routine 08/04/2025 3:50 PM EDT SED RATE BY MODIFIED WESTERGREN [...] Maintenance Results * (ABNORMAL) CBC auto differential (08/04/2025 3:50 PM EDT) Only the most recent of3 resultswithin the time period is included. White Blood Count 8.4 4.8 - 10.8 X10*3/uL [facility] Red Blood Count 3.67(L) 4.60 - 5.80 X10*6/uL [facility] Hemoglobin 10.8(L) 14.0 - 18.0 g/dl [facility] Hematocrit 34.2(L) 42.0 - 52.0 % [facility] Mean Corpuscular Volume 93.2 80.0 - 98.0 fL [facility] Mean Corpuscular Hemoglobin 29.4 27.0 - 33.0 pg [facility] Mean Corpuscular HGB Conc 31.6 31.0 - 36.0 g/dl [facility] Red Cell Distribution Width 14.2 11.0 - 16.0 % [facility] Platelet Count 278 160 - 400 X10*3/uL [facility] Mean Platelet Volume 9.8 9.4 - 12.4 fL [facility] Neutrophils Percent Auto 72.6 45 - 73 % [facility] Imm Gran Pct Auto 0.4 0.0 - 0.4 % [facility] Lymphocytes Percent Auto 17.6(L) 20 - 40 % [facility] Monocytes Percent Auto 7.3 2 - 11 % [facility] Eosinophils Percent Auto 1.7 0 - 4 % [facility] Basophils Percent Auto 0.4 0 - 2 % [facility] NRBC Pct Auto 0.0 0.0 - 0.2 /100WBC [facility] Neutrophils Absolute Auto 6.1 2.0 - 8.3 x10*3/uL [facility] Imm Gran Abs Auto 0.03 0.00 - 0.03 X10*3/uL [facility] Lymphocytes Absolute Auto 1.5 1.2 - 4.9 X10*3/uL [facility] Monocytes Absolute Auto 0.6 0.1 - 1.2 X10*3/uL [facility] Eosinophils Absolute Auto 0.1 0.0 - 0.4 X10*3/uL [facility] Basophils Absolute Auto 0.0 0.0 - 0.2 X10*3/uL [facility] NRBC Abs Auto 0.000 0.0 - 0.012 X10*3/uL [facility] 08/04/2025 3:50 PM EDT 08/04/2025 3:50 PM EDT us Generic External Data Provider LAB BLOOD ORDERAB LES Final Result [facility] [address] [place] [phone] * (ABNORMAL) C-reactive Protein (08/04/2025 3:50 PM EDT) Only the most recent of2 resultswithin the time period is included. C Reactive Protein 2.82(H) < or = 0.50 mg/dL [facility] 08/04/2025 3:50 PM EDT 08/04/2025 3:50 PM EDT us Generic External Data Provider LAB BLOOD ORDERAB LES Final Result Performing Organization Address City/[facility]/ZIP Co de Phone Number [facility] [address] [place] [phone] * (ABNORMAL) Comprehensive Metabolic Panel (08/04/2025 3:50 PM EDT) Only the most recent of3 resultswithin the time period is included. Sodium 139 135 - 145 mmol/L [facility] Potassium 4.8 3.3 - 5.1 mmol/L [facility] Comment:Slight Hemolysis.Int erpret result with caution. Chloride 102 96 - 108 mmol/L [facility] Carbon Dioxide 28 22 - 29 mmol/L [facility] Anion Gap 14 12 - 20 [facility] Urea Nitrogen (BUN) 16 9 - 16 mg/dL [facility] Creatinine, Serum 1.76(H) 0.5 - 1.4 mg/dL [facility] Estimated Glomerular Filt Rate 40 [facility] Comment:Chronic Kidney Disea se: Estimated GFR < 60 mL/min/[id number] Kidney Disease: Estimated GFR < 15 mL/min/1.73m2 Glucose 79 60 - 115 mg/dL [facility] Calcium 9.4 8.4 - 10.2 mg/dL [facility] Bilirubin, Total 0.4 0.0 - 1.0 mg/dL [facility] Aspartate Amino Transferase 32 5 - 37 U/L [facility] Comment:Slight Hemolysis.Int erpret result with caution. Alanine Aminotransferase 15 0 - 40 U/L [facility] Total Protein 8.7(H) 6.5 - 8.0 g/dL [facility] Albumin Level 4.1 3.5 - 5.0 g/dL [facility] Alkaline Phosphatase 67 39 - 117 U/L [facility] 08/04/2025 3:50 PM EDT 08/04/2025 3:50 PM EDT Generic External Data Provider LAB BLOOD ORDERAB LES Final Result [facility] [address] [place] [phone] * (ABNORMAL) Sed Rate by Modified Falguniren (07/30/2025 12:32 PM EDT) Erythrocyte Sedimentation Rate 64(H) 0 - 15 MM/HR [facility] Comment:Patients with polycy themia and many hemoglobin abnormalitiesmay have depressed sed rates whereas patients with anemiamay have elevated sed rates. 07/30/2025 12:3 2 PM EDT 07/30/2025 12:40 PM EDT us Generic External Data Provider LAB BLOOD ORDERAB LES Final Result Performing Organization Address [facility] de Phone Number [facility] [address] [place] [phone] * CT Chest w/o Contrast (05/08/2025 11:31 AM EDT) Anatomical Region Laterality Modality Body, Chest Computed Tomogra phy 05/08/2025 11:3 1 AM EDT Narrative 05/08/2025 12:14 PM EDT [address] [address] [address] Scan Report Signed Patient: Jayden Pierce MR#: [id number] : 1965 Acct:[id number] Age/Sex: 60 / M ADM Date: 05/07/25 Loc: HO.S3 363-[address]: Malina Mcnally DNP Ordering Physician: Malina Mcnally DNP Date of Service: 05/08/25 Procedure(s): CT chest wo IV con Accession Number(s): [id number] cc: [facility]; Malina Mcnally DNP Report Number: [id number]: Total DLP = 304.00 mGy-cm EXAMINATION: CT [...] 05/08/25 1211 DD/ 1131 TD/TT: 05/08/25 1155 Cardiac/Vascular Sonographer: Procedure Note Donotuseinterpreter, Image - 05/08/[address] [address] [address] Scan Report Signed Patient: Luisa Pierce#: [id number] : 1965Acct:[id number] Age/Sex: 60 / MADM Date: 05/07/25 Loc: .S3 363-[address]: Malina Mcnally DNP Ordering Physician: Malina Mcnally DNP Date of Service: 05/08/25 Procedure(s): CT chest wo IV con Accession Number(s): [id number] cc: [facility]; Malina Mcnally [facility] Report Number: [id number]: Total DLP = 304.00 mGy-cm EXAMINATION: CT [...] 05/08/25 1211 DD/ 1131 TD/TT: 05/08/25 1155 Cardiac/Vascular Sonographer: [facility] External Provider IMG CT PROCEDURES Final Result * Lactic Acid (05/07/2025 2:31 PM EDT) Lactic Acid 1.3 0.5 - 2.0 mmol/L [facility] 05/07/2025 2:31 PM EDT 05/07/2025 2:36 PM EDT Generic External Data Provider LAB BLOOD ORDERAB LES Final Result Performing Organization Address [facility] de Phone Number [facility] [address] [place] [phone] * High Sensitivity Troponin I (05/07/2025 12:30 PM EDT) TROPONIN I HIGH SENSITIVITY 5.3 <3.5 - 35.0 ng/L [facility] Comment:The [place] high sens itivity Troponin-I results should beused in conjunction with other diagnostic information suchas ECG, clinical observations and information, and patientsymptoms to aid in the diagnosis of [place]. 05/07/2025 12:3 0 PM EDT 05/07/2025 2:30 PM EDT Generic External Data Provider LAB BLOOD ORDERAB LES Final Result Performing Organization Address City/[facility] Co de Phone Number [facility] [address] [place] [phone] * Magnesium (05/07/2025 12:30 PM EDT) Magnesium 1.6 1.6 - 2.6 mg/dL [facility] 05/07/2025 12:3 0 PM EDT 05/07/2025 12:32 PM EDT Generic External Data Provider LAB BLOOD ORDERAB LES Final Result [facility] [address] [place] [phone] * XR Chest 1 View (05/07/2025 11:04 AM EDT) Anatomical Region Laterality Modality Chest Radiographic Kendra ging 05/07/2025 11:0 4 AM EDT Narrative 05/07/2025 12:13 PM EDT [address] [address] XRay Report Signed Patient: Jayden Pierce MR#: [id number] : 1965 Acct:[id number] Age/Sex: 60 / M ADM Date: 05/07/25 Loc: HO.ED Attending Dr: Ordering Physician: Gerardo Navarro PA-C Date of Service: 05/07/25 Procedure(s): XR chest 1V Accession Number(s): [id number] cc: Gerardo Navarro PA-C; [facility] EXAMINATION: XR CHEST CLINICAL INFORMATION: cough, [...] 05/07/25 1210 DD/ 1104 TD/TT: 05/07/25 1203 Cardiac/Vascular Sonographer: Procedure Note Donotuseinterpreter, Image - 06/25/[address] [address] XRay Report Signed Patient: Luisa Pierce#: [id number] : 1965Acct:[id number] Age/Sex: 60 / MADM Date: 05/07/25 Loc: HO.ED Attending Dr: Ordering Physician: Gerardo Navarro PA-C Date of Service: 05/07/25 Procedure(s): XR chest 1V Accession Number(s): [id number] cc: Gerardo Navarro PA-C; [facility] EXAMINATION: XR CHEST CLINICAL INFORMATION: cough, [...] 05/07/25 1210 DD/ 1104 TD/TT: 05/07/25 1203 Cardiac/Vascular Sonographer: us [facility] External Provider IMG XR PROCEDURES Final Result * Hepatitis C Antibody with Reflex to HCV, RNA, Quantitative, Real-Time PCR (05/13/2024 9:05 AM EDT) Hepatitis C Antibody Nonreactive Nonreactive [facility] Comment:Antibodies to HCV no t detected; does not exclude early acuteHCV infection. Blood Venous blood specimen / Unknown 05/13/2024 9:05 AM EDT 05/13/2024 11:43 AM EDT us Dariela Scott MD LAB BLOOD ORDERABLES Final Result [facility] [address] [place] [phone] * (ABNORMAL) Lipid Panel, Standard (05/13/2024 9:05 AM EDT) Triglycerides 310(H) <150 mg/dL [facility] Comment:Desirable Triglyceri de: less than 150 mg/dLBorderline High Triglyceride 150-199 mg/dLHigh Triglyceride: 200-499 mg/dLVery High Triglyceride: greater than or equal to 5OO mg/dL Cholesterol 320(H) <200 mg/dL [facility] Comment:Desirable Cholestero l: less than 200 mg/dLBorderline High Cholesterol: 200-239 mg/dLHigh Cholesterol: greater than 239 mg/dL LDL Cholesterol Calculated 223(H) <100 mg/dL [facility] Comment:Desirable LDL: less than 100 mg/dLNear Optimal/Above Optimal LDL: 110- 129 mg/dLBorderline High LDL: 130-159 mg/dLHigh LDL: 160-189 mg/dLVery High LDL: greater than or equal to 190 mg/dL HDL Cholesterol 35(L) >40 mg/dL [facility] Comment:Desirable HDL: great er than 40 mg/dL Note: This HDL assay may give artificially low results in patients with liver disease. Blood Venous blood specimen / Unknown 05/13/2024 9:05 AM EDT 05/13/2024 11:39 AM EDT us Dariela Scott MD LAB BLOOD ORDERABLES Final Result [facility] [address] [place] [phone] [phone] * Hm Colonoscopy (10/26/2016) us Historical Provider HEALTH MAINTENANCE Final Result from Last 3 Months or Most Recently Relevant to Health Maintenance Insurance [facility] C[facility] DENTAL-[facility] MEDICAID STAND ADULT Care Teams Therapeutic Sales Specialist Relationship Specialty Start Date End Date Dariela Zapata MD [address] [place] [address] PCP - General Family Medicine 10/14/19 Sharon Lyon, NEGRO [address] [place] [address] SAUNDRA Cardona [address] Registered Nurse Family Medicine 07/31/25 Amelia Houston 07/31/25
[2025-08-14 02:38] LABS: Lactoferrin, Fecal, Quant. 21.91 mcg/mL (<7.25)
== END 2025-08-05 12:03 | disposition home or self-care (01) ==
LOC: HO.LNP 12:02
PROVIDERS: Visit Provider Internal Medicine Gastroenterology
DX: K50.918 Crohn's disease, unspecified, with other complication (principal)
CPT/HCPCS: 83631; 87493; 87507

== ENCOUNTER → 2025-08-20 08:36 | Day surgery (SDC) | payer MEDICAID, SELFPAY ==
[2025-08-18 13:49] VITALS: BMI 35.4
--- NOTE | 2025-08-19 10:29 | HO.ANESPROP2 ---
HPI - Anesthesia Eval Consult details Narrative: 60 yr old male for pouchoscopy Opioid use disorder: on methadone, had positive tox screen 04/2025 with fentanyl PMFSH Active Problems Active Problems: All Active Problems Crohn's colitis (Acute) Opioid use disorder (Acute) Past Medical History Medical History Clostridium difficile carrier Opioid use disorder Constipation Crohn's disease of both small and large intestine CKD (chronic kidney disease) Ulcerative colitis HLD (hyperlipidemia) Colitis HTN (hypertension) Family History Family History Mother Stroke Diabetes mellitus HTN (hypertension), benign Hyperlipidemia Brother Diabetes mellitus Family history of problems with anesthesia: No Surgical History Surgical History History of esophagogastroduodenoscopy (EGD) Hx of colonoscopy H/O total colectomy H/O cervical spine surgery History of colostomy reversal History of Problems with Anesthesia: No Social History Social History Household Members: None Housing: Apartment Housing Other:: Rents a room Do you presently have visiting nurse or other home services: No Alcohol intake: current Alcohol intake frequency: does not drink Comment: Chirag Patient Tobacco Use Status: Never used Tobacco e-Cigarette/Vaping Use: Never Used Second Hand Smoke Exposure: No Substance Use Type: Heroin Advance Directives Date on File: 03/08/21 service: No Current occupational status: unemployed Meds Allergies Allergy/AdvReac Type Severity Reaction Status Date / Time Iodinated Contrast Media (IV Allergy Intermediate HIVES Verified 08/04/25 13:45 CONTRAST) prednisone (PREDNISONE) Allergy Mild RASH Verified 08/04/25 13:45 Home Medications ?Medication ?Instructions ?Recorded ?Confirmed ?Last Taken ?Type metoprolol tartrate 50 mg tablet 50 mg PO BID 03/03/21 08/18/25 05/06/25 History rosuvastatin 40 mg tablet 40 mg PO BEDTIME 03/03/21 08/18/25 05/06/25 History zolpidem 10 mg tablet 1 tab PO BEDTIME 03/03/21 08/18/25 05/06/25 History ferrous gluconate 324 mg (38 mg 1 tab PO DAILY 06/30/21 08/18/25 05/06/25 History iron) tablet lidocaine 5 % topical patch 1 patch topical DAILY 08/20/21 08/18/25 05/06/25 History cyanocobalamin (vitamin B-12) 1 tab PO DAILY 07/07/22 08/18/25 05/06/25 History 1,000 mcg tablet gabapentin 300 mg capsule 300 mg PO TID 02/17/23 08/18/25 05/06/25 History methadone 10 mg/mL oral concentrate 50 mg PO DAILY 02/17/23 05/08/25 05/07/25 History lisinopril 20 mg tablet 20 mg PO DAILY 11/01/24 08/18/25 05/06/25 History pantoprazole 40 mg tablet,delayed 40 mg PO DAILY@0630 11/01/24 08/18/25 05/06/25 History release acetaminophen 650 mg 650 mg PO Q8H PRN mild pain 05/07/25 08/18/25 Unknown History tablet,extended release felodipine 5 mg tablet,extended 5 mg PO BEDTIME 05/07/25 08/18/25 05/06/25 History release 24 hr mesalamine 400 mg capsule (with 800 mg PO TID 05/07/25 08/18/25 05/06/25 History delayed release tablets inside) calcium polycarbophil 625 mg 625 mg PO DAILY 08/04/25 08/18/25 Unknown History tablet (Fiber-Lax) Exam Height,Weight and Vital Signs: Height 5 ft 9 in Weight 108.862 kg Assessment and Plan Final Anesthetic Review Family History of Problems with Anesthesia: No History of Problems with Anesthesia: No
--- NOTE | 2025-08-20 09:01 | MHC.SHP ---
Pre-Procedural Eval Section A - 24 Hr Update-Section A only Date of Service: 08/20/25 The patient is an INPATIENT: No The patient has been examined within 24 hours of the surgical procedure. The History & Physical has been completed within 30 days and I have reviewed it.: Yes Section B - Complete if H&P > 30 days Chief Complaint: Crohn's disease of large intestine without complic Allergies: Allergies Allergy/AdvReac Type Severity Reaction Status Date / Time Iodinated Contrast Media (IV Allergy Intermediate HIVES Verified 08/04/25 13:45 CONTRAST) prednisone (PREDNISONE) Allergy Mild RASH Verified 08/04/25 13:45 Plan Diagnosis/Plan: Unchanged I have reviewed the history and physical and performed a pertinent physical examination on my patient. No changes have occurred unless specified. Time Spent With Patient Time: Total time managing care of this patient today ____ minutes.
--- NOTE | 2025-08-20 09:08 | PC.NURSE ---
Pt arrived with a Sprite bottle half empty to PRE OP. States had the drink this morning and unsure when he last drank it. RN d/w Dr. Silva and Dr. Shelby. Consult at bedside with MD, pt advised procedure would be done and it would be postponed x 2 hours due to risk of aspiration. Pt states he does not want to wait 2 hours. Pt unable to provide UTOX today, states, I just went to the bathroom . Pt decided to leave and would like this apt rescheduled. Educated pt on pre op instructions for return apt. Pt states took Methadone 50 this am. Pt discharged from PRE OP w/all belongings.
== END ==
LOC: HO.SSS 08:36
PROVIDERS: PCP General Practice; Visit Provider Internal Medicine Gastroenterology
DX: K50.10 Crohn's disease of large intestine without complications (principal); Z53.8 Procedure and treatment not carried out for other reasons

== ENCOUNTER 2025-09-13 13:53 | Inpatient (IN) | payer MEDICAID, SELFPAY ==
--- NOTE | 2025-09-13 | ECG_ITS ---
Test Reason : CHEST PAIN Blood Pressure : */* mmHG Vent. Rate : 73 BPM Atrial Rate : 73 BPM P-R Int : 196 ms QRS Dur : 94 ms QT Int : 418 ms P-R-T Axes : 37 -27 1 degrees QTcB Int : 460 ms Normal sinus rhythm Minimal voltage criteria for LVH, may be normal variant ( Noble product ) Borderline ECG When compared with ECG of 07-May-2025 11:44, Nonspecific T wave abnormality now evident in Inferior leads Referred By: Generic ED Physician Electronically Signed By: ABDI PAULA
--- NOTE | ~2025-09-13 | CT_ITS ---
CLINICAL HISTORY: diarrhea, rectal pain, abdominal pain hx of Crohns CT abdomen and pelvis without contrast Comparison: CT/REG/AZ/SR - CT ABDOMEN PELVIS WITHOUT IV CONTRAST - 05/02/23 11:[address]/REG/SR - CT ABDOMEN PELVIS WITHOUT IV CONTRAST - 02/17/23 12:45 EDT Findings: No consolidation at the lung bases. Underdistended gallbladder. Unremarkable bladder. Hepatic steatosis. Splenic granulomatosis. The other solid organs are unremarkable. Status post colectomy. There are dilated loops of small bowel which measure up to 3.7 cm. There is fecalization indicating delayed transit. Right lower quadrant small bowel anastomotic sutures. Mild amount of fat stranding and small lymph nodes measuring up to 0.6 cm to the right of the anastomosis of the small bowel with the rectum, similar to the prior study. No fluid collection or free air. There is soft tissue attenuation in the mesorectal fat presacral region, also present on the prior study. There is new fluid attenuation with foci of air seen in the region posterior to the rectum (series 2 image 74) this reaches measures 1.4 x 1.7 x 2.1 cm (series 2, image 74 and series 7, image 79). No aneurysm. Moderate to severe calcified atherosclerotic disease. No lymphadenopathy. No ascites. Status post ventral hernia repair. No acute osseous abnormality. Impression: New 1.7 cm perirectal abscess. This document has been electronically signed by: Estela Wilks MD on 09/13/2025 18:34:41
--- NOTE | ~2025-09-13 | XR_ITS ---
CLINICAL HISTORY: chest pain 2 view chest x-ray Comparison: CR/SR - XR CHEST 1 VIEW - 05/07/25 12:04 EDT Findings: The lungs are clear. Heart size is normal. No acute fracture. IMPRESSION: 1. No acute findings. This document has been electronically signed by: Kev Oh MD on 09/13/2025 16:21:57
[2025-09-13 13:58] VITALS: BP 96/50; PULSE 77; O2SAT 96
[2025-09-13 14:00] VITALS: BMI 30.9
--- OUTSIDE RECORDS SUMMARY | 2025-09-13 14:56 | XMS_ITS | Encounter Summary ---
Author Organization [employer] Address [address] [facility] [address] [place] [address] Care Team Providers Care Human Resources Clerk Name Role Phone Dariela Zapata MD Primary Care Provide r Sharon Lyon RN Unavailable [phone] Amelia Houston Unavailable Reason for Visit * Reason Comments Med Refill Encounter Details Date Type Department Care Team (Late st Contact Info) Description 06/16/2024 Refill [facility] [address] [place] [address] Dariela Zapata MD [address] [place], [place] [phone] Cervicalgia Social History Tobacco Use Types Packs/Day [...] with others, in a hotel, in a usp, living outside on the street, on a [...] as of this encounter Plan of Treatment Upcoming Encounters Date Type Department Care Team (Late st Contact Info) Description 10/20/2025 9:00 AM EST Office Visit [facility] [address] [place] [address] Dariela Zapata MD [address] [place] [address] documented as of this encounter Visit Diagnoses Diagnosis Cervicalgia documented in this encounter Additional Health Concerns Assessment Noted Time PHQ-9 Depression Total Score: 0 03/25/20 24 2:34 PM EDT documented as of this encounter Care Teams Human Resources Clerk Relationship Specialty Start Date End Date Dariela Zapata MD [address] [place] [address] PCP - General Family Medicine 10/14/19 Sharon Lyon RN [address] [place] [phone] Registered Nurse Family Medicine 07/31/25 Amelia Houston 07/31/25 documented as of this encounter
--- OUTSIDE RECORDS SUMMARY | 2025-09-13 14:56 | XMS_ITS | Clinical Summary ---
Author Organization [facility] ity Address [address] [place] [address] Care Team Providers Care Soil Conservationist Name Role Phone Unavailable Primary Care Provider [...]
--- OUTSIDE RECORDS SUMMARY | 2025-09-13 14:56 | XMS_ITS | Encounter Summary ---
Author Organization [employer] Address [address] [facility] 7t [place] [address] Care Team Providers Care Manager Enterprise Content Management Name Role Phone Dariela Zapata MD Primary Care Provide r Sharon Lyon RN Unavailable [phone] Amelia Houston Unavailable Reason for Visit * Reason Comments Med Refill Encounter Details Date Type Department Care Team (Late st Contact Info) Description 09/13/2025 Refill [facility] [address] [place] [address] Dariela Zapata MD [address] [place], [place] [phone] Insomnia, unspecified type Social History Tobacco Use [...] Description 10/20/2025 9:00 AM EST Office Visit [facility] [address] [place] [address] Dariela Zapata MD [address] [place] [address] documented as of this encounter Visit Diagnoses Diagnosis Insomnia, unspecified type documented in this encounter Additional Health Concerns Assessment Noted Time PHQ-9 Depression Total Score: 6 07/15/20 25 9:19 AM EDT documented as of this encounter Care Teams Manager Enterprise Content Management Relationship Specialty Start Date End Date Dariela Zapata MD [address] [place] [address] PCP - General Family Medicine 10/14/19 Sharon Lyon RN [address] [place] [phone] Registered Nurse Family Medicine 07/31/25 Amelia Houston 07/31/25 documented as of this encounter
--- OUTSIDE RECORDS SUMMARY | 2025-09-13 14:56 | XMS_ITS | Encounter Summary ---
Author Organization [employer] [facility] Address [address] [place] [address] 7t [place] [address] Care Team Providers Care Plant Controls Specialist Name Role Phone Dariela Zapata MD Primary Care Provide r Sharon Lyon RN Unavailable Amelia Houston Unavailable Reason for Visit * Reason Comments Med Refill Encounter Details Date Type Department Care Team (Late st Contact Info) Description 06/08/2023 Refill [facility] [address] [place] [address] [phone] Dariela Zapata MD [address] [place] [address] [phone] Insomnia, unspecified type Social History Tobacco Use [...] Description 10/20/2025 9:00 AM EST Office Visit [facility] [address] [place] [address] [phone] Dariela Zapata MD [address] [place] [address] [phone] documented as of this encounter Visit Diagnoses Diagnosis Insomnia, unspecified type documented in this encounter Care Teams Plant Controls Specialist Relationship Specialty Start Date End Date Dariela Zapata MD [address] [place] [address] PCP - General Family Medicine 10/14/19 Sahron Lyon RN [address] [place] [address] Registered Nurse Family Medicine 07/31/25 Amelia Houston 07/31/25 documented as of this encounter
--- OUTSIDE RECORDS SUMMARY | 2025-09-13 14:56 | XMS_ITS | Encounter Summary ---
Author Organization [employer] Address [address] [facility] 7t [place] [address] Care Team Providers Care Booky Name Role Phone Dariela Zapata MD Primary Care Provide r Sharon Lyon RN Unavailable [phone] Amelia Houston Unavailable Reason for Visit * Reason Comments Med Refill Encounter Details Date Type Department Care Team (Late st Contact Info) Description 01/05/2024 Refill [facility] [address] [place] [address] Dariela Zapata MD 230 [place], [place] [phone] Low back pain at multiple sites Social History Tobacco Use Types Packs/Day Years Used Date Smoking Tobacco: Never Assessed Housing Stability Answer Date Recorded What is your housing situation today? I do not have housing (Staying with others, in a hotel, in a jail, living outside on the street, on a [...] Description 10/20/2025 9:00 AM EST Office Visit [facility] [address] [place] [phone] Dariela Zapata MD [address] [place] [address] documented as of this encounter Visit Diagnoses Diagnosis Low back pain at multiple sites documented in this encounter Care Teams Booky Relationship Specialty Start Date End Date Dariela Zapata MD [address] [place] [address] PCP - General Family Medicine 10/14/19 Sharon Lyon, RN [address] [place] [phone] Registered Nurse Family Medicine 07/31/25 Amelia Houston 07/31/25 documented as of this encounter
--- OUTSIDE RECORDS SUMMARY | 2025-09-13 14:56 | XMS_ITS | Encounter Summary ---
Author Organization [employer] Address [address] [facility] 7t [place] [address] Care Team Providers Care Esthetician Name Role Phone Dariela Zapata MD Primary Care Provide r Sharon Lyon RN Unavailable [phone] Amelia Houston Unavailable Reason for Visit * Reason Comments Med Refill Encounter Details Date Type Department Care Team (Late st Contact Info) Description 11/09/2024 Refill [facility] [address] [place] [address] Dariela Zapata MD 230 [place], [place] [phone] Pain Social History Tobacco Use Types Packs/Day [...] Description 10/20/2025 9:00 AM EST Office Visit [facility] [address] [place] [address] Dariela Zapata MD [address] [place] [phone] documented as of this encounter Visit Diagnoses Diagnosis Pain Generalized pain documented in this encounter Additional Health Concerns Assessment Noted Time PHQ-9 Depression Total Score: 0 03/25/20 24 2:34 PM EDT documented as of this encounter Care Teams Esthetician Relationship Specialty Start Date End Date Dariela Zapata MD [address] [place] [address] PCP - General Family Medicine 10/14/19 Sharon Lyon RN [address] [place] [phone] Registered Nurse Family Medicine 07/31/25 Amelia Houston 07/31/25 documented as of this encounter
--- OUTSIDE RECORDS SUMMARY | 2025-09-13 14:56 | XMS_ITS | Encounter Summary ---
Author Organization [employer] Address [address] [facility] 7t [place] [address] Care Team Providers Care Melter Helper Name Role Phone Dariela Zapata MD Primary Care Provide r Sharon Lyon RN Unavailable [phone] Amelia Houston Unavailable Encounter Details Date Type Department Care Team ([facility] Contact Info) Description 09/10/2025 Patient Outreach [facility] [address] [place] [address] Dariela Zapata MD [address] [place] [address] Social History Tobacco Use Types Packs/Day Years [...] Description 10/20/2025 9:00 AM EST Office Visit [facility] [address] [place] [address] Dariela Zapata MD [address] [place] [address] documented as of this encounter Visit Diagnoses Not on filedocumented in this encounter Additional Health Concerns Assessment Noted Time PHQ-9 Depression Total Score: 6 07/15/20 25 9:19 AM EDT documented as of this encounter Care Teams Melter Helper Relationship Specialty Start Date End Date Dariela Zapata MD [address] [place] [address] PCP - General Family Medicine 10/14/19 Sharon Lyon RN [address] [place] [address] Registered Nurse Family Medicine 07/31/25 Amelia Houston 07/31/25 documented as of this encounter
--- OUTSIDE RECORDS SUMMARY | 2025-09-13 14:56 | XMS_ITS | Encounter Summary ---
Author Organization [facility] Address [address] [facility] 7t [place] [address] Care Team Providers Care Wireless Sales Expert Name Role Phone Dariela Zapata MD Primary Care Provide r Sharon Lyon RN Unavailable [phone] Amelia Houston Unavailable Encounter Details Date Type Department Care Team (Late st Contact Info) Description 07/24/2023 Orders Only [facility] [address] [place] [phone] Provider, Rajiv, Social History Tobacco Use Types [...] Encounters Date Type Department Care Team (Late Contact Info) Description 10/20/2025 9:00 AM EST Office Visit [facility] [address] [place] [address] Dariela Zapata MD 230 [place] [address] documented as of this encounter Procedures Procedure Name Priority Date/Time Associated Diagnosis Comments HM COLONOSCOPY Routine 10/26/2016 documented in this encounter Results * Hm Colonoscopy (10/26/2016) us Historical Provider HEALTH MAINTENANCE Final Result documented in this encounter Visit Diagnoses Not on filedocumented in this encounter Care Teams Wireless Sales Expert Relationship Specialty Start Date End Date Dariela Zapata MD 230 [place] [address] PCP - General Family Medicine 10/14/19 Sharon Lyon RN [address] [place] [address] Registered Nurse Family Medicine 07/31/25 Amelia Houston 07/31/25 documented as of this encounter
--- OUTSIDE RECORDS SUMMARY | 2025-09-13 14:56 | XMS_ITS | Clinical Summary ---
Author Organization [employer] Address [address] [facility] 7t [place] [address] Care Team Providers Care Instructor Modeling Name Role Phone Dariela Zapata MD Primary Care Provide r Sharon Lyon RN Unavailable [phone] Amelia Houston Unavailable Allergies Active Allergy [...] with complication, unspecified gastrointestinal tract location (CMS/HCC) (HCC) TAKE 2 CAPSULES BY MOUTH THREE TIMES [...] EVERY MORNING 90 tablet 1 025 Active chlorhexidine (Peridex) 0.12 % solution Swish 15 mL morning and night for 1 minute. Spit, do not swallow. Do not eat or drink for 30 minutes following use. 473 mL Active acetaminophen (Tylenol 8 Hour) 650 MG [...] BY MOUTH EVERY EVENING 90 tablet Active metoprolol tartrate (Lopressor) 50 MG tabletIndications:H ypertension, unspecified type TAKE 1 TABLET BY MOUTH TWICE DAILY IN THE MORNING AND IN THE EVENING 180 tablet Active zolpidem (Ambien) 10 MG tabletIndications:I nsomnia, [...] FOR 12 HOURS DIRECTED 30 patch 2 Active Zinc Oxide 10 % ointmentIndications :Perianal fistula due to Crohn's disease (CMS/HCC) (HCC) Apply 1 Application topically every 12 (twelve) hours if needed (appy on affected area). 85 g 2 Active polycarbophil (FiberCon) 625 MG tabletIndications:C rohn's disease of both small and large intestine with fistula (HCC) Take 1 tablet (625 mg) by mouth Once per day. 30 tablet 025 2025 Active lisinopril 20 MG tabletIndications:E ssential hypertension Take 1 tablet (20 mg) by mouth in the morning. 90 tablet 1 025 Active pantoprazole (ProtoNix) 40 MG EC tablet Take 1 tablet (40 mg) by mouth in the morning. Do not crush, chew, or split. 90 tablet 1 025 Active lisinopril 20 MG tabletIndications:E ssential hypertension TAKE 1 TABLET BY MOUTH EVERY MORNING 90 tablet 1 025 2024 Discontinued(R eorder (will not trigger notification to Pharmacy)) pantoprazole (ProtoNix) 40 MG EC tablet TAKE 1 TABLET BY MOUTH EVERY MORNING 90 tablet 1 025 2024 Discontinued(R eorder (will not trigger notification to Pharmacy)) Active Problems Problem Noted Date Diagnosed Date Perianal fistula due to Crohn's disease ([facility] ) 07/15/2025 Assessment & Plan (07/15/2025 10:02 AM [...] lidocaine patches Stage 3b chronic kidney disease ([facility]) 2024 Assessment & Plan (07/15/2025 10:06 AM EDT): [...] pulp 02/19/2025 Small bowel obstruction 10/16/2024 Pouchitis ([facility]) 10/16/2024 Crohn's disease of both small and large intestin e 10/16/2024 Inflammation of ileoanal pouch ([facility]) 024 Opioid use disorder 10/16/2024 Clostridium difficile carrier [...] nephrology Hypertensive renal disease 03/19/2021 Crohn's disease ([facility]) 06/23/2017 Assessment & Plan (07/15/2025 10:01 AM [...] Opioid dependence 06/23/2017 Hypertensive disorder 06/05/2013 Encounters * This document contains information received from the source organization and may not represent a complete record from that organization. Date Type Department Care Team Description 09/13/2025 Refill [facility] [address] [place] [address] Dariela Zapata MD Insomnia, unspecified type 09/12/2025 Refill [facility] [address] [place] [address] Dariela Zapata MD Essential hypertension 09/10/2025 Patient Outreach [address] [address] Dariela Zapata MD 08/13/2025 9:00 AM EDT Office Visit [address] [phone] Da Davis MD Uncomplicated opioid dependence (CMS/HCC) (HCC) (Primary Dx) 08/13/2025 Patient Outreach [address] [address] Dariela Zapata MD Care Management (C3CM- initial assessment/ enrollment) 08/13/2025 Travel 08/12/2025 Patient Outreach [address] [address] Leroy Guerra Recovery Supports 08/07/[address] [address] Dariela Zapata MD Dec recall 08/04/2025 Orders Only GENERIC EXTERNAL DATA DEPARTMENT Provider, Generic External Data 07/31/2025 Patient Outreach [address] [address] Dariela Zapata MD Care Coordination (CM/CHW outreach) 07/31/2025 Patient Outreach [address] [address] Dariela Zapata MD Care Coordination (CHW chart review) 07/31/2025 Patient Outreach [address] [address] Dariela Zapata MD Care Management ([facility]- chart review) 07/31/2025 Patient Outreach [address] [phone] Dariela Zapata MD 07/30/2025 Orders Only GENERIC EXTERNAL DATA DEPARTMENT Provider, Generic External Data 07/15/2025 9:30 AM EDT Office Visit [address] [address] Dariela Zapata MD Essential hypertension (Primary Dx); Crohn's disease of both small and large intestine with fistula (CMS/HCC); Perianal fistula due to Crohn's disease (CMS/HCC); Incontinence of feces, unspecified fecal incontinence type; Insomnia, unspecified type; Pain; Low back pain at multiple sites; Encounter for immunization; Stage 3b chronic kidney disease (CMS/HCC) 07/15/[address] [address] Dariela Zapata MD Durable Medical Equipment (DME Order: [employer]) 07/15/2025 Travel 07/11/2025 Telephone [facility] [address] [place], [place] [phone] Dariela Zapata MD Chart Prep 07/07/2025 Patient Outreach [address] [address] Dariela Zapata MD Care Coordination (CHW outreach SDOH pest control - LVM ) 07/07/2025 Patient Outreach [address] [address] Dariela Zapata MD Pre-visit Planning ((SDOH screening positive tobacco screening negative) ) 07/04/[address] [phone] Dariela Zapata MD Durable Medical Equipment 06/24/2025 8:00 AM EDT Office Visit [facility] [address] [place] [address] Aliji, Nunez Pain, dental (Primary Dx); Dental caries; Periapical abscess without sinus 06/23/2025 11:00 AM EDT Office Visit [facility] [address] [place] [address] Aliji, Nunez Pain, dental (Primary Dx) 06/20/2025 Refill [facility] [address] [place] [address] Dariela Zapata MD Low back pain at multiple sites 06/19/2025 Refill [facility] [address] [place] [address] Dariela Zapata MD Insomnia, unspecified type from Last 3 Months Immunizations Immunization Administration Dates Next Due Hep A, Adult 01/29/2020 Hep B, adult 09/23/2021,,12/04/2018,2017 Influenza Injectable Quadriv alant Preservative Free IIV4 [...] 07/15/2025 9:17 AM EDT Plan of Treatment Upcoming Encounters Date Type Department Care Team (Late st Contact Info) Description 10/20/2025 9:00 AM EST Office Visit [facility] [address] [place] [address] Dariela Zapata MD [address] [place] [address] Health Maintenance Due Date Last Done Comments [...] PROBLEM FOCUSED Routine 06/23/2025 11:00 AM EDT BITEWING - SINGLE RADIOGRAPHIC IMAGE [...] Blood Count 8.4 4.8 - 10.8 X10*3/uL [facility] Red Blood Count 3.67(L) 4.60 - 5.80 X10*6/uL [facility] Hemoglobin 10.8(L) 14.0 - 18.0 g/dl [facility] Hematocrit 34.2(L) 42.0 - 52.0 % [facility] Mean Corpuscular Volume 93.2 80.0 - 98.0 fL [facility] Mean Corpuscular Hemoglobin 29.4 27.0 - 33.0 pg [facility] Mean Corpuscular HGB Conc 31.6 31.0 - 36.0 g/dl [facility] Red Cell Distribution Width 14.2 11.0 - 16.0 % [facility] Platelet Count 278 160 - 400 X10*3/uL [facility] Mean Platelet Volume 9.8 9.4 - 12.4 fL [facility] Neutrophils Percent Auto 72.6 45 - 73 % [facility] Imm Gran Pct Auto 0.4 0.0 - 0.4 % [facility] Lymphocytes Percent Auto 17.6(L) 20 - 40 % [facility] Monocytes Percent Auto 7.3 2 - 11 % [facility] Eosinophils Percent Auto 1.7 0 - 4 % [facility] Basophils Percent Auto 0.4 0 - 2 % [facility] NRBC Pct Auto 0.0 0.0 - 0.2 /100WBC [facility] Neutrophils Absolute Auto 6.1 2.0 - 8.3 x10*3/uL [facility] Imm Gran Abs Auto 0.03 0.00 - 0.03 X10*3/uL [facility] Lymphocytes Absolute Auto 1.5 1.2 - 4.9 X10*3/uL [facility] Monocytes Absolute Auto 0.6 0.1 - 1.2 X10*3/uL [facility] Eosinophils Absolute Auto 0.1 0.0 - 0.4 X10*3/uL [facility] Basophils Absolute Auto 0.0 0.0 - 0.2 X10*3/uL [facility] NRBC Abs Auto 0.000 0.0 - 0.012 X10*3/uL [facility] 08/04/2025 3:50 PM EDT 08/04/2025 3:50 PM EDT us Generic External Data Provider LAB BLOOD ORDERAB LES Final Result [facility] [address] [place] [phone] * (ABNORMAL) C-reactive Protein (08/04/2025 3:50 PM EDT) Only the most recent of2 resultswithin the time period is included. C Reactive Protein 2.82(H) < or = 0.50 mg/dL [facility] 08/04/2025 3:50 PM EDT 08/04/2025 3:50 PM EDT Generic External Data Provider LAB BLOOD ORDERAB LES Final Result [facility] [address] [place] [address] [phone] * (ABNORMAL) Comprehensive Metabolic Panel (08/04/2025 3:50 PM EDT) Only the most recent of2 resultswithin the time period is included. Sodium 139 135 - 145 mmol/L [facility] Potassium 4.8 3.3 - 5.1 mmol/L [facility] Comment:Slight Hemolysis.Int erpret result with caution. Chloride 102 96 - 108 mmol/L [facility] Carbon Dioxide 28 22 - 29 mmol/L [facility] Anion Gap 14 12 - 20 [facility] Urea Nitrogen (BUN) 16 9 - 16 mg/dL [facility] Creatinine, Serum 1.76(H) 0.5 - 1.4 mg/dL [facility] Estimated Glomerular Filt Rate 40 [facility] Comment:Chronic Kidney Disea se: Estimated GFR < 60 mL/min/1.98v7Ymwica Kidney Disease: Estimated GFR < 15 mL/min/1.73m2 Glucose 79 60 - 115 mg/dL [facility] Calcium 9.4 8.4 - 10.2 mg/dL [facility] Bilirubin, Total 0.4 0.0 - 1.0 mg/dL [facility] Aspartate Amino Transferase 32 5 - 37 U/L [facility] Comment:Slight Hemolysis.Int erpret result with caution. Alanine Aminotransferase 15 0 - 40 U/L [facility] Total Protein 8.7(H) 6.5 - 8.0 g/dL [facility] Albumin Level 4.1 3.5 - 5.0 g/dL [facility] Alkaline Phosphatase 67 39 - 117 U/L [facility] 08/04/2025 3:50 PM EDT 08/04/2025 3:50 PM EDT Generic External Data Provider LAB BLOOD ORDERAB LES Final Result Performing Organization Address [facility] Co de Phone Number [facility] [address] [place] [address] [phone] * (ABNORMAL) Sed Rate by Modified Falguniren (07/30/2025 12:32 PM EDT) Erythrocyte Sedimentation Rate 64(H) 0 - 15 MM/HR [facility] Comment:Patients with polycy themia and many hemoglobin abnormalitiesmay have depressed sed rates whereas patients with anemiamay have elevated sed rates. 07/30/2025 12:3 2 PM EDT 07/30/2025 12:40 PM EDT Generic External Data Provider LAB BLOOD ORDERAB LES Final Result Performing Organization Address [facility] Co de Phone Number [facility] [address] [place] [phone] * Hepatitis C Antibody with Reflex to HCV, RNA, Quantitative, Real-Time PCR (05/13/2024 9:05 AM EDT) Pathologist [facility] Hepatitis C Antibody Nonreactive Nonreactive [facility] Comment:Antibodies to HCV no t detected; does not exclude early acuteHCV infection. Blood Venous blood specimen / Unknown 05/13/2024 9:05 AM EDT 05/13/2024 11:43 AM EDT us Dariela Scott MD LAB BLOOD ORDERABLES Final Result Performing Organization Address [facility]/ZIP Co de Phone Number [facility] [address] [place] [address] [phone] * (ABNORMAL) Lipid Panel, Standard (05/13/2024 9:05 AM EDT) Triglycerides 310(H) <150 mg/dL [facility] Comment:Desirable Triglyceri de: less than 150 mg/dLBorderline High Triglyceride 150-199 mg/dLHigh Triglyceride: 200-499 mg/dLVery High Triglyceride: greater than or equal to 5OO mg/dL Cholesterol 320(H) <200 mg/dL [facility] Comment:Desirable Cholestero l: less than 200 mg/dLBorderline High Cholesterol: 200-239 mg/dLHigh Cholesterol: greater than 239 mg/dL LDL Cholesterol Calculated 223(H) <100 mg/dL [facility] Comment:Desirable LDL: less than 100 mg/dLNear Optimal/Above Optimal LDL: 110- 129 mg/dLBorderline High LDL: 130-159 mg/dLHigh LDL: 160-189 mg/dLVery High LDL: greater than or equal to 190 mg/dL HDL Cholesterol 35(L) >40 mg/dL [facility] Comment:Desirable HDL: great er than 40 mg/dL Note: This HDL assay may give artificially low results in patients with liver disease. Blood Venous blood specimen / Unknown 05/13/2024 9:05 AM EDT 05/13/2024 11:39 AM EDT us Dariela Scott MD LAB BLOOD ORDERABLES Final Result [facility] [address] [place] [phone] * Colonoscopy (10/26/2016) Historical Provider HEALTH MAINTENANCE Final Result from Last 3 Months or Most Recently Relevant to Health Maintenance Insurance [id number] [employer] Care Teams Instructor Modeling Relationship Specialty Start Date End Date Dariela Zapata MD [address] [place] [address] PCP - General Family Medicine 10/14/19 Sharon Lyon RN [address] [place] [address] Registered Nurse Family Medicine 07/31/25 Amelia Houston 07/31/25
--- OUTSIDE RECORDS SUMMARY | 2025-09-13 14:56 | XMS_ITS | Encounter Summary ---
Author Organization [employer] Address [address] [facility] 7t [place] [address] Care Team Providers Care Cost Manager Name Role Phone Dariela Zapata MD Primary Care Provide r Sharon Lyon RN Unavailable Amelia Houston Unavailable Reason for Visit * Reason Onset Date Comments mail appt slip 03/11/2025 Encounter Details Date Type Department Care Team (Late st Contact Info) Description 03/11/2025 Telephone [facility] [address] [place] [address] Leroy Joel DDS [address] [place] [address] mail appt slip Social History Tobacco Use [...] Description 10/20/2025 9:00 AM EST Office Visit [facility] [address] [place] [phone] Dariela Zapata MD [address] [place] [address] documented as of this encounter Visit Diagnoses Not on filedocumented in this encounter Additional Health Concerns Assessment Noted Time PHQ-9 Depression Total Score: 0 03/25/20 24 2:34 PM EDT documented as of this encounter Care Teams Cost Manager Relationship Specialty Start Date End Date Dariela Zapata MD [address] [place] [phone] PCP - General Family Medicine 10/14/19 Sharon Lyon RN [address] [place] [phone] Registered Nurse Family Medicine 07/31/25 Amelia Houston 07/31/25 documented as of this encounter
--- OUTSIDE RECORDS SUMMARY | 2025-09-13 14:56 | XMS_ITS | Encounter Summary ---
Author Organization [employer] [facility] Address [address] [place] [address] 7t [place] [address] Care Team Providers Care Grinding Wheel Facer Name Role Phone Dariela Zapata MD Primary Care Provide r Sharon Lyon RN Unavailable [phone] Amelia Houston Unavailable Reason for Visit * Reason Comments Med Refill Encounter Details Date Type Department Care Team (Late st Contact Info) Description 07/06/2023 Refill [facility] MEDICINE [address] [place] [address] [phone] Dariela Zapata MD [address] [place] [address] [phone] Insomnia, unspecified type Social History Tobacco Use [...] Description 10/20/2025 9:00 AM EST Office Visit [facility] [address] [place] [address] [phone] Dariela Zapata MD [address] [place] [address] [phone] documented as of this encounter Visit Diagnoses Diagnosis Insomnia, unspecified type documented in this encounter Care Teams Grinding Wheel Facer Relationship Specialty Start Date End Date Dariela Zapata MD 230 [place] [address] PCP - General Family Medicine 10/14/19 Sharon Lyon RN [address] [place] [address] Registered Nurse Family Medicine 07/31/25 Amelia Houston 07/31/25 documented as of this encounter
--- OUTSIDE RECORDS SUMMARY | 2025-09-13 14:56 | XMS_ITS | Encounter Summary ---
Author Organization [employer] Address [address] 7t [place] [address] Care Team Providers Care Pie Filling Mixer Name Role Phone Dariela Zapata MD Primary Care Provide r Sharon Lyon RN Unavailable [phone] Amelia Houston Unavailable Encounter Details Date Type Department Care Team ([facility] st Contact Info) Description 09/16/2024 Orders Only [facility] WALK-IN CENTER [address] [place] [address] Dariela Zapata MD 230 [place] [address] Social History Tobacco Use Types Packs/Day Years [...] Description 10/20/2025 9:00 AM EST Office Visit [facility] MEDICINE [address] [place], [place] [phone] Dariela Zapata MD 230 [place], [place] [phone] documented as of this encounter Procedures Procedure [...] AM EST Narrative 09/24/2024 10:47 AM EST [address] [address] XRay Report Signed Patient: Jayden Pierce MR#: [id number] : 1965 Acct:[id number] Age/Sex: 59 / M ADM Date: 09/24/24 Loc: .ED Attending Dr: Ordering Physician: Generic ED Physician Date of Service: 09/24/24 Procedure(s): XR chest 1V Accession Number(s): [id number] cc: Dariela Zapata MD; Generic ED Physician [...] by: Rojelio Julien MD 09/24/2024 10:44 AM [facility] Dictated By: Rojelio Julien MD Signed By: <Electronically signed by Rojelio Julien MD in OV> 09/24/24 1044 DD/ 1028 TD/TT: 09/24/24 1030 Night Shift: Procedure Note Donotuseinterpreter, Image - 09/24/[address] [address] XRay Report Signed Patient: Toshia PierceR#: [id number] : 1965Acct:[id number] Age/Sex: 59 / MADM Date: 09/24/24 Loc: .ED Attending Dr: Ordering Physician: Generic ED Physician Date of Service: 09/24/24 Procedure(s): XR chest 1V Accession Number(s): [id number] cc: Dariela Zapata MD; Generic ED Physician [...] 09/24/24 1044 DD/ 1028 TD/TT: 09/24/24 1030 Night Shift: [facility] External Provider IMG XR PROCEDURES Final Result * SARS-CoV-2 RNA, Influenza A/B, and RSV RNA, Ql NAAT (09/24/2024 10:25 AM EST) Influenza A PCR NEGATIVE Negative [facility] Influenza B PCR NEGATIVE Negative [facility] Resp Syncy Virus RNA Qual PCR NEGATIVE Negative [facility] SARS COV2 PCR NEGATIVE Negative [facility] Comment:All test results mus t [...] use by authorized laboratories.Testing performed on the [employer] GeneXpert utilizingreal-time RT-PCR.All SARS CoV2 and positive influenza A/B results arereported to [facility] AT [facility]. 09/24/2024 10:2 5 AM EST 09/24/2024 10:28 AM EST us Generic External Data Provider LAB MICROBIOLOGY - GENERAL ORDERABLES Final Result [facility] [address] [place] [address] [phone] documented in this encounter Visit Diagnoses Not on filedocumented in this encounter Additional Health Concerns Assessment Noted Time PHQ-9 Depression Total Score: 0 03/25/20 24 2:34 PM EDT documented as of this encounter Care Teams Pie Filling Mixer Relationship Specialty Start Date End Date Dariela Zapata MD 230 [place] [address] PCP - General Family Medicine 10/14/19 Sharon Lyon RN 505 [place] [address] Registered Nurse Family Medicine 07/31/25 Amelia Houston 07/31/25 documented as of this encounter
--- OUTSIDE RECORDS SUMMARY | 2025-09-13 14:56 | XMS_ITS | Encounter Summary ---
Author Organization [employer] Address [address] [facility] 7t [place] [address] Care Team Providers Care Maintenance Technician 2Nd Shift Name Role Phone Dariela Zapata MD Primary Care Provide r Sharon Lyon RN Unavailable [phone] Amelia Houston Unavailable Reason for Visit * Reason Onset Date Comments Med Refill 07/23/2024 Encounter Details Date Type Department Care Team (Late st Contact Info) Description 07/23/2024 Telephone [facility] [address] [place] [address] Dariela Zapata MD 230 [place], [place] [phone] Med Refill Social History Tobacco Use Types [...] with others, in a hotel, in a half-way, living outside on the street, on a [...] 5 % patch To be sent to: [facility] [place], [place] - [address] [facility] documented in this encounter Plan of Treatment Upcoming Encounters Date Type Department Care Team ([facility] st Contact Info) Description 10/20/2025 9:00 AM EST Office Visit [facility] [address] [place] [address] Dariela Zapata MD [address] [place] [address] documented as of this encounter Visit Diagnoses Not on filedocumented in this encounter Additional Health Concerns Assessment Noted Time PHQ-9 Depression Total Score: 0 03/25/20 24 2:34 PM EDT documented as of this encounter Care Teams Maintenance Technician 2Nd Shift Relationship Specialty Start Date End Date Dariela Zapata MD [address] [place] [address] PCP - General Family Medicine 10/14/19 Sharon Lyon RN [address] [place] [address] Registered Nurse Family Medicine 07/31/25 Amelia Houston 07/31/25 documented as of this encounter
--- OUTSIDE RECORDS SUMMARY | 2025-09-13 14:56 | XMS_ITS ---
Author Organization [employer] Address 75 [facility] 7t [place] [address] Care Team Providers Care Lithographer Helper Name Role Phone Dariela Zapata MD Primary Care Provide r Sharon Lyon RN Unavailable [phone] Amelia Houston Unavailable CHW Complex Status:Outreach In Progress (Enrolling) Start date:07/31/2025 Enrollment reason:ADT Feed Overview ED- Pt went to [facility] on 07/30/25. Please outreach for enrollment. Case Team Name Relationship Phone Amelia Houston(Responsible Staff) [phone] Continued Care and Services Coordination
--- OUTSIDE RECORDS SUMMARY | 2025-09-13 14:56 | XMS_ITS | Encounter Summary ---
Author Organization [employer] Address 75 [facility] 7t [place] [address] Care Team Providers Care Youth Coordinator Name Role Phone Dariela Zapata MD Primary Care Provide r Sharon Lyon RN Unavailable [phone] Amelia Houston Unavailable Reason for Visit * Reason Onset Date Comments Med Refill 01/22/2024 Encounter Details Date Type Department Care Team (Late st Contact Info) Description 01/22/2024 Telephone [facility] MEDICINE 230 [place] [address] Dariela Zapata MD 230 [place], [place] [phone] Med Refill Social History Tobacco Use Types Packs/Day Years Used Date Smoking Tobacco: Never Assessed Housing Stability Answer Date Recorded What is your housing situation today? I do not have housing (Staying with others, in a hotel, in a group home, living outside on the street, on [...] 10 MG tablet To be sent to: [facility] - [place], [place] - [address] [place] [address] documented in this encounter Plan of Treatment Upcoming Encounters Date Type Department Care Team (Late st Contact Info) Description 10/20/2025 9:00 AM EST Office Visit [facility] [address] [place] [address] Dariela Zapata MD [address] [place] [address] documented as of this encounter Visit Diagnoses Not on filedocumented in this encounter Care Teams Youth Coordinator Relationship Specialty Start Date End Date Dariela Zapata MD [address] [place] [address] PCP - General Family Medicine 10/14/19 Sharon Lyon, NEGRO [address] [place] [address] [place] [address] Registered Nurse Family Medicine 07/31/25 Amelia Houston 07/31/25 documented as of this encounter
--- OUTSIDE RECORDS SUMMARY | 2025-09-13 14:56 | XMS_ITS | Encounter Summary ---
Author Organization [employer] Address 75 [facility] 7t [place] [address] Care Team Providers Care Oracle Soa Developer Name Role Phone Dariela Zapata MD Primary Care Provide r Sharon Lyon RN Unavailable [phone] Amelia Houston Unavailable Reason for Visit * Reason Comments Med Refill Encounter Details Date Type Department Care Team (Late st Contact Info) Description 01/17/2024 Refill [facility] MEDICINE 230 [place] [address] Dariela Zapata MD 230 [place], [place] [phone] Low back pain at multiple sites; Pain; [...] Description 10/20/2025 9:00 AM EST Office Visit [facility] MEDICINE [address] [place] [phone] Dariela Zapata MD 230 [place] [address] documented as of this encounter Visit Diagnoses Diagnosis Low back pain at multiple sites Pain Generalized pain Crohn's disease with complication, unspecified gastrointestinal tract location (CMS/HCC) (HCC) Insomnia, unspecified type documented in this encounter Care Teams Oracle Soa Developer Relationship Specialty Start Date End Date Dariela Zapata MD 230 [place] [address] PCP - General Family Medicine 10/14/19 Sharon Lyon RN [address] [place] [address] Registered Nurse Family Medicine 07/31/25 Amelia Houston 07/31/25 documented as of this encounter
--- OUTSIDE RECORDS SUMMARY | 2025-09-13 14:56 | XMS_ITS | Encounter Summary ---
Author Organization [employer] Address 75 [facility] 7t [place] [address] Care Team Providers Care Supervisor Beet End Name Role Phone Dariela Zapata MD Primary Care Provide r Sharon Lyon RN Unavailable [phone] Amelia Houston Unavailable Encounter Details Date Type Department Care Team (Late st Contact Info) Description 01/14/2025 Orders Only [facility] MEDICINE 230 [place] [address] Dariela Zapata MD 230 [place], [place] [phone] Social History Tobacco Use Types Packs/Day Years [...] Description 10/20/2025 9:00 AM EST Office Visit [facility] MEDICINE [address] [place] [address] Dariela Zapata MD 230 [place] [address] documented as of this encounter Visit Diagnoses Not on filedocumented in this encounter Additional Health Concerns Assessment Noted Time PHQ-9 Depression Total Score: 0 03/25/20 24 2:34 PM EDT documented as of this encounter Care Teams Supervisor Beet End Relationship Specialty Start Date End Date Dariela Zapata MD 230 [place] [address] PCP - General Family Medicine 10/14/19 Sharon Lyon RN [address] [place] [address] Registered Nurse Family Medicine 07/31/25 Amelia Houston 07/31/25 documented as of this encounter
--- OUTSIDE RECORDS SUMMARY | 2025-09-13 14:56 | XMS_ITS | Encounter Summary ---
Author Organization [employer] Address 75 [facility] 7t [place] [address] Care Team Providers Care Backhoe Operator Name Role Phone Dariela Zapata MD Primary Care Provide r Sharon Lyon RN Unavailable [phone] Amelia Houston Unavailable Reason for Visit * Reason Onset Date Comments Durable Medical Equipment 07/04/2025 Encounter Details Date Type Department Care Team (Late st Contact Info) Description 07/04/2025 Telephone [facility] MEDICINE 230 [place] [address] Dariela Zapata MD 230 [place], [place] [phone] Durable Medical Equipment Social History Tobacco Use [...] when hehas to go Contact pt at [phone] (tajik) documented in this encounter Plan of Treatment Upcoming Encounters Date Type Department Care Team (Late st Contact Info) Description 10/20/2025 9:00 AM EST Office Visit [facility] MEDICINE 230 [place] [address] Dariela Zapata MD [address] [place] [address] documented as of this encounter Visit Diagnoses Not on filedocumented in this encounter Additional Health Concerns Assessment Noted Time PHQ-9 Depression Total Score: 0 03/25/20 24 2:34 PM EDT documented as of this encounter Care Teams Backhoe Operator Relationship Specialty Start Date End Date Dariela Zapata MD [address] [place] [address] PCP - General Family Medicine 10/14/19 Sharon Lyon, NEGRO 505 [place] [address] Registered Nurse Family Medicine 07/31/25 Amelia Houston 07/31/25 documented as of this encounter
--- OUTSIDE RECORDS SUMMARY | 2025-09-13 14:56 | XMS_ITS ---
Author Organization [employer] Address 75 [facility] 7t [place] [address] Care Team Providers Care Residential Child Care Counselor Name Role Phone Dariela Zapata MD Primary Care Provide r Sharon Lyon RN Unavailable [phone] Amelia Houston Unavailable CM Complex Status:Outreach In Progress (Enrolling) Start date:07/31/2025 Enrollment reason:ADT Feed Overview ED- Pt went [place] [facility] [place]. Case Team Name Relationship Phone Sharon Lyon RN(Responsible Staff) Registered Nurse [phone] Continued Care and Services Coordination
--- OUTSIDE RECORDS SUMMARY | 2025-09-13 14:56 | XMS_ITS | Encounter Summary ---
Author Organization [employer] Address 75 [facility] 7t [place] [address] Care Team Providers Care Glove Former Name Role Phone Dariela Zapata MD Primary Care Provide r Sharon Lyon RN Unavailable [phone] Amelia Houston Unavailable Reason for Visit * Reason Comments Med Refill Encounter Details Date Type Department Care Team (Late st Contact Info) Description 01/08/2024 Refill [facility] MEDICINE 230 [place] [address] Dariela Zapata MD [address] [place], [place] [phone] Low back pain at multiple sites Social History Tobacco Use Types Packs/Day Years Used Date Smoking Tobacco: Never Assessed Housing Stability Answer Date Recorded What is your housing situation today? I do not have housing (Staying with others, in a hotel, in a fpc, living outside on the street, on a [...] Description 10/20/2025 9:00 AM EST Office Visit [facility] MEDICINE [address] [place] [address] Dariela Zapata MD [address] [place] [address] documented as of this encounter Visit Diagnoses Diagnosis Low back pain at multiple sites documented in this encounter Care Teams Glove Former Relationship Specialty Start Date End Date Dariela Zapata MD 230 [place] [address] PCP - General Family Medicine 10/14/19 Sharon Lyon, RN [address] [place] [address] Registered Nurse Family Medicine 07/31/25 Amelia Houston 07/31/25 documented as of this encounter
--- OUTSIDE RECORDS SUMMARY | 2025-09-13 14:56 | XMS_ITS | Encounter Summary ---
Author Organization [employer] Address 75 [facility] 7t [place] [address] Care Team Providers Care Headstart Teacher Name Role Phone Dariela Zapata MD Primary Care Provide r Sharon Lyon RN Unavailable [phone] Amelia Houston Unavailable Encounter Details Date Type Department Care Team (Late st Contact Info) Description 02/28/2023 Orders Only [facility] MED & PEDS [address] [place] [address] Celena Cannon LPN Social History Tobacco Use [...] Description 10/20/2025 9:00 AM EST Office Visit [facility] MEDICINE 230 [place] [address] Dariela Zapata MD 230 [place] [address] documented as of this encounter Visit Diagnoses Not on filedocumented in this encounter Care Teams Headstart Teacher Relationship Specialty Start Date End Date Dariela Zapata MD [address] [place] [address] [phone] PCP - General Family Medicine 12/2/19 Sharon Lyon, NEGRO [address] [place] [address] Registered Nurse Family Medicine 07/31/25 Amelia Houston 07/31/25 documented as of this encounter
--- OUTSIDE RECORDS SUMMARY | 2025-09-13 14:56 | XMS_ITS | Encounter Summary ---
Author Organization [employer] Address 75 [facility] 7t [place] [address] Care Team Providers Care Baffle Mounter Name Role Phone Dariela Zapata MD Primary Care Provide r Sharon Lyon RN Unavailable [phone] Amelia Houston Unavailable Reason for Referral * Imaging (Routine) - Closed Specialty Diagnoses / Procedures Referred By Contac t Referred To Contact Radiology Diagnoses Abnormal CXR Procedures CT Chest w/o Contrast Rayne Fierro MD [address] [place] [address] Phone: tel: fax: [address] Phone: tel: fax: Referral ID Status Reason Start Date Expiration Date Visits Re quested Visits Authorized [id number] Closed 10/18/2024 10/18/2025 1 1 Encounter Details Date Type Department Care Team (Late st Contact Info) Description 10/18/2024 Orders Only [facility] MEDICINE 230 [place], [place] [phone] Rayne Fierro MD [address] [place] [address] [phone] Abnormal CXR (Primary Dx) Social History Tobacco [...] Description 10/20/2025 9:00 AM EST Office Visit [facility] MEDICINE [address] [place] [address] Dariela Zapata MD [address] [place] [address] Scheduled Orders Name Type Priority Associated Diagnoses [...] documented as of this encounter Care Teams Baffle Mounter Relationship Specialty Start Date End Date Dariela Zapata MD 230 [place] [address] PCP - General Family Medicine 10/14/19 Sharon Lyon RN [address] [place] [address] Registered Nurse Family Medicine 07/31/25 Amelia Houston 07/31/25 documented as of this encounter
--- OUTSIDE RECORDS SUMMARY | 2025-09-13 14:56 | XMS_ITS | Encounter Summary ---
Author Organization [employer] Address 75 [facility] 7t [place] [address] Care Team Providers Care Daycare Worker Name Role Phone Dariela Zapata MD Primary Care Provide r Sharon Lyon RN Unavailable [phone] Amelia Houston Unavailable Reason for Visit * Reason Comments Med Refill Encounter Details Date Type Department Care Team (Late st Contact Info) Description 01/15/2024 Refill [facility] MED & PEDS [address] [place], [place] [phone] Dariela Zapata MD 230 [place] [address] Pain; Crohn's disease with complication, unspecified gastrointestinal tract location (CMS/HCC) Social History Tobacco Use Types Packs/Day Years Used Date Smoking Tobacco: Never Assessed Housing Stability Answer Date Recorded What is your housing situation today? I do not have housing (Staying with others, in a hotel, in a skilled nursing, living outside on the street, on a [...] Description 10/20/2025 9:00 AM EST Office Visit [facility] MEDICINE [address] [place] [address] Dariela Zapata MD 230 [place] [address] documented as of this encounter Visit Diagnoses Diagnosis Pain Generalized pain Crohn's disease with complication, unspecified gastrointestinal tract location (CMS/HCC) (HCC) documented in this encounter Care Teams Daycare Worker Relationship Specialty Start Date End Date Dariela Zapata MD 230 [place] [address] PCP - General Family Medicine 10/14/19 Sharon Lyon RN [address] [place] [address] Registered Nurse Family Medicine 07/31/25 Amelia Houston 07/31/25 documented as of this encounter
--- OUTSIDE RECORDS SUMMARY | 2025-09-13 14:56 | XMS_ITS | Encounter Summary ---
Author Organization [employer] Address 75 [facility] 7t [place] [address] Care Team Providers Care Millwright Instructor Name Role Phone Dariela Zapata MD Primary Care Provide r Sharon Lyon RN Unavailable [phone] Amelia Houston Unavailable Encounter Details Date Type Department Care Team ([facility] st Contact Info) Description 09/12/2025 Refill [facility] MEDICINE [address] [place] [address] Dariela Zapata MD 230 [place], [place] [phone] Essential hypertension Social History Tobacco Use Types Packs/Day Years [...] AM EST Office Visit [facility] MEDICINE [address] [place] [address] Dariela Zapata MD [address] [place] [address] documented as of this encounter Visit Diagnoses Diagnosis Essential hypertension Unspecified essential hypertension documented in this encounter Additional Health Concerns Assessment Noted Time PHQ-9 Depression Total Score: 6 07/15/20 25 9:19 AM EDT documented as of this encounter Care Teams Millwright Instructor Relationship Specialty Start Date End Date Dariela Zapata MD [address] [place] [address] PCP - General Family Medicine 10/14/19 Sharon Lyon RN [address] [place] [address] Registered Nurse Family Medicine 07/31/25 Amelia Houston 07/31/25 documented as of this encounter
--- OUTSIDE RECORDS SUMMARY | 2025-09-13 14:56 | XMS_ITS | Encounter Summary ---
Author Organization [employer] Address 75 [facility] 7t [place] [address] Care Team Providers Care High Risk Ob Name Role Phone Dariela Zapata MD Primary Care Provide r Sharon Lyon RN Unavailable [phone] Amelia Houston Unavailable Reason for Visit * Reason Comments Med Refill Encounter Details Date Type Department Care Team (Late st Contact Info) Description 01/11/2024 Refill [facility] MEDICINE [address] [place] [address] Dariela Zapata MD 230 [place], [place] [phone] Insomnia, unspecified type; Pain; Crohn's disease with [...] Visit [facility] MEDICINE [address] [place] [phone] Dariela Zapata MD [address] [place] [address] documented as of this encounter Visit Diagnoses Diagnosis Insomnia, unspecified type Pain Generalized pain Crohn's disease with complication, unspecified gastrointestinal tract location (CMS/HCC) (HCC) documented in this encounter Care Teams High Risk Ob Relationship Specialty Start Date End Date Dariela Zapata MD [address] [place] [address] PCP - General Family Medicine 10/14/19 Sharon Lyon RN [address] [place] [address] Registered Nurse Family Medicine 07/31/25 Amelia Houston 07/31/25 documented as of this encounter
--- OUTSIDE RECORDS SUMMARY | 2025-09-13 14:56 | XMS_ITS | Encounter Summary ---
Author Organization [employer] Address [address] [facility] [address] [address] Care Team Providers Care Elevator Repairer Apprentice Name Role Phone Dariela Zapata MD Primary Care Provide r Sharon Lyon RN Unavailable [phone] Amelia Houston Unavailable Reason for Visit * Reason Comments Med Refill Encounter Details Date Type Department Care Team (Late st Contact Info) Description 11/10/2024 Refill [facility] [address] [place] [address] Dariela Zapata MD [address] [place], [place] [phone] Insomnia, unspecified type Social History Tobacco Use [...] Upcoming Encounters Date Type Department Care Team ([facility] st Contact Info) Description 10/20/2025 9:00 AM EST Office Visit [facility] [address] [place] [phone] Dariela Zapata MD [address] [place] [address] documented as of this encounter Visit Diagnoses Diagnosis Insomnia, unspecified type documented in this encounter Additional Health Concerns Assessment Noted Time PHQ-9 Depression Total Score: 0 03/25/20 24 2:34 PM EDT documented as of this encounter Care Teams Elevator Repairer Apprentice Relationship Specialty Start Date End Date Dariela Zapata MD [address] [place] [address] PCP - General Family Medicine 10/14/19 Sharon Lyon RN [address] [place] [phone] Registered Nurse Family Medicine 07/31/25 Amelia Houston 07/31/25 documented as of this encounter
--- OUTSIDE RECORDS SUMMARY | 2025-09-13 14:57 | XMS_ITS | Clinical Summary ---
Author Organization [facility] Address [address] [facility] [address] [place] [address] Phone Care Team Providers Care Voip Network Technician Name Role Phone Lucy Bryant MD Primary [...] complete this topic Insurance Medicaid [place] Medicaid [place] Care Teams Voip Network Technician Relationship Specialty Start Date End Date Lucy Bryant MD PCP - General 11/23/20
--- OUTSIDE RECORDS SUMMARY | 2025-09-13 14:57 | XMS_ITS | Encounter Summary ---
Author Organization [employer] Address [address] [facility] 7[address] [place] [address] Care Team Providers Care Cotton Acreage Measurer Name Role Phone Dariela Zapata MD Primary Care Provide r Sharon Lyon RN Unavailable [phone] Amelia Houston Unavailable Reason for Visit * Reason Onset Date Comments Med Refill 11/21/2024 Encounter Details Date Type Department Care Team (Late st Contact Info) Description 11/21/2024 Telephone [facility] [address] [place] [address] Dariela Zapata MD [address] [place], [place] [phone] Med Refill Social History Tobacco Use Types [...] AM EST Gabapentin and tylenol sent to [facility] on 11/20/24. Ambien pended to PCP. * Telephone Encounter - Gretchen Phillips - 11/21/2024 8:13 AM EST TC from pt requesting medication refill. Medications needing refill :gabapentin (Neurontin) 300 MG capsule zolpidem (Ambien) 10 MG tablet acetaminophen (Tylenol 8 Hour) 650 MG ER tablet To be sent to: [facility] documented in this encounter Plan of Treatment Upcoming Encounters Date Type Department Care Team (Late st Contact Info) Description 10/20/2025 9:00 AM EST Office Visit [facility] [address] [place] [address] Dariela Zapata MD [address] [place] [address] documented as of this encounter Visit Diagnoses Not on filedocumented in this encounter Additional Health Concerns Assessment Noted Time PHQ-9 Depression Total Score: 0 03/25/20 24 2:34 PM EDT documented as of this encounter Care Teams Cotton Acreage Measurer Relationship Specialty Start Date End Date Dariela Zapata MD [address] [place] [address] PCP - General Family Medicine 10/14/19 Sharon Lyon RN [address] [place] [phone] Registered Nurse Family Medicine 07/31/25 Amelia Houston 07/31/25 documented as of this encounter
--- OUTSIDE RECORDS SUMMARY | 2025-09-13 14:57 | XMS_ITS | Encounter Summary ---
Author Organization [employer] Address [address] [place] [address] 7t [place] [address] Care Team Providers Care Airfreight Operations Agent Name Role Phone Dariela Zapata MD Primary Care Provide r Sharon Lyon RN Unavailable [phone] Amelia Houston Unavailable Encounter Details Date Type Department Care Team (Late st Contact Info) Description 01/16/2023 Orders Only [facility] [address] [place] [phone] Rayne Fierro MD [address] [place] [phone] Low back pain at multiple sites (Primary [...] Description 10/20/2025 9:00 AM EST Office Visit [facility] [address] [place] [phone] Dariela Zapata MD [address] [place], [place] [phone] documented as of this encounter Procedures Procedure [...] at multiple sites HEPATIC FUNCTION PANEL Routine 12:20 PM EDT Low back pain at multiple sites COMPREHENSIVE METABOLIC PANEL Routine 02/17/2023 12:20 PM EDT Low back pain at multiple sites documented in this encounter Results * COVID-19 ID NOW (BETANCOURT) (02/17/2023 1:07 PM EDT) IDNOW SERIAL# [id number] [facility] COVID-19 TEST Negative Negative [facility] COVID-19 NOTE See Note [facility] Comment: Results are for the identification of SARS-CoV2 RNA. TheSARS-CoV2 RNA is generally detectable in respiratory samplesduring the acute phase of infection. Positive results areindicative of the presence of SARS-CoV-2 RNA; clinicalcorrelation with patient history and other diagnosticinformation is necessary to determine patient infectionstatus. Positive results do not rule out bacterial infectionor co- infection with other viruses.Testing facilities within the [facility] and itsterritories are required to report all [...] use by authorized laboratories.Testing performed on the InOpen ID NOW utilizing NAAT. 02/17/2023 1:07 PM EDT 02/17/2023 1:09 PM EDT [facility] Exter nal Provider LAB MOLECULAR DIAGNOSTICS ORDERABLES Final Result Performing Organization Address [facility] de Phone Number [facility] [address] [place] [phone] * Sodium Without creatinine, Random Urine (02/17/2023 12:33 PM EDT) Sodium Urine Random <20.0 mmol/L [facility] 02/17/2023 12:3 3 PM EDT 02/17/2023 2:21 PM EDT [facility] External Provider LAB BLO OD ORDERABLES Final Result Performing Organization Address [facility] Co de Phone Number [facility] [address] [place] [phone] * Creatinine, Random Urine (02/17/2023 12:33 PM EDT) Creatinine, Urine 379.60 mg/dL [facility] 02/17/2023 12:3 3 PM EDT 02/17/2023 2:21 PM EDT [facility] External Provider LAB URI NE ORDERABLES Final Result Performing Organization Address [facility] Co de Phone Number [facility] [address] [place] [phone] * (ABNORMAL) Urinalysis, Complete, with Reflex to Culture (02/17/2023 12:33 PM EDT) Color Urine Dark Yellow [facility] Appearance Urine Cloudy [facility] PH 5.0 5.0 - 9.0 [facility] Glucose Urine UA Negative Negative mg/dL [facility] Urine Blood Small (1+)(A) Negative [facility] Specific [place] - Urine 1.020 1.005 - 1.025 [facility] Urine Protein 100 (2+)(A) Neg-Trace mg/dL [facility] Urine Ketones Trace Negative mg/dL [facility] Nitrite Urine Negative Negative [facility] Leukocyte Esterase Urine Negative Negative [facility] RBC Urine 0-2 0 - 2 /HPF [facility] Urine WBC 0-5 0 - 5 /HPF [facility] Urine Squamous Epithelial Cell 6-10 0 - 2 /HPF [facility] Other Crystals Urine Present [facility] Urine Bacteria None Seen None Seen [facility] Hyaline Casts, Urine 11-20 0 - 2 /LPF [facility] 02/17/2023 12:3 3 PM EDT 02/17/2023 12:42 PM EDT Narrative [facility] - 02/17/2023 12:54 PM EDT [id number], Clean Catch us [facility] External Provider LAB URI NE ORDERABLES Final Result [facility] [address] [place] [phone] [phone] * (ABNORMAL) Phosphate (As Phosphorus) (02/17/2023 12:20 PM EDT) Phosphorus 5.9(H) 2.7 - 4.5 mg/dL [facility] 02/17/2023 12:2 0 PM EDT 02/17/2023 12:24 PM EDT [facility] External Provider LAB BLO OD ORDERABLES Final Result Performing Organization Address [facility] Co de Phone Number [facility] [address] [place] [phone] * (ABNORMAL) Lipase (02/17/2023 12:20 PM EDT) Lipase 286(H) 8 - 78 U/L [facility] 02/17/2023 12:2 0 PM EDT 02/17/2023 12:24 PM EDT [facility] External Provider LAB BLO OD ORDERABLES Final Result Performing Organization Address [facility] Phone Number [facility] [address] [place] [phone] * Hepatic Function Panel (02/17/2023 12:20 PM EDT) Bilirubin, Direct 0.3 0.0 - 0.5 mg/dL [facility] 02/17/2023 12:2 0 PM EDT 02/17/2023 12:24 PM EDT [facility] External Provider LAB BLO OD ORDERABLES Final Result Performing Organization Address [facility] de Phone Number [facility] [address] [place] [phone] * (ABNORMAL) Comprehensive Metabolic Panel (02/17/2023 12:20 PM EDT) Sodium 133(L) 135 - 145 mmol/L [facility] Potassium 4.0 3.3 - 5.1 mmol/L [facility] Chloride 104 96 - 108 mmol/L [facility] Carbon Dioxide 16(L) 22 - 29 mmol/L [facility] Anion Gap 17 12 - 20 [facility] Urea Nitrogen (BUN) 79(H) 9 - 16 mg/dL [facility] Creatinine, Serum 10.12(HH) 0.5 - 1.4 mg/dL [facility] Comment:Critical value for C RES: Results called to and read clarisse MAHAJAN Person calling: RAGHAV Date: 02/17/23 Time: 1245 Creatinine Clr Calc Pharmacy 9.5 [facility] Comment:eGFR (calculated fro m the MDRD study equation) and eCrCl(calculated from the Cockcroft-Gault equation) are based ondifferent parameters and may not yield comparable results.If eCrCl result is absurd, please check patient'sheight/weight. Estimated Glomerular Filt Rate 5 [facility] Comment:NOTE: For -Am erican individuals, multiply the result by 1.210.Chronic Kidney Disease: Estimated GFR < 60 mL/min/[id number] Kidney Disease: Estimated GFR < 15 mL/min/1.73m2 Glucose 113 60 - 115 mg/dL [facility] Calcium 8.1(L) 8.4 - 10.2 mg/dL [facility] Bilirubin, Total 0.7 0.0 - 1.0 mg/dL [facility] Aspartate Amino Transferase 43(H) 5 - 37 U/L [facility] Alanine Aminotransferase 30 0 - 40 U/L [facility] Total Protein 7.9 6.5 - 8.0 g/dL [facility] Albumin Level 4.0 3.5 - 5.0 g/dL [facility] Alkaline Phosphatase 92 39 - 117 U/L [facility] 02/17/2023 12:2 0 PM EDT 02/17/2023 12:24 PM EDT us [facility] External Provider LAB BLO OD ORDERABLES Final Result [facility] [address] [place] [phone] [phone] documented in this encounter Visit Diagnoses Diagnosis Low back pain at multiple sites- Primary documented in this encounter Care Teams Airfreight Operations Agent Relationship Specialty Start Date End Date Barciona Scott, Angle, MD [address] [place] [address] PCP - General Family Medicine 10/14/19 Sharon Lyon, NEGRO [address] [place] [address] Registered Nurse Family Medicine 07/31/25 Amelia Houston 07/31/25 documented as of this encounter
[2025-09-13 14:58] VITALS: BP 129/70; PULSE 71; RESP 18; TEMP 37.1; O2SAT 99
[2025-09-13 15:28] LABS: MANUAL DIFF FLAG NO
[2025-09-13 15:36] LABS: Hematocrit 34.4 % (42.0-52.0); Hemoglobin 10.5 g/dl (14.0-18.0); Imm Gran Abs Auto 0.03 X10*3/uL (0.00-0.03); Imm Gran Pct Auto 0.4 % (0.0-0.4); Lymphocytes Absolute Auto 1.6 X10*3/uL (1.2-4.9); Mean Corpuscular HGB Conc 30.5 g/dl (31.0-36.0); Mean Corpuscular Hemoglobin 29.7 pg (27.0-33.0); Mean Corpuscular Volume 97.2 fL (80.0-98.0); NRBC Abs Auto 0.000 X10*3/uL (0.0-0.012); NRBC Pct Auto 0.0 /100WBC (0.0-0.2); Platelet Count 157 X10*3/uL (160-400); Red Blood Count 3.54 X10*6/uL (4.60-5.80); White Blood Count 7.3 X10*3/uL (4.8-10.8)
[2025-09-13 15:55] LABS: Anion Gap 13 (12-20); Blood Urea Nitrogen 51 mg/dL (9-16); Calcium 8.4 mg/dL (8.4-10.2); Carbon Dioxide 21 mmol/L (22-29); Chloride 111 mmol/L (96-108); Creatinine Clr Calc Pharmacy 24.3; Estimated Glomerular Filt Rate 17; Magnesium 1.3 mg/dL (1.6-2.6); Potassium 4.5 mmol/L (3.3-5.1); Sodium 140 mmol/L (135-145)
[2025-09-13 16:00] LABS: Troponin-I High Sensitivity 6.1 ng/L (<3.5-35.0)
[2025-09-13 16:24] LABS: Appearance Urine Clear; Glucose Urine UA Negative (Negative); PH 5.0 (5.0-9.0); Specific Gravity - Urine 1.015 (1.005-1.025); UMIC TRIGGER UACC YES
[2025-09-13 16:40] LABS: NT Pro B Type Natriuretic Pept 130.0 pg/mL (<300)
--- NOTE | 2025-09-13 16:40 | ED.CHESTPAIN ---
HPI - Chest Pain General Chief Complaint: Chest Pain Stated Complaint: CHEST PAIN Time Seen by Provider: 09/13/25 16:01 Source: patient, EMS and old records reviewed Mode of arrival: EMS Limitations: no limitations History of Present Illness ED Provider: DESIRAE HPI narrative: 60 yo male wtih PMH of HTN, HLD, GERD, opiate use disorder on methadone, CKD, Crohns on asacol (pouchitis in past, chronic ileocolitis, c diff carrier, sp reversal of ileostomy, total colectomy) now here with 1 week of diarrhea numerous episodes, as well as upper abdominal and R sided abdominal pain. He feels warm. He has seen blood but only on toilet paper. He notes his rectum is very sore and irritated. He denies recent travel, food exposures, sick contacts, abx use. He states he gets this. He follows with Dr. Silva. He states his Crohns medications do not help. He states he is compliant with all medications. MD complaint: other (abd pain) Pertinent past history: other Onset (ago): week(s) (1) Timing of current episode: constant Prior episodes: Yes Onset: during rest Pain location: epigastric Pain radiation: none Severity: severe Quality: aching and dull Relieving factors: nothing Exacerbating factors: other Context: recent illness Associated symptoms: other (diarrhea, rectal pain, weakness) Treatment prior to arrival: none Related Data Home Medications ?Medication ?Instructions ?Recorded ?Confirmed metoprolol tartrate 50 mg tablet 50 mg PO BID 03/03/21 08/18/25 rosuvastatin 40 mg tablet 40 mg PO BEDTIME 03/03/21 08/18/25 zolpidem 10 mg tablet 1 tab PO BEDTIME 03/03/21 08/18/25 ferrous gluconate 324 mg (38 mg 1 tab PO DAILY 06/30/21 08/18/25 iron) tablet lidocaine 5 % topical patch 1 patch topical DAILY 08/20/21 08/18/25 cyanocobalamin (vitamin B-12) 1 tab PO DAILY 07/07/22 08/18/25 1,000 mcg tablet gabapentin 300 mg capsule 300 mg PO TID 02/17/23 08/18/25 methadone 10 mg/mL oral concentrate 50 mg PO DAILY 02/17/23 05/08/25 lisinopril 20 mg tablet 20 mg PO DAILY 11/01/24 08/18/25 pantoprazole 40 mg tablet,delayed 40 mg PO DAILY@0630 11/01/24 08/18/25 release acetaminophen 650 mg 650 mg PO Q8H PRN mild pain 05/07/25 08/18/25 tablet,extended release felodipine 5 mg tablet,extended 5 mg PO BEDTIME 05/07/25 08/18/25 release 24 hr mesalamine 400 mg capsule (with 800 mg PO TID 05/07/25 08/18/25 delayed release tablets inside) calcium polycarbophil 625 mg 625 mg PO DAILY 08/04/25 08/18/25 tablet (Fiber-Lax) Previous Rx's ?Medication ?Instructions ?Recorded loperamide 2 mg tablet (Imodium 2 mg PO Q8H PRN loose stool #30 10/27/23 A-D) tabs pramoxine 1 % topical foam 1 appl SD TID 7 days #15 grams 07/30/25 (Proctofoam) amoxicillin 500 mg-potassium 1 tab PO TID #21 tabs 08/04/25 clavulanate 125 mg tablet (Augmentin) menthol 0.44 %-zinc oxide 20.6 % 1 appl topical QID PRN skin 08/04/25 topical ointment (Calmoseptine) irritation #113 grams miscellaneous medical supply #1 ea 08/04/25 Allergies Allergy/AdvReac Type Severity Reaction Status Date / Time Iodinated Contrast Media (IV Allergy Intermediate HIVES Verified 09/13/25 14:02 CONTRAST) prednisone (PREDNISONE) Allergy Mild RASH Verified 09/13/25 14:02 Review of Systems Review of Systems: Constitutional :No Fever, pos Chills ENT/Mouth : No sore throat, No Rhinorrhea Eyes: No Swelling, No Redness Cardiovascular : No Chest Pain, No SOB, NoEdema Respiratory : No Cough, No Sputum, No Wheezing Gastrointestinal : Positive Nausea, no Vomiting, positive Diarrhea, positive abdominal Pain, No Hematochezia, No Melena Genitourinary : No Dysuria, No Urinary Frequency, No Hematuria, No Urgency Musculoskeletal : No joint pain, No Myalgias, No Joint Swelling Skin : pos Skin Lesions, No rash Neuro : No Weakness, No Numbness, No Dizziness, No Headache All other systems reviewed and are negative. [facility] Past Medical History Attestation statement: The following information was validated with the patient. Source: old records reviewed Medical History Clostridium difficile carrier Opioid use disorder Constipation Crohn's disease of both small and large intestine CKD (chronic kidney disease) Ulcerative colitis HLD (hyperlipidemia) Colitis HTN (hypertension) Surgical History History of esophagogastroduodenoscopy (EGD) Hx of colonoscopy H/O total colectomy H/O cervical spine surgery History of colostomy reversal Family History Family History Mother Stroke Diabetes mellitus HTN (hypertension), benign Hyperlipidemia Brother Diabetes mellitus Social History Social History Household Members: None Housing: Apartment Housing Other:: Rents a room Do you presently have visiting nurse or other home services: No Alcohol intake: former Comment: Chirag Patient Tobacco Use Status: Never used Tobacco Smoked in Last 30 Days: No e-Cigarette/Vaping Use: Never Used Second Hand Smoke Exposure: No Use of substances other than those prescribed or required for medical reasons: No Substance Use Type: Heroin Advance Directives: Yes Advance Directives on File: Yes Advance Directives Date on File: 03/08/21 Do you have a plan to hurt others: No Plan service: No Current occupational status: unemployed Physical Exam Vital Signs: Vital Signs: Last Vital Signs Temp 98.1 F 09/13/25 18:41 Pulse 67 09/13/25 18:41 Resp 14 09/13/25 18:41 BP 157/76 H 09/13/25 18:41 Pulse Ox 98 09/13/25 18:41 O2 Del Method Room Air 09/13/25 18:41 BMI result Body Mass Index 30.9 Appearance: Alert. Oriented X3. No acute distress. Eyes: Pupils equal, round and reactive to light. ENT: Pharynx normal. Neck: Normal inspection. Neck supple. CVS: Normal heart rate and rhythm. Pulses normal. Respiratory: No respiratory distress. Breath sounds normal. Abdomen: Soft and no distention, mild ttp in periumbilical area has multiple old scars, he also has rectal exam with excoriations indurated area and mucosal inflammation and diffuse ttp Skin: Skin warm and dry. Normal skin color. Extremities: No lower extremity edema. Neuro: Oriented X 3. No motor deficit. No sensory deficit. CN2-12 intact Medications Administered Discontinued Medications Generic Name Dose Route Start Last Admin Trade Name Evie PRN Reason Stop Dose Admin Hydromorphone HCl 1 mg 09/13/25 16:42 09/13/25 17:12 Hydromorphone Hcl 1 Mg/Ml Syringe IVPUSH 09/13/25 16:43 1 mg ONCE ONE Administration Protocol Magnesium Sulfate/Dextrose 1 gm in 100 mls @ 300 mls/hr 09/13/25 16:03 09/13/25 17:33 Magnesium Sulfate/D5w IV 09/13/25 16:22 Infused ONCE ONE Infusion Lactated Ringer's 1,000 mls @ 999 mls/hr 09/13/25 16:39 09/13/25 17:15 Lr IV 09/13/25 17:39 999 mls/hr .Q1H1M ONE Administration Metronidazole 500 mg in 100 mls @ 100 mls/hr 09/13/25 16:39 09/13/25 18:17 Flagyl IV 09/13/25 17:38 Infused ONCE ONE Infusion Medical Decision Making Medical Decision Making [facility] Narrative: 60 yo male wtih PMH of HTN, HLD, GERD, opiate use disorder on methadone, CKD, Crohns on asacol (pouchitis in past, chronic ileocolitis, c diff carrier, sp reversal of ileostomy, total colectomy now here with diarrhea, rectal pain signs of proctitis vs fistula I am going to obtain labs, lactic acid, cultures, start on IVF, IV dilaudid for pain control, empiric flagyl and obtain CT scan for any worsening disease/abscess. He is aware of plan Differential Diagnosis Differential Diagnoses: The differential diagnosis associated with the presentation includes proctitis, crohns, perianal fistula Admission/Observation Consideration of admission/observation: Escalation of care including admission/observation considered admit for CITLALY on CKD, proctitis, crohns Consult Healthcare Provider Management of the patient was discussed with: Hospitalist and Eligibility Clerk hospitalist to admit Dr. Lopez aware will see in AM Lab Data [facility] Lab Attestation statement: I reviewed the patient's lab results. 09/13/25 15:22 09/13/25 15:22 Labs: Lab Results 09/13/25 09/13/25 09/13/25 Range/Units 15:22 16:05 16:10 WBC 7.3 (4.8-10.8) X10*3/uL RBC 3.54 L (4.60-5.80) X10*6/uL Hgb 10.5 L (14.0-18.0) g/dl Hct 34.4 L (42.0-52.0) % MCV 97.2 (80.0-98.0) fL MCH 29.7 (27.0-33.0) pg MCHC 30.5 L (31.0-36.0) g/dl RDW 16.4 H (11.0-16.0) % Plt Count 157 L D (160-400) X10*3/uL MPV 9.7 (9.4-12.4) fL Immature Gran % (Auto) 0.4 (0.0-0.4) % Neut % (Auto) 61.8 (45-73) % Lymph % (Auto) 21.7 (20-40) % [place] % (Auto) 11.7 H (2-11) % Eos % (Auto) 4.1 H (0-4) % Baso % (Auto) 0.3 (0-2) % Lymph # (Auto) 1.6 (1.2-4.9) X10*3/uL [place] # (Auto) 0.9 (0.1-1.2) X10*3/uL Eos # (Auto) 0.3 (0.0-0.4) X10*3/uL Baso # (Auto) 0.0 (0.0-0.2) X10*3/uL Abs Immat Gran (auto) 0.03 (0.00-0.03) X10*3/uL Absolute Neuts (auto) 4.5 (2.0-8.3) x10*3/uL Absolute Nucleated RBC 0.000 (0.0-0.012) X10*3/uL Nucleated RBC % (auto) 0.0 (0.0-0.2) /100WBC Sodium 140 (135-145) mmol/L Potassium 4.5 (3.3-5.1) mmol/L Chloride 111 H (96-108) mmol/L Carbon Dioxide 21 L (22-29) mmol/L Anion Gap 13 (12-20) BUN 51 H (9-16) mg/dL Creatinine 3.67 H (0.5-1.4) mg/dL Estim Creat Clear Calc 24.3 Estimated GFR 17 Random Glucose 112 (60-115) mg/dL Lactic Acid 0.9 (0.5-2.0) mmol/L Calcium 8.4 D (8.4-10.2) mg/dL Magnesium 1.3 L* (1.6-2.6) mg/dL Troponin I High Sens 6.1 (<3.5-35.0) ng/L NT-Pro-B Natriuret Pep 130.0 (<300) pg/mL Urine Color Yellow Urine Appearance Clear Urine pH 5.0 (5.0-9.0) Ur Specific [place] 1.015 (1.005-1.025) Urine Protein 30 (1+) H (Neg-Trace) mg/dL Urine Glucose (UA) Negative (Negative) mg/dL Urine Ketones Negative (Negative) mg/dL Urine Blood Negative (Negative) Urine Nitrite Negative (Negative) Ur Leukocyte Esterase Negative (Negative) Urine RBC 0-2 (0-2) /HPF Urine WBC 0-5 (0-5) /HPF Ur Squamous Epith Cells 0-2 (0-2) /HPF Urine Bacteria None Seen (None Seen) Hyaline Casts 0-2 (0-2) /LPF Independent Interpretation I performed an independent interpretation of an: EKG and CT Scan (perirectal abscess) Interpretation: Rate: 75 Rhythm: NSR [place]: left Normal P waves. Normal MARIA DE JESUS. Normal QRS complex. ST T wave : no PILAR, t wave inversion III qTC: 460 prior studies: no acute ischemia The study has been interpreted contemporaneously by me. . Radiology Impression Discussion of test interpretation with radiology: I have reviewed the radiologist's reading. Independent Historian Clinical information obtained from an independent historian. History obtained from or confirmed by: EMS External Record Review External record reviewed: Outpatient record Critical Care Time Critical Care Time Critical Care Time: Yes Total Critical Care Time: 35 Attestation: Time is exclusive of separately billable procedures. Time includes: direct patient care, patient reassessment, coordination of patient care, interpretation of data (laboratory data, pulse oximetry, arterial blood gases and CT scans), review of patient's medical records, medical consultation and documentation of patient care. IV magnesium admin. Procedures excluded from critical care time: electrocardiography. I attest to this time spent taking care of the patient Discharge Plan Discharge Clinical Impression: Crohn's colitis, Acute kidney injury superimposed on chronic kidney disease, Hypomagnesemia, Abscess, perirectal Patient Disposition: Admitted As Inpatient Print Language: Korean
[2025-09-13] MEDS: metroNIDAZOLE/NS 500 MG/100 ML PIGGYBACK 100 MG IV (17:15)
[2025-09-13] MEDS: Lactated Ringers 1,000 ML 999 ML IV (17:15)
[2025-09-13 18:41] VITALS: BP 157/76; PULSE 67; RESP 14; TEMP 36.7; O2SAT 98
--- NOTE | 2025-09-13 20:13 | PM.IMHP ---
History of Present Illness Date of Service: 09/13/25 Attending physician on admission: Gideon Wilkerson Chief Complaint: Diarrhea Jayden Pierce is a 60 years old man with past medical history significant for Crohn's disease status post total colectomy and colectomy reversal on Anacol, chronic ileocolitis, opiate use disorder on methadone, c.diff and CKD stage 3B presents to the emergency department complaining of nonbloody watery diarrhea over the last 3 days. He does complain of associated irritation of the perirectal area. He reported suggestive fever, chills and generalized abdominal cramp. He denied any headache, palpitations, dizziness or loss of consciousness. He denied any acute cardiopulmonary, gastrointestinal or genitourinary symptoms. He does not recall the name of his medications. In the ED, he was found to have stable vital signs. Blood workup was showed no leukocytosis. There is no lactic acidosis. Hemoglobin is 10.5 and at baseline. Platelets are 157. There are no significant electrolyte imbalances except for hyperchloremia and CO2 21, BUN 51 and creatinine 3.67. Magnesium is 1.3. Troponin 6.1 and pro BNP 130. Urinalysis is unremarkable, but protein 1+. Abdomen and pelvis CT scan without contrast showed a new 1.7 cm perirectal abscess. CXR is negative. ECG showed normal sinus rhythm without acute ischemic changes. ED tx: Magnesium 1 g IV, NS 1 L bolus, metronidazole 500 mg IV, Dilaudid 1 g IV, Zosyn 3.75 mg IV Review of Systems Review of Systems: All 12 systems were reviewed and normal except as noted in HPI. [facility] Medical History Clostridium difficile carrier Opioid use disorder Constipation Crohn's disease of both small and large intestine CKD (chronic kidney disease) Ulcerative colitis HLD (hyperlipidemia) Colitis HTN (hypertension) Family History Mother Stroke Diabetes mellitus HTN (hypertension), benign Hyperlipidemia Brother Diabetes mellitus Surgical History History of esophagogastroduodenoscopy (EGD) Hx of colonoscopy H/O total colectomy H/O cervical spine surgery History of colostomy reversal Social History Household Members: None Housing: Apartment Housing Other:: Rents a room Do you presently have visiting nurse or other home services: No Alcohol intake: former Comment: Chirag Patient Tobacco Use Status: Never used Tobacco Smoked in Last 30 Days: No e-Cigarette/Vaping Use: Never Used Second Hand Smoke Exposure: No Use of substances other than those prescribed or required for medical reasons: No Substance Use Type: Heroin Advance Directives: Yes Advance Directives on File: Yes Advance Directives Date on File: 03/08/21 Do you have a plan to hurt others: No Plan service: No Current occupational status: unemployed Meds Allergies Allergy/AdvReac Type Severity Reaction Status Date / Time Iodinated Contrast Media (IV Allergy Intermediate HIVES Verified 09/13/25 14:02 CONTRAST) prednisone (PREDNISONE) Allergy Mild RASH Verified 09/13/25 14:02 Active Medications: Current Medications Acetaminophen (Acetaminophen 325 Mg Tablet) 975 mg PO Q6H PRN PRN Reason: Pain, Mild 1-3,fever,headache Calcium Carbonate (Calcium Carbonate 750 Mg Tab.Chew) 750 mg PO Q4H PRN PRN Reason: Heartburn Enoxaparin Sodium (Enoxaparin Sodium 40 Mg/0.4 Ml Syringe) 40 mg SUBCUT Q24H MELVI Hydromorphone HCl (Hydromorphone Hcl 0.5 Mg/0.5 Ml Syringe) 0.5 mg IVPUSH Q4H PRN; Protocol PRN Reason: Pain, Severe (Pain Scale 7-10) Magnesium Hydroxide (Milk Of Magnesia 30 Ml Oral.Susp) 30 ml PO DAILY PRN PRN Reason: Constipation Melatonin (Melatonin 3 Mg Tablet) 6 mg PO BEDTIME PRN PRN Reason: Insomnia Sodium Chloride (0.9 % Sodium Chloride Flush 3 Ml Syringe) 3 ml IVFLUSH QSHIFT [facility] Home Medications ?Medication ?Instructions ?Recorded ?Confirmed ?Last Taken ?Type metoprolol tartrate 50 mg tablet 50 mg PO BID 03/03/21 08/18/25 05/06/25 History rosuvastatin 40 mg tablet 40 mg PO BEDTIME 03/03/21 08/18/25 05/06/25 History zolpidem 10 mg tablet 1 tab PO BEDTIME 03/03/21 08/18/25 05/06/25 History ferrous gluconate 324 mg (38 mg 1 tab PO DAILY 06/30/21 08/18/25 05/06/25 History iron) tablet lidocaine 5 % topical patch 1 patch topical DAILY 08/20/21 08/18/25 05/06/25 History cyanocobalamin (vitamin B-12) 1 tab PO DAILY 07/07/22 08/18/25 05/06/25 History 1,000 mcg tablet gabapentin 300 mg capsule 300 mg PO TID 02/17/23 08/18/25 05/06/25 History methadone 10 mg/mL oral concentrate 50 mg PO DAILY 02/17/23 05/08/25 05/07/25 History lisinopril 20 mg tablet 20 mg PO DAILY 11/01/24 08/18/25 05/06/25 History pantoprazole 40 mg tablet,delayed 40 mg PO DAILY@0630 11/01/24 08/18/25 05/06/25 History release acetaminophen 650 mg 650 mg PO Q8H PRN mild pain 05/07/25 08/18/25 Unknown History tablet,extended release felodipine 5 mg tablet,extended 5 mg PO BEDTIME 05/07/25 08/18/25 05/06/25 History release 24 hr mesalamine 400 mg capsule (with 800 mg PO TID 05/07/25 08/18/25 05/06/25 History delayed release tablets inside) calcium polycarbophil 625 mg 625 mg PO DAILY 08/04/25 08/18/25 Unknown History tablet (Fiber-Lax) Physical Exam Vital Signs and Narrative: Vital Signs: Last Vital Signs Temp 98.1 F 09/13/25 18:41 Pulse 67 09/13/25 18:41 Resp 14 09/13/25 18:41 BP 157/76 H 09/13/25 18:41 Pulse Ox 98 09/13/25 18:41 O2 Del Method Room Air 09/13/25 18:41 BMI result Body Mass Index 30.9 General: Alert, oriented, in no acute distress. Well nourished and cooperative. Afebrile. HEENT: Head normocephalic, atraumatic. PER, EOMI. Sclerae anicteric, conjunctiva clear. Dry oral mucosa. Neck: Supple, no lymphadenopathy, or JVD. Heart: RRR, no murmurs, rubs or gallops. Lungs: Clear to auscultation bilaterally. No wheezes, rales, or rhonchi. Normal respiratory effort. Abdomen: Soft, generalized tenderness to palpation without rebound or guarding, nondistended, normoactive bowel sounds. Extremities: No calf tenderness bilaterally, no swelling Musculoskeletal: Full range of motion. No joint swelling, deformity, or tenderness. Normal muscle tone and strength. Skin: Warm/Dry. No pallor. No jaundice. Neurologic: Alert & oriented x4. Moving all extremities spontaneously. Normal speech. Psychological: Normal mood and affect. Thought process coherent. Results Labs 09/13/25 15:22 09/13/25 15:22 Labs: Laboratory Results - last 24 hr 09/13/25 09/13/25 09/13/25 15:22 16:05 16:10 MCV 97.2 MCH 29.7 MCHC 30.5 L RDW 16.4 H Plt Count 157 L D MPV 9.7 Immature Gran % (Auto) 0.4 Neut % (Auto) 61.8 Lymph % (Auto) 21.7 [place] % (Auto) 11.7 H Eos % (Auto) 4.1 H Baso % (Auto) 0.3 Lymph # (Auto) 1.6 [place] # (Auto) 0.9 Eos # (Auto) 0.3 Baso # (Auto) 0.0 Abs Immat Gran (auto) 0.03 Absolute Neuts (auto) 4.5 Absolute Nucleated RBC 0.000 Nucleated RBC % (auto) 0.0 Anion Gap 13 Estim Creat Clear Calc 24.3 Estimated GFR 17 Random Glucose 112 Lactic Acid 0.9 Calcium 8.4 D Magnesium 1.3 L* Troponin I High Sens 6.1 NT-Pro-B Natriuret Pep 130.0 Urine Color Yellow Urine Appearance Clear Urine pH 5.0 Ur Specific [place] 1.015 Urine Protein 30 (1+) H Urine Glucose (UA) Negative Urine Ketones Negative Urine Blood Negative Urine Nitrite Negative Ur Leukocyte Esterase Negative Urine RBC 0-2 Urine WBC 0-5 Ur Squamous Epith Cells 0-2 Urine Bacteria None Seen Hyaline Casts 0-2 Assessment and Plan (1) Abscess, perirectal: Status: Acute (2) Acute kidney injury superimposed on chronic kidney disease: Status: Acute (3) Hypomagnesemia: Status: Acute Plan Jayden Pierce is a 60 y/o man with PMHx significant for Crohn's disease s/p total colectomy and colectomy reversal on Anacol, chronic ileocolitis, who presents with: Perirectal abscess. Continue empiric IV antibiotic therapy with Zosyn IV. IV fluids. Blood cultures obtained-will follow results. Surgery consult -Dr. Lopez contacted by ED. Diarrhea. Avoid antidiarrheal meds for now until GI panel results. Doubt C diff as the patient has total colectomy. Hypomagnesemia, likely secondary to poor intake and diarrhea. Replete as needed. Continue to monitor. Acute on chronic renal injury, likely due to diarrhea. Continue IV fluids. Continue to monitor renal function. Avoid nephrotoxic agents. Opiate use disorder. Continue methadone. Hyperlipidemia. Continue statin. Essential hypertension. Continue metoprolol and felodipine. Code status: Full DVT prophylaxis: Lovenox *med rec pending Patient will need hospitalization for at least 2 midnights for perirectal abscess treatment with incision and drainage by surgery and empiric IV antibiotic therapy, patient also need IV fluids and close monitoring of renal function. This documentation was generated using dictation software; minor spreading or plug wirer errors may be present. Quality Stroke Does the patient have a stroke diagnosis?: No VTE Prior VTE?: No VTE Risk Level:: Medical - moderate - high VTE Device Contraindication: Treatment Not Indicated VTE Drug Contraindication: N/A - Med Ordered
[2025-09-13] MEDS: Lactated Ringers 1,000 ML 150 ML IVCONT (20:43)
[2025-09-13 20:48] VITALS: BP 137/73; PULSE 73; RESP 14; O2SAT 98
[2025-09-14] VITALS (11 sets, daily range): BP systolic 134–196; BP diastolic 74–106; PULSE 60–80; RESP 12–18; TEMP 35.7–36.7; O2SAT 94–100; BMI 34.5
[2025-09-14 03:51] LABS: Hematocrit 31.8 % (42.0-52.0); Hemoglobin 10.0 g/dl (14.0-18.0); Imm Gran Abs Auto 0.02 X10*3/uL (0.00-0.03); Imm Gran Pct Auto 0.4 % (0.0-0.4); Lymphocytes Absolute Auto 1.5 X10*3/uL (1.2-4.9); MANUAL DIFF FLAG NO; Mean Corpuscular HGB Conc 31.4 g/dl (31.0-36.0); Mean Corpuscular Hemoglobin 29.9 pg (27.0-33.0); Mean Corpuscular Volume 95.2 fL (80.0-98.0); NRBC Abs Auto 0.000 X10*3/uL (0.0-0.012); NRBC Pct Auto 0.0 /100WBC (0.0-0.2); Platelet Count 143 X10*3/uL (160-400); Red Blood Count 3.34 X10*6/uL (4.60-5.80); White Blood Count 5.2 X10*3/uL (4.8-10.8)
[2025-09-14 04:09] LABS: Anion Gap 12 (12-20); Blood Urea Nitrogen 41 mg/dL (9-16); Calcium 8.1 mg/dL (8.4-10.2); Carbon Dioxide 20 mmol/L (22-29); Chloride 109 mmol/L (96-108); Creatinine Clr Calc Pharmacy 29.5; Estimated Glomerular Filt Rate 21; Magnesium 1.3 mg/dL (1.6-2.6); Potassium 4.3 mmol/L (3.3-5.1); Sodium 137 mmol/L (135-145)
[2025-09-14] MEDS: Magnesium Sulfate/H2O 2 GM/50 ML PIGGYBACK IV (04:26)
--- NOTE | 2025-09-14 05:09 | PC.NURSE ---
Assumed care of patient at 0000 in ED OVF. Patient is alert and oriented x 3, mostly gabonese speaking, calm and cooperative. Utilizing urinal at the bedside and ambulating to the bathroom, steady gait. No complaints of pain. At approx 0409, patient had critical mag 1.3, provider notified and ordered 2g mag sulf, currently infusing. Bed in lowest setting, locked and alarmed. Call maria within reach. Patient awaiting med surg bed assignment.
--- NOTE | 2025-09-14 07:36 | PHA.MEDREC ---
Pharmacy Consult ? Medication Reconciliation Pharmacy has completed the medication reconciliation. Patient does not know his medications. Gets med box from [facility], Utilized [facility] claims.
--- NOTE | 2025-09-14 08:12 | PC.NURSE ---
Med rec list completed. Message sent to Dr. Marte regarding ordering daily medications. Pt is pacing around the unit despite bed alarm. Refusing changeover into hospital attire.
--- NOTE | 2025-09-14 08:18 | P.PNIM_ITS ---
Subjective Subjective Date of Service: 09/14/25 Interval History: rectal abcess Review of Systems Says pain is improving No fever. Review of Systems: Yes all other systems are reviewed and are negative Physical Exam 2 Exam: Exam: Appearance: Alert.? Oriented X3.? cvs: rrr, [id number] , no murmur res: clear to auscultation ,no rhonchii or wheezing abd: no rebound or guarding ,nt, bs present. rectal: As per surgical exam note: skin breakdown perianal area from his diarrhea with tenderness ext pulses present , no cyanosis. neuro: axo3 , nonfocal. Vital Signs: Vital Signs: Last Vital Signs Temp 98.0 F 09/14/25 05:24 Pulse 60 09/14/25 05:24 Resp 14 09/14/25 05:24 BP 151/74 H 09/14/25 05:24 Pulse Ox 94 09/14/25 05:24 O2 Del Method Room Air 09/14/25 05:24 BMI result Body Mass Index 30.9 Objective Data Active Medications Acetaminophen (Acetaminophen 325 Mg Tablet) 975 mg PO Q6H PRN PRN Reason: Pain, Mild 1-3,fever,headache Atorvastatin Calcium (Atorvastatin Calcium 80 Mg Tablet) 80 mg PO BEDTIME MELVI Calcium Carbonate (Calcium Carbonate 750 Mg Tab.Chew) 750 mg PO Q4H PRN PRN Reason: Heartburn Cyanocobalamin (Cyanocobalamin (Vitamin B-12) 1,000 Mcg Tablet) mcg PO DAILY MELVI Enoxaparin Sodium (Enoxaparin Sodium 40 Mg/0.4 Ml Syringe) 40 mg SUBCUT Q24H MELVI Gabapentin (Gabapentin 300 Mg Capsule) 300 mg PO TID MELVI Hydromorphone HCl (Hydromorphone Hcl 0.5 Mg/0.5 Ml Syringe) 0.5 mg IVPUSH Q4H PRN; Protocol PRN Reason: Pain, Severe (Pain Scale 7-10) Last Admin: 09/13/25 20:42 Dose: 0.5 mg Documented By: ANDER Piperacillin Sod/Tazobactam (Sod 3.375 gm/ Sodium Chloride) 50 mls @ 100 mls/hr IV Q6H [facility] Last Infusion: 09/14/25 07:08 Dose: Infused Documented By: ALBERTO Magnesium Hydroxide (Milk Of Magnesia 30 Ml Oral.Susp) 30 ml PO DAILY PRN PRN Reason: Constipation Melatonin (Melatonin 3 Mg Tablet) 6 mg PO BEDTIME PRN PRN Reason: Insomnia Metoprolol Tartrate (Metoprolol Tartrate 50 Mg Tablet) 50 mg PO BID MELVI; Protocol Non-Formulary Medication (Felodipine) 5 mg PO BEDTIME [facility] Non-Formulary Medication (Ferrous Gluconate) 1 tab PO DAILY [facility] Non-Formulary Medication (Lidocaine) 1 patch TOPICAL DAILY [facility] Non-Formulary Medication (Pantoprazole) 40 mg PO DAILY@0630 [facility] Sodium Chloride (0.9 % Sodium Chloride Flush 3 Ml Syringe) 3 ml IVFLUSH QSHIFT [facility] Last Admin: 09/13/25 23:58 Dose: Not Given Documented By: PAUL Non-Admin Reason: IV Running Zolpidem Tartrate (Zolpidem Tartrate 5 Mg Tablet) 10 mg PO BEDTIME [facility] Labs 09/14/25 03:44 09/14/25 03:44 Labs: Laboratory Results - last 24 hr 09/13/25 09/13/25 09/13/25 15:22 16:05 16:10 MCV 97.2 MCH 29.7 MCHC 30.5 L RDW 16.4 H Plt Count 157 L D MPV 9.7 Immature Gran % (Auto) 0.4 Neut % (Auto) 61.8 Lymph % (Auto) 21.7 [place] % (Auto) 11.7 H Eos % (Auto) 4.1 H Baso % (Auto) 0.3 Lymph # (Auto) 1.6 [place] # (Auto) 0.9 Eos # (Auto) 0.3 Baso # (Auto) 0.0 Abs Immat Gran (auto) 0.03 Absolute Neuts (auto) 4.5 Absolute Nucleated RBC 0.000 Nucleated RBC % (auto) 0.0 Anion Gap 13 Estim Creat Clear Calc 24.3 Estimated GFR 17 Random Glucose 112 Lactic Acid 0.9 Calcium 8.4 D Magnesium 1.3 L* Troponin I High Sens 6.1 NT-Pro-B Natriuret Pep 130.0 Urine Color Yellow Urine Appearance Clear Urine pH 5.0 Ur Specific [place] 1.015 Urine Protein 30 (1+) H Urine Glucose (UA) Negative Urine Ketones Negative Urine Blood Negative Urine Nitrite Negative Ur Leukocyte Esterase Negative Urine RBC 0-2 Urine WBC 0-5 Ur Squamous Epith Cells 0-2 Urine Bacteria None Seen Hyaline Casts 0-2 09/14/25 03:44 MCV 95.2 MCH 29.9 MCHC 31.4 RDW 15.9 Plt Count 143 L MPV 9.6 Immature Gran % (Auto) 0.4 Neut % (Auto) 51.3 Lymph % (Auto) 28.9 [place] % (Auto) 12.4 H Eos % (Auto) 6.6 H Baso % (Auto) 0.4 Lymph # (Auto) 1.5 [place] # (Auto) 0.6 Eos # (Auto) 0.3 Baso # (Auto) 0.0 Abs Immat Gran (auto) 0.02 Absolute Neuts (auto) 2.6 Absolute Nucleated RBC 0.000 Nucleated RBC % (auto) 0.0 Anion Gap 12 Estim Creat Clear Calc 29.5 Estimated GFR 21 Random Glucose 120 H Lactic Acid Calcium 8.1 L Magnesium 1.3 L* Troponin I High Sens NT-Pro-B Natriuret Pep Urine Color Urine Appearance Urine pH Ur Specific [place] Urine Protein Urine Glucose (UA) Urine Ketones Urine Blood Urine Nitrite Ur Leukocyte Esterase Urine RBC Urine WBC Ur Squamous Epith Cells Urine Bacteria Hyaline Casts Assessment and Plan (1) Abscess, perirectal: Status: Acute Plan 60 y/o man with PMHx significant for Crohn's disease s/p total colectomy and colectomy reversal on Anacol, chronic ileocolitis, who presents with: Perirectal abscess. Continue empiric IV antibiotic therapy with Zosyn IV. IV fluids. Blood cultures obtained-will follow results. Surgery consult Diarrhea. Avoid antidiarrheal meds for now until GI panel results. Doubt C diff as the patient has total colectomy. Hypomagnesemia, likely secondary to poor intake and diarrhea. Replete as needed. Continue to monitor. Acute on chronic renal injury, likely due to diarrhea. Continue IV fluids. Continue to monitor renal function. Avoid nephrotoxic agents. Opiate use disorder. Continue methadone. Hyperlipidemia. Continue statin. Essential hypertension. Continue metoprolol and felodipine. Code status: Full DVT prophylaxis: Lovenox ongoing need hospitalization for perirectal abscess treatment with incision and drainage by surgery and empiric IV antibiotic therapy, patient also need IV fluids and close monitoring of renal function. Quality Stroke Does the patient have a stroke diagnosis?: No VTE Prior VTE?: No VTE Risk Level:: Medical - moderate - high VTE Device Contraindication: Treatment Not Indicated VTE Drug Contraindication: N/A - Med Ordered
--- NOTE | 2025-09-14 08:53 | PC.NURSE ---
Methadone dose 50mg confirmed with [facility] [address], with Rama GARCIA by phone. Verification paperwork signed and faxed/sent to [facility]. Dr. Marte also notified to enter orders.
--- NOTE | 2025-09-14 08:55 | HE.PHANOTE ---
RE METHADONE Pharmacy has received patients methadone verification form. Patient is confirmed to be receiving 50 mg of methadone with [facility], [phone]. Patient last dosed 09/11/25 per RADHA Ontiveros. Patient was also given 6 take home bottles.
--- NOTE | 2025-09-14 09:22 | PC.NURSE ---
Dr. oLpez to bedside speaking with patient.
--- NOTE | 2025-09-14 09:23 | PM.CNGS ---
History of Present Illness Consult details Consult date: 09/14/25 Narrative: 60-year-old male referred to me because of a small perirectal abscess He actually came to the hospital yesterday because of severe diarrhea for about a week. He says that because of this, he had been having burning around his anus Has known Crohn's disease. He had a previous bowel resection and ileostomy and he had this reversed about 10 years ago He is being followed by GI for his Crohn's disease. Review of Systems Constitutional: Constitutional: Denies chills and Denies fever(s) Cardiovascular: Cardiovascular: Denies chest pain, Denies dyspnea and Denies dyspnea on exertion Respiratory: Respiratory: Denies cough, Denies dyspnea and Denies dyspnea on exertion Gastrointestinal: Gastrointestinal: Denies hematochezia, Denies change in bowel habits and Reports diarrhea Genitourinary: Genitourinary: Denies hematuria and Denies difficulty urinating Musculoskeletal: Musculoskeletal: Denies back pain and Denies limited range of motion Neurologic: Denies focal weakness and Denies convulsions Psychiatric: Psychiatric: Denies depression and Denies mood swings PMF Past Medical History Medical History Clostridium difficile carrier Opioid use disorder Constipation Crohn's disease of both small and large intestine CKD (chronic kidney disease) Ulcerative colitis HLD (hyperlipidemia) Colitis HTN (hypertension) Family History Family History Mother Stroke Diabetes mellitus HTN (hypertension), benign Hyperlipidemia Brother Diabetes mellitus Surgical History Surgical History History of esophagogastroduodenoscopy (EGD) Hx of colonoscopy H/O total colectomy H/O cervical spine surgery History of colostomy reversal Social History Social History Household Members: None Housing: Apartment Housing Other:: Rents a room Do you presently have visiting nurse or other home services: No Alcohol intake: former Comment: Chirag Patient Tobacco Use Status: Never used Tobacco Smoked in Last 30 Days: No e-Cigarette/Vaping Use: Never Used Second Hand Smoke Exposure: No Use of substances other than those prescribed or required for medical reasons: No Substance Use Type: Heroin Advance Directives: Yes Advance Directives on File: Yes Advance Directives Date on File: 03/08/21 Do you have a plan to hurt others: No Plan service: No Current occupational status: unemployed Meds Allergies Allergy/AdvReac Type Severity Reaction Status Date / Time Iodinated Contrast Media (IV Allergy Intermediate HIVES Verified 09/13/25 14:02 CONTRAST) prednisone (PREDNISONE) Allergy Mild RASH Verified 09/13/25 14:02 Active Medications: Current Medications Acetaminophen (Acetaminophen 325 Mg Tablet) 975 mg PO Q6H PRN PRN Reason: Pain, Mild 1-3,fever,headache Amlodipine Besylate (Amlodipine Besylate 5 Mg Tablet) 5 mg PO BEDTIME MELVI Atorvastatin Calcium (Atorvastatin Calcium 80 Mg Tablet) 80 mg PO BEDTIME MELVI Calcium Carbonate (Calcium Carbonate 750 Mg Tab.Chew) 750 mg PO Q4H PRN PRN Reason: Heartburn Cyanocobalamin (Cyanocobalamin (Vitamin B-12) 1,000 Mcg Tablet) 1,000 mcg PO DAILY [facility] Enoxaparin Sodium (Enoxaparin Sodium 40 Mg/0.4 Ml Syringe) 40 mg SUBCUT Q24H [facility] Ferrous Sulfate (Ferrous Sulfate 324 Mg Tablet.) 324 mg PO DAILY [facility] Gabapentin (Gabapentin 300 Mg Capsule) 300 mg PO TID [facility] Hydromorphone HCl (Hydromorphone Hcl 0.5 Mg/0.5 Ml Syringe) 0.5 mg IVPUSH Q4H PRN; Protocol PRN Reason: Pain, Severe (Pain Scale 7-10) Last Admin: 09/13/25 20:42 Dose: 0.5 mg Piperacillin Sod/Tazobactam (Sod 3.375 gm/ Sodium Chloride) 50 mls @ 100 mls/hr IV Q6H [facility] Last Infusion: 09/14/25 07:08 Dose: Infused Lidocaine (Lidocaine 4 % Patch Adh..Patch) 1 patch TRANSDERMA DAILY [facility] Magnesium Hydroxide (Milk Of Magnesia 30 Ml Oral.Susp) 30 ml PO DAILY PRN PRN Reason: Constipation Melatonin (Melatonin 3 Mg Tablet) 6 mg PO BEDTIME PRN PRN Reason: Insomnia Methadone HCl (Methadone Hcl 20 Mg/2 Ml Oral.Conc) 50 mg PO DAILY [facility] Metoprolol Tartrate (Metoprolol Tartrate 50 Mg Tablet) 50 mg PO BID MELVI; Protocol Omeprazole (Omeprazole 20 Mg Capsule.) 20 mg PO DAILY@0630 [facility] Sodium Chloride (0.9 % Sodium Chloride Flush 3 Ml Syringe) 3 ml IVFLUSH QSHIFT [facility] Last Admin: 09/13/25 23:58 Dose: Not Given Zolpidem Tartrate (Zolpidem Tartrate 5 Mg Tablet) 10 mg PO BEDTIME [facility] Home Medications ?Medication ?Instructions ?Recorded ?Confirmed ?Last Taken ?Type metoprolol tartrate 50 mg tablet 50 mg PO BID 03/03/21 09/14/25 05/06/25 History rosuvastatin 40 mg tablet 40 mg PO BEDTIME 03/03/21 09/14/25 05/06/25 History zolpidem 10 mg tablet 1 tab PO BEDTIME 03/03/21 09/14/25 05/06/25 History ferrous gluconate 324 mg (38 mg 1 tab PO DAILY 06/30/21 09/14/25 05/06/25 History iron) tablet lidocaine 5 % topical patch 1 patch topical DAILY 08/20/21 09/14/25 05/06/25 History cyanocobalamin (vitamin B-12) 1 tab PO DAILY 07/07/22 09/14/25 05/06/25 History 1,000 mcg tablet gabapentin 300 mg capsule 300 mg PO TID 02/17/23 09/14/25 05/06/25 History methadone 10 mg/mL oral concentrate 50 mg PO DAILY 02/17/23 09/14/25 09/11/25 History lisinopril 20 mg tablet 20 mg PO DAILY 11/01/24 09/14/25 05/06/25 History pantoprazole 40 mg tablet,delayed 40 mg PO DAILY@0630 11/01/24 09/14/25 05/06/25 History release acetaminophen 650 mg 650 mg PO Q8H PRN mild pain 05/07/25 09/14/25 Unknown History tablet,extended release felodipine 5 mg tablet,extended 5 mg PO BEDTIME 05/07/25 09/14/25 05/06/25 History release 24 hr calcium polycarbophil 625 mg 625 mg PO DAILY 08/04/25 09/14/25 Unknown History tablet (Fiber-Lax) Physical Exam Vital Signs: Vital Signs: Last Vital Signs Temp 97.3 F 09/14/25 08:32 Pulse 80 09/14/25 08:32 Resp 12 09/14/25 08:32 BP 185/86 H 09/14/25 08:32 Pulse Ox 99 09/14/25 08:32 O2 Del Method Room Air 09/14/25 08:32 BMI result Body Mass Index 30.9 Const: Other: Obese looking General: comfortable and no acute distress Orientation/consciousness: patient oriented x3 Neck: Neck: Yes no lymphadenopathy Resp: Auscultation: clear to auscultation bilaterally Cardio: Rhythm: regular rhythm GI: Other: Rectal exam shows skin breakdown perianal area from his diarrhea with tenderness No induration in the perianal area, no fluctuance, no cellulitis Palpation (GI): Soft to palpation, nontender and no guarding Neuro: General: patient oriented x3 Results Labs 09/14/25 03:44 09/14/25 03:44 Labs: Abnormal lab results 09/13/25 09/13/25 09/14/25 Range/Units 15:22 16:10 03:44 RBC 3.54 L 3.34 L (4.60-5.80) X10*6/uL Hgb 10.5 L 10.0 L (14.0-18.0) g/dl Hct 34.4 L 31.8 L (42.0-52.0) % MCHC 30.5 L (31.0-36.0) g/dl RDW 16.4 H (11.0-16.0) % Plt Count 157 L D 143 L (160-400) X10*3/uL [place] % (Auto) 11.7 H 12.4 H (2-11) % Eos % (Auto) 4.1 H 6.6 H (0-4) % Chloride 111 H 109 H (96-108) mmol/L Carbon Dioxide 21 L 20 L (22-29) mmol/L BUN 51 H 41 H (9-16) mg/dL Creatinine 3.67 H 3.02 H (0.5-1.4) mg/dL Random Glucose 120 H (60-115) mg/dL Calcium 8.1 L (8.4-10.2) mg/dL Magnesium 1.3 L* 1.3 L* (1.6-2.6) mg/dL Urine Protein 30 (1+) H (Neg-Trace) mg/dL Short CBC 09/13/25 09/14/25 Range/Units 15:22 03:44 WBC 7.3 5.2 (4.8-10.8) X10*3/uL Hgb 10.5 L 10.0 L (14.0-18.0) g/dl Hct 34.4 L 31.8 L (42.0-52.0) % Plt Count 157 L D 143 L (160-400) X10*3/uL BMP 09/13/25 09/14/25 15:22 03:44 Sodium 140 137 Potassium 4.5 4.3 Chloride 111 H 109 H Carbon Dioxide 21 L 20 L BUN 51 H 41 H Creatinine 3.67 H 3.02 H Calcium 8.4 D 8.1 L Urine 09/13/25 Range/Units 16:10 Urine Color Yellow Urine Appearance Clear Urine pH 5.0 (5.0-9.0) Ur Specific [place] 1.015 (1.005-1.025) Urine Protein 30 (1+) H (Neg-Trace) mg/dL Urine Glucose (UA) Negative (Negative) mg/dL All other labs normal. Assessment and Plan (1) Crohn's colitis: Qualifiers: Digestive disease complication type: other complication Qualified Code(s): K50.118 - Crohn's disease of large intestine with other complication Status: Acute He actually came to the ER because of severe diarrhea with subsequent perianal pain from skin breakdown in view of this He had a CAT scan showing what appears to be a small perirectal abscess, 1.7 cm. Examination of the perianal area does not suggest any induration or fluctuance I would recommend continuing him on IV antibiotics. I did not feel that he will require surgical intervention for this finding on CAT scan He has diarrhea should be controlled as his main complaint is pain and burning in the perianal skin because of this We will follow along while he is in the hospital. He otherwise looks comfortable and is hemodynamically stable. Procedures Date of Service Date of Service: 09/14/25
--- NOTE | 2025-09-14 09:33 | PC.NURSE ---
Medications confirmed, awaiting second RN witness for Methadone administration. Pt is in Overflow ED 6 at this time. automatic paint sprayer operator (Alexandrea Martin) contacted. Awaiting witnessing RN to waste & administer medications.
[2025-09-14] MEDS: methADONE HCl 20 MG/2 ML ORAL.CONC 50 MG PO (10:30)
[2025-09-14] MEDS: 0.9 % Sodium Chloride Flush 3 ML SYRINGE IVFLUSH ×3 (10:31→19:27)
[2025-09-14] MEDS: Lidocaine 4 % Patch ADH..PATCH 1 PATCH TRANSDERMA (10:31)
[2025-09-14] MEDS: Ferrous Sulfate 324 MG TABLET.DR PO (10:31)
--- NOTE | 2025-09-14 12:59 | PC.NURSE ---
Assumed care of patient in ED overflow at 1130. Alert and oriented x 4, calm and cooperative with care. Lungs clear/ on room air, unlabored breathing. Resting comfortably in bed at this time. Ambulating to bathroom with a steady gait. Refusing bed alarm. Call maria within reach, encouraged to ring maria for all needs.
--- NOTE | 2025-09-14 14:15 | PC.NURSE ---
BP: 180/91 MD notified, no new orders at this time. Patient resting comfortably in bed.
--- NOTE | 2025-09-14 20:06 | PC.NURSE ---
1900 Care assumed. Stool sample obtained and sent to lab. Assessment as documented. Belonging list updated and written report provided to Luz Marina Guerra as patient will be transfered to Room 359.
[2025-09-14 21:28] LABS: CDiff Gene PCR NEGATIVE (Negative)
--- NOTE | 2025-09-14 23:04 | PC.NURSE ---
Pt refusing bed alarms/sequentials. Pt educated on why they were ordered but declined at this time. Pt ambulating steadily with no weakness present.
[2025-09-15 03:09] VITALS: BP 163/85; PULSE 64; RESP 15; TEMP 36.3; O2SAT 97
--- NOTE | 2025-09-15 07:38 | P.CNGI_ITS ---
History of Present Illness Data of Consult Service Date: 09/15/25 Requesting physician: Dawson Marte Primary Care Provider: Dariela Scott MD [facility] Reason for consult: Violet-rectal abscess This is a 60-year-old gentleman with previous history of UC s/p total colectomy ([place], [place] in ) and later on reconstruction to IPAA at [facility] (Dr Johns) then evolving to Crohn's disease on entyvio (Dr Silva) who presented to the hospital for severe diarrhea and anal pain. Gastroenterology has been consulted for Crohn's flare with perirectal abscess. History obtained with the patient, who states that for the past 1 week he has been experiencing loose watery bowel movements up to 10 times a day without any blood. With the past 3 days, he also started noticing increased pain and burning on wiping the feeling of swelling next to the anal orifice. He therefore presented to the emergency room for further evaluation. CT abdomen and pelvis without IV contrast shows 1.7 cm abscess in posterior rectum with foci of air. He also has dilated small bowel loops up to 3.7 cm with fat stranding around the area and lymphadenopathy. IBD Hx: Location: Small and large bowel Age/yr of diagnosis: late 20s Prev meds: Mesalamine, budesonide, entyvio (09/2023-12/2024) Current meds: Stelara (started induction 01/13/25, last dose 06/30/25 - MISSED most recent dose on 08/26) Steroid use: budesonide 10/2024 Surgeries: as above Recent endoscopy: MISSED pouchoscopy appt 08/20/25 Recent imaging: CT abd/pel 09/13/25 with perirectal abscess and small bowel dil Fam hx: N/A [facility] Past Medical History Medical History (Updated 09/15/25 @ 12:55 by Taryn Lazcano MD) Crohn's disease of both small and large intestine Clostridium difficile carrier Opioid use disorder Constipation CKD (chronic kidney disease) Ulcerative colitis HLD (hyperlipidemia) Colitis HTN (hypertension) Family History Family History Mother Stroke Diabetes mellitus HTN (hypertension), benign Hyperlipidemia Brother Diabetes mellitus Surgical History Surgical History History of esophagogastroduodenoscopy (EGD) Hx of colonoscopy H/O total colectomy H/O cervical spine surgery History of colostomy reversal Social History Social History Household Members: None Housing: House Housing Other:: Rents a room Do you presently have visiting nurse or other home services: No Alcohol intake: former Comment: Chirag Patient Tobacco Use Status: Never used Tobacco e-Cigarette/Vaping Use: Never Used Second Hand Smoke Exposure: No Substance Use Type: Heroin Advance Directives Date on File: 03/08/21 service: No Current occupational status: unemployed Meds Allergies Allergy/AdvReac Type Severity Reaction Status Date / Time Iodinated Contrast Media (IV Allergy Intermediate HIVES Verified 09/13/25 14:02 CONTRAST) prednisone (PREDNISONE) Allergy Mild RASH Verified 09/13/25 14:02 Active Medications: Current Medications Acetaminophen (Acetaminophen 325 Mg Tablet) 975 mg PO Q6H PRN PRN Reason: Pain, Mild 1-3,fever,headache Amlodipine Besylate (Amlodipine Besylate 5 Mg Tablet) 5 mg PO BEDTIME [facility] Last Admin: 09/14/25 21:48 Dose: 5 mg Atorvastatin Calcium (Atorvastatin Calcium 80 Mg Tablet) 80 mg PO BEDTIME [facility]ELVI Last Admin: 09/14/25 21:47 Dose: 80 mg Calcium Carbonate (Calcium Carbonate 750 Mg Tab.Chew) 750 mg PO Q4H PRN PRN Reason: Heartburn Cyanocobalamin (Cyanocobalamin (Vitamin B-12) 1,000 Mcg Tablet) 1,000 mcg PO DAILY [facility] Last Admin: 09/14/25 10:31 Dose: 1,000 mcg Enoxaparin Sodium (Enoxaparin Sodium 40 Mg/0.4 Ml Syringe) 40 mg SUBCUT Q24H [facility] Last Admin: 09/14/25 10:30 Dose: 40 mg Ferrous Sulfate (Ferrous Sulfate 324 Mg Tablet.Dr) 324 mg PO DAILY [facility] Last Admin: 09/14/25 10:31 Dose: 324 mg Gabapentin (Gabapentin 300 Mg Capsule) 300 mg PO TID [facility] Last Admin: 09/14/25 21:47 Dose: 300 mg Hydromorphone HCl (Hydromorphone Hcl 0.5 Mg/0.5 Ml Syringe) 0.5 mg IVPUSH Q4H PRN; Protocol PRN Reason: Pain, Severe (Pain Scale 7-10) Last Admin: 09/13/25 20:42 Dose: 0.5 mg Piperacillin Sod/Tazobactam (Sod 3.375 gm/ Sodium Chloride) 50 mls @ 100 mls/hr IV Q6H [facility] Last Infusion: 09/15/25 07:12 Dose: Infused Lidocaine (Lidocaine 4 % Patch Adh..Patch) 1 patch TRANSDERMA DAILY [facility] Last Admin: 09/14/25 10:31 Dose: 1 patch Magnesium Hydroxide (Milk Of Magnesia 30 Ml Oral.Susp) 30 ml PO DAILY PRN PRN Reason: Constipation Melatonin (Melatonin 3 Mg Tablet) 6 mg PO BEDTIME PRN PRN Reason: Insomnia Methadone HCl (Methadone Hcl 20 Mg/2 Ml Oral.Conc) 50 mg PO DAILY [facility] Last Admin: 09/14/25 10:30 Dose: 50 mg Metoprolol Tartrate (Metoprolol Tartrate 50 Mg Tablet) 50 mg PO BID [facility]; Protocol Last Admin: 09/14/25 21:47 Dose: 50 mg Omeprazole (Omeprazole 20 Mg Capsule.Dr) 20 mg PO DAILY@0630 [facility] Last Admin: 09/15/25 05:59 Dose: 20 mg Sodium Chloride (0.9 % Sodium Chloride Flush 3 Ml Syringe) 3 ml IVFLUSH QSHIFT [facility] Last Admin: 09/14/25 19:27 Dose: 3 ml Zolpidem Tartrate (Zolpidem Tartrate 5 Mg Tablet) 10 mg PO BEDTIME [facility] Last Admin: 09/14/25 21:57 Dose: 10 mg Home Medications ?Medication ?Instructions ?Recorded ?Confirmed ?Last Taken ?Type metoprolol tartrate 50 mg tablet 50 mg PO BID 03/03/21 09/14/25 05/06/25 History rosuvastatin 40 mg tablet 40 mg PO BEDTIME 03/03/2105/06/25 History zolpidem 10 mg tablet 1 tab PO BEDTIME 03/03/2105/06/25 History ferrous gluconate 324 mg (38 mg 1 tab PO DAILY 1 09/14/25 05/06/25 History iron) tablet lidocaine 5 % topical patch 1 patch topical DAILY 07/0309/14/25 05/06/25 History cyanocobalamin (vitamin B-12) 1 tab PO DAILY 07/07/22 09/14/25 05/06/25 History 1,000 mcg tablet gabapentin 300 mg capsule 300 mg PO TID 02/17/2309/1405/06/25 History methadone 10 mg/mL oral concentrate 50 mg PO DAILY 06/0409/14/25 09/11/25 History lisinopril 20 mg tablet 20 mg PO DAILY 11/01/2401/0705/06/25 History pantoprazole 40 mg tablet,delayed 40 mg PO DAILY@0630 11/01/24 09/14/25 05/06/25 History release acetaminophen 650 mg 650 mg PO Q8H PRN mild pain 05/07/25 09/14/25 Unknown History tablet,extended release felodipine 5 mg tablet,extended 5 mg PO BEDTIME 09/14/25 05/06/25 History release 24 hr calcium polycarbophil 625 mg 625 mg PO DAILY 08/04/25 09/14/25 Unknown History tablet (Fiber-Lax) Physical Exam 2 Exam: Exam: appears younger than stated age nad nonicteric abd soft, mildly distended, nontender, no guarding rectal deferred mild [place] Vital Signs: Vital Signs: Last Vital Signs Temp 97.3 F 09/15/25 03:09 Pulse 64 09/15/25 03:09 Resp 15 09/15/25 03:09 BP 163/85 H 09/15/25 03:09 Pulse Ox 97 09/15/25 03:09 O2 Del Method Room Air 09/15/25 03:09 BMI result Body Mass Index 34.5 Results Labs 09/14/25 03:44 09/15/25 09:08 Microbiology Microbiology Results: Microbiology 09/13/25 16:58 Blood - Venous Blood Culture - Preliminary No growth after 24 hours. 09/13/25 16:55 Blood - Venous Blood Culture - Preliminary No growth after 24 hours. 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 Appreciate input from surgery colleagues. Abscess likely 2/2 crohns flare up. C diff and GI panel negative. Pt seems to be noncompliant with stelara s/q shots despite being set up at infusion suite and not self administered. plan: - check C Diff and GI panel - Consider cipro and flagyl - may need at least 14-21 days of antimicrobial therapy if abscess not drained, guided by interval imaging - MRI abd/pel with contrast for further evaluation (CT was without contrast - iodinated contrast allergy) - hold steroids - will need to establish whether has non-response to stelara vs inadequate drug levels - levels ordered - if has low levels, will need q4-6w dosing - if has non-response may need anti-TNF therapy in future once abscess is controlled Thank you for allowing me to participate in his care. Please do not hesitate to reach out for any questions or concerns Procedures Date of Service Date of Service: 09/15/25
[2025-09-15 07:43] VITALS: BP 151/76; PULSE 70; RESP 16; TEMP 36.2; O2SAT 97
--- NOTE | 2025-09-15 08:12 | PM.PNGS ---
Subjective Subjective Date of Service: 09/15/25 <Rory Kaur PA-C - Last Filed: 09/15/25 08:28> 09/15/25 <Richard Lopez MD - Last Filed: 09/15/25 12:04> Patient reports: diarrhea <MILAGRO Fernandes Last Filed: 09/15/25 08:28> Interval history: complaining of pain in the rectum, overall improving from presentation. Continues to have diarrhea, 10x daily, this is unchanged. denies abdominal pain <Rory Kaur PA-C - Last Filed: 09/15/25 08:28> Physical Exam Vital Signs: Vital Signs: Last Vital Signs Temp 97.1 F 09/15/25 07:43 Pulse 70 09/15/25 07:43 Resp 16 09/15/25 07:43 BP 151/76 H 09/15/25 07:43 Pulse Ox 97 09/15/25 07:43 O2 Del Method Room Air 09/15/25 07:43 BMI result Body Mass Index 34.5 <Rory Kaur PA-C - Last Filed: 09/15/25 08:28> Const: General: comfortable and no acute distress <Rory Kaur PA-C - Last Filed: 09/15/25 08:28> Orientation/consciousness: patient oriented x3 <MILAGRO Fernandes Last Filed: 09/15/25 08:28> Resp: Effort & Inspection: normal respiratory effort and able to speak in complete sentences <Rory Kaur PA-C - Last Filed: 09/15/25 08:28> GI: Rectal Exam - Male: No visual inspection normal (perianal skin breakdown, small superficial pustules. no fluctuance) and Yes tenderness <Rory Kaur PA-C - Last Filed: 09/15/25 08:28> Neuro: General: patient oriented x3 <MILAGRO Fernandes Last Filed: 09/15/25 08:28> Objective Data Active Medications Acetaminophen (Acetaminophen 325 Mg Tablet) 975 mg PO Q6H PRN PRN Reason: Pain, Mild 1-3,fever,headache Amlodipine Besylate (Amlodipine Besylate 5 Mg Tablet) 5 mg PO BEDTIME [facility] Last Admin: 09/14/25 21:48 Dose: 5 mg Documented By: VIC Atorvastatin Calcium (Atorvastatin Calcium 80 Mg Tablet) 80 mg PO BEDTIME [facility] Last Admin: 09/14/25 21:47 Dose: 80 mg Documented By: VIC Calcium Carbonate (Calcium Carbonate 750 Mg Tab.Chew) 750 mg PO Q4H PRN PRN Reason: Heartburn Cyanocobalamin (Cyanocobalamin (Vitamin B-12) 1,000 Mcg Tablet) 1,000 mcg PO DAILY [facility] Last Admin: 09/14/25 10:31 Dose: 1,000 mcg Documented By: ALBERTO Enoxaparin Sodium (Enoxaparin Sodium 40 Mg/0.4 Ml Syringe) 40 mg SUBCUT Q24H [facility] Last Admin: 09/14/25 10:30 Dose: 40 mg Documented By: ALBERTO Ferrous Sulfate (Ferrous Sulfate 324 Mg Tablet.Dr) 324 mg PO DAILY [facility] Last Admin: 09/14/25 10:31 Dose: 324 mg Documented By: ALBERTO Gabapentin (Gabapentin 300 Mg Capsule) 300 mg PO TID [facility] Last Admin: 09/14/25 21:47 Dose: 300 mg Documented By: VIC Hydromorphone HCl (Hydromorphone Hcl 0.5 Mg/0.5 Ml Syringe) 0.5 mg IVPUSH Q4H PRN; Protocol PRN Reason: Pain, Severe (Pain Scale 7-10) Last Admin: 09/13/25 20:42 Dose: 0.5 mg Documented By: ANDER Piperacillin Sod/Tazobactam (Sod 3.375 gm/ Sodium Chloride) 50 mls @ 100 mls/hr IV Q6H [facility] Last Infusion: 09/15/25 07:12 Dose: Infused Documented By: ROSMERY Lidocaine (Lidocaine 4 % Patch Adh..Patch) 1 patch TRANSDERMA DAILY [facility] Last Admin: 09/14/25 10:31 Dose: 1 patch Documented By: ALBERTO Magnesium Hydroxide (Milk Of Magnesia 30 Ml Oral.Susp) 30 ml PO DAILY PRN PRN Reason: Constipation Melatonin (Melatonin 3 Mg Tablet) 6 mg PO BEDTIME PRN PRN Reason: Insomnia Methadone HCl (Methadone Hcl 20 Mg/2 Ml Oral.Conc) 50 mg PO DAILY [facility] Last Admin: 09/14/25 10:30 Dose: 50 mg Documented By: ALBERTO Co-signed By: MALATHI Metoprolol Tartrate (Metoprolol Tartrate 50 Mg Tablet) 50 mg PO BID [facility]; Protocol Last Admin: 09/14/25 21:47 Dose: 50 mg Documented By: VIC Omeprazole (Omeprazole 20 Mg Capsule.) 20 mg PO DAILY@0630 [facility] Last Admin: 09/15/25 05:59 Dose: 20 mg Documented By: LEFMARK Sodium Chloride (0.9 % Sodium Chloride Flush 3 Ml Syringe) 3 ml IVFLUSH QSHIFT [facility] Last Admin: 09/14/25 19:27 Dose: 3 ml Documented By: VIC Zolpidem Tartrate (Zolpidem Tartrate 5 Mg Tablet) 10 mg PO BEDTIME [facility] Last Admin: 09/14/25 21:57 Dose: 10 mg Documented By: VIC <Rory Kaur PA-C - Last Filed: 09/15/25 08:28> Labs CBC & Chem 7: 09/14/25 03:44 09/15/25 09:08 <Rory Kaur PA-C - Last Filed: 09/15/25 08:28> Labs: Laboratory Results - last 24 hr 09/14/25 19:25 C. difficile Tox B Gene NEGATIVE <Rory Kaur PA-C - Last Filed: 09/15/25 08:28> Microbiology Microbiology Results: Microbiology 09/13/25 16:58 Blood Culture - Preliminary Blood - Venous No growth after 24 hours. 09/13/25 16:55 Blood Culture - Preliminary Blood - Venous No growth after 24 hours. <Rory Kaur PA-C - Last Filed: 09/15/25 08:28> Procedures Date of Service Date of Service: 09/15/25 <Rory Kaur PA-C - Last Filed: 09/15/25 08:28> 09/15/25 <Richard Lopez MD - Last Filed: 09/15/25 12:04> Progress Note: A&P Assessment and plan (1) Abscess, perirectal: Status: Acute <Rory Kaur PA-C - Last Filed: 09/15/25 08:28> Assessment and Plan: Main complaint is diarrhea Has perianal burning likely from skin breakdown No induration or fluctuance No surgical intervention planned for now Continue IV antibiotics Seen and examined independently <Richard Lopez MD - Last Filed: 09/15/25 12:04> Assessment and Plan: 60 year old male followed by general surgery for small perianal abscess, rectal pain secodnary to diarrhea. He continues to have pain the anus, although improving. he continues to have frequent diarrhea, 10x per day. On exam, he has breakdown of the perianal skin, there is small pustules on the right side, do not appear to be actively draining, there is no fluctuance or fluid collection. Very tender to palpation. There is fecal matter on the skin here, likely worsening this symptoms and skin breakdown. No surgical intervention at this time, will continue to follow for possible drainage if needed. control diarrhea good hygiene after BM recommend barrier cream <Rory Kaur PA-C - Last Filed: 09/15/25 08:28> Time Spent With Patient Time: Total time managing care of this patient today ____ minutes. <Rory Kaur PA-C - Last Filed: 09/15/25 08:28> Quality Stroke Does the patient have a stroke diagnosis?: No <Rory Kaur PA-C - Last Filed: 09/15/25 08:28> VTE Prior VTE?: No <Rory Kaur PA-C - Last Filed: 09/15/25 08:28> VTE Risk Level:: Medical - moderate - high <Rory Kaur PA-C - Last Filed: 09/15/25 08:28> VTE Device Contraindication: Treatment Not Indicated <Rory Kaur PA-C - Last Filed: 09/15/25 08:28> VTE Drug Contraindication: N/A - Med Ordered <Rory Kaur PA-C - Last Filed: 09/15/25 08:28>
[2025-09-15] MEDS: Ferrous Sulfate 324 MG TABLET.DR PO (09:33)
[2025-09-15] MEDS: methADONE HCl 20 MG/2 ML ORAL.CONC 50 MG PO (09:33)
[2025-09-15] MEDS: Lidocaine 4 % Patch ADH..PATCH 1 PATCH TRANSDERMA (09:34)
[2025-09-15 09:36] VITALS: BP 139/86; PULSE 71
[2025-09-15 09:37] LABS: Anion Gap 13 (12-20); Blood Urea Nitrogen 31 mg/dL (9-16); Calcium 8.8 mg/dL (8.4-10.2); Carbon Dioxide 24 mmol/L (22-29); Chloride 105 mmol/L (96-108); Creatinine Clr Calc Pharmacy 37.2; Estimated Glomerular Filt Rate 26; Magnesium 1.4 mg/dL (1.6-2.6); Potassium 4.9 mmol/L (3.3-5.1); Sodium 137 mmol/L (135-145)
[2025-09-15] MEDS: Magnesium Sulfate/H2O 2 GM/50 ML PIGGYBACK IV (09:43)
[2025-09-15] MEDS: 0.9 % Sodium Chloride Flush 3 ML SYRINGE IVFLUSH ×3 (09:52→20:09)
[2025-09-15 11:24] LABS: E. coli EAEC Not Detected (Not Detect.); E. coli EPEC Not Detected (Not Detect.); E. coli ETEC Not Detected (Not Detect.); E. coli STEC Not Detected (Not Detect.); Shigella sp./EIEC Not Detected (Not Detect.)
--- NOTE | 2025-09-15 11:33 | P.PNIM_ITS ---
Subjective Subjective Date of Service: 09/15/25 Interval History: recteal abcess ,mayte on ckd Review of Systems has some rectal pain no new overnight events Review of Systems: Yes all other systems are reviewed and are negative Physical Exam 2 Exam: Exam: Appearance: Alert.? Oriented X3.? cvs: [id number], [id number] , no murmur res: clear to auscultation ,no rhonchii or wheezing abd: no rebound or guarding ,nt, bs present. rectal: As per surgical exam note: skin breakdown perianal area from his diarrhea with tenderness ext pulses present , no cyanosis. neuro: axo3 , nonfocal. Vital Signs: Vital Signs: Last Vital Signs Temp 97.1 F 09/15/25 07:43 Pulse 71 09/15/25 09:36 Resp 16 09/15/25 07:43 BP 139/86 09/15/25 09:36 Pulse Ox 97 09/15/25 07:43 O2 Del Method Room Air 09/15/25 07:43 BMI result Body Mass Index 34.5 Objective Data Active Medications Acetaminophen (Acetaminophen 325 Mg Tablet) 975 mg PO Q6H PRN PRN Reason: Pain, Mild 1-3,fever,headache Amlodipine Besylate (Amlodipine Besylate 5 Mg Tablet) 5 mg PO BEDTIME [facility] Last Admin: 09/14/25 21:48 Dose: 5 mg Documented By: VIC Atorvastatin Calcium (Atorvastatin Calcium 80 Mg Tablet) 80 mg PO BEDTIME [facility] Last Admin: 09/14/25 21:47 Dose: 80 mg Documented By: VIC Calcium Carbonate (Calcium Carbonate 750 Mg Tab.Chew) 750 mg PO Q4H PRN PRN Reason: Heartburn Cyanocobalamin (Cyanocobalamin (Vitamin B-12) 1,000 Mcg Tablet) 1,000 mcg PO DAILY [facility] Last Admin: 09/15/25 09:33 Dose: 1,000 mcg Documented By: ROSMERY Enoxaparin Sodium (Enoxaparin Sodium 40 Mg/0.4 Ml Syringe) 40 mg SUBCUT Q24H [facility] Last Admin: 09/15/25 09:33 Dose: 40 mg Documented By: ROSMERY Ferrous Sulfate (Ferrous Sulfate 324 Mg Tablet.) 324 mg PO DAILY [facility] Last Admin: 09/15/25 09:33 Dose: 324 mg Documented By: ROSMERY Gabapentin (Gabapentin 300 Mg Capsule) 300 mg PO TID [facility] Last Admin: 09/15/25 09:33 Dose: 300 mg Documented By: ROSMERY Hydromorphone HCl (Hydromorphone Hcl 0.5 Mg/0.5 Ml Syringe) 0.5 mg IVPUSH Q4H PRN; Protocol PRN Reason: Pain, Severe (Pain Scale 7-10) Last Admin: 09/13/25 20:42 Dose: 0.5 mg Documented By: ANDER Piperacillin Sod/Tazobactam (Sod 3.375 gm/ Sodium Chloride) 50 mls @ 100 mls/hr IV Q6H [facility] Last Infusion: 09/15/25 07:12 Dose: Infused Documented By: ROSMERY Lidocaine (Lidocaine 4 % Patch Adh..Patch) 1 patch TRANSDERMA DAILY [facility] Last Admin: 09/15/25 09:34 Dose: 1 patch Documented By: ROSMERY Magnesium Hydroxide (Milk Of Magnesia 30 Ml Oral.Susp) 30 ml PO DAILY PRN PRN Reason: Constipation Melatonin (Melatonin 3 Mg Tablet) 6 mg PO BEDTIME PRN PRN Reason: Insomnia Methadone HCl (Methadone Hcl 20 Mg/2 Ml Oral.Conc) 50 mg PO DAILY [facility] Last Admin: 09/15/25 09:33 Dose: 50 mg Documented By: ROSMERY Co-signed By: ASHLEY Metoprolol Tartrate (Metoprolol Tartrate 50 Mg Tablet) 50 mg PO BID [facility]; Protocol Last Admin: 09/15/25 09:36 Dose: 50 mg Documented By: ROSMERY Omeprazole (Omeprazole 20 Mg Capsule.Dr) 20 mg PO DAILY@0630 [facility] Last Admin: 09/15/25 05:59 Dose: 20 mg Documented By: LEFEBRK Sodium Chloride (0.9 % Sodium Chloride Flush 3 Ml Syringe) 3 ml IVFLUSH QSHIFT [facility] Last Admin: 09/15/25 09:52 Dose: 3 ml Documented By: ROSMERY Zolpidem Tartrate (Zolpidem Tartrate 5 Mg Tablet) 10 mg PO BEDTIME [facility] Last Admin: 09/14/25 21:57 Dose: 10 mg Documented By: VIC Labs 09/14/25 03:44 09/15/25 09:08 Labs: Laboratory Results - last 24 hr 09/14/25 09/15/25 19:25 09:08 Anion Gap 13 Estim Creat Clear Calc 37.2 Estimated GFR 26 Random Glucose 133 H Calcium 8.8 D Magnesium 1.4 L* Stl C. cayetanensis PCR Not Detected Stool Rotavirus A PCR Not Detected Stl Adenov F 40/41 PCR Not Detected Stool Astrovirus (PCR) Not Detected Stool Campylobacter PCR Not Detected Stool Cryptosporidium PCR Not Detected Stl Sh Tox Pr E STEC PCR Not Detected Stool E coli O157 PCR Not applicable Stl Enterotoxigenic E PCR Not Detected Stool EPEC (PCR) Not Detected Stool EAEC (PCR) Not Detected Stl E. histolytica PCR Not Detected Stool Giardia Lamblia PCR Not Detected Stl P. shigelloides PCR Not Detected Stool Salmonella PCR Not Detected Stool Sapovirus (PCR) Not Detected Stl Shigella/EIEC PCR Not Detected St Y.enterocolitica PCR Not Detected Stool Vibrio (PCR) Not Detected Stl Vibrio cholerae PCR Not Detected Stl Norovirus GI/GII PCR Not Detected C. difficile Tox B Gene NEGATIVE Microbiology Microbiology Results: Microbiology 09/13/25 16:58 Blood Culture - Preliminary Blood - Venous No growth after 24 hours. 09/13/25 16:55 Blood Culture - Preliminary Blood - Venous No growth after 24 hours. Assessment and Plan (1) Abscess, perirectal: Status: Acute Plan 60 y/o man with PMHx significant for Crohn's disease s/p total colectomy and colectomy reversal on Anacol, chronic ileocolitis, who presents with: Perirectal abscess. Continue empiric IV antibiotic therapy with Zosyn IV. IV fluids. Blood cultures obtained-will follow results. Surgery following Diarrhea. Avoid antidiarrheal meds for now until GI panel results. Doubt C diff as the patient has total colectomy. acute Hypomagnesemia, likely secondary to poor intake and diarrhea. Replete as needed. Continue to monitor. Acute on chronic renal injury, likely due to diarrhea. Continue IV fluids. Continue to monitor renal function. Avoid nephrotoxic agents. nephrology eval Opiate use disorder. Continue methadone. Hyperlipidemia. Continue statin. Essential hypertension. Continue metoprolol and felodipine. Code status: Full DVT prophylaxis: Lovenox ongoing need hospitalization for perirectal abscess treatment :empiric IV antibiotic therapy, patient also need IV fluids and close monitoring of renal function.if does not improve might need surgery Quality Stroke Does the patient have a stroke diagnosis?: No VTE Prior VTE?: No VTE Risk Level:: Medical - moderate - high VTE Device Contraindication: Treatment Not Indicated VTE Drug Contraindication: N/A - Med Ordered
--- NOTE | 2025-09-15 11:45 | MHC.CM.PN ---
pt lives alone is indepedent has no services has own ride home dc jean home n/s
[2025-09-15 12:00] VITALS: BP 159/94; PULSE 64; RESP 18; TEMP 36.2; O2SAT 100
--- NOTE | 2025-09-15 13:04 | PM.CNNEP ---
History of Present Illness Reason for Consult Consult date: 09/15/25 Reason for consult: A/ki Chief Complaint Chief complaint: Diarrhea History of Present Illness Narrative: 60 years old man with past medical history significant for Crohn's disease status post total colectomy and colectomy reversal on Anacol, chronic ileocolitis, opiate use disorder on methadone, c.diff and CKD stage 3B presents to the emergency department complaining of nonbloody watery diarrhea over the last 3 days. He does complain of associated irritation of the perirectal area. He reported suggestive fever, chills and generalized abdominal cramp. He denied any headache, palpitations, dizziness or loss of consciousness Review of Systems Constitutional: Denies fever(s) and Denies weight loss Cardiovascular: Denies chest pain Respiratory: Denies cough and Denies hemoptysis Gastrointestinal: Denies abdominal pain, Reports diarrhea and Denies nausea Musculoskeletal: Denies back pain Denies focal weakness PMFSH Past Medical History Medical History (Updated 09/15/25 @ 12:55 by Taryn Lazcano MD) Crohn's disease of both small and large intestine Clostridium difficile carrier Opioid use disorder Constipation CKD (chronic kidney disease) Ulcerative colitis HLD (hyperlipidemia) Colitis HTN (hypertension) Family History Family History Mother Stroke Diabetes mellitus HTN (hypertension), benign Hyperlipidemia Brother Diabetes mellitus Surgical History Surgical History History of esophagogastroduodenoscopy (EGD) Hx of colonoscopy H/O total colectomy H/O cervical spine surgery History of colostomy reversal Social History Social History Household Members: None Housing: House Housing Other:: Rents a room Do you presently have visiting nurse or other home services: No Alcohol intake: former Comment: Chirag Patient Tobacco Use Status: Never used Tobacco e-Cigarette/Vaping Use: Never Used Second Hand Smoke Exposure: No Substance Use Type: Heroin Advance Directives Date on File: 03/08/21 service: No Current occupational status: unemployed Meds Allergies Allergy/AdvReac Type Severity Reaction Status Date / Time Iodinated Contrast Media (IV Allergy Intermediate HIVES Verified 09/13/25 14:02 CONTRAST) prednisone (PREDNISONE) Allergy Mild RASH Verified 09/13/25 14:02 Active Medications: Current Medications Acetaminophen (Acetaminophen 325 Mg Tablet) 975 mg PO Q6H PRN PRN Reason: Pain, Mild 1-3,fever,headache Amlodipine Besylate (Amlodipine Besylate 5 Mg Tablet) 5 mg PO BEDTIME [facility] Last Admin: 09/14/25 21:48 Dose: 5 mg Atorvastatin Calcium (Atorvastatin Calcium 80 Mg Tablet) 80 mg PO BEDTIME [facility] Last Admin: 09/14/25 21:47 Dose: 80 mg Calcium Carbonate (Calcium Carbonate 750 Mg Tab.Chew) 750 mg PO Q4H PRN PRN Reason: Heartburn Cyanocobalamin (Cyanocobalamin (Vitamin B-12) 1,000 Mcg Tablet) 1,000 mcg PO DAILY [facility] Last Admin: 09/15/25 09:33 Dose: 1,000 mcg Enoxaparin Sodium (Enoxaparin Sodium 40 Mg/0.4 Ml Syringe) 40 mg SUBCUT Q24H [facility] Last Admin: 09/15/25 09:33 Dose: 40 mg Ferrous Sulfate (Ferrous Sulfate 324 Mg Tablet.Dr) 324 mg PO DAILY [facility] Last Admin: 09/15/25 09:33 Dose: 324 mg Gabapentin (Gabapentin 300 Mg Capsule) 300 mg PO TID [facility] Last Admin: 09/15/25 09:33 Dose: 300 mg Hydromorphone HCl (Hydromorphone Hcl 0.5 Mg/0.5 Ml Syringe) 0.5 mg IVPUSH Q4H PRN; Protocol PRN Reason: Pain, Severe (Pain Scale 7-10) Last Admin: 09/13/25 20:42 Dose: 0.5 mg Piperacillin Sod/Tazobactam (Sod 3.375 gm/ Sodium Chloride) 50 mls @ 100 mls/hr IV Q6H [facility] Last Infusion: 09/15/25 07:12 Dose: Infused Lidocaine (Lidocaine 4 % Patch Adh..Patch) 1 patch TRANSDERMA DAILY [facility] Last Admin: 09/15/25 09:34 Dose: 1 patch Loperamide HCl (Loperamide Hcl 2 Mg Capsule) 2 mg PO Q4H PRN PRN Reason: Diarrhea Last Admin: 09/15/25 11:44 Dose: 2 mg Magnesium Hydroxide (Milk Of Magnesia 30 Ml Oral.Susp) 30 ml PO DAILY PRN PRN Reason: Constipation Melatonin (Melatonin 3 Mg Tablet) 6 mg PO BEDTIME PRN PRN Reason: Insomnia Methadone HCl (Methadone Hcl 20 Mg/2 Ml Oral.Conc) 50 mg PO DAILY [facility] Last Admin: 09/15/25 09:33 Dose: 50 mg Metoprolol Tartrate (Metoprolol Tartrate 50 Mg Tablet) 50 mg PO BID [facility]; Protocol Last Admin: 09/15/25 09:36 Dose: 50 mg Omeprazole (Omeprazole 20 Mg Capsule.Dr) 20 mg PO DAILY@0630 [facility] Last Admin: 09/15/25 05:59 Dose: 20 mg Sodium Chloride (0.9 % Sodium Chloride Flush 3 Ml Syringe) 3 ml IVFLUSH QSHIFT [facility] Last Admin: 09/15/25 09:52 Dose: 3 ml Zolpidem Tartrate (Zolpidem Tartrate 5 Mg Tablet) 10 mg PO BEDTIME [facility] Last Admin: 09/14/25 21:57 Dose: 10 mg Home Medications ?Medication ?Instructions ?Recorded ?Confirmed ?Last Taken ?Type metoprolol tartrate 50 mg tablet 50 mg PO BID 03/03/21 09/14/25 05/06/25 History rosuvastatin 40 mg tablet 40 mg PO BEDTIME 03/03/21 09/14/25 05/06/25 History zolpidem 10 mg tablet 1 tab PO BEDTIME 03/03/21 09/14/25 05/06/25 History ferrous gluconate 324 mg (38 mg 1 tab PO DAILY 06/30/21 09/14/25 05/06/25 History iron) tablet lidocaine 5 % topical patch 1 patch topical DAILY 08/20/21 09/14/25 05/06/25 History cyanocobalamin (vitamin B-12) 1 tab PO DAILY 07/07/22 09/14/25 05/06/25 History 1,000 mcg tablet gabapentin 300 mg capsule 300 mg PO TID 02/17/23 09/14/25 05/06/25 History methadone 10 mg/mL oral concentrate 50 mg PO DAILY 02/17/23 09/14/25 09/11/25 History lisinopril 20 mg tablet 20 mg PO DAILY 11/01/24 09/14/25 05/06/25 History pantoprazole 40 mg tablet,delayed 40 mg PO DAILY@0630 11/01/24 09/14/25 05/06/25 History release acetaminophen 650 mg 650 mg PO Q8H PRN mild pain 05/07/25 09/14/25 Unknown History tablet,extended release felodipine 5 mg tablet,extended 5 mg PO BEDTIME 05/07/25 09/14/25 05/06/25 History release 24 hr calcium polycarbophil 625 mg 625 mg PO DAILY 08/04/25 09/14/25 Unknown History tablet (Fiber-Lax) Physical Exam Vital Signs: Last Vital Signs Temp 97.1 F 09/15/25 07:43 Pulse 71 09/15/25 09:36 Resp 16 09/15/25 07:43 BP 139/86 09/15/25 09:36 Pulse Ox 97 09/15/25 07:43 O2 Del Method Room Air 09/15/25 07:43 BMI result Body Mass Index 34.5 Comfortable Neck supple no JVD. Lungs entry equal no rales. Heart S1-S2 heard no gallop or rub. Abdomen soft nontender. Neuro alert awake oriented. No asterixis. Extremities no edema. Results Lab Results 09/14/25 03:44 09/15/25 09:08 Lab results: Chemistry 09/13/25 09/14/25 09/15/25 15:22 03:44 09:08 Sodium 140 137 137 Potassium 4.5 4.3 4.9 Carbon Dioxide 21 L 20 L 24 BUN 51 H 41 H 31 H Creatinine 3.67 H 3.02 H 2.53 H Calcium 8.4 D 8.1 L 8.8 D Hematology 09/13/25 09/14/25 15:22 03:44 WBC 7.3 5.2 Hgb 10.5 L 10.0 L Plt Count 157 L D 143 L Urinalysis 09/13/25 16:10 Urine Color Yellow Urine Appearance Clear Urine pH 5.0 Ur Specific [place] 1.015 Urine Protein 30 (1+) H Urine Glucose (UA) Negative Urine Ketones Negative Urine Blood Negative Urine Nitrite Negative Ur Leukocyte Esterase Negative Urine RBC 0-2 Urine WBC 0-5 Ur Squamous Epith Cells 0-2 Hyaline Casts 0-2 Assessment and Plan (1) Acute kidney injury superimposed on chronic kidney disease: Status: Acute Plan CITLALY Is most likely due to hypoperfusion from diarrhea. Urine sodium is low suggestive of hypoperfusion. No evidence of obstruction. Recommendations Keep intake more than output Avoid hypotension. Monitor urine output. Expect renal recovery once he is euvolemic. Further workup will be based on the outcome of the baseline investigations. Shall follow along with the team Procedures Date of Service Date of Service: 09/15/25
[2025-09-15] MEDS: metroNIDAZOLE/NS 500 MG/100 ML PIGGYBACK 100 MG IV ×2 (15:09→23:24)
[2025-09-15 15:54] VITALS: BP 140/72; PULSE 58; RESP 18; TEMP 36.4; O2SAT 97
[2025-09-15 19:28] VITALS: BP 141/78; PULSE 62; RESP 19; TEMP 36.2; O2SAT 97
--- NOTE | 2025-09-16 02:03 | PC.NURSE ---
Pt resting comfortably in bed with respirations even and unlabored. This RN was informed by [facility] that the pt is sinus rhytm with a first degree AV block. HR 64. This RN informed [facility]. No new orders at this time. Will continue to monitor.
[2025-09-16 03:54] VITALS: BP 150/77; PULSE 73; RESP 19; TEMP 36.4; O2SAT 96
--- NOTE | 2025-09-16 07:34 | HO.PM.IMPN ---
Subjective Subjective Date of Service: 09/16/25 Interval History: recteal abcess ,mayte on ckd Review of Systems Review of Systems: Yes all other systems are reviewed and are negative Physical Exam Exam: Exam: Appearance: Alert.? Oriented X3.? cvs: [id number], [id number] , no murmur res: clear to auscultation ,no rhonchii or wheezing abd: no rebound or guarding ,nt, bs present. rectal: As per surgical exam note: skin breakdown perianal area from his diarrhea with tenderness ext pulses present , no cyanosis. neuro: axo3 , nonfocal. Vital Signs: Vital Signs: Last Vital Signs Temp 97.5 F 09/16/25 03:54 Pulse 73 09/16/25 03:54 Resp 19 09/16/25 03:54 BP 150/77 H 09/16/25 03:54 Pulse Ox 96 09/16/25 03:54 O2 Del Method Room Air 09/16/25 03:54 BMI result Body Mass Index 34.5 Objective Data Active Medications Acetaminophen (Acetaminophen 325 Mg Tablet) 975 mg PO Q6H PRN PRN Reason: Pain, Mild 1-3,fever,headache Last Admin: 09/15/25 20:16 Dose: 975 mg Documented By: ALEE Amlodipine Besylate (Amlodipine Besylate 5 Mg Tablet) 5 mg PO BEDTIME [facility] Last Admin: 09/15/25 20:08 Dose: 5 mg Documented By: ALEE Atorvastatin Calcium (Atorvastatin Calcium 80 Mg Tablet) 80 mg PO BEDTIME [facility] Last Admin: 09/15/25 20:08 Dose: 80 mg Documented By: ALEE Calcium Carbonate (Calcium Carbonate 750 Mg Tab.Chew) 750 mg PO Q4H PRN PRN Reason: Heartburn Cyanocobalamin (Cyanocobalamin (Vitamin B-12) 1,000 Mcg Tablet) 1,000 mcg PO DAILY [facility] Last Admin: 09/15/25 09:33 Dose: 1,000 mcg Documented By: ROSMERY Enoxaparin Sodium (Enoxaparin Sodium 40 Mg/0.4 Ml Syringe) 40 mg SUBCUT Q24H [facility] Last Admin: 09/15/25 09:33 Dose: 40 mg Documented By: ROSMERY Ferrous Sulfate (Ferrous Sulfate 324 Mg Tablet.) 324 mg PO DAILY [facility] Last Admin: 09/15/25 09:33 Dose: 324 mg Documented By: ROSMERY Gabapentin (Gabapentin 300 Mg Capsule) 300 mg PO TID [facility] Last Admin: 09/15/25 20:08 Dose: 300 mg Documented By: ALEE Hydromorphone HCl (Hydromorphone Hcl 0.5 Mg/0.5 Ml Syringe) 0.5 mg IVPUSH Q4H PRN; Protocol PRN Reason: Pain, Severe (Pain Scale 7-10) Last Admin: 09/13/25 20:42 Dose: 0.5 mg Documented By: ANDER Ciprofloxacin (Cipro) 400 mg in 200 mls @ 200 mls/hr IV Q12H [facility] Last Infusion: 09/16/25 02:32 Dose: Infused Documented By: ALEE Metronidazole (Flagyl) 500 mg in 100 mls @ 100 mls/hr IV Q8H [facility] Last Infusion: 09/16/25 00:51 Dose: Infused Documented By: ALEE Lidocaine (Lidocaine 4 % Patch Adh..Patch) 1 patch TRANSDERMA DAILY [facility] Last Admin: 09/15/25 09:34 Dose: 1 patch Documented By: ROSMERY Magnesium Hydroxide (Milk Of Magnesia 30 Ml Oral.Susp) 30 ml PO DAILY PRN PRN Reason: Constipation Melatonin (Melatonin 3 Mg Tablet) 6 mg PO BEDTIME PRN PRN Reason: Insomnia Methadone HCl (Methadone Hcl 20 Mg/2 Ml Oral.Conc) 50 mg PO DAILY [facility] Last Admin: 09/15/25 09:33 Dose: 50 mg Documented By: ROSMERY Co-signed By: ASHLEY Metoprolol Tartrate (Metoprolol Tartrate 50 Mg Tablet) 50 mg PO BID [facility]; Protocol Last Admin: 09/15/25 20:08 Dose: 50 mg Documented By: ALEE Omeprazole (Omeprazole 20 Mg Capsule.Dr) 20 mg PO DAILY@0630 [facility] Last Admin: 09/16/25 05:49 Dose: 20 mg Documented By: ALEE Sodium Chloride (0.9 % Sodium Chloride Flush 3 Ml Syringe) 3 ml IVFLUSH QSHIFT [facility] Last Admin: 09/15/25 20:09 Dose: 3 ml Documented By: ALEE Zolpidem Tartrate (Zolpidem Tartrate 5 Mg Tablet) 10 mg PO BEDTIME [facility] Last Admin: 09/15/25 20:08 Dose: 10 mg Documented By: ALEE Labs 09/14/25 03:44 09/15/25 09:08 Labs: Laboratory Results - last 24 hr 09/14/25 09/15/25 19:25 09:08 Anion Gap 13 Estim Creat Clear Calc 37.2 Estimated GFR 26 Random Glucose 133 H Calcium 8.8 D Magnesium 1.4 L* Stl C. cayetanensis PCR Not Detected Stool Rotavirus A PCR Not Detected Stl Adenov F 40/41 PCR Not Detected Stool Astrovirus (PCR) Not Detected Stool Campylobacter PCR Not Detected Stool Cryptosporidium PCR Not Detected Stl Sh Tox Pr E STEC PCR Not Detected Stool E coli O157 PCR Not applicable Stl Enterotoxigenic E PCR Not Detected Stool EPEC (PCR) Not Detected Stool EAEC (PCR) Not Detected Stl E. histolytica PCR Not Detected Stool Giardia Lamblia PCR Not Detected Stl P. shigelloides PCR Not Detected Stool Salmonella PCR Not Detected Stool Sapovirus (PCR) Not Detected Stl Shigella/EIEC PCR Not Detected St Y.enterocolitica PCR Not Detected Stool Vibrio (PCR) Not Detected Stl Vibrio cholerae PCR Not Detected Stl Norovirus GI/GII PCR Not Detected Microbiology Microbiology Results: Microbiology 09/13/25 16:58 Blood Culture - Preliminary Blood - Venous No growth after 48 hours. 09/13/25 16:55 Blood Culture - Preliminary Blood - Venous No growth after 48 hours. Assessment and Plan (1) Abscess, perirectal: Status: Acute Plan 60 y/o man with PMHx significant for Crohn's disease s/p total colectomy and colectomy reversal on Anacol, chronic ileocolitis, who presents with: Perirectal abscess. Continue empiric IV antibiotic therapy with Zosyn IV. IV fluids. Blood cultures obtained-will follow results. Surgery following Diarrhea. Avoid antidiarrheal meds for now until GI panel results. Doubt C diff as the patient has total colectomy. acute Hypomagnesemia, likely secondary to poor intake and diarrhea. Replete as needed. Continue to monitor. Acute on chronic renal injury, likely due to diarrhea. Continue IV fluids. Continue to monitor renal function. Avoid nephrotoxic agents. nephrology eval Opiate use disorder. Continue methadone. Hyperlipidemia. Continue statin. Essential hypertension. Continue metoprolol and felodipine. Code status: Full DVT prophylaxis: Lovenox ongoing need hospitalization for perirectal abscess treatment :empiric IV antibiotic therapy, patient also need IV fluids and close monitoring of renal function.if does not improve might need surgery Quality Stroke Does the patient have a stroke diagnosis?: No VTE Prior VTE?: No VTE Risk Level:: Medical - moderate - high VTE Device Contraindication: Treatment Not Indicated VTE Drug Contraindication: N/A - Med Ordered
[2025-09-16 08:15] VITALS: BP 166/89; PULSE 65; RESP 18; TEMP 36.1; O2SAT 99
--- NOTE | 2025-09-16 08:25 | PM.PNGS ---
Subjective Subjective Date of Service: 09/16/25 <Rory Kuar PA-C - Last Filed: 09/16/25 08:30> 09/16/25 <Richard Lopez MD - Last Filed: 09/16/25 11:49> Interval history: States diarrhea has resolved, having some vague abdominal pain in the lower abdomen. Feels a bit bloated. Denies nausea, vomiting. Tolerating diet <Rory Kaur PA-C - Last Filed: 09/16/25 08:30> Physical Exam Vital Signs: Vital Signs: Last Vital Signs Temp 97.0 F 09/16/25 08:15 Pulse 65 09/16/25 08:15 Resp 18 09/16/25 08:15 BP 166/89 H 09/16/25 08:15 Pulse Ox 99 09/16/25 08:15 O2 Del Method Room Air 09/16/25 08:15 BMI result Body Mass Index 34.5 <Rory Kaur PA-C - Last Filed: 09/16/25 08:30> Const: General: comfortable and no acute distress <Rory Kaur PA-C - Last Filed: 09/16/25 08:30> Orientation/consciousness: patient oriented x3 <Rory Kaur PA-C - Last Filed: 09/16/25 08:30> Resp: Effort & Inspection: normal respiratory effort and able to speak in complete sentences <Rory Kaur PA-C - Last Filed: 09/16/25 08:30> GI: Other: Perianal skin breakdown, no drainage, pustules <Rory Kaur PA-C - Last Filed: 09/16/25 08:30> Inspection: Yes distended (Mild) <Rory Kaur PA-C - Last Filed: 09/16/25 08:30> Palpation (GI): Soft to palpation and Tenderness to palpation present (GI) (Mild lower abdomen) <MILAGRO Fernandes Last Filed: 09/16/25 08:30> Percussion: Yes normal to percussion <MILAGRO Fernandes Last Filed: 09/16/25 08:30> Neuro: General: patient oriented x3 <MILAGRO Fernandes Last Filed: 09/16/25 08:30> Objective Data Active Medications Acetaminophen (Acetaminophen 325 Mg Tablet) 975 mg PO Q6H PRN PRN Reason: Pain, Mild 1-3,fever,headache Last Admin: 09/15/25 20:16 Dose: 975 mg Documented By: ALEE Amlodipine Besylate (Amlodipine Besylate 5 Mg Tablet) 5 mg PO BEDTIME [facility] Last Admin: 09/15/25 20:08 Dose: 5 mg Documented By: ALEE Atorvastatin Calcium (Atorvastatin Calcium 80 Mg Tablet) 80 mg PO BEDTIME [facility] Last Admin: 09/15/25 20:08 Dose: 80 mg Documented By: ALEE Calcium Carbonate (Calcium Carbonate 750 Mg Tab.Chew) 750 mg PO Q4H PRN PRN Reason: Heartburn Cyanocobalamin (Cyanocobalamin (Vitamin B-12) 1,000 Mcg Tablet) 1,000 mcg PO DAILY [facility] Last Admin: 09/15/25 09:33 Dose: 1,000 mcg Documented By: ROSMERY Enoxaparin Sodium (Enoxaparin Sodium 40 Mg/0.4 Ml Syringe) 40 mg SUBCUT Q24H [facility] Last Admin: 09/15/25 09:33 Dose: 40 mg Documented By: ROSMERY Ferrous Sulfate (Ferrous Sulfate 324 Mg Tablet.) 324 mg PO DAILY [facility] Last Admin: 09/15/25 09:33 Dose: 324 mg Documented By: ROSMERY Gabapentin (Gabapentin 300 Mg Capsule) 300 mg PO TID [facility] Last Admin: 09/15/25 20:08 Dose: 300 mg Documented By: ALEE Hydromorphone HCl (Hydromorphone Hcl 0.5 Mg/0.5 Ml Syringe) 0.5 mg IVPUSH Q4H PRN; Protocol PRN Reason: Pain, Severe (Pain Scale 7-10) Last Admin: 09/13/25 20:42 Dose: 0.5 mg Documented By: ANDER Ciprofloxacin (Cipro) 400 mg in 200 mls @ 200 mls/hr IV Q12H [facility] Last Infusion: 09/16/25 02:32 Dose: Infused Documented By: ALEE Metronidazole (Flagyl) 500 mg in 100 mls @ 100 mls/hr IV Q8H [facility] Last Infusion: 09/16/25 00:51 Dose: Infused Documented By: ALEE Lidocaine (Lidocaine 4 % Patch Adh..Patch) 1 patch TRANSDERMA DAILY [facility] Last Admin: 09/15/25 09:34 Dose: 1 patch Documented By: ROSMERY Magnesium Hydroxide (Milk Of Magnesia 30 Ml Oral.Susp) 30 ml PO DAILY PRN PRN Reason: Constipation Melatonin (Melatonin 3 Mg Tablet) 6 mg PO BEDTIME PRN PRN Reason: Insomnia Methadone HCl (Methadone Hcl 20 Mg/2 Ml Oral.Conc) 50 mg PO DAILY [facility] Last Admin: 09/15/25 09:33 Dose: 50 mg Documented By: ROSMERY Co-signed By: ASHLEY Metoprolol Tartrate (Metoprolol Tartrate 50 Mg Tablet) 50 mg PO BID [facility]; Protocol Last Admin: 09/15/25 20:08 Dose: 50 mg Documented By: ALEE Omeprazole (Omeprazole 20 Mg Capsule.Dr) 20 mg PO DAILY@0630 [facility] Last Admin: 09/16/25 05:49 Dose: 20 mg Documented By: ALEE Sodium Chloride (0.9 % Sodium Chloride Flush 3 Ml Syringe) 3 ml IVFLUSH QSHIFT [facility] Last Admin: 09/15/25 20:09 Dose: 3 ml Documented By: ALEE Zolpidem Tartrate (Zolpidem Tartrate 5 Mg Tablet) 10 mg PO BEDTIME [facility] Last Admin: 09/15/25 20:08 Dose: 10 mg Documented By: ALEE <Royr Kaur PA-C - Last Filed: 09/16/25 08:30> Labs CBC & Chem 7: 09/14/25 03:44 09/16/25 08:13 <Rory Kaur PA-C - Last Filed: 09/16/25 08:30> Labs: Laboratory Results - last 24 hr 09/14/25 09/15/25 19:25 09:08 Anion Gap 13 Estim Creat Clear Calc 37.2 Estimated GFR 26 Random Glucose 133 H Calcium 8.8 D Magnesium 1.4 L* Stl C. cayetanensis PCR Not Detected Stool Rotavirus A PCR Not Detected Stl Adenov F PCR Not Detected Stool Astrovirus (PCR) Not Detected Stool Campylobacter PCR Not Detected Stool Cryptosporidium PCR Not Detected Stl Sh Tox Pr E STEC PCR Not Detected Stool E coli O157 PCR Not applicable Stl Enterotoxigenic E PCR Not Detected Stool EPEC (PCR) Not Detected Stool EAEC (PCR) Not Detected Stl E. histolytica PCR Not Detected Stool Giardia Lamblia PCR Not Detected Stl P. shigelloides PCR Not Detected Stool Salmonella PCR Not Detected Stool Sapovirus (PCR) Not Detected Stl Shigella/EIEC PCR Not Detected St Y.enterocolitica PCR Not Detected Stool Vibrio (PCR) Not Detected Stl Vibrio cholerae PCR Not Detected Stl Norovirus GI/GII PCR Not Detected <Rory Kaur PA-C - Last Filed: 09/16/25 08:30> Microbiology Microbiology Results: Microbiology 09/13/25 16:58 Blood Culture - Preliminary Blood - Venous No growth after 48 hours. 09/13/25 16:55 Blood Culture - Preliminary Blood - Venous No growth after 48 hours. <Rory Kaur PA-C - Last Filed: 09/16/25 08:30> Procedures Date of Service Date of Service: 09/16/25 <Rory Kaur PA-C - Last Filed: 09/16/25 08:30> 09/16/25 <Richard Lopez MD - Last Filed: 09/16/25 11:49> Progress Note: A&P Assessment and plan (1) Abscess, perirectal: Status: Acute <Rory Kaur PA-C - Last Filed: 09/16/25 08:30> Assessment and Plan: Describes more of a burning around the perianal area Likely due to skin breakdown No fluctuance, induration in the posterior perianal area where CAT scan findings seemed to point has a small abscess Would not do any surgical intervention for the abscess this time Treat for diarrhea and skin breakdown Seen and examined independently , <Richard Lopez MD - Last Filed: 09/16/25 11:49> Assessment and Plan: 60 year old male followed by general surgery for small perianal abscess, rectal pain secondary to diarrhea. No longer having diarrhea. He continues to have pain the anus, although improving now that Diarrhea resolved. On exam, he has breakdown of the perianal skin, there is no fluctuance or fluid collection. The area actually looks improved today, unable to appreciate any abscess formation. Remains Very tender to palpation. There is fecal matter on the skin here, likely worsening this symptoms and skin breakdown. No surgical intervention at this time, will continue to follow for possible drainage if needed. control diarrhea good hygiene after BM recommend barrier cream <Rory Kaur PA-C - Last Filed: 09/16/25 08:30> Time Spent With Patient Time: Total time managing care of this patient today ____ minutes. <Rory Kaur PA-C - Last Filed: 09/16/25 08:30> Quality Stroke Does the patient have a stroke diagnosis?: No <Rory Kaur PA-C - Last Filed: 09/16/25 08:30> VTE Prior VTE?: No <Rory Kaur PA-C - Last Filed: 09/16/25 08:30> VTE Risk Level:: Medical - moderate - high <Rory Kaur PA-C - Last Filed: 09/16/25 08:30> VTE Device Contraindication: Treatment Not Indicated <Rory Kaur PA-C - Last Filed: 09/16/25 08:30> VTE Drug Contraindication: N/A - Med Ordered <Rory Kaur PA-C - Last Filed: 09/16/25 08:30>
[2025-09-16] MEDS: Lidocaine 4 % Patch ADH..PATCH 1 PATCH TRANSDERMA (08:33)
[2025-09-16] MEDS: Ferrous Sulfate 324 MG TABLET.DR PO (08:33)
[2025-09-16] MEDS: 0.9 % Sodium Chloride Flush 3 ML SYRINGE IVFLUSH ×2 (08:34→16:05)
[2025-09-16] MEDS: metroNIDAZOLE/NS 500 MG/100 ML PIGGYBACK 100 MG IV (08:34)
[2025-09-16] MEDS: methADONE HCl 20 MG/2 ML ORAL.CONC 50 MG PO (08:34)
[2025-09-16 08:39] LABS: Anion Gap 15 (12-20); Blood Urea Nitrogen 30 mg/dL (9-16); Calcium 8.7 mg/dL (8.4-10.2); Carbon Dioxide 20 mmol/L (22-29); Chloride 106 mmol/L (96-108); Creatinine Clr Calc Pharmacy 41.3; Estimated Glomerular Filt Rate 29; Magnesium 1.7 mg/dL (1.6-2.6); Potassium 4.6 mmol/L (3.3-5.1); Sodium 136 mmol/L (135-145)
[2025-09-16 12:26] VITALS: BP 141/83; PULSE 64; RESP 18; TEMP 36.7; O2SAT 97
--- NOTE | 2025-09-16 13:46 | P.PNNP_ITS ---
Subjective Subjective Date of Service: 09/16/25 Interval history: Feels better today. Less diarrhea. Physical Exam 2 Vital Signs: Vital Signs: Last Vital Signs Temp 98.0 F 09/16/25 12:26 Pulse 64 09/16/25 12:26 Resp 18 09/16/25 12:26 BP 141/83 H 09/16/25 12:26 Pulse Ox 97 09/16/25 12:26 O2 Del Method Room Air 09/16/25 12:26 BMI result Body Mass Index 34.5 Comfortable Neck supple no JVD. Lungs entry equal no rales. Heart S1-S2 heard no gallop or rub. Abdomen soft nontender. Neuro alert awake oriented. No asterixis. Extremities no edema. Objective Data Labs 09/14/25 03:44 09/16/25 08:13 Labs: Laboratory Results - last 24 hr 09/16/25 08:13 Sodium 136 Potassium 4.6 Chloride 106 Carbon Dioxide 20 L Anion Gap 15 BUN 30 H Creatinine 2.28 H Estim Creat Clear Calc 41.3 Estimated GFR 29 Random Glucose 80 Calcium 8.7 Magnesium 1.7 Microbiology Microbiology Results: Microbiology 09/13/25 16:58 Blood - Venous Blood Culture - Preliminary No growth after 48 hours. 09/13/25 16:55 Blood - Venous Blood Culture - Preliminary No growth after 48 hours. Procedures Date of Service Date of Service: 09/16/25 Assessment & Plan Assessment and plan (1) Acute kidney injury superimposed on chronic kidney disease: Status: Acute Plan CITLALY due to hypoperfusion Urine sodium was low. Renal function is gradually improving. Keep intake more than output. Continue to avoid nephrotoxic agents. History of cocaine use. Check CPK levels Shall follow along with the team Time Spent With Patient Time: Total time managing care of this patient today ____ minutes. Progress Note: Quality Stroke Does the patient have a stroke diagnosis?: No
--- NOTE | 2025-09-16 15:46 | P.DS_ITS ---
DS: Providers Provider Date of Service: 09/16/25 Date of admission: 09/13/25 19:44 Date of discharge: 09/16/25 Primary care physician: Dariela Scott MD Consults: 09/13/25 20:21 Consult to General Surgery Routine Consulting Provider: [facility] Reason for consultation: Perirectal abscess Has provider been notified: Yes 09/13/25 20:30 Consult to Gastroenterology Routine Consulting Provider: [facility] Reason for consultation: History of Crohn's disease, chronic ileocolitis, acute diarrhea Has provider been notified: No 09/14/25 04:23 Consult to Nephrology Routine Consulting Provider: Segundo Cobb Reason for consultation: Acute on chronic renal disease Has provider been notified: No Attending physician on discharge: Dawson Marte Discharging clinician: Dawson Marte DS: Diagnosis Discharge Diagnosis (1) Acute kidney injury superimposed on chronic kidney disease: Status: Acute DS: Summary Hospital Course Hospital Course: HPI:60 years old man with past medical history significant for Crohn's disease status post total colectomy and colectomy reversal on Anacol, chronic ileocolitis, opiate use disorder on methadone, c.diff and CKD stage 3B presents to the emergency department complaining of nonbloody watery diarrhea over the last 3 days. He does complain of associated irritation of the perirectal area. He reported suggestive fever, chills and generalized abdominal cramp. He denied any headache, palpitations, dizziness or loss of consciousness. He denied any acute cardiopulmonary, gastrointestinal or genitourinary symptoms. He does not recall the name of his medications. In the ED, he was found to have stable vital signs. Blood workup was showed no leukocytosis. There is no lactic acidosis. Hemoglobin is 10.5 and at baseline. Platelets are 157. There are no significant electrolyte imbalances except for hyperchloremia and CO2 21, BUN 51 and creatinine 3.67. Magnesium is 1.3. Troponin 6.1 and pro BNP 130. Urinalysis is unremarkable, but protein 1+. Abdomen and pelvis CT scan without contrast showed a new 1.7 cm perirectal abscess. CXR is negative. ECG showed normal sinus rhythm without acute ischemic changes. ED tx: Magnesium 1 g IV, NS 1 L bolus, metronidazole 500 mg IV, Dilaudid 1 g IV, Zosyn 3.75 mg IV. hospital course: 60 y/o man with PMHx significant for Crohn's disease s/p total colectomy and colectomy reversal on Anacol, chronic ileocolitis, who presents with admitted with possible Perirectal abscess : ct abd : New 1.7 cm perirectal abscess. started on empiric IV antibiotic therapy with Zosyn IV. IV fluids. Blood cultures negative -seen by surgery: With the above supportive care IV antibiotics and hydration and IV antibiotics-seems to be improved, diarrhea also resolved. Stool for C diff negative, Gi panel negative , blood culture negative at 48 hours. In addition acute hypomagnesemia possibly in the setting of diarrhea: Repleted and resolved. Case reviewed with GI and surgery: Patient seems to be improved significantly so patient will be going home with p.o. antibiotics. Patient possibly need outpatient MRI with GI outpatient. Also further use of need anti-TNF therapy in future once abscess is controlled. Acute on chronic renal injury, likely due to diarrhea. Continue IV fluids. Continue to monitor renal function. Avoid nephrotoxic agents. Seen by Nephrology: Patient creatinine is improving significantly with the IV hydration, creatinine is near 2.2 range, discussed with nephrology hold lisinopril for now until repeat BMP outpatient and then introduce lisinopril outpatient. Follow up with Nephrology outpatient plan: ciproflox and flagyl for 2 week follow up abd/pelvis mri outpatient . hold linsiopril for 1 week and moniter bmp. added magnesium po take as prescribed. follow up with pcp and Gi ,nephrology,surgery outpatient. Above management discussed with the patient in detail length he understand and in agreement with the above plan, time spent 50 minute. Time Attestation Total time managing care of this patient today: 50 mintues. Discharge Coordination Time (in mins): 50 min Quality: Safe Use of Opioids Does Pt have an Active Cancer Diagnosis on the Problem List?: No Quality: Stroke Does the patient have a stroke diagnosis?: No Physical Exam Exam: Exam: Appearance: Alert.? Oriented X3.? cvs: [id number], [id number] , no murmur res: clear to auscultation ,no rhonchii or wheezing abd: no rebound or guarding ,nt, bs present. rectal: As per surgical exam note: skin breakdown perianal area improving , pain also impproved significantly. ext pulses present , no cyanosis. neuro: axo3 , nonfocal. Vital Signs: Vital Signs: Last Vital Signs Temp 98.0 F 09/16/25 12:26 Pulse 64 09/16/25 12:26 Resp 18 09/16/25 12:26 BP 141/83 H 09/16/25 12:26 Pulse Ox 97 09/16/25 12:26 O2 Del Method Room Air 09/16/25 12:26 BMI result Body Mass Index 34.5 DS: Data Data Completed and Pending Labs on day of discharge: Laboratory Results - last 24 hr 09/16/25 08:13 Sodium 136 Potassium 4.6 Chloride 106 Carbon Dioxide 20 L Anion Gap 15 BUN 30 H Creatinine 2.28 H Estim Creat Clear Calc 41.3 Estimated GFR 29 Random Glucose 80 Calcium 8.7 Magnesium 1.7 Preliminary micro results at discharge 09/13/25 16:58 Blood Culture - Preliminary Blood - Venous No growth after 48 hours. 09/13/25 16:55 Blood Culture - Preliminary Blood - Venous No growth after [address] scan - abdomen: My impression: ct abd: New 1.7 cm perirectal abscess. Discharge Plan Discharge Anticipated Discharge Date/Time: 09/16/25 15:33 Patient Disposition: Home, Self-Care Discharge Diagnosis: diarrhae ,possible mild rectal abcess Referrals: Mc Cisneros MD [Physician, Nephrology] - 1 Week Dariela Zapata MD [Primary Care Provider, Internal Medicine] - 1 Week Rory Kaur PA-C [Physician Exploration Manager, General Surgery] - 1 Week Taryn Lazcano MD [Physician, Gastroenterology] - 1 Week Discharge Medications: New mesalamine 400 mg Capsule (With Del Rel Tablets) 500 mg PO TID Qty: 90 0RF ciprofloxacin HCl [Cipro] 500 mg tablet 500 mg PO BID Qty: 26 0RF metronidazole 500 mg tablet 500 mg PO BID Qty: 26 0RF magnesium oxide 400 mg (241.3 mg magnesium) Tablet 400 mg PO DAILY Qty: 14 0RF Continued metoprolol tartrate 50 mg tablet 50 mg PO BID zolpidem 10 mg tablet 1 tab PO BEDTIME rosuvastatin 40 mg tablet 40 mg PO BEDTIME ferrous gluconate 324 mg (38 mg iron) tablet 1 tab PO DAILY cyanocobalamin (vitamin B-12) 1,000 mcg tablet 1 tab PO DAILY lidocaine 5 % adhesive patch,medicated 1 patch topical DAILY gabapentin 300 mg capsule 300 mg PO TID methadone 10 mg/mL Concentrate 50 mg PO DAILY felodipine 5 mg tablet extended release 24 hr 5 mg PO BEDTIME acetaminophen 650 mg tablet extended release 650 mg PO Q8H PRN (Reason: mild pain) pantoprazole 40 mg tablet,delayed release (DR/EC) 40 mg PO DAILY@0630 calcium polycarbophil [Fiber-Lax] 625 mg tablet 625 mg PO DAILY (DME) miscellaneous medical supply Misc See Rx Instructions .Route Qty: 1 0RF Rx Instructions: As directed Held lisinopril 20 mg tablet 20 mg PO DAILY Hold Instructions: Resume on 09/22/25. Discharge Orders: Discharge Order (Routine); Ordered 09/16/25 Ordered By: Dawson Marte Diet: Advance to usual diet Activity on Discharge: As tolerated Stand Alone Forms: Patient Portal Discharge page Print Language: Maltese Other Ambulatory Orders: Basic Metabolic Panel (Routine) Timeframe: 1 Week Facility: [facility] - Location: Laboratory Ordered By: Dawson Marte Magnesium (Routine) Timeframe: 1 Week Facility: [facility] - Location: Laboratory Ordered By: Dawson Marte Care Plan Goals: ciproflox and flagyl for 2 week follow up abd/pelvis mri outpatient . hold linsiopril for 1 week and moniter bmp. added magnesium po take as prescribed. follow up with pcp and Gi ,nephrology,surgery outpatient. Health Concerns: as above. Plan of Treatment: as above. Assessment: as above. Patient Instructions: Rectal Abscess (DC) Discharge Date/Time: 09/16/25 17:07
--- NOTE | 2025-09-16 15:47 | MHC.CM.PN ---
Patient is discharged to home self care. He has arranged transportation home.
--- NOTE | 2025-09-16 16:01 | P.PNGI_ITS ---
Subjective Subjective Date of Service: 09/16/25 Interval History: Patient seen and evaluated bedside. Reports no abdominal pain, nausea, vomiting. Has been tolerating diet. Reports perianal burning and pain is better. Bowel movements are now formed. Critical Care Time (minutes): 0 Physical Exam 2 Exam: Exam: Appears younger than stated age No acute distress Nonicteric Abdomen soft, mildly distended, nontender Vital Signs: Vital Signs: Last Vital Signs Temp 98.0 F 09/16/25 12:26 Pulse 64 09/16/25 12:26 Resp 18 09/16/25 12:26 BP 141/83 H 09/16/25 12:26 Pulse Ox 97 09/16/25 12:26 O2 Del Method Room Air 09/16/25 12:26 BMI result Body Mass Index 34.5 Objective Data Labs 09/14/25 03:44 09/16/25 08:13 Labs: Laboratory Results - last 24 hr 09/16/25 08:13 Sodium 136 Potassium 4.6 Chloride 106 Carbon Dioxide 20 L Anion Gap 15 BUN 30 H Creatinine 2.28 H Estim Creat Clear Calc 41.3 Estimated GFR 29 Random Glucose 80 Calcium 8.7 Magnesium 1.7 Total Creatine Kinase 75 Microbiology Microbiology Results: Microbiology 09/13/25 16:58 Blood - Venous Blood Culture - Preliminary No growth after 48 hours. 09/13/25 16:55 Blood - Venous Blood Culture - Preliminary No growth after 48 hours. 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 Abscess likely 2/2 crohns flare up. C diff and GI panel negative. Patient noncompliant with treatment plan, missed his Stelara shot last month. Also left before getting his pouch endoscopy done last month. Labs suggestive of recent polysubstance use. Patient was counseled in detail regarding compliance to medication to avoid further disease progression and complications such as perforation, stricture, need for surgery. plan: - agree with p.oMalik chaudhry and yl - will need at least 14-21 days of antimicrobial therapy - outpatient MRI abdomen and pelvis ordered. Discussed with Dr Osborne and radiology aware to book this within 7-10 days - msg sent to infusion suite to book for catch up stelara dose - Stelara levels also drawn 09/15 and pending. Will help to distinguish whether has non-response to stelara vs inadequate drug levels - if has low levels, may need accelerated dosing - if has non-response may need anti-TNF therapy in future once abscess is controlled - outpatient GI follow up will be scheduled Time Spent With Patient Time: Total time managing care of this patient today ____ minutes. Quality Stroke Does the patient have a stroke diagnosis?: No VTE Prior VTE?: No VTE Risk Level:: Medical - moderate - high VTE Device Contraindication: Treatment Not Indicated VTE Drug Contraindication: N/A - Med Ordered
[2025-09-16 16:26] VITALS: BP 167/86; PULSE 65; RESP 18; TEMP 37; O2SAT 96
[2025-09-20 02:49] LABS: Calprotectin, Fecal 479 mcg/g
== END 2025-09-16 17:07 | disposition home or self-care (01) | DRG 245 ==
LOC: HO.ED 16:56 → HO.EDOVER 20:01 → HO.S3 09-14 19:45
PROVIDERS: Internal Medicine; Admitting Provider Internal Medicine; Emergency Provider Emergency Medicine; PCP Internal Medicine; Visit Provider Internal Medicine
DX: K50.114 Crohn's disease of large intestine with abscess (principal); N17.9 Acute kidney failure, unspecified; K61.1 Rectal abscess; F11.20 Opioid dependence, uncomplicated; I12.9 Hypertensive chronic kidney disease with stage 1 through stage 4 chronic kidney disease, or unspecified chronic kidney disease; N18.32 Chronic kidney disease, stage 3b; E78.5 Hyperlipidemia, unspecified; E83.42 Hypomagnesemia; Z91.148 Patient's other noncompliance with medication regimen for other reason; Z79.620 Long term (current) use of immunosuppressive biologic; Z79.899 Other long term (current) drug therapy
CPT/HCPCS: 36415; 71046; 74176; 80048; 80299; 81001; 82542; 82550; 83605; 83631; 83735; 83880; 83993; 84484; 85025; 87040; 87493; 87507; 93005; 99285; J0744; J1171; J1650; J1836; J2543; J3475; J7120

== ENCOUNTER → 2025-09-13 14:04 | Outpatient (BNV) | payer MEDICAID, SELFPAY | PROVIDERS: Admitting Provider Internal Medicine; Emergency Provider Emergency Medicine; PCP Internal Medicine; Visit Provider Internal Medicine | DX: R07.9 Chest pain, unspecified (principal) | CPT/HCPCS: 93010 ==

== ENCOUNTER → 2025-09-13 15:15 | Outpatient (BNV) | payer MEDICAID, SELFPAY | PROVIDERS: Emergency Provider Emergency Medicine; PCP Internal Medicine; Visit Provider Radiology Diagnostic Radiology | DX: K61.1 Rectal abscess (principal); R07.9 Chest pain, unspecified | CPT/HCPCS: 71046; 74176 ==

== ENCOUNTER → 2025-09-13 19:44 | Outpatient (BNV) | payer MEDICAID, SELFPAY | PROVIDERS: Admitting Provider Internal Medicine; Emergency Provider Emergency Medicine; PCP Internal Medicine; Visit Provider Surgery | DX: K61.1 Rectal abscess (principal) | CPT/HCPCS: 99232 ==

== ENCOUNTER → 2025-09-13 19:44 | Outpatient (BNV) | payer MEDICAID, SELFPAY | PROVIDERS: Admitting Provider Internal Medicine; Emergency Provider Emergency Medicine; PCP Internal Medicine; Visit Provider Internal Medicine Hypertension Specialist | DX: N17.9 Acute kidney failure, unspecified (principal); N18.9 Chronic kidney disease, unspecified; E83.42 Hypomagnesemia | CPT/HCPCS: 99223; 99232 ==

== ENCOUNTER → 2025-09-13 19:44 | Outpatient (BNV) | payer MEDICAID, SELFPAY | PROVIDERS: Admitting Provider Internal Medicine; Emergency Provider Emergency Medicine; PCP Internal Medicine; Visit Provider Internal Medicine | DX: K61.1 Rectal abscess (principal); N17.9 Acute kidney failure, unspecified; N18.9 Chronic kidney disease, unspecified; E83.42 Hypomagnesemia | CPT/HCPCS: 99223; 99232; 99239 ==

== ENCOUNTER → 2025-09-13 19:44 | Outpatient (BNV) | payer MEDICAID, SELFPAY | PROVIDERS: Admitting Provider Internal Medicine; Emergency Provider Emergency Medicine; PCP Internal Medicine; Visit Provider Internal Medicine | DX: K50.80 Crohn's disease of both small and large intestine without complications (principal); K61.1 Rectal abscess; Z91.148 Patient's other noncompliance with medication regimen for other reason | CPT/HCPCS: 99232 ==

== ENCOUNTER 2025-09-19 12:14 | Outpatient (REF) | payer MEDICAID, SELFPAY ==
--- NOTE | ~2025-09-19 | MR_ITS ---
EXAMINATION: MR PELVIS WITHOUT IV CONTRAST HISTORY: K61.1 - Rectal abscess. TECHNIQUE: Axial T1, axial fat-suppressed T2, and sagittal and coronal T2-weighted MR images of the pelvis were obtained. The patient became contrast or pelvic necessitating termination of the examination. IV contrast was not administered. COMPARISON: Correlation is made with an unenhanced CT of the pelvis dated 09/13/2025. FINDINGS: The examination is degraded by patient motion. There is ill-defined markedly hypoechoic tissue posterior to the rectum and anterior to the sacrum. A small amount of fluid is likely present. Evaluation is extremely limited by patient motion and lack of intravenous contrast material. There is a large amount of stool in the rectum. The prostate is normal in size. The urinary bladder is collapsed. MR/MR pelvis wo con IMPRESSION: Nondiagnostic examination due to patient claustrophobia. Ill-defined hypoechoic tissue in the presacral space. Electronically signed by: J Luis Hugo MD 09/19/2025 01:50 PM [facility] [place]
== END 2025-09-19 12:15 | disposition home or self-care (01) ==
LOC: HO.MRI 12:14
PROVIDERS: PCP Internal Medicine; Visit Provider Internal Medicine
DX: K61.1 Rectal abscess (principal)
CPT/HCPCS: 72195

== ENCOUNTER → 2025-09-19 12:28 | Outpatient (BNV) | payer MEDICAID, SELFPAY | PROVIDERS: PCP Internal Medicine; Visit Provider Radiology Diagnostic Radiology | DX: K61.1 Rectal abscess (principal); F40.240 Claustrophobia | CPT/HCPCS: 72195 ==

== ENCOUNTER 2025-10-11 07:38 | Emergency (ER) | payer MEDICAID, SELFPAY ==
--- NOTE | ~2025-10-11 | CT_ITS ---
CLINICAL HISTORY: abdominal pain Hx chrohns CT ABDOMEN AND PELVIS WITHOUT CONTRAST Comparison: CT/REG/SR - CT ABDOMEN PELVIS WO IV CON - 09/13/25 17:03 EDT Findings: Scattered atelectasis and/or scarring. No basilar consolidation or pleural effusion. No acute abnormalities in the unenhanced solid organs. No renal or ureteral calculus. No large calcified gallstone. Atherosclerotic changes; no AAA. No bowel obstruction, pneumoperitoneum, or pneumatosis. Subtotal colectomy changes. There are anastomotic sutures in the right lower quadrant. Multiple right-sided small bowel loops are mildly distended with fecal material. Soft tissue density/thickening adjacent to the rectum. No measurable fluid collection on noncontrast imaging. No free fluid. The appendix is not visualized. Stable mild prostatomegaly. No significant urinary bladder wall thickening. Redemonstration of multiple small mesenteric, iliac and inguinal lymph nodes. Bilateral fat containing inguinal hernias. The bones are intact. Redemonstration of ventral herniorrhaphy changes. Probable bilateral sacroiliitis, unchanged. IMPRESSION: 1. Perirectal soft tissue density/ thickening probably represents a residual abscess cavity with no measurable fluid collection identified at this time. 2. Small bowel fecalization can be seen with dysmotility. No obstruction or ascites. 3. No acute obstructive uropathy or urolithiasis. This document has been electronically signed by: Daily Moffett DO on 10/11/2025 09:38:25
[2025-10-11 07:46] VITALS: BP 221/119; PULSE 77; RESP 20; TEMP 36.9; O2SAT 98; BMI 34.7
--- NOTE | 2025-10-11 08:26 | ED.NAVMDI ---
HPI - Nausea/Vomiting/Diarrhea General Chief complaint: Abdominal Pain Stated complaint: Medication Refill Time Seen by Provider: 10/11/25 07:57 Source: patient Mode of arrival: ambulatory Limitations: no limitations History of Present Illness HPI Narrative: This is a 60 years old the patient with a history of Crohn's disease, history of chronic renal insufficiency hypertension substance abuse presented to the emergency department with a chief complaint of diarrhea for about 2 days no vomiting MD elicited complaint: diarrhea Onset (ago): day(s) (2) Description of vomiting: watery Description of diarrhea: watery Associated nausea: No Associated abdominal pain: No Severity: moderate Quality: cramping Relieving factors: none Related Data Home Medications ?Medication ?Instructions ?Recorded ?Confirmed metoprolol tartrate 50 mg tablet 50 mg PO BID 03/03/21 09/14/25 rosuvastatin 40 mg tablet 40 mg PO BEDTIME 03/03/21 09/14/25 zolpidem 10 mg tablet 1 tab PO BEDTIME 03/03/21 09/14/25 ferrous gluconate 324 mg (38 mg 1 tab PO DAILY 06/30/21 09/14/25 iron) tablet lidocaine 5 % topical patch 1 patch topical DAILY 08/20/21 09/14/25 cyanocobalamin (vitamin B-12) 1 tab PO DAILY 07/07/22 09/14/25 1,000 mcg tablet gabapentin 300 mg capsule 300 mg PO TID 02/17/23 09/14/25 methadone 10 mg/mL oral concentrate 50 mg PO DAILY 02/17/23 09/14/25 lisinopril 20 mg tablet 20 mg PO DAILY 11/01/24 09/14/25 Held on 09/16/25. Instructions: Resume on 09/22/25. pantoprazole 40 mg tablet,delayed 40 mg PO DAILY@0630 11/01/24 09/14/25 release acetaminophen 650 mg 650 mg PO Q8H PRN mild pain 05/07/25 09/14/25 tablet,extended release felodipine 5 mg tablet,extended 5 mg PO BEDTIME 05/07/25 09/14/25 release 24 hr calcium polycarbophil 625 mg 625 mg PO DAILY 08/04/25 09/14/25 tablet (Fiber-Lax) Previous Rx's ?Medication ?Instructions ?Recorded miscellaneous medical supply #1 ea 09/22/25 ciprofloxacin HCl 500 mg tablet 500 mg PO BID #26 tabs 09/16/25 (Cipro) magnesium oxide 400 mg (241.3 mg 400 mg PO DAILY #14 tabs 09/16/25 magnesium) tablet mesalamine 400 mg capsule (with 500 mg (1.25 x 400 mg) PO TID #90 09/16/25 delayed release tablets inside) ea metronidazole 500 mg tablet 500 mg PO BID #26 tabs 09/16/25 ciprofloxacin HCl 500 mg tablet 500 mg PO BID #14 tabs 10/11/25 (Cipro) metronidazole 500 mg tablet 500 mg PO Q8H 7 days #21 tabs 10/11/25 Allergies Allergy/AdvReac Type Severity Reaction Status Date / Time Iodinated Contrast Media (IV Allergy Intermediate HIVES Verified 10/11/25 07:50 CONTRAST) prednisone (PREDNISONE) Allergy Mild RASH Verified 10/11/25 07:50 Review of Systems Constitutional: Constitutional: Reports no additional constitutional complaints Cardiovascular: Cardiovascular: Reports no additional cardiovascular complaints Gastrointestinal: Gastrointestinal: Reports no additional gastrointestinal complaints and Reports nausea PMFSH Past Medical History Attestation statement: The following information was validated with the patient. Medical History Crohn's disease of both small and large intestine Clostridium difficile carrier Opioid use disorder Constipation CKD (chronic kidney disease) Ulcerative colitis HLD (hyperlipidemia) Colitis HTN (hypertension) Surgical History History of esophagogastroduodenoscopy (EGD) Hx of colonoscopy H/O total colectomy H/O cervical spine surgery History of colostomy reversal Family History Family History Mother Stroke Diabetes mellitus HTN (hypertension), benign Hyperlipidemia Brother Diabetes mellitus Social History Social History Household Members: None Housing: House Housing Other:: Rents a room Do you presently have visiting nurse or other home services: No Alcohol intake: former Comment: Chirag Patient Tobacco Use Status: Never used Tobacco e-Cigarette/Vaping Use: Never Used Second Hand Smoke Exposure: No Substance Use Type: Heroin Advance Directives: Yes Advance Directives on File: Yes Advance Directives Date on File: 03/08/21 Do you have a plan to hurt others: No Plan service: No Current occupational status: unemployed Physical Exam Exam: Exam: Not acute distress looks well blood pressure noted but he has not been taking his BP meds Vital Signs: Vital Signs: Last Vital Signs Temp 98.3 F 10/11/25 10:20 Pulse 80 10/11/25 10:20 Resp 16 10/11/25 10:20 BP 189/114 H 10/11/25 10:20 Pulse Ox 98 10/11/25 10:20 O2 Del Method Room Air 10/11/25 10:20 BMI result Body Mass Index 34.7 Const: General: cooperative Nutritional Appearance: well nourished Orientation/consciousness: patient oriented x3 HEENT: Head: Yes normal to inspection Ears: hearing grossly normal bilaterally General nose exam: Normal external nose present Face and sinus: Yes normal facial exam Mouth: Normal oral and palatal mucosa present Neck: Neck: Yes normal visual inspection Chest: Chest palpation & inspection: normal inspection of the chest Resp: Auscultation: clear to auscultation bilaterally Cardio: Jugular venous distension: no JVD Rate: regular rate Rhythm: regular rhythm GI: Other: recyala area very irritated see picture Inspection: Yes normal to inspection Palpation (GI): Soft to palpation, not firm, nontender and no guarding Auscultation: normal bowel sounds : Other: recta Skin: General skin exam: no rashes or lesions noted and elasticity normal Neuro: General: patient oriented x3 Medications Administered Discontinued Medications Generic Name Dose Route Start Last Admin Trade Name Freq PRN Reason Stop Dose Admin Amlodipine Besylate 10 mg 10/11/25 08:18 10/11/25 08:27 Amlodipine Besylate 10 Mg Tablet PO 10/11/25 08:19 10 mg ONCE ONE Administration Protocol Diazepam 5 mg 10/11/25 10:23 10/11/25 10:29 Diazepam 5 Mg Tablet PO 10/11/25 10:24 5 mg ONCE ONE Administration Morphine Sulfate 4 mg 10/11/25 09:15 10/11/25 09:25 Morphine Sulfate 4 Mg/Ml Cartridge IVPUSH 10/11/25 09:16 4 mg ONCE ONE Administration Protocol Medical Decision Making Medical Decision Making MDM Narrative: Patient presented to the ED with a chief complaint of diarrhea we will obtain labs tried to call let a specimen of stools 12:00 labs showed a normal white count cat scan does not showed bowel obstruction or colitis,? perirectal residual abscess the examination of the rectum showed no that he has a evidence of proctitis, I reviewed the case with the zigzag appliquer Dr. Silva who follow the patient as outpatient for Crohn's recommendation was to discharge the patient home on ciprofloxacin 500 mg b.i.d. and Flagyl every 8 hours he will see the patient in the office patient is very comfortable with the plan of care at this time we will discharge the patient home Differential Diagnosis Differential Diagnoses: The differential diagnosis associated with the presentation includes C diff colitis/viral syndrome/exacerbation of Crohn's Admission/Observation Consideration of admission/observation: Escalation of care including admission/observation considered Lab Data 10/11/25 08:23 10/11/25 09:07 Labs: Lab Results 10/11/25 10/11/25 Range/Units 08:23 09:07 WBC 8.0 (4.8-10.8) X10*3/uL RBC 4.13 L D (4.60-5.80) X10*6/uL Hgb 12.0 L (14.0-18.0) g/dl Hct 37.8 L (42.0-52.0) % MCV 91.5 (80.0-98.0) fL MCH 29.1 (27.0-33.0) pg MCHC 31.7 (31.0-36.0) g/dl RDW 14.6 (11.0-16.0) % Plt Count 256 D (160-400) X10*3/uL MPV 9.7 (9.4-12.4) fL Immature Gran % (Auto) 0.2 (0.0-0.4) % Neut % (Auto) 69.1 (45-73) % Lymph % (Auto) 19.4 L (20-40) % [place] % (Auto) 8.6 (2-11) % Eos % (Auto) 2.1 (0-4) % Baso % (Auto) 0.6 (0-2) % Lymph # (Auto) 1.6 (1.2-4.9) X10*3/uL [place] # (Auto) 0.7 (0.1-1.2) X10*3/uL Eos # (Auto) 0.2 (0.0-0.4) X10*3/uL Baso # (Auto) 0.1 (0.0-0.2) X10*3/uL Abs Immat Gran (auto) 0.02 (0.00-0.03) X10*3/uL Absolute Neuts (auto) 5.6 (2.0-8.3) x10*3/uL Absolute Nucleated RBC 0.000 (0.0-0.012) X10*3/uL Nucleated RBC % (auto) 0.0 (0.0-0.2) /100WBC Sodium 139 (135-145) mmol/L Potassium 4.6 (3.3-5.1) mmol/L Chloride 108 (96-108) mmol/L Carbon Dioxide 22 (22-29) mmol/L Anion Gap 14 (12-20) BUN 23 H (9-16) mg/dL Creatinine 1.76 H (0.5-1.4) mg/dL Estim Creat Clear Calc 53.6 Estimated GFR 40 Random Glucose 104 (60-115) mg/dL Calcium 9.5 D (8.4-10.2) mg/dL Total Bilirubin 0.3 (0.0-1.0) mg/dL Direct Bilirubin 0.1 (0.0-0.5) mg/dL AST 30 (5-37) U/L ALT 26 (0-40) U/L Alkaline Phosphatase 82 (39-117) U/L Total Protein 8.5 H (6.5-8.0) g/dL Albumin 4.3 (3.5-5.0) g/dL Lipase 96 H (8-78) U/L Discharge Plan Discharge Clinical Impression: Acute proctitis Patient Disposition: Home, Self-Care Instructions: Proctitis (ED) Additional Instructions: Follow-up with your zigzag appliquer son return if worse Prescriptions: New ciprofloxacin HCl [Cipro] 500 mg tablet 500 mg PO BID Qty: 14 0RF metronidazole 500 mg tablet 500 mg PO Q8H 7 Days Qty: 21 0RF No Action metoprolol tartrate 50 mg tablet 50 mg PO BID zolpidem 10 mg tablet 1 tab PO BEDTIME rosuvastatin 40 mg tablet 40 mg PO BEDTIME ferrous gluconate 324 mg (38 mg iron) tablet 1 tab PO DAILY cyanocobalamin (vitamin B-12) 1,000 mcg tablet 1 tab PO DAILY lidocaine 5 % adhesive patch,medicated 1 patch topical DAILY gabapentin 300 mg capsule 300 mg PO TID methadone 10 mg/mL Concentrate 50 mg PO DAILY felodipine 5 mg tablet extended release 24 hr 5 mg PO BEDTIME acetaminophen 650 mg tablet extended release 650 mg PO Q8H PRN (Reason: mild pain) mesalamine 400 mg Capsule (With Del Rel Tablets) 500 mg PO TID Qty: 90 0RF ciprofloxacin HCl [Cipro] 500 mg tablet 500 mg PO BID Qty: 26 0RF metronidazole 500 mg tablet 500 mg PO BID Qty: 26 0RF magnesium oxide 400 mg (241.3 mg magnesium) Tablet 400 mg PO DAILY Qty: 14 0RF pantoprazole 40 mg tablet,delayed release (DR/EC) 40 mg PO DAILY@0630 lisinopril 20 mg tablet 20 mg PO DAILY calcium polycarbophil [Fiber-Lax] 625 mg tablet 625 mg PO DAILY (DME) miscellaneous medical supply Misc See Rx Instructions .Route Qty: 1 0RF Rx Instructions: As directed Referrals: Margot Silva MD [Physician, Gastroenterology] - 10/13/25 Print Language: Syrian
[2025-10-11 08:27] VITALS: BP 174/97
[2025-10-11 08:29] LABS: MANUAL DIFF FLAG NO
--- OUTSIDE RECORDS SUMMARY | 2025-10-11 08:30 | XMS_ITS | Encounter Summary ---
Author Organization [employer] Address [address] [facility] 7t [place] [address] Care Team Providers Care Ham Passer Name Role Phone Dariela Zapata MD Primary Care Provide r Sharon Lyon RN Unavailable [phone] Amelia Houston Unavailable Reason for Visit * Reason Comments Med Refill Encounter Details Date Type Department Care Team (Late st Contact Info) Description 06/16/[address] [facility] [address] [place] [address] Dariela Zapata MD [address] [place], [place] [id number] Cervicalgia Social History Tobacco Use Types Packs/Day [...] with others, in a hotel, in a detention, living outside on the street, on a [...] Description 10/20/2025 9:00 AM EST Office Visit [facility] [address] [place] [address] Dariela Zapata MD [address] [place] [address] 02/25/2026 10:30 AM EDT Office Visit [facility] [address] [place] [address] Dallas, Tonya, OD [address] [place] [address] documented as of this encounter Visit Diagnoses Diagnosis Cervicalgia documented in this encounter Additional Health Concerns Assessment Noted Time PHQ-9 Depression Total Score: 0 03/25/20 24 2:34 PM EDT documented as of this encounter Care Teams Ham Passer Relationship Specialty Start Date End Date Dariela Zapata MD [address] [place] [address] PCP - General Family Medicine 10/14/19 Sharon Lyon RN [address] [place] [address] Registered Nurse Family Medicine 07/31/25 Amelia Houston 07/31/25 documented as of this encounter
--- OUTSIDE RECORDS SUMMARY | 2025-10-11 08:30 | XMS_ITS | Encounter Summary ---
Author Organization [employer] Address [address] [facility] 7t [place] [address] Care Team Providers Care New Car Make Ready Worker Name Role Phone Dariela Zapata MD Primary Care Provide r Sharon Lyon RN Unavailable [phone] Amelia Houston Unavailable Reason for Visit * Reason Onset Date Comments mail appt slip 03/11/2025 Encounter Details Date Type Department Care Team (Late st Contact Info) Description 03/11/2025 Telephone [facility] ADULT DENTAL [address] [place] [address] Leroy Joel DDS [address] [place] [address] mail appt slip Social History Tobacco Use [...] Description 10/20/2025 9:00 AM EST Office Visit [facility] MEDICINE [address] [place] [address] Dariela Zapata MD [address] [place] [address] 02/25/2026 10:30 AM EDT Office Visit [facility] OPTOMETRY [address] [place] [address] Tonya Haynes OD [address] [place] [address] documented as of this encounter Visit Diagnoses Not on filedocumented in this encounter Additional Health Concerns Assessment Noted Time PHQ-9 Depression Total Score: 0 03/25/20 24 2:34 PM EDT documented as of this encounter Care Teams New Car Make Ready Worker Relationship Specialty Start Date End Date Dariela Zapata MD [address] [place] [address] PCP - General Family Medicine 10/14/19 Sharon Lyon RN [address] [place] [address] Registered Nurse Family Medicine 07/31/25 Amelia Houston 07/31/25 documented as of this encounter
--- OUTSIDE RECORDS SUMMARY | 2025-10-11 08:30 | XMS_ITS | Encounter Summary ---
Author Organization [employer] Address [address] [facility] [address] [place] [address] Care Team Providers Care Sleep Lab Technician Name Role Phone Dariela Zapata MD Primary Care Provide r Sharon Lyon RN Unavailable [phone] Amelia Houston Unavailable Encounter Details Date Type Department Care Team ([facility] st Contact Info) Description 09/16/2024 Orders Only [facility] [address] [place] [address] Dariela Zapata MD [address] [place] [address] Social History Tobacco Use Types Packs/Day Years [...] 9:00 AM EST Office Visit [facility] MED[facility] [address] [place] [address] Dariela Zapata MD [address] [place] [address] 02/25/2026 10:30 AM EDT Office Visit [facility] OPTOMETRY [address] [place] [address] Tonya Haynes, OD [address] [place] [address] documented as of this encounter Procedures Procedure [...] AM EST Narrative 09/24/2024 10:47 AM EST [facility] [address] [place] [id number] XRay Report Signed Patient: Jayden Pierce MR#: [id number] : 1965 Acct:[id number] Age/Sex: 59 / M ADM Date: 09/24/24 Loc: HO.ED Attending Dr: Ordering Physician: Generic ED Physician Date of Service: 09/24/24 Procedure(s): XR chest 1V Accession Number(s): [id number] cc: Dariela Zapata MD; Generic ED Physician [...] by: Rojelio Julien MD 09/24/2024 10:44 AM [facility] Workstation: [id number] Dictated By: Rojelio Julien MD Signed By: <Electronically signed by Rojelio Julien MD in OV> 09/24/24 1044 DD/ 1028 TD/TT: 09/24/24 1030 Shot Core Drill Operator Helper: Procedure Note Donotuseinterpreter, Image - 09/24/2024 [facility] [address] [place] [address] XRay Report Signed Patient: Beatriz PierceoMR#: [id number] : 1965Acct:[id number] Age/Sex: 59 / MADM Date: 09/24/24 Loc: HO.ED Attending Dr: Ordering Physician: Generic ED Physician Date of Service: 09/24/24 Procedure(s): XR chest 1V Accession Number(s): [id number] cc: Dariela Zapata MD; Generic ED Physician [...] 09/24/24 1044 DD/ 1028 TD/TT: 09/24/24 1030 Shot Core Drill Operator Helper: [facility] External Provider IMG XR PROCEDURES Final Result * SARS-CoV-2 RNA, Influenza A/B, and RSV RNA, Ql NAAT (09/24/2024 10:25 AM EST) Influenza A PCR NEGATIVE Negative [facility] Influenza B PCR NEGATIVE Negative [facility] Resp Syncy Virus RNA Qual PCR NEGATIVE Negative [facility] SARS COV2 PCR NEGATIVE Negative [facility] Comment:All test results mus t be [...] use by authorized laboratories.Testing performed on the [employer] GeneXpert utilizingreal-time RT-PCR.All SARS CoV2 and positive influenza A/B results arereported to [facility]. 09/24/2024 10:2 5 AM EST 09/24/2024 10:28 AM EST us Generic External Data Provider LAB MICROBIOLOGY - GENERAL ORDERABLES Final Result [facility] [address] [place] [address] [phone] documented in this encounter Visit Diagnoses Not on filedocumented in this encounter Additional Health Concerns Assessment Noted Time PHQ-9 Depression Total Score: 0 03/25/20 24 2:34 PM EDT documented as of this encounter Care Teams Sleep Lab Technician Relationship Specialty Start Date End Date Dariela Zapata MD [address] [place] [address] PCP - General Family Medicine 10/14/19 Sharon Lyon RN [address] [place] [address] Registered Nurse Family Medicine 07/31/25 Amelia Houston 07/31/25 documented as of this encounter
--- OUTSIDE RECORDS SUMMARY | 2025-10-11 08:30 | XMS_ITS | Encounter Summary ---
Author Organization [employer] Address [address] [facility] 7[address] [place] [address] Care Team Providers Care Production Maintenance Technician Name Role Phone Dariela Zapata MD Primary Care Provide r Sharon Lyon RN Unavailable [phone] Amelia Houston Unavailable Encounter Details Date Type Department Care Team (Late st Contact Info) Description 01/14/2025 Orders Only [facility] [address] [place] [address] Dariela Zapata MD [address] [place], [place] [phone] Social History Tobacco Use Types Packs/Day Years [...] Description 10/20/2025 9:00 AM EST Office Visit [facility] [address] [place] [address] Dariela Zapata MD [address] [place] [address] 02/25/2026 10:30 AM EDT Office Visit [facility] OPTOMETRY [address] [place] [address] Dallas, Tonya, OD [address] [place] [address] documented as of this encounter Visit Diagnoses Not on filedocumented in this encounter Additional Health Concerns Assessment Noted Time PHQ-9 Depression Total Score: 0 03/25/20 24 2:34 PM EDT documented as of this encounter Care Teams Production Maintenance Technician Relationship Specialty Start Date End Date Dariela Zapata MD [address] [place] [address] PCP - General Family Medicine 10/14/19 Sharon Lyon RN [address] [place] [address] Registered Nurse Family Medicine 07/31/25 Amelia Houston 07/31/25 documented as of this encounter
--- OUTSIDE RECORDS SUMMARY | 2025-10-11 08:31 | XMS_ITS | Encounter Summary ---
Author Organization [employer] Address [address] [facility] 7[address] [place] [address] Care Team Providers Care Wreath Machine Tender Name Role Phone Dariela Zapata MD Primary Care Provide r Sharon Lyon RN Unavailable [phone] Amelia Houston Unavailable Reason for Visit * Reason Comments Med Refill Encounter Details Date Type Department Care Team (Late st Contact Info) Description 01/11/2024 Refill [facility] [address] [place] [address] Dariela Zapata MD [address] [place], [place] [phone] Insomnia, unspecified type; Pain; Crohn's disease with [...] Description 10/20/2025 9:00 AM EST Office Visit [facility] [address] [place] [address] Dariela Zapata MD [address] [place] [address] 02/25/2026 10:30 AM EDT Office Visit [facility] OPTOMETRY [address] [place] [address] Dallas, Tonya, OD [address] [place] [address] documented as of this encounter Visit Diagnoses Diagnosis Insomnia, unspecified type Pain Generalized pain Crohn's disease with complication, unspecified gastrointestinal tract location (CMS/HCC) (HCC) documented in this encounter Care Teams Wreath Machine Tender Relationship Specialty Start Date End Date Dariela Zapata MD [address] [place] [address] PCP - General Family Medicine 10/14/19 Sharon Lyon, NEGRO [address] [place] [address] Registered Nurse Family Medicine 07/31/25 Amelia Houston 07/31/25 documented as of this encounter
--- OUTSIDE RECORDS SUMMARY | 2025-10-11 08:31 | XMS_ITS | Encounter Summary ---
Author Organization [employer] Address [address] [place] [address] Care Team Providers Care Chemical Production Technician Name Role Phone Dariela Zapata MD Primary Care Provide r Sharon Lyon RN Unavailable [phone] Amelia Houston Unavailable Reason for Visit * Reason Comments Med Refill Encounter Details Date Type Department Care Team (Late st Contact Info) Description 01/05/2024 Refill [facility] [address] [place] [address] Dariela Zapata MD [address] [place], [place] [phone] Low back pain at multiple sites Social History Tobacco Use Types Packs/Day Years Used Date Smoking Tobacco: Never Assessed Housing Stability Answer Date Recorded What is your housing situation today? I do not have housing (Staying with others, in a hotel, in a long term, living outside on the street, on a [...] 9:00 AM EST Office Visit [facility] [address] [place] [address] Dariela Zapata MD [address] [place] [address] 02/25/2026 10:30 AM EDT Office Visit [facility] [address] [place] [address] [place], Tonya, OD [address] [place] [address] documented as of this encounter Visit Diagnoses Diagnosis Low back pain at multiple sites documented in this encounter Care Teams Chemical Production Technician Relationship Specialty Start Date End Date Dariela Zapata MD [address] [place] [address] PCP - General Family Medicine 10/14/19 Sharon Lyon RN [address] [place] [address] Registered Nurse Family Medicine 07/31/25 Amelia Houston 07/31/25 documented as of this encounter
--- OUTSIDE RECORDS SUMMARY | 2025-10-11 08:31 | XMS_ITS | Encounter Summary ---
Author Organization [employer] Address [address] [facility] [address] [place] [address] Care Team Providers Care Marketing Recruiter Name Role Phone Dariela Zapata MD Primary Care Provide r Sharon Lyon RN Unavailable [phone] Amelia Houston Unavailable Reason for Visit * Reason Comments Med Refill Encounter Details Date Type Department Care Team (Late st Contact Info) Description 01/08/2024 Refill [facility] [address] [place] [address] Dariela Zapata MD [address] [place], [place] [phone] Low back pain at multiple sites Social [...] 9:00 AM EST Office Visit [facility] [address] [place] [address] Dariela Zapata MD [address] [place] [address] 02/25/2026 10:30 AM EDT Office Visit [facility] [address] [place] [address] Dallas, Tonya, OD [address] [place] [address] documented as of this encounter Visit Diagnoses Diagnosis Low back pain at multiple sites documented in this encounter Care Teams Marketing Recruiter Relationship Specialty Start Date End Date Dariela Zapata MD [address] [place] [address] PCP - General Family Medicine 10/14/19 Sharon Lyon RN [address] [place] [address] Registered Nurse Family Medicine 07/31/25 Amelia Houston 07/31/25 documented as of this encounter
--- OUTSIDE RECORDS SUMMARY | 2025-10-11 08:31 | XMS_ITS | Encounter Summary ---
Author Organization [employer] Address [address] [facility] [address] [place] [address] Care Team Providers Care Cheese Pancake Roller Name Role Phone Dariela Zapata MD Primary Care Provide r Sharon Lyon RN Unavailable [phone] Amelia Houston Unavailable Reason for Visit * Reason Comments Med Refill Encounter Details Date Type Department Care Team (Late st Contact Info) Description 01/15/2024 Refill [facility] [address] [place], [place] [phone] Dariela Zapata MD [address] [place] [address] Pain; Crohn's disease with complication, unspecified gastrointestinal [...] Description 10/20/2025 9:00 AM EST Office Visit [facility] [address] [place] [address] Dariela Zapata MD [address] [place] [address] 02/25/2026 10:30 AM EDT Office Visit [facility] [address] [place] [address] Dallas, Tonya, OD [address] [place] [address] documented as of this encounter Visit Diagnoses Diagnosis Pain Generalized pain Crohn's disease with complication, unspecified gastrointestinal tract location (CMS/HCC) (HCC) documented in this encounter Care Teams Cheese Pancake Roller Relationship Specialty Start Date End Date Dariela Zapata MD [address] [place] [address] PCP - General Family Medicine 10/14/19 Sharon Lyon RN [address] [place] [address] Registered Nurse Family Medicine 07/31/25 Amelia Houston 07/31/25 documented as of this encounter
--- OUTSIDE RECORDS SUMMARY | 2025-10-11 08:31 | XMS_ITS ---
Author Organization [employer] Address [address] [facility] [address] [place] [address] Care Team Providers Care Hairspring Setter Name Role Phone Dariela Zapata MD Primary Care Provide r Sharon Lyon RN Unavailable [phone] Amelia Houston Unavailable CM Complex Status:Outreach In Progress (Enrolling) Start date:07/31/2025 Enrollment reason:ADT Feed Overview ED- Pt went to [facility] on 07/30/25. Case Team Name Relationship Phone Sharon Lyon RN(Responsible Staff) Registered Nurse [phone] Continued Care and Services Coordination
--- OUTSIDE RECORDS SUMMARY | 2025-10-11 08:31 | XMS_ITS | Clinical Summary ---
Author Organization [employer] [facility] Address [address] [place] [address] Care Team Providers Care Coal Trammer Name Role Phone Unavailable Primary Care Provider [...] Depression Screening 11/13/2024 COVID-19 Vaccine (1 - 2024-2 6 season) 2025 Influenza Vaccine (#1) 2025 RSV [...]
--- OUTSIDE RECORDS SUMMARY | 2025-10-11 08:31 | XMS_ITS | Encounter Summary ---
Author Organization [employer] Address [address] [place] [address] Care Team Providers Care Staffing Account Manager Name Role Phone Dariela Zapata MD Primary Care Provide r Sharon Lyon RN Unavailable [phone] Amelia Houston Unavailable Reason for Visit * Reason Onset Date Comments Durable Medical Equipment 07/04/2025 Encounter Details Date Type Department Care Team (Late st Contact Info) Description 07/04/2025 Telephone [facility] [address] [place] [address] Dariela Zapata MD [address] [place], [place] [phone] Durable Medical Equipment Social History Tobacco Use [...] when hehas to go Contact pt at [phone] ([facility]) documented in this encounter Plan of Treatment Upcoming Encounters Date Type Department Care Team (Late st Contact Info) Description 10/20/2025 9:00 AM EST Office Visit [facility] [address] [place] [address] Dariela Zapata MD [address] [place] [address] 02/25/2026 10:30 AM EDT Office Visit [facility] [address] [place] [address] Tonya Haynes, OD [address] [place] [address] documented as of this encounter Visit Diagnoses Not on filedocumented in this encounter Additional Health Concerns Assessment Noted Time PHQ-9 Depression Total Score: 0 03/25/20 24 2:34 PM EDT documented as of this encounter Care Teams Staffing Account Manager Relationship Specialty Start Date End Date Dariela Zapata MD [address] [place] [address] PCP - General Family Medicine 10/14/19 Sharon Lyon, NEGRO [address] [place] [address] Registered Nurse Family Medicine 07/31/25 Amelia Houston 07/31/25 documented as of this encounter
--- OUTSIDE RECORDS SUMMARY | 2025-10-11 08:31 | XMS_ITS | Clinical Summary ---
Author Organization [employer] Address [address] [facility] [address] [place] [address] Care Team Providers Care Hypnotherapist Name Role Phone Dariela Zapata MD Primary Care Provide r Sharon Lyon RN Unavailable [phone] Amelia Houston Unavailable Allergies Active Allergy [...] TABLET BY MOUTH EVERY MORNING 90 tablet 025 Active felodipine ER (Plendil) 5 MG 24 hr tabletIndications:H ypertension, unspecified type TAKE 1 TABLET BY MOUTH EVERY EVENING 90 tablet 025 Active rosuvastatin (Crestor) 40 MG tabletIndications:H ypertension, unspecified type TAKE 1 TABLET BY MOUTH EVERY EVENING 90 tablet 025 Active metoprolol tartrate (Lopressor) 50 MG tabletIndications:H ypertension, unspecified type TAKE 1 TABLET BY MOUTH TWICE DAILY IN THE MORNING AND IN THE EVENING 180 tablet 025 Active Zinc Oxide 10 % ointmentIndications [...] or split. 90 tablet 1 025 Active zolpidem (Ambien) 10 MG tabletIndications:I nsomnia, unspecified type TAKE 1 TABLET BY MOUTH AT BEDTIME 30 tablet 1 025 Active lidocaine (Lidoderm) 5 % patchIndications:Lo w back pain at multiple sites APPLY 1 PATCH TOPICALLY TO SKIN, LEAVE ON FOR 12 HOURS AND OFF FOR 12 HOURS DIRECTED 30 patch 2 Active gabapentin (Neurontin) 300 MG capsuleIndications: Pain TAKE 1 CAPSULE BY MOUTH TWICE DAILY 60 capsule 2 Active lisinopril 20 MG tabletIndications:E ssential hypertension TAKE 1 TABLET BY MOUTH EVERY MORNING 90 tablet 1 025 2024 Discontinued(R eorder (will not trigger notification to Pharmacy)) pantoprazole (ProtoNix) 40 MG EC tablet TAKE 1 TABLET BY MOUTH EVERY MORNING 90 tablet 1 025 2024 Discontinued(R eorder (will not trigger notification to Pharmacy)) zolpidem (Ambien) 10 MG tabletIndications:I nsomnia, unspecified type Take 1 tablet (10 mg) by mouth at bedtime. 30 tablet 1 2024 Discontinued gabapentin (Neurontin) 300 MG capsuleIndications: Pain Take 1 capsule (300 mg) by mouth 2 times daily. 60 capsule 2 2024 Discontinued lidocaine (Lidoderm) 5 % patchIndications:Lo w back pain at multiple sites APPLY 1 PATCH TOPICALLY TO SKIN, LEAVE ON FOR 12 HOURS AND OFF FOR 12 HOURS DIRECTED 30 patch 2 025 2024 Discontinued Active Problems Problem Noted Date Diagnosed Date Perianal fistula due to Crohn's disease ([facility] ) 07/15/2025 Assessment & Plan (07/15/2025 10:02 [...] lidocaine patches Stage 3b chronic kidney disease ([facility]) 2024 Assessment & Plan (07/15/2025 10:06 AM [...] pulp 02/19/2025 Small bowel obstruction 10/16/2024 Pouchitis ([facility]) 10/16/2024 Crohn's disease of both small and large intestin e 10/16/2024 Inflammation of ileoanal pouch ([facility]) 024 Opioid use disorder 10/16/2024 Clostridium difficile [...] nephrology Hypertensive renal disease 03/19/2021 Crohn's disease ([facility]) 06/23/2017 Assessment & Plan (07/15/2025 10:01 [...] organization. Date Type Department Care Team Description 10/07/2025 Patient Outreach [address] [address] Leroy Guerra Recovery Supports 10/06/2025 Travel 10/06/2025 Patient Outreach [address] [address] Dariela Zapata MD Pre-visit Planning (SDOH screening completed on 07/07/2025) 10/05/[address] [address] Dariela Zapata MD Low back pain at multiple sites; Pain 09/18/2025 Patient Outreach [facility] [place] [address] Dariela Zapata MD 09/17/2025 9:00 AM EST Office Visit [facility] [place] [address] Da Davis MD Uncomplicated opioid dependence (CMS/HCC) (HCC) (Primary Dx) 09/15/2025 Patient Outreach [address] [address] Dariela Zapata MD 09/13/2025 Orders Only [facility] External Provider, [facility] 09/13/2025 Refill [facility] [address] [place] [phone] Dariela Zapata MD Insomnia, unspecified type 09/12/[address] [address] Dariela Zapata MD Essential hypertension 09/10/2025 Patient Outreach [address] [address] Dariela Zapata MD 08/13/2025 9:00 AM EDT Office Visit [address] [address] Da Davis MD Uncomplicated opioid dependence (CMS/HCC) (HCC) (Primary Dx) 08/13/2025 Patient Outreach [address] [address] Dariela Zapata MD Care Management (C3CM- initial assessment/ enrollment) 08/13/2025 Travel 08/12/2025 Patient Outreach [address] [address] Leroy Guerra Recovery Supports 08/07/[address] [address] Dariela Zapata MD Dec recall 08/04/2025 Orders Only GENERIC EXTERNAL DATA DEPARTMENT Provider, Generic External Data 07/31/2025 Patient Outreach [address] [address] Dariela Zapata MD Care Coordination (CM/CHW outreach) 07/31/2025 Patient Outreach [address] [address] Dariela Zapata MD Care Coordination (CHW chart review) 07/31/2025 Patient Outreach [address] [address] Dariela Zapata MD Care Management (C3CM- chart review) 07/31/2025 Patient Outreach [facility] [address] [place] [address] Dariela Zapata MD 07/30/2025 Orders Only GENERIC EXTERNAL DATA DEPARTMENT Provider, Generic External Data 07/15/2025 9:30 AM EDT Office Visit [facility] [address] [place] [address] Dariela Zapata MD Essential hypertension (Primary Dx); Crohn's disease of both small and large intestine with fistula (CMS/HCC); Perianal fistula due to Crohn's disease (CMS/HCC); Incontinence of feces, unspecified fecal incontinence type; Insomnia, unspecified type; Pain; Low back pain at multiple sites; Encounter for immunization; Stage 3b chronic kidney disease (CMS/HCC) 07/15/2025 Telephone [facility] [address] [place] [phone] Dariela Zapata MD Durable Medical Equipment (DME Order: [employer]) 07/15/2025 Travel 07/11/2025 Telephone [facility] CHC MED & PEDS [address] [place] [address] Dariela Zapata MD Chart Prep from Last 3 Months Immunizations Immunization Administration [...] Answer Date Recorded Internet Access Q1 Yes 09/23/2025 Internet Access Q2 Not on file 09/23/2025 Sex and Gender Information Value Date Recorded [...] Description 10/20/2025 9:00 AM EST Office Visit [facility] [address] [place] [address] Dariela Zapata MD [address] [place] [address] 02/25/2026 10:30 AM EDT Office Visit [facility] OPTOMETRY [address] [place] [address] Tonya Haynes, OD [address] [place] [address] Health Maintenance Due Date Last Done Comments [...] 07/15/2026 07/15/2025 Depression Screening 07/15/2026 07/15/2025, 07/15/20 25 Disability Screening 07/15/2026 07/15/2025 Tobacco Screening 07/15/2026 [...] Procedure Name Priority Date/Time Associated Diagnosis Comments MR PELVIS WO CONTRAST Routine 09/19/2025 12:[address] ABDOMEN PELVIS WO CONTRAST Routine 09/13/2025 6:34 PM EDT XR CHEST 2 VIEWS Routine 09/13/2025 4:21 PM EDT URINALYSIS, COMPLETE, WITH REFLEX TO CULTURE Routine 09/13/2025 4:10 PM EDT LACTIC ACID Routine 09/13/2025 4:05 PM EDT C-REACTIVE PROTEIN Routine 08/04/2025 3: 50 PM EDT COMPREHENSIVE METABOLIC PANEL Routine 08/04/2025 3:50 PM EDT CBC WITH AUTO DIFFERENTIAL Routine 08/04/2025 3:50 PM EDT SED RATE BY MODIFIED WESTERGREN Routine 07/30/2025 12:32 PM EDT C-REACTIVE PROTEIN Routine 07/30/2025 12 :32 PM EDT COMPREHENSIVE METABOLIC PANEL Routine 07/30/2025 12:32 PM EDT CBC WITH AUTO DIFFERENTIAL Routine 07/30/2025 12:32 PM EDT BITEWING - SINGLE RADIOGRAPHIC IMAGE Routine [...] Recently Relevant to Health Maintenance Results * MR Pelvis w/o Contrast (09/19/2025 12:53 PM EST) Anatomical Region Laterality Modality Body, Pelvis Magnetic Resonan ce 09/19/2025 12:5 3 PM EST Narrative 09/19/2025 1:53 PM EST [address] [address] Magnetic Resonance Report Signed Patient: Jayden Pierce MR#: [id number] : 1965 Acct:[id number] Age/Sex: 60 / M ADM Date: 09/19/25 Loc: HO.MRI Attending Dr: Taryn Lazcano MD Ordering Physician: Taryn Lazcano MD Date of Service: 09/19/25 Procedure(s): MR pelvis wo con Accession Number(s): [id number] cc: Dariela Zapata MD; Taryn Lazcano MD Reason for Exam: K61.1 - Rectal abscess EXAMINATION: MR PELVIS WITHOUT IV CONTRAST HISTORY: K61.1 - Rectal abscess. TECHNIQUE: Axial T1, axial fat-suppressed T2, and sagittal and coronal T2-weighted MR images of the pelvis were obtained. The patient became contrast or pelvic necessitating termination of the examination. IV contrast was not administered. COMPARISON: Correlation is made with an unenhanced CT of the pelvis dated 09/13/2025. FINDINGS: The examination is degraded by patient motion. There is ill-defined markedly hypoechoic tissue posterior to the rectum and anterior to the sacrum. A small amount of fluid is likely present. Evaluation is extremely limited by patient motion and lack of intravenous contrast material. There is a large amount of stool in the rectum. The prostate is normal in size. The urinary bladder is collapsed. MR/MR pelvis wo con IMPRESSION: Nondiagnostic examination due to patient claustrophobia. Ill-defined hypoechoic tissue in the presacral space. Electronically signed by: J Luis Hugo MD 09/19/2025 01:50 PM EST Dictated By: J Luis Hugo MD Signed By: <Electronically signed by J Luis Hugo MD in OV> 09/19/25 1350 DD/ 1253 TD/TT: 09/19/25 1306 Stunt Person: Procedure Note Donotuseinterpreter, Image - 09/19/[address] [address] Magnetic Resonance Report Signed Patient: Luisa Pierce#: [id number] : 1965Acct:[id number] Age/Sex: 60 / MADM Date: 09/19/25 Loc: HO.MRI Attending Dr: Taryn Lazcano MD Ordering Physician: Taryn Lazcano MD Date of Service: 09/19/25 Procedure(s): MR pelvis wo con Accession Number(s): [id number] cc: Dariela Zapata MD; Taryn Lazcano MD Reason for Exam: K61.1 - Rectal abscess EXAMINATION: MR PELVIS WITHOUT IV CONTRAST HISTORY: K61.1 - Rectal abscess. TECHNIQUE: Axial T1, axial fat-suppressed T2, and sagittal and coronal T2-weighted MR images of the pelvis were obtained. The patient became contrast or pelvic necessitating termination of the examination. IV contrast was not administered. COMPARISON: Correlation is made with an unenhanced CT of the pelvis dated 09/13/2025. FINDINGS: The examination is degraded by patient motion. There is ill-defined markedly hypoechoic tissue posterior to the rectum and anterior to the sacrum. A small amount of fluid is likely present. Evaluation is extremely limited by patient motion and lack of intravenous contrast material. There is a large amount of stool in the rectum. The prostate is normal in size. The urinary bladder is collapsed. MR/MR pelvis wo con IMPRESSION: Nondiagnostic examination due to patient claustrophobia. Ill-defined hypoechoic tissue in the presacral space. Electronically signed by: J Luis Hugo MD 09/19/2025 01:[address] [facility] Dictated By: J Luis Hugo MD Signed By: <Electronically signed by J Luis Hugo MD in OV> 09/19/25 1350 DD/ 1253 TD/TT: 09/19/25 1306 Stunt Person: [facility] External Provider IMG MRI PROCEDURES Final Result * CT Abdomen Pelvis w/o Contrast (09/13/2025 6:34 PM EDT) Anatomical Region Laterality Modality Body, Pelvis, Abdomen Computed T omography 09/13/2025 6:34 PM EDT Narrative 09/13/2025 6:36 PM EDT [place] [address] CT Scan Report Signed Patient: Jayden Pierce MR#: [id number] : 1965 Acct:[id number] Age/Sex: 60 / M ADM Date: 09/13/25 Loc: HO.ED Attending Dr: Ordering Physician: Trudy Guardado DO Date of Service: 09/13/25 Procedure(s): CT abdomen pelvis wo IV con Accession Number(s): [id number] cc: Dariela Zapata MD; Trudy Guardado DO Report Number: [id number]: Total DLP = 0.00 mGy-cm Reason for Exam: diarrhea, rectal pain, abdominal pain hx of Crohns CLINICAL HISTORY: diarrhea, rectal pain, abdominal pain hx of Crohns CT abdomen and pelvis without contrast Comparison: CT/REG/AZ/SR - CT ABDOMEN PELVIS WITHOUT IV CONTRAST - 05/02/23 11:[address]/REG/SR - CT ABDOMEN PELVIS WITHOUT IV CONTRAST - 02/17/23 12:45 EDT Findings: No consolidation at the lung bases. Underdistended gallbladder. Unremarkable bladder. Hepatic steatosis. Splenic granulomatosis. The other solid organs are unremarkable. Status post colectomy. There are dilated loops of small bowel which measure up to 3.7 cm. There is fecalization indicating delayed transit. Right lower quadrant small bowel anastomotic sutures. Mild amount of fat stranding and small lymph nodes measuring up to 0.6 cm to the right of the anastomosis of the small bowel with the rectum, similar to the prior study. No fluid collection or free air. There is soft tissue attenuation in the mesorectal fat presacral region, also present on the prior study. There is new fluid attenuation with foci of air seen in the region posterior to the rectum (series 2 image 74) this reaches measures 1.4 x 1.7 x 2.1 cm (series 2, image 74 and series 7, image 79). No aneurysm. Moderate to severe calcified atherosclerotic disease. No lymphadenopathy. No ascites. Status post ventral hernia repair. No acute osseous abnormality. Impression: New 1.7 cm perirectal abscess. This document has been electronically signed by: Estela Wilks MD on 09/13/2025 18:34:41 Dictated By: Estela Oliveros MD Signed By: <Electronically signed by Estela Oliveros MD in OV> 09/13/251835 DD/ 33 TD/TT: 09/13/251833 Stunt Person: Procedure Note Donotuseinterpreter, Image - 09/13/[address] [address] [address] Scan Report Signed Patient: Luisa Pierce#: [id number] : 1965Acct:[id number] Age/Sex: 60 / MADM Date: 09/13/25 Loc: HO.ED Attending Dr: Ordering Physician: Trudy Guardado DO Date of Service: 09/13/25 Procedure(s): CT abdomen pelvis wo IV con Accession Number(s): [id number] cc: Dariela Zapata MD; Trudy Guardado DO Report Number: [id number]: Total DLP = 0.00 mGy-cm Reason for Exam: diarrhea, rectal pain, abdominal pain hx of Crohns CLINICAL HISTORY: diarrhea, rectal pain, abdominal pain hx of Crohns CT abdomen and pelvis without contrast Comparison: CT/REG/AZ/SR - CT ABDOMEN PELVIS WITHOUT IV CONTRAST - 05/02/23 11:[address]/REG/SR - CT ABDOMEN PELVIS WITHOUT IV CONTRAST - 02/17/23 12:45 EDT Findings: No consolidation at the lung bases. Underdistended gallbladder. Unremarkable bladder. Hepatic steatosis. Splenic granulomatosis. The other solid organs are unremarkable. Status post colectomy. There are dilated loops of small bowel which measure up to 3.7 cm. There is fecalization indicating delayed transit. Right lower quadrant small bowel anastomotic sutures. Mild amount of fat stranding and small lymph nodes measuring up to 0.6 cm to the right of the anastomosis of the small bowel with the rectum, similar to the prior study. No fluid collection or free air. There is soft tissue attenuation in the mesorectal fat presacral region, also present on the prior study. There is new fluid attenuation with foci of air seen in the region posterior to the rectum (series 2 image 74) this reaches measures 1.4 x 1.7 x 2.1 cm (series 2, image 74 and series 7, image 79). No aneurysm. Moderate to severe calcified atherosclerotic disease. No lymphadenopathy. No ascites. Status post ventral hernia repair. No acute osseous abnormality. Impression: New 1.7 cm perirectal abscess. This document has been electronically signed by: Estela Wilks MD on 09/13/2025 18:34:41 Dictated By: Estela Oliveros MD Signed By: <Electronically signed by Estela Oliveros MD in OV> 09/13/251835 DD/ 33 TD/TT: 09/13/251833 Stunt Person: [facility] External Provider IMG CT PROCEDURES Edited Result - Final * XR Chest 2 Views (09/13/2025 4:21 PM EDT) Anatomical Region Laterality Modality Chest Radiographic Kendra ging 09/13/2025 4:21 PM EDT Narrative 09/13/2025 4:23 PM EDT [place] [address] XRay Report Signed Patient: Jayden Pierce MR#: [id number] : 1965 Acct:[id number] Age/Sex: 60 / M ADM Date: 09/13/25 Loc: HO.ED Attending Dr: Ordering Physician: Trudy Guradado DO Date of Service: 09/13/25 Procedure(s): XR chest 2V Accession Number(s): [id number] cc: Dariela Zapata MD; Trudy Guardado DO Reason for Exam: chest pain CLINICAL HISTORY: chest pain 2 view chest x-ray Comparison: CR/SR - XR CHEST 1 VIEW - 05/07/25 12:04 EDT Findings: The lungs are clear. Heart size is normal. No acute fracture. IMPRESSION: 1. No acute findings. This document has been electronically signed by: Kev Oh MD on 09/13/2025 16:21:57 Dictated By: Kev Oh MD Signed By: <Electronically signed by Kev Oh MD in OV> 09/13/25 1623 DD/ 162 TD/TT: 09/13/251620 Stunt Person: Procedure Note Donotuseinterpreter, Image - 09/13/2025 [place] [address] XRay Report Signed Patient: Luisa Pierce#: [id number] : 1965Acct:[id number] Age/Sex: 60 / MADM Date: 09/13/25 Loc: .ED Attending Dr: Ordering Physician: Trudy Guardado DO Date of Service: 09/13/25 Procedure(s): XR chest 2V Accession Number(s): [id number] cc: Dariela Zapata MD; Trudy Guardado DO Reason for Exam: chest pain CLINICAL HISTORY: chest pain 2 view chest x-ray Comparison: CR/SR - XR CHEST 1 VIEW - 05/07/25 12:04 EDT Findings: The lungs are clear. Heart size is normal. No acute fracture. IMPRESSION: 1. No acute findings. This document has been electronically signed by: Kev Oh MD on 09/13/2025 16:21:57 Dictated By: Kev Oh MD Signed By: <Electronically signed by Kev Oh MD in OV> 09/13/25 162 DD/ 162 TD/TT: 09/13/251620 Stunt Person: [facility] External Provider IMG XR PROCEDURES Edited Result - Final * (ABNORMAL) Urinalysis, Complete, with Reflex to Culture (09/13/2025 4:10 PM EDT) Color Urine Yellow [facility] Appearance Urine Clear [facility] PH 5.0 5.0 - 9.0 [facility] Glucose Urine UA Negative Negative mg/dL [facility] Urine Blood Negative Negative [facility] Specific [place] - Urine 1.015 1.005 - 1.025 [facility] Urine Protein 30 (1+)(A) Neg-Trace mg/dL [facility] Urine Ketones Negative Negative mg/dL [facility] Nitrite Urine Negative Negative [facility] Leukocyte Esterase Urine Negative Negative [facility] RBC Urine 0-2 0 - 2 /HPF [facility] Urine WBC 0-5 0 - 5 /HPF [facility] Urine Squamous Epithelial Cell 0-2 0 - 2 /HPF [facility] Urine Bacteria None Seen None Seen [facility] Hyaline Casts, Urine 0-2 0 - 2 /LPF [facility] 09/13/2025 4:10 PM EDT 09/13/2025 4:19 PM EDT Narrative [facility] - 09/13/2025 4:32 PM EDT [id number], Clean Catch us Generic External Data Provider LAB URINE ORDERAB LES Final Result Performing Organization Address [facility] Co de Phone Number [facility] [address] [place] [phone] * Lactic Acid (09/13/2025 4:05 PM EDT) Lactic Acid 0.9 0.5 - 2.0 mmol/L [facility] 09/13/2025 4:05 PM EDT 09/13/2025 5:18 PM EDT us Generic External Data Provider LAB BLOOD ORDERAB LES Final Result Performing Organization Address [facility] Co de Phone Number [facility] [address] [place] [address] [phone] * (ABNORMAL) CBC auto differential (08/04/2025 3:50 PM EDT) Only the most recent of2 resultswithin the time period is included. White Blood Count 8.4 4.8 - 10.8 X10*3/uL [facility] Red Blood Count 3.67(L) 4.60 - 5.80 X10*6/uL [facility] Hemoglobin 10.8(L) 14.0 - 18.0 g/dl [facility] Hematocrit 34.2(L) 42.0 - 52.0 % [facility] Mean Corpuscular Volume 93.2 80.0 - 98.0 fL [facility] Mean Corpuscular Hemoglobin 29.4 27.0 - 33.0 pg [facility] Mean Corpuscular HGB Conc 31.6 31.0 - 36.0 g/dl [facility] Red Cell Distribution Width 14.2 11.0 - 16.0 % [facility] Platelet Count 278 160 - 400 X10*3/uL [facility] Mean Platelet Volume 9.8 9.4 - 12.4 fL [facility] Neutrophils Percent Auto 72.6 45 - 73 % [facility] Imm Gran Pct Auto 0.4 0.0 - 0.4 % [facility] Lymphocytes Percent Auto 17.6(L) 20 - 40 % [facility] Monocytes Percent Auto 7.3 2 - 11 % [facility] Eosinophils Percent Auto 1.7 0 - 4 % [facility] Basophils Percent Auto 0.4 0 - 2 % [facility] NRBC Pct Auto 0.0 0.0 - 0.2 /100WBC [facility] Neutrophils Absolute Auto 6.1 2.0 - 8.3 x10*3/uL [facility] Imm Gran Abs Auto 0.03 0.00 - 0.03 X10*3/uL [facility] Lymphocytes Absolute Auto 1.5 1.2 - 4.9 X10*3/uL [facility] Monocytes Absolute Auto 0.6 0.1 - 1.2 X10*3/uL [facility] Eosinophils Absolute Auto 0.1 0.0 - 0.4 X10*3/uL [facility] Basophils Absolute Auto 0.0 0.0 - 0.2 X10*3/uL [facility] NRBC Abs Auto 0.000 0.0 - 0.012 X10*3/uL [facility] 08/04/2025 3:50 PM EDT 08/04/2025 3:50 PM EDT Generic External Data Provider LAB BLOOD ORDERAB LES Final Result Performing Organization Address [facility] de Phone Number [facility] [address] [place] [phone] * (ABNORMAL) C-reactive Protein (08/04/2025 3:50 PM EDT) Only the most recent of2 resultswithin the time period is included. C Reactive Protein 2.82(H) < or = 0.50 mg/dL [facility] 08/04/2025 3:50 PM EDT 08/04/2025 3:50 PM EDT [employer] External Data Provider LAB BLOOD ORDERAB LES Final Result Performing Organization Address [facility] de Phone Number [facility] [address] [place] [phone] * (ABNORMAL) Comprehensive Metabolic Panel (08/04/2025 3:50 PM EDT) Only the most recent of2 resultswithin the time period is included. Sodium 139 135 - 145 mmol/L [facility] Potassium 4.8 3.3 - 5.1 mmol/L [facility] Comment:Slight Hemolysis.Int erpret result with caution. Chloride 102 96 - 108 mmol/L [facility] Carbon Dioxide 28 22 - 29 mmol/L [facility] Anion Gap 14 12 - 20 [facility] Urea Nitrogen (BUN) 16 9 - 16 mg/dL [facility] Creatinine, Serum 1.76(H) 0.5 - 1.4 mg/dL [facility] Estimated Glomerular Filt Rate 40 [facility] Comment:Chronic Kidney Disea se: Estimated GFR < 60 mL/min/1.86m7Tzqutx Kidney Disease: Estimated GFR < 15 mL/min/1.73m2 Glucose 79 60 - 115 mg/dL [facility] Calcium 9.4 8.4 - 10.2 mg/dL [facility] Bilirubin, Total 0.4 0.0 - 1.0 mg/dL [facility] Aspartate Amino Transferase 32 5 - 37 U/L [facility] Comment:Slight Hemolysis.Int erpret result with caution. Alanine Aminotransferase 15 0 - 40 U/L [facility] Total Protein 8.7(H) 6.5 - 8.0 g/dL [facility] Albumin Level 4.1 3.5 - 5.0 g/dL [facility] Alkaline Phosphatase 67 39 - 117 U/L [facility] 08/04/2025 3:50 PM EDT 08/04/2025 3:50 PM EDT us Generic External Data Provider LAB BLOOD ORDERAB LES Final Result Performing Organization Address [facility] Co de Phone Number [facility] [address] [place] [phone] * (ABNORMAL) Sed Rate by Modified Falguniren (07/30/2025 12:32 PM EDT) Erythrocyte Sedimentation Rate 64(H) 0 - 15 MM/HR [facility] Comment:Patients with polycy themia and many hemoglobin abnormalitiesmay have depressed sed rates whereas patients with anemiamay have elevated sed rates. 07/30/2025 12:3 2 PM EDT 07/30/2025 12:40 PM EDT us Generic External Data Provider LAB BLOOD ORDERAB LES Final Result Performing Organization Address [facility]/ZIP Co de Phone Number [facility] [address] [place] [phone] * Hepatitis C Antibody with Reflex to HCV, RNA, Quantitative, Real-Time PCR (05/13/2024 9:05 AM EDT) Hepatitis C Antibody Nonreactive Nonreactive [facility] Comment:Antibodies to HCV no t detected; does not exclude early acuteHCV infection. Blood Venous blood specimen / Unknown 05/13/2024 9:05 AM EDT 05/13/2024 11:43 AM EDT us Dariela Scott MD LAB BLOOD ORDERABLES Final Result [facility] [address] [place] [address] [phone] * (ABNORMAL) Lipid Panel, Standard (05/13/2024 9:05 AM EDT) Triglycerides 310(H) <150 mg/dL [facility] Comment:Desirable Triglyceri de: less than 150 mg/dLBorderline High Triglyceride 150-199 mg/dLHigh Triglyceride: 200-499 mg/dLVery High Triglyceride: greater than or equal to 5OO mg/dL Cholesterol 320(H) <200 mg/dL [facility] Comment:Desirable Cholestero l: less than 200 mg/dLBorderline High Cholesterol: 200-239 mg/dLHigh Cholesterol: greater than 239 mg/dL LDL Cholesterol Calculated 223(H) <100 mg/dL [facility] Comment:Desirable LDL: less than 100 mg/dLNear Optimal/Above Optimal LDL: 110- 129 mg/dLBorderline High LDL: 130-159 mg/dLHigh LDL: 160-189 mg/dLVery High LDL: greater than or equal to 190 mg/dL HDL Cholesterol 35(L) >40 mg/dL [facility] Comment:Desirable HDL: great er than 40 mg/dL Note: This HDL assay may give artificially low results in patients with liver disease. Blood Venous blood specimen / Unknown 05/13/2024 9:05 AM EDT 05/13/2024 11:39 AM EDT us Dariela Scott MD LAB BLOOD ORDERABLES Final Result [facility] [address] [place] [address] [phone] * Hm Colonoscopy (10/26/2016) us Historical Provider HEALTH MAINTENANCE Final Result from Last 3 Months or Most Recently Relevant to Health Maintenance Insurance [facility] C3 DENTAL-[facility] MEDICAID STAND ADULT Care Teams Hypnotherapist Relationship Specialty Start Date End Date Dariela Zapata MD [address] [place], [place] PCP - General Family Medicine 10/14/19 Sharon Lyon RN [address] [place] [address] Registered Nurse Family Medicine 07/31/25 Amelia Houston 07/31/25
--- OUTSIDE RECORDS SUMMARY | 2025-10-11 08:31 | XMS_ITS | Encounter Summary ---
Author Organization [employer] Address 75 [facility] 7t [place] [address] Care Team Providers Care Tube Splicer Name Role Phone Dariela Zapata MD Primary Care Provide r Sharon Lyon RN Unavailable [phone] Amelia Houston Unavailable Encounter Details Date Type Department Care Team (Late st Contact Info) Description 01/16/[address] [facility] MEDICINE [address] [place] [address] Rayne Fierro MD [address] [place] [address] Low back pain at multiple sites (Primary [...] Description 10/20/2025 9:00 AM EST Office Visit [facility] MEDICINE [address] [place] [address] Dariela Zapata MD [address] [place] [address] 02/25/2026 10:30 AM EDT Office Visit [facility] OPTOMETRY [address] [place] [address] Tonya Haynes, OD [address] [place] [address] documented as of this encounter Procedures Procedure [...] (BETANCOURT) (02/17/2023 1:07 PM EDT) IDNOW SERIAL# [id number] [facility] COVID-19 TEST Negative Negative [facility] COVID-19 NOTE See Note [facility] Comment: Results are for the identification of SARS-CoV2 RNA. TheSARS-CoV2 RNA is generally detectable in respiratory samplesduring the acute phase of infection. Positive results areindicative of the presence of SARS-CoV-2 RNA; clinicalcorrelation with patient history and other diagnosticinformation is necessary to determine patient infectionstatus. Positive results do not rule out bacterial infectionor co- infection with other viruses.Testing facilities within the [facility] and [facility] are required to report all positive [...] use by authorized laboratories.Testing performed on the [employer] utilizing NAAT. 02/17/2023 1:07 PM EDT 02/17/2023 1:09 PM EDT [facility] Exter nal Provider LAB MOLECULAR DIAGNOSTICS ORDERABLES Final Result Performing Organization Address City/[facility]/ZIP Co de Phone Number [facility] [address] [place] [phone] * Sodium Without creatinine, Random Urine (02/17/2023 12:33 PM EDT) Sodium Urine Random <20.0 mmol/L [facility] 02/17/2023 12:3 3 PM EDT 02/17/2023 2:21 PM EDT [facility] External Provider LAB BLO OD ORDERABLES Final Result Performing Organization Address City/[facility]/ZIP Co de Phone Number [facility] [address] [place] [address] [phone] * Creatinine, Random Urine (02/17/2023 12:33 PM EDT) Creatinine, Urine 379.60 mg/dL [facility] 02/17/2023 12:3 3 PM EDT 02/17/2023 2:21 PM EDT [facility] External Provider LAB URI NE ORDERABLES Final Result Performing Organization Address City/[facility]/ZIP Co de Phone Number [facility] [address] [place] [phone] [phone] * (ABNORMAL) Urinalysis, Complete, with Reflex to Culture (02/17/2023 12:33 PM EDT) Color Urine Dark Yellow [facility] Appearance Urine Cloudy [facility] PH 5.0 5.0 - 9.0 [facility] Glucose Urine UA Negative Negative mg/dL [facility] Urine Blood Small (1+)(A) Negative [facility] Specific [place] - Urine 1.020 1.005 - 1.025 [facility] Urine Protein 100 (2+)(A) Neg-Trace mg/dL [facility] Urine Ketones Trace Negative mg/dL [facility] Nitrite Urine Negative Negative [facility] Leukocyte Esterase Urine Negative Negative [facility] RBC Urine 0-2 0 - 2 /HPF [facility] Urine WBC 0-5 0 - 5 /HPF [facility] Urine Squamous Epithelial Cell 6-10 0 - 2 /HPF [facility] Other Crystals Urine Present [facility] Urine Bacteria None Seen None Seen [facility] Hyaline Casts, Urine 11-20 0 - 2 /LPF [facility] 02/17/2023 12:3 3 PM EDT 02/17/2023 12:42 PM EDT Narrative [facility] - 02/17/2023 12:54 PM EDT [id number], Clean Catch [facility] External Provider LAB URI NE ORDERABLES Final Result Performing Organization Address [facility]/ZIP Co de Phone Number [facility] [address] [place] [address] [phone] * (ABNORMAL) Phosphate (As Phosphorus) (02/17/2023 12:20 PM EDT) Phosphorus 5.9(H) 2.7 - 4.5 mg/dL [facility] 02/17/2023 12:2 0 PM EDT 02/17/2023 12:24 PM EDT [facility] External Provider LAB BLO OD ORDERABLES Final Result Performing Organization Address [facility] Co de Phone Number [facility] [address] [place] [phone] * (ABNORMAL) Lipase (02/17/2023 12:20 PM EDT) Lipase 286(H) 8 - 78 U/L [facility] 02/17/2023 12:2 0 PM EDT 02/17/2023 12:24 PM EDT [facility] External Provider LAB BLO OD ORDERABLES Final Result Performing Organization Address [facility] de Phone Number [facility] [address] [place] [phone] * Hepatic Function Panel (02/17/2023 12:20 PM EDT) Bilirubin, Direct 0.3 0.0 - 0.5 mg/dL [facility] 02/17/2023 12:2 0 PM EDT 02/17/2023 12:24 PM EDT [facility] External Provider LAB BLO OD ORDERABLES Final Result Performing Organization Address [facility] de Phone Number [facility] [address] [place] [phone] * (ABNORMAL) Comprehensive Metabolic Panel (02/17/2023 12:20 PM EDT) Sodium 133(L) 135 - 145 mmol/L [facility] Potassium 4.0 3.3 - 5.1 mmol/L [facility] Chloride 104 96 - 108 mmol/L [facility] Carbon Dioxide 16(L) 22 - 29 mmol/L [facility] Anion Gap 17 12 - 20 [facility] Urea Nitrogen (BUN) 79(H) 9 - 16 mg/dL [facility] Creatinine, Serum 10.12(HH) 0.5 - 1.4 mg/dL [facility] Comment:Critical value for C RES: Results called to and read brittneyy: RHEACARLOS ENRIQUE Person calling: Designer Material Date: 02/17/23 Time: 1245 Creatinine Clr Calc Pharmacy 9.5 [facility] Comment:eGFR (calculated fro m the MDRD study equation) and eCrCl(calculated from the Cockcroft-Gault equation) are based ondifferent parameters and may not yield comparable results.If eCrCl result is absurd, please check patient'sheight/weight. Estimated Glomerular Filt Rate 5 [facility] Comment:NOTE: For -Am erican individuals, multiply the result by 1.210.Chronic Kidney Disease: Estimated GFR < 60 mL/min/1.34p8Prekij Kidney Disease: Estimated GFR < 15 mL/min/1.73m2 Glucose 113 60 - 115 mg/dL [facility] Calcium 8.1(L) 8.4 - 10.2 mg/dL [facility] Bilirubin, Total 0.7 0.0 - 1.0 mg/dL [facility] Aspartate Amino Transferase 43(H) 5 - 37 U/L [facility] Alanine Aminotransferase 30 0 - 40 U/L [facility] Total Protein 7.9 6.5 - 8.0 g/dL [facility] Albumin Level 4.0 3.5 - 5.0 g/dL [facility] Alkaline Phosphatase 92 39 - 117 U/L [facility] 02/17/2023 12:2 0 PM EDT 02/17/2023 12:24 PM EDT us [facility] External Provider LAB BLO OD ORDERABLES Final Result [facility] [address] [place] [phone] [phone] documented in this encounter Visit Diagnoses Diagnosis Low back pain at multiple sites- Primary documented in this encounter Care Teams Tube Splicer Relationship Specialty Start Date End Date Dariela Zapata MD [address] [place] [address] PCP - General Family Medicine 10/14/19 Sharon Lyon, NEGRO [address] [place] [address] Registered Nurse Family Medicine 07/31/25 Amelia Houston 07/31/25 documented as of this encounter
--- OUTSIDE RECORDS SUMMARY | 2025-10-11 08:31 | XMS_ITS | Encounter Summary ---
Author Organization [employer] Address 75 [facility] 7t [place] [address] Care Team Providers Care Utility Helicopter Repairer Name Role Phone Dariela Zapata MD Primary Care Provide r Sharon Lyon RN Unavailable [phone] Amelia Houston Unavailable Reason for Visit * Reason Comments Med Refill Encounter Details Date Type Department Care Team (Late st Contact Info) Description 10/05/2025 Refill [facility] MEDICINE [address] [place] [address] Dariela Zapata MD [address] [place], [place] [phone] Low back pain at multiple sites; Pain Social History Tobacco Use Types Packs/Day [...] Description 10/20/2025 9:00 AM EST Office Visit [facility] MEDICINE [address] [place] [address] Dariela Zapata MD [address] [place] [address] 02/25/2026 10:30 AM EDT Office Visit [facility] OPTOMETRY [address] [place] [address] [place], Tonya, OD [address] [place] [address] documented as of this encounter Visit Diagnoses Diagnosis Low back pain at multiple sites Pain Generalized pain documented in this encounter Additional Health Concerns Assessment Noted Time PHQ-9 Depression Total Score: 6 07/15/20 25 9:19 AM EDT documented as of this encounter Care Teams Utility Helicopter Repairer Relationship Specialty Start Date End Date Dariela Zapata MD [address] [place] [address] PCP - General Family Medicine 10/14/19 Sharon Lyon RN [address] [place] [address] Registered Nurse Family Medicine 07/31/25 Amelia Houston 07/31/25 documented as of this encounter
--- OUTSIDE RECORDS SUMMARY | 2025-10-11 08:31 | XMS_ITS | Encounter Summary ---
Author Organization [employer] Address 75 [facility] 7t [place] [address] Care Team Providers Care Registered Client Associate Name Role Phone Dariela Zapata MD Primary Care Provide r Sharon Lyon RN Unavailable [phone] Amelia Houston Unavailable Reason for Visit * Reason Comments Med Refill Encounter Details Date Type Department Care Team (Late st Contact Info) Description 11/10/2024 Refill [facility] [address] [place] [address] Dariela Zapata MD [address] [place], [place] [phone] Insomnia, unspecified type Social History Tobacco Use [...] Description 10/20/2025 9:00 AM EST Office Visit [facility] [address] [place] [address] Dariela Zapata MD [address] [place] [address] 02/25/2026 10:30 AM EDT Office Visit [facility] OPT[facility]ETRY [address] [place] [address] [place], Tonya, OD [address] [place] [address] documented as of this encounter Visit Diagnoses Diagnosis Insomnia, unspecified type documented in this encounter Additional Health Concerns Assessment Noted Time PHQ-9 Depression Total Score: 0 03/25/20 24 2:34 PM EDT documented as of this encounter Care Teams Registered Client Associate Relationship Specialty Start Date End Date Dariela Zapata MD [address] [place] [address] PCP - General Family Medicine 10/14/19 Sharon Lyon RN [address] [place] [address] Registered Nurse Family Medicine 07/31/25 Amelia Houston 07/31/25 documented as of this encounter
--- OUTSIDE RECORDS SUMMARY | 2025-10-11 08:31 | XMS_ITS | Encounter Summary ---
Author Organization [employer] Address [address] [place] [address] 7t [place] [address] Care Team Providers Care Stock Parts Inspector Name Role Phone Dariela Zapata MD Primary Care Provide r Sharon Lyon RN Unavailable [phone] Amelia Houston Unavailable Reason for Visit * Reason Comments Med Refill Encounter Details Date Type Department Care Team (Late st Contact Info) Description 06/08/2023 Refill [facility] MEDICINE [address] [place] [address] Dariela Zapata MD [address] [place] [address] Insomnia, unspecified type Social History Tobacco Use [...] Description 10/20/2025 9:00 AM EST Office Visit [facility] [address] [place] [address] Dariela Zapata MD [address] [place] [address] 02/25/2026 10:30 AM EDT Office Visit [facility] OPTOMETRY [address] [place] [address] Tonya Haynes, OD [address] [place] [address] documented as of this encounter Visit Diagnoses Diagnosis Insomnia, unspecified type documented in this encounter Care Teams Stock Parts Inspector Relationship Specialty Start Date End Date Dariela Zapata MD [address] [place], [place] [phone] PCP - General Family Medicine 10/14/19 Sharon Lyon, NEGRO [address] [place] [address] Registered Nurse Family Medicine 07/31/25 Amelia Houston 07/31/25 documented as of this encounter
--- OUTSIDE RECORDS SUMMARY | 2025-10-11 08:31 | XMS_ITS | Encounter Summary ---
Author Organization [employer] Address 75 [facility] 7t [place] [address] Care Team Providers Care Cutter Operator Helper Name Role Phone Dariela Zapata MD Primary Care Provide r Sharon Lyon RN Unavailable [phone] Amelia Houston Unavailable Reason for Visit * Reason Comments Med Refill Encounter Details Date Type Department Care Team (Late st Contact Info) Description 01/17/2024 Refill [facility] MEDICINE [address] [place] [address] Dariela Zapata MD [address] [place], [place] [phone] Low back pain at multiple sites; Pain; Crohn's disease with complication, unspecified gastrointestinal tract location (CMS/HCC); Insomnia, unspecified type Social History Tobacco Use Types Packs/Day Years Used Date Smoking Tobacco: Never Assessed Housing Stability Answer Date Recorded What is your housing situation today? I do not have housing (Staying with others, in a hotel, in a mcfp, living outside on the street, on a [...] Description 10/20/2025 9:00 AM EST Office Visit [facility] MEDICINE [address] [place] [address] Dariela Zapata MD [address] [place] [address] 02/25/2026 10:30 AM EDT Office Visit [facility] OPTOMETRY [address] [place] [address] [place], Tonya, OD [address] [place] [address] documented as of this encounter Visit Diagnoses Diagnosis Low back pain at multiple sites Pain Generalized pain Crohn's disease with complication, unspecified gastrointestinal tract location (CMS/HCC) (HCC) Insomnia, unspecified type documented in this encounter Care Teams Cutter Operator Helper Relationship Specialty Start Date End Date Dariela Zapata MD [address] [place] [address] PCP - General Family Medicine 10/14/19 Sharon Lyon, NEGRO [address] [place] [address] Registered Nurse Family Medicine 07/31/25 Amelia Houston 07/31/25 documented as of this encounter
--- OUTSIDE RECORDS SUMMARY | 2025-10-11 08:31 | XMS_ITS | Encounter Summary ---
Author Organization [employer] Address 75 [facility] 7t [place] [address] Care Team Providers Care Nursing Assoc Name Role Phone Dariela Zapata MD Primary Care Provide r Sharon Lyon RN Unavailable [phone] Amelia Houston Unavailable Reason for Visit * Reason Onset Date Comments Med Refill 01/22/2024 Encounter Details Date Type Department Care Team (Late st Contact Info) Description 01/22/2024 Telephone [facility] MEDICINE [address] [place] [address] Dariela Zapata MD [address] [place], [place] [phone] Med Refill Social History Tobacco Use Types [...] 10 MG tablet To be sent to: [facility] - [place], [place] - [address] [place] [address] documented in this encounter Plan of Treatment Upcoming Encounters Date Type Department Care Team (Late st Contact Info) Description 10/20/2025 9:00 AM EST Office Visit [facility] MEDICINE [address] [place] [address] Dariela Zapata MD [address] [place] [address] 02/25/2026 10:30 AM EDT Office Visit [facility] OPTOMETRY [address] [place] [address] Tonya Haynes, OD [address] [place] [address] documented as of this encounter Visit Diagnoses Not on filedocumented in this encounter Care Teams Nursing Assoc Relationship Specialty Start Date End Date Dariela Zapata MD [address] [place] [address] PCP - General Family Medicine 10/14/19 Sharon Lyon RN [address] [place] [address] Registered Nurse Family Medicine 07/31/25 Amelia Houston 07/31/25 documented as of this encounter
--- OUTSIDE RECORDS SUMMARY | 2025-10-11 08:31 | XMS_ITS | Encounter Summary ---
Author Organization [employer] Address 75 [facility] 7t [place] [address] Care Team Providers Care Full Time Name Role Phone Dariela Zapata MD Primary Care Provide r Sharon Lyon RN Unavailable [phone] Amelia Houston Unavailable Reason for Visit * Reason Comments Med Refill Encounter Details Date Type Department Care Team (Late st Contact Info) Description 11/09/2024 Refill [facility] MEDICINE [address] [place] [address] Dariela Zapata MD [address] [place], [place] [phone] Pain Social History Tobacco Use Types Packs/Day [...] Description 10/20/2025 9:00 AM EST Office Visit [facility] MEDICINE [address] [place] [address] Dariela Zapata MD [address] [place] [address] 02/25/2026 10:30 AM EDT Office Visit [facility] OPTOMETRY [address] [place] [address] Dallas, Tonya, OD [address] [place] [address] documented as of this encounter Visit Diagnoses Diagnosis Pain Generalized pain documented in this encounter Additional Health Concerns Assessment Noted Time PHQ-9 Depression Total Score: 0 03/25/20 24 2:34 PM EDT documented as of this encounter Care Teams Full Time Relationship Specialty Start Date End Date Dariela Zapata MD [address] [place] [address] PCP - General Family Medicine 10/14/19 Sharon Lyon RN [address] [place] [address] Registered Nurse Family Medicine 07/31/25 Amelia Houston 07/31/25 documented as of this encounter
--- OUTSIDE RECORDS SUMMARY | 2025-10-11 08:31 | XMS_ITS | Encounter Summary ---
Author Organization [facility] Address [address] [place] [address] 7t [place] [address] Care Team Providers Care Post Adoption Coordinator Name Role Phone Dariela Zapata MD Primary Care Provide r Sharon Lyon RN Unavailable [phone] Amelia Houston Unavailable Encounter Details Date Type Department Care Team (Late st Contact Info) Description 07/24/2023 Orders Only [facility] MEDICINE [address] [place] [address] Provider, MD Rajiv Social History Tobacco Use Types Packs/Day Years [...] Description 10/20/2025 9:00 AM EST Office Visit [facility] MEDICINE [address] [place] [address] Dariela Zapata MD [address] [place] [address] 02/25/2026 10:30 AM EDT Office Visit [facility] OPTOMETRY [address] [place] [address] Tonya Haynes, OD [address] [place] [address] documented as of this encounter Procedures Procedure Name Priority Date/Time Associated Diagnosis Comments HM COLONOSCOPY Routine 10/26/2016 documented in this encounter Results * Hm Colonoscopy (10/26/2016) us Historical Provider HEALTH MAINTENANCE Final Result documented in this encounter Visit Diagnoses Not on filedocumented in this encounter Care Teams Post Adoption Coordinator Relationship Specialty Start Date End Date Dariela Zapata MD [address] [place] [address] PCP - General Family Medicine 10/14/19 Sharon Lyon RN [address] [place] [address] Registered Nurse Family Medicine 07/31/25 Amelia Houston 07/31/25 documented as of this encounter
--- OUTSIDE RECORDS SUMMARY | 2025-10-11 08:31 | XMS_ITS | Encounter Summary ---
Author Organization [employer] Address [address] [place] [address] 7t [place] [address] Care Team Providers Care Machine Marker Name Role Phone Dariela Zapata MD Primary Care Provide r Sharon Lyon RN Unavailable [phone] Amelia Houston Unavailable Reason for Visit * Reason Comments Med Refill Encounter Details Date Type Department Care Team (Late st Contact Info) Description 07/06/2023 Refill [facility] MEDICINE [address] [place] [address] Dariela Zapata MD [address] [place] [address] Insomnia, unspecified type Social History Tobacco Use [...] Description 10/20/2025 9:00 AM EST Office Visit [facility] MEDICINE [address] [place] [address] Dariela Zapata MD [address] [place] [address] 02/25/2026 10:30 AM EDT Office Visit [facility] OPTOMETRY [address] [place] [address] Tonya Haynes, OD [address] [place] [address] documented as of this encounter Visit Diagnoses Diagnosis Insomnia, unspecified type documented in this encounter Care Teams Machine Marker Relationship Specialty Start Date End Date Dariela Zapata MD [address] [place], [place] [phone] PCP - General Family Medicine 10/14/19 Sharon Lyon, NEGRO [address] [place] [address] Registered Nurse Family Medicine 07/31/25 Amelia Houston 07/31/25 documented as of this encounter
--- OUTSIDE RECORDS SUMMARY | 2025-10-11 08:31 | XMS_ITS ---
Author Organization [employer] Address 75 [facility] 7t [place] [address] Care Team Providers Care Buyer Assistant Name Role Phone Dariela Zapata MD Primary Care Provide r Sharon Lyon RN Unavailable [phone] Amelia Houston Unavailable [facility] Complex Status:Outreach In Progress (Enrolling) Start date:07/31/2025 Enrollment reason:ADT Feed Overview ED- Pt went to [facility] ED on 07/30/25. Please outreach for enrollment. Case Team Name Relationship Phone Amelia Houston(Responsible Staff) [phone] Continued Care and Services Coordination
--- OUTSIDE RECORDS SUMMARY | 2025-10-11 08:31 | XMS_ITS | Encounter Summary ---
Author Organization [employer] Address [address] [facility] [address]t [place] [address] Care Team Providers Care Mottler Operator Name Role Phone Dariela Zapata MD Primary Care Provide r Sharon Lyon RN Unavailable Amelia Houston Unavailable Reason for Visit * Reason Comments Pre-visit Planning SDOH screening compl eted on 07/07/2025 Encounter Details Date Type Department Care Team (Late st Contact Info) Description 10/06/2025 Patient Outreach [facility] MED[facility]INE [address] [place] [address] Dariela Zapata MD [address] [place] [address] Pre-visit Planning (SDOH screening completed on 07/07/2025) Social History Tobacco Use Types Packs/Day Years [...] as of this encounter Progress Notes * Rebecca Cisneros - 10/06/2025 8:45 AM EST CC Rebecca placed successful outbound call to patient for pre-visit planning. Patient name and confirmed. Patient confirms appt date and time, and has transportation. Biggest concern for appointment at this time is none Patient advised to bring to appointment a photo id and insurance card. Appropriate screenings completed in anticipation of appointment. documented in this encounter Plan of Treatment Upcoming Encounters Date Type Department Care Team (Late st Contact Info) Description 10/20/2025 9:00 AM EST Office Visit [facility] [address] [place] [address] Dariela Zapata MD [address] [place] [address] 02/25/2026 10:30 AM EDT Office Visit [facility] OPTOMETRY [address] [place] [address] Tonya Haynes, OD [address] [place] [address] documented as of this encounter Visit Diagnoses Not on filedocumented in this encounter Additional Health Concerns Assessment Noted Time PHQ-9 Depression Total Score: 6 07/15/20 25 9:19 AM EDT documented as of this encounter Care Teams Mottler Operator Relationship Specialty Start Date End Date Dariela Zapata MD [address] [place] [address] PCP - General Family Medicine 10/14/19 Sharon Lyon RN [address] [place] [address] Registered Nurse Family Medicine 07/31/25 Amelia Houston 07/31/25 documented as of this encounter
--- OUTSIDE RECORDS SUMMARY | 2025-10-11 08:31 | XMS_ITS | Encounter Summary ---
Author Organization [employer] Address [address] [facility] 7t [place] [address] Care Team Providers Care Strategic Partnership Manager Name Role Phone Dariela Zapata MD Primary Care Provide r Sharon Lyon RN Unavailable [phone] Amelia Houston Unavailable Reason for Visit * Reason Comments Recovery Supports Encounter Details Date Type Department Care Team (Late st Contact Info) Description 10/07/2025 Patient Outreach [facility] MEDICINE [address] [place] [address] Leroy Guerra Recovery Supports Social History Tobacco Use Types Packs/Day Years [...] as of this encounter Progress Notes * Leroy Guerra - 10/07/2025 4:11 PM EST I met with Jayden today. Setting: in person at [facility] Recovery Wellness Goals worked on: Physical Health/Mental Health Social Stability Spiritual Wellness Action taken/next steps: Attended recovery support group Contingency management Additional comments: Leroy Guerra documented in this encounter Plan of Treatment Upcoming Encounters Date Type Department Care Team (Late st Contact Info) Description 10/20/2025 9:00 AM EST Office Visit [facility] MEDICINE [address] [place] [address] Dariela Zapata MD [address] [place] [address] 02/25/2026 10:30 AM EDT Office Visit [facility] OPTOMETRY [address] [place] [address] Tonya Haynes, CONG [address] [place] [address] documented as of this encounter Visit Diagnoses Not on filedocumented in this encounter Additional Health Concerns Assessment Noted Time PHQ-9 Depression Total Score: 6 07/15/20 25 9:19 AM EDT documented as of this encounter Care Teams Strategic Partnership Manager Relationship Specialty Start Date End Date Dariela Zapata MD [address] [place] [address] PCP - General Family Medicine 10/14/19 Sharon Lyon, NEGRO [address] [place] [address] Registered Nurse Family Medicine 07/31/25 Amelia Houston 07/31/25 documented as of this encounter
--- OUTSIDE RECORDS SUMMARY | 2025-10-11 08:31 | XMS_ITS | Encounter Summary ---
Author Organization [employer] Address [address] [facility] 7t [place] [address] Care Team Providers Care Retail Customer Service Representative Name Role Phone Dariela Zapata MD Primary Care Provide r Sharon Lyon RN Unavailable [phone] Amelia Houston Unavailable Reason for Referral * Imaging (Routine) - Closed Specialty Diagnoses / Procedures Referred By Contac t Referred To Contact Radiology Diagnoses Abnormal CXR Procedures CT Chest w/o Contrast Rayne Fierro MD [address] [place] [address] Phone: tel: fax: [facility] [address] [place] [phone] Phone: tel: fax: Referral ID Status Reason Start Date Expiration Date Visits Re quested Visits Authorized [id number] Closed 10/18/2024 10/18/2025 1 1 Encounter Details Date Type Department Care Team (Late st Contact Info) Description 10/18/2024 Orders Only [facility] MED[facility]INE [address] [place] [address] [phone] Rayne Fierro MD [address] [place] [address] [phone] Abnormal CXR (Primary Dx) Social History Tobacco [...] Description 10/20/2025 9:00 AM EST Office Visit [facility]INE [address] [place] [address] Dariela Zapata MD [address] [place] [address] 02/25/2026 10:30 AM EDT Office Visit [facility] OPTOMETRY [address] [place] [address] Tonya Haynes, OD [address] [place] [address] Scheduled Orders Name Type Priority Associated Diagnoses [...] documented as of this encounter Care Teams Retail Customer Service Representative Relationship Specialty Start Date End Date Darilea Zapata MD [address] [place], [place] [phone] PCP - General Family Medicine 10/14/19 Sharon Lyon, NEGRO [address] [place] [address] Registered Nurse Family Medicine 07/31/25 Amelia Houston 07/31/25 documented as of this encounter
--- OUTSIDE RECORDS SUMMARY | 2025-10-11 08:31 | XMS_ITS | Encounter Summary ---
Author Organization [employer] Address [address] [facility] 7t [place] [address] Care Team Providers Care Letterer Name Role Phone Dariela Zapata MD Primary Care Provide r Sharon Lyon RN Unavailable [phone] Amelia Houston Unavailable Reason for Visit * Reason Onset Date Comments Med Refill 11/21/2024 Encounter Details Date Type Department Care Team (Late st Contact Info) Description 11/21/2024 Telephone [facility] [address] [place] [address] Dariela Zapata MD [address] [place], [place] [phone] Med Refill Social History Tobacco Use Types [...] AM EST Gabapentin and tylenol sent to [facility] on 11/20/24. Ambien pended to PCP. * Telephone Encounter - Gretchen Phillips - 11/21/2024 8:13 AM EST TC from pt requesting medication refill. Medications needing refill :gabapentin (Neurontin) 300 MG capsule zolpidem (Ambien) 10 MG tablet acetaminophen (Tylenol 8 Hour) 650 MG ER tablet To be sent to: [facility] documented in this encounter Plan of Treatment Upcoming Encounters Date Type Department Care Team (Late st Contact Info) Description 10/20/2025 9:00 AM EST Office Visit [facility] MEDICINE [address] [place] [address] Dariela Zapata MD [address] [place] [address] 02/25/2026 10:30 AM EDT Office Visit [facility] OPTOMETRY [address] [place], [place] [phone] [place], Tonya, OD [address] [place], [place] [phone] documented as of this encounter Visit Diagnoses Not on filedocumented in this encounter Additional Health Concerns Assessment Noted Time PHQ-9 Depression Total Score: 0 03/25/20 24 2:34 PM EDT documented as of this encounter Care Teams Letterer Relationship Specialty Start Date End Date Dariela Zapata MD [address] [place], [place] [phone] PCP - General Family Medicine 10/14/19 Sharon Lyon RN [address] [place] [address] Registered Nurse Family Medicine 07/31/25 Amelia Houston 07/31/25 documented as of this encounter
--- OUTSIDE RECORDS SUMMARY | 2025-10-11 08:31 | XMS_ITS | Encounter Summary ---
Author Organization [email or web address] Address [address] [facility] [address] 7[address] [place] [address] Care Team Providers Care Electrician Control Equipment Name Role Phone Dariela Zapata MD Primary Care Provide r Sharon Lyon RN Unavailable [phone] Amelia Houston Unavailable Encounter Details Date Type Department Care Team (Latest Contact Info) Description 10/06/2025 Travel Social History Tobacco Use Types Packs/Day Years [...] Description 10/20/2025 9:00 AM EST Office Visit [facility]INE [address] [place] [address] Dariela Zapata MD [address] [place] [address] 02/25/2026 10:30 AM EDT Office Visit [facility] OPTOMETRY [address] [place] [address] Dallas, Tonya, OD [address] [place] [address] documented as of this encounter Visit Diagnoses Not on filedocumented in this encounter Additional Health Concerns Assessment Noted Time PHQ-9 Depression Total Score: 6 07/15/20 25 9:19 AM EDT documented as of this encounter Care Teams Electrician Control Equipment Relationship Specialty Start Date End Date Dariela Zapata MD [address] [place] [address] PCP - General Family Medicine 10/14/19 Sharon Lyon RN [address] [place] [address] Registered Nurse Family Medicine 07/31/25 Amelia Houston 07/31/25 documented as of this encounter
--- OUTSIDE RECORDS SUMMARY | 2025-10-11 08:31 | XMS_ITS | Clinical Summary ---
Author Organization [facility] Address [address] [facility] [address] [place] [address] Phone Care Team Providers Care Field Care Coordinator Name Role Phone Lucy Bryant MD Primary [...] Insurance Medicaid [place] Care Teams Field Care Coordinator Relationship Specialty Start Date End Date Lucy Bryant MD PCP - General 11/23/20
--- OUTSIDE RECORDS SUMMARY | 2025-10-11 08:31 | XMS_ITS | Encounter Summary ---
Author Organization [employer] Address [address] [facility] 7t [place] [address] Care Team Providers Care Seamer Name Role Phone Dariela Zapata MD Primary Care Provide r Sharon Lyon RN Unavailable [phone] Amelia Houston Unavailable Encounter Details Date Type Department Care Team (Late st Contact Info) Description 02/28/2023 Orders Only [facility] P[facility]S [address] [place] [address] Celena Cannon LPN Social History Tobacco Use [...] EST Office Visit [facility] MED[facility]INE [address] [place] [address] Dariela Zapata MD [address] [place] [address] 02/25/2026 10:30 AM EDT Office Visit [facility] OPTOMETRY [address] [place] [address] Dallas, Tonya, OD [address] [place] [address] documented as of this encounter Visit Diagnoses Not on filedocumented in this encounter Care Teams Seamer Relationship Specialty Start Date End Date Dariela Zapata MD [address] [place] [address] PCP - General Family Medicine 10/14/19 Sharon Lyon RN [address] [place] [address] Registered Nurse Family Medicine 07/31/25 Amelia Houston 07/31/25 documented as of this encounter
--- OUTSIDE RECORDS SUMMARY | 2025-10-11 08:31 | XMS_ITS | Encounter Summary ---
Author Organization [employer] Address [address] [facility] [address]t [place] [address] Care Team Providers Care Civil Designer Name Role Phone Dariela Zapata MD Primary Care Provide r Sharon Lyon RN Unavailable [phone] Amelia Houston Unavailable Reason for Visit * Reason Onset Date Comments Med Refill 07/23/2024 Encounter Details Date Type Department Care Team (Late st Contact Info) Description 07/23/2024 Telephone [facility] [address] [place] [address] Dariela Zapata MD [address] [place], [place] [phone] Med Refill Social History Tobacco Use Types [...] 5 % patch To be sent to: [facility] [place], [place] - [address] [facility] documented in this encounter Plan of Treatment Upcoming Encounters Date Type Department Care Team (Late st Contact Info) Description 10/20/2025 9:00 AM EST Office Visit [facility] [address] [place] [address] Dariela Zapata MD [address] [place] [address] 02/25/2026 10:30 AM EDT Office Visit [facility] OPTOMETRY [address] [place] [facility], [place] [phone] Dallas, Tonya, OD [address] [place], [place] [phone] documented as of this encounter Visit Diagnoses Not on filedocumented in this encounter Additional Health Concerns Assessment Noted Time PHQ-9 Depression Total Score: 0 03/25/20 24 2:34 PM EDT documented as of this encounter Care Teams Civil Designer Relationship Specialty Start Date End Date Dariela Zapata MD [address] [place], [place] [phone] PCP - General Family Medicine 10/14/19 Sharon Lyon, NEGRO [address] [place] [address] Registered Nurse Family Medicine 07/31/25 Amelia Houston 07/31/25 documented as of this encounter
[2025-10-11 08:33] LABS: White Blood Count 8.0 X10*3/uL (4.8-10.8)
[2025-10-11 08:34] LABS: Hematocrit 37.8 % (42.0-52.0); Hemoglobin 12.0 g/dl (14.0-18.0); Imm Gran Abs Auto 0.02 X10*3/uL (0.00-0.03); Imm Gran Pct Auto 0.2 % (0.0-0.4); Lymphocytes Absolute Auto 1.6 X10*3/uL (1.2-4.9); Mean Corpuscular HGB Conc 31.7 g/dl (31.0-36.0); Mean Corpuscular Hemoglobin 29.1 pg (27.0-33.0); Mean Corpuscular Volume 91.5 fL (80.0-98.0); NRBC Abs Auto 0.000 X10*3/uL (0.0-0.012); NRBC Pct Auto 0.0 /100WBC (0.0-0.2); Platelet Count 256 X10*3/uL (160-400); Red Blood Count 4.13 X10*6/uL (4.60-5.80)
[2025-10-11 09:01] VITALS: BP 196/118; PULSE 82; RESP 16; TEMP 36.6; O2SAT 98
[2025-10-11 09:25] VITALS: RESP 18
[2025-10-11 09:25] LABS: Alanine Aminotransferase 26 U/L (0-40); Albumin Level 4.3 g/dL (3.5-5.0); Alkaline Phosphatase 82 U/L (39-117); Anion Gap 14 (12-20); Aspartate Amino Transferase 30 U/L (5-37); Blood Urea Nitrogen 23 mg/dL (9-16); Calcium 9.5 mg/dL (8.4-10.2); Carbon Dioxide 22 mmol/L (22-29); Chloride 108 mmol/L (96-108); Creatinine Clr Calc Pharmacy 53.6; Estimated Glomerular Filt Rate 40; Lipase 96 U/L (8-78); Potassium 4.6 mmol/L (3.3-5.1); Sodium 139 mmol/L (135-145); Total Protein 8.5 g/dL (6.5-8.0)
[2025-10-11 10:20] VITALS: BP 189/114; PULSE 80; RESP 16; TEMP 36.8; O2SAT 98
[2025-10-11] MEDS: Lidocaine HCl Viscous 2 % 15 ML SOLUTION MUCOUS MEM (12:09)
[2025-10-11 12:16] VITALS: BP 189/114; PULSE 80; RESP 16; TEMP 36.8; O2SAT 98
[2025-10-11 12:55] LABS: CDiff Gene PCR NEGATIVE (Negative)
[2025-10-11 13:41] LABS: E. coli EAEC Not Detected (Not Detect.); E. coli EPEC Not Detected (Not Detect.); E. coli ETEC Not Detected (Not Detect.); E. coli STEC Not Detected (Not Detect.); Shigella sp./EIEC Not Detected (Not Detect.)
== END 2025-10-11 12:17 | disposition home or self-care (01) ==
PROVIDERS: Emergency Provider Emergency Medicine; PCP Internal Medicine
DX: K62.89 Other specified diseases of anus and rectum (principal); R11.2 Nausea with vomiting, unspecified; Z79.899 Other long term (current) drug therapy; Z76.0 Encounter for issue of repeat prescription
CPT/HCPCS: 36415; 74176; 80048; 80076; 83690; 85025; 87493; 87507; 96374; 99284; J2270

== ENCOUNTER → 2025-10-11 08:25 | Outpatient (BNV) | payer MEDICAID, SELFPAY | PROVIDERS: Emergency Provider Emergency Medicine; PCP Internal Medicine; Visit Provider Radiology Diagnostic Radiology | DX: R10.9 Unspecified abdominal pain (principal); Z87.19 Personal history of other diseases of the digestive system | CPT/HCPCS: 74176 ==